=== PATIENT | female | born 1960 | race Caucasian/White ===

== ENCOUNTER 2018-04-06 14:55 | Observation (INO) | payer OTHER ==
[2018-04-06] MEDS ORDERED: ASPIRIN 81 MG PO STA (17:12)
[2018-04-06 17:14] LABS: Basophils % (A) 1 %; Eosinophils # (A) 0.2 k/uL (0-0.7); Eosinophils % (A) 3 %; Lymphocytes # (A) 1.3 k/uL (1.0-4.8); Lymphocytes % (A) 20 %; MCH 32.5 pg (25.0-35.0); MCHC 32.7 g/dL (31.0-37.0); MCV 99.4 fL (80.0-100.0); Macrocytosis Slight; Mean Platelet Volume 7.4; Monocytes # (A) 0.4 k/uL (0-1.0); Monocytes % (A) 6 %; Neutrophils # (A) 4.5 k/uL (1.3-7.7); Neutrophils % (A) 69 %; Platelet Count 228 k/uL (150-450); RBC 4.32 m/uL (3.80-5.40); RDW 14.9 % (11.5-15.5); WBC 6.5 k/uL (3.8-10.6)
[2018-04-06 17:21] LABS: ALT 23 U/L (9-52); AST 23 U/L (14-36); Alkaline Phosphatase 99 U/L (38-126); Anion Gap 12 mmol/L; Blood Urea Nitrogen 7 mg/dL (7-17); Calcium 8.9 mg/dL (8.4-10.2); Carbon Dioxide 23 mmol/L (22-30); Chloride 107 mmol/L (98-107); Glucose 88 mg/dL (74-99); Potassium 4.2 mmol/L (3.5-5.1); Sodium 142 mmol/L (137-145); Total Bilirubin 0.4 mg/dL (0.2-1.3); Total Protein 6.8 g/dL (6.3-8.2)
[2018-04-06 17:28] LABS: Partial Thromboplastin Time 25.1 sec (22.0-30.0); Prothrombin Time 10.1 sec (9.0-12.0)
[2018-04-06 17:31] LABS: Creatine Kinase 107 U/L (30-135)
[2018-04-06 17:43] LABS: Troponin I <0.012 ng/mL (0.000-0.034)
[2018-04-06 17:47] LABS: D-Dimer 0.78 mg/L FEU (<0.60)
--- NOTE | 2018-04-06 18:12 | XR ---
EXAMINATION TYPE: XR chest 2V DATE OF EXAM: 04/06/2018 COMPARISON: 02/18/2014 HISTORY: Chest pain TECHNIQUE: Frontal and lateral views of the chest are obtained. FINDINGS: Heart and mediastinum are normal. Lungs are clear. Diaphragm is normal. Bony thorax appear s normal. There are chest leads. IMPRESSION: No active cardiopulmonary disease. Normal heart. No change.
--- NOTE | 2018-04-06 18:59 | CT ---
EXAMINATION TYPE: CT angio chest DATE OF EXAM: 04/06/2018 6:46 PM COMPARISON: NONE HISTORY: Chest pain with SOB CT DLP: 299.5 mGycm Automated exposure control for dose reduction was used. CONTRAST: CTA scan of the thorax is performed with IV Contrast, patient injected with 90 mL of Isovue 370, pulm onary embolism protocol. There are 3-D post processed images.. FINDINGS: There is subpleural interstitial density at the posterior lung bases. There is no pulmonary consolida tion. There is no pleural effusion. There is no pericardial effusion. There are no filling defects in the pulmonary arteries. Thoracic aorta shows no evidence of aneurysm or dissection. Heart size is fairly normal. There is no pericardial effusion. There is spurring in th e thoracic spine. IMPRESSION: NO EVIDENCE OF PULMONARY EMBOLISM. MINIMAL PULMONARY FIBROTIC CHANGES.
[2018-04-06] MEDS ORDERED: HEPARIN SODIUM,PORCINE 5,000 UNIT/ML 1 ML VIAL IV ONE (20:00)
[2018-04-06] MEDS ORDERED: HEPARIN SOD,PORK IN 0.45% NACL 25,000 UNIT in 0.45% NACL 1 500ML.BAG IV SCH (20:00)
[2018-04-06] MEDS ORDERED: NITROGLYCERIN SL TABS 0.4 MG TAB SUBLINGUAL PRN (20:00)
[2018-04-06 21:25] VITALS: BMI 33.8
[2018-04-06 22:03] LABS: Creatine Kinase 91 U/L (30-135)
[2018-04-06] MEDS ORDERED: ATORVASTATIN 80 MG TAB PO SCH (22:15)
[2018-04-06] MEDS ORDERED: ISOSORBIDE MONONITRATE ER 30 MG TAB.ER.24H PO SCH (22:15)
[2018-04-06] MEDS ORDERED: AMITRIPTYLINE HCL 25 MG TAB PO SCH (22:15)
[2018-04-06] MEDS ORDERED: QUEtiapine 100 MG TAB PO SCH ×2 (22:15→22:37)
[2018-04-06] MEDS ORDERED: OXYBUTYNIN XL 5 MG TAB.ER.24 PO SCH (22:15)
[2018-04-06 22:16] LABS: Creatine Kinase MB 0.9 ng/mL (0.0-2.4); Troponin I <0.012 ng/mL (0.000-0.034)
[2018-04-06] MEDS: METOPROLOL TARTRATE 25 MG TAB PO SCH (22:27)
[2018-04-06] MEDS: oxyCODONE-APAP 10-325MG 1 EACH TAB PO SCH (22:32)
[2018-04-06] MEDS: OXcarbazepine 150 MG TAB PO SCH (22:35)
[2018-04-06] MEDS ORDERED: OXcarbazepine 150 MG TAB PO SCH (22:45)
[2018-04-06] MEDS: PREGABALIN 100 MG CAP PO SCH (23:02)
[2018-04-06] MEDS: QUEtiapine 100 MG TAB PO SCH (23:26)
[2018-04-07 03:37] VITALS: RESP 16
[2018-04-07 03:49] LABS: Creatine Kinase 84 U/L (30-135)
[2018-04-07 03:50] LABS: Cholesterol 219 mg/dL (<200); HDL Cholesterol 45 mg/dL (40-60); LDL Cholesterol,Calculated 125 mg/dL (0-99); Triglycerides 243 mg/dL (<150)
[2018-04-07 04:02] LABS: Troponin I <0.012 ng/mL (0.000-0.034)
[2018-04-07] MEDS: OXcarbazepine 150 MG TAB PO SCH (08:45)
[2018-04-07] MEDS: QUEtiapine 100 MG TAB PO SCH (08:45)
[2018-04-07] MEDS: PREGABALIN 100 MG CAP PO SCH (08:45)
[2018-04-07] MEDS: METOPROLOL TARTRATE 25 MG TAB PO SCH (08:45)
[2018-04-07] MEDS: oxyCODONE-APAP 10-325MG 1 EACH TAB PO SCH (08:46)
[2018-04-07 08:51] VITALS: TEMP 97.6
[2018-04-07] MEDS ORDERED: ASPIRIN 325 MG TAB PO SCH (09:00)
[2018-04-07] MEDS ORDERED: HEPARIN SODIUM,PORCINE 5,000 UNIT/ML 1 ML VIAL IV PRN (10:49)
[2018-04-07 12:01] VITALS: BP 133/81; PULSE 65
--- NOTE | 2018-04-07 12:54 | P.HPIM ---
History of Present Illness 57-year-old female came in with compensative chest pain, her pain started as a back pain in the lower thoracic spine area radiating to the front. Has been going on for couple days but yesterday her pain started going to the front because of which she is concerned came to ER patient pain is about 7/10 in severity nonradiating and associated shortness of breath and nonpleuritic patient and minimally elevated d-dimer because of which patient underwent CT angios the chest which showed severe thoracic spine disease and degenerative disc disease with the bone spurs may be contributing to her pain. Patient troponins are negative or does have some mild acute ST-T wave changes although they're chronic. And is wishing to go home. Patient was complaining of lightheadedness with improved compared to yesterday patient blood pressures in 90s systolic, patient does not have any history of heart failure lisinopril were discontinued and the patient LDL is bit elevated her statin was recently discontinued because of her Muscle aches which improved started after discontinuation of this medication. Patient is on beta danish has mild bradycardia because of which I am cutting down the dose of beta danish to 12.5 twice a day from 25 twice a day if cleared by cardiology patient will be discharged today. Review of Systems REVIEW OF SYSTEMS: CONSTITUTIONAL: No fever, no malaise, no fatigue. HEENT: No recent visual problems or hearing problems. Denied any sore throat. CARDIOVASCULAR: No orthopnea, PND, no palpitations, no syncope. PULMONARY: No shortness of breath, no cough, no hemoptysis. GASTROINTESTINAL: No diarrhea, no nausea, no vomiting, no abdominal pain. Normoactive bowel sounds. NEUROLOGICAL: No headaches, no weakness, no numbness. HEMATOLOGICAL: Denies any bleeding or petechiae. GENITOURINARY: Denies any burning micturition, frequency, or urgency. MUSCULOSKELETAL/RHEUMATOLOGICAL: Denies any joint pain, swelling, or any muscle pain. ENDOCRINE: Denies any polyuria or polydipsia. The rest of the 14-point review of systems is negative. Past Medical History Past Medical History: Coronary Artery Disease (CAD), Chest Pain / Angina, Myocardial Infarction (OR), Thyroid Disorder Additional Past Medical History / Comment(s): interstitial cystitis; Back Pain Last Myocardial Infarction Date:: 2015 History of Any Multi-Drug Resistant Organisms: None Reported Past Surgical History: Back Surgery, Bladder Surgery, Breast Surgery, Heart Catheterization With Stent, Hysterectomy Additional Past Surgical History / Comment(s): bladder stimulator, neck surgery , heart cath with stents in 2013 and 2015 Past Anesthesia/Blood Transfusion Reactions: No Reported Reaction Date of Last Stent Placement:: 2015 Past Psychological History: Anxiety Smoking Status: Current every day smoker Past Alcohol Use History: None Reported Additional Past Alcohol Use History / Comment(s): smokes 1 pack a day since high school Past Drug Use History: Marijuana Additional Drug Use History / Comment(s): smokes every evening Medications and Allergies Home Medications Medication Instructions Recorded Confirmed Type ALPRAZolam [Xanax] 0.5 mg PO BID PRN 02/18/14 04/06/18 History Clopidogrel [Plavix] 75 mg PO DAILY 02/18/14 04/06/18 History Vilazodone HCl [Viibryd] 40 mg PO DAILY 02/18/14 04/06/18 History Aspirin EC [Ecotrin Low Dose] 81 mg PO HS 10/21/15 04/06/18 History Amitriptyline HCl [Elavil] 25 mg PO HS 04/06/18 04/06/18 History Atorvastatin [Lipitor] 80 mg PO HS 04/06/18 04/06/18 History Estradiol [Estrace] 1 mg PO DAILY 04/06/18 04/06/18 History Isosorbide Mononitrate ER [Imdur] 30 mg PO HS 04/06/18 04/06/18 History Levothyroxine Sodium [Synthroid] 100 mcg PO DAILY 04/06/18 04/06/18 History OXcarbazepine [Trileptal] 150 mg PO QAM 04/06/18 04/06/18 History OXcarbazepine [Trileptal] 300 mg PO HS 04/06/18 04/06/18 History Omeprazole [PriLOSEC] 20 mg PO DAILY 04/06/18 04/06/18 History Oxybutynin Chloride [Ditropan XL] 5 mg PO HS 04/06/18 04/06/18 History Pregabalin [Lyrica] 100 mg PO TID 04/06/18 04/06/18 History QUEtiapine XR [SEROquel XR] 200 mg PO HS 04/06/18 04/06/18 History oxyCODONE-APAP 10-325MG [Percocet 1 tab PO TID 04/06/18 04/06/18 History 10-325 mg] Metoprolol Tartrate [Lopressor] 12.5 mg PO BID #0 04/07/18 04/06/18 Rx Allergies Allergy/AdvReac Type Severity Reaction Status Date / Time ciprofloxacin [From Cipro] Allergy Anaphylaxis Verified 04/06/18 21:33 Penicillins Allergy Swelling Verified 04/06/18 21:33 ketorolac tromethamine AdvReac Itching Verified 04/06/18 21:33 [From Toradol] morphine AdvReac Itching Verified 04/06/18 21:33 NSAIDS (Non-Steroidal AdvReac STOMACH Verified 04/06/18 21:33 Anti-Inflamma ULCER Physical Exam Vitals: Vital Signs Temp Pulse Pulse Resp BP BP Pulse Ox 04/07/18 11:59 97.6 F 65 16 133/81 92 L 04/07/18 08:49 97.6 F 58 L 16 138/73 92 L 04/07/18 03:37 45 L 16 04/07/18 03:35 97.9 F 45 L 16 92/46 98 04/07/18 00:00 47 L 18 04/06/18 23:59 97.4 F L 47 L 16 125/58 97 04/06/18 20:54 97.0 F L 49 L 18 113/87 99 04/06/18 20:33 97.0 F L 56 L 18 118/77 95 Intake and Output 04/06/18 04/07/18 04/07/18 22:59 06:59 14:59 Intake Total 136.151 175.104 Balance 136.151 175.104 Intake: Intake, IV Titration 136.151 175.104 Amount Heparin Sod,Pork in 0.45% 136.151 175.104 NaCl 25,000 unit In 0.45 % NaCl 1 500ml.bag @ 12 UNITS/KG/HR 19.59 mls/hr IV .Q24H [facility] Rx#: [id number] Oral 0 Other: Voiding Method Toilet Toilet # Voids 1 1 Weight 78.6 kg 78.6 kg PHYSICAL EXAMINATION: GENERAL: The patient is alert and oriented x3, not in any acute distress. Well developed, well nourished. HEENT: Pupils are round and equally reacting to light. EOMI. No scleral icterus. No conjunctival pallor. Normocephalic, atraumatic. No pharyngeal erythema. No thyromegaly. CARDIOVASCULAR: S1 and S2 present. No murmurs, rubs, or gallops. PULMONARY: Chest is clear to auscultation, no wheezing or crackles. ABDOMEN: Soft, nontender, nondistended, normoactive bowel sounds. No palpable organomegaly. MUSCULOSKELETAL: No joint swelling or deformity. EXTREMITIES: No cyanosis, clubbing, or pedal edema. NEUROLOGICAL: Gross neurological examination did not reveal any focal deficits. SKIN: No rashes. Results CBC & Chem 7: 04/06/18 15:58 04/06/18 15:58 Labs: Abnormal Lab Results - Last 24 Hours (Table) 04/06/18 04/07/18 04/07/18 Range/Units 15:58 03:21 03:21 APTT 33.9 H (22.0-30.0) sec D-Dimer 0.78 H (<0.60) mg/L FEU Triglycerides 243 H (<150) mg/dL Cholesterol 219 H (<200) mg/dL LDL Cholesterol, Calc 125 H (0-99) mg/dL 04/07/18 Range/Units 09:29 APTT 44.6 H (22.0-30.0) sec D-Dimer (<0.60) mg/L FEU Triglycerides (<150) mg/dL Cholesterol (<200) mg/dL LDL Cholesterol, Calc (0-99) mg/dL Thrombosis Risk Factor Assmnt - Choose All That Apply Any of the Below Risk Factors Present?: Yes Each Factor Represents 1 point: Age 41-60 years, Obesity (BMI >25) Other Risk Factors: No Other congenital or acquired thrombophilia - If yes, enter type in comment: No Thrombosis Risk Factor Assessment Total Risk Factor Score: 2 Thrombosis Risk Factor Assessment Level: Low Risk Assessment and Plan Plan: -Chest pain, back pain: Appear to be noncardiac pain to be mostly musculoskeletal patient does have history of headache catheterization and stenting in the past. Ruled out acute coronary syndromes -Dizziness secondary to hypotension related to medications which will be discontinued. -Mild sinus bradycardia cutting down the dose of metoprolol -Hyperlipidemia: Statin was discontinued. Her symptoms are from atorvastatin, can try Crestor but I'll leave the addition to her manager intern and primary care physician -Chronic back pain with severe degenerative disc disease which is contributing to her chest pain. -Rule out pulmonary embolism -Hypothyroidism.
--- NOTE | 2018-04-07 12:54 | P.DS ---
Providers Date of admission: 04/06/18 20:03 Attending physician: Hailey Sellers Consults: 04/06/18 20:01 Consult Physician Urgent Consulting Provider: [facility] Consult Reason/Comments: Chest Pain Do you want consulting provider notified?: Yes, Notify in am Primary care physician: Physician Nonstaff Hospital Course: Please refer to my HPI Plan - Discharge Summary Discharge Rx Participant: No New Discharge Prescriptions: Continue Vilazodone HCl [Viibryd] 40 mg PO DAILY Clopidogrel [Plavix] 75 mg PO DAILY ALPRAZolam [Xanax] 0.5 mg PO BID PRN PRN Reason: Anxiety Aspirin EC [Ecotrin Low Dose] 81 mg PO HS OXcarbazepine [Trileptal] 150 mg PO QAM oxyCODONE-APAP 10-325MG [Percocet 10-325 mg] 1 tab PO TID Pregabalin [Lyrica] 100 mg PO TID Levothyroxine Sodium [Synthroid] 100 mcg PO DAILY Omeprazole [PriLOSEC] 20 mg PO DAILY Estradiol [Estrace] 1 mg PO DAILY Atorvastatin [Lipitor] 80 mg PO HS QUEtiapine XR [SEROquel XR] 200 mg PO HS Isosorbide Mononitrate ER [Imdur] 30 mg PO HS Oxybutynin Chloride [Ditropan XL] 5 mg PO HS OXcarbazepine [Trileptal] 300 mg PO HS Amitriptyline HCl [Elavil] 25 mg PO HS Changed Metoprolol Tartrate [Lopressor] 12.5 mg PO BID #0 Discontinued Lisinopril [Zestril] 20 mg PO DAILY Discharge Medication List ALPRAZolam [Xanax] 0.5 mg PO BID PRN 02/18/14 [History] Clopidogrel [Plavix] 75 mg PO DAILY 02/18/14 [History] Vilazodone HCl [Viibryd] 40 mg PO DAILY 02/18/14 [History] Aspirin EC [Ecotrin Low Dose] 81 mg PO HS 10/21/15 [History] Amitriptyline HCl [Elavil] 25 mg PO HS 04/06/18 [History] Atorvastatin [Lipitor] 80 mg PO HS 04/06/18 [History] Estradiol [Estrace] 1 mg PO DAILY 04/06/18 [History] Isosorbide Mononitrate ER [Imdur] 30 mg PO HS 04/06/18 [History] Levothyroxine Sodium [Synthroid] 100 mcg PO DAILY 04/06/18 [History] OXcarbazepine [Trileptal] 150 mg PO QAM 04/06/18 [History] OXcarbazepine [Trileptal] 300 mg PO HS 04/06/18 [History] Omeprazole [PriLOSEC] 20 mg PO DAILY 04/06/18 [History] Oxybutynin Chloride [Ditropan XL] 5 mg PO HS 04/06/18 [History] Pregabalin [Lyrica] 100 mg PO TID 04/06/18 [History] QUEtiapine XR [SEROquel XR] 200 mg PO HS 04/06/18 [History] oxyCODONE-APAP 10-325MG [Percocet 10-325 mg] 1 tab PO TID 04/06/18 [History] Metoprolol Tartrate [Lopressor] 12.5 mg PO BID #0 04/07/18 [Rx] Follow up Appointment(s)/Referral(s): Nonstaff,Physician [Primary Care Provider] - 1 Week Discharge Disposition: HOME SELF-CARE
--- NOTE | 2018-04-07 13:42 | P.CRDCN ---
History of Present Illness Consult date: 04/07/18 Chief complaint: Upper back pain/chest pain History of present illness: This is a 57-year-old female patient with a past medical history significant for coronary artery disease and prior coronary artery angioplasty and stenting with unknown details since the patient does follow with a churn operator out of the town, Dr. Andersen, significant history of smoking, hypertension, dyslipidemia, presented to the hospital complaining of upper back pain and chest pain. The patient was in her usual state of health until about 3 days ago when she started experiencing initially what it seems to be an upper back pain and subsequently she started experiencing chest discomfort. She stated that her symptoms are mostly with exertion. At the same time she describes the upper back pain once she moves her body and turn right and left. On physical examination she does have tenderness in the upper back. No shortness of breath , dizziness or lightheadedness, or syncope. The EKG showed sinus bradycardia with ST and T wave abnormality seems to be similar to what she had in the past. She did have cardiac enzymes checked and came in to be unremarkable. The patient stated that she underwent a stress test by her churn operator about 3 weeks ago and that was done in his office according to her. We will get a copy of the stress test before we pursue with any further cardiac workup. She has been pain free since she was admitted to the hospital. Past Medical History Past Medical History: Coronary Artery Disease (CAD), Chest Pain / Angina, Myocardial Infarction (OR), Thyroid Disorder Additional Past Medical History / Comment(s): interstitial cystitis; Back Pain Last Myocardial Infarction Date:: 2015 History of Any Multi-Drug Resistant Organisms: None Reported Past Surgical History: Back Surgery, Bladder Surgery, Breast Surgery, Heart Catheterization With Stent, Hysterectomy Additional Past Surgical History / Comment(s): bladder stimulator, neck surgery , heart cath with stents in 2013 and 2016 Past Anesthesia/Blood Transfusion Reactions: No Reported Reaction Date of Last Stent Placement:: 2015 Past Psychological History: Anxiety Smoking Status: Current every day smoker Past Alcohol Use History: None Reported Additional Past Alcohol Use History / Comment(s): smokes 1 pack a day since high school Past Drug Use History: Marijuana Additional Drug Use History / Comment(s): smokes every evening Medications and Allergies Home Medications Medication Instructions Recorded Confirmed Type ALPRAZolam [Xanax] 0.5 mg PO BID PRN 02/18/14 04/06/18 History Clopidogrel [Plavix] 75 mg PO DAILY 02/18/14 04/06/18 History Vilazodone HCl [Viibryd] 40 mg PO DAILY 02/18/14 04/06/18 History Aspirin EC [Ecotrin Low Dose] 81 mg PO HS 10/21/15 04/06/18 History Amitriptyline HCl [Elavil] 25 mg PO HS 04/06/18 04/06/18 History Atorvastatin [Lipitor] 80 mg PO HS 04/06/18 04/06/18 History Estradiol [Estrace] 1 mg PO DAILY 04/06/18 04/06/18 History Isosorbide Mononitrate ER [Imdur] 30 mg PO HS 04/06/18 04/06/18 History Levothyroxine Sodium [Synthroid] 100 mcg PO DAILY 04/06/18 04/06/18 History OXcarbazepine [Trileptal] 150 mg PO QAM 04/06/18 04/06/18 History OXcarbazepine [Trileptal] 300 mg PO HS 04/06/18 04/06/18 History Omeprazole [PriLOSEC] 20 mg PO DAILY 04/06/18 04/06/18 History Oxybutynin Chloride [Ditropan XL] 5 mg PO HS 04/06/18 04/06/18 History Pregabalin [Lyrica] 100 mg PO TID 04/06/18 04/06/18 History QUEtiapine XR [SEROquel XR] 200 mg PO HS 04/06/18 04/06/18 History oxyCODONE-APAP 10-325MG [Percocet 1 tab PO TID 04/06/18 04/06/18 History 10-325 mg] Metoprolol Tartrate [Lopressor] 12.5 mg PO BID #0 04/07/18 04/06/18 Rx Allergies Allergy/AdvReac Type Severity Reaction Status Date / Time ciprofloxacin [From Cipro] Allergy Anaphylaxis Verified 04/06/18 21:33 Penicillins Allergy Swelling Verified 04/06/18 21:33 ketorolac tromethamine AdvReac Itching Verified 04/06/18 21:33 [From Toradol] morphine AdvReac Itching Verified 04/06/18 21:33 NSAIDS (Non-Steroidal AdvReac STOMACH Verified 04/06/18 21:33 Anti-Inflamma ULCER Physical Exam Vitals: Vital Signs Temp Pulse Pulse Resp BP BP Pulse Ox 04/07/18 11:59 97.6 F 65 16 133/81 92 L 04/07/18 08:49 97.6 F 58 L 16 138/73 92 L 04/07/18 03:37 45 L 16 04/07/18 03:35 97.9 F 45 L 16 92/46 98 04/07/18 00:00 47 L 18 04/06/18 23:59 97.4 F L 47 L 16 125/58 97 04/06/18 20:54 97.0 F L 49 L 18 113/87 99 04/06/18 20:33 97.0 F L 56 L 18 118/77 95 Intake and Output 04/06/18 04/07/18 04/07/18 22:59 06:59 14:59 Intake Total 136.151 175.104 Balance 136.151 175.104 Intake: Intake, IV Titration 136.151 175.104 Amount Heparin Sod,Pork in 0.45% 136.151 175.104 NaCl 25,000 unit In 0.45 % NaCl 1 500ml.bag @ 12 UNITS/KG/HR 19.59 mls/hr IV .Q24H [facility] Rx#: [id number] Oral 0 Other: Voiding Method Toilet Toilet # Voids 1 1 Weight 78.6 kg 78.6 kg - Constitutional General appearance: no acute distress - Respiratory Respiratory: bilateral: CTA - Cardiovascular Rhythm: regular Heart sounds: normal: S1, S2 Results 04/06/18 15:58 04/06/18 15:58 Cardiac Enzymes 04/06/18 04/06/18 04/06/18 Range/Units 15:58 15:58 21:20 AST 23 (14-36) U/L CK-MB (CK-2) 1.0 0.9 (0.0-2.4) ng/mL Troponin I <0.012 <0.012 (0.000-0.034) ng/mL 04/07/18 Range/Units 03:21 AST (14-36) U/L CK-MB (CK-2) 1.0 (0.0-2.4) ng/mL Troponin I <0.012 (0.000-0.034) ng/mL Coagulation 04/06/18 04/07/18 04/07/18 Range/Units 15:58 03:21 09:29 PT 10.1 (9.0-12.0) sec APTT 25.1 33.9 H 44.6 H (22.0-30.0) sec Lipids 04/07/18 Range/Units 03:21 Triglycerides 243 H (<150) mg/dL Cholesterol 219 H (<200) mg/dL HDL Cholesterol 45 (40-60) mg/dL CBC 04/06/18 Range/Units 15:58 WBC 6.5 (3.8-10.6) k/uL RBC 4.32 (3.80-5.40) m/uL Hgb 14.0 (11.4-16.0) gm/dL Hct 43.0 (34.0-46.0) % Plt Count 228 (150-450) k/uL Comprehensive Metabolic Panel 04/06/18 Range/Units 15:58 Sodium 142 (137-145) mmol/L Potassium 4.2 (3.5-5.1) mmol/L Chloride 107 (98-107) mmol/L Carbon Dioxide 23 (22-30) mmol/L BUN 7 (7-17) mg/dL Creatinine 0.70 (0.52-1.04) mg/dL Glucose 88 (74-99) mg/dL Calcium 8.9 (8.4-10.2) mg/dL AST 23 (14-36) U/L ALT 23 (9-52) U/L Alkaline Phosphatase 99 (38-126) U/L Total Protein 6.8 (6.3-8.2) g/dL Albumin 4.0 (3.5-5.0) g/dL Current Medications Generic Name Dose Route Start Last Admin Trade Name Freq PRN Reason Stop Dose Admin Amitriptyline HCl 25 mg 04/06/18 22:15 04/06/18 22:48 Elavil PO 25 mg HS [facility] Administration Aspirin 325 mg 04/07/18 09:00 04/07/18 08:45 Aspirin PO 325 mg DAILY [facility] Administration Heparin Sodium (Porcine) 0 unit 04/07/18 10:49 Heparin IV PER PROTOCOL PRN Low PTT Protocol Heparin Sodium/Sodium Chloride 500 mls @ 19.59 mls/hr 04/06/18 20:00 10:55 25,000 unit/ Sodium Chloride IV 17 units/kg/hr .Q24H [facility] 27.75 mls/hr Titration Protocol 12 UNITS/KG/HR Isosorbide Mononitrate 30 mg 04/06/18 22:15 04/06/18 22:48 Imdur PO 30 mg HS [facility] Administration Nitroglycerin 0.4 mg 04/06/18 20:00 Nitrostat SUBLINGUAL Q5M PRN Chest Pain Oxcarbazepine 150 mg 04/06/18 22:15 04/07/18 08:45 Trileptal PO 150 mg QAM [facility] Administration Oxcarbazepine 300 mg 04/06/18 22:45 04/06/18 23:26 Trileptal PO 300 mg HS [facility] Administration Oxybutynin Chloride 5 mg 04/06/18 22:15 04/06/18 22:48 Ditropan Xl PO 5 mg HS [facility] Administration Oxycodone/Acetaminophen 1 each 04/06/18 22:15 04/07/18 08:46 Percocet 10-325 PO 1 each TID [facility] Administration Pregabalin 100 mg 04/06/18 22:15 04/07/18 08:45 Lyrica PO 100 mg TID [facility] Administration Quetiapine Fumarate 100 mg 04/06/18 23:15 04/07/18 08:45 Seroquel PO 100 mg BID [facility] Administration Intake and Output 04/06/18 04/07/18 04/07/18 22:59 06:59 14:59 Intake Total 136.151 175.104 Balance 136.151 175.104 Intake: Intake, IV Titration 136.151 175.104 Amount Heparin Sod,Pork in 0.45% 136.151 175.104 NaCl 25,000 unit In 0.45 % NaCl 1 500ml.bag @ 12 UNITS/KG/HR 19.59 mls/hr IV .Q24H [facility] Rx#: [id number] Oral 0 Other: Voiding Method Toilet Toilet # Voids 1 1 Weight 78.6 kg 78.6 kg 04/06/18 15:58 04/06/18 15:58 Assessment and Plan Assessment: Assessment #1 atypical chest discomfort #2 known CAD and prior angioplasty and stenting #3 significant history of smoking Plan #1 the patient was ruled out for acute coronary event #2 she is bradycardic and will stop the metoprolol #3 obtain a copy of the stress test from her primary churn operator #4 follow-up with the patient. Thank you for allowing us participate in her care
== END 2018-04-07 14:55 | disposition home or self-care (01) ==
LOC: EC 14:55 → 6SEL 20:03
PROVIDERS: ADMIT Internal Medicine; ATTEND Internal Medicine
DX: R07.89 Other chest pain (principal); R06.02 Shortness of breath; R79.89 Other specified abnormal findings of blood chemistry; G89.29 Other chronic pain; M51.34 Other intervertebral disc degeneration, thoracic region; I95.2 Hypotension due to drugs; R00.1 Bradycardia, unspecified; T46.6X5A Adverse effect of antihyperlipidemic and antiarteriosclerotic drugs, initial encounter; T46.4X5A Adverse effect of angiotensin-converting-enzyme inhibitors, initial encounter; F12.90 Cannabis use, unspecified, uncomplicated; F17.210 Nicotine dependence, cigarettes, uncomplicated; N30.10 Interstitial cystitis (chronic) without hematuria; I25.119 Atherosclerotic heart disease of native coronary artery with unspecified angina pectoris; E78.5 Hyperlipidemia, unspecified; K21.9 Gastro-esophageal reflux disease without esophagitis; E03.9 Hypothyroidism, unspecified; E66.9 Obesity, unspecified; M77.9 Enthesopathy, unspecified; Z68.33 Body mass index [BMI] 33.0-33.9, adult; Z79.02 Long term (current) use of antithrombotics/antiplatelets; Z79.899 Other long term (current) drug therapy; Z79.890 Hormone replacement therapy; Z88.0 Allergy status to penicillin; Z88.1 Allergy status to other antibiotic agents; Z88.5 Allergy status to narcotic agent; F41.9 Anxiety disorder, unspecified; Z88.6 Allergy status to analgesic agent; I25.2 Old myocardial infarction; Z95.5 Presence of coronary angioplasty implant and graft; Z98.1 Arthrodesis status; Z90.710 Acquired absence of both cervix and uterus
CPT/HCPCS: 99285 ×2; 96374 ×2; 96376 ×2; 36415; 85379; 83880; 80061; 80053; 82550 ×2; 82553 ×2; 84484 ×2; 85025; 85610; 85730 ×2; 71046; 71275; G0378 ×2; J1644 ×2; Q9967

== ENCOUNTER 2018-09-13 14:35 | Emergency (ER) | payer OTHER ==
[2018-09-13 15:22] VITALS: RESP 18
[2018-09-13] MEDS ORDERED: SODIUM CHLORIDE 0.9% 1,000 ML IV STA (16:54)
[2018-09-13] MEDS ORDERED: MORPHINE SULFATE 4 MG/ML SYRINGE IV STA (16:54)
[2018-09-13 17:41] LABS: Basophils % (A) 0 %; Eosinophils # (A) 0.1 k/uL (0-0.7); Eosinophils % (A) 1 %; Lymphocytes # (A) 1.4 k/uL (1.0-4.8); Lymphocytes % (A) 22 %; MCH 33.6 pg (25.0-35.0); MCHC 33.3 g/dL (31.0-37.0); MCV 100.8 fL (80.0-100.0); Macrocytosis Slight; Mean Platelet Volume 7.1; Monocytes # (A) 0.3 k/uL (0-1.0); Monocytes % (A) 5 %; Neutrophils # (A) 4.6 k/uL (1.3-7.7); Neutrophils % (A) 71 %; Platelet Count 232 k/uL (150-450); RBC 4.46 m/uL (3.80-5.40); RDW 13.6 % (11.5-15.5); WBC 6.5 k/uL (3.8-10.6)
[2018-09-13 17:49] LABS: Bacteria,Urine Many /hpf; RBC,Urine <1 /hpf (0-5); Squamous Epithelial Cell,Urine 2 /hpf (0-4); WBC,Urine <1 /hpf (0-5)
[2018-09-13 17:53] LABS: ALT 13 U/L (9-52); AST 25 U/L (14-36); Albumin 4.2 g/dL (3.5-5.0); Alkaline Phosphatase 103 U/L (38-126); Anion Gap 7 mmol/L; Blood Urea Nitrogen 8 mg/dL (7-17); Carbon Dioxide 26 mmol/L (22-30); Chloride 106 mmol/L (98-107); Glucose 94 mg/dL (74-99); Lipase 37 U/L (23-300); Magnesium 2.1 mg/dL (1.6-2.3); Potassium 4.6 mmol/L (3.5-5.1); Sodium 139 mmol/L (137-145); Total Bilirubin 0.5 mg/dL (0.2-1.3); Total Protein 7.3 g/dL (6.3-8.2)
[2018-09-13 17:55] LABS: Appearance,Urine Clear (Clear); Color,Urine Colorless; Specific Gravity,Urine 1.002 (1.001-1.035)
[2018-09-13 17:56] LABS: Bilirubin Confirmation, Urine Negative (Negative); Bilirubin,Urine Negative (Negative); Blood,Urine Negative (Negative); Glucose,Urine (UA) Negative (Negative); Ketones,Urine Negative (Negative); Leukocyte Esterase,Urine Negative (Negative); Nitrite,Urine Negative (Negative); Protein Confirmation,Urine Negative (Negative); Urobilinogen,Urine <2.0 mg/dL (<2.0)
[2018-09-13 17:57] LABS: Creatine Kinase 212 U/L (30-135); Partial Thromboplastin Time 26.7 sec (22.0-30.0); Prothrombin Time 10.9 sec (9.0-12.0)
[2018-09-13 18:10] LABS: Troponin I <0.012 ng/mL (0.000-0.034)
--- NOTE | 2018-09-13 19:22 | CT ---
EXAMINATION TYPE: CT ChestAbdPelvis w con DATE OF EXAM: 09/13/2018 COMPARISON: None HISTORY: Back and bilateral leg pain. CT DLP: 892.1 mGycm Automated exposure control for dose reduction was used. CONTRAST: CT scan of the chest, abdomen and pelvis is performed without Oral Contrast and with IV Contrast, pat ient injected with 100 mL of Isovue 300. FINDINGS: The lungs are clear of infiltrate. There is no pleural effusion. There is no evidence of a pulmonary mass. Thoracic aorta is intact without evidence of aneurysm or dissection. There is no mediastinal ad enopathy. There are no hilar masses. Heart size is fairly normal. There is no pericardial effusion. T here is no evidence of a pulmonary embolism. Liver spleen pancreas gallbladder appear normal. Bile ducts are not dilated. There is no retroperiton eal adenopathy. There is no adrenal mass. Kidneys show satisfactory contrast opacification. There is no hydronephrosis. Stomach appears normal. Bladder distends smoothly. There is no inguinal hernia. There is no free fluid in the pelvis. I see n o intestinal wall thickening. There are no dilated loops. Appendix is not definitely seen. There is n o sign of appendicitis. There is no mesenteric edema or adenopathy. There is previous posterior fusio n surgery with osteosclerosis and laminectomy defect. Thoracic and lumbar spine show no compression f racture. There is multilevel spondylotic changes in the thoracic and lumbar spine. There is neurostim ulator in the sacrum. Abdominal aorta is intact without evidence of aneurysm or dissection. There is posterior fusion surgery at L4 and L5 and S1. There is no mesenteric edema or adenopathy. I see no focal bone destruction. There is no evidence of a bowel obstruction. There is no free air. IMPRESSION: Previous back surgery. No sign of acute abdomen and pelvis.
--- NOTE | 2018-09-13 19:53 | ED ---
General Adult HPI - General Chief complaint: Back Pain/Injury Stated complaint: Back pain Time Seen by Provider: 09/13/18 16:38 Source: patient, RN notes reviewed Mode of arrival: ambulatory Limitations: no limitations - History of Present Illness Initial comments: 58-year-old female presents to the emergency department for a chief complaint of right-sided back pain 3 days. Patient states she started working at [employer] 4 days ago and has been walking and bending down to full clothing frequently. She states this is new for her and she has previously been on disability. She states the pain started shortly after this. However pain is now radiating into her thoracic area in the right side back. Denies chest pain. She states she also has pain radiating down her right right leg and states it is tingling. She denies weakness, right leg. She denies numbness or tingling in the groin or buttock. She denies bowel changes. She does admit she has been urinating more frequently but has chronic cystitis and has a bladder stimulator in place. She denies any difficulty urinating. She denies any fevers or chills at home. Patient has no other complaints at this time including shortness of breath , chest pain, abdominal pain, nausea or vomiting, headache, or visual changes. - Related Data Home Medications Medication Instructions Recorded Confirmed ALPRAZolam [Xanax] 0.5 mg PO BID PRN 02/18/14 09/13/18 Clopidogrel [Plavix] 75 mg PO DAILY 02/18/14 09/13/18 Vilazodone HCl [Viibryd] 40 mg PO DAILY 02/18/14 09/13/18 Amitriptyline HCl [Elavil] 25 mg PO HS 04/06/18 09/13/18 Estradiol [Estrace] 1 mg PO DAILY 04/06/18 09/13/18 Levothyroxine Sodium [Synthroid] 100 mcg PO DAILY 04/06/18 09/13/18 OXcarbazepine [Trileptal] 300 mg PO QAM 04/06/18 09/13/18 OXcarbazepine [Trileptal] 600 mg PO HS 04/06/18 09/13/18 Omeprazole [PriLOSEC] 20 mg PO DAILY 04/06/18 09/13/18 oxyCODONE-APAP 10-325MG [Percocet 1 tab PO TID 04/06/18 09/13/18 10-325 mg] Isosorbide Mononitrate ER [Imdur] 60 mg PO DAILY 09/13/18 09/13/18 Lisinopril [Zestril] 20 mg PO HS 09/13/18 09/13/18 Nitroglycerin Sl Tabs [Nitrostat] 0.4 mg SUBLINGUAL Q5M PRN 09/13/18 09/13/18 Pregabalin [Lyrica] 150 mg PO TID 09/13/18 09/13/18 QUEtiapine FUMARATE [Seroquel Xr] 300 mg PO HS 09/13/18 09/13/18 amLODIPine [Norvasc] 5 mg PO HS 09/13/18 09/13/18 Allergies Allergy/AdvReac Type Severity Reaction Status Date / Time ciprofloxacin [From Cipro] Allergy Anaphylaxis Verified 09/13/18 16:48 Penicillins Allergy Swelling Verified 09/13/18 16:48 vancomycin Allergy Dyspnea Verified 09/13/18 16:48 ketorolac tromethamine AdvReac Itching Verified 09/13/18 16:48 [From Toradol] morphine AdvReac Itching Verified 09/13/18 16:48 NSAIDS (Non-Steroidal AdvReac STOMACH Verified 09/13/18 16:48 Anti-Inflamma ULCER Review of Systems ROS Statement: Those systems with pertinent positive or pertinent negative responses have been documented in the HPI. ROS Other: All systems not noted in ROS Statement are negative. Past Medical History Past Medical History: Coronary Artery Disease (CAD), Chest Pain / Angina, Myocardial Infarction ([place]), Thyroid Disorder Additional Past Medical History / Comment(s): interstitial cystitis; Back Pain Last Myocardial Infarction Date:: 2015 History of Any Multi-Drug Resistant Organisms: None Reported Past Surgical History: Back Surgery, Bladder Surgery, Breast Surgery, Heart Catheterization With Stent, Hysterectomy Additional Past Surgical History / Comment(s): bladder stimulator, neck surgery , heart cath with stents in 2013 and 2015 Past Anesthesia/Blood Transfusion Reactions: No Reported Reaction Date of Last Stent Placement:: 2015 Past Psychological History: Anxiety Smoking Status: Current every day smoker Past Alcohol Use History: None Reported Past Drug Use History: Marijuana General Exam Limitations: no limitations General appearance: alert, in no apparent distress Head exam: Present: atraumatic, normocephalic, normal inspection Eye exam: Present: normal appearance, PERRL, EOMI. Absent: scleral icterus, conjunctival injection, periorbital swelling ENT exam: Present: normal exam, mucous membranes moist Neck exam: Present: normal inspection, full ROM. Absent: tenderness, meningismus, lymphadenopathy Respiratory exam: Present: normal lung sounds bilaterally. Absent: respiratory distress, wheezes, rales, rhonchi, stridor Cardiovascular Exam: Present: regular rate, normal rhythm, normal heart sounds. Absent: systolic murmur, diastolic murmur, rubs, gallop, clicks GI/Abdominal exam: Present: soft, normal bowel sounds. Absent: distended, tenderness, guarding, rebound, rigid Extremities exam: Present: normal capillary refill (Mickey refill less than 2 seconds and DP pulse 2+ in the right lower extremity) Back exam: Present: tenderness (Tenderness in the right side lower back as well as right buttock, no lumbar spine tenderness.) Neurological exam: Present: alert, oriented X3, CN II-XII intact Psychiatric exam: Present: normal affect, normal mood Course Vital Signs 09/13/18 09/13/18 15:18 19:18 Temperature 98.6 F 97.9 F Pulse Rate 78 60 Respiratory 18 18 Rate Blood Pressure 172/84 135/79 O2 Sat by Pulse 98 97 Oximetry EKG Findings - EKG Comments: EKG Findings:: Normal sinus rhythm, ventricular rate 63, QRS duration 108, QTc 462, no evidence of ST elevation, Medical Decision Making - Medical Decision Making 58-year-old female presents to the emergency department for a chief complaint of right-sided back pain. Patient did recently begin a new job that has required increased physical activity. Patient denies midline pain. She denies fevers or chills. She denies saddle anesthesia or bladder or bowel changes. She denies weakness in the legs. Patient states the pain is now radiating into the thoracic area and she wanted to make sure nothing else was going on. As pain is radiating now into the thoracic area EKG was done which shows sinus rhythm with a ventricular rate of 63, FL interval 182, QRS duration 108, QTc 462. Troponin negative. CBC and CMP are unremarkable. CT chest abdomen and pelvis was ordered which showed no signs of acute abdomen or pelvis. Thoracic and lumbar spine shows no compression fracture. Multilevel spondylitic changes in the thoracic and lumbar spine with a neurostimulator in the sacrum. Abdominal aorta is intact without evidence of aneurysm or dissection. Thoracic aorta no evidence of aneurysm or dissection. Urine negative. Patient likely has a strain of the back as well as maybe some sciatic pain. - Lab Data Result diagrams: 09/13/18 17:19 09/13/18 17:19 Lab Results 09/13/18 09/13/18 09/13/18 Range/Units 17:19 17:19 17:19 WBC 6.5 (3.8-10.6) k/uL RBC 4.46 (3.80-5.40) m/uL Hgb 15.0 (11.4-16.0) gm/dL Hct 45.0 (34.0-46.0) % MCV 100.8 H (80.0-100.0) fL MCH 33.6 (25.0-35.0) pg MCHC 33.3 (31.0-37.0) g/dL RDW 13.6 (11.5-15.5) % Plt Count 232 (150-450) k/uL Neutrophils % 71 % Lymphocytes % 22 % Monocytes % 5 % Eosinophils % 1 % Basophils % 0 % Neutrophils # 4.6 (1.3-7.7) k/uL Lymphocytes # 1.4 (1.0-4.8) k/uL Monocytes # 0.3 (0-1.0) k/uL Eosinophils # 0.1 (0-0.7) k/uL Basophils # 0.0 (0-0.2) k/uL Macrocytosis Slight PT (9.0-12.0) sec INR (<1.2) APTT (22.0-30.0) sec Sodium 139 (137-145) mmol/L Potassium 4.6 (3.5-5.1) mmol/L Chloride 106 (98-107) mmol/L Carbon Dioxide 26 (22-30) mmol/L Anion Gap 7 mmol/L BUN 8 (7-17) mg/dL Creatinine 0.64 (0.52-1.04) mg/dL Est GFR (CKD-EPI)AfAm >90 (>60 ml/min/1.73 sqM) Est GFR (CKD-EPI)NonAf >90 (>60 ml/min/1.73 sqM) Glucose 94 (74-99) mg/dL Calcium 9.0 (8.4-10.2) mg/dL Magnesium 2.1 (1.6-2.3) mg/dL Total Bilirubin 0.5 (0.2-1.3) mg/dL AST 25 (14-36) U/L ALT 13 (9-52) U/L Alkaline Phosphatase 103 (38-126) U/L Total Creatine Kinase 212 H (30-135) U/L CK-MB (CK-2) 2.0 (0.0-2.4) ng/mL CK-MB (CK-2) Rel Index 0.9 Troponin I <0.012 (0.000-0.034) ng/mL Total Protein 7.3 (6.3-8.2) g/dL Albumin 4.2 (3.5-5.0) g/dL Lipase 37 (23-300) U/L Urine Color Urine Appearance (Clear) Urine pH (5.0-8.0) Ur Specific [place] (1.001-1.035) Ur Protein Confirm (Negative) Urine Glucose (UA) (Negative) Urine Ketones (Negative) Urine Blood (Negative) Urine Nitrite (Negative) Urine Bilirubin (Negative) Ur Bilirubin Confirm (Negative) Urine Urobilinogen (<2.0) mg/dL Ur Leukocyte Esterase (Negative) Urine RBC (0-5) /hpf Urine WBC (0-5) /hpf Ur Squamous Epith Cells (0-4) /hpf Urine Bacteria (None) /hpf 09/13/18 09/13/18 Range/Units 17:19 17:19 WBC (3.8-10.6) k/uL RBC (3.80-5.40) m/uL Hgb (11.4-16.0) gm/dL Hct (34.0-46.0) % MCV (80.0-100.0) fL MCH (25.0-35.0) pg MCHC (31.0-37.0) g/dL RDW (11.5-15.5) % Plt Count (150-450) k/uL Neutrophils % % Lymphocytes % % Monocytes % % Eosinophils % % Basophils % % Neutrophils # (1.3-7.7) k/uL Lymphocytes # (1.0-4.8) k/uL Monocytes # (0-1.0) k/uL Eosinophils # (0-0.7) k/uL Basophils # (0-0.2) k/uL Macrocytosis PT 10.9 (9.0-12.0) sec INR 1.0 (<1.2) APTT 26.7 (22.0-30.0) sec Sodium (137-145) mmol/L Potassium (3.5-5.1) mmol/L Chloride (98-107) mmol/L Carbon Dioxide (22-30) mmol/L Anion Gap mmol/L BUN (7-17) mg/dL Creatinine (0.52-1.04) mg/dL Est GFR (CKD-EPI)AfAm (>60 ml/min/1.73 sqM) Est GFR (CKD-EPI)NonAf (>60 ml/min/1.73 sqM) Glucose (74-99) mg/dL Calcium (8.4-10.2) mg/dL Magnesium (1.6-2.3) mg/dL Total Bilirubin (0.2-1.3) mg/dL AST (14-36) U/L ALT (9-52) U/L Alkaline Phosphatase (38-126) U/L Total Creatine Kinase (30-135) U/L CK-MB (CK-2) (0.0-2.4) ng/mL CK-MB (CK-2) Rel Index Troponin I (0.000-0.034) ng/mL Total Protein (6.3-8.2) g/dL Albumin (3.5-5.0) g/dL Lipase (23-300) U/L Urine Color Colorless Urine Appearance Clear (Clear) Urine pH 7.0 (5.0-8.0) Ur Specific [place] 1.002 (1.001-1.035) Ur Protein Confirm Negative (Negative) Urine Glucose (UA) Negative (Negative) Urine Ketones Negative (Negative) Urine Blood Negative (Negative) Urine Nitrite Negative (Negative) Urine Bilirubin Negative (Negative) Ur Bilirubin Confirm Negative (Negative) Urine Urobilinogen <2.0 (<2.0) mg/dL Ur Leukocyte Esterase Negative (Negative) Urine RBC <1 (0-5) /hpf Urine WBC <1 (0-5) /hpf Ur Squamous Epith Cells 2 (0-4) /hpf Urine Bacteria Many H (None) /hpf When compared to previous EKG there are: no significant change Disposition Clinical Impression: Mechanical back pain Disposition: HOME SELF-CARE Condition: Good Instructions: Acute Low Back Pain (ED), Chronic Back Pain (ED) Additional Instructions: Please take all medications for pain. Stretch the area. Follow-up with orthopedics in one to 2 days. Return if you have any worsening symptoms. Is patient prescribed a controlled substance at d/c from ED?: No Referrals: Nonstaff,Physician [Primary Care Provider] - 1-2 days Sy Casillas DO [Doctor of Osteopathic Medicine] - 1-2 days Time of Disposition: 19:53
[2018-09-13 20:17] VITALS: BP 149/79; PULSE 89; TEMP 98
== END 2018-09-13 20:18 | disposition home or self-care (01) ==
LOC: EC 14:35
DX: M54.9 Dorsalgia, unspecified (principal); I25.2 Old myocardial infarction; I25.119 Atherosclerotic heart disease of native coronary artery with unspecified angina pectoris; F41.9 Anxiety disorder, unspecified; E07.9 Disorder of thyroid, unspecified; F17.200 Nicotine dependence, unspecified, uncomplicated; Z79.02 Long term (current) use of antithrombotics/antiplatelets; Z79.899 Other long term (current) drug therapy; Z88.0 Allergy status to penicillin; Z88.1 Allergy status to other antibiotic agents; Z88.6 Allergy status to analgesic agent; Z88.5 Allergy status to narcotic agent; Z95.5 Presence of coronary angioplasty implant and graft; Z96.9 Presence of functional implant, unspecified
CPT/HCPCS: 36415; 93005; 80053; 82550; 82553; 83690; 83735; 84484; 85025; 85610; 85730; 81003; 71260; 74177; 99284; 96374; 96361 ×3; J2270; Q9967

== ENCOUNTER → 2018-10-18 | Outpatient (CLI) | payer OTHER ==
[2018-10-18 15:05] LABS: HCT 47.4 % (34.0-46.0); HGB 15.1 gm/dL (11.4-16.0); MCH 32.7 pg (25.0-35.0); MCHC 31.9 g/dL (31.0-37.0); MCV 102.6 fL (80.0-100.0); Macrocytosis Slight; Mean Platelet Volume 6.8; Platelet Count 247 k/uL (150-450); RBC 4.62 m/uL (3.80-5.40); RDW 13.7 % (11.5-15.5); WBC 6.6 k/uL (3.8-10.6)
[2018-10-18 15:26] LABS: INR 0.9 (<1.2); Partial Thromboplastin Time 25.8 sec (22.0-30.0); Prothrombin Time 10.1 sec (9.0-12.0)
[2018-10-18 19:51] LABS: Anion Gap 6.7 mmol/L (4.00-12.00); Calcium 8.6 mg/dL (8.7-10.3); Carbon Dioxide 27.3 mmol/L (21.6-31.8); LDL Cholesterol,Calculated 171.4 mg/dL (0.0-131.0); Potassium 4.8 mmol/L (3.5-5.5); VLDL Calculation 34.6 mg/dL (5.00-40.00)
== END ==
LOC: LABWHC1 14:16
PROVIDERS: ATTEND Internal Medicine Cardiovascular Disease
DX: Z01.810 Encounter for preprocedural cardiovascular examination (principal); I10 Essential (primary) hypertension; E78.2 Mixed hyperlipidemia
CPT/HCPCS: 36415; 80048; 80061; 85027; 85610; 85730

== ENCOUNTER 2019-02-12 17:44 | Emergency (ER) | payer OTHER ==
--- NOTE | 2019-02-12 18:34 | ED ---
General Adult HPI - General Source: patient, RN notes reviewed, old records reviewed Mode of arrival: ambulatory Limitations: no limitations <Viraj Rivas - Last Filed: 02/13/19 04:36> <Tere Cerna - Last Filed: 02/14/19 06:15> - General Chief complaint: Urogenital Stated complaint: poss UTI Time Seen by Provider: 02/12/19 18:10 - History of Present Illness Initial comments: 58-year-old female patient past medical history of chronic back pain, coronary disease and interstitial cystitis presents to ED with approximately 3 days of frequency urgency and dysuria. Recently she has urinary tract infection. Patient reports some mild suprapubic discomfort. Patient denies any other complaints at this time. Systemic: Pt denies fatigue, myalgia, fever/chills, rash. Pt denies weakness, night sweats, weight loss. Neuro: Pt denies headache, visual disturbances, syncope or pre-syncope. HEENT: Pt denies ocular discharge or irritation, otalgia, rhinorrhea, pharyngitis or notable lymphadenopathy. Cardiopulmonary: Pt denies chest pain, SOB, heart palpitations, dyspnea on exertion. Abdominal/GI: Pt denies abdominal pain, n/v/d. : Denies new onset urinary or bowel incontinence. MSK: Pt denies myalgia, loss of strength or function in extremities. Neuro: Pt denies new onset weakness, paresthesias. (Viraj Rivas) - Related Data Home Medications Medication Instructions Recorded Confirmed ALPRAZolam [Xanax] 0.5 mg PO BID PRN 02/18/14 09/13/18 Clopidogrel [Plavix] 75 mg PO DAILY 02/18/14 09/13/18 Vilazodone HCl [Viibryd] 40 mg PO DAILY 02/18/14 09/13/18 Amitriptyline HCl [Elavil] 25 mg PO HS 04/06/18 09/13/18 Estradiol [Estrace] 1 mg PO DAILY 04/06/18 09/13/18 Levothyroxine Sodium [Synthroid] 100 mcg PO DAILY 04/06/18 09/13/18 OXcarbazepine [Trileptal] 300 mg PO QA 04/06/18 09/13/18 OXcarbazepine [Trileptal] 600 mg PO HS 04/06/18 09/13/18 Omeprazole [PriLOSEC] 20 mg PO DAILY 04/06/18 09/13/18 oxyCODONE-APAP 10-325MG [Percocet 1 tab PO TID 04/06/18 09/13/18 10-325 mg] Isosorbide Mononitrate ER [Imdur] 60 mg PO DAILY 09/13/18 09/13/18 Lisinopril [Zestril] 20 mg PO HS 09/13/18 09/13/18 Nitroglycerin Sl Tabs [Nitrostat] 0.4 mg SUBLINGUAL Q5M PRN 09/13/18 09/13/18 Pregabalin [Lyrica] 150 mg PO TID 09/13/18 09/13/18 QUEtiapine FUMARATE [Seroquel Xr] 300 mg PO HS 09/13/18 09/13/18 amLODIPine [Norvasc] 5 mg PO HS 09/13/18 09/13/18 Allergies Allergy/AdvReac Type Severity Reaction Status Date / Time ciprofloxacin [From Cipro] Allergy Anaphylaxis Verified 09/13/18 16:48 Penicillins Allergy Swelling Verified 09/13/18 16:48 vancomycin Allergy Dyspnea Verified 09/13/18 16:48 ketorolac tromethamine AdvReac Itching Verified 09/13/18 16:48 [From Toradol] morphine AdvReac Itching Verified 09/13/18 16:48 NSAIDS (Non-Steroidal AdvReac STOMACH Verified 09/13/18 16:48 Anti-Inflamma ULCER Review of Systems ROS Other: All systems not noted in ROS Statement are negative. <Viraj Rivas - Last Filed: 02/13/19 04:36> ROS Other: All systems not noted in ROS Statement are negative. <Tere Cerna - Last Filed: 02/14/19 06:15> ROS Statement: Those systems with pertinent positive or pertinent negative responses have been documented in the HPI. Past Medical History Past Medical History: Coronary Artery Disease (CAD), Chest Pain / Angina, Myocardial Infarction ([place]), Thyroid Disorder Additional Past Medical History / Comment(s): interstitial cystitis; Back Pain Last Myocardial Infarction Date:: 2015 History of Any Multi-Drug Resistant Organisms: None Reported Past Surgical History: Back Surgery, Bladder Surgery, Breast Surgery, Heart Catheterization With Stent, Hysterectomy Additional Past Surgical History / Comment(s): bladder stimulator, neck surgery, heart cath with stents in 2014 and 2016 Past Anesthesia/Blood Transfusion Reactions: No Reported Reaction Date of Last Stent Placement:: 2015 Past Psychological History: Anxiety Smoking Status: Current every day smoker Past Alcohol Use History: None Reported Past Drug Use History: Marijuana <Viraj Rivas - Last Filed: 02/13/19 04:36> General Exam Limitations: no limitations <Viraj Rivas - Last Filed: 02/13/19 04:36> - General Exam Comments Initial Comments: Constitutional: NAD, AOX3, Pt has pleasant affect. HEENT: NC/AT, trachea midline, neck supple, no lymphadenopathy. Posterior pharynx non erythematous, without exudates. External ears appear normal, without discharge. Mucous membranes moist. Eyes PERRLA, EOM intact. There is no scleral icterus. No pallor noted. Cardiopulmonary: RRR, no murmurs, rubs or gallops, no JVD noted. Lungs CTAB in anterior and posterior singleton. No peripheral edema. Abdominal exam: Abdomen soft and non-distended. Mild suprapubic tenderness to palpation. There is no rebound tenderness. No guarding or rigidity. Bowel sounds active in LLQ. No hepatosplenomegaly. No ecchymosis Neuro: CN II-XII grossly intact. No nuchal rigidity. MSK: No posterior calf tenderness bilaterally, homans sign negative bilaterally. Posterior tibialis and radial pulse +2 bilaterally. Sensation intact in upper and lower extremities. Full active ROM in upper and lower extremities, 5/5 stregnth. (Viraj Rivas) Course Vital Signs 02/12/19 02/12/19 18:01 21:35 Temperature 99.0 F 97.7 F Pulse Rate 81 61 Respiratory 18 15 Rate Blood Pressure 119/75 O2 Sat by Pulse 96 95 Oximetry Medical Decision Making - Lab Data Result diagrams: 02/12/19 19:25 02/12/19 19:25 <Viraj Rivas - Last Filed: 02/13/19 04:36> - Lab Data Result diagrams: 02/12/19 19:25 02/12/19 19:25 <Tere Cerna - Last Filed: 05/13/19 06:15> - Medical Decision Making 58-year-old female patient past medical history of chronic back pain, coronary disease and interstitial cystitis presents to ED with approximately 3 days of frequency urgency and dysuria. Recently she has urinary tract infection. Patient reports some mild suprapubic discomfort. Patient denies any other complaints at this time. Patient vital signs stable, afebrile. Physical exam displayed: Abdomen soft and non-distended. Mild suprapubic tenderness to palpation. There is no rebound tenderness. No guarding or rigidity. Bowel sounds active in LLQ. No hepatosplenomegaly. No ecchymosis. CBC non-impressive. CMP nonimpressive. Lactic acid within normal limits. UA negative. CT abdomen and pelvis displayed mild wall thickening which is likely chronic cystitis. Osteoarthritis. Patient has had regular bowel movements. Patient will be discharged and follow up with urologist. Patient return to ER if condition worsens. Case discussed with Dr. Spivey. (Viraj Rivas) I was available for consultation in the emergency department. The history and physical exam were done by the midlevel provider. I was consulted for this patient's care. I reviewed the case with the midlevel provider and based on their presentation of the patient, I agree with the assessment, medical decision making and plan of care as documented. Chart was dictated using [employer] dictation software. Attempts were made to correct any dictation errors however some typographical errors may persist. (Tere Cerna) - Lab Data Lab Results 02/12/19 02/12/19 02/12/19 Range/Units 18:59 19:25 19:25 WBC 7.7 (3.8-10.6) k/uL RBC 4.51 (3.80-5.40) m/uL Hgb 14.8 (11.4-16.0) gm/dL Hct 44.9 (34.0-46.0) % MCV 99.7 (80.0-100.0) fL MCH 32.9 (25.0-35.0) pg MCHC 33.0 (31.0-37.0) g/dL RDW 13.7 (11.5-15.5) % Plt Count 218 (150-450) k/uL Neutrophils % 66 % Lymphocytes % 24 % Monocytes % 5 % Eosinophils % 3 % Basophils % 0 % Neutrophils # 5.1 (1.3-7.7) k/uL Lymphocytes # 1.9 (1.0-4.8) k/uL Monocytes # 0.4 (0-1.0) k/uL Eosinophils # 0.3 (0-0.7) k/uL Basophils # 0.0 (0-0.2) k/uL Sodium 142 (137-145) mmol/L Potassium 3.5 (3.5-5.1) mmol/L Chloride 108 H (98-107) mmol/L Carbon Dioxide 27 (22-30) mmol/L Anion Gap 7 mmol/L BUN 8 (7-17) mg/dL Creatinine 0.63 (0.52-1.04) mg/dL Est GFR (CKD-EPI)AfAm >90 (>60 ml/min/1.73 sqM) Est GFR (CKD-EPI)NonAf >90 (>60 ml/min/1.73 sqM) Glucose 107 H (74-99) mg/dL Plasma Lactic Acid [place] (0.7-2.0) mmol/L Calcium 9.2 (8.4-10.2) mg/dL Magnesium 1.9 (1.6-2.3) mg/dL Total Bilirubin 0.5 (0.2-1.3) mg/dL AST 17 (14-36) U/L ALT 17 (9-52) U/L Alkaline Phosphatase 94 (38-126) U/L Total Protein 6.7 (6.3-8.2) g/dL Albumin 4.0 (3.5-5.0) g/dL Urine Color Light Yellow Urine Appearance Clear (Clear) Urine pH 6.0 (5.0-8.0) Ur Specific [place] 1.007 (1.001-1.035) Urine Protein Negative (Negative) Urine Glucose (UA) Negative (Negative) Urine Ketones Negative (Negative) Urine Blood Negative (Negative) Urine Nitrite Negative (Negative) Urine Bilirubin Negative (Negative) Urine Urobilinogen <2.0 (<2.0) mg/dL Ur Leukocyte Esterase Negative (Negative) 02/12/19 Range/Units 19:25 WBC (3.8-10.6) k/uL RBC (3.80-5.40) m/uL Hgb (11.4-16.0) gm/dL Hct (34.0-46.0) % MCV (80.0-100.0) fL MCH (25.0-35.0) pg MCHC (31.0-37.0) g/dL RDW (11.5-15.5) % Plt Count (150-450) k/uL Neutrophils % % Lymphocytes % % Monocytes % % Eosinophils % % Basophils % % Neutrophils # (1.3-7.7) k/uL Lymphocytes # (1.0-4.8) k/uL Monocytes # (0-1.0) k/uL Eosinophils # (0-0.7) k/uL Basophils # (0-0.2) k/uL Sodium (137-145) mmol/L Potassium (3.5-5.1) mmol/L Chloride (98-107) mmol/L Carbon Dioxide (22-30) mmol/L Anion Gap mmol/L BUN (7-17) mg/dL Creatinine (0.52-1.04) mg/dL Est GFR (CKD-EPI)AfAm (>60 ml/min/1.73 sqM) Est GFR (CKD-EPI)NonAf (>60 ml/min/1.73 sqM) Glucose (74-99) mg/dL Plasma Lactic Acid [place] 1.5 (0.7-2.0) mmol/L Calcium (8.4-10.2) mg/dL Magnesium (1.6-2.3) mg/dL Total Bilirubin (0.2-1.3) mg/dL AST (14-36) U/L ALT (9-52) U/L Alkaline Phosphatase (38-126) U/L Total Protein (6.3-8.2) g/dL Albumin (3.5-5.0) g/dL Urine Color Urine Appearance (Clear) Urine pH (5.0-8.0) Ur Specific [place] (1.001-1.035) Urine Protein (Negative) Urine Glucose (UA) (Negative) Urine Ketones (Negative) Urine Blood (Negative) Urine Nitrite (Negative) Urine Bilirubin (Negative) Urine Urobilinogen (<2.0) mg/dL Ur Leukocyte Esterase (Negative) Disposition Is patient prescribed a controlled substance at d/c from ED?: No <Viraj Rivas - Last Filed: 02/13/19 04:36> <Tere Cerna P - Last Filed: 02/14/19 06:15> Clinical Impression: Abdominal pain Disposition: HOME SELF-CARE Condition: Stable Instructions (If sedation given, give patient instructions): Abdominal Pain (ED) Additional Instructions: Patient to adhere to previously discussed treatment plan and will take medication(s) as directed. Patient to follow up with PCP in 1-2 days. Patient to return to ED if symptoms do not improve. Please follow-up with primary care provider in 1-2 days. Please follow-up with urologist in 1-2 days. Return to ER if condition worsens. Referrals: Nonstaff,Physician [Primary Care Provider] - 1-2 days Jose Alberto Bonds MD [STAFF PHYSICIAN] - 1-2 days
[2019-02-12 18:37] VITALS: BP 119/75
[2019-02-12] MEDS ORDERED: PHENAZOPYRIDINE 200 MG TAB PO STA (19:02)
[2019-02-12 19:12] LABS: Appearance,Urine Clear (Clear); Bilirubin,Urine Negative (Negative); Blood,Urine Negative (Negative); Color,Urine Light Yellow; Glucose,Urine (UA) Negative (Negative); Ketones,Urine Negative (Negative); Leukocyte Esterase,Urine Negative (Negative); Nitrite,Urine Negative (Negative); Protein,Urine Negative (Negative); Specific Gravity,Urine 1.007 (1.001-1.035); Urobilinogen,Urine <2.0 mg/dL (<2.0)
[2019-02-12] MEDS ORDERED: SODIUM CHLORIDE 0.9% 1,000 ML IV STA (19:17)
[2019-02-12] MEDS ORDERED: MORPHINE SULFATE 4 MG/ML SYRINGE IV STA ×2 (19:25→21:40)
[2019-02-12 19:43] LABS: Basophils % (A) 0 %; Eosinophils # (A) 0.3 k/uL (0-0.7); Eosinophils % (A) 3 %; HCT 44.9 % (34.0-46.0); HGB 14.8 gm/dL (11.4-16.0); Lymphocytes # (A) 1.9 k/uL (1.0-4.8); Lymphocytes % (A) 24 %; MCH 32.9 pg (25.0-35.0); MCV 99.7 fL (80.0-100.0); Mean Platelet Volume 6.9; Monocytes # (A) 0.4 k/uL (0-1.0); Monocytes % (A) 5 %; Neutrophils # (A) 5.1 k/uL (1.3-7.7); Neutrophils % (A) 66 %; Platelet Count 218 k/uL (150-450); RBC 4.51 m/uL (3.80-5.40); RDW 13.7 % (11.5-15.5); WBC 7.7 k/uL (3.8-10.6)
[2019-02-12 19:57] LABS: ALT 17 U/L (9-52); AST 17 U/L (14-36); Alkaline Phosphatase 94 U/L (38-126); Anion Gap 7 mmol/L; Blood Urea Nitrogen 8 mg/dL (7-17); Calcium 9.2 mg/dL (8.4-10.2); Carbon Dioxide 27 mmol/L (22-30); Chloride 108 mmol/L (98-107); Glucose 107 mg/dL (74-99); Magnesium 1.9 mg/dL (1.6-2.3); Potassium 3.5 mmol/L (3.5-5.1); Sodium 142 mmol/L (137-145); Total Bilirubin 0.5 mg/dL (0.2-1.3); Total Protein 6.7 g/dL (6.3-8.2)
--- NOTE | 2019-02-12 20:43 | CT ---
EXAMINATION TYPE: CT abdomen pelvis w con DATE OF EXAM: 02/12/2019 COMPARISON: 09/13/2018 HISTORY: 58-year-old female Bladder pain. History of interstitial cystitis. TECHNIQUE: Contiguous axial scanning of the abdomen and pelvis following administration of 100 ml Iso artis 300 IV contrast. Delayed images through the kidneys and coronal/sagittal reconstructions perform ed. CT DLP: 964.5 mGycm Automated exposure control for dose reduction was used. FINDINGS: Heart normal size without pericardial effusion. Dependent atelectasis in the underlying lower lungs w ithout pleural effusion. Stable couple subcentimeter hypodensities right liver lobe [address] characterization, suggesting cysts. Portal venous system is patent. No biliary ductal dilatation. Adrenal glands, kidneys, spleen, and pancreas appear within normal limits. There is a phlebolith sam cent to the mid right ureter. Prominent fluid-filled small bowel loops in the right midabdomen. No dilated small bowel, free fluid, or free air. Appendix not clearly identified. Some with stool within the cecum. No significant stool burden. No pericolonic inflammatory change. No mesenteric or retroperitoneal lymphadenopathy. Bladder underdistended but shows mild circumferential wall thickening. Uterus surgically absent. Neit her ovary clearly identified. Pelvic fluid was. No abnormal fluid collection in the pelvis or pelvic lymphadenopathy. Bones: Mild degenerative changes of the hips. Chronic appearing posterior and interbody lumbosacral f usion changes from L4 through S1 levels. Advanced degenerative disc disease above the fusion at L3-L4 . Similar osteolysis about the fixation hardware especially on the right and L4. Stability suggests a nonaggressive etiology. IMPRESSION: 1. BLADDER INCOMPLETELY DISTENDED. THERE IS MILD WALL THICKENING THAT COULD BE CHRONIC IN THIS PATIEN T OR COULD REPRESENT CYSTITIS. 2. SOME PROMINENT FLUID-FILLED SMALL BOWEL LOOPS IN THE RIGHT MIDABDOMEN AND LIQUID STOOL IN THE CECU M. CORRELATE FOR A REGIONAL ILEUS OR ENTERITIS.
[2019-02-12 21:37] VITALS: PULSE 61; RESP 15; TEMP 97.7
== END 2019-02-12 21:35 | disposition home or self-care (01) ==
LOC: EC 17:44
DX: R10.30 Lower abdominal pain, unspecified (principal); R35.0 Frequency of micturition; R30.0 Dysuria; I25.10 Atherosclerotic heart disease of native coronary artery without angina pectoris; I25.2 Old myocardial infarction; E07.9 Disorder of thyroid, unspecified; F41.9 Anxiety disorder, unspecified; F17.200 Nicotine dependence, unspecified, uncomplicated; Z87.448 Personal history of other diseases of urinary system; Z95.5 Presence of coronary angioplasty implant and graft; Z90.710 Acquired absence of both cervix and uterus; Z79.02 Long term (current) use of antithrombotics/antiplatelets; Z79.890 Hormone replacement therapy; Z79.891 Long term (current) use of opiate analgesic; Z79.899 Other long term (current) drug therapy; Z88.1 Allergy status to other antibiotic agents; Z88.0 Allergy status to penicillin; Z88.6 Allergy status to analgesic agent; Z88.5 Allergy status to narcotic agent
CPT/HCPCS: 36415; 80053; 83605; 83735; 85025; 81003; 74177; 99284; 96374; 96376; 96361; J2270; Q9967

== ENCOUNTER 2019-05-06 00:35 | Emergency (ER) | payer OTHER ==
[2019-05-06 00:46] VITALS: PULSE 74; RESP 18; TEMP 98.4
[2019-05-06] MEDS ORDERED: ORPHENADRINE 30 MG/ML 2 ML VIAL IM STA (01:07)
--- NOTE | 2019-05-06 01:16 | ED ---
General Adult HPI - General Chief complaint: Extremity Problem,Nontraumatic Stated complaint: Leg Cramps Time Seen by Provider: 05/06/19 00:38 Source: EMS Mode of arrival: EMS Limitations: no limitations - History of Present Illness Initial comments: 's patient is a 59-year-old woman who presents to be evaluated for pain to her right shoulder and her low back which came on after a fall. The patient states she had been watering garden Thursday when she lost her balance and fell landing on her right side. She states that she injured her low back and right shoulder. She states that over the course of today the pain has worsened such that she is not able to move without having significant pain. The patient does note she has history of previous cervical as well as lumbar fusion. She states that the low back pain is radiating to her right leg area she indicates sciatic distribution. She has not had loss of bladder or bowel function. No saddle anesthesia. -: days(s) Location: right, upper extremity, lower extremity Radiation: non-radiation Quality: aching Consistency: constant Improves with: none Worsens with: movement Associated Symptoms: denies other symptoms - Related Data Home Medications Medication Instructions Recorded Confirmed ALPRAZolam [Xanax] 0.5 mg PO BID PRN 02/18/14 09/13/18 Clopidogrel [Plavix] 75 mg PO DAILY 02/18/14 09/13/18 Vilazodone HCl [Viibryd] 40 mg PO DAILY 02/18/14 09/13/18 Amitriptyline HCl [Elavil] 25 mg PO HS 04/06/18 09/13/18 Estradiol [Estrace] 1 mg PO DAILY 04/06/18 09/13/18 Levothyroxine Sodium [Synthroid] 100 mcg PO DAILY 04/06/18 09/13/18 OXcarbazepine [Trileptal] 300 mg PO QAM 04/06/18 09/13/18 OXcarbazepine [Trileptal] 600 mg PO HS 04/06/18 09/13/18 Omeprazole [PriLOSEC] 20 mg PO DAILY 04/06/18 09/13/18 oxyCODONE-APAP 10-325MG [Percocet 1 tab PO TID 04/06/18 09/13/18 10-325 mg] Isosorbide Mononitrate ER [Imdur] 60 mg PO DAILY 09/13/18 09/13/18 Lisinopril [Zestril] 20 mg PO HS 09/13/18 09/13/18 Nitroglycerin Sl Tabs [Nitrostat] 0.4 mg SUBLINGUAL Q5M PRN 09/13/18 09/13/18 Pregabalin [Lyrica] 150 mg PO TID 09/13/18 09/13/18 QUEtiapine FUMARATE [Seroquel Xr] 300 mg PO HS 09/13/18 09/13/18 amLODIPine [Norvasc] 5 mg PO HS 09/13/18 09/13/18 Previous Rx's Medication Instructions Recorded predniSONE 60 mg PO DAILY #30 tab 05/06/19 Allergies Allergy/AdvReac Type Severity Reaction Status Date / Time ciprofloxacin [From Cipro] Allergy Anaphylaxis Verified 05/06/19 00:42 Penicillins Allergy Swelling Verified 05/06/19 00:42 vancomycin Allergy Dyspnea Verified 05/06/19 00:42 ketorolac tromethamine AdvReac Itching Verified 05/06/19 00:42 [From Toradol] NSAIDS (Non-Steroidal AdvReac STOMACH Verified 05/06/19 00:42 Anti-Inflamma ULCER Review of Systems ROS Statement: Those systems with pertinent positive or pertinent negative responses have been documented in the HPI. ROS Other: All systems not noted in ROS Statement are negative. Constitutional: Denies: fever, chills Respiratory: Denies: cough, dyspnea Cardiovascular: Denies: chest pain, palpitations, syncope Gastrointestinal: Denies: abdominal pain, vomiting, diarrhea, constipation Genitourinary: Denies: dysuria, frequency, hematuria Musculoskeletal: Reports: as per HPI, back pain, arthralgia Skin: Denies: rash Neurological: Denies: headache, weakness, numbness, paresthesias Past Medical History Past Medical History: Coronary Artery Disease (CAD), Chest Pain / Angina, Fibromyalgia, Myocardial Infarction ([place]), Thyroid Disorder Additional Past Medical History / Comment(s): interstitial cystitis; Back Pain Last Myocardial Infarction Date:: 2015 History of Any Multi-Drug Resistant Organisms: None Reported Past Surgical History: Back Surgery, Bladder Surgery, Breast Surgery, Heart Catheterization With Stent, Hysterectomy Additional Past Surgical History / Comment(s): bladder stimulator, neck surgery, heart cath with stents in 2013 and 2016 Past Anesthesia/Blood Transfusion Reactions: No Reported Reaction Date of Last Stent Placement:: 2016 Past Psychological History: Anxiety Smoking Status: Current every day smoker Past Alcohol Use History: None Reported Past Drug Use History: Marijuana General Exam Limitations: no limitations General appearance: alert, in no apparent distress Head exam: Present: atraumatic, normocephalic Eye exam: Present: normal appearance. Absent: scleral icterus, conjunctival injection ENT exam: Present: mucous membranes dry Neck exam: Present: normal inspection, full ROM. Absent: tenderness Respiratory exam: Present: normal lung sounds bilaterally. Absent: respiratory distress, wheezes, rales, rhonchi, stridor Cardiovascular Exam: Present: regular rate, normal rhythm, normal heart sounds. Absent: systolic murmur, diastolic murmur, rubs, gallop GI/Abdominal exam: Present: soft. Absent: distended, tenderness, guarding, rebound, mass Extremities exam: Present: normal inspection, tenderness, normal capillary refill. Absent: pedal edema Back exam: Present: vertebral tenderness (Lumbar). Absent: CVA tenderness (R), CVA tenderness (L) Neurological exam: Present: alert Skin exam: Present: warm, dry, intact, normal color. Absent: rash Course Vital Signs 05/06/19 00:38 Temperature 98.4 F Pulse Rate 74 Respiratory 18 Rate Blood Pressure 142/83 O2 Sat by Pulse 95 Oximetry Disposition Clinical Impression: Lumbar radicular pain, Fall Disposition: HOME SELF-CARE Condition: Fair Instructions (If sedation given, give patient instructions): Lumbar Radiculopathy (ED) Prescriptions: predniSONE 60 mg PO DAILY #30 tab Is patient prescribed a controlled substance at d/c from ED?: No Referrals: Nonstaff,Physician [Primary Care Provider] - 1-2 days
--- NOTE | 2019-05-06 01:42 | XR ---
EXAM: XR Right Shoulder Complete, 2 or More Views CLINICAL HISTORY: ITS.REASON XR Reason: Pain TECHNIQUE: Two or more views of the right shoulder. COMPARISON: No relevant prior studies available. Impression: Bones/joints: No acute fracture. No dislocation. Mild degenerative changes at the acromioclavicular joint and glenohumeral joint. There is heterotopic ossification within the medial humeral head, possibly from prior injury. 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 Soft tissues: Unremarkable.
--- NOTE | 2019-05-06 01:48 | XR ---
EXAM: XR Lumbar Spine, 2 or 3 Views CLINICAL HISTORY: ITS.REASON XR Reason: Pain TECHNIQUE: Frontal and lateral views of the lumbar spine. COMPARISON: CT abdomen 02/12/19 FINDINGS: Vertebrae: Postsurgical changes including L4-S1 fusion. Hardware is intact.. No acute fracture. Normal alignment. 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 Soft tissues: Unremarkable. IMPRESSION: No acute findings. 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
[2019-05-06] MEDS ORDERED: MORPHINE SULFATE 4 MG/ML SYRINGE IV STA ×2 (02:03→03:00)
[2019-05-06] MEDS ORDERED: methylPREDNISolone SOD SUCCI 125 MG/2 ML VIAL IV STA (03:00)
[2019-05-06 04:09] VITALS: BP 115/64
== END 2019-05-06 04:10 | disposition home or self-care (01) ==
LOC: EC 00:35
DX: M54.16 Radiculopathy, lumbar region (principal); M48.061 Spinal stenosis, lumbar region without neurogenic claudication; I25.119 Atherosclerotic heart disease of native coronary artery with unspecified angina pectoris; I25.2 Old myocardial infarction; F41.9 Anxiety disorder, unspecified; E07.9 Disorder of thyroid, unspecified; F17.200 Nicotine dependence, unspecified, uncomplicated; Z79.02 Long term (current) use of antithrombotics/antiplatelets; Z79.890 Hormone replacement therapy; Z79.899 Other long term (current) drug therapy; Z88.0 Allergy status to penicillin; Z88.1 Allergy status to other antibiotic agents; Z88.6 Allergy status to analgesic agent; Z95.5 Presence of coronary angioplasty implant and graft; W19.XXXA Unspecified fall, initial encounter
CPT/HCPCS: 99284; 96374; 96375; 96376; 96372; 72100; 73030; J2270; J2360; J2930

== ENCOUNTER 2019-10-10 19:49 | Emergency (ER) | payer OTHER ==
[2019-10-10 19:59] VITALS: BP 168/100; PULSE 74; RESP 16; TEMP 99.2
[2019-10-10] MEDS ORDERED: KETOROLAC 30 MG/ML 1 ML VIAL IM STA (20:12)
--- NOTE | 2019-10-10 20:16 | ED ---
General Adult HPI - General Chief complaint: Extremity Injury, Lower Stated complaint: Hip Pain Time Seen by Provider: 10/10/19 20:04 Source: patient, RN notes reviewed Mode of arrival: ambulatory Limitations: no limitations - History of Present Illness Initial comments: 59-year-old female with a complicated past medical history including fibromyalgia, back pain presents to the emergency department for a chief complaint of right hip pain times one week. Patient states she has had pain on and off for quite some time however about a week ago she was walking into work when she slipped and fell on her right hip and back. States that since that time she has had worsening back and right hip pain. States it radiates into her right groin. States she is able to stand for 8 hours and walk on the hip. However when she turns certain ways she has severe pain in the right hip. Denies fevers or chills. States that movement makes the pain worse. Denies any numbness or tingling of the saddle area, denies any bladder or bowel changes.Patient has no other complaints at this time including shortness of breath, chest pain, abdominal pain, nausea or vomiting, headache, or visual changes. - Related Data Home Medications Medication Instructions Recorded Confirmed ALPRAZolam [Xanax] 0.5 mg PO BID PRN 02/18/14 09/13/18 Clopidogrel [Plavix] 75 mg PO DAILY 02/18/14 09/13/18 Vilazodone HCl [Viibryd] 40 mg PO DAILY 02/18/14 09/13/18 Amitriptyline HCl [Elavil] 25 mg PO HS 04/06/18 09/13/18 Estradiol [Estrace] 1 mg PO DAILY 04/06/18 09/13/18 Levothyroxine Sodium [Synthroid] 100 mcg PO DAILY 04/06/18 09/13/18 OXcarbazepine [Trileptal] 300 mg PO QAM 04/06/18 09/13/18 OXcarbazepine [Trileptal] 600 mg PO HS 04/06/18 09/13/18 Omeprazole [PriLOSEC] 20 mg PO DAILY 04/06/18 09/13/18 oxyCODONE-APAP 10-325MG [Percocet 1 tab PO TID 04/06/18 09/13/18 10-325 mg] Isosorbide Mononitrate ER [Imdur] 60 mg PO DAILY 09/13/18 09/13/18 Lisinopril [Zestril] 20 mg PO HS 09/13/18 09/13/18 Nitroglycerin Sl Tabs [Nitrostat] 0.4 mg SUBLINGUAL Q5M PRN 09/13/18 09/13/18 Pregabalin [Lyrica] 150 mg PO TID 09/13/18 09/13/18 QUEtiapine FUMARATE [Seroquel Xr] 300 mg PO HS 09/13/18 09/13/18 amLODIPine [Norvasc] 5 mg PO HS 09/13/18 09/13/18 Previous Rx's Medication Instructions Recorded predniSONE 60 mg PO DAILY #30 tab 05/06/19 Allergies Allergy/AdvReac Type Severity Reaction Status Date / Time ciprofloxacin [From Cipro] Allergy Anaphylaxis Verified 10/10/19 19:58 Penicillins Allergy Swelling Verified 10/10/19 19:58 vancomycin Allergy Dyspnea Verified 10/10/19 19:58 ketorolac tromethamine AdvReac Itching Verified 10/10/19 19:58 [From Toradol] NSAIDS (Non-Steroidal AdvReac STOMACH Verified 10/10/19 19:58 Anti-Inflamma ULCER Review of Systems ROS Statement: Those systems with pertinent positive or pertinent negative responses have been documented in the HPI. ROS Other: All systems not noted in ROS Statement are negative. Past Medical History Past Medical History: Coronary Artery Disease (CAD), Chest Pain / Angina, Fibromyalgia, Myocardial Infarction ([place]), Thyroid Disorder Additional Past Medical History / Comment(s): interstitial cystitis; Back Pain Last Myocardial Infarction Date:: 2015 History of Any Multi-Drug Resistant Organisms: None Reported Past Surgical History: Back Surgery, Bladder Surgery, Breast Surgery, Heart Catheterization With Stent, Hysterectomy Additional Past Surgical History / Comment(s): bladder stimulator, neck surgery, heart cath with stents in 2013 and 2015 Past Anesthesia/Blood Transfusion Reactions: No Reported Reaction Date of Last Stent Placement:: 2015 Past Psychological History: Anxiety, Bipolar, Depression Smoking Status: Current every day smoker Past Alcohol Use History: None Reported Past Drug Use History: Marijuana General Exam Limitations: no limitations General appearance: alert, in no apparent distress Head exam: Present: atraumatic, normocephalic, normal inspection Eye exam: Present: normal appearance, PERRL, EOMI. Absent: scleral icterus, conjunctival injection, periorbital swelling ENT exam: Present: normal exam, mucous membranes moist Neck exam: Present: normal inspection, full ROM. Absent: tenderness, meningismus, lymphadenopathy Respiratory exam: Present: normal lung sounds bilaterally. Absent: respiratory distress, wheezes, rales, rhonchi, stridor Cardiovascular Exam: Present: regular rate, normal rhythm, normal heart sounds. Absent: systolic murmur, diastolic murmur, rubs, gallop, clicks Extremities exam: Present: normal capillary refill (Capillary refill less than 2 seconds, DP pulse 2+ in the right lower extremity), other (Sensation intact in the right lower extremity). Absent: full ROM (Patient has full flexion of the right hip however external rotation causes pain), tenderness (No significant tenderness noted to the right hip.) Back exam: Present: vertebral tenderness (Mild lumbar spine tenderness generalized in nature, no contusions or ecchymosis) Neurological exam: Present: alert, normal gait (Patient ambulatory without difficulty) Course Vital Signs 10/10/19 19:56 Temperature 99.2 F Pulse Rate 74 Respiratory 16 Rate Blood Pressure 168/100 O2 Sat by Pulse 97 Oximetry Medical Decision Making - Medical Decision Making X-ray shows no abnormality of the right hip or pelvis. X-ray of the lumbar spine shows a previous surgery however no acute bony abnormality or change compared old exam. Patient given Toradol which did help with her pain. As discussed previously neurovascular status is intact in the right lower extremity. Patient is a meal tray without any difficulty. In fact she left her phone in the waiting room and ambulate her back and forth several times looking for it without limping. At this time patient discharged home to follow up with primary care. I recommended she take anti-inflammatories and return here for any worsening symptoms. Disposition Clinical Impression: Hip pain, right Disposition: HOME SELF-CARE Condition: Good Instructions (If sedation given, give patient instructions): Hip Pain (ED) Additional Instructions: Please continue to take anti-inflammatories for pain. Please follow-up with primary care in 1-2 days. Given any worsening symptoms return here to the emergency department. Is patient prescribed a controlled substance at d/c from ED?: No Referrals: Nonstaff,Physician [Primary Care Provider] - 1-2 days Time of Disposition: 20:41
--- NOTE | 2019-10-10 20:34 | XR ---
EXAMINATION TYPE: XR Hip RT and AP Pelvis DATE OF EXAM: 10/10/2019 COMPARISON: NONE HISTORY: Hip pain back pain TECHNIQUE: 3 views FINDINGS: Pelvic ring is intact. Proximal right femur and hip joint are intact. There is no sign of h ip dysplasia. There is neural stimulator over the right iliac bone. There is lower lumbar spine surge ry noted. Sacroiliac joints are intact. IMPRESSION: No acute abnormality of the pelvis and right hip.
--- NOTE | 2019-10-10 20:39 | XR ---
EXAMINATION TYPE: XR lumbar spine 2 or 3V DATE OF EXAM: 10/10/2019 COMPARISON: May 06, 2019 HISTORY: Back pain. Injury. TECHNIQUE: 3 views FINDINGS: Vertebra have fairly normal alignment. There is old posterior fusion surgery from L4 to S1. There is disc prosthesis at L5-S1. There is narrowing of L3-4 disc space. There is spurring of the e ndplates. There is no compression fracture. Sacroiliac joints appear intact. There is laminectomy in the lower lumbar spine. IMPRESSION: Previous surgery. No acute bony abnormality. No change compared to old exam.
== END 2019-10-10 20:53 | disposition home or self-care (01) ==
LOC: EC 19:49
DX: M25.551 Pain in right hip (principal); M54.9 Dorsalgia, unspecified; I25.119 Atherosclerotic heart disease of native coronary artery with unspecified angina pectoris; I25.2 Old myocardial infarction; F41.9 Anxiety disorder, unspecified; F31.9 Bipolar disorder, unspecified; F17.200 Nicotine dependence, unspecified, uncomplicated; Z79.02 Long term (current) use of antithrombotics/antiplatelets; Z79.890 Hormone replacement therapy; Z79.899 Other long term (current) drug therapy; Z88.0 Allergy status to penicillin; Z88.1 Allergy status to other antibiotic agents; Z88.5 Allergy status to narcotic agent; Z88.6 Allergy status to analgesic agent; Z95.5 Presence of coronary angioplasty implant and graft; W01.0XXA Fall on same level from slipping, tripping and stumbling without subsequent striking against object, initial encounter; Y93.01 Activity, walking, marching and hiking
CPT/HCPCS: 72100; 73502; 99283; 96372; J1885

== ENCOUNTER 2020-03-31 13:19 | Emergency (ER) | payer OTHER ==
[2020-03-31 13:29] VITALS: BP 127/74; PULSE 72; RESP 18; TEMP 98.7
[2020-03-31] MEDS ORDERED: KETOROLAC 30 MG/ML 1 ML VIAL IM STA (14:19)
--- NOTE | 2020-03-31 14:47 | XR ---
EXAMINATION TYPE: XR ankle complete RT DATE OF EXAM: 03/31/2020 COMPARISON: 01/01/2015 HISTORY: Twisted ankle. Pain. TECHNIQUE: 3 views FINDINGS: There is plantar calcaneal spurring. Ankle mortise is anatomic. There are 2 screws in the d istal first metatarsal. IMPRESSION: Calcaneal spurring. No fracture seen. No significant change.
--- NOTE | 2020-03-31 14:50 | XR ---
EXAMINATION TYPE: XR foot complete RT DATE OF EXAM: 03/31/2020 COMPARISON: 01/01/2015 HISTORY: Pain TECHNIQUE: 3 views FINDINGS: There is narrowing and spurring at the first MP joint. Metatarsals appear intact. I see no fracture nor dislocation. There is moderate plantar calcaneal spurring. IMPRESSION: No acute abnormality of the right foot. No change compared to old exam.
--- NOTE | 2020-03-31 14:58 | ED ---
Lower Extremity Injury HPI - General Chief Complaint: Extremity Injury, Lower Stated Complaint: Right Foot Injury Time Seen by Provider: 03/31/20 13:32 Source: patient Mode of arrival: ambulatory Limitations: no limitations - History of Present Illness Initial Comments: 59-year-old female patient presents to the emergency department today for evaluation of right ankle and foot pain after a twisting injury. Patient states that she was walking in a long skirt and sandals when she tripped over the scooter and twisted her foot. Pacer she's been having pain to the ankle and the top of the foot since. States she does have history of fracture to the foot with subsequent surgery. She denies any numbness or tingling. Denies any difficulty with range of motion. She denies falling, hitting her head, sustaining other injuries. States that she did take Percocet at home which did not seem to help. Patient denies any headache, neck pain, back pain, chest pain, shortness of breath, dizziness, weakness, abdominal pain, nausea, vomiting, or difficulties with bowel movements or urination. - Related Data Home Medications Medication Instructions Recorded Confirmed ALPRAZolam [Xanax] 0.5 mg PO BID PRN 02/18/14 09/13/18 Clopidogrel [Plavix] 75 mg PO DAILY 02/18/14 09/13/18 Vilazodone HCl [Viibryd] 40 mg PO DAILY 02/18/14 09/13/18 Amitriptyline HCl [Elavil] 25 mg PO HS 04/06/18 09/13/18 Estradiol [Estrace] 1 mg PO DAILY 04/06/18 09/13/18 Levothyroxine Sodium [Synthroid] 100 mcg PO DAILY 04/06/18 09/13/18 OXcarbazepine [Trileptal] 300 mg PO QAM 04/06/18 09/13/18 OXcarbazepine [Trileptal] 600 mg PO HS 04/06/18 09/13/18 Omeprazole [PriLOSEC] 20 mg PO DAILY 04/06/18 09/13/18 oxyCODONE-APAP 10-325MG [Percocet 1 tab PO TID 04/06/18 09/13/18 10-325 mg] Isosorbide Mononitrate ER [Imdur] 60 mg PO DAILY 09/13/18 09/13/18 Lisinopril [Zestril] 20 mg PO HS 09/13/18 09/13/18 Nitroglycerin Sl Tabs [Nitrostat] 0.4 mg SUBLINGUAL Q5M PRN 09/13/18 09/13/18 Pregabalin [Lyrica] 150 mg PO TID 09/13/18 09/13/18 QUEtiapine FUMARATE [Seroquel Xr] 300 mg PO HS 09/13/18 09/13/18 amLODIPine [Norvasc] 5 mg PO HS 09/13/18 09/13/18 Previous Rx's Medication Instructions Recorded predniSONE 60 mg PO DAILY #30 tab 05/06/19 Allergies Allergy/AdvReac Type Severity Reaction Status Date / Time ciprofloxacin [From Cipro] Allergy Anaphylaxis Verified 03/31/20 13:29 Penicillins Allergy Swelling Verified 03/31/20 13:29 vancomycin Allergy Dyspnea Verified 03/31/20 13:29 ketorolac tromethamine AdvReac Itching Verified 03/31/20 13:29 [From Toradol] NSAIDS (Non-Steroidal AdvReac STOMACH Verified 03/31/20 13:29 Anti-Inflamma ULCER Review of Systems ROS Statement: Those systems with pertinent positive or pertinent negative responses have been documented in the HPI. ROS Other: All systems not noted in ROS Statement are negative. Past Medical History Past Medical History: Coronary Artery Disease (CAD), Chest Pain / Angina, Fibromyalgia, Myocardial Infarction ([place]), Osteoarthritis ([place]), Thyroid Disorder Additional Past Medical History / Comment(s): interstitial cystitis; Back Pain Last Myocardial Infarction Date:: 2015 History of Any Multi-Drug Resistant Organisms: None Reported Past Surgical History: Back Surgery, Bladder Surgery, Breast Surgery, Heart Catheterization With Stent, Hysterectomy Additional Past Surgical History / Comment(s): bladder stimulator, neck surgery, heart cath with stents in 2013 and 2016 Past Anesthesia/Blood Transfusion Reactions: No Reported Reaction Date of Last Stent Placement:: 2015 Past Psychological History: Anxiety, Bipolar, Depression Smoking Status: Current every day smoker Past Alcohol Use History: None Reported Past Drug Use History: Marijuana General Exam Limitations: no limitations General appearance: alert, in no apparent distress, other (Physical well- developed, well-nourished adult female patient in no acute distress. Vital signs upon presentation are temperature 98.7F, pulse 72, respirations 18, blood pressure 127/74, pulse ox 97% on room air.) Respiratory exam: Present: normal lung sounds bilaterally. Absent: respiratory distress, wheezes, rales, rhonchi, stridor Cardiovascular Exam: Present: regular rate, normal rhythm, normal heart sounds. Absent: systolic murmur, diastolic murmur, rubs, gallop, clicks Extremities exam: Present: normal inspection, full ROM, tenderness (Dorsal aspect of the right foot), normal capillary refill, other (There is mild soft tissue swelling over the medial malleolus. Skin to the right foot is pink, warm, dry. Cap refills less than 3 seconds. Pedal and posttibial pulses are 2+ and equal bilaterally.). Absent: pedal edema, joint swelling, calf tenderness Neurological exam: Present: alert, oriented X3, CN II-XII intact Psychiatric exam: Present: normal affect, normal mood Skin exam: Present: warm, dry, intact, normal color. Absent: rash Course Vital Signs 03/31/20 13:25 Temperature 98.7 F Pulse Rate 72 Respiratory 18 Rate Blood Pressure 127/74 O2 Sat by Pulse 97 Oximetry Medical Decision Making - Medical Decision Making 59-year-old female patient presents to the emergency department today for evaluation of right foot and ankle pain. Physical examination reveals mild soft tissue swelling around the medial malleolus. Neurovascular status is intact. X-rays of the foot and ankle are negative. Patient be placed in an Bernardo wrap and an ankle stirrup Aircast. She is instructed to continue her home medications. She is instructed to follow-up with her primary care physician for recheck in 1- 2 days. She is instructed to have repeat x-rays performed in 7-10 days if pain symptoms persist Return parameters were discussed in detail. She verbalizes understanding and agrees with this plan. - Radiology Data Radiology results: report reviewed, image reviewed 3 views of the right foot are obtained. Report was reviewed in its entirety. Impression by Dr. Meraz shows no acute abnormality of the right foot. No change compared to old exam 3 views of the right ankle are obtained. Report was reviewed in its entirety. Impression by Dr. Meraz shows calcaneal spurring. No fracture seen. No significant change. Disposition Clinical Impression: Right foot sprain, Right ankle sprain Disposition: HOME SELF-CARE Condition: Good Instructions (If sedation given, give patient instructions): Ankle Sprain (ED), Foot Sprain (ED) Additional Instructions: Use splint for comfort and support. Continue home pain medication. Follow up with your primary care physician for recheck in 1-2 days. Have repeat x-rays performed in 7-10 days if pain symptoms persist. Return to the emergency department immediately for any new, worsening, or concerning symptoms. Is patient prescribed a controlled substance at d/c from ED?: No Referrals: Nonstaff,Physician [Primary Care Provider] - 1-2 days Time of Disposition: 14:58
== END 2020-03-31 15:11 | disposition home or self-care (01) ==
LOC: EC 13:19
DX: S93.401A Sprain of unspecified ligament of right ankle, initial encounter (principal); S93.601A Unspecified sprain of right foot, initial encounter; I25.119 Atherosclerotic heart disease of native coronary artery with unspecified angina pectoris; I25.2 Old myocardial infarction; F41.9 Anxiety disorder, unspecified; F31.9 Bipolar disorder, unspecified; E07.9 Disorder of thyroid, unspecified; F17.200 Nicotine dependence, unspecified, uncomplicated; Z79.890 Hormone replacement therapy; Z79.899 Other long term (current) drug therapy; Z79.02 Long term (current) use of antithrombotics/antiplatelets; Z88.0 Allergy status to penicillin; Z88.1 Allergy status to other antibiotic agents; Z88.6 Allergy status to analgesic agent; Z95.5 Presence of coronary angioplasty implant and graft; X50.1XXA Overexertion from prolonged static or awkward postures, initial encounter; Y93.01 Activity, walking, marching and hiking
CPT/HCPCS: 73610; 73630; 99283; 29515; 96372; J1885

== ENCOUNTER 2020-06-15 16:17 | Emergency (ER) | payer OTHER ==
[2020-06-15 16:39] VITALS: BP 141/82; PULSE 76; RESP 18; TEMP 98.5
[2020-06-15] MEDS ORDERED: ORPHENADRINE 30 MG/ML 2 ML VIAL IM STA (16:52)
[2020-06-15] MEDS ORDERED: KETOROLAC 15 MG/ML 1 ML VIAL IM STA (16:52)
--- NOTE | 2020-06-15 17:16 | XR ---
EXAMINATION TYPE: XR lumbar spine 2 or 3V DATE OF EXAM: 06/15/2020 COMPARISON: 10/10/2019 HISTORY: Hip pain back pain TECHNIQUE: 3 views FINDINGS: There are screws from previous posterior fusion surgery from L4 to S1. There is disc prosth esis at L5-S1. There is narrowing of the lumbar disc spaces from L3 to S1. There is no compression fr acture. There is laminectomy defect in the lower lumbar spine at L4 and L5. Sacroiliac joints are int act. IMPRESSION: Previous surgery. No fracture seen. No significant change compared to old exam.
--- NOTE | 2020-06-15 17:42 | ED ---
General Adult HPI - General Chief complaint: Back Pain/Injury Stated complaint: back pain Time Seen by Provider: 06/15/20 16:45 Source: patient, RN notes reviewed Mode of arrival: ambulatory Limitations: no limitations - History of Present Illness Initial comments: 60-year-old female with a past medical history of interstitial cystitis, back pain presents to the emergency room for a chief complaint of back pain. Patient reports that she has had lower back pain since a fall 10 days ago. Reports that seems to be worsening. Reports that when she moves it spasms. States the pain is around her bladder stimulator as well. Patient denies any bladder or bowel changes. Denies any weakness of the lower extremities. Denies any fevers or chills.Patient has no other complaints at this time including shortness of breath, chest pain, abdominal pain, nausea or vomiting, headache, or visual changes. - Related Data Home Medications Medication Instructions Recorded Confirmed ALPRAZolam [Xanax] 0.5 mg PO BID PRN 02/18/14 09/13/18 Clopidogrel [Plavix] 75 mg PO DAILY 02/18/14 09/13/18 Vilazodone HCl [Viibryd] 40 mg PO DAILY 02/18/14 09/13/18 Amitriptyline HCl [Elavil] 25 mg PO HS 04/06/18 09/13/18 Levothyroxine Sodium [Synthroid] 100 mcg PO DAILY 04/06/18 09/13/18 OXcarbazepine [Trileptal] 300 mg PO QAM 04/06/18 09/13/18 OXcarbazepine [Trileptal] 600 mg PO HS 04/06/18 09/13/18 Omeprazole [PriLOSEC] 20 mg PO DAILY 04/06/18 09/13/18 estradioL [Estrace] 1 mg PO DAILY 04/06/18 09/13/18 oxyCODONE-APAP 10-325MG [Percocet 1 tab PO TID 04/06/18 09/13/18 10-325 mg] Isosorbide Mononitrate ER [Imdur] 60 mg PO DAILY 09/13/18 09/13/18 Nitroglycerin Sl Tabs [Nitrostat] 0.4 mg SUBLINGUAL Q5M PRN 09/13/18 09/13/18 Pregabalin [Lyrica] 150 mg PO TID 09/13/18 09/13/18 QUEtiapine FUMARATE [Seroquel Xr] 300 mg PO HS 09/13/18 09/13/18 amLODIPine [Norvasc] 5 mg PO HS 09/13/18 09/13/18 lisinopriL [Zestril] 20 mg PO HS 09/13/18 09/13/18 Previous Rx's Medication Instructions Recorded predniSONE 60 mg PO DAILY #30 tab 05/06/19 Allergies Allergy/AdvReac Type Severity Reaction Status Date / Time ciprofloxacin [From Cipro] Allergy Anaphylaxis Verified 06/15/20 16:39 Penicillins Allergy Swelling Verified 06/15/20 16:39 vancomycin Allergy Dyspnea Verified 06/15/20 16:39 ketorolac tromethamine AdvReac Itching Verified 06/15/20 16:39 [From Toradol] NSAIDS (Non-Steroidal AdvReac STOMACH Verified 06/15/20 16:39 Anti-Inflamma ULCER Review of Systems ROS Statement: Those systems with pertinent positive or pertinent negative responses have been documented in the HPI. ROS Other: All systems not noted in ROS Statement are negative. Past Medical History Past Medical History: Coronary Artery Disease (CAD), Chest Pain / Angina, Fibromyalgia, Myocardial Infarction ([place]), Osteoarthritis (OA), Thyroid Disorder Additional Past Medical History / Comment(s): interstitial cystitis; Back Pain Last Myocardial Infarction Date:: 2015 History of Any Multi-Drug Resistant Organisms: None Reported Past Surgical History: Back Surgery, Bladder Surgery, Breast Surgery, Heart Catheterization With Stent, Hysterectomy Additional Past Surgical History / Comment(s): bladder stimulator, neck surgery, heart cath with stents in 2013 and 2015 Past Anesthesia/Blood Transfusion Reactions: No Reported Reaction Date of Last Stent Placement:: 2015 Past Psychological History: Anxiety, Bipolar, Depression Past Alcohol Use History: None Reported Past Drug Use History: Marijuana General Exam Limitations: no limitations General appearance: alert, in no apparent distress Head exam: Present: atraumatic, normocephalic, normal inspection Eye exam: Present: normal appearance, PERRL, EOMI. Absent: scleral icterus, conjunctival injection, periorbital swelling ENT exam: Present: normal exam, mucous membranes moist Neck exam: Present: normal inspection, full ROM. Absent: tenderness, meningismus, lymphadenopathy Respiratory exam: Present: normal lung sounds bilaterally. Absent: respiratory distress, wheezes, rales, rhonchi, stridor Cardiovascular Exam: Present: regular rate, normal rhythm, normal heart sounds. Absent: systolic murmur, diastolic murmur, rubs, gallop, clicks GI/Abdominal exam: Present: soft, normal bowel sounds. Absent: distended, tenderness, guarding, rebound, rigid Back exam: Present: paraspinal tenderness (Bilateral paraspinal tenderness), vertebral tenderness (Mild generalized lumbar vertebral tenderness). Absent: CVA tenderness (R), CVA tenderness (L) Neurological exam: Present: normal gait (Patient is ambulatory.) Course Vital Signs 06/15/20 16:35 Temperature 98.5 F Pulse Rate 76 Respiratory 18 Rate Blood Pressure 141/82 O2 Sat by Pulse 97 Oximetry Medical Decision Making - Medical Decision Making HPI was obtained. No red flag symptoms. No fevers. No bladder or bowel changes, no saddle anesthesia. No weakness of the lower extremity. Patient ambulatory. DP pulses 2+ bilaterally. X-ray of the lumbar spine shows a previous surgery without fracture seen. No significant change from prior. Patient's pain is consistent with an acute on chronic exacerbation of back pain. Patient was given pain medication which did help with her pain. She will follow-up with her doctor. Discussed reasons to return and she is agreeable to this. Disposition Clinical Impression: Mechanical back pain Disposition: HOME SELF-CARE Condition: Good Instructions (If sedation given, give patient instructions): Acute Low Back Pain (ED) Additional Instructions: Please follow-up with your doctor for back pain. If you develop any worsening symptoms such as weakness of the lower extremities, bladder or bowel changes, fevers, or any other worsening symptoms return to the emergency room. Is patient prescribed a controlled substance at d/c from ED?: No Referrals: Nonstaff,Physician [Primary Care Provider] - 1-2 days Time of Disposition: 17:41
[2020-06-15] MEDS ORDERED: MORPHINE SULFATE 4 MG/ML SYRINGE IM STA (18:00)
== END 2020-06-15 18:07 | disposition home or self-care (01) ==
LOC: EC 16:17
DX: M54.5 Low back pain (principal); F41.9 Anxiety disorder, unspecified; F31.9 Bipolar disorder, unspecified; I25.119 Atherosclerotic heart disease of native coronary artery with unspecified angina pectoris; I25.2 Old myocardial infarction; M19.90 Unspecified osteoarthritis, unspecified site; E07.9 Disorder of thyroid, unspecified; M79.7 Fibromyalgia; Z79.02 Long term (current) use of antithrombotics/antiplatelets; Z79.82 Long term (current) use of aspirin; Z79.890 Hormone replacement therapy; Z79.899 Other long term (current) drug therapy; Z95.5 Presence of coronary angioplasty implant and graft; Z88.0 Allergy status to penicillin; Z88.1 Allergy status to other antibiotic agents; Z88.6 Allergy status to analgesic agent
CPT/HCPCS: 72100; 99283; 96372 ×3; J2270; J2360; J1885

== ENCOUNTER 2020-06-19 20:13 | Emergency (ER) | payer OTHER ==
[2020-06-19] MEDS ORDERED: SODIUM CHLORIDE 0.9% 1,000 ML IV STA (20:40)
[2020-06-19] MEDS ORDERED: HYDROmorphone 0.5 MG/0.5 ML SYRINGE IVP STA ×2 (20:40→22:52)
[2020-06-19] MEDS ORDERED: SODIUM CHLORIDE 0.9% 500 ML 500 ML IV STA (20:40)
[2020-06-19] MEDS ORDERED: ONDANSETRON 4 MG/2 ML VIAL IVP STA (21:02)
[2020-06-19 21:03] LABS: Basophils # (A) 0.1 k/uL (0-0.2); Basophils % (A) 1 %; Eosinophils # (A) 0.3 k/uL (0-0.7); Eosinophils % (A) 3 %; HCT 48.5 % (34.0-46.0); HGB 15.5 gm/dL (11.4-16.0); Lymphocytes # (A) 1.6 k/uL (1.0-4.8); Lymphocytes % (A) 14 %; MCHC 32.1 g/dL (31.0-37.0); MCV 99.7 fL (80.0-100.0); Mean Platelet Volume 7.6; Monocytes # (A) 0.5 k/uL (0-1.0); Monocytes % (A) 4 %; Neutrophils % (A) 78 %; Platelet Count 222 k/uL (150-450); RBC 4.86 m/uL (3.80-5.40); RDW 13.6 % (11.5-15.5); WBC 11.5 k/uL (3.8-10.6)
[2020-06-19 21:15] LABS: ALT 15 U/L (4-34); AST 30 U/L (14-36); African American GFR (CKD) >90 (>60 ml/min/1.73 sqM); Albumin 4.4 g/dL (3.5-5.0); Alkaline Phosphatase 107 U/L (38-126); Amylase 32 U/L (30-110); Anion Gap 6 mmol/L; Blood Urea Nitrogen 9 mg/dL (7-17); Calcium 9.4 mg/dL (8.4-10.2); Carbon Dioxide 28 mmol/L (22-30); Chloride 106 mmol/L (98-107); Glucose 105 mg/dL (74-99); Non-African American GFR(CKD) 89 (>60 ml/min/1.73 sqM); Potassium 4.1 mmol/L (3.5-5.1); Sodium 140 mmol/L (137-145); Total Bilirubin 0.6 mg/dL (0.2-1.3); Total Protein 7.4 g/dL (6.3-8.2)
[2020-06-19 21:17] LABS: Appearance,Urine Clear (Clear); Bilirubin,Urine Negative (Negative); Blood,Urine Negative (Negative); Color,Urine Yellow; Glucose,Urine (UA) Negative (Negative); Ketones,Urine Negative (Negative); Leukocyte Esterase,Urine Negative (Negative); Nitrite,Urine Negative (Negative); PH, Urine 6.5 (5.0-8.0); Protein,Urine Negative (Negative); Specific Gravity,Urine 1.013 (1.001-1.035); Urobilinogen,Urine <2.0 mg/dL (<2.0)
--- NOTE | 2020-06-19 21:35 | ED ---
Abdominal Pain HPI - General Chief Complaint: Abdominal Pain Stated Complaint: Abd Pain Time Seen by Provider: 06/19/20 20:30 Source: patient, RN notes reviewed Mode of arrival: ambulatory Limitations: no limitations - History of Present Illness Initial Comments: 60-year-old female presents emergency Department with chief complaint of severe abdominal pain. Patient states she seen responsibility 0 for back pain but states she had no abdominal pain this time. Patient states she is increase in pain today. Patient states that she felt constipated but did have a bowel movement no relief. Patient states that she feels very distended, severe pain. Patient denies any fevers or chills. Patient states that she's had prior appendectomy. Patient denies any history kidney stone. No chest pain or shortness breath. - Related Data Home Medications Medication Instructions Recorded Confirmed ALPRAZolam [Xanax] 0.5 mg PO BID PRN 02/18/14 09/13/18 Clopidogrel [Plavix] 75 mg PO DAILY 02/18/14 09/13/18 Vilazodone HCl [Viibryd] 40 mg PO DAILY 02/18/14 09/13/18 Amitriptyline HCl [Elavil] 25 mg PO HS 04/06/18 09/13/18 Levothyroxine Sodium [Synthroid] 100 mcg PO DAILY 04/06/18 09/13/18 OXcarbazepine [Trileptal] 300 mg PO QAM 04/06/18 09/13/18 OXcarbazepine [Trileptal] 600 mg PO HS 04/06/18 09/13/18 Omeprazole [PriLOSEC] 20 mg PO DAILY 04/06/18 09/13/18 estradioL [Estrace] 1 mg PO DAILY 04/06/18 09/13/18 oxyCODONE-APAP 10-325MG [Percocet 1 tab PO TID 04/06/18 09/13/18 10-325 mg] Isosorbide Mononitrate ER [Imdur] 60 mg PO DAILY 09/13/18 09/13/18 Nitroglycerin Sl Tabs [Nitrostat] 0.4 mg SUBLINGUAL Q5M PRN 09/13/18 09/13/18 Pregabalin [Lyrica] 150 mg PO TID 09/13/18 09/13/18 QUEtiapine FUMARATE [Seroquel Xr] 300 mg PO HS 09/13/18 09/13/18 amLODIPine [Norvasc] 5 mg PO HS 09/13/18 09/13/18 lisinopriL [Zestril] 20 mg PO HS 09/13/18 09/13/18 Previous Rx's Medication Instructions Recorded predniSONE 60 mg PO DAILY #30 tab 05/06/19 Allergies Allergy/AdvReac Type Severity Reaction Status Date / Time ciprofloxacin [From Cipro] Allergy Anaphylaxis Verified 06/19/20 20:21 Penicillins Allergy Swelling Verified 06/19/20 20:21 vancomycin Allergy Dyspnea Verified 06/19/20 20:21 ketorolac tromethamine AdvReac Itching Verified 06/19/20 20:21 [From Toradol] NSAIDS (Non-Steroidal AdvReac STOMACH Verified 06/19/20 20:21 Anti-Inflamma ULCER Review of Systems ROS Statement: Those systems with pertinent positive or pertinent negative responses have been documented in the HPI. ROS Other: All systems not noted in ROS Statement are negative. Past Medical History Past Medical History: Coronary Artery Disease (CAD), Chest Pain / Angina, Fibromyalgia, Myocardial Infarction ([place]), Osteoarthritis (OA), Thyroid Disorder Additional Past Medical History / Comment(s): interstitial cystitis; Back Pain Last Myocardial Infarction Date:: 2015 History of Any Multi-Drug Resistant Organisms: None Reported Past Surgical History: Back Surgery, Bladder Surgery, Breast Surgery, Heart Catheterization With Stent, Hysterectomy Additional Past Surgical History / Comment(s): bladder stimulator, neck surgery, heart cath with stents in 2013 and 2015 Past Anesthesia/Blood Transfusion Reactions: No Reported Reaction Date of Last Stent Placement:: 2015 Past Psychological History: Anxiety, Bipolar, Depression Smoking Status: Current every day smoker Past Alcohol Use History: None Reported Past Drug Use History: Marijuana General Exam General appearance: alert, in no apparent distress Head exam: Present: atraumatic, normocephalic, normal inspection Eye exam: Present: normal appearance, PERRL, EOMI. Absent: scleral icterus, con junctival injection, periorbital swelling Neck exam: Present: normal inspection. Absent: tenderness, meningismus, lymphadenopathy Respiratory exam: Present: normal lung sounds bilaterally. Absent: respiratory distress, wheezes, rales, rhonchi, stridor Cardiovascular Exam: Present: regular rate, normal rhythm, normal heart sounds. Absent: systolic murmur, diastolic murmur, rubs, gallop, clicks GI/Abdominal exam: Present: soft, distended, tenderness (Adan diffuse), rigid, normal bowel sounds. Absent: guarding, rebound Back exam: Absent: CVA tenderness (R), CVA tenderness (L) Neurological exam: Present: alert, oriented X3 Skin exam: Present: warm, dry, intact, normal color. Absent: rash Course Vital Signs 06/19/20 06/19/20 20:17 22:00 Temperature 98.9 F Pulse Rate 73 70 Respiratory 18 18 Rate Blood Pressure 170/91 138/70 O2 Sat by Pulse 98 97 Oximetry Medical Decision Making - Medical Decision Making [place] CT and urinalysis were reviewed no significant findings. Patient is a large stool and gas may be causing her symptoms. Patient discharged with magnesium citrate. Patient will be follow-up with PCP and return for any worsening symptoms. Patient's vitals are stable patient agrees to plan. - Lab Data Result diagrams: 06/19/20 20:50 06/19/20 20:50 Lab Results 06/19/20 06/19/20 06/19/20 Range/Units 20:50 20:50 20:50 WBC 11.5 H (3.8-10.6) k/uL RBC 4.86 (3.80-5.40) m/uL Hgb 15.5 (11.4-16.0) gm/dL Hct 48.5 H (34.0-46.0) % MCV 99.7 (80.0-100.0) fL MCH 32.0 (25.0-35.0) pg MCHC 32.1 (31.0-37.0) g/dL RDW 13.6 (11.5-15.5) % Plt Count 222 (150-450) k/uL Neutrophils % 78 % Lymphocytes % 14 % Monocytes % 4 % Eosinophils % 3 % Basophils % 1 % Neutrophils # 9.0 H (1.3-7.7) k/uL Lymphocytes # 1.6 (1.0-4.8) k/uL Monocytes # 0.5 (0-1.0) k/uL Eosinophils # 0.3 (0-0.7) k/uL Basophils # 0.1 (0-0.2) k/uL Sodium 140 (137-145) mmol/L Potassium 4.1 (3.5-5.1) mmol/L Chloride 106 (98-107) mmol/L Carbon Dioxide 28 (22-30) mmol/L Anion Gap 6 mmol/L BUN 9 (7-17) mg/dL Creatinine 0.73 (0.52-1.04) mg/dL Est GFR (CKD-EPI)AfAm >90 (>60 ml/min/1.73 sqM) Est GFR (CKD-EPI)NonAf 89 (>60 ml/min/1.73 sqM) Glucose 105 H (74-99) mg/dL Plasma Lactic Acid Olu (0.7-2.0) mmol/L Calcium 9.4 (8.4-10.2) mg/dL Total Bilirubin 0.6 (0.2-1.3) mg/dL AST 30 (14-36) U/L ALT 15 (4-34) U/L Alkaline Phosphatase 107 (38-126) U/L Total Protein 7.4 (6.3-8.2) g/dL Albumin 4.4 (3.5-5.0) g/dL Amylase 32 (30-110) U/L Lipase 29 (23-300) U/L Urine Color Yellow Urine Appearance Clear (Clear) Urine pH 6.5 (5.0-8.0) Ur Specific Pitts 1.013 (1.001-1.035) Urine Protein Negative (Negative) Urine Glucose (UA) Negative (Negative) Urine Ketones Negative (Negative) Urine Blood Negative (Negative) Urine Nitrite Negative (Negative) Urine Bilirubin Negative (Negative) Urine Urobilinogen <2.0 (<2.0) mg/dL Ur Leukocyte Esterase Negative (Negative) 06/19/20 Range/Units 20:50 WBC (3.8-10.6) k/uL RBC (3.80-5.40) m/uL Hgb (11.4-16.0) gm/dL Hct (34.0-46.0) % MCV (80.0-100.0) fL MCH (25.0-35.0) pg MCHC (31.0-37.0) g/dL RDW (11.5-15.5) % Plt Count (150-450) k/uL Neutrophils % % Lymphocytes % % Monocytes % % Eosinophils % % Basophils % % Neutrophils # (1.3-7.7) k/uL Lymphocytes # (1.0-4.8) k/uL Monocytes # (0-1.0) k/uL Eosinophils # (0-0.7) k/uL Basophils # (0-0.2) k/uL Sodium (137-145) mmol/L Potassium (3.5-5.1) mmol/L Chloride (98-107) mmol/L Carbon Dioxide (22-30) mmol/L Anion Gap mmol/L BUN (7-17) mg/dL Creatinine (0.52-1.04) mg/dL Est GFR (CKD-EPI)AfAm (>60 ml/min/1.73 sqM) Est GFR (CKD-EPI)NonAf (>60 ml/min/1.73 sqM) Glucose (74-99) mg/dL Plasma Lactic Acid Olu 1.3 (0.7-2.0) mmol/L Calcium (8.4-10.2) mg/dL Total Bilirubin (0.2-1.3) mg/dL AST (14-36) U/L ALT (4-34) U/L Alkaline Phosphatase (38-126) U/L Total Protein (6.3-8.2) g/dL Albumin (3.5-5.0) g/dL Amylase (30-110) U/L Lipase (23-300) U/L Urine Color Urine Appearance (Clear) Urine pH (5.0-8.0) Ur Specific Pitts (1.001-1.035) Urine Protein (Negative) Urine Glucose (UA) (Negative) Urine Ketones (Negative) Urine Blood (Negative) Urine Nitrite (Negative) Urine Bilirubin (Negative) Urine Urobilinogen (<2.0) mg/dL Ur Leukocyte Esterase (Negative) Disposition Clinical Impression: Abdominal pain Disposition: HOME SELF-CARE Condition: Stable Instructions (If sedation given, give patient instructions): Abdominal Pain (ED) Additional Instructions: Please return to the Emergency Department if symptoms worsen or any other concerns. Is patient prescribed a controlled substance at d/c from ED?: No Referrals: Nonstaff,Physician [Primary Care Provider] - 1-2 days Time of Disposition: 22:53
--- NOTE | 2020-06-19 22:48 | CT ---
EXAMINATION TYPE: CT abdomen pelvis w con DATE OF EXAM: 06/19/2020 COMPARISON: 02/12/2019 HISTORY: abdominal/flank pain CT DLP: 986.3 mGycm Automated exposure control for dose reduction was used. CONTRAST: Performed with IV Contrast, patient injected with 100 mL of Isovue 300. There is minimal scarring and subsegmental atelectasis at the lung bases. There is no pleural effusio n. There is no pericardial effusion. Liver spleen stomach pancreas gallbladder appear intact. Bile du cts are not dilated. There is no adrenal mass. Kidneys show satisfactory contrast opacification. Ther e is no hydronephrosis. Delayed images show normal renal excretion. There is no retroperitoneal adeno festus. Bladder distends smoothly. There is no inguinal hernia. There is no free fluid in the pelvis. There is no mesenteric edema. There is no ascites or free air. There is no evidence of bowel obstruction. Appendix is not definitely seen. There is no sign of thick ened appendix. There is no mesenteric edema. There is no ascites or free air. There is no bowel obstruction. There i s hysterectomy. There is a few millimeter anterior subluxation of elbow 3 in relation to L4. There is disc space narrowing throughout the lumbar spine. There is no compression fracture. There is multile cain posterior fusion surgery from L4 to S1. I see no focal bone destruction. Bony pelvis is intact. IMPRESSION: Extensive lumbar spine posterior surgery. No fracture seen. No sign of acute abdomen and pelvis. I se e no adverse change compared to old exam.
[2020-06-19] MEDS ORDERED: MAGNESIUM CITRATE 296 ML BOTTLE PO ONE (22:52)
[2020-06-19 23:09] VITALS: BP 153/82; PULSE 58; RESP 16; TEMP 98
== END 2020-06-19 23:17 | disposition home or self-care (01) ==
LOC: EC 20:13
DX: R10.9 Unspecified abdominal pain (principal); I25.119 Atherosclerotic heart disease of native coronary artery with unspecified angina pectoris; I25.2 Old myocardial infarction; E07.9 Disorder of thyroid, unspecified; F41.9 Anxiety disorder, unspecified; F31.9 Bipolar disorder, unspecified; F17.200 Nicotine dependence, unspecified, uncomplicated; Z79.02 Long term (current) use of antithrombotics/antiplatelets; Z79.890 Hormone replacement therapy; Z79.899 Other long term (current) drug therapy; Z88.0 Allergy status to penicillin; Z88.1 Allergy status to other antibiotic agents; Z88.5 Allergy status to narcotic agent; Z88.6 Allergy status to analgesic agent; Z95.5 Presence of coronary angioplasty implant and graft
CPT/HCPCS: 36415; 80053; 82150; 83605; 83690; 85025; 81003; 74177; 99284; 96374; 96375; 96376; 96361; J2405; J1170; Q9967

== ENCOUNTER 2020-08-06 18:14 | Inpatient (IN) | payer OTHER ==
[2020-08-06] MEDS ORDERED: MORPHINE SULFATE 4 MG/ML SYRINGE IV STA (18:35)
--- NOTE | 2020-08-06 18:41 | ED ---
General Adult HPI - General Chief complaint: Neuro Symptoms/Deficit Stated complaint: Stroke Symptoms Time Seen by Provider: 08/06/20 18:22 Source: patient, EMS Mode of arrival: EMS Limitations: no limitations - History of Present Illness Initial comments: Dictation was produced using [employer] dictation software. please excuse any grammatical, word or spelling errors. This patient was cared for during a federal and state declared state of emergen cy secondary to Covid 19 Chief Complaint: 60-year-old female presents with strokelike symptoms History of Present Illness: 1-year-old female she has 3 days of what she believes are strokelike symptoms. Patient has been having difficulty walking. She did have slurred speech. States that she's been having this persistent leg for the last 3 days. She was with her family when they noticed that her speech and thought pattern seemed a little off. They told patient to call EMS to bring her to the emergency department for possible stroke. Patient has history of A. fib. She does not take any blood thinner medications. Patient has any headache. States she fell recently and has bilateral knee pain. She was requesting pain medications for that. She denies any recent head trauma The ROS documented in this emergency department record has been reviewed and confirmed by me. Those systems with pertinent positive or negative responses have been documented in the HPI. All other systems are other negative and/or noncontributory. PHYSICAL EXAM: General Impression: Alert and oriented x3, not in acute distress HEENT: Normocephalic atraumatic, extra-ocular movements intact, pupils equal and reactive to light bilaterally, mucous membranes moist. Cardiovascular: Heart regular rate and rhythm Chest: Able to complete full sentences, no retractions, no tachypnea Abdomen: abdomen soft, non-tender, non-distended, no organomegaly Musculoskeletal: Pulses present and equal in all extremities, no peripheral edema Motor: no focal deficits noted Neurological: CN II-XII grossly intact, no facial asymmetry, mildly dysarthric, no sensory deficit to light touch to the face or extremities. No extremity drift, no aphasia, gait ataxic Skin: Intact with no visualized rashes Psych: Normal affect and mood ED course: 60-year-old female presents with strokelike symptoms for the last 3 days.Patient is a symptomatically for 3 days. Patient not a TPA candidate. CT brain and CT angiogram of the head and neck was obtained showing no acute processes. Chest x-ray is unremarkable. Laboratory evaluation is obtained. Patient does have MCV 106.1. Coag panel is unremarkable metabolic panel is within acceptable limits. There is concern that patient is having thiamine deficiency. She is given thiamine. Patient be admitted she is also given aspirin. Neurology will consulted. Case was discussed with Niki Nichols was willing to [facility] - Related Data Home Medications Medication Instructions Recorded Confirmed ALPRAZolam [Xanax] 0.5 mg PO BID PRN 02/18/14 09/13/18 Clopidogrel [Plavix] 75 mg PO DAILY 02/18/14 09/13/18 Vilazodone HCl [Viibryd] 40 mg PO DAILY 02/18/14 09/13/18 Amitriptyline HCl [Elavil] 25 mg PO HS 04/06/18 09/13/18 Levothyroxine Sodium [Synthroid] 100 mcg PO DAILY 04/06/18 09/13/18 OXcarbazepine [Trileptal] 300 mg PO QAM 04/06/18 09/13/18 OXcarbazepine [Trileptal] 600 mg PO HS 04/06/18 09/13/18 Omeprazole [PriLOSEC] 20 mg PO DAILY 04/06/18 09/13/18 estradioL [Estrace] 1 mg PO DAILY 04/06/18 09/13/18 oxyCODONE-APAP 10-325MG [Percocet 1 tab PO TID 04/06/18 09/13/18 10-325 mg] Isosorbide Mononitrate ER [Imdur] 60 mg PO DAILY 09/13/18 09/13/18 Nitroglycerin Sl Tabs [Nitrostat] 0.4 mg SUBLINGUAL Q5M PRN 09/13/18 09/13/18 Pregabalin [Lyrica] 150 mg PO TID 09/13/18 09/13/18 QUEtiapine FUMARATE [Seroquel Xr] 300 mg PO HS 09/13/18 09/13/18 amLODIPine [Norvasc] 5 mg PO HS 09/13/18 09/13/18 lisinopriL [Zestril] 20 mg PO HS 09/13/18 09/13/18 Previous Rx's Medication Instructions Recorded predniSONE 60 mg PO DAILY #30 tab 05/06/19 Allergies Allergy/AdvReac Type Severity Reaction Status Date / Time ciprofloxacin [From Cipro] Allergy Anaphylaxis Verified 08/06/20 20:00 Penicillins Allergy Swelling Verified 08/06/20 20:00 vancomycin Allergy Dyspnea Verified 08/06/20 20:00 ketorolac tromethamine AdvReac Itching Verified 08/06/20 20:00 [From Toradol] NSAIDS (Non-Steroidal AdvReac STOMACH Verified 08/06/20 20:00 Anti-Inflamma ULCER Review of Systems ROS Statement: Those systems with pertinent positive or pertinent negative responses have been documented in the HPI. ROS Other: All systems not noted in ROS Statement are negative. Past Medical History Past Medical History: Coronary Artery Disease (CAD), Chest Pain / Angina, Fibromyalgia, Myocardial Infarction ([place]), Osteoarthritis (OA), Thyroid Disorder Additional Past Medical History / Comment(s): interstitial cystitis; Back Pain Last Myocardial Infarction Date:: 2015 History of Any Multi-Drug Resistant Organisms: None Reported Past Surgical History: Back Surgery, Bladder Surgery, Breast Surgery, Heart Catheterization With Stent, Hysterectomy Additional Past Surgical History / Comment(s): bladder stimulator, neck surgery, heart cath with stents in 2013 and 2015 Past Anesthesia/Blood Transfusion Reactions: No Reported Reaction Date of Last Stent Placement:: 2015 Past Psychological History: Anxiety, Bipolar, Depression Smoking Status: Current every day smoker Past Alcohol Use History: None Reported Past Drug Use History: Marijuana General Exam Limitations: no limitations Course Vital Signs 08/06/20 08/06/20 18:27 20:00 Temperature 98.1 F Pulse Rate 64 54 L Respiratory 12 12 Rate Blood Pressure 116/58 93/62 O2 Sat by Pulse 95 94 L Oximetry Medical Decision Making - Lab Data Result diagrams: 08/06/20 18:38 08/06/20 18:38 Lab Results 08/06/20 08/06/20 08/06/20 Range/Units 18:38 18:38 18:38 WBC 8.5 (3.8-10.6) k/uL RBC 4.32 (3.80-5.40) m/uL Hgb 14.2 (11.4-16.0) gm/dL Hct 45.9 (34.0-46.0) % MCV 106.1 H D (80.0-100.0) fL MCH 32.8 (25.0-35.0) pg MCHC 30.9 L (31.0-37.0) g/dL RDW 14.0 (11.5-15.5) % Plt Count 200 (150-450) k/uL Neutrophils % 65 % Lymphocytes % 24 % Monocytes % 5 % Eosinophils % 3 % Basophils % 0 % Neutrophils # 5.5 (1.3-7.7) k/uL Lymphocytes # 2.0 (1.0-4.8) k/uL Monocytes # 0.5 (0-1.0) k/uL Eosinophils # 0.3 (0-0.7) k/uL Basophils # 0.0 (0-0.2) k/uL Macrocytosis Moderate PT 10.4 (9.0-12.0) sec INR 1.0 (<1.2) APTT 26.4 (22.0-30.0) sec Sodium 142 (137-145) mmol/L Potassium 3.4 L (3.5-5.1) mmol/L Chloride 111 H (98-107) mmol/L Carbon Dioxide 27 (22-30) mmol/L Anion Gap 4 mmol/L BUN 13 (7-17) mg/dL Creatinine 0.70 (0.52-1.04) mg/dL Est GFR (CKD-EPI)AfAm >90 (>60 ml/min/1.73 sqM) Est GFR (CKD-EPI)NonAf >90 (>60 ml/min/1.73 sqM) Glucose 115 H (74-99) mg/dL Calcium 8.0 L (8.4-10.2) mg/dL Total Bilirubin 0.4 (0.2-1.3) mg/dL AST 20 (14-36) U/L ALT 11 (4-34) U/L Alkaline Phosphatase 74 (38-126) U/L Total Protein 6.0 L (6.3-8.2) g/dL Albumin 3.4 L (3.5-5.0) g/dL Disposition Clinical Impression: CVA (cerebral vascular accident) Disposition: ADMITTED IP TO THIS [facility] Condition: Fair Referrals: Nonstaff,Physician [Primary Care Provider] - 1-2 days Decision Time: 20:21
[2020-08-06 18:58] LABS: ALT 11 U/L (4-34); AST 20 U/L (14-36); African American GFR (CKD) >90 (>60 ml/min/1.73 sqM); Albumin 3.4 g/dL (3.5-5.0); Alkaline Phosphatase 74 U/L (38-126); Anion Gap 4 mmol/L; Blood Urea Nitrogen 13 mg/dL (7-17); Carbon Dioxide 27 mmol/L (22-30); Chloride 111 mmol/L (98-107); Glucose 115 mg/dL (74-99); Non-African American GFR(CKD) >90 (>60 ml/min/1.73 sqM); Partial Thromboplastin Time 26.4 sec (22.0-30.0); Potassium 3.4 mmol/L (3.5-5.1); Prothrombin Time 10.4 sec (9.0-12.0); Sodium 142 mmol/L (137-145); Total Bilirubin 0.4 mg/dL (0.2-1.3)
[2020-08-06 19:08] LABS: Basophils % (A) 0 %; Eosinophils # (A) 0.3 k/uL (0-0.7); Eosinophils % (A) 3 %; HCT 45.9 % (34.0-46.0); HGB 14.2 gm/dL (11.4-16.0); Lymphocytes % (A) 24 %; MCH 32.8 pg (25.0-35.0); MCHC 30.9 g/dL (31.0-37.0); Macrocytosis Moderate; Mean Platelet Volume 7.7; Monocytes # (A) 0.5 k/uL (0-1.0); Monocytes % (A) 5 %; Neutrophils # (A) 5.5 k/uL (1.3-7.7); Neutrophils % (A) 65 %; Platelet Count 200 k/uL (150-450); RBC 4.32 m/uL (3.80-5.40); WBC 8.5 k/uL (3.8-10.6)
[2020-08-06 19:17] LABS: MCV 106.1 fL (80.0-100.0)
[2020-08-06] MEDS ORDERED: THIAMINE 100 MG in SODIUM CHLORIDE 0.9% 50 ML IVPB STA (19:25)
--- NOTE | 2020-08-06 19:31 | CT ---
EXAMINATION TYPE: CT brain wo con DATE OF EXAM: 08/06/2020 COMPARISON: None HISTORY: left side facial droop slurred speech for 3 day [address] DLP: 1529.7 mGycm Automated exposure control for dose reduction was used. Helical imaging through the brain FINDINGS: There is no hemorrhage or hydrocephalus. Calvarium is intact. Paranasal sinuses and mastoid air cells are normal. Brain density is maintained. Cortical atrophy is mild. Cerebral vascular calcifications are noted. IMPRESSION: NO ACUTE ABNORMALITY IS EVIDENT.
--- NOTE | 2020-08-06 19:51 | CT ---
EXAMINATION TYPE: CT angio head neck DATE OF EXAM: 08/06/2020 HISTORY: left side facial droop slurred speech for 3 day to 1 week COMPARISON: CT brain same date CT DLP: 1529.7 mGycm. Automated Exposure Control for Dose Reduction was Utilized. TECHNIQUE: CTA scan of the neck is performed with IV Contrast, patient injected with 65 mL of Isovue 370, axial images are obtained, coronal and sagittal reformatted images are reviewed. Three-D recons tructed images are created on an independent workstation and reviewed. FINDINGS: Carotid/Vascular Structures: The left and right subclavian, innominate, left and right common carotid arteries are patent. Vertebral arteries are patent. There is no evident stenosis of the proximal int ernal carotid artery bilaterally by NASCET criteria, internal and external carotid arteries are paten t. Internal carotid arteries show tortuous course more so on the right. The anterior posterior circulation within the brain is patent, there is no evident aneurysm, embolus, or dissection. Other: Postop changes are noted the cervical spine, there are degenerative disc changes present. IMPRESSION: No significant abnormality is seen.
[2020-08-06] MEDS ORDERED: HYDROmorphone 0.5 MG/0.5 ML SYRINGE IVP STA (20:00)
--- NOTE | 2020-08-06 20:00 | XR ---
EXAMINATION TYPE: XR chest 1V portable DATE OF EXAM: 08/06/2020 COMPARISON: Prior chest x-ray dated 04/06/2018 HISTORY: Cerebrovascular accident, altered mental status TECHNIQUE: Single frontal view of the chest is obtained. FINDINGS: There is no focal air space opacity, pleural effusion, or pneumothorax seen. The cardiac silhouette size is within normal limits accounting for rotation. The osseous structures are intact, postop changes are noted in the cervical spine. IMPRESSION: No acute process.
[2020-08-06] MEDS ORDERED: ASPIRIN 325 MG TAB PO STA (20:14)
[2020-08-06] MEDS: PREGABALIN 50 MG CAP PO SCH (23:11)
[2020-08-06] MEDS: NICOTINE 14MG/24HR PATCH TRANSDERM SCH (23:11)
[2020-08-06] MEDS: QUEtiapine 100 MG TAB PO SCH (23:11)
[2020-08-06] MEDS: ALPRAZolam 1 MG TAB PO PRN (23:11)
[2020-08-06] MEDS: lisinopriL 20 MG TAB PO SCH (23:11)
[2020-08-06] MEDS: AMITRIPTYLINE HCL 25 MG TAB PO SCH (23:20)
[2020-08-07] MEDS: LEVOTHYROXINE 100 MCG TAB PO SCH (06:36)
[2020-08-07] MEDS: oxyCODONE-APAP 10-325MG 1 EACH TAB PO PRN (06:53)
[2020-08-07 08:12] LABS: Cholesterol 240 mg/dL (<200); HDL Cholesterol 49 mg/dL (40-60); LDL Cholesterol,Calculated 143 mg/dL (0-99); Triglycerides 240 mg/dL (<150)
[2020-08-07] MEDS: ISOSORBIDE MONONITRATE ER 30 MG TAB.ER.24H PO SCH (08:18)
[2020-08-07] MEDS: CLOPIDOGREL 75 MG TAB PO SCH (08:18)
[2020-08-07] MEDS: NICOTINE 14MG/24HR PATCH TRANSDERM SCH (08:18)
[2020-08-07] MEDS: PREGABALIN 50 MG CAP PO SCH ×2 (08:18→20:37)
[2020-08-07] MEDS: OXcarbazepine 150 MG TAB PO SCH ×2 (08:19→20:37)
[2020-08-07] MEDS: Vilazodone Hcl [Viibryd] 40 MG Tablet PO SCH (08:20)
[2020-08-07] MEDS: ALPRAZolam 1 MG TAB PO PRN ×2 (08:26→17:12)
--- NOTE | 2020-08-07 14:30 | P.CNNES ---
History of Present Illness Consult date: 08/07/20 Requesting physician: Ervin Xavier History of Present Illness: This is a 60-year-old right-handed woman with medical history of coronary artery diseases/p post stents, hypertension, dyslipidemia, hypothryoidsism, neurogenic bladder stimulator and tobacco use presented to the emergency department on 08/06/2020 for slurring of speech for past 2-3 days. Patient stated the last 2- 3 days her mother noticed that the patient was having slurring the speech. She noticed that he's having difficulty opening both eyes mostly left more than the right but the today she noticed that that was both eyes. And opening her eyes has been going on for past 5 days. She denies of any diplopia. She has been stumbling upon walk-in for last 2-3 weeks and had multiple episodes she said that when she was going down the stairs she missed a couple steps and that she does not know the reason how she missed a couple steps at. She didn't lose any consciousness. She's been feeling lightheaded mostly with standing up as well as feeling dizzy when standing up. She does have ringing of the ears as well as she feels like she is having hearing loss for the last couple months. She feels like she is slow to respond and the last couple weeks to months. She feels her left side is weaker compared to the right side for the last couple months as well. Patient stated that the she was told by her mom that that she was slurring her speech and that her left eye was drooping. The ED note they mentioned the patient has history of atrial fibrillation but she denies that she has atrial fibrillation. Of note there is a family history of Parkinson's disease. Patient resides with her brother. Patient smokes 1 pack a day for more than 30 years that. She smo kes marijuana because of the stress she is under. Denies alcohol use or illicit drug use. Patient stated that that the she had an old lower back surgery in 2016 and was done at outside facility ([facility]) as a result she said that she self-referred the peripheral neuropathy of the right lower extremity. Workup in the hospital consisted of: CT of the head is reported as no acute abnormality is noted. I personally reviewed the CT of head and I agree that there is no acute ischemia or subacute ischemia or hemorrhage. There is no any pertinent encephalomalacia that was appreciated. CT angiography of the head and neck was reported as no significant abnormality is seen. EKG is reported as sinus bradycardia. Ventricular rate of 51. Otherwise normal EKG. Review of Systems Review of system: The 12 point system was reviewed and apparent positive and negative per HPI. Past Medical History Past Medical History: Coronary Artery Disease (CAD), Chest Pain / Angina, Fibromyalgia, Myocardial Infarction ([place]), Osteoarthritis (OA), Thyroid Disorder Additional Past Medical History / Comment(s): interstitial cystitis; Back Pain Last Myocardial Infarction Date:: 2015 History of Any Multi-Drug Resistant Organisms: None Reported Past Surgical History: Back Surgery, Bladder Surgery, Breast Surgery, Heart Catheterization With Stent, Hysterectomy Additional Past Surgical History / Comment(s): bladder stimulator, neck surgery, heart cath with stents in 2013 and 2015 Past Anesthesia/Blood Transfusion Reactions: No Reported Reaction Date of Last Stent Placement:: 2015 Past Psychological History: Anxiety, Bipolar, Depression Smoking Status: Current every day smoker Past Alcohol Use History: None Reported Additional Past Alcohol Use History / Comment(s): smokes daily and somkes marijuana Past Drug Use History: Marijuana Additional Drug Use History / Comment(s): smokes every evening Medications and Allergies Home Medications Medication Instructions Recorded Confirmed Type Clopidogrel [Plavix] 75 mg PO DAILY 02/18/14 08/06/20 History Vilazodone HCl [Viibryd] 40 mg PO DAILY 02/18/14 08/06/20 History Amitriptyline HCl [Elavil] 25 mg PO HS 04/06/18 08/06/20 History Levothyroxine Sodium [Synthroid] 100 mcg PO DAILY 04/06/18 08/06/20 History OXcarbazepine [Trileptal] 150 mg PO DAILY 04/06/18 08/06/20 History OXcarbazepine [Trileptal] 300 mg PO HS 04/06/18 08/06/20 History oxyCODONE-APAP 10-325MG [Percocet 1 tab PO TID PRN 04/06/18 08/06/20 History 10-325 mg] Pregabalin [Lyrica] 150 mg PO BID 09/13/18 08/06/20 History lisinopriL [Zestril] 20 mg PO HS 09/13/18 08/06/20 History ALPRAZolam [Xanax] 1 mg PO TID PRN 08/06/20 08/06/20 History Isosorbide Mononitrate ER [Imdur] 30 mg PO DAILY 08/06/20 08/06/20 History Oxybutynin Chloride [Ditropan XL] 10 mg PO HS 08/06/20 08/06/20 History QUEtiapine FUMARATE [SEROquel] 300 mg PO HS 08/06/20 08/06/20 History Allergies Allergy/AdvReac Type Severity Reaction Status Date / Time ciprofloxacin [From Cipro] Allergy Anaphylaxis Verified 08/06/20 21:21 Penicillins Allergy Swelling Verified 08/06/20 21:21 vancomycin Allergy Dyspnea Verified 08/06/20 21:21 ketorolac tromethamine AdvReac Itching Verified 08/06/20 21:21 [From Toradol] NSAIDS (Non-Steroidal AdvReac STOMACH Verified 08/06/20 21:21 Anti-Inflamma ULCER Physical Examination - Vital Signs Vital Signs: Vital Signs Temp Pulse Pulse Resp BP BP Pulse Ox 08/07/20 12:00 57 L 16 120/60 93 L 08/07/20 11:20 16 08/07/20 08:00 56 L 16 101/42 93 L 08/07/20 04:00 98.0 F 55 L 18 100/52 95 08/07/20 03:21 59 L 18 08/07/20 00:00 97.4 F L 59 L 18 128/81 95 08/06/20 22:26 97.6 F 57 L 18 144/70 94 L 08/06/20 22:15 59 L 18 08/06/20 22:04 98.9 F 56 L 12 127/75 98 08/06/20 20:00 54 L 12 93/62 94 L 08/06/20 18:27 98.1 F 64 12 116/58 95 Intake and Output 08/06/20 08/07/20 08/07/20 22:59 06:59 14:59 Intake Total 10 Balance 10 Intake: IV 10 0.9 10 Other: Voiding Method Toilet Toilet Toilet # Voids 1 1 Weight 73.482 kg 74.3 kg GENERAL: The patient is lying in bed and is not in acute distress. CHEST: The heart rate is regular rate rhythm. No murmurs to auscultation. No carotid bruit bilaterally. LUNG: Clear to auscultation bilaterally no wheezing noted throughout. Not labored breathing. ABDOMEN/GI: Bowel sounds present in all 4 quadrants. No tenderness to palpation throughout. NEUROLOGICAL: Higher mental function: The patient is attempting to sleep during the examination but was arousable to voice. She is Oriented to self, place and time. Patient is following commands. No aphasia and no neglect. Cranial nerves: She continously had both eyelids closed and said "I don't know why I can't keep my eyes open". The pupils are round, equal, 3-4mm and reactive to light and accommodation. Visual singleton are full to confrontation throughout. Extraocular movement is intact no nystagmus is noted. Facial sensation is normal to touch throughout. The facial strength is normal throughout. Hearing is normal bilaterally to hand rub. Tongue is midline and moved [id number] without any difficulty. No dysarthria is noted. Shoulder shrug is normal b ilaterally. Motor: Gait: patient felt light headed upon standing but otherwise gait is normal with normal arm swings. The strength is 5 over 5 throughout. Normal tone and bulk. Cerebellum: Normal finger to nose bilaterally. Sensation: Sensation is decreased to touch on the entire right lower extremity (old). Otherwise normal to touch throughout. Reflexes (right/left): 2+ throughout except ankles are 1+ bilaterally. Plantars are downgoing bilaterally. Results - Laboratory Findings CBC and BMP: 08/06/20 18:38 08/06/20 18:38 Abnormal Lab Findings: Abnormal Labs 08/06/20 08/06/20 08/07/20 18:38 18:38 06:47 MCV 106.1 H D MCHC 30.9 L Potassium 3.4 L Chloride 111 H Glucose 115 H Calcium 8.0 L Total Protein 6.0 L Albumin 3.4 L Triglycerides 240 H Cholesterol 240 H LDL Cholesterol, Calc 143 H Assessment and Plan Assessment: This is a 60-year-old right-handed woman presented emergency department because of slurring of the speech for the last 2-3 days the was told that her left eye was drooping. Difficulty opening her both her eyes, stumbling upon walk-in and falling over the last 2-3 weeks, having the weakness over the left side over the last couple weeks, having ringing in in both ears and feeling lightheadedness upon standing over the last couple months. She has multiple symptoms which presenting with slurring the speech 2-3 days, difficulty keeping her eyes open, ringing in the ears and hearing loss having subjective left-sided weakness and falls over weeks to months which my suspicion of a stroke is low. I don't feel I can localize it to one that area. Peripheral neuropathy of right lower extremity as a result of the surgery of her lower back History of coronary artery disease status post stent that. Hypertension Dyslipidemia History of hypothyroidism Neurogenic bladder status post stimulator (2008) Tobacco use Plan: I will order orthostatic vitals were blood pressure and heart rate lying sitting and standing. I'll order a TSH, vitamin B12, folate, vitamin B6. I will order acetylcholine receptor antibody rule out myasthenia gravis which I doubt since that at this age would be more of a male predominance than female. I'll order the 2D -echo. Currently the patient's is on aspirin 325 and Plavix 75. Neurology perspective she can be on either on either on aspirin or Plavix but will defer it to either to the primary team if they need dual antiplatelets or she is on it because of her coronary artery disease with stenting. Placed the patient on the Lipitor 40 mg daily especially with the hyperlipidemia. Ordered hemoglobin A1c. Can Not get MRI of the brain since the patient has neurogenic stimulator. physical therapy and occupation are consulted. Patient was counseled on tobacco cessation. Patient was notified that consider seeing ENT as an outpatient. And possibly the vestibular rehab as an outpatient. Thank you for the consultation. Miguel Benjamin M.D. Neuro-hospitalist Time with Patient: Greater than 30
[2020-08-07] MEDS ORDERED: HYDROmorphone 0.5 MG/0.5 ML SYRINGE IVP STA (17:02)
[2020-08-07] MEDS: AMITRIPTYLINE HCL 25 MG TAB PO SCH (20:36)
[2020-08-07] MEDS: ASPIRIN 325 MG TAB PO SCH (20:36)
[2020-08-07] MEDS: QUEtiapine 100 MG TAB PO SCH (20:37)
[2020-08-07] MEDS: OXYBUTYNIN 10 MG TAB.ER.24 PO SCH (20:37)
[2020-08-07] MEDS: lisinopriL 20 MG TAB PO SCH (20:37)
[2020-08-07] MEDS: ATORVASTATIN 40 MG TAB PO SCH (20:37)
[2020-08-07] MEDS ORDERED: AMITRIPTYLINE HCL 25 MG TAB PO SCH (21:00)
[2020-08-07] MEDS ORDERED: POTASSIUM CHLORIDE ER 20 MEQ TAB.ER PO STA (22:24)
--- NOTE | 2020-08-07 22:25 | P.HPIM ---
History of Present Illness H&P Date: 08/07/20 Chief Complaint: loss of balance Patient is a 60-year-old female with a known history of coronary artery disease with history of stent placement, fibromyalgia, history of [place], hypothyroidism, interstitial cystitis, chronic back pain and back stimulator placement, anxiety/bipolar and depression and currently everyday smoker and marijuana use on daily basis came to ER with complaints of difficulty balancing and swaying to the sides and holding onto the [place]. Patient states that she did have slurred speech. She was told by her daughter to go to the hospital to check out. Patient called EMS to bring her to the area for possible stroke. Patient denied any complaints of chest pain or shortness breath. No palpitations. For the past few days patient has not been to her normal self. Patient states that she fell recently and has been having bilateral knee pains. Patient is requesting IV pain medications. Denies any head trauma. No fever no chills. No recent illnesses. No dysuria or hematuria. No cough or sputum production. No recent travel. Laboratory data showed WBC 8.5, hemoglobin 14.2, platelets 200 Sodium 142 potassium 3.4, chloride 111, calcium 8.0, CT head showed no acute abnormality CT angiogram of the head and neck showed no significant abnormalities seen. Chest x-ray showed no acute process EKG showed sinus bradycardia with heart rate 51 Review of Systems Constitutional: Patient denies any fever or chills . No generalized weakness or weight loss. Abdomen: Patient denied nausea vomiting and diarrhea and abdominal pain. Cardiovascular: Patient denies any chest pain or short of breath no palpitations. Respiratory: patient denied any cough or sputum production. No shortness of breath Neurologic: Patient denied any numbness or tingling headache. Patient complains of loss of balance and slurred speech and swaying to the sides. Musculoskeletal: Patient denies any complaints of joint swelling or deformity. Skin: Negative Psychiatric: Negative Endocrine: No heat or cold intolerance. No recent weight gain. Genitourinary: No dysuria or hematuria. All other 14 point ROS negative except the above Past Medical History Past Medical History: Coronary Artery Disease (CAD), Chest Pain / Angina, Fibromyalgia, Myocardial Infarction ([place]), Osteoarthritis (OA), Thyroid Disorder Additional Past Medical History / Comment(s): interstitial cystitis; Back Pain Last Myocardial Infarction Date:: 2015 History of Any Multi-Drug Resistant Organisms: None Reported Past Surgical History: Back Surgery, Bladder Surgery, Breast Surgery, Heart Catheterization With Stent, Hysterectomy Additional Past Surgical History / Comment(s): bladder stimulator, neck surgery, heart cath with stents in 2013 and 2015 Past Anesthesia/Blood Transfusion Reactions: No Reported Reaction Date of Last Stent Placement:: 2015 Past Psychological History: Anxiety, Bipolar, Depression Smoking Status: Current every day smoker Past Alcohol Use History: None Reported Additional Past Alcohol Use History / Comment(s): smokes daily and somkes marijuana Past Drug Use History: Marijuana Additional Drug Use History / Comment(s): smokes every evening Medications and Allergies Home Medications Medication Instructions Recorded Confirmed Type Clopidogrel [Plavix] 75 mg PO DAILY 02/18/14 08/06/20 History Vilazodone HCl [Viibryd] 40 mg PO DAILY 02/18/14 08/06/20 History Amitriptyline HCl [Elavil] 25 mg PO HS 04/06/18 08/06/20 History Levothyroxine Sodium [Synthroid] 100 mcg PO DAILY 04/06/18 08/06/20 History OXcarbazepine [Trileptal] 150 mg PO DAILY 04/06/18 08/06/20 History OXcarbazepine [Trileptal] 300 mg PO HS 04/06/18 08/06/20 History oxyCODONE-APAP 10-325MG [Percocet 1 tab PO TID PRN 04/06/18 08/06/20 History 10-325 mg] Pregabalin [Lyrica] 150 mg PO BID 09/13/18 08/06/20 History lisinopriL [Zestril] 20 mg PO HS 09/13/18 08/06/20 History ALPRAZolam [Xanax] 1 mg PO TID PRN 08/06/20 08/06/20 History Isosorbide Mononitrate ER [Imdur] 30 mg PO DAILY 08/06/20 08/06/20 History Oxybutynin Chloride [Ditropan XL] 10 mg PO HS 08/06/20 08/06/20 History QUEtiapine FUMARATE [SEROquel] 300 mg PO HS 08/06/20 08/06/20 History Allergies Allergy/AdvReac Type Severity Reaction Status Date / Time ciprofloxacin [From Cipro] Allergy Anaphylaxis Verified 08/06/20 21:21 Penicillins Allergy Swelling Verified 08/06/20 21:21 vancomycin Allergy Dyspnea Verified 08/06/20 21:21 ketorolac tromethamine AdvReac Itching Verified 08/06/20 21:21 [From Toradol] NSAIDS (Non-Steroidal AdvReac STOMACH Verified 08/06/20 21:21 Anti-Inflamma ULCER Physical Exam Vitals: Vital Signs Temp Pulse Pulse Resp BP BP Pulse Ox 08/07/20 08:00 56 L 16 101/42 93 L 08/07/20 04:00 98.0 F 55 L 18 100/52 95 08/07/20 03:21 59 L 18 08/07/20 00:00 97.4 F L 59 L 18 128/81 95 08/06/20 22:26 97.6 F 57 L 18 144/70 94 L 08/06/20 22:15 59 L 18 08/06/20 22:04 98.9 F 56 L 12 127/75 98 08/06/20 20:00 54 L 12 93/62 94 L 08/06/20 18:27 98.1 F 64 12 116/58 95 Intake and Output 08/06/20 08/07/20 08/07/20 22:59 06:59 14:59 Intake Total 10 Balance 10 Intake: IV 10 0.9 10 Other: Voiding Method Toilet Toilet # Voids 1 1 Weight 73.482 kg 74.3 kg PHYSICAL EXAMINATION: Patient is lying in the bed comfortably, no acute distress, awake alert and oriented.. HEENT: Normocephalic. Neck is supple. Pupils reactive. Nostrils clear. Oral cavity is moist. Ears reveal no drainage. Neck reveals no JVD, carotid bruits, or thyromegaly. CHEST EXAMINATION: Trachea is central. Symmetrical expansion. Lung singleton clear to auscultation and percussion. CARDIAC: Normal S1, S2 with no gallops. No murmurs ABDOMEN: Soft. Bowel sounds normal. No organomegaly. No abdominal bruits. Extremities: reveal no edema. No clubbing or cyanosis Neurologically awake, alert, oriented x3 with well-coordinated movements. No focal deficits noted Skin: No rash or skin lesions. Psychiatric: Coperative. Nonsuicidal Musculoskeletal: No joint swelling or deformity. Normal range of motion. Results CBC & Chem 7: 08/06/20 18:38 08/06/20 18:38 Labs: Abnormal Lab Results - Last 24 Hours (Table) 08/06/20 08/06/20 08/07/20 Range/Units 18:38 18:38 06:47 MCV 106.1 H D (80.0-100.0) fL MCHC 30.9 L (31.0-37.0) g/dL Potassium 3.4 L (3.5-5.1) mmol/L Chloride 111 H (98-107) mmol/L Glucose 115 H (74-99) mg/dL Calcium 8.0 L (8.4-10.2) mg/dL Total Protein 6.0 L (6.3-8.2) g/dL Albumin 3.4 L (3.5-5.0) g/dL Triglycerides 240 H (<150) mg/dL Cholesterol 240 H (<200) mg/dL LDL Cholesterol, Calc 143 H (0-99) mg/dL Thrombosis Risk Factor Assmnt - DVT/VTE Prophylaxis DVT/VTE Prophylaxis: Pharmacologic Prophylaxis ordered - Choose All That Apply Any of the Below Risk Factors Present?: No Other Risk Factors: Yes Each Risk Factor Represents 2 Points: Age 61-74 years Other congenital or acquired thrombophilia - If yes, enter type in comment: No Thrombosis Risk Factor Assessment Total Risk Factor Score: 2 Thrombosis Risk Factor Assessment Level: Low Risk Assessment and Plan Assessment: Difficulty in balancing, slurred speech and multiple nonlocalizing neurologic symptoms. Possible due to medication overdose and chronic low back pain Chronic low back pain Neurogenic bladder status post neurostimulator placement Sinus bradycardia with heart rate 51 Coronary artery disease history of stent placement Fibromyalgia Anxiety/depression/bipolar disorder Currently everyday smoker and marijuana use on daily basis History of [place] Osteoarthritis Hypothyroidism Peripheral neuropathy nonalcoholic DVT prophylaxis with Lovenox. Plan: Patient will be continued on telemetry monitoring. CT head and CT angiogram was negative. Neurology is following. TSH, B12 and folate levels ordered. Continue with pain management and limit narcotic pain medication use. Orthostatic vitals negative. Continue with gentle hydration and follow-up closely. Further recommendations based on the clinical course. Time with Patient: Greater than 30
[2020-08-07] MEDS: SODIUM CHLORIDE 0.9% 1,000 ML IV SCH (23:27)
[2020-08-07] MEDS: ENOXAPARIN 40 MG/0.4 ML SYRINGE SQ SCH (23:27)
[2020-08-08] MEDS: ALPRAZolam 1 MG TAB PO PRN ×3 (02:12→22:37)
[2020-08-08] MEDS: LEVOTHYROXINE 100 MCG TAB PO SCH (06:22)
[2020-08-08 07:55] LABS: Basophils # (A) 0.1 k/uL (0-0.2); Basophils % (A) 1 %; Eosinophils # (A) 0.3 k/uL (0-0.7); Eosinophils % (A) 6 %; HCT 47.1 % (34.0-46.0); HGB 15.1 gm/dL (11.4-16.0); Lymphocytes # (A) 1.9 k/uL (1.0-4.8); Lymphocytes % (A) 32 %; MCHC 32.1 g/dL (31.0-37.0); Macrocytosis Moderate; Mean Platelet Volume 7.9; Monocytes # (A) 0.4 k/uL (0-1.0); Monocytes % (A) 7 %; Neutrophils # (A) 3.2 k/uL (1.3-7.7); Neutrophils % (A) 53 %; Platelet Count 186 k/uL (150-450); RBC 4.44 m/uL (3.80-5.40)
[2020-08-08 07:59] LABS: Calcium 8.6 mg/dL (8.4-10.2); Potassium 4.6 mmol/L (3.5-5.1)
[2020-08-08 09:04] LABS: T4, Free (Free Thyroxine) 0.59 ng/dL (0.78-2.19)
[2020-08-08] MEDS: PREGABALIN 50 MG CAP PO SCH ×2 (09:26→19:55)
[2020-08-08] MEDS: NICOTINE 14MG/24HR PATCH TRANSDERM SCH (09:26)
[2020-08-08] MEDS: ISOSORBIDE MONONITRATE ER 30 MG TAB.ER.24H PO SCH (09:26)
[2020-08-08] MEDS: CLOPIDOGREL 75 MG TAB PO SCH (09:26)
[2020-08-08] MEDS: ENOXAPARIN 40 MG/0.4 ML SYRINGE SQ SCH (09:26)
[2020-08-08] MEDS: Vilazodone Hcl [Viibryd] 40 MG Tablet PO SCH (09:32)
[2020-08-08] MEDS: OXcarbazepine 150 MG TAB PO SCH ×2 (09:32→21:13)
--- NOTE | 2020-08-08 12:04 | ECHOF ---
Referral Reason:stroke MEASUREMENTS -------- HEIGHT: 154.9 cm WEIGHT: 73.9 kg BP: 120/60 RVIDd: 3.3 cm (< 3.3) IVSd: 1.2 cm (0.6 - 1.1) LVIDd: 4.6 cm (3.9 - 5.3) LVPWd: 1.1 cm (0.6 - 1.1) IVSs: 1.7 cm LVIDs: 3.0 cm LVPWs: 1.5 cm LA Diam: 3.6 cm (2.7 - 3.8) LAESV Index (A-L): 28.10 ml/m Ao Diam: 3.1 cm (2.0 - 3.7) AV Cusp: 2.1 cm (1.5 - 2.6) MV EXCURSION: 17.896 mm (> 18.000) MV EF SLOPE: 89 mm/s (70 - 150) EPSS: 0.5 cm MV E Mg: 0.69 m/s MV DecT: 245 ms MV A Mg: 0.76 m/s MV E/A Ratio: 0.90 AV maxP.76 mmHg AV meanP.13 mmHg AR PHT: 526 ms RAP: 5.00 mmHg RVSP: 28.31 mmHg FINDINGS -------- Sinus rhythm. This was a technically good study. The left ventricular size is normal. There is borderline concentric left ventricular hypertrophy. Overall left ventricular systolic function is normal with, an EF between 60 - 65 %. The right ventricle is mildly enlarged. Normal LA size by volume 22+/-6 ml/m2. The right atrium is normal in size. Interatrial and interventricular septum intact. There is mild aortic valve sclerosis. There is mild aortic regurgitation. Mild mitral regurgitation is present. Mild tricuspid regurgitation present. Right ventricular systolic pressure is normal at < 35 mmHg. Trace/mild (physiologic) pulmonic regurgitation. The aortic root size is normal. Normal inferior vena cava with normal inspiratory collapse consistent with estimated right atrial pre ssure of 5 mmHg. There is no pericardial effusion. CONCLUSIONS -------- 1. The left ventricular size is normal. 2. There is borderline concentric left ventricular hypertrophy. 3. Overall left ventricular systolic function is normal with, an EF between 60 - 65 %. 4. The right ventricle is mildly enlarged. 5. Normal LA size by volume 22+/-6 ml/m2. 6. There is mild aortic valve sclerosis. 7. There is mild aortic regurgitation. 8. Mild mitral regurgitation is present. 9. Mild tricuspid regurgitation present. 10. Trace/mild (physiologic) pulmonic regurgitation. 11. There is no pericardial effusion. FOLDER TAPER OPERATOR: Bette Cottrell RDCS
[2020-08-08] MEDS: oxyCODONE-APAP 10-325MG 1 EACH TAB PO PRN ×2 (14:47→22:37)
--- NOTE | 2020-08-08 16:27 | P.PN ---
Subjective Progress Note Date: 08/08/20 Patient was seen at bedside and she feels the about the same today compared to yesterday. Per the patient that she still feels tired. Per the patient nurse the patient continues to ask for her pain medication frequently. She stated that the patient was called her family members to bring Xanax and the other pain medication to the hospital for her. Objective - Vital Signs Vital signs: Vital Signs Temp 97.7 F 08/08/20 03:39 Pulse 65 08/08/20 08:00 Resp 16 08/08/20 08:00 BP 133/53 08/08/20 08:00 Pulse Ox 91 L 08/08/20 08:00 Intake & Output 08/07/20 08/08/20 08/08/20 18:59 06:59 18:59 Intake Total 240 365 Output Total 400 0 300 Balance -160 0 65 Weight 75 kg Intake: Oral 240 365 Output: Urine 400 0 300 Other: Voiding Method Toilet Toilet Toilet # Voids 1 1 - Exam GENERAL: The patient is lying in bed and is not in acute distress. CHEST: The heart rate is regular rate rhythm. No murmurs to auscultation. . LUNG: Clear to auscultation bilaterally no wheezing noted throughout. Not labored breathing. NEUROLOGICAL: Higher mental function: The patient is more awake today compared to yesterday. She is Oriented to self, place and time. Patient is following commands. No aphasia and no neglect. Cranial nerves: The pupils are round, equal, 3-4mm and reactive to light and accommodation. Visual singleton are full to confrontation throughout. Extraocular movement is intact no nystagmus is noted. Facial sensation is normal to touch throughout. The facial strength is normal throughout. Hearing is normal jeff aterally to hand rub. Tongue is midline and moved [id number] without any difficulty. No dysarthria is noted. Shoulder shrug is normal bilaterally. Motor: Gait: patient felt light headed upon standing but otherwise gait is normal with normal arm swings. The strength is 5 over 5 throughout. Normal tone and bulk. Cerebellum: Normal finger to nose bilaterally. Sensation: Sensation is decreased to touch on the entire right lower extremity (old). Otherwise normal to touch throughout. Reflexes (right/left): 2+ throughout except ankles are 1+ bilaterally. Plantars are downgoing bilaterally. - Labs CBC & Chem 7: 08/08/20 06:29 08/08/20 06:29 Labs: Abnormal Lab Results - Last 24 Hours (Table) 08/08/20 08/08/20 Range/Units 06:29 06:29 Hct 47.1 H (34.0-46.0) % MCV 106.0 H (80.0-100.0) fL Chloride 108 H (98-107) mmol/L BUN 18 H (7-17) mg/dL TSH 22.400 H (0.465-4.680) mIU/L Free T4 0.59 L (0.78-2.19) ng/dL Assessment and Plan Assessment: This is a 60-year-old right-handed woman presented emergency department because of slurring of the speech for the last 2-3 days the was told that her left eye w as drooping. Difficulty opening her both her eyes, stumbling upon walk-in and falling over the last 2-3 weeks, having the weakness over the left side over the last couple weeks, having ringing in in both ears and feeling lightheadedness upon standing over the last couple months. * She has multiple symptoms which presenting with slurring the speech 2-3 days, difficulty keeping her eyes open, ringing in the ears and hearing loss having subjective left-sided weakness and falls over weeks to months which my suspicion of a stroke is low. Seem uncontrolled hypothyroidism (states on same medication for years) another factor that might be worsening her condition making her sleepy tired all the time as her narcotic and benzos (per nurse she came continuously to assess for pain medication and the nurse stated that she called family members to bring the benzos and narcotics to the hospital for her). * Peripheral neuropathy of right lower extremity as a result of the surgery of her lower back * History of coronary artery disease status post stent that. * Hypertension * Dyslipidemia * History of hypothyroidism that seems to uncontrolled * Neurogenic bladder status post stimulator (2008) * Tobacco use Plan: I will order orthostatic vitals were blood pressure and heart rate lying sitting and standing. TSH: 22.4 and free 0.59 (see hypothyroidism), vitamin B12: 653 (normal), folate: pending, vitamin B6: pending.. Acetylcholine receptor antibody: Pending. To rule out myasthenia gravis which I doubt since that at this age would be more of a male predominance than female. 2D -echo: Surgically ventricle hypertrophy. Ejection fraction between 60-65%. Normal left atrial size. Currently the patient's is on aspirin 325 and Plavix 75. From Neurology perspective she can be on either on either on aspirin or Plavix but will defer it to either to the primary team if they need dual antiplatelets or she is on it because of her coronary artery disease with stenting. Placed the patient on the Lipitor 40 mg daily especially with the hyperlipidemia. hemoglobin A1c: pending. Can Not get MRI of the brain since the patient has neurogenic stimulator. physical therapy and occupation are consulted. I'll ask the the nurse to repeat the orthostatic but this time with the heart rate. The one that was done was done only with blood pressure. Patient was counseled on tobacco cessation. Patient is to avoid any narcotics or bend those which will affect her mentation. If the orthostatic vitals are normal and then no further neurological workup is needed. Miguel Benjamin M.D. Neuro-hospitalist Time with Patient: Less than 30
[2020-08-08 17:47] LABS: Hemoglobin A1C 5.7 % (4.0-6.0)
[2020-08-08] MEDS: SODIUM CHLORIDE 0.9% 1,000 ML IV SCH (19:58)
[2020-08-08] MEDS ORDERED: amLODIPine 10 MG TAB PO SCH (20:30)
[2020-08-08] MEDS: ATORVASTATIN 40 MG TAB PO SCH (21:12)
[2020-08-08] MEDS: ASPIRIN 325 MG TAB PO SCH (21:12)
[2020-08-08] MEDS: AMITRIPTYLINE HCL 25 MG TAB PO SCH (21:12)
[2020-08-08] MEDS: lisinopriL 20 MG TAB PO SCH (21:12)
[2020-08-08] MEDS: OXYBUTYNIN 10 MG TAB.ER.24 PO SCH (21:13)
[2020-08-08] MEDS: QUEtiapine 100 MG TAB PO SCH (21:13)
[2020-08-08 23:28] VITALS: RESP 18
[2020-08-09] MEDS: SODIUM CHLORIDE 0.9% 1,000 ML IV SCH (02:39)
[2020-08-09] MEDS ORDERED: LEVOTHYROXINE 125 MCG TAB PO SCH (06:30)
[2020-08-09] MEDS: ENOXAPARIN 40 MG/0.4 ML SYRINGE SQ SCH (09:11)
[2020-08-09] MEDS: NICOTINE 14MG/24HR PATCH TRANSDERM SCH (09:11)
[2020-08-09] MEDS: ISOSORBIDE MONONITRATE ER 30 MG TAB.ER.24H PO SCH (09:12)
[2020-08-09] MEDS: OXcarbazepine 150 MG TAB PO SCH (09:12)
[2020-08-09] MEDS: PREGABALIN 50 MG CAP PO SCH (09:12)
[2020-08-09] MEDS: CLOPIDOGREL 75 MG TAB PO SCH (09:16)
[2020-08-09] MEDS: ALPRAZolam 1 MG TAB PO PRN (09:17)
[2020-08-09] MEDS: oxyCODONE-APAP 10-325MG 1 EACH TAB PO PRN (09:17)
--- NOTE | 2020-08-09 10:14 | P.PN ---
Subjective Progress Note Date: 08/08/20 Principal diagnosis: Difficulty in balancing, slurred speech and multiple nonlocalizing neurologic symptoms. Possible due to medication overdose and chronic low back pain Patient is a 60-year-old female with a known history of coronary artery disease with history of stent placement, fibromyalgia, history of AR, hypothyroidism, interstitial cystitis, chronic back pain and back stimulator placement, anxiety/bipolar and depression and currently everyday smoker and marijuana use on daily basis came to ER with complaints of difficulty balancing and swaying to the sides and holding onto the [place]. Patient states that she did have slurred speech. She was told by her daughter to go to the hospital to check out. Patient called EMS to bring her to the area for possible stroke. Patient denied any complaints of chest pain or shortness breath. No palpitations. For the past few days patient has not been to her normal self. Patient states that she fell recently and has been having bilateral knee pains. Patient is requesting IV pain medications. Denies any head trauma. No fever no chills. No recent illnesses. No dysuria or hematuria. No cough or sputum production. No recent travel. Laboratory data showed WBC 8.5, hemoglobin 14.2, platelets 200 Sodium 142 potassium 3.4, chloride 111, calcium 8.0, CT head showed no acute abnormality CT angiogram of the head and neck showed no significant abnormalities seen. Chest x-ray showed no acute process EKG showed sinus bradycardia with heart rate 51 08/08/2020 Patient is currently lying in the bed comfortably. Still feels very weak. No complains of chest pain or shortness of breath. Patient is requesting narcotic pain medications and Xanax. Patient has been febrile. No cough is from production. Otherwise free T4 level is low and TSH is elevated to 22. Levothyroxine dose increased to 125 g daily. MRI of the brain could not be done due to neuro stimulant. Neurology is on board. All other review of systems negative except as above. Current medications reviewed. Objective - Vital Signs Vital signs: Vital Signs Temp 98.0 F 08/08/20 19:57 Pulse 66 08/08/20 20:00 Resp 16 08/08/20 20:00 BP 137/73 08/08/20 19:57 Pulse Ox 94 L 08/08/20 19:57 Intake & Output 08/08/20 08/08/20 08/09/20 06:59 18:59 06:59 Intake Total 605 Output Total 0 300 Balance 0 305 Weight 75 kg Intake: Oral 605 Output: Urine 0 300 Other: Voiding Method Toilet Toilet Toilet # Voids 1 1 - Exam PHYSICAL EXAMINATION: Patient is lying in the bed comfortably, no acute distress, awake alert and oriented.. HEENT: Normocephalic. Neck is supple. Pupils reactive. Nostrils clear. Oral cavity is moist. Ears reveal no drainage. Neck reveals no JVD, carotid bruits, or thyromegaly. CHEST EXAMINATION: Trachea is central. Symmetrical expansion. Lung singleton clear to auscultation and percussion. CARDIAC: Normal S1, S2 with no gallops. No murmurs ABDOMEN: Soft. Bowel sounds normal. No organomegaly. No abdominal bruits. Extremities: reveal no edema. No clubbing or cyanosis Neurologically awake, alert, oriented x3 with well-coordinated movements. No fo goran deficits noted Skin: No rash or skin lesions. Psychiatric: Coperative. Nonsuicidal Musculoskeletal: No joint swelling or deformity. Normal range of motion. - Labs CBC & Chem 7: 08/08/20 06:29 08/08/20 06:29 Labs: Abnormal Lab Results - Last 24 Hours (Table) 08/08/20 08/08/20 Range/Units 06:29 06:29 Hct 47.1 H (34.0-46.0) % MCV 106.0 H (80.0-100.0) fL Chloride 108 H (98-107) mmol/L BUN 18 H (7-17) mg/dL TSH 22.400 H (0.465-4.680) mIU/L Free T4 0.59 L (0.78-2.19) ng/dL Assessment and Plan Assessment: Difficulty in balancing, slurred speech and multiple nonlocalizing neurologic symptoms. Possible due to medication overdose and chronic low back pain Chronic low back pain Neurogenic bladder status post neurostimulator placement Sinus bradycardia with heart rate 51 Coronary artery disease history of stent placement Fibromyalgia Anxiety/depression/bipolar disorder Currently everyday smoker and marijuana use on daily basis History of AR Osteoarthritis Hypothyroidism with a low free T4 and elevated TSH level. Increase the dose to 125 mg daily. Peripheral neuropathy nonalcoholic DVT prophylaxis with Lovenox. Plan: Patient will be continued on telemetry monitoring. CT head and CT angiogram was negative. Neurology is following. TSH, B12 and folate levels within normal limits.. Continue with pain management and limit narcotic pain medication use. Orthostatic vitals negative. Continue with gentle hydration and follow-up closely. Further recommendations based on the clinical course. Time with Patient: Greater than 30
[2020-08-09 11:30] VITALS: TEMP 98.3
[2020-08-09 16:35] VITALS: BP 123/60; PULSE 64
== END 2020-08-09 15:45 | disposition home health service (06) | DRG 918 ==
LOC: EC 18:14 → 3SCARD 20:15
PROVIDERS: ADMIT Internal Medicine; ATTEND Internal Medicine
DX: T40.601A Poisoning by unspecified narcotics, accidental (unintentional), initial encounter (principal); E78.5 Hyperlipidemia, unspecified; E03.9 Hypothyroidism, unspecified; F12.90 Cannabis use, unspecified, uncomplicated; F17.210 Nicotine dependence, cigarettes, uncomplicated; F31.9 Bipolar disorder, unspecified; F41.9 Anxiety disorder, unspecified; H91.90 Unspecified hearing loss, unspecified ear; M19.90 Unspecified osteoarthritis, unspecified site; M79.7 Fibromyalgia; N31.9 Neuromuscular dysfunction of bladder, unspecified; R00.1 Bradycardia, unspecified; N30.10 Interstitial cystitis (chronic) without hematuria; G57.91 Unspecified mononeuropathy of right lower limb; R47.81 Slurred speech; I10 Essential (primary) hypertension; I25.10 Atherosclerotic heart disease of native coronary artery without angina pectoris; I25.2 Old myocardial infarction; Z79.890 Hormone replacement therapy; Z79.02 Long term (current) use of antithrombotics/antiplatelets; Z79.899 Other long term (current) drug therapy; Z88.6 Allergy status to analgesic agent; Z88.1 Allergy status to other antibiotic agents; Z88.0 Allergy status to penicillin; Z95.5 Presence of coronary angioplasty implant and graft; Z90.710 Acquired absence of both cervix and uterus; Z82.0 Family history of epilepsy and other diseases of the nervous system; Z98.890 Other specified postprocedural states; Z91.81 History of falling
CPT/HCPCS: 36415; 70450; 70496; 70498; 71045; 80048; 80053; 80061; 82607; 82747; 83036; 83519; 84207; 84439; 84443; 85025; 85610; 85730; 93005; 93306; 96365; 96366; 96375; 99285

== ENCOUNTER 2021-07-10 11:31 | Emergency (ER) | payer OTHER ==
[2021-07-10 11:41] VITALS: RESP 18; TEMP 98.1
--- NOTE | 2021-07-10 12:53 | ED ---
General Adult HPI - General Chief complaint: Dizziness Stated complaint: Dizziness,Weakness Time Seen by Provider: 07/10/21 12:16 Source: patient Mode of arrival: ambulatory Limitations: no limitations - History of Present Illness Initial comments: Dictation was produced using [employer] dictation software. please excuse any grammatical, word or spelling errors. Chief Complaint: 61-year-old feel presents with excessive somnolence History of Present Illness: Is 61-year-old female she has several comorbidities per she has history of chronic back pain, back surgery, coronary artery disease, fibromyalgia. She states that she is here today for feeling very sleepy. Patient's been sleeping up to 12 hours daily. She is also hasn't needed her occasions to help her sleep. She states that all of her symptoms began over the summer. She had 2 episodes of closed head injury. She had an outpatient CT performed after those injuries with no apparent issues. This was worked up by her primary care doctor. Although the last several weeks she states that she's been having excessive somnolence. Patient's daughters at the bedside reports that patient has been nodding off a lot recently. She states she has chronic back pain. She states her back pain is around its baseline. She states she has chronic radiculopathy to the right lower extremity that she reports is from her back. Patient has any abdominal pain. No nausea. No focal neurologic deficits. Denies any dizziness. The ROS documented in this emergency department record has been reviewed and confirmed by me. Those systems with pertinent positive or negative responses have been documented in the HPI. All other systems are other negative and/or noncontributory. PHYSICAL EXAM: General Impression: Alert and oriented x3, not in acute distress HEENT: Normocephalic atraumatic, extra-ocular movements intact, pupils equal and reactive to light bilaterally, mucous membranes moist. Cardiovascular: Heart regular rate and rhythm Chest: Able to complete full sentences, no retractions, no tachypnea Abdomen: abdomen soft, non-tender, non-distended, no organomegaly Musculoskeletal: Pulses present and equal in all extremities, no peripheral edema Motor: no focal deficits noted Neurological: CN II-XII grossly intact, no focal motor or sensory deficits noted Skin: Intact with no visualized rashes Psych: Normal affect and mood ED course: 61-year-old well-appearing female with multiple comorbidities presents to emergency department for several weeks of hypersomnolence, back pain. She has seen her primary care physician about this and is currently being worked up. Vital Signs upon arrival are within acceptable limits. Patient's medications are reviewed. Physical examination is benign. EKG interpretation: Ventricular rate 64, normal sinus rhythm,. 160, QRS 108, QTc 435. No FL prolongation, no QTC prolongation, no ST or T-wave changes noted. EKG compared to 07/10/2021 showing no changes. Overall, this EKG is unremarkable Laboratory evaluation obtained. CBC, metabolic panel is unremarkable. TSH level is low at 0.250. Patient is on thyroid medications. Urinalysis is negative. Computed tomography scan of the brain, chest x-ray lumbar spine x- rays unremarkable. Patient reevaluated at bedside at 3:15 PM found to be in stable medical condition. Patient clear for discharge. - Related Data Home Medications Medication Instructions Recorded Confirmed Clopidogrel [Plavix] 75 mg PO DAILY 02/18/14 07/10/21 Vilazodone HCl [Viibryd] 40 mg PO DAILY 02/18/14 07/10/21 Amitriptyline HCl [Elavil] 25 mg PO HS 04/06/18 07/10/21 oxyCODONE-APAP 10-325MG [Percocet 1 tab PO TID PRN 04/06/18 07/10/21 10-325 mg] ALPRAZolam [Xanax] 1 mg PO TID PRN 08/06/20 07/10/21 Oxybutynin Chloride [Ditropan XL] 10 mg PO HS 08/06/20 07/10/21 QUEtiapine FUMARATE [SEROquel] 300 mg PO HS 08/06/20 07/10/21 Isosorbide Mononitrate ER [Imdur] 60 mg PO DAILY 07/10/21 07/10/21 Metoprolol Succinate (ER) [Toprol 25 mg PO DAILY 07/10/21 07/10/21 Xl] Nitroglycerin Sl Tabs [Nitrostat] 0.4 mg SUBLINGUAL Q5M PRN 07/10/21 07/10/21 Omeprazole 20 mg PO DAILY 07/10/21 07/10/21 Pregabalin [Lyrica] 100 mg PO TID 07/10/21 07/10/21 Rosuvastatin [Crestor] 10 mg PO HS 07/10/21 07/10/21 estradioL [Estrace] 1 mg PO DAILY 07/10/21 07/10/21 lisinopriL [Zestril] 5 mg PO HS 07/10/21 07/10/21 Previous Rx's Medication Instructions Recorded Levothyroxine Sodium [Synthroid] 125 mcg PO DAILY@0630 #30 tab 08/09/20 Allergies Allergy/AdvReac Type Severity Reaction Status Date / Time ciprofloxacin [From Cipro] Allergy Anaphylaxis Verified 07/10/21 13:01 Penicillins Allergy Swelling Verified 07/10/21 13:01 vancomycin Allergy Dyspnea Verified 07/10/21 13:01 ketorolac tromethamine AdvReac Itching Verified 07/10/21 13:01 [From Toradol] NSAIDS (Non-Steroidal AdvReac STOMACH Verified 07/10/21 13:01 Anti-Inflamma ULCER Review of Systems ROS Statement: Those systems with pertinent positive or pertinent negative responses have been documented in the HPI. ROS Other: All systems not noted in ROS Statement are negative. Past Medical History Past Medical History: Coronary Artery Disease (CAD), Chest Pain / Angina, Fibromyalgia, Myocardial Infarction (PR), Osteoarthritis (OA), Thyroid Disorder Additional Past Medical History / Comment(s): interstitial cystitis; Back Pain Last Myocardial Infarction Date:: 2015 History of Any Multi-Drug Resistant Organisms: None Reported Past Surgical History: Back Surgery, Bladder Surgery, Breast Surgery, Heart Catheterization With Stent, Hysterectomy Additional Past Surgical History / Comment(s): bladder stimulator, neck surgery, heart cath with stents in 2013 and 2015 Past Anesthesia/Blood Transfusion Reactions: No Reported Reaction Date of Last Stent Placement:: 2015 Past Psychological History: Anxiety, Bipolar, Depression Smoking Status: Current every day smoker Past Alcohol Use History: None Reported Past Drug Use History: Marijuana General Exam Limitations: no limitations Course Vital Signs 07/10/21 11:36 Temperature 98.1 F Pulse Rate 68 Respiratory 18 Rate Blood Pressure 149/72 O2 Sat by Pulse 96 Oximetry Medical Decision Making - Lab Data Result diagrams: 07/10/21 12:46 07/10/21 12:46 Lab Results 07/10/21 07/10/21 07/10/21 Range/Units 12:46 12:46 12:46 WBC 10.9 H (3.8-10.6) k/uL RBC 4.41 (3.80-5.40) m/uL Hgb 15.0 (11.4-16.0) gm/dL Hct 45.5 (34.0-46.0) % MCV 103.3 H (80.0-100.0) fL MCH 34.0 (25.0-35.0) pg MCHC 32.9 (31.0-37.0) g/dL RDW 12.7 (11.5-15.5) % Plt Count 197 (150-450) k/uL MPV 8.7 Neutrophils % 81 % Lymphocytes % 13 % Monocytes % 4 % Eosinophils % 2 % Basophils % 0 % Neutrophils # 8.8 H (1.3-7.7) k/uL Lymphocytes # 1.4 (1.0-4.8) k/uL Monocytes # 0.4 (0-1.0) k/uL Eosinophils # 0.2 (0-0.7) k/uL Basophils # 0.0 (0-0.2) k/uL Macrocytosis Slight Sodium 141 (137-145) mmol/L Potassium 3.5 (3.5-5.1) mmol/L Chloride 106 (98-107) mmol/L Carbon Dioxide 29 (22-30) mmol/L Anion Gap 6 mmol/L BUN 9 (7-17) mg/dL Creatinine 0.72 (0.52-1.04) mg/dL Est GFR (CKD-EPI)AfAm >90 (>60 ml/min/1.73 sqM) Est GFR (CKD-EPI)NonAf >90 (>60 ml/min/1.73 sqM) Glucose 135 H (74-99) mg/dL Calcium 8.7 (8.4-10.2) mg/dL Magnesium 1.9 (1.6-2.3) mg/dL Total Bilirubin 0.4 (0.2-1.3) mg/dL AST 20 (14-36) U/L ALT 10 (4-34) U/L Alkaline Phosphatase 87 (38-126) U/L Ammonia (<30) umol/L Total Protein 6.3 (6.3-8.2) g/dL Albumin 3.7 (3.5-5.0) g/dL TSH 0.250 L (0.465-4.680) mIU/L Urine Color Light Yellow Urine Appearance Clear (Clear) Urine pH 6.0 (5.0-8.0) Ur Specific [place] 1.007 (1.001-1.035) Urine Protein Negative (Negative) Urine Glucose (UA) Negative (Negative) Urine Ketones Negative (Negative) Urine Blood Negative (Negative) Urine Nitrite Negative (Negative) Urine Bilirubin Negative (Negative) Urine Urobilinogen <2.0 (<2.0) mg/dL Ur Leukocyte Esterase Negative (Negative) 07/10/21 Range/Units 12:46 WBC (3.8-10.6) k/uL RBC (3.80-5.40) m/uL Hgb (11.4-16.0) gm/dL Hct (34.0-46.0) % MCV (80.0-100.0) fL MCH (25.0-35.0) pg MCHC (31.0-37.0) g/dL RDW (11.5-15.5) % Plt Count (150-450) k/uL MPV Neutrophils % % Lymphocytes % % Monocytes % % Eosinophils % % Basophils % % Neutrophils # (1.3-7.7) k/uL Lymphocytes # (1.0-4.8) k/uL Monocytes # (0-1.0) k/uL Eosinophils # (0-0.7) k/uL Basophils # (0-0.2) k/uL Macrocytosis Sodium (137-145) mmol/L Potassium (3.5-5.1) mmol/L Chloride (98-107) mmol/L Carbon Dioxide (22-30) mmol/L Anion Gap mmol/L BUN (7-17) mg/dL Creatinine (0.52-1.04) mg/dL Est GFR (CKD-EPI)AfAm (>60 ml/min/1.73 sqM) Est GFR (CKD-EPI)NonAf (>60 ml/min/1.73 sqM) Glucose (74-99) mg/dL Calcium (8.4-10.2) mg/dL Magnesium (1.6-2.3) mg/dL Total Bilirubin (0.2-1.3) mg/dL AST (14-36) U/L ALT (4-34) U/L Alkaline Phosphatase (38-126) U/L Ammonia 10 (<30) umol/L Total Protein (6.3-8.2) g/dL Albumin (3.5-5.0) g/dL TSH (0.465-4.680) mIU/L Urine Color Urine Appearance (Clear) Urine pH (5.0-8.0) Ur Specific [place] (1.001-1.035) Urine Protein (Negative) Urine Glucose (UA) (Negative) Urine Ketones (Negative) Urine Blood (Negative) Urine Nitrite (Negative) Urine Bilirubin (Negative) Urine Urobilinogen (<2.0) mg/dL Ur Leukocyte Esterase (Negative) Disposition Clinical Impression: Somnolence, daytime Disposition: HOME SELF-CARE Condition: Good Instructions (If sedation given, give patient instructions): Chronic Back Pain (DC) Is patient prescribed a controlled substance at d/c from ED?: No Referrals: Nathanael Nogueira MD [Primary Care Provider] - 1-2 days
[2021-07-10] MEDS ORDERED: HYDROmorphone 0.5 MG/0.5 ML SYRINGE IVP STA (13:17)
[2021-07-10 13:19] LABS: Basophils % (A) 0 %; Eosinophils # (A) 0.2 k/uL (0-0.7); Eosinophils % (A) 2 %; HCT 45.5 % (34.0-46.0); Lymphocytes # (A) 1.4 k/uL (1.0-4.8); Lymphocytes % (A) 13 %; MCHC 32.9 g/dL (31.0-37.0); MCV 103.3 fL (80.0-100.0); Macrocytosis Slight; Mean Platelet Volume 8.7; Monocytes # (A) 0.4 k/uL (0-1.0); Monocytes % (A) 4 %; Neutrophils # (A) 8.8 k/uL (1.3-7.7); Neutrophils % (A) 81 %; Platelet Count 197 k/uL (150-450); RBC 4.41 m/uL (3.80-5.40); RDW 12.7 % (11.5-15.5); WBC 10.9 k/uL (3.8-10.6)
[2021-07-10 13:32] LABS: ALT 10 U/L (4-34); AST 20 U/L (14-36); African American GFR (CKD) >90 (>60 ml/min/1.73 sqM); Albumin 3.7 g/dL (3.5-5.0); Alkaline Phosphatase 87 U/L (38-126); Anion Gap 6 mmol/L; Blood Urea Nitrogen 9 mg/dL (7-17); Calcium 8.7 mg/dL (8.4-10.2); Carbon Dioxide 29 mmol/L (22-30); Chloride 106 mmol/L (98-107); Glucose 135 mg/dL (74-99); Magnesium 1.9 mg/dL (1.6-2.3); Non-African American GFR(CKD) >90 (>60 ml/min/1.73 sqM); Potassium 3.5 mmol/L (3.5-5.1); Sodium 141 mmol/L (137-145); Total Bilirubin 0.4 mg/dL (0.2-1.3); Total Protein 6.3 g/dL (6.3-8.2)
[2021-07-10 13:36] LABS: Appearance,Urine Clear (Clear); Bilirubin,Urine Negative (Negative); Blood,Urine Negative (Negative); Color,Urine Light Yellow; Glucose,Urine (UA) Negative (Negative); Ketones,Urine Negative (Negative); Leukocyte Esterase,Urine Negative (Negative); Nitrite,Urine Negative (Negative); Protein,Urine Negative (Negative); Specific Gravity,Urine 1.007 (1.001-1.035); Urobilinogen,Urine <2.0 mg/dL (<2.0)
--- NOTE | 2021-07-10 14:44 | CT ---
EXAMINATION TYPE: CT brain wo con DATE OF EXAM: 07/10/2021 HISTORY: headache, nausea, vertigo, altered mental status. CT DLP: 1055.4 mGycm. Automated Exposure Control for Dose Reduction was Utilized. TECHNIQUE: CT scan of the head is performed without contrast. COMPARISON: CT brain August 06, 2020. FINDINGS: There is no acute intracranial hemorrhage or midline shift identified. Ventricles and sul goran size satisfactory and stable. Martínez-white matter differentiation is maintained. No suspicious opa cification mastoid air cells are The globes are intact and the visualized sinuses are clear. IMPRESSION: No acute intracranial hemorrhage or midline shift. No significant change from prior.
--- NOTE | 2021-07-10 14:46 | XR ---
EXAMINATION TYPE: XR chest 1V portable DATE OF EXAM: 07/10/2021 COMPARISON: Chest x-ray August 06, 2020. Chest CT 2017. HISTORY: Altered mental status and weakness. TECHNIQUE: Single frontal view of the chest is obtained. FINDINGS: There is no suspicious focal air space opacity, pleural effusion, or pneumothorax seen. T he cardiac silhouette size is stable and within normal limits. Surgical change cervical spine is rede monstrated. IMPRESSION: No acute process currently.
--- NOTE | 2021-07-10 14:50 | XR ---
EXAMINATION TYPE: XR lumbar spine 2 or 3V DATE OF EXAM: 07/10/2021 CLINICAL HISTORY: Low back pain. TECHNIQUE: Frontal and lateral images of the lumbar spine are obtained. COMPARISON: Lumbar spine x-ray June 15, 2020 FINDINGS: There are 5 lumbar type vertebral bodies redemonstrated. Persistent posterior interpedicul ar screws at L4 and L5 levels bilaterally along with left S1 level. Persistent metallic disc material L5-S1 disc space level. Persistent moderate disc space narrowing greatest posteriorly at L3-L4 level with moderate anterior spurring. Spinous process hypertrophy greatest at L3-L4 level again seen. Mod erate multilevel anterior and lateral spurring above the L3 level redemonstrated. The pelvic stimulat or device is redemonstrated. IMPRESSION: As above. No significant change from most recent x-ray.
[2021-07-10 15:55] VITALS: BP 139/74; PULSE 69
== END 2021-07-10 15:33 | disposition home or self-care (01) ==
LOC: EC 11:31
DX: R40.0 Somnolence (principal); M54.5 Low back pain; G89.29 Other chronic pain; I25.10 Atherosclerotic heart disease of native coronary artery without angina pectoris; I25.2 Old myocardial infarction; M19.90 Unspecified osteoarthritis, unspecified site; E07.9 Disorder of thyroid, unspecified; F41.9 Anxiety disorder, unspecified; F31.9 Bipolar disorder, unspecified; F17.200 Nicotine dependence, unspecified, uncomplicated; F12.90 Cannabis use, unspecified, uncomplicated; Z88.0 Allergy status to penicillin; Z88.1 Allergy status to other antibiotic agents; Z88.6 Allergy status to analgesic agent; Z90.710 Acquired absence of both cervix and uterus; Z79.02 Long term (current) use of antithrombotics/antiplatelets; Z79.899 Other long term (current) drug therapy
CPT/HCPCS: 99284; 96374; 36415; 93005; 80053; 82140; 83735; 84443; 85025; 81003; 72100; 71045; 70450; J1170

== ENCOUNTER 2021-07-18 13:40 | Observation (INO) | payer OTHER ==
[2021-07-18] MEDS ORDERED: ASPIRIN 81 MG PO STA (14:23)
[2021-07-18] MEDS ORDERED: NITROGLYCERIN OINT 1 INCH/GM PACKET TOPICAL STA (14:23)
[2021-07-18] MEDS ORDERED: LORazepam 2 MG/ML INJ IV STA (14:24)
--- NOTE | 2021-07-18 14:27 | ED ---
General Adult HPI - General Chief complaint: Chest Pain Stated complaint: Fatigue,chest pain,body ache Time Seen by Provider: 07/18/21 13:55 Source: patient, family, RN notes reviewed, old records reviewed Mode of arrival: wheelchair Limitations: no limitations - History of Present Illness Initial comments: This is a 61-year-old female presents emergency Department complaining of chest pain today she took 2 nitroglycerin and the pain persisted. Patient states it felt typical of her angina but it was a little stronger than normal so she came to the emergency department. Patient also complains that over the last few months since she had some head trauma in the summer she has been having episodes of slurred speech and loss of memory. Patient states today she is at her baseline though she does not notice any slurred speech. Patient states she is a smoker and does have high blood pressure and previous stents. Patient denies any cough fever or chills. Patient states she does have the COVID vaccine. Patient denies any abdominal pain patient denies nausea vomiting diarrhea. Patient denies any headache patient denies numbness weakness. Patient states anxiety is up because of the difficulty breathing - Related Data Home Medications Medication Instructions Recorded Confirmed Clopidogrel [Plavix] 75 mg PO DAILY 02/18/14 07/10/21 Vilazodone HCl [Viibryd] 40 mg PO DAILY 02/18/14 07/10/21 Amitriptyline HCl [Elavil] 25 mg PO HS 04/06/18 07/10/21 oxyCODONE-APAP 10-325MG [Percocet 1 tab PO TID PRN 04/06/18 07/10/21 10-325 mg] ALPRAZolam [Xanax] 1 mg PO TID PRN 08/06/20 07/10/21 Oxybutynin Chloride [Ditropan XL] 10 mg PO HS 08/06/20 07/10/21 QUEtiapine FUMARATE [SEROquel] 300 mg PO HS 08/06/20 07/10/21 Isosorbide Mononitrate ER [Imdur] 60 mg PO DAILY 07/10/21 07/10/21 Metoprolol Succinate (ER) [Toprol 25 mg PO DAILY 07/10/21 07/10/21 Xl] Nitroglycerin Sl Tabs [Nitrostat] 0.4 mg SUBLINGUAL Q5M PRN 07/10/21 07/10/21 Omeprazole 20 mg PO DAILY 07/10/21 07/10/21 Pregabalin [Lyrica] 100 mg PO TID 07/10/21 07/10/21 Rosuvastatin [Crestor] 10 mg PO HS 07/10/21 07/10/21 estradioL [Estrace] 1 mg PO DAILY 07/10/21 07/10/21 lisinopriL [Zestril] 5 mg PO HS 07/10/21 07/10/21 Previous Rx's Medication Instructions Recorded Levothyroxine Sodium [Synthroid] 125 mcg PO DAILY@0630 #30 tab 08/09/20 Allergies Allergy/AdvReac Type Severity Reaction Status Date / Time ciprofloxacin [From Cipro] Allergy Anaphylaxis Verified 07/18/21 13:44 Penicillins Allergy Swelling Verified 07/18/21 13:44 vancomycin Allergy Dyspnea Verified 07/18/21 13:44 ketorolac tromethamine AdvReac Itching Verified 07/18/21 13:44 [From Toradol] NSAIDS (Non-Steroidal AdvReac STOMACH Verified 07/18/21 13:44 Anti-Inflamma ULCER Review of Systems ROS Statement: Those systems with pertinent positive or pertinent negative responses have been documented in the HPI. ROS Other: All systems not noted in ROS Statement are negative. Past Medical History Past Medical History: Coronary Artery Disease (CAD), Chest Pain / Angina, Fibromyalgia, Myocardial Infarction ([place]), Osteoarthritis (OA), Thyroid Disorder Additional Past Medical History / Comment(s): interstitial cystitis; Back Pain Last Myocardial Infarction Date:: 2015 History of Any Multi-Drug Resistant Organisms: None Reported Past Surgical History: Back Surgery, Bladder Surgery, Breast Surgery, Heart Catheterization With Stent, Hysterectomy Additional Past Surgical History / Comment(s): bladder stimulator, neck surgery, heart cath with stents in 2013 and 2016 Past Anesthesia/Blood Transfusion Reactions: No Reported Reaction Date of Last Stent Placement:: 2015 Past Psychological History: Anxiety, Bipolar, Depression Smoking Status: Current every day smoker Past Alcohol Use History: None Reported Past Drug Use History: Marijuana General Exam - General Exam Comments Initial Comments: GENERAL: Patient is well-developed and well-nourished. Patient is nontoxic and well- hydrated and is in mild distress. ENT: Neck is soft and supple. No significant lymphadenopathy is noted. Oropharynx i s clear. Moist mucous membranes. Neck has full range of motion without eliciting any pain. EYES: The sclera were anicteric and conjunctiva were pink and moist. Extraocular movements were intact and pupils were equal round and reactive to light. Eyelids were unremarkable. PULMONARY: Unlabored respirations. Good breath sounds bilaterally. No audible rales rhonchi or wheezing was noted. CARDIOVASCULAR: There is a regular rate and rhythm without any murmurs gallops or rubs. ABDOMEN: Soft and nontender with normal bowel sounds. SKIN: Skin is clear with no lesions or rashes and otherwise unremarkable. NEUROLOGIC: Patient is alert and oriented x3. Cranial nerves II through XII are grossly intact. Motor and sensory are also intact. Normal speech, volume and content. Symmetrical smile. MUSCULOSKELETAL: Normal extremities with adequate strength and full range of motion. No lower extremity swelling or edema. No calf tenderness. LYMPHATICS: No significant lymphadenopathy is noted PSYCHIATRIC: Patient is very anxious Limitations: no limitations Course Vital Signs 07/18/21 07/18/21 13:44 15:51 Temperature 98 F Pulse Rate 67 64 Respiratory 18 18 Rate Blood Pressure 167/91 154/78 O2 Sat by Pulse 96 96 Oximetry Medical Decision Making - Medical Decision Making EKG shows normal sinus rhythm at 64 bpm AR interval is on a 78 QRSs 100 QT interval 414 QTC is 427. Patient's EKG shows no ST segment elevation or depression. Chest x-ray shows no acute abnormality. I spoke with some physicians group and they accepted the patient admitted the patient I wrote admitting orders I consult cardiology. - Lab Data Result diagrams: 07/18/21 14:28 07/18/21 14:28 Lab Results 07/18/21 07/18/21 07/18/21 Range/Units 14:28 14:28 14:28 WBC 8.0 (3.8-10.6) k/uL RBC 4.43 (3.80-5.40) m/uL Hgb 14.8 (11.4-16.0) gm/dL Hct 44.9 (34.0-46.0) % MCV 101.4 H (80.0-100.0) fL MCH 33.4 (25.0-35.0) pg MCHC 32.9 (31.0-37.0) g/dL RDW 12.8 (11.5-15.5) % Plt Count 225 (150-450) k/uL MPV 7.5 Neutrophils % 75 % Lymphocytes % 17 % Monocytes % 5 % Eosinophils % 2 % Basophils % 0 % Neutrophils # 6.0 (1.3-7.7) k/uL Lymphocytes # 1.4 (1.0-4.8) k/uL Monocytes # 0.4 (0-1.0) k/uL Eosinophils # 0.2 (0-0.7) k/uL Basophils # 0.0 (0-0.2) k/uL PT 10.8 (9.0-12.0) sec INR 1.0 (<1.2) APTT 27.2 (22.0-30.0) sec Sodium 141 (137-145) mmol/L Potassium 3.8 (3.5-5.1) mmol/L Chloride 108 H (98-107) mmol/L Carbon Dioxide 27 (22-30) mmol/L Anion Gap 6 mmol/L BUN 7 (7-17) mg/dL Creatinine 0.67 (0.52-1.04) mg/dL Est GFR (CKD-EPI)AfAm >90 (>60 ml/min/1.73 sqM) Est GFR (CKD-EPI)NonAf >90 (>60 ml/min/1.73 sqM) Glucose 96 (74-99) mg/dL Calcium 8.7 (8.4-10.2) mg/dL Magnesium 2.0 (1.6-2.3) mg/dL Total Bilirubin 0.4 (0.2-1.3) mg/dL AST 19 (14-36) U/L ALT 8 (4-34) U/L Alkaline Phosphatase 90 (38-126) U/L Troponin I (0.000-0.034) ng/mL Total Protein 6.3 (6.3-8.2) g/dL Albumin 3.7 (3.5-5.0) g/dL Coronavirus (PCR) (Not Detectd) 07/18/21 07/18/21 Range/Units 14:28 15:49 WBC (3.8-10.6) k/uL RBC (3.80-5.40) m/uL Hgb (11.4-16.0) gm/dL Hct (34.0-46.0) % MCV (80.0-100.0) fL MCH (25.0-35.0) pg MCHC (31.0-37.0) g/dL RDW (11.5-15.5) % Plt Count (150-450) k/uL MPV Neutrophils % % Lymphocytes % % Monocytes % % Eosinophils % % Basophils % % Neutrophils # (1.3-7.7) k/uL Lymphocytes # (1.0-4.8) k/uL Monocytes # (0-1.0) k/uL Eosinophils # (0-0.7) k/uL Basophils # (0-0.2) k/uL PT (9.0-12.0) sec INR (<1.2) APTT (22.0-30.0) sec Sodium (137-145) mmol/L Potassium (3.5-5.1) mmol/L Chloride (98-107) mmol/L Carbon Dioxide (22-30) mmol/L Anion Gap mmol/L BUN (7-17) mg/dL Creatinine (0.52-1.04) mg/dL Est GFR (CKD-EPI)AfAm (>60 ml/min/1.73 sqM) Est GFR (CKD-EPI)NonAf (>60 ml/min/1.73 sqM) Glucose (74-99) mg/dL Calcium (8.4-10.2) mg/dL Magnesium (1.6-2.3) mg/dL Total Bilirubin (0.2-1.3) mg/dL AST (14-36) U/L ALT (4-34) U/L Alkaline Phosphatase (38-126) U/L Troponin I <0.012 (0.000-0.034) ng/mL Total Protein (6.3-8.2) g/dL Albumin (3.5-5.0) g/dL Coronavirus (PCR) Not Detected (Not Detectd) Disposition Clinical Impression: Unstable angina pectoris Disposition: ADMITTED IP TO THIS [facility] Referrals: Nathanael Nogueira MD [Primary Care Provider] - 1-2 days Time of Disposition: 16:51
[2021-07-18 14:47] LABS: Basophils % (A) 0 %; Eosinophils # (A) 0.2 k/uL (0-0.7); Eosinophils % (A) 2 %; HCT 44.9 % (34.0-46.0); HGB 14.8 gm/dL (11.4-16.0); Lymphocytes # (A) 1.4 k/uL (1.0-4.8); Lymphocytes % (A) 17 %; MCH 33.4 pg (25.0-35.0); MCHC 32.9 g/dL (31.0-37.0); MCV 101.4 fL (80.0-100.0); Mean Platelet Volume 7.5; Monocytes # (A) 0.4 k/uL (0-1.0); Monocytes % (A) 5 %; Neutrophils % (A) 75 %; Platelet Count 225 k/uL (150-450); RBC 4.43 m/uL (3.80-5.40); RDW 12.8 % (11.5-15.5)
[2021-07-18 14:59] LABS: Partial Thromboplastin Time 27.2 sec (22.0-30.0); Prothrombin Time 10.8 sec (9.0-12.0)
[2021-07-18 15:03] LABS: ALT 8 U/L (4-34); AST 19 U/L (14-36); African American GFR (CKD) >90 (>60 ml/min/1.73 sqM); Albumin 3.7 g/dL (3.5-5.0); Alkaline Phosphatase 90 U/L (38-126); Anion Gap 6 mmol/L; Blood Urea Nitrogen 7 mg/dL (7-17); Calcium 8.7 mg/dL (8.4-10.2); Carbon Dioxide 27 mmol/L (22-30); Chloride 108 mmol/L (98-107); Glucose 96 mg/dL (74-99); Non-African American GFR(CKD) >90 (>60 ml/min/1.73 sqM); Potassium 3.8 mmol/L (3.5-5.1); Sodium 141 mmol/L (137-145); Total Bilirubin 0.4 mg/dL (0.2-1.3); Total Protein 6.3 g/dL (6.3-8.2)
--- NOTE | 2021-07-18 15:25 | CT ---
EXAMINATION TYPE: CT brain wo con DATE OF EXAM: 07/18/2021 HISTORY: Intermittent slurred speech CT DLP: 1094.4 mGycm. Automated Exposure Control for Dose Reduction was Utilized. TECHNIQUE: CT scan of the head is performed without contrast. COMPARISON: CT brain 8 days ago and older study August 06, 2020. FINDINGS: There is no acute intracranial hemorrhage or midline shift identified. There is diffuse v entricular and sulcal prominence consistent with mild diffuse cerebral atrophy greatest over the bila teral frontal lobes. Some horizontal artifact on current study is present making evaluation suboptim al. Matrínez-white matter differentiation is fairly well maintained. The globes are intact and the visua lized sinuses are clear. Right-sided nasal ring on current study. IMPRESSION: No acute intracranial hemorrhage or midline shift. No significant change from recent halima or.
--- NOTE | 2021-07-18 15:27 | XR ---
EXAMINATION TYPE: XR chest 2V DATE OF EXAM: 07/18/2021 COMPARISON: Chest x-ray 07/10/2021 HISTORY: Chest pain TECHNIQUE: Frontal and lateral views of the chest are obtained. FINDINGS: There is no focal air space opacity, pleural effusion, or pneumothorax seen. The cardiac silhouette size is stable candidate for differences in technique and rotation. Hyperinflation with f lattening of hemidiaphragms could be indicative of underlying COPD. The osseous structures are remark able for postoperative change in the cervical spine as on prior, there is thoracic spondylosis. There are overlying leads. IMPRESSION: No acute cardiopulmonary process.
[2021-07-18] MEDS ORDERED: HYDROmorphone 0.5 MG/0.5 ML SYRINGE IVP STA ×2 (16:26→18:05)
[2021-07-18] MEDS ORDERED: NITROGLYCERIN SL TABS 0.4 MG TAB SUBLINGUAL PRN ×2 (16:51→17:43)
[2021-07-18] MEDS ORDERED: NON FORMULARY DRUG (Omeprazole [Omeprazole] 20 MG Capsule) PO PRN (17:43)
[2021-07-18] MEDS ORDERED: NICOTINE GUM (POLACRILEX) 2 MG GUM BUCCAL PRN (17:47)
[2021-07-18] MEDS ORDERED: NALOXONE 0.4 MG/ML 1 ML VIAL IV PRN (17:47)
[2021-07-18] MEDS ORDERED: NITROGLYCERIN OINT 1 INCH/GM PACKET TOPICAL SCH (18:00)
--- NOTE | 2021-07-18 18:18 | P.HPIM ---
<Villa Gallegos - Last Filed: 07/18/21 17:50> History of Present Illness H&P Date: 07/18/21 Chief Complaint: Chest pain History of Presenting Illness: Patient is a 61-year-old female with a past medical history of coronary artery disease with previous ID and stent placement on Plavix, angina, hypertension, hyperlipidemia, COPD not on home oxygen dependent, chronic pain disorder, bipolar disorder, anxiety, depression, and nicotine dependence on cigarettes. She presented to the emergency department with a chief complaint of chest pain. Patient reports the development of chest pain at rest earlier today in which she took 2 nitroglycerin tablets with no relief so she came to the emergency department for further evaluation. EKG was completed revealing normal sinus rhythm 64 bpm with no noted T-wave or ST abnormalities showing no signs of acute ischemia. Troponin negative at less than 0.012. CBC and CMP were unremarkable. COVID-19 PCR negative. Chest x-ray negative for acute cardiopulmonary process, showing hyperinflation with flattening of hemidiaphragms consistent with COPD. 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 CT head without contrast revealing no acute intercranial hemorrhage and no noted changes from prior recent CT completed 07/10/21 and 08/06/20. Patient currently reports normal memory at this time and speech is clear. She also reports the chest pain she is experiencing is described as a tightness across her chest almost as if she cannot catch her breath and is typical of her normal angina pain which she reports usually taking a nitro and a Percocet to resolve, however she states she did not take her Percocet and had no improvement from the nitroglycerin. Patient received 1 dose of Dilaudid and Ativan in the emergency department and reports slight improvement in her pain, but did request an additional dose of Ativan to be given secondary to her current feelings of anxiety. Patient denies currently experiencing any headache, lightheadedness, dizziness, changes in her vision or hearing, sore throat or dysphasia, cough or congestion, palpitations, shortness of breath, dyspnea with exertion, abdominal pain, nausea, or experiencing any numbness/tingling/weakness in her extremities. Patient reports smoking one pack a day for greater than 40 years. Patient was admitted under our services for consultation to cardiology. Review of systems: Pertinent positives and negatives as discussed in HPI, a complete review of systems was performed and all other systems are negative. Physical exam: Vital signs reviewed and stable. General: Nontoxic, no distress and appears stated age. Derm: Skin warm and dry, normal coloration for ethnicity. Head: Atraumatic, normocephalic and symmetric. Eyes: EOMs intact, no lid lag, and anicteric sclera Mouth: no lip lesions, mucus membranes moist Cardiovascular: regular rate and rhythm with normal S1S2, no murmur, positive posterior tibial pulses bilaterally, and cap refill < 2 seconds. Lungs: Respirations even, regular, and unlabored on room air. Lungs with significant diffuse expiratory wheezes bilaterally, no rhonchi, rales, or crackles. No accessory muscle usage. Abdominal: Obese abdomen, soft, nontender to palpation, no guarding, no appreciable organomegaly Ext: ROM intact. No gross muscle atrophy, no edema, no contractures Neuro: Speech clear, face symmetrical and CN II-XII grossly intact with no noted focal neuro deficits Psych: Alert and oriented to person, place, time, and situation. Appropriate and pleasant affect. Assessment and Plan of Care: Atypical chest pain described as tightness, rule out ACS History of CAD with stents on Plavix History of Angina Hypertension Hyperlipidemia -Troponin less than 0.012. - EKG was completed revealing normal sinus rhythm 64 bpm with no noted T-wave or ST abnormalities showing no signs of acute ischemia. Troponin negative at less than 0.012. CBC and CMP were unremarkable. -Consult cardiology -Telemetry monitoring -Monitor vital signs -As needed sublingual nitroglycerin for chest pain/tightness -Continuation of daily home medication regimen consisting of Plavix, Imdur, lisinopril, and metoprolol. -We will start patient on DuoNeb's and steroids, as reports of chest tightness likely secondary to COPD as patient with significant diffuse expiratory wheezes -Lipid panel with a.m. labs COPD with acute exacerbation Nicotine dependence on cigarettes smoking one pack a day times greater than 40 years -DuoNeb's 4 times daily -X-ray revealing hyperinflation and flattening of diaphragm consistent with COPD. 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 -Patient to be provided with oxygen supplementation as needed to maintain SpO2 equal to or greater than 90%. Patient currently on room air. -Nicotine patch -Patient educated on importance of smoking cessation and risks associated with continued use. Hypothyroidism Continue daily medication regimen with levothyroxine. Other chronic medical conditions include: chronic pain disorder, bipolar disorder, anxiety, and depression: We will continue patient's daily home medication regimen consisting of Percocet 3 times daily as needed for pain, Xanax 3 times daily as needed for anxiety, Elavil, Seroquel, and Viibryd The patient is admitted with an anticipated greater than 2 midnight stay for evaluation of atypical chest pain, rule out ACS CODE STATUS: Full code DVT prophylaxis: Heparin Discussed with: Patient Anticipated discharge date: Tomorrow Anticipated discharge place: Home A total of 40 minutes was spent on the care of this complex patient more than 50% of the time was spent in counseling and care coordination. Past Medical History Past Medical History: Coronary Artery Disease (CAD), Chest Pain / Angina, Fibromyalgia, Myocardial Infarction ([place]), Osteoarthritis (OA), Thyroid Disorder Additional Past Medical History / Comment(s): interstitial cystitis; Back Pain Last Myocardial Infarction Date:: 2015 History of Any Multi-Drug Resistant Organisms: None Reported Past Surgical History: Back Surgery, Bladder Surgery, Breast Surgery, Heart Catheterization With Stent, Hysterectomy Additional Past Surgical History / Comment(s): bladder stimulator, neck surgery, heart cath with stents in 2013 and 2015 Past Anesthesia/Blood Transfusion Reactions: No Reported Reaction Date of Last Stent Placement:: 2015 Past Psychological History: Anxiety, Bipolar, Depression Smoking Status: Current every day smoker Past Alcohol Use History: None Reported Past Drug Use History: Marijuana Medications and Allergies Home Medications Medication Instructions Recorded Confirmed Type Clopidogrel [Plavix] 75 mg PO DAILY 02/18/14 07/18/21 History Vilazodone HCl [Viibryd] 40 mg PO DAILY 02/18/14 07/18/21 History Amitriptyline HCl [Elavil] 25 mg PO HS 04/06/18 07/18/21 History oxyCODONE-APAP 10-325MG [Percocet 1 tab PO TID PRN 04/06/18 07/18/21 History 10-325 mg] ALPRAZolam [Xanax] 1 mg PO TID PRN 08/06/20 07/18/21 History Oxybutynin Chloride [Ditropan XL] 10 mg PO HS 08/06/20 07/18/21 History QUEtiapine FUMARATE [SEROquel] 300 mg PO HS 08/06/20 07/18/21 History Levothyroxine Sodium [Synthroid] 125 mcg PO DAILY@0630 #30 tab 08/09/20 07/18/21 Rx Isosorbide Mononitrate ER [Imdur] 60 mg PO DAILY 07/10/21 07/18/21 History Metoprolol Succinate (ER) [Toprol 25 mg PO DAILY 07/10/21 07/18/21 History Xl] Nitroglycerin Sl Tabs [Nitrostat] 0.4 mg SUBLINGUAL Q5M PRN 07/10/21 07/18/21 History Omeprazole 20 mg PO DAILY PRN 07/10/21 07/18/21 History Rosuvastatin [Crestor] 10 mg PO HS 07/10/21 07/18/21 History estradioL [Estrace] 1 mg PO DAILY 07/10/21 07/18/21 History lisinopriL [Zestril] 5 mg PO HS 07/10/21 07/18/21 History Pregabalin [Lyrica] 150 mg PO TID 07/18/21 07/18/21 History Allergies Allergy/AdvReac Type Severity Reaction Status Date / Time ciprofloxacin [From Cipro] Allergy Anaphylaxis Verified 07/18/21 17:04 Penicillins Allergy Swelling Verified 07/18/21 17:04 vancomycin Allergy Dyspnea Verified 07/18/21 17:04 ketorolac tromethamine AdvReac Itching Verified 07/18/21 17:04 [From Toradol] NSAIDS (Non-Steroidal AdvReac STOMACH Verified 07/18/21 17:04 Anti-Inflamma ULCER Physical Exam Vitals: Vital Signs Temp Pulse Resp BP Pulse Ox 07/18/21 15:51 64 18 154/78 96 07/18/21 13:44 98 F 67 18 167/91 96 Intake and Output 07/18/21 07/18/21 07/18/21 06:59 14:59 22:59 Other: Weight 72.575 kg Results CBC & Chem 7: 07/18/21 14:28 07/18/21 14:28 Labs: Abnormal Lab Results - Last 24 Hours (Table) 07/18/21 07/18/21 Range/Units 14:28 14:28 MCV 101.4 H (80.0-100.0) fL Chloride 108 H (98-107) mmol/L <Serene White - Last Filed: 07/18/21 18:42> History of Present Illness Patient seen and evaluated by me independently. Patient was also seen by ANNE, the original author of this note. I am in agreement with the subjective, physi goran exam, and assessment and plan as documented with the addition/changes of my exam and assessment below. Gen: awake, alert HEENT: normocephalic, atraumatic, good hearing acuity, moist mucous membranes Resp: Generalized wheezing, no crackles CVS: good distal perfusion x 4, regular rate and rhythm without murmurs GI: soft, NTTP, ND : no SPT, no CVAT, bullard catheter not present MSK: no pitting edema, no clubbing Neuro: non-focal, moving all extremities Psych: cooperative, euthymic mood Plan: Atypical chest pain COPD exacerbation Chronic pain Fibromyalgia -Admit to observation with cardiology consult -Trend troponins -Start Symbicort, DuoNeb's -Prednisone -Azithromycin -Continue home narcotics dose -Continue home anxiolytic dose -Patient was counseled on narcotic cessation Physical Exam Osteopathic Statement: *. No significant issues noted on an osteopathic structural exam other than those noted in the History and Physical/Consult. Vitals: Vital Signs Temp Pulse Resp BP Pulse Ox 07/18/21 17:00 61 16 159/80 94 L 07/18/21 16:30 56 L 15 150/81 92 L 07/18/21 16:00 58 L 19 154/78 91 L 07/18/21 15:51 64 18 154/78 96 07/18/21 15:30 55 L 18 150/85 93 L 07/18/21 15:00 59 L 18 07/18/21 14:32 18 07/18/21 13:44 98 F 67 18 167/91 96 Intake and Output 07/18/21 07/18/21 07/18/21 06:59 14:59 22:59 Other: Weight 72.575 kg Results CBC & Chem 7: 07/18/21 14:28 07/18/21 14:28 Labs: Abnormal Lab Results - Last 24 Hours (Table) 07/18/21 07/18/21 Range/Units 14:28 14:28 MCV 101.4 H (80.0-100.0) fL Chloride 108 H (98-107) mmol/L
[2021-07-18 18:55] LABS: Appearance,Urine Clear (Clear); Bilirubin,Urine Negative (Negative); Blood,Urine Negative (Negative); Color,Urine Light Yellow; Glucose,Urine (UA) Negative (Negative); Ketones,Urine Negative (Negative); Leukocyte Esterase,Urine Negative (Negative); Nitrite,Urine Negative (Negative); Protein,Urine Negative (Negative); Specific Gravity,Urine 1.007 (1.001-1.035); Urobilinogen,Urine <2.0 mg/dL (<2.0)
[2021-07-18] MEDS ORDERED: lisinopriL 5 MG TAB PO SCH (21:00)
[2021-07-18] MEDS ORDERED: ATORVASTATIN 20 MG TAB PO SCH (21:00)
[2021-07-18] MEDS: AZITHROMYCIN 500 MG TAB PO SCH (21:11)
[2021-07-18] MEDS: AMITRIPTYLINE HCL 25 MG TAB PO SCH (21:11)
[2021-07-18] MEDS: predniSONE 50 MG TAB PO SCH (21:11)
[2021-07-18] MEDS: QUEtiapine 100 MG TAB PO SCH (21:13)
[2021-07-18] MEDS: OXYBUTYNIN 10 MG TAB.ER.24 PO SCH (21:13)
[2021-07-18] MEDS: IPRATROPIUM-ALBUTEROL 3 ML NEB INHALATION SCH (21:49)
[2021-07-18] MEDS: SYMBICORT 80-4.5 MCG INHALER INHALATION SCH (21:49)
[2021-07-18] MEDS: ALPRAZolam 1 MG TAB PO PRN (22:22)
[2021-07-18] MEDS: PREGABALIN 75 MG CAP PO SCH (22:22)
[2021-07-18] MEDS: HEPARIN SODIUM,PORCINE/PF 5,000 UNIT/0.5 ML SYRINGE SQ SCH (23:35)
[2021-07-19] MEDS: LEVOTHYROXINE 125 MCG TAB PO SCH (06:03)
[2021-07-19] MEDS: oxyCODONE-APAP 10-325MG 1 EACH TAB PO PRN ×3 (06:05→21:19)
[2021-07-19 06:41] LABS: African American GFR (CKD) >90 (>60 ml/min/1.73 sqM); Anion Gap 8 mmol/L; Blood Urea Nitrogen 11 mg/dL (7-17); Calcium 9.1 mg/dL (8.4-10.2); Carbon Dioxide 25 mmol/L (22-30); Chloride 108 mmol/L (98-107); Glucose 143 mg/dL (74-99); Non-African American GFR(CKD) >90 (>60 ml/min/1.73 sqM); Potassium 4.1 mmol/L (3.5-5.1); Sodium 141 mmol/L (137-145)
[2021-07-19] MEDS: IPRATROPIUM-ALBUTEROL 3 ML NEB INHALATION SCH ×4 (07:40→20:02)
[2021-07-19] MEDS: SYMBICORT 80-4.5 MCG INHALER INHALATION SCH ×2 (07:40→20:02)
[2021-07-19] MEDS: CLOPIDOGREL 75 MG TAB PO SCH (08:01)
[2021-07-19] MEDS: ALPRAZolam 1 MG TAB PO PRN ×2 (08:01→14:04)
[2021-07-19] MEDS: AZITHROMYCIN 500 MG TAB PO SCH (08:02)
[2021-07-19] MEDS: NICOTINE 21MG/24HR PATCH TRANSDERM SCH (08:02)
[2021-07-19] MEDS: predniSONE 50 MG TAB PO SCH (08:02)
[2021-07-19] MEDS: PANTOPRAZOLE 40 MG TABLET PO SCH (08:02)
[2021-07-19] MEDS: HEPARIN SODIUM,PORCINE/PF 5,000 UNIT/0.5 ML SYRINGE SQ SCH ×2 (08:02→15:42)
[2021-07-19] MEDS: PREGABALIN 75 MG CAP PO SCH ×3 (08:02→21:18)
[2021-07-19] MEDS: Vilazodone Hcl [Viibryd] 40 MG Tablet PO SCH (08:06)
[2021-07-19] MEDS ORDERED: ASPIRIN 325 MG TAB PO STA (08:42)
[2021-07-19] MEDS ORDERED: ATORVASTATIN 80 MG TAB PO STA (08:42)
[2021-07-19] MEDS ORDERED: SODIUM CHLORIDE 0.9% 1,000 ML IV SCH ×2 (08:45→12:30)
[2021-07-19] MEDS: ISOSORBIDE MONONITRATE ER 60 MG TAB.ER.24H PO SCH (08:53)
[2021-07-19] MEDS: lisinopriL 5 MG TAB PO SCH (08:53)
[2021-07-19] MEDS: METOPROLOL SUCCINATE (ER) 25 MG TAB.ER.24H PO SCH (08:53)
[2021-07-19] MEDS ORDERED: ASPIRIN 325 MG TAB PO SCH (09:00)
[2021-07-19] MEDS ORDERED: ASPIRIN 81 MG PO SCH (09:00)
[2021-07-19] MEDS ORDERED: predniSONE 50 MG TAB PO SCH (09:00)
[2021-07-19 09:33] LABS: Basophils # (A) 0.02 X 10*3/uL (0.00-0.10); Basophils % (A) 0.3 %; Eosinophils # (A) 0.01 X 10*3/uL (0.04-0.35); Eosinophils % (A) 0.1 %; HCT 49.2 % (37.2-46.3); HGB 15.9 g/dL (12.0-15.0); Lymphocytes # (A) 0.69 X 10*3/uL (0.90-5.00); Lymphocytes % (A) 9.5 %; MCH 32.7 pg (27.0-32.0); MCHC 32.3 g/dL (32.0-37.0); MCV 101.2 fL (80.0-97.0); Mean Platelet Volume 10.9 fL (9.5-12.2); Monocytes # (A) 0.07 X 10*3/uL (0.20-1.00); Neutrophils # (A) 6.44 X 10*3/uL (1.80-7.70); Neutrophils % (A) 88.5 %; Platelet Count 227 X 10*3/uL (140-440); RBC 4.86 X 10*6/uL (4.10-5.20); RDW 13.1 % (11.5-14.5); WBC 7.27 X 10*3/uL (4.50-10.00)
--- NOTE | 2021-07-19 10:17 | P.CRDCN ---
History of Present Illness History of present illness: Patient is a 61-year-old female with a past medical history of coronary artery disease with previous NV and previous stent placement to RCA in 01/2014, PCI LAD in 10/2018 and PCI LAD in 09/2020, hypertension, hyperlipidemia, COPD, chronic pain disorder, bipolar disorder, anxiety, depression, and nicotine dependence on cigarettes, bladder stimulator placed. She follows with Dr. Dobbs post acute care nurse practitioner. She presents to the emergency department with chest pain. She states she has been having on and off chest pain for 2 months. She has associated shortness of breath, dyspnea on exertion and diaphoresis. Her pain is midsternal and left sided. She describes it as a tightness. She states it is difficult to take a deep breath. She denies radiation. It is exertional. Pain is aggravated by exert ion. Alleviated by resting. She denies nausea, palpitations, lightheadedness, dizziness or syncope. She states she continues status post cigarettes one pack per day. She denies any alcohol use. Addition to her chest pain chest reports having increased episodes of slurred speech and memory loss and also difficulty walking. She states these episodes are brief and then subside. She underwent a CT brain 07/10/2021 in 08/06/2020 and 07/18/21 which revealed no acute intracranial abnormality. DIAGNOSTICS EKG this morning reveals sinus bradycardia, heart rate 54, ST depression in leads inferior leads and lead V5 and V6 that is new from EKG yesterday EKG on admission reveals sinus rhythm, heart rate 64, mild ST depression in inferior leads. Chest xray no acute cardiopulmonary process Telemetry tracings indicate sinus mechanism Laboratory reviewed, troponin negative 3, sodium 141, potassium 4.1, BUN 11, serum creatinine 0.6, UA negative, COVID-19 PCR negative, WBC 7.2, hemoglobin 15, platelets 227 Most recent echo 08/2020 revealed EF of 60-65%, RV is mildly enlarged, moderate regurgitation, mild mitral regurgitation, tricuspid regurgitation. Current home cardiac medications include Plavix 75 mg daily, Crestor 10 mg nightly, lisinopril 5 mg nightly, when necessary nitro, metoprolol succinate 25 mg daily, Imdur 60 mg daily,. Patient is also taking narcotic, estradiol, omeprazole, Synthroid, amitriptyline, Xanax. REVIEW OF SYSTEMS At the time of my exam: CONSTITUTIONAL: Denies fever or chills. Positive diaphoresis CARDIOVASCULAR: + chest pain, positive shortness of breath denies orthopnea, PND, palpitations RESPIRATORY: Denies cough. GASTROINTESTINAL: Denies abdominal pain, diarrhea, constipation, nausea or vomiting. MUSCULOSKELETAL: Denies myalgias. NEUROLOGIC: Denies numbness, tingling, headache or weakness. ENDOCRINE: Denies fatigue, weight change, polydipsia or polyurina. GENITOURINARY: Denies burning, hematuria or urgency with micturation. HEMATOLOGIC: Denies history of anemia or bleeding. PHYSICAL EXAMINATION CONSTITUTIONAL: No apparent distress. HEENT: Head is normocephalic. Pupils are equal, round. Sclerae anicteric. Mucous membranes of the mouth are moist. No JVD. No carotid bruit. CHEST EXAMINATION: Lungs are clear to auscultation. No chest wall tenderness is noted on palpation or with deep breathing. HEART EXAMINATION: Regular rate and rhythm. S1, S2 heard. ABDOMEN: Soft, nontender. Positive bowel sounds. EXTREMITIES: 2+ peripheral pulses, no lower extremity edema and no calf tenderness. SKIN: intact NEUROLOGIC EXAMINATION: Patient is awake, alert and oriented x3. ASSESSMENT Chest pain, with EKG changes concerning for ischemia History of coronary artery disease with previous PCI to the RCA in 2013, LAD in 2019 and LAD again in 2020 Hypertension Hyperlipidemia COPD History of bipolar disorder History of depression, history of anxiety Chronic nicotine dependence Bladder Stimulator placed PLAN -We recommend cardiac catheterization at this time. Patient is agreeable. -Start IV fluids -Continue home cardiac medications -Obtain 2D echocardiogram -I have discussed the risks, benefits and alternative therapies for the above-mentioned procedure and for both sedation/analgesia as well as necessary blood product administration, if indicated, as they pertain to this patient. The patient has indicated understanding and acceptance of the risks and procedures discussed. Questions have been answered appropriately and he is agreeable to move forward with the above-stated procedure. -Further recommendations based on clinical course Nurse Practitioner note has been reviewed, I agree with a documented findings and plan of care. Patient was seen and examined. Past Medical History Past Medical History: Coronary Artery Disease (CAD), Chest Pain / Angina, Fibromyalgia, Myocardial Infarction (NV), Osteoarthritis (OA), Thyroid Disorder Additional Past Medical History / Comment(s): interstitial cystitis; Back Pain Last Myocardial Infarction Date:: 2015 History of Any Multi-Drug Resistant Organisms: None Reported Past Surgical History: Back Surgery, Bladder Surgery, Breast Surgery, Heart Catheterization With Stent, Hysterectomy Additional Past Surgical History / Comment(s): bladder stimulator, neck surgery, heart cath with stents in 2013 and 2015 Past Anesthesia/Blood Transfusion Reactions: No Reported Reaction Date of Last Stent Placement:: 2015 Past Psychological History: Anxiety, Bipolar, Depression Smoking Status: Current every day smoker Past Alcohol Use History: None Reported Additional Past Alcohol Use History / Comment(s): smokes daily and somkes marijuana Past Drug Use History: Marijuana Additional Drug Use History / Comment(s): smokes every evening Medications and Allergies Home Medications Medication Instructions Recorded Confirmed Type Clopidogrel [Plavix] 75 mg PO DAILY 02/18/14 07/18/21 History Vilazodone HCl [Viibryd] 40 mg PO DAILY 02/18/14 07/18/21 History Amitriptyline HCl [Elavil] 25 mg PO HS 04/06/18 07/18/21 History oxyCODONE-APAP 10-325MG [Percocet 1 tab PO TID PRN 04/06/18 07/18/21 History 10-325 mg] ALPRAZolam [Xanax] 1 mg PO TID PRN 08/06/20 07/18/21 History Oxybutynin Chloride [Ditropan XL] 10 mg PO HS 08/06/20 07/18/21 History QUEtiapine FUMARATE [SEROquel] 300 mg PO HS 08/06/20 07/18/21 History Levothyroxine Sodium [Synthroid] 125 mcg PO DAILY@0630 #30 tab 08/09/20 07/18/21 Rx Isosorbide Mononitrate ER [Imdur] 60 mg PO DAILY 07/10/21 07/18/21 History Metoprolol Succinate (ER) [Toprol 25 mg PO DAILY 07/10/21 07/18/21 History Xl] Nitroglycerin Sl Tabs [Nitrostat] 0.4 mg SUBLINGUAL Q5M PRN 07/10/21 07/18/21 History Omeprazole 20 mg PO DAILY PRN 07/10/21 07/18/21 History Rosuvastatin [Crestor] 10 mg PO HS 07/10/21 07/18/21 History estradioL [Estrace] 1 mg PO DAILY 07/10/21 07/18/21 History lisinopriL [Zestril] 5 mg PO HS 07/10/21 07/18/21 History Pregabalin [Lyrica] 150 mg PO TID 07/18/21 07/18/21 History Allergies Allergy/AdvReac Type Severity Reaction Status Date / Time ciprofloxacin [From Cipro] Allergy Anaphylaxis Verified 07/18/21 17:04 Penicillins Allergy Swelling Verified 07/18/21 17:04 vancomycin Allergy Dyspnea Verified 07/18/21 17:04 ketorolac tromethamine AdvReac Itching Verified 07/18/21 17:04 [From Toradol] NSAIDS (Non-Steroidal AdvReac STOMACH Verified 07/18/21 17:04 Anti-Inflamma ULCER Physical Exam Vitals: Vital Signs Temp Pulse Pulse Resp BP BP Pulse Ox 07/19/21 02:00 97.9 F 58 L 18 133/67 93 L 07/18/21 22:15 98.0 F 54 L 18 152/82 94 L 07/18/21 21:16 65 18 155/83 95 07/18/21 19:00 73 18 166/81 96 07/18/21 18:00 58 L 16 153/86 95 07/18/21 17:30 65 18 140/83 94 L 07/18/21 17:00 61 16 159/80 94 L 07/18/21 16:30 56 L 15 150/81 92 L 07/18/21 16:00 58 L 19 154/78 91 L 07/18/21 15:51 64 18 154/78 96 07/18/21 15:30 55 L 18 150/85 93 L 07/18/21 15:00 59 L 18 07/18/21 14:32 18 07/18/21 13:44 98 F 67 18 167/91 96 Intake and Output 07/18/21 07/19/21 07/19/21 22:59 06:59 14:59 Intake Total 10 Balance 10 Intake: IV 10 Invasive Line 1 10 Other: Voiding Method Toilet Toilet # Voids 1 1 Weight 72.575 kg Results 07/19/21 05:55 07/19/21 05:55 Cardiac Enzymes 07/18/21 07/18/21 07/18/21 Range/Units 14:28 14:28 18:31 AST 19 (14-36) U/L Troponin I <0.012 <0.012 (0.000-0.034) ng/mL 07/18/21 Range/Units 21:02 AST (14-36) U/L Troponin I <0.012 (0.000-0.034) ng/mL Coagulation 07/18/21 Range/Units 14:28 PT 10.8 (9.0-12.0) sec APTT 27.2 (22.0-30.0) sec CBC 07/18/21 Range/Units 14:28 WBC 8.0 (3.8-10.6) k/uL RBC 4.43 (3.80-5.40) m/uL Hgb 14.8 (11.4-16.0) gm/dL Hct 44.9 (34.0-46.0) % Plt Count 225 (150-450) k/uL Comprehensive Metabolic Panel 07/18/21 07/19/21 Range/Units 14:28 05:55 Sodium 141 141 (137-145) mmol/L Potassium 3.8 4.1 (3.5-5.1) mmol/L Chloride 108 H 108 H (98-107) mmol/L Carbon Dioxide 27 25 (22-30) mmol/L BUN 7 11 (7-17) mg/dL Creatinine 0.67 0.67 (0.52-1.04) mg/dL Glucose 96 143 H (74-99) mg/dL Calcium 8.7 9.1 (8.4-10.2) mg/dL AST 19 (14-36) U/L ALT 8 (4-34) U/L Alkaline Phosphatase 90 (38-126) U/L Total Protein 6.3 (6.3-8.2) g/dL Albumin 3.7 (3.5-5.0) g/dL Current Medications Generic Name Dose Route Start Last Admin Trade Name Freq PRN Reason Stop Dose Admin Albuterol/Ipratropium 3 ml 07/18/21 20:00 07/19/21 07:40 Ipratropium-Albuterol 3 Ml Neb INHALATION 3 ml RT-QID JOHNSON Administration Alprazolam 1 mg 07/18/21 17:43 07/18/21 22:22 Alprazolam 1 Mg Tab PO 1 mg TID PRN Administration Anxiety Amitriptyline HCl 25 mg 07/18/21 21:00 07/18/21 21:11 Amitriptyline Hcl 25 Mg Tab PO 25 mg HS [facility] Administration Aspirin 81 mg 07/19/21 09:00 Aspirin 81 Mg PO DAILY [facility] Atorvastatin Calcium 20 mg 07/18/21 21:00 07/18/21 21:11 Atorvastatin 20 Mg Tab PO 20 mg HS [facility] Administration Azithromycin 500 mg 07/18/21 18:45 07/18/21 21:11 Azithromycin 500 Mg Tab PO 500 mg DAILY [facility] Administration Budesonide/Formoterol Fumarate 2 puff 07/18/21 20:00 07/19/21 07:40 Symbicort 80-4.5 Mcg Inhaler INHALATION 2 puff RT-BID [facility] Administration Clopidogrel Bisulfate 75 mg 07/19/21 09:00 Clopidogrel 75 Mg Tab PO DAILY [facility] Estradiol 1 mg 07/19/21 09:00 Estradiol 0.5 Mg Tab PO DAILY [facility] Heparin Sodium (Porcine) 5,000 unit 07/19/21 00:00 07/18/21 23:35 Heparin Sodium,Porcine/Pf 5,000 Unit/0.5 Ml Syringe SQ 5,000 unit Q8HR [facility] Administration Isosorbide Mononitrate 60 mg 07/19/21 09:00 Isosorbide Mononitrate Er 60 Mg Tab.Er.24h PO DAILY [facility] Levothyroxine Sodium 125 mcg 07/19/21 06:30 07/19/21 06:03 Levothyroxine 125 Mcg Tab PO 125 mcg DAILY@0630 [facility] Administration Lisinopril 5 mg 07/18/21 21:00 07/18/21 21:11 Lisinopril 5 Mg Tab PO 5 mg HS [facility] Administration Metoprolol Succinate 25 mg 07/19/21 09:00 Metoprolol Succinate (Er) 25 Mg Tab.Er.24h PO DAILY [facility] Naloxone HCl 0.2 mg 07/18/21 17:47 Naloxone 0.4 Mg/Ml 1 Ml Vial IV Q2M PRN Opioid Reversal Nicotine 1 patch 07/19/21 09:00 Nicotine 21mg/24hr Patch TRANSDERM DAILY [facility] Nicotine Polacrilex 2 mg 07/18/21 17:47 Nicotine Gum (Polacrilex) 2 Mg Gum BUCCAL Q2HR PRN Nicotine Cravings Nitroglycerin 0.4 mg 07/18/21 17:43 Nitroglycerin Sl Tabs 0.4 Mg Tab SUBLINGUAL Q5M PRN Chest Pain Vilazodone Hcl [ 40 mg 07/19/21 09:00 Viibryd] 40 Mg PO Tablet DAILY [facility] Oxybutynin Chloride 10 mg 07/18/21 21:00 07/18/21 21:13 Oxybutynin 10 Mg Tab.Er.24 PO 10 mg HS [facility] Administration Oxycodone/Acetaminophen 1 each 07/18/21 17:43 07/19/21 06:05 Oxycodone-Apap 10-325mg 1 Each Tab PO 1 each TID PRN Administration Pain Pantoprazole Sodium 40 mg 07/19/21 07:30 Pantoprazole 40 Mg Tablet PO AC-BRKFST JOHNSON Prednisone 50 mg 07/18/21 18:30 07/18/21 21:11 Prednisone 50 Mg Tab PO 07/22/21 09:01 50 mg DAILY [facility] Administration Pregabalin 150 mg 07/18/21 22:00 07/18/21 22:22 Pregabalin 75 Mg Cap PO 150 mg TID [facility] Administration Quetiapine Fumarate 300 mg 07/18/21 21:00 07/18/21 21:13 Quetiapine 100 Mg Tab PO 300 mg HS [facility] Administration Intake and Output 07/18/21 07/19/21 07/19/21 22:59 06:59 14:59 Intake Total 10 Balance 10 Intake: IV 10 Invasive Line 1 10 Other: Voiding Method Toilet Toilet # Voids 1 1 Weight 72.575 kg 07/18/21 14:28 07/19/21 05:55
[2021-07-19] MEDS ORDERED: LIDOCAINE 1% INJ 10MG/ML (20 ML MDV) ONE (11:37)
[2021-07-19] MEDS ORDERED: VERAPAMIL 2.5 MG/ML 2 ML AMP ONE (11:37)
[2021-07-19] MEDS ORDERED: fentaNYL (PF) 50 MCG/ML 2 ML AMP ONE (11:43)
[2021-07-19] MEDS ORDERED: HEPARIN SODIUM 1,000 UN/ML (10ML VL) ONE (11:44)
[2021-07-19] MEDS ORDERED: MIDAZOLAM 2 MG/2 ML VIAL IV ONE ×4 (11:45→11:57)
[2021-07-19] MEDS ORDERED: fentaNYL (PF) 50 MCG/ML 2 ML AMP IV ONE (11:45)
[2021-07-19] MEDS ORDERED: LIDOCAINE 1% INJ 10MG/ML (20 ML MDV) SQ ONE (11:48)
[2021-07-19] MEDS ORDERED: VERAPAMIL SYRINGE (5 MG/10 ML) INTRAARTER ONE (11:50)
[2021-07-19] MEDS ORDERED: HEPARIN SODIUM 1,000 UN/ML (10ML VL) IV ONE (11:52)
[2021-07-19 12:20] LABS: Chol/HDL Ratio 3.86 Ratio; LDL Cholesterol,Calculated 123.5 mg/dL (0.0-131.0)
[2021-07-19] MEDS ORDERED: IOPAMIDOL-370 100ML BTL INJ ONE (12:20)
[2021-07-19] MEDS ORDERED: IV FLUID CONTINUATION 1,000 ML IV ONE (12:21)
--- NOTE | 2021-07-19 12:43 | CC ---
CARDIAC CATHETERIZATION REPORT DATE OF SERVICE: 07/19/2021 PROCEDURE: Left heart catheterization and coronary angiography. PERFORMED BY: Dr. Breanne Dorantes. Assisted by Dr. Talamantes. CLINICAL INFORMATION: Adeline Christiansen is a 61-year-old lady with a history of smoking, hypertension, hyperlipidemia and chronic pain syndrome. She also has history of CAD and underwent stenting of a very dominant RCA in 2013. Stenting of RCA was performed here in [facility]. After that in 2018 and 2019 she had stenting of the LAD performed. She is here with significant symptoms of unstable angina and some EKG changes and therefore was advised cardiac cath after due discussion regarding risks, benefits and options. PROCEDURE NOTE: Under local anesthesia and strict aseptic precautions, a 6-Croatian introducer was placed in the right radial artery. Using a JL3.0 and JR4 catheters, we performed coronary angiography and also checked LV pressures but did not do an LV gram. The sheath was taken out and TR band applied as per protocol. Saturation in the fingers of the right hand was more than 93%. Results were discussed with the patient and her daughter. CARDIAC CATHETERIZATION FINDINGS: The left ventricular end-diastolic pressure was about 10-12 mmHg without any gradient across aortic valve. CORONARY ANGIOGRAPHY FINDINGS: RIGHT CORONARY ARTERY: This are a large dominant vessel which has a stent in the proximal portion which is widely patent with good flow. Vessel is quite large, more than about 4.5 cm, and super dominant. It bifurcates into a large PDA and PLV, both of which have minor irregularities. No significant disease. LEFT MAIN CORONARY ARTERY: Short, patent, disease-free vessel that bifurcates into LAD and circumflex. LEFT ANTERIOR DESCENDING CORONARY ARTERY: Good-caliber vessel extends along the anterior wall. The stented segment is widely patent. From the stented segment in the proximal aspect comes off a diagonal that is of good size. The flow in the diagonal is brisk. There is about a 60% to 70% lesion in the diagonal as it comes off from the LAD, but the flow in the diagonal is excellent, as it is in the LAD. In the mid portion of the body of the diagonal also there is another area of narrowing of about 30% to 40%. The LAD therefore is widely patent and has no significant restenosis, but the diagonal that comes off at the proximal end of the stent has about a 60% to 70% narrowing with brisk flow. LEFT POSTERIOR CIRCUMFLEX CORONARY ARTERY: Nondominant vessel gives off a good-sized obtuse marginal that runs laterally. Caliber is good. Distribution is fair. No significant disease in circumflex. Left ventriculogram was not performed. FINAL IMPRESSION: This patient has a right-dominant system. No significant disease in the mid RCA that was stented and in the mid LAD that was stented in the past. There is a diagonal that comes off from the proximal end of the LAD stent, and this has an ostial lesion of about 60% to 70% with brisk flow. Circumflex is nondominant, free of significant disease. LV pressures are normal and no gradient across aortic valve. RECOMMENDATION: Continued medical therapy with smoking cessation and risk factor modification was advised. Patient can be discharged tomorrow and I will see her in the office next week. MMODL / IJN: [id number] /
--- NOTE | 2021-07-19 16:20 | P.PN ---
<Villa Gallegos - Last Filed: 07/19/21 16:12> Subjective Progress Note Date: 07/19/21 History of Presenting Illness: Patient is a 61-year-old female with a past medical history of coronary artery disease with previous ND and stent placement on Plavix, angina, hypertension, hyperlipidemia, COPD not on home oxygen dependent, chronic pain disorder, bipolar disorder, anxiety, depression, and nicotine dependence on cigarettes. She presented to the emergency department with a chief complaint of chest pain. Patient reports the development of chest pain at rest earlier today in which she took 2 nitroglycerin tablets with no relief so she came to the emergency department for further evaluation. EKG was completed revealing normal sinus rhythm 64 bpm with no noted T-wave or ST abnormalities showing no signs of acute ischemia. Troponin negative at less than 0.012. CBC and CMP were unremarkable. COVID-19 PCR negative. Chest x-ray negative for acute cardiopulmonary process, showing hyperinflation with flattening of hemidiaphragms consistent with COPD. 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 CT head without contrast revealing no acute intercranial hemorrhage and no noted changes from prior recent CT completed 07/10/21 and 08/06/20. Patient currently reports normal memory at this time and speech is clear. She also reports the chest pain she is experiencing is described as a tightness across her chest almost as if she cannot catch her breath and is typical of her normal angina pain which she reports usually taking a nitro and a Percocet to resolve, however she states she did not take her Percocet and had no improvement from the nitroglycerin. Patient received 1 dose of Dilaudid and Ativan in the emergency department and reports slight improvement in her pain, but did request an additional dose of Ativan to be given secondary to her current feelings of anxiety. Patient denies currently experiencing any headache, lightheadedness, dizziness, changes in her vision or hearing, sore throat or dysphasia, cough or congestion, palpitations, shortness of breath, dyspnea with exertion, abdominal pain, nausea, or experiencing any numbness/tingling/weakness in her extremities. Patient reports smoking one pack a day for greater than 40 years. Patient was admitted under our services for consultation to cardiology. 07/19/21: Patient seen and fully evaluated at bedside this morning. She was sitting up at the edge of bed reports intermittent chest tightness when taking a deep breath otherwise denies having any chest pain at rest, palpitations, nausea, vomiting, or any other complaints. Patient talking on the phone with her family updating them on plan of care. Cardiology planning to take patient for cardiac cath today at noon. Troponins were trended all less than 0.012. Lipid profile showing no significant abnormalities. CBC and BMP unremarkable. Physical exam: Vital signs reviewed and stable. General: Nontoxic, no distress and appears stated age. Derm: Skin warm and dry, normal coloration for ethnicity. Head: Atraumatic, normocephalic and symmetric. Eyes: EOMs intact, no lid lag, and anicteric sclera Mouth: no lip lesions, mucus membranes moist Cardiovascular: regular rate and rhythm with normal S1S2, no murmur, positive posterior tibial pulses bilaterally, and cap refill < 2 seconds. Lungs: Respirations even, regular, and unlabored on room air. Lungs with soft diffuse expiratory wheezes bilaterally, no rhonchi, rales, or crackles. No accessory muscle usage. Abdominal: Obese abdomen, soft, nontender to palpation, no guarding, no appreciable organomegaly Ext: ROM intact. No gross muscle atrophy, no edema, no contractures Neuro: Speech clear, face symmetrical and CN II-XII grossly intact with no noted focal neuro deficits Psych: Alert and oriented to person, place, time, and situation. Appropriate and pleasant affect. Assessment and Plan of Care: Atypical chest pain described as tightness, likely secondary to pleurisy however we will rule out ACS History of CAD with stents on Plavix History of Angina Hypertension Hyperlipidemia -Troponin less than 0.012 3 draws - EKG was completed revealing normal sinus rhythm 64 bpm with no noted T-wave or ST abnormalities showing no signs of acute ischemia. -Cardiology following, taking patient for cardiac cath this afternoon. -Telemetry monitoring -Monitor vital signs -As needed sublingual nitroglycerin for chest pain/tightness -Continuation of daily home medication regimen consisting of Plavix, Imdur, lisinopril, and metoprolol. -We will start patient on DuoNeb's and steroids, as reports of chest tightness believed to be secondary to pleurisy from COPD as patient with significant diffuse expiratory wheezes -Lipid profile normal findings. COPD with acute exacerbation Nicotine dependence on cigarettes smoking one pack a day times greater than 40 years -DuoNeb's 4 times daily -X-ray revealing hyperinflation and flattening of diaphragm consistent with COPD. -Prednisone 50 mg daily 5 days -Recommend follow up outpatient with pulmonology to establish care with legislative aide and for PFTs upon discharge. -Patient to be provided with oxygen supplementation as needed to maintain SpO2 equal to or greater than 90%. Patient currently on room air. -Nicotine patch -Patient educated on importance of smoking cessation and risks associated with continued use. Hypothyroidism Continue daily medication regimen with levothyroxine. Other chronic medical conditions include: chronic pain disorder, bipolar disorder, anxiety, and depression: We will continue patient's daily home medication regimen consisting of Percocet 3 times daily as needed for pain, Xanax 3 times daily as needed for anxiety, Elavil, Seroquel, and Viibryd CODE STATUS: Full code DVT prophylaxis: Heparin Discussed with: Patient and RN Anticipated discharge date: Later this evening vs Tomorrow Anticipated discharge place: Home A total of 45 minutes was spent on the care of this complex patient more than 50% of the time was spent in counseling and care coordination. Objective - Vital Signs Vital signs: Vital Signs Temp 97.8 F 07/19/21 15:00 Pulse 82 07/19/21 15:42 Resp 18 07/19/21 15:16 BP 146/71 07/19/21 15:16 Pulse Ox 90 L 07/19/21 15:16 Intake & Output 07/18/21 07/19/21 07/19/21 18:59 06:59 18:59 Intake Total 10 800 Balance 10 800 Weight 72.575 kg 72.575 kg Intake: IV 10 800 Invasive Line 1 10 Sodium Chloride 0.9% 1, 600 000 ml @ 75 mls/hr IV . [id number] ON LICENSE OF [facility] Rx#:[id number] Other: Voiding Method Toilet Toilet # Voids 1 - Labs CBC & Chem 7: 07/19/21 05:55 07/19/21 05:55 Labs: Abnormal Lab Results - Last 24 Hours (Table) 07/19/21 07/19/21 Range/Units 05:55 05:55 Hgb 15.9 H (12.0-15.0) g/dL Hct 49.2 H (37.2-46.3) % MCV 101.2 H (80.0-97.0) fL MCH 32.7 H (27.0-32.0) pg Lymphocytes # 0.69 L (0.90-5.00) X 10*3/uL Monocytes # 0.07 L (0.20-1.00) X 10*3/uL Eosinophils # 0.01 L (0.04-0.35) X 10*3/uL Chloride 108 H (98-107) mmol/L Glucose 143 H (74-99) mg/dL <ChristopherSerene - Last Filed: 07/19/21 17:12> Subjective I reviewed the documentation as provided by the ANNE above, who is the original author of this note. I agree with the documented assessment and plan, with the following changes: None Objective - Vital Signs Vital signs: Vital Signs Temp 97.8 F 07/19/21 15:00 Pulse 73 07/19/21 16:16 Resp 18 07/19/21 16:16 BP 99/54 07/19/21 16:16 Pulse Ox 93 L 07/19/21 16:16 Intake & Output 07/18/21 07/19/21 07/19/21 18:59 06:59 18:59 Intake Total 10 800 Balance 10 800 Weight 72.575 kg 72.575 kg Intake: IV 10 800 Invasive Line 1 10 Sodium Chloride 0.9% 1, 600 000 ml @ 75 mls/hr IV . [id number] ON LICENSE OF [facility] Rx#:[id number] Other: Voiding Method Toilet Toilet # Voids 1 - Labs CBC & Chem 7: 07/19/21 05:55 07/19/21 05:55 Labs: Abnormal Lab Results - Last 24 Hours (Table) 07/19/21 07/19/21 Range/Units 05:55 05:55 Hgb 15.9 H (12.0-15.0) g/dL Hct 49.2 H (37.2-46.3) % MCV 101.2 H (80.0-97.0) fL MCH 32.7 H (27.0-32.0) pg Lymphocytes # 0.69 L (0.90-5.00) X 10*3/uL Monocytes # 0.07 L (0.20-1.00) X 10*3/uL Eosinophils # 0.01 L (0.04-0.35) X 10*3/uL Chloride 108 H (98-107) mmol/L Glucose 143 H (74-99) mg/dL
[2021-07-19] MEDS: OXYBUTYNIN 10 MG TAB.ER.24 PO SCH (21:17)
[2021-07-19] MEDS: QUEtiapine 100 MG TAB PO SCH (21:18)
[2021-07-19] MEDS: AMITRIPTYLINE HCL 25 MG TAB PO SCH (21:18)
[2021-07-20] MEDS: HEPARIN SODIUM,PORCINE/PF 5,000 UNIT/0.5 ML SYRINGE SQ SCH ×4 (00:33→23:25)
[2021-07-20] MEDS: ALPRAZolam 1 MG TAB PO PRN ×2 (00:35→21:14)
[2021-07-20] MEDS: oxyCODONE-APAP 10-325MG 1 EACH TAB PO PRN ×3 (04:53→21:14)
[2021-07-20] MEDS: LEVOTHYROXINE 125 MCG TAB PO SCH (06:20)
[2021-07-20] MEDS ORDERED: HEPARIN SODIUM,PORCINE 2,500 UNIT in SODIUM CHLORIDE 0.9% 250 ML IRRIGATION PRN (07:00)
[2021-07-20] MEDS ORDERED: HEPARIN SODIUM,PORCINE 10,000 UNIT in SODIUM CHLORIDE 0.9% 1,000 ML IRRIGATION PRN (07:00)
[2021-07-20] MEDS: IPRATROPIUM-ALBUTEROL 3 ML NEB INHALATION SCH ×4 (07:20→20:14)
[2021-07-20] MEDS: SYMBICORT 80-4.5 MCG INHALER INHALATION SCH ×2 (07:21→20:14)
[2021-07-20 07:24] LABS: African American GFR (CKD) >90 (>60 ml/min/1.73 sqM); Anion Gap 4 mmol/L; Blood Urea Nitrogen 12 mg/dL (7-17); Calcium 8.3 mg/dL (8.4-10.2); Carbon Dioxide 28 mmol/L (22-30); Chloride 106 mmol/L (98-107); Glucose 117 mg/dL (74-99); Non-African American GFR(CKD) >90 (>60 ml/min/1.73 sqM); Potassium 3.6 mmol/L (3.5-5.1); Sodium 138 mmol/L (137-145)
[2021-07-20] MEDS: ASPIRIN 81 MG PO SCH (08:57)
[2021-07-20] MEDS: PANTOPRAZOLE 40 MG TABLET PO SCH (08:57)
[2021-07-20] MEDS: CLOPIDOGREL 75 MG TAB PO SCH (08:57)
[2021-07-20] MEDS: METOPROLOL SUCCINATE (ER) 25 MG TAB.ER.24H PO SCH (08:57)
[2021-07-20] MEDS: predniSONE 50 MG TAB PO SCH (08:57)
[2021-07-20] MEDS: NICOTINE 21MG/24HR PATCH TRANSDERM SCH (08:57)
[2021-07-20] MEDS: PREGABALIN 75 MG CAP PO SCH ×3 (08:57→21:13)
[2021-07-20] MEDS: AZITHROMYCIN 500 MG TAB PO SCH (08:57)
[2021-07-20] MEDS: lisinopriL 5 MG TAB PO SCH (08:58)
[2021-07-20] MEDS: ISOSORBIDE MONONITRATE ER 60 MG TAB.ER.24H PO SCH (08:58)
--- NOTE | 2021-07-20 09:00 | ECHOF ---
Referral Reason:LV function MEASUREMENTS -------- HEIGHT: 152.4 cm WEIGHT: 72.6 kg BP: 176/76 RVIDd: 2.4 cm (< 3.3) IVSd: 1.1 cm (0.6 - 1.1) LVIDd: 4.9 cm (3.9 - 5.3) LVPWd: 1.1 cm (0.6 - 1.1) IVSs: 1.9 cm LVIDs: 3.2 cm LVPWs: 1.7 cm LA Diam: 3.3 cm (2.7 - 3.8) LAESV Index (A-L): 35.95 ml/m Ao Diam: 3.0 cm (2.0 - 3.7) AV Cusp: 1.7 cm (1.5 - 2.6) MV EXCURSION: 15.892 mm (> 18.000) MV EF SLOPE: 87 mm/s (70 - 150) EPSS: 0.7 cm MV E Mg: 0.88 m/s MV DecT: 199 ms MV A Mg: 1.09 m/s MV E/A Ratio: 0.81 AV maxP.15 mmHg AV meanP.71 mmHg AR PHT: 754 ms RAP: 5.00 mmHg RVSP: 24.98 mmHg FINDINGS -------- Sinus rhythm. This was a technically good study. The left ventricular size is normal. There is borderline concentric left ventricular hypertrophy. Overall left ventricular systolic function is normal with, an EF between 55 - 60 %. The right ventricle is normal in size. LA is moderately dilated 34-39 ml/m2 The right atrium is normal in size. Interatrial and interventricular septum intact. There is mild aortic valve sclerosis. There is [id number] aortic regurgitation. Peak/mean g radient across the Aortic Valve is 12.15mmHg / 5.71mmHg. The mitral valve leaflets are mildly thickened. Mild mitral annular calcification present. Mild m itral regurgitation is present. Mild tricuspid regurgitation present. Right ventricular systolic pressure is normal at < 35 mmHg. The pulmonic valve was not well visualized. The aortic root size is normal. Normal inferior vena cava with normal inspiratory collapse consistent with estimated right atrial pre ssure of 5 mmHg. There is no pericardial effusion. CONCLUSIONS -------- 1. The left ventricular size is normal. 2. There is borderline concentric left ventricular hypertrophy. 3. Overall left ventricular systolic function is normal with, an EF between 55 - 60 %. 4. LA is moderately dilated 34-39 ml/m2 5. There is mild aortic valve sclerosis. 6. There is [id number] aortic regurgitation. 7. Peak/mean gradient across the Aortic Valve is 12.15mmHg / 5.71mmHg. 8. The mitral valve leaflets are mildly thickened. 9. Mild mitral annular calcification present. 10. Mild mitral regurgitation is present. 11. Mild tricuspid regurgitation present. 12. There is no pericardial effusion. AIR POLLUTION ENGINEER: RAMIRO Talbert
[2021-07-20] MEDS: Vilazodone Hcl [Viibryd] 40 MG Tablet PO SCH (09:04)
--- NOTE | 2021-07-20 11:47 | P.PN ---
Subjective Progress Note Date: 07/20/21 This is a pleasant 61-year-old female patient with a history of smoking, hypertension, hyperlipidemia, chronic pain syndrome, CAD, prior stenting of the RCA in 2014 as well as stenting of the LAD in 2019 in 2019. Presented with symptoms of chest discomfort and some EKG changes were noted. She subsequently underwent cardiac catheterization by Dr. Dorantes which showed right dominant system with no significant disease in the mid RCA that was stented or the mid LAD that was also stented in the past. There was a diagonal branch off from the proximal end of the LAD stent with an ostial lesion of 60-70% with brisk flow in the circumflex was free of significant disease. LV pressures were normal with no gradient across the aortic valve. She's been recommended continued medical therapy with smoking cessation and risk factor modification. Overall this morning she is feeling tired and "run down". She apparently did not sleep well last night. She continues to have some left chest discomfort with palpation. Denies any shortness of breath, edema, orthopnea or PND. She's had no palpitations or dizziness. She is currently on aspirin 81 mg by mouth daily, Lipitor 20 mg by mouth daily at bedtime, Plavix 75 mg by mouth daily, isosorbide 60 mg by mouth daily, lisinopril 5 mg by mouth daily and metoprolol succinate 25 mg by mouth daily as well as nicotine patch. Objective - Vital Signs Vital signs: Vital Signs Temp 98 F 07/20/21 07:00 Pulse 73 07/20/21 08:55 Resp 18 07/20/21 07:00 BP 120/66 07/20/21 08:55 Pulse Ox 95 07/20/21 07:00 Intake & Output 07/19/21 07/20/21 07/20/21 18:59 06:59 18:59 Intake Total 800 Balance 800 Intake: IV 800 Sodium Chloride 0.9% 1, 600 000 ml @ 75 mls/hr IV . [id number] [facility] Rx#:[id number] Other: Voiding Method Toilet # Voids 1 - Exam PHYSICAL EXAMINATION: HEENT: Head is atraumatic, normocephalic. Pupils equal, round. Neck is supple. There is no elevated jugular venous pressure. HEART EXAMINATION: Heart sounds regular, S1 and S2 normal with a systolic ejection murmur at the base. CHEST EXAMINATION: Lungs are diminished but clear to auscultation. No chest wall tenderness is noted on palpation or with deep breathing. ABDOMEN: Soft, nontender. Bowel sounds are heard. No organomegaly noted. EXTREMITIES: 2+ peripheral pulses with no evidence of peripheral edema and no calf tenderness noted. Right radial puncture site clean and dry without ecchymosis or hematoma. NEUROLOGIC patient is awake, alert and oriented x3. . - Labs CBC & Chem 7: 07/19/21 05:55 07/20/21 06:36 Labs: Abnormal Lab Results - Last 24 Hours (Table) 07/19/21 07/20/21 Range/Units 05:55 06:36 Hgb 15.9 H (12.0-15.0) g/dL Hct 49.2 H (37.2-46.3) % MCV 101.2 H (80.0-97.0) fL MCH 32.7 H (27.0-32.0) pg Lymphocytes # 0.69 L (0.90-5.00) X 10*3/uL Monocytes # 0.07 L (0.20-1.00) X 10*3/uL Eosinophils # 0.01 L (0.04-0.35) X 10*3/uL Glucose 117 H (74-99) mg/dL Calcium 8.3 L (8.4-10.2) mg/dL Assessment and Plan Assessment: #1 symptoms of chest pain, status post cardiac catheterization with 60-70% lesion in the diagonal branch and patent stents noted to the RCA in mid LAD. #2 CAD with prior PCI involving the mid RCA and mid LAD #3 hypertension #4 hyperlipidemia #5 COPD #6 nicotine dependence #7 bipolar disorder Plan: From cardiology's perspective medications were reviewed and we will continue the same. Patient is stable for discharge home from our standpoint. She'll follow- up in the office with Dr. Dorantes. The above dictated assessment and findings were discussed with signing physician. The impression and plan of care have been directed as dictated. Liza Lucia, Nurse Practitioner, acting as scribe for signing physician.
--- NOTE | 2021-07-20 15:51 | P.PN ---
Subjective Progress Note Date: 07/20/21 No significant events overnight. Patient denies any shortness of breath at rest, but she does become dyspneic and hypoxic with ambulation. Her saturation drops down to 88% on Room Air, she has no history of home oxygen. Chest pain is improving, she underwent a cardiac catheterization yesterday which did not find any significant stenosis or any changes compared to the previous cardiac cath. She still has a nonproductive cough, denies any fevers or chills. She will remain an additional day due to persistent hypoxia Objective - Vital Signs Vital signs: Vital Signs Temp 98 F 07/20/21 14:39 Pulse 66 07/20/21 11:29 Resp 18 07/20/21 14:39 BP 121/65 07/20/21 14:39 Pulse Ox 97 07/20/21 14:39 Intake & Output 07/19/21 07/20/21 07/20/21 18:59 06:59 18:59 Intake Total 800 240 Balance 800 240 Intake: IV 800 Sodium Chloride 0.9% 1, 600 000 ml @ 75 mls/hr IV . [id number] [facility] Rx#:[id number] Oral 240 Other: Voiding Method Toilet # Voids 1 2 - Exam General: Nontoxic, no distress and appears stated age. Derm: Skin warm and dry, normal coloration for ethnicity. Head: Atraumatic, normocephalic and symmetric. Eyes: EOMs intact, no lid lag, and anicteric sclera Mouth: no lip lesions, mucus membranes moist Cardiovascular: regular rate and rhythm with normal S1S2, no murmur, positive posterior tibial pulses bilaterally, and cap refill < 2 seconds. Lungs: Respirations even, regular, and unlabored on room air. Lungs with soft diffuse expiratory wheezes bilaterally, no rhonchi, rales, or crackles. No accessory muscle usage. Abdominal: Obese abdomen, soft, nontender to palpation, no guarding, no appreciable organomegaly Ext: ROM intact. No gross muscle atrophy, no edema, no contractures Neuro: Speech clear, face symmetrical and CN II-XII grossly intact with no noted focal neuro deficits Psych: Alert and oriented to person, place, time, and situation. Appropriate and pleasant affect - Labs CBC & Chem 7: 07/19/21 05:55 07/20/21 06:36 Labs: Abnormal Lab Results - Last 24 Hours (Table) 07/20/21 Range/Units 06:36 Glucose 117 H (74-99) mg/dL Calcium 8.3 L (8.4-10.2) mg/dL Assessment and Plan Plan: typical chest pain described as tightness Status post cardiac catheterization with 60-70% lesion in the diagonal branch and patent stents noted to the RCA in mid LAD History of CAD with stents on Plavix -Cardiology signed off -As needed sublingual nitroglycerin for chest pain/tightness -Continuation of daily home medication regimen consisting of Plavix, Imdur, lisinopril, and metoprolol. COPD with acute exacerbation -Improving, patient still requiring oxygen with ambulation. No history of home oxygen use -Nicotine dependence on cigarettes smoking one pack a day times greater than 40 years -DuoNeb's 4 times daily -X-ray revealing hyperinflation and flattening of diaphragm consistent with COPD. -Prednisone 50 mg daily 5 days -Recommend follow up outpatient with pulmonology to establish care with rod and tube straightener and for PFTs upon discharge. -Patient to be provided with oxygen supplementation as needed to maintain SpO2 equal to or greater than 90%. Patient currently on room air. -Nicotine patch -Patient educated on importance of smoking cessation and risks associated with continued use. Hypothyroidism Continue daily medication regimen with levothyroxine. Other chronic medical conditions include: chronic pain disorder, bipolar disorder, anxiety, and depression: We will continue patient's daily home medication regimen consisting of Percocet 3 times daily as needed for pain, Xanax 3 times daily as needed for anxiety, Elavil, Seroquel, and Viibryd Anticipated discharge home tomorrow Time with Patient: Less than 30
[2021-07-20] MEDS ORDERED: MELATONIN 3 MG TABLET PO SCH (21:00)
[2021-07-20] MEDS ORDERED: ATORVASTATIN 20 MG TAB PO SCH (21:00)
[2021-07-20] MEDS: QUEtiapine 100 MG TAB PO SCH (21:14)
[2021-07-20] MEDS: AMITRIPTYLINE HCL 25 MG TAB PO SCH (21:14)
[2021-07-20] MEDS: OXYBUTYNIN 10 MG TAB.ER.24 PO SCH (21:14)
[2021-07-21] MEDS: LEVOTHYROXINE 125 MCG TAB PO SCH (06:20)
[2021-07-21] MEDS: ALPRAZolam 1 MG TAB PO PRN ×2 (06:20→12:55)
[2021-07-21] MEDS: oxyCODONE-APAP 10-325MG 1 EACH TAB PO PRN (06:20)
[2021-07-21 07:17] VITALS: BP 139/71; RESP 18; TEMP 98
[2021-07-21] MEDS: IPRATROPIUM-ALBUTEROL 3 ML NEB INHALATION SCH ×2 (07:36→11:27)
[2021-07-21] MEDS: SYMBICORT 80-4.5 MCG INHALER INHALATION SCH (07:36)
[2021-07-21 07:50] VITALS: PULSE 60
[2021-07-21] MEDS: AZITHROMYCIN 500 MG TAB PO SCH (08:30)
[2021-07-21] MEDS: NICOTINE 21MG/24HR PATCH TRANSDERM SCH (08:30)
[2021-07-21] MEDS: lisinopriL 5 MG TAB PO SCH (08:30)
[2021-07-21] MEDS: ASPIRIN 81 MG PO SCH (08:30)
[2021-07-21] MEDS: predniSONE 50 MG TAB PO SCH (08:30)
[2021-07-21] MEDS: HEPARIN SODIUM,PORCINE/PF 5,000 UNIT/0.5 ML SYRINGE SQ SCH (08:30)
[2021-07-21] MEDS: PREGABALIN 75 MG CAP PO SCH (08:31)
[2021-07-21] MEDS: CLOPIDOGREL 75 MG TAB PO SCH (08:31)
[2021-07-21] MEDS: PANTOPRAZOLE 40 MG TABLET PO SCH (08:31)
[2021-07-21] MEDS: METOPROLOL SUCCINATE (ER) 25 MG TAB.ER.24H PO SCH (08:31)
[2021-07-21] MEDS: ISOSORBIDE MONONITRATE ER 60 MG TAB.ER.24H PO SCH (08:31)
[2021-07-21] MEDS: Vilazodone Hcl [Viibryd] 40 MG Tablet PO SCH (08:32)
--- NOTE | 2021-07-21 18:25 | P.DS ---
Providers Date of admission: 07/18/21 17:12 Expected date of discharge: 07/21/21 Attending physician: Serene White MD Consults: 07/18/21 16:51 Consult Physician Urgent Consulting Provider: [facility] Consult Reason/Comments: Unstable angina Do you want consulting provider notified?: Yes Primary care physician: Nathanael Nogueira MD - Discharge Diagnosis(es) (1) COPD exacerbation Status: Acute Priority: Medium (2) Unstable angina pectoris Status: Acute Priority: High Hospital Course: HPI from admission on 07/18/21: Patient is a 61-year-old female with a past medical history of coronary artery disease with previous GA and stent placement on Plavix, angina, hypertension, hyperlipidemia, COPD not on home oxygen dependent, chronic pain disorder, bipolar disorder, anxiety, depression, and nicotine dependence on cigarettes. She presented to the emergency department with a chief complaint of chest pain. Patient reports the development of chest pain at rest earlier today in which she took 2 nitroglycerin tablets with no relief so she came to the emergency department for further evaluation. EKG was completed revealing normal sinus rhythm 64 bpm with no noted T-wave or ST abnormalities showing no signs of acute ischemia. Troponin negative at less than 0.012. CBC and CMP were unremarkable. COVID-19 PCR negative. Chest x-ray negative for acute cardiopulmonary process, showing hyperinflation with flattening of hemidiaphragms consistent with COPD. 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 CT head without contrast revealing no acute intercranial hemorrhage and no noted changes from prior recent CT completed 07/10/21 and 08/06/20. Patient currently reports normal memory at this time and speech is clear. She also reports the chest pain she is experiencing is described as a tightness across her chest almost as if she cannot catch her breath and is typical of her normal angina pain which she reports usually taking a nitro and a Percocet to resolve, however she states she did not take her Percocet and had no improvement from the nitroglycerin. Patient received 1 dose of Dilaudid and Ativan in the emergency department and reports slight improvement in her pain, but did request an additional dose of Ativan to be given secondary to her current feelings of anxiety. Patient denies currently experiencing any headache, lightheadedness, dizziness, changes in her vision or hearing, sore throat or dysphasia, cough or congestion, palpitations, shortness of breath, dyspnea with exertion, abdominal pain, nausea, or experiencing any numbness/tingling/weakness in her extremities. Patient reports smoking one pack a day for greater than 40 years. Patient was admitted under our services for consultation to cardiology. Hospital Course: Patient was admitted for evaluation of chest pain and hypoxic respiratory failur e. She underwent cardiac catheterization on 07/19/2021 which did not show any significant stenosis or changes from her previous cardiac cath. Cardiology recommended continuing optimize medical treatment and follow-up in the clinic in 2 weeks. Her hypoxia was secondary to COPD exacerbation which improved with systemic steroids, azithromycin, and DuoNeb treatments [id number]. She was requiring supplemental oxygen for the first 2 days, but by the third day she was ambulating with no hypoxia and room air. Her home medications were continued, she'll be receiving a new prescription for albuterol inhaler as needed, 3 more days of prednisone 50 mg daily, and aspirin 81 mg daily. Patient was counseled extensively on smoking cessation Patient Condition at Discharge: Good Plan - Discharge Summary Discharge Rx Participant: Yes New Discharge Prescriptions: New Melatonin 6 mg PO HS tablet predniSONE 50 mg PO DAILY 3 Days #3 tab Aspirin 81 mg PO DAILY 30 Days #30 tab Albuterol Inhaler [Ventolin Hfa Inhaler] 1 puff INHALATION RT-TID PRN 30 Days #8 gm PRN Reason: Shortness Of Breath Or Wheezing Continue Vilazodone HCl [Viibryd] 40 mg PO DAILY Clopidogrel [Plavix] 75 mg PO DAILY oxyCODONE-APAP 10-325MG [Percocet 10-325 mg] 1 tab PO TID PRN PRN Reason: Pain Amitriptyline HCl [Elavil] 25 mg PO HS Oxybutynin Chloride [Ditropan XL] 10 mg PO HS ALPRAZolam [Xanax] 1 mg PO TID PRN PRN Reason: Anxiety QUEtiapine FUMARATE [SEROquel] 300 mg PO HS Levothyroxine Sodium [Synthroid] 125 mcg PO DAILY@0630 #30 tab lisinopriL [Zestril] 5 mg PO HS Omeprazole 20 mg PO DAILY PRN PRN Reason: gerds Isosorbide Mononitrate ER [Imdur] 60 mg PO DAILY Pregabalin [Lyrica] 150 mg PO TID Rosuvastatin [Crestor] 10 mg PO HS estradioL [Estrace] 1 mg PO DAILY Metoprolol Succinate (ER) [Toprol XL] 25 mg PO DAILY Nitroglycerin Sl Tabs [Nitrostat] 0.4 mg SUBLINGUAL Q5M PRN PRN Reason: Chest Pain Discharge Medication List Clopidogrel [Plavix] 75 mg PO DAILY 02/18/14 [History] Vilazodone HCl [Viibryd] 40 mg PO DAILY 02/18/14 [History] Amitriptyline HCl [Elavil] 25 mg PO HS 04/06/18 [History] oxyCODONE-APAP 10-325MG [Percocet 10-325 mg] 1 tab PO TID PRN 04/06/18 [History] ALPRAZolam [Xanax] 1 mg PO TID PRN 08/06/20 [History] Oxybutynin Chloride [Ditropan XL] 10 mg PO HS 08/06/20 [History] QUEtiapine FUMARATE [SEROquel] 300 mg PO HS 08/06/20 [History] Levothyroxine Sodium [Synthroid] 125 mcg PO DAILY@0630 #30 tab 08/09/20 [Rx] Isosorbide Mononitrate ER [Imdur] 60 mg PO DAILY 07/10/21 [History] Metoprolol Succinate (ER) [Toprol XL] 25 mg PO DAILY 07/10/21 [History] Nitroglycerin Sl Tabs [Nitrostat] 0.4 mg SUBLINGUAL Q5M PRN 07/10/21 [History] Omeprazole 20 mg PO DAILY PRN 07/10/21 [History] Rosuvastatin [Crestor] 10 mg PO HS 07/10/21 [History] estradioL [Estrace] 1 mg PO DAILY 07/10/21 [History] lisinopriL [Zestril] 5 mg PO HS 07/10/21 [History] Pregabalin [Lyrica] 150 mg PO TID 07/18/21 [History] Albuterol Inhaler [Ventolin Hfa Inhaler] 1 puff INHALATION RT-TID PRN 30 Days #8 gm 07/21/21 [Rx] Aspirin 81 mg PO DAILY 30 Days #30 tab 07/21/21 [Rx] Melatonin 6 mg PO HS tablet 07/21/21 [Rx] predniSONE 50 mg PO DAILY 3 Days #3 tab 07/21/21 [Rx] Follow up Appointment(s)/Referral(s): Bjorn Lemos MD [STAFF PHYSICIAN] - 07/24/21 Nathanael Nogueira MD [Primary Care Provider] - 1-2 days Patient Instructions/Handouts: *Surgery [facility] - After Heart Catheterization - Resaw Operator Instructions, How to Stop Smoking (DC), COPD (Chronic Obstructive Pulmonary Disease) (DC) Activity/Diet/Wound Care/Special Instructions: heart cath (dr lemos) 07/19/2021 activity as tolerated heart healthy diet Discharge Disposition: HOME SELF-CARE
== END 2021-07-21 14:00 | disposition home or self-care (01) ==
LOC: EC 13:40 → 6NMEDSUR 17:12
PROVIDERS: ADMIT Internal Medicine; ATTEND Internal Medicine
DX: J44.1 Chronic obstructive pulmonary disease with (acute) exacerbation (principal); I25.110 Atherosclerotic heart disease of native coronary artery with unstable angina pectoris; J96.91 Respiratory failure, unspecified with hypoxia; I25.2 Old myocardial infarction; I10 Essential (primary) hypertension; E78.5 Hyperlipidemia, unspecified; G89.4 Chronic pain syndrome; F31.9 Bipolar disorder, unspecified; F41.9 Anxiety disorder, unspecified; F17.210 Nicotine dependence, cigarettes, uncomplicated; R41.3 Other amnesia; R47.81 Slurred speech; E03.9 Hypothyroidism, unspecified; E66.9 Obesity, unspecified; Z68.31 Body mass index [BMI] 31.0-31.9, adult; M79.7 Fibromyalgia; M19.90 Unspecified osteoarthritis, unspecified site; M54.9 Dorsalgia, unspecified; R26.2 Difficulty in walking, not elsewhere classified; R00.1 Bradycardia, unspecified; I08.1 Rheumatic disorders of both mitral and tricuspid valves; Z20.822 Contact with and (suspected) exposure to COVID-19; Z87.440 Personal history of urinary (tract) infections; Z87.820 Personal history of traumatic brain injury; Z95.5 Presence of coronary angioplasty implant and graft; Z79.82 Long term (current) use of aspirin; Z79.02 Long term (current) use of antithrombotics/antiplatelets; Z79.01 Long term (current) use of anticoagulants; Z79.890 Hormone replacement therapy; Z79.899 Other long term (current) drug therapy; Z90.710 Acquired absence of both cervix and uterus; Z88.1 Allergy status to other antibiotic agents; Z88.0 Allergy status to penicillin; Z88.8 Allergy status to other drugs, medicaments and biological substances; Z71.6 Tobacco abuse counseling; Z71.89 Other specified counseling
CPT/HCPCS: 96376; 96372 ×2; 96374; 96375; 99285; 36415; 94640 ×6; 93005; 93306; 93458; 80061; 80053; 80048 ×2; 83735; 84484; 85025 ×2; 85610; 85730; 81003; 87635; 71046; 70450; G0378 ×4; C1894; C1769; S4990 ×3; J2250; J2060; J2001; J3010; J1644 ×5; J7512 ×4; J1170; Q9967

== ENCOUNTER 2022-01-10 17:35 | Inpatient (IN) | payer OTHER ==
[2022-01-10 18:39] LABS: Basophils % (A) 1 %; Eosinophils # (A) 0.1 k/uL (0-0.7); Eosinophils % (A) 1 %; HCT 44.9 % (34.0-46.0); HGB 14.8 gm/dL (11.4-16.0); Lymphocytes # (A) 1.3 k/uL (1.0-4.8); Lymphocytes % (A) 19 %; MCH 32.6 pg (25.0-35.0); MCHC 32.9 g/dL (31.0-37.0); MCV 99.2 fL (80.0-100.0); Mean Platelet Volume 7.9; Monocytes # (A) 0.3 k/uL (0-1.0); Monocytes % (A) 5 %; Neutrophils # (A) 5.1 k/uL (1.3-7.7); Neutrophils % (A) 74 %; Platelet Count 213 k/uL (150-450); RBC 4.53 m/uL (3.80-5.40); WBC 6.9 k/uL (3.8-10.6)
[2022-01-10 18:52] LABS: ALT 10 U/L (4-34); AST 23 U/L (14-36); African American GFR (CKD) >90 (>60 ml/min/1.73 sqM); Albumin 3.8 g/dL (3.5-5.0); Alkaline Phosphatase 86 U/L (38-126); Anion Gap 6 mmol/L; Blood Urea Nitrogen 5 mg/dL (7-17); Calcium 8.6 mg/dL (8.4-10.2); Carbon Dioxide 26 mmol/L (22-30); Chloride 107 mmol/L (98-107); Glucose 87 mg/dL (74-99); Lipase 16 U/L (23-300); Non-African American GFR(CKD) 88 (>60 ml/min/1.73 sqM); Potassium 3.7 mmol/L (3.5-5.1); Sodium 139 mmol/L (137-145); Total Bilirubin 0.6 mg/dL (0.2-1.3); Total Protein 6.6 g/dL (6.3-8.2)
[2022-01-10 19:14] LABS: Appearance,Urine Turbid (Clear); Bacteria,Urine Many /hpf; Bilirubin,Urine Negative (Negative); Blood,Urine Negative (Negative); Color,Urine Yellow; Glucose,Urine (UA) Negative (Negative); Ketones,Urine Negative (Negative); Leukocyte Esterase,Urine Negative (Negative); Mucus,Urine Many /hpf; Nitrite,Urine Negative (Negative); Protein,Urine 1+ (Negative); RBC,Urine 3 /hpf (0-5); Specific Gravity,Urine 1.023 (1.001-1.035); Squamous Epithelial Cell,Urine 45 /hpf (0-4); WBC,Urine 4 /hpf (0-5)
[2022-01-10] MEDS ORDERED: HYDROmorphone 1 MG/ML 1 ML SYRINGE IVP STA (21:56)
--- NOTE | 2022-01-10 22:09 | ED ---
General Adult HPI - General Chief complaint: Abdominal Pain Stated complaint: abd pain Time Seen by Provider: 01/10/22 21:32 Source: patient Mode of arrival: ambulatory Limitations: no limitations - History of Present Illness Initial comments: 61-year-old female past medical history of coronary artery disease with stent placement presents to the emergency room with several complaints. Patient reports that today she began having right upper quadrant abdominal pain, nausea, vomiting, bloody stools. Admits to a history of peptic ulcer disease when she was taking NSAIDs however has not taken any in a significant period of time. No alcohol use. Admits to previous colonoscopy without abnormal findings however this was a significant period of time ago. States her pain is worse with eating. Reports that she has not eaten anything in 2 days because the pain is so bad. She denies changes in her urination to include dysuria, hematuria or difficult voiding. No fevers or chills. Additionally reports to chest pain which radiates straight through to her back. Makes her feel short of breath. Additionally it is reported by the patient that she is having intermittent episodes of confusion which have been worsening over the past year. She did sustain head trauma last summer however states recently over the past week she has significant memory impairment. Patient's daughter was concerned that she was unaware that she had woken up and let the dogs outside this morning. Patient feels as if she cannot give me a complete history and she cannot remember majority of her symptoms. She admits to headaches without visual changes. No recent head trauma. No other alleviating, precipitating or modifying factors - Related Data Home Medications Medication Instructions Recorded Confirmed Clopidogrel [Plavix] 75 mg PO DAILY 02/18/14 01/10/22 Amitriptyline HCl [Elavil] 25 mg PO HS 04/06/18 01/10/22 oxyCODONE-APAP 10-325MG [Percocet 1 tab PO TID PRN 04/06/18 01/10/22 10-325 mg] ALPRAZolam [Xanax] 1 mg PO TID PRN 08/06/20 01/10/22 Oxybutynin Chloride [Ditropan XL] 10 mg PO HS 08/06/20 01/10/22 QUEtiapine FUMARATE [SEROquel] 300 mg PO HS 08/06/20 01/10/22 Isosorbide Mononitrate ER [Imdur] 60 mg PO DAILY 07/10/21 01/10/22 Metoprolol Succinate (ER) [Toprol 25 mg PO HS 07/10/21 01/10/22 XL] Nitroglycerin Sl Tabs [Nitrostat] 0.4 mg SL Q5M PRN 07/10/21 01/10/22 estradioL [Estrace] 1 mg PO DAILY 07/10/21 01/10/22 lisinopriL [Zestril] 5 mg PO DAILY 07/10/21 01/10/22 Pregabalin [Lyrica] 150 mg PO TID 07/18/21 01/10/22 Previous Rx's Medication Instructions Recorded Levothyroxine Sodium [Synthroid] 125 mcg PO DAILY@0630 #30 tab 08/09/20 Albuterol Inhaler [Ventolin Hfa 1 puff INHALATION RT-TID PRN 30 07/21/21 Inhaler] Days #8 gm Aspirin 81 mg PO DAILY 30 Days #30 tab 07/21/21 Allergies Allergy/AdvReac Type Severity Reaction Status Date / Time ciprofloxacin [From Cipro] Allergy Anaphylaxis Verified 01/10/22 23:24 Penicillins Allergy Swelling/Hi Verified 01/10/22 23:24 ves vancomycin Allergy Dyspnea Verified 01/10/22 23:24 ketorolac tromethamine AdvReac Itching Verified 01/10/22 23:24 [From Toradol] NSAIDS (Non-Steroidal AdvReac STOMACH Verified 01/10/22 23:24 Anti-Inflamma ULCER Review of Systems ROS Statement: Those systems with pertinent positive or pertinent negative responses have been documented in the HPI. ROS Other: All systems not noted in ROS Statement are negative. Past Medical History Past Medical History: Coronary Artery Disease (CAD), Chest Pain / Angina, Fibromyalgia, Myocardial Infarction ([place]), Osteoarthritis (OA), Thyroid Disorder Additional Past Medical History / Comment(s): interstitial cystitis; Back Pain Last Myocardial Infarction Date:: 2015 History of Any Multi-Drug Resistant Organisms: None Reported Past Surgical History: Back Surgery, Bladder Surgery, Breast Surgery, Heart Catheterization With Stent, Hysterectomy Additional Past Surgical History / Comment(s): bladder stimulator, neck surgery, heart cath with stents in 2013 and 2015 Past Anesthesia/Blood Transfusion Reactions: No Reported Reaction Date of Last Stent Placement:: 2015 Past Psychological History: Anxiety, Bipolar, Depression Smoking Status: Current every day smoker Past Alcohol Use History: None Reported Past Drug Use History: Marijuana General Exam Limitations: no limitations Course Vital Signs 01/10/22 01/10/22 01/11/22 17:53 23:42 00:00 Temperature 98 F 98.3 F 98 F Pulse Rate 74 65 83 Respiratory 20 22 20 Rate Blood Pressure 163/82 150/69 148/74 O2 Sat by Pulse 96 97 97 Oximetry EKG Findings - EKG Comments: EKG Findings:: EKG demonstrates sinus rhythm with a rate of 70.. 192. Dress 102. QTC of 49. No acute ST segment elevations. Some ST depression in 2, 3, aVF as well as V4 through V6 Medical Decision Making - Medical Decision Making Upon arrival laboratory studies are conducted. She does spend a considerable amount of time in the waiting room E4 getting a bed. She is placed in room 4 and hooked up to continuous pulse ox and cardiac monitoring. Patient continues to report chest pain and epigastric abdominal pain. IV is established and the patient is given 1 mg of Dilaudid. Laboratory studies are conducted and reviewed. 2 troponins are conducted due to her length of stay in the emergency department. Patient is sent over for a CT of her brain due to her worsening memory issues which demonstrates no acute findings. CT of the abdomen and pelvis is performed which demonstrates no acute findings to explain her right upper quadrant abdominal pain. She does have a linear density the small bowel in the pelvis. These results are discussed with the patient. Recommended outpatient follow-up however the patient becomes tearful reporting her fears of pain home alone due to her memory issues. Also continues to report to the epigastric and chest pain without any relief with the Dilaudid. She is additi onally given a nitro. Spoke with Dr. Villatoro who agreed to admit the patient for neurology and psych consult. Patient awaiting a bed in the floor in stable condition - Lab Data Result diagrams: 01/11/22 05:37 01/11/22 05:37 Lab Results 01/10/22 01/10/22 01/10/22 Range/Units 18:19 18:19 18:19 WBC 6.9 (3.8-10.6) k/uL RBC 4.53 (3.80-5.40) m/uL Hgb 14.8 (11.4-16.0) gm/dL Hct 44.9 (34.0-46.0) % MCV 99.2 (80.0-100.0) fL MCH 32.6 (25.0-35.0) pg MCHC 32.9 (31.0-37.0) g/dL RDW 14.0 (11.5-15.5) % Plt Count 213 (150-450) k/uL MPV 7.9 Neutrophils % 74 % Lymphocytes % 19 % Monocytes % 5 % Eosinophils % 1 % Basophils % 1 % Neutrophils # 5.1 (1.3-7.7) k/uL Lymphocytes # 1.3 (1.0-4.8) k/uL Monocytes # 0.3 (0-1.0) k/uL Eosinophils # 0.1 (0-0.7) k/uL Basophils # 0.0 (0-0.2) k/uL PT (9.0-12.0) sec INR (<1.2) APTT (22.0-30.0) sec Sodium 139 (137-145) mmol/L Potassium 3.7 (3.5-5.1) mmol/L Chloride 107 (98-107) mmol/L Carbon Dioxide 26 (22-30) mmol/L Anion Gap 6 mmol/L BUN 5 L (7-17) mg/dL Creatinine 0.73 (0.52-1.04) mg/dL Est GFR (CKD-EPI)AfAm >90 (>60 ml/min/1.73 sqM) Est GFR (CKD-EPI)NonAf 88 (>60 ml/min/1.73 sqM) Glucose 87 (74-99) mg/dL Plasma Lactic Acid Olu 1.4 (0.7-2.0) mmol/L Calcium 8.6 (8.4-10.2) mg/dL Total Bilirubin 0.6 (0.2-1.3) mg/dL AST 23 (14-36) U/L ALT 10 (4-34) U/L Alkaline Phosphatase 86 (38-126) U/L Troponin I (0.000-0.034) ng/mL Total Protein 6.6 (6.3-8.2) g/dL Albumin 3.8 (3.5-5.0) g/dL Lipase 16 L (23-300) U/L Urine Color Urine Appearance (Clear) Urine pH (5.0-8.0) Ur Specific [place] (1.001-1.035) Urine Protein (Negative) Urine Glucose (UA) (Negative) Urine Ketones (Negative) Urine Blood (Negative) Urine Nitrite (Negative) Urine Bilirubin (Negative) Urine Urobilinogen (<2.0) mg/dL Ur Leukocyte Esterase (Negative) Urine RBC (0-5) /hpf Urine WBC (0-5) /hpf Ur Squamous Epith Cells (0-4) /hpf Urine Bacteria (None) /hpf Urine Mucus (None) /hpf 01/10/22 01/10/22 01/10/22 Range/Units 18:46 19:05 19:05 WBC (3.8-10.6) k/uL RBC (3.80-5.40) m/uL Hgb (11.4-16.0) gm/dL Hct (34.0-46.0) % MCV (80.0-100.0) fL MCH (25.0-35.0) pg MCHC (31.0-37.0) g/dL RDW (11.5-15.5) % Plt Count (150-450) k/uL MPV Neutrophils % % Lymphocytes % % Monocytes % % Eosinophils % % Basophils % % Neutrophils # (1.3-7.7) k/uL Lymphocytes # (1.0-4.8) k/uL Monocytes # (0-1.0) k/uL Eosinophils # (0-0.7) k/uL Basophils # (0-0.2) k/uL PT 11.1 (9.0-12.0) sec INR 1.0 (<1.2) APTT 27.2 (22.0-30.0) sec Sodium (137-145) mmol/L Potassium (3.5-5.1) mmol/L Chloride (98-107) mmol/L Carbon Dioxide (22-30) mmol/L Anion Gap mmol/L BUN (7-17) mg/dL Creatinine (0.52-1.04) mg/dL Est GFR (CKD-EPI)AfAm (>60 ml/min/1.73 sqM) Est GFR (CKD-EPI)NonAf (>60 ml/min/1.73 sqM) Glucose (74-99) mg/dL Plasma Lactic Acid Olu (0.7-2.0) mmol/L Calcium (8.4-10.2) mg/dL Total Bilirubin (0.2-1.3) mg/dL AST (14-36) U/L ALT (4-34) U/L Alkaline Phosphatase (38-126) U/L Troponin I <0.012 (0.000-0.034) ng/mL Total Protein (6.3-8.2) g/dL Albumin (3.5-5.0) g/dL Lipase (23-300) U/L Urine Color Yellow Urine Appearance Turbid H (Clear) Urine pH 6.0 (5.0-8.0) Ur Specific [place] 1.023 (1.001-1.035) Urine Protein 1+ H (Negative) Urine Glucose (UA) Negative (Negative) Urine Ketones Negative (Negative) Urine Blood Negative (Negative) Urine Nitrite Negative (Negative) Urine Bilirubin Negative (Negative) Urine Urobilinogen 2.0 (<2.0) mg/dL Ur Leukocyte Esterase Negative (Negative) Urine RBC 3 (0-5) /hpf Urine WBC 4 (0-5) /hpf Ur Squamous Epith Cells 45 H (0-4) /hpf Urine Bacteria Many H (None) /hpf Urine Mucus Many H (None) /hpf 01/10/22 Range/Units 22:06 WBC (3.8-10.6) k/uL RBC (3.80-5.40) m/uL Hgb (11.4-16.0) gm/dL Hct (34.0-46.0) % MCV (80.0-100.0) fL MCH (25.0-35.0) pg MCHC (31.0-37.0) g/dL RDW (11.5-15.5) % Plt Count (150-450) k/uL MPV Neutrophils % % Lymphocytes % % Monocytes % % Eosinophils % % Basophils % % Neutrophils # (1.3-7.7) k/uL Lymphocytes # (1.0-4.8) k/uL Monocytes # (0-1.0) k/uL Eosinophils # (0-0.7) k/uL Basophils # (0-0.2) k/uL PT (9.0-12.0) sec INR (<1.2) APTT (22.0-30.0) sec Sodium (137-145) mmol/L Potassium (3.5-5.1) mmol/L Chloride (98-107) mmol/L Carbon Dioxide (22-30) mmol/L Anion Gap mmol/L BUN (7-17) mg/dL Creatinine (0.52-1.04) mg/dL Est GFR (CKD-EPI)AfAm (>60 ml/min/1.73 sqM) Est GFR (CKD-EPI)NonAf (>60 ml/min/1.73 sqM) Glucose (74-99) mg/dL Plasma Lactic Acid Olu (0.7-2.0) mmol/L Calcium (8.4-10.2) mg/dL Total Bilirubin (0.2-1.3) mg/dL AST (14-36) U/L ALT (4-34) U/L Alkaline Phosphatase (38-126) U/L Troponin I <0.012 (0.000-0.034) ng/mL Total Protein (6.3-8.2) g/dL Albumin (3.5-5.0) g/dL Lipase (23-300) U/L Urine Color Urine Appearance (Clear) Urine pH (5.0-8.0) Ur Specific [place] (1.001-1.035) Urine Protein (Negative) Urine Glucose (UA) (Negative) Urine Ketones (Negative) Urine Blood (Negative) Urine Nitrite (Negative) Urine Bilirubin (Negative) Urine Urobilinogen (<2.0) mg/dL Ur Leukocyte Esterase (Negative) Urine RBC (0-5) /hpf Urine WBC (0-5) /hpf Ur Squamous Epith Cells (0-4) /hpf Urine Bacteria (None) /hpf Urine Mucus (None) /hpf Disposition Clinical Impression: Unstable angina pectoris, Altered mental status, Epigastric pain, Hematochezia Disposition: ADMITTED IP TO THIS HOSP Condition: Stable Is patient prescribed a controlled substance at d/c from ED?: No Decision to Admit Reason: Admit from EC Decision Date: 01/10/22 Decision Time: 23:56
[2022-01-10 22:15] LABS: Partial Thromboplastin Time 27.2 sec (22.0-30.0); Prothrombin Time 11.1 sec (9.0-12.0)
--- NOTE | 2022-01-10 22:25 | CT ---
EXAMINATION TYPE: CT brain wo con DATE OF EXAM: 01/10/2022 COMPARISON: 07/18/2021 HISTORY: Altered mental status. CT DLP: 1056.4 mGycm Automated exposure control for dose reduction was used. Ventricles have normal size. There is no mass effect or midline shift. There is no sign of intracrani al hemorrhage. The calvarium is intact. The skull base is intact. IMPRESSION: Negative unenhanced head CT scan no change.
--- NOTE | 2022-01-10 22:32 | CT ---
EXAMINATION TYPE: CT abdomen pelvis w con DATE OF EXAM: 01/10/2022 COMPARISON: 06/19/2020 HISTORY: Generalized abdominal pain and mucus bloody stool. CT DLP: 1071.7 mGycm Automated exposure control for dose reduction was used. CONTRAST: Performed with IV Contrast, patient injected with 100ml mL of Isovue 300. Images obtained from the diaphragm to the floor of the pelvis with IV contrast. Lung bases are clear of consolidation. There is no pleural effusion. Heart size is normal. There is n o pericardial effusion. Liver spleen and stomach pancreas and gallbladder appear normal. The bile dorene ts are not dilated. There is no adrenal mass. Kidneys have normal size and contour. There is no hydronephrosis. Ureters a re not dilated. There is no retroperitoneal adenopathy. The bladder distends smoothly. There is no fr ee fluid in the pelvis. There is no mesenteric edema. There is no ascites or free air. There is no bowel obstruction. Appendi x not definitely seen. No significant appendix. The lumbar vertebrae have normal alignment. There is posterior fusion surgery with metal artifact at L4-5. There is no compression fracture. There is laminectomy defect in the lower lumbar spine. Sacroi liac joints are intact. Bony pelvis is intact. Proximal femurs are intact. There is device implanted posterior to the right iliac bone. There is unusual 2 cm linear density in the small bowel in the pel vis. There is neural stimulator electrode noted at the right side of the sacrum. IMPRESSION: Negative CT scan abdomen and pelvis. I do not see a cause for abdominal pain. Linear density in the small bowel in the pelvis. This could be ingested foreign body. Clinical correl ation needed.
[2022-01-10] MEDS ORDERED: ASPIRIN 81 MG PO STA (23:49)
[2022-01-10] MEDS ORDERED: NITROGLYCERIN SL TABS 0.4 MG TAB SUBLINGUAL PRN (23:50)
[2022-01-10] MEDS ORDERED: NALOXONE 0.4 MG/ML 1 ML VIAL IV PRN (23:56)
[2022-01-10] MEDS ORDERED: ALBUTEROL NEBULIZED 2.5 MG/3 ML INHALATION PRN (23:59)
[2022-01-11] MEDS ORDERED: ALBUTEROL NEBULIZED 2.5 MG/3 ML INHALATION PRN (00:02)
[2022-01-11] MEDS: AMITRIPTYLINE HCL 25 MG TAB PO SCH ×2 (00:12→20:48)
[2022-01-11] MEDS: oxyCODONE-APAP 10-325MG 1 EACH TAB PO PRN ×3 (00:12→18:08)
[2022-01-11] MEDS: METOPROLOL SUCCINATE (ER) 25 MG TAB.ER.24H PO SCH ×2 (00:12→20:48)
[2022-01-11] MEDS: OXYBUTYNIN 10 MG TAB.ER.24 PO SCH ×2 (00:16→20:48)
[2022-01-11] MEDS: QUEtiapine 100 MG TAB PO SCH ×2 (00:22→20:48)
[2022-01-11] MEDS: ALPRAZolam 1 MG TAB PO PRN ×3 (01:17→17:27)
[2022-01-11] MEDS ORDERED: ATORVASTATIN 80 MG TAB PO STA (03:49)
--- NOTE | 2022-01-11 03:50 | P.HPIM ---
History of Present Illness H&P Date: 01/11/22 Patient is a 61-year-old female with a PMH of chronic lower back pain on [place], coronary artery disease status post stents, hypertension, hyperlipidemia, COPD, anxiety, depression, and bipolar disorder who presented to the emergency room with complaints of abdominal pain and chest discomfort. Patient reports that over the past 1 week, she has had intermittent deep and aching like right-sided chest discomfort, lasting for up to 5 minutes at a time, occurring daily, but states that it worsened in intensity and duration yesterday. She notes that the pain had worsened to a 9 out of 10, radiating to the right arm, nonpleuritic, some associated shortness of breath but denied nausea, or diaphoresis. She notes that the pain improved upon arrival to the emergency room and after receiving sublingual nitroglycerin. She also reports right upper quadrant abdominal discomfort, which started earlier today, possibly postprandial, nonradiating, unable to quantify. The patient is concerned for possible gallbladder pathology as she reports that her mother also had to have her gallbladder taken out. As a result, she states that she has not been eating or drinking much over the past 3-4 days, although she states that the pain started yesterday. Reports feeling back to her baseline at the time of interview. Denied fever, chills, cough, diarrhea. Of note, the patient had undergone left heart catheterization in 07/2021 which revealed patent stents with no interventions made. CT brain in the emergency room was unremarkable with CT abdomen and pelvis also unremarkable. EKG revealed sinus rhythm at 70 bpm with biphasic T waves inferiorly. Laboratory evaluation revealed a troponin less t booth 0.0123. In the emergency room, there was also concerns for depression as the patient was very tearful to multiple staff and had expressed depressive thoughts. Review of systems: Pertinent positives and negatives as discussed in HPI, a complete review of systems was performed and all other systems are negative. Physical examination: General: non toxic, no distress, appears older than stated age, obese Derm: no unusual rashes/lesions no unusual ecchymoses, warm, dry Head: atraumatic, normocephalic, symmetric Eyes: EOMI, no lid lag, anicteric sclera, pupils equal round reactive to light ENT: Nose and ears atraumatic, no thrush, no pharyngeal erythema Neck: No thyromegaly, no cervical lymphadenopathy, trachea midline, supple Mouth: no lip lesion, mucus membranes moist Cardiovascular: S1S2 reg, no murmur, positive posterior tibial pulse bilateral, no edema, capillary refill less than 2 seconds Lungs: CTA bilateral, no rhonchi, no rales , no accessory muscle use Abdominal: soft, nontender to palpation, no guarding, no appreciable organomegaly, normal bowel sounds Ext: no gross muscle atrophy, muscle strength 5 out of 5 in all 4 extremities grossly, no contractures, Neuro: CN II-XI grossly intact, light touch intact all 4 extremities, finger to nose within normal limits, Psych: Alert, oriented, appropriate affect Assessment/plan Chest pain with atypical features -Cardiology consult -Cardiac monitoring -Continue with aspirin, Plavix, statin Right upper quadrant abdominal pain -CT abdomen and pelvis unremarkable with gallbladder appearing normal DVT prophylaxis -Heparin subq The patient is admitted with an anticipated less than 2 midnight stay for evaluation of chest pain CODE STATUS: Full Code Discussed with: Patient Anticipated discharge date: in am Anticipated discharge place: Home Past Medical History Past Medical History: Coronary Artery Disease (CAD), Chest Pain / Angina, Fibromyalgia, Myocardial Infarction ([place]), Osteoarthritis (OA), Thyroid Disorder Additional Past Medical History / Comment(s): interstitial cystitis; Back Pain Last Myocardial Infarction Date:: 2015 History of Any Multi-Drug Resistant Organisms: None Reported Past Surgical History: Back Surgery, Bladder Surgery, Breast Surgery, Heart Ca theterization With Stent, Hysterectomy Additional Past Surgical History / Comment(s): bladder stimulator placed December 15, 2012, Neck surgery, heart stents placed in LAD in 2018 & 2019 Past Anesthesia/Blood Transfusion Reactions: No Reported Reaction Date of Last Stent Placement:: 2019 Past Psychological History: Anxiety, Bipolar, Depression Smoking Status: Current every day smoker Past Alcohol Use History: None Reported Additional Past Alcohol Use History / Comment(s): smokes daily and somkes marijuana Past Drug Use History: Marijuana Additional Drug Use History / Comment(s): smokes every evening Medications and Allergies Home Medications Medication Instructions Recorded Confirmed Type Clopidogrel [Plavix] 75 mg PO DAILY 02/18/14 01/10/22 History Amitriptyline HCl [Elavil] 25 mg PO HS 04/06/18 01/10/22 History oxyCODONE-APAP 10-325MG [Percocet 1 tab PO TID PRN 04/06/18 01/10/22 History 10-325 mg] ALPRAZolam [Xanax] 1 mg PO TID PRN 08/06/20 01/10/22 History Oxybutynin Chloride [Ditropan XL] 10 mg PO HS 08/06/20 01/10/22 History QUEtiapine FUMARATE [SEROquel] 300 mg PO HS 08/06/20 01/10/22 History Levothyroxine Sodium [Synthroid] 125 mcg PO DAILY@0630 #30 tab 08/09/20 01/10/22 Rx Isosorbide Mononitrate ER [Imdur] 60 mg PO DAILY 07/10/21 01/10/22 History Metoprolol Succinate (ER) [Toprol 25 mg PO HS 07/10/21 01/10/22 History XL] Nitroglycerin Sl Tabs [Nitrostat] 0.4 mg SL Q5M PRN 07/10/21 01/10/22 History estradioL [Estrace] 1 mg PO DAILY 07/10/21 01/10/22 History lisinopriL [Zestril] 5 mg PO DAILY 07/10/21 01/10/22 History Pregabalin [Lyrica] 150 mg PO TID 07/18/21 01/10/22 History Albuterol Inhaler [Ventolin Hfa 1 puff INHALATION RT-TID PRN 30 07/21/21 01/10/22 Rx Inhaler] Days #8 gm Aspirin 81 mg PO DAILY 30 Days #30 tab 07/21/21 01/10/22 Rx Allergies Allergy/AdvReac Type Severity Reaction Status Date / Time ciprofloxacin [From Cipro] Allergy Anaphylaxis Verified 01/10/22 23:24 Penicillins Allergy Swelling/Hi Verified 01/10/22 23:24 ves vancomycin Allergy Dyspnea Verified 01/10/22 23:24 ketorolac tromethamine AdvReac Itching Verified 01/10/22 23:24 [From Toradol] NSAIDS (Non-Steroidal AdvReac STOMACH Verified 01/10/22 23:24 Anti-Inflamma ULCER Physical Exam Vitals: Vital Signs Temp Pulse Pulse Resp BP BP Pulse Ox 01/11/22 01:29 62 16 01/11/22 00:51 98.4 F 62 16 159/60 95 01/11/22 00:00 98 F 83 20 148/74 97 01/10/22 23:42 98.3 F 65 22 150/69 97 01/10/22 17:53 98 F 74 20 163/82 96 Intake and Output 01/10/22 01/10/22 01/11/22 14:59 22:59 06:59 Other: Voiding Method Toilet Weight 72.575 kg 72.575 kg Results CBC & Chem 7: 01/10/22 18:19 01/10/22 18:19 Labs: Abnormal Lab Results - Last 24 Hours (Table) 01/10/22 01/10/22 Range/Units 18:19 18:46 BUN 5 L (7-17) mg/dL Lipase 16 L (23-300) U/L Urine Appearance Turbid H (Clear) Urine Protein 1+ H (Negative) Ur Squamous Epith Cells 45 H (0-4) /hpf Urine Bacteria Many H (None) /hpf Urine Mucus Many H (None) /hpf Thrombosis Risk Factor Assmnt - Choose All That Apply Each Factor Represents 1 point: Obesity (BMI >25) Thrombosis Risk Factor Assessment Total Risk Factor Score: 1 Thrombosis Risk Factor Assessment Level: Low Risk
[2022-01-11] MEDS: LEVOTHYROXINE 125 MCG TAB PO SCH (05:21)
[2022-01-11 07:02] LABS: Basophils % (A) 1 %; Eosinophils # (A) 0.2 k/uL (0-0.7); Eosinophils % (A) 4 %; HCT 45.8 % (34.0-46.0); HGB 14.5 gm/dL (11.4-16.0); Lymphocytes % (A) 34 %; MCHC 31.6 g/dL (31.0-37.0); MCV 101.2 fL (80.0-100.0); Macrocytosis Slight; Mean Platelet Volume 8.2; Monocytes # (A) 0.4 k/uL (0-1.0); Monocytes % (A) 7 %; Neutrophils # (A) 3.1 k/uL (1.3-7.7); Neutrophils % (A) 53 %; Platelet Count 211 k/uL (150-450); RBC 4.52 m/uL (3.80-5.40); RDW 14.1 % (11.5-15.5); WBC 5.9 k/uL (3.8-10.6)
[2022-01-11 07:20] LABS: African American GFR (CKD) >90 (>60 ml/min/1.73 sqM); Anion Gap 5 mmol/L; Blood Urea Nitrogen 5 mg/dL (7-17); Calcium 8.2 mg/dL (8.4-10.2); Carbon Dioxide 28 mmol/L (22-30); Chloride 107 mmol/L (98-107); Glucose 83 mg/dL (74-99); Non-African American GFR(CKD) >90 (>60 ml/min/1.73 sqM); Potassium 3.3 mmol/L (3.5-5.1); Sodium 140 mmol/L (137-145)
[2022-01-11] MEDS ORDERED: POTASSIUM CHLORIDE ER 20 MEQ TAB.ER PO STA (09:25)
[2022-01-11] MEDS: HEPARIN SODIUM,PORCINE/PF 5,000 UNIT/0.5 ML SYRINGE SQ SCH ×3 (10:35→23:28)
[2022-01-11] MEDS: CLOPIDOGREL 75 MG TAB PO SCH (10:35)
[2022-01-11] MEDS: ASPIRIN 81 MG PO SCH (10:35)
[2022-01-11] MEDS: PREGABALIN 75 MG CAP PO SCH ×3 (10:36→20:48)
[2022-01-11] MEDS: lisinopriL 5 MG TAB PO SCH (10:36)
[2022-01-11] MEDS: ISOSORBIDE MONONITRATE ER 60 MG TAB.ER.24H PO SCH (10:36)
--- NOTE | 2022-01-11 11:35 | US ---
EXAMINATION TYPE: US gallbladder DATE OF EXAM: 01/11/2022 COMPARISON: CT CLINICAL HISTORY: pain. EXAM MEASUREMENTS: Liver Length: 15.7 cm Gallbladder Wall: 0.21 cm CBD: 0.81 cm Right Kidney: 10.1 x 4.8 x 5.0 cm Limited due to gas and body habitus. Pancreas: Duct measures 1.9 mm. Limited visibility of tail. Liver: Indistinct, hypoechoic area seen adjacent to the maria elena hepatis suggestive of possible focal f atty sparin.1 x 1.8 x 1.6 cm. Gallbladder: There do appear to be internal echoes throughout the gallbladder. Tiny hyperechoic area s seen. Evidence for sonographic Lagunas's sign: Yes CBD: Appears dilated. Right Kidney: Limited visibility of lower pole due to gas. IMPRESSION: 1. Sonographic Lagunas's sign in the absence of wall thickening or pericholecystic fluid is equivocal for acute cholecystitis. Debris within the gallbladder could represent small gallstones/biliary slud ge. Consider HIDA scan for confirmation of acute cholecystitis. 2. Hepatocellular disease most commonly relating to hepatic steatosis with focal fatty sparing.
--- NOTE | 2022-01-11 13:05 | P.CRDCN ---
History of Present Illness Consult date: 01/11/22 Consult reason: chest pain History of present illness: History of present illness: Patient is a 61-year-old female with a past medical history of coronary artery disease with previous MS and previous stent placement to RCA in 01/2014, PCI LAD in 10/2018 and PCI LAD in 09/2020, hypertension, hyperlipidemia, COPD, chronic pain disorder, bipolar disorder, anxiety, depression, and nicotine dependence on cigarettes, bladder stimulator placed. Her last heart catheterization was 07/18/2021 that revealed right dominant system. No C. diff and disease in the mid RCA that was stented and in the mid LAD that was stented in the past. Diagonal from the proximal end of the LAD stent has an ostial lesion of 60-70% with brisk flow. Circumflex is nondominant and free of significant disease. LV pressures were normal with no gradient across aortic valve. She follows with Dr. JONY Dorantes and last saw him approximately 6 months ago. Patient gives history of having severe abdominal pain in the right upper quadrant and epigastric area. She also has pain with deep breathing. DIAGNOSTICS EKG reveals sinus rhythm, heart rate 70, nonspecific T-wave abnormalities CAT scan of the brain showed no acute abnormalities. Abdominal pelvic CAT scan was negative. Troponin negative on 4 draws. CBC unremarkable. Electrolytes normal. BUN 5 creatinine 0.73. Liver function tests normal. Lipase 16 Echo 07/2021 revealed EF of 55-60%, LAD moderately dilated, mild aortic valve sclerosis, mild to moderate aortic regurgitation, peak gradient of the aortic valve 12.1 and 5/5.71 mmHg, mild mitral calcification, mild mitral regurgi tation, mild tricuspid regurgitation. Current home cardiac medications include aspirin 81 mg daily, Plavix 75 mg daily, Imdur 60 mg daily, lisinopril 5 mg daily, Toprol-XL 25 mg at bedtime, Nitrostat as needed REVIEW OF SYSTEMS At the time of my exam: CONSTITUTIONAL: Denies fever or chills. Positive diaphoresis CARDIOVASCULAR: + chest pain lower right rib area, positive shortness of breath denies orthopnea, PND, palpitations RESPIRATORY: Denies cough. GASTROINTESTINAL: Reports abdominal pain, diarrhea, constipation, nausea or vomiting. MUSCULOSKELETAL: Denies myalgias. NEUROLOGIC: Denies numbness, tingling, headache or weakness. ENDOCRINE: Denies fatigue, weight change, polydipsia or polyurina. GENITOURINARY: Denies burning, hematuria or urgency with micturation. HEMATOLOGIC: Denies history of anemia or bleeding. PHYSICAL EXAMINATION CONSTITUTIONAL: No apparent distress. HEENT: Head is normocephalic. Pupils are equal, round. Sclerae anicteric. Mucous membranes of the mouth are moist. No JVD. No carotid bruit. CHEST EXAMINATION: Lungs are clear to auscultation. No chest wall tenderness is noted on palpation or with deep breathing. HEART EXAMINATION: Regular rate and rhythm. S1, S2 heard. ABDOMEN: Soft, nontender. Positive bowel sounds. EXTREMITIES: 2+ peripheral pulses, no lower extremity edema and no calf tenderness. SKIN: intact NEUROLOGIC EXAMINATION: Patient is awake, alert and oriented x3. ASSESSMENT Chest pain, acute coronary syndrome ruled out Abdominal pain History of coronary artery disease with previous PCI to the RCA in 2013, LAD in 2018 and LAD again in 2019, ostial lesion 60-70% 07/2021 Hypertension Hyperlipidemia COPD History of bipolar disorder History of depression, history of anxiety Chronic nicotine dependence Bladder Stimulator placed PLAN Continue home cardiac medications Replace potassium Obtain due to the echocardiogram Further recommendations based on clinical course Nurse Practitioner note has been reviewed, I agree with a documented findings and plan of care. Patient was seen and examined. Past Medical History Past Medical History: Coronary Artery Disease (CAD), Chest Pain / Angina, Fibromyalgia, Myocardial Infarction ([place]), Osteoarthritis (OA), Thyroid Disorder Additional Past Medical History / Comment(s): interstitial cystitis; Back Pain Last Myocardial Infarction Date:: 2015 History of Any Multi-Drug Resistant Organisms: None Reported Past Surgical History: Back Surgery, Bladder Surgery, Breast Surgery, Heart Catheterization With Stent, Hysterectomy Additional Past Surgical History / Comment(s): bladder stimulator placed December 15, 2012, Neck surgery, heart stents placed in LAD in 2018 & 2019 Past Anesthesia/Blood Transfusion Reactions: No Reported Reaction Date of Last Stent Placement:: 2019 Past Psychological History: Anxiety, Bipolar, Depression Smoking Status: Current every day smoker Past Alcohol Use History: None Reported Additional Past Alcohol Use History / Comment(s): smokes daily and somkes marijuana Past Drug Use History: Marijuana Additional Drug Use History / Comment(s): smokes every evening Medications and Allergies Home Medications Medication Instructions Recorded Confirmed Type Clopidogrel [Plavix] 75 mg PO DAILY 02/18/14 01/10/22 History Amitriptyline HCl [Elavil] 25 mg PO HS 04/06/18 01/10/22 History oxyCODONE-APAP 10-325MG [Percocet 1 tab PO TID PRN 04/06/18 01/10/22 History 10-325 mg] ALPRAZolam [Xanax] 1 mg PO TID PRN 08/06/20 01/10/22 History Oxybutynin Chloride [Ditropan XL] 10 mg PO HS 08/06/20 01/10/22 History QUEtiapine FUMARATE [SEROquel] 300 mg PO HS 08/06/20 01/10/22 History Levothyroxine Sodium [Synthroid] 125 mcg PO DAILY@0630 #30 tab 08/09/20 01/10/22 Rx Isosorbide Mononitrate ER [Imdur] 60 mg PO DAILY 07/10/21 01/10/22 History Metoprolol Succinate (ER) [Toprol 25 mg PO HS 07/10/21 01/10/22 History XL] Nitroglycerin Sl Tabs [Nitrostat] 0.4 mg SL Q5M PRN 07/10/21 01/10/22 History estradioL [Estrace] 1 mg PO DAILY 07/10/21 01/10/22 History lisinopriL [Zestril] 5 mg PO DAILY 07/10/21 01/10/22 History Pregabalin [Lyrica] 150 mg PO TID 07/18/21 01/10/22 History Albuterol Inhaler [Ventolin Hfa 1 puff INHALATION RT-TID PRN 30 07/21/21 01/10/22 Rx Inhaler] Days #8 gm Aspirin 81 mg PO DAILY 30 Days #30 tab 07/21/21 01/10/22 Rx Allergies Allergy/AdvReac Type Severity Reaction Status Date / Time ciprofloxacin [From Cipro] Allergy Anaphylaxis Verified 01/10/22 23:24 Penicillins Allergy Swelling/Hi Verified 01/10/22 23:24 ves vancomycin Allergy Dyspnea Verified 01/10/22 23:24 ketorolac tromethamine AdvReac Itching Verified 01/10/22 23:24 [From Toradol] NSAIDS (Non-Steroidal AdvReac STOMACH Verified 01/10/22 23:24 Anti-Inflamma ULCER Physical Exam Vitals: Vital Signs Temp Pulse Pulse Resp BP BP Pulse Ox 01/11/22 07:20 98.1 F 54 L 18 104/57 86 L 01/11/22 01:29 62 16 01/11/22 00:51 98.4 F 62 16 159/60 95 01/11/22 00:00 98 F 83 20 148/74 97 01/10/22 23:42 98.3 F 65 22 150/69 97 01/10/22 17:53 98 F 74 20 163/82 96 Intake and Output 01/10/22 01/11/22 01/11/22 22:59 06:59 14:59 Other: Voiding Method Toilet # Voids 2 Weight 72.575 kg 72.575 kg Results 01/11/22 05:37 01/11/22 05:37 Cardiac Enzymes 01/10/22 01/10/22 01/10/22 Range/Units 18:19 19:05 22:06 AST 23 (14-36) U/L Troponin I <0.012 <0.012 (0.000-0.034) ng/mL 01/11/22 01/11/22 Range/Units 01:40 05:37 AST (14-36) U/L Troponin I <0.012 <0.012 (0.000-0.034) ng/mL Coagulation 01/10/22 Range/Units 19:05 PT 11.1 (9.0-12.0) sec APTT 27.2 (22.0-30.0) sec CBC 01/10/22 01/11/22 Range/Units 18:19 05:37 WBC 6.9 5.9 (3.8-10.6) k/uL RBC 4.53 4.52 (3.80-5.40) m/uL Hgb 14.8 14.5 (11.4-16.0) gm/dL Hct 44.9 45.8 (34.0-46.0) % Plt Count 213 211 (150-450) k/uL Comprehensive Metabolic Panel 01/10/22 01/11/22 Range/Units 18:19 05:37 Sodium 139 140 (137-145) mmol/L Potassium 3.7 3.3 L (3.5-5.1) mmol/L Chloride 107 107 (98-107) mmol/L Carbon Dioxide 26 28 (22-30) mmol/L BUN 5 L 5 L (7-17) mg/dL Creatinine 0.73 0.70 (0.52-1.04) mg/dL Glucose 87 83 (74-99) mg/dL Calcium 8.6 8.2 L (8.4-10.2) mg/dL AST 23 (14-36) U/L ALT 10 (4-34) U/L Alkaline Phosphatase 86 (38-126) U/L Total Protein 6.6 (6.3-8.2) g/dL Albumin 3.8 (3.5-5.0) g/dL Current Medications Generic Name Dose Route Start Last Admin Trade Name Freq PRN Reason Stop Dose Admin Albuterol Sulfate 2.5 mg 01/11/22 00:02 Albuterol Nebulized 2.5 Mg/3 Ml INHALATION RT-TID PRN Shortness Of Breath Or Wheezing Alprazolam 1 mg 01/10/22 23:59 01/11/22 01:17 Alprazolam 1 Mg Tab PO 1 mg TID PRN Administration Anxiety Amitriptyline HCl 25 mg 01/10/22 23:45 01/11/22 00:12 Amitriptyline Hcl 25 Mg Tab PO 25 mg HS JOHNSON Administration Aspirin 81 mg 01/11/22 09:00 Aspirin 81 Mg PO DAILY [facility] Clopidogrel Bisulfate 75 mg 01/11/22 09:00 Clopidogrel 75 Mg Tab PO DAILY [facility] Estradiol 1 mg 01/11/22 09:00 Estradiol 0.5 Mg Tab PO DAILY [facility] Heparin Sodium (Porcine) 5,000 unit 01/11/22 08:00 Heparin Sodium,Porcine/Pf 5,000 Unit/0.5 Ml Syringe SQ Q8HR [facility] Isosorbide Mononitrate 60 mg 01/11/22 09:00 Isosorbide Mononitrate Er 60 Mg Tab.Er.24h PO DAILY JOHNSON Levothyroxine Sodium 125 mcg 01/11/22 06:30 01/11/22 05:21 Levothyroxine 125 Mcg Tab PO 125 mcg DAILY@0630 JOHNSON Administration Lisinopril 5 mg 01/11/22 09:00 Lisinopril 5 Mg Tab PO DAILY [facility] Metoprolol Succinate 25 mg 01/11/22 00:00 01/11/22 00:12 Metoprolol Succinate (Er) 25 Mg Tab.Er.24h PO 25 mg HS JOHNSON Administration Naloxone HCl 0.2 mg 01/10/22 23:56 Naloxone 0.4 Mg/Ml 1 Ml Vial IV Q2M PRN Opioid Reversal Nitroglycerin 0.4 mg 01/10/22 23:50 Nitroglycerin Sl Tabs 0.4 Mg Tab SUBLINGUAL Q5M PRN Chest Pain Oxybutynin Chloride 10 mg 01/11/22 00:00 01/11/22 00:16 Oxybutynin 10 Mg Tab.Er.24 PO 10 mg HS JOHNSON Administration Oxycodone/Acetaminophen 1 each 01/10/22 23:59 01/11/22 00:12 Oxycodone-Apap 10-325mg 1 Each Tab PO 1 each TID PRN Administration Pain Pregabalin 150 mg 01/11/22 09:00 Pregabalin 75 Mg Cap PO TID JOHNSON Quetiapine Fumarate 300 mg 01/11/22 00:00 01/11/22 00:22 Quetiapine 100 Mg Tab PO 300 mg HS JOHNSON Administration Intake and Output 01/10/22 01/11/22 01/11/22 22:59 06:59 14:59 Other: Voiding Method Toilet # Voids 2 Weight 72.575 kg 72.575 kg 01/11/22 05:37 01/11/22 05:37
--- NOTE | 2022-01-11 14:00 | ECHOF ---
Referral Reason:LVF MEASUREMENTS -------- HEIGHT: 152.4 cm WEIGHT: 72.6 kg BP: 104/59 RVIDd: 3.1 cm (< 3.3) IVSd: 1.2 cm (0.6 - 1.1) LVIDd: 5.0 cm (3.9 - 5.3) LVPWd: 1.3 cm (0.6 - 1.1) IVSs: 2.0 cm LVIDs: 3.6 cm LVPWs: 1.6 cm LA Diam: 4.2 cm (2.7 - 3.8) LAESV Index (A-L): 35.79 ml/m Ao Diam: 3.0 cm (2.0 - 3.7) AV Cusp: 2.1 cm (1.5 - 2.6) MV EXCURSION: 15.568 mm (> 18.000) MV EF SLOPE: 74 mm/s (70 - 150) EPSS: 0.6 cm MV E Mg: 0.93 m/s MV DecT: 207 ms MV A Mg: 0.86 m/s MV E/A Ratio: 1.08 AR PHT: 645 ms RAP: 5.00 mmHg RVSP: 36.76 mmHg FINDINGS -------- Sinus rhythm. This was a technically good study. The left ventricular size is normal. There is mild concentric left ventricular hypertrophy. Overa ll left ventricular systolic function is normal with, an EF between 55 - 60 %. The right ventricle is normal in size. LA is moderately dilated 34-39 ml/m2 The right atrium is normal in size. Interatrial and interventricular septum intact. There is mild aortic regurgitation. Mild mitral regurgitation is present. [id number] tricuspid regurgitation present. There is mild pulmonary hypertension. The right ventricular systolic pressure, as measured by Doppler, is 36.76mmHg. Trace/mild (physiologic) pulmonic regurgitation. The aortic root size is normal. Normal inferior vena cava with normal inspiratory collapse consistent with estimated right atrial pre ssure of 5 mmHg. There is no pericardial effusion. CONCLUSIONS -------- 1. The left ventricular size is normal. 2. There is mild concentric left ventricular hypertrophy. 3. Overall left ventricular systolic function is normal with, an EF between 55 - 60 %. 4. LA is moderately dilated 34-39 ml/m2 5. There is mild aortic regurgitation. 6. Mild mitral regurgitation is present. 7. [id number] tricuspid regurgitation present. 8. There is mild pulmonary hypertension. 9. The right ventricular systolic pressure, as measured by Doppler, is 36.76mmHg. 10. Trace/mild (physiologic) pulmonic regurgitation. 11. There is no pericardial effusion. FILLER FEEDER: RAMIRO Talbert
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
--- NOTE | 2022-01-11 17:33 | P.CN ---
Psychiatric Consult - . Consult date: 01/11/22 Consult:: 01/11/22 17:18 Psychiatric evaluation: This is psychotic assessment on Erica schuster who is a 61-year-old female and was seen for a psychiatric evaluation Patient carries a complicated history of alcohol health issues that include coronary artery disease hyperlipidemia anxiety disorder bipolar disorder COPD Further medical details are as per Dr. 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 Patient states that she has difficulty with concentration and attention span Patient denies any alcohol or substance use Patient is on Xanax 1 mg 3 times a day although she takes it on a when necessary basis only and usually at nighttime Patient denies any other substance use Past history personal and social history: 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 She denies being actively involved in any work and states that 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 mother She admits that she has issues with her own memory and her health issues She denies any previous psychiatric hospitalizations or inpatient treatment She denies seeing a therapist or counselor at this time She denies any suicide attempts or any thoughts in the past or in the present Mental status examination reveals a elderly female who currently appears in no acute physical distress Patient is alert and oriented to time place and person Speech was clear coherent and relevant Thought processes are goal-directed sequential and logical Memory for the past and present events appears to be fair Patient denies any suicidal or homicidal ideations Affect seems to be flat Thought processes exhibits low self-esteem and confidence Patient's formal and operational judgment and insight remains fair but concrete Patient's cognitive abilities especially related to recent memory and recall seems to be somewhat below par Diagnostic impression: Adjustment disorder with mixed emotional features Depressive disorder unspecified Major neurocognitive disorder mild possibly medication related? Plan: Patient complains of some problems with recent memory and recall and may be related to multiple medications that includes opiates and benzodiazepines as well as several other drugs which may be contributing to her memory issues Would recommend discontinuation of Xanax especially in combination with the opiates and would recommend starting buspirone 15 mg twice a day As for his depression patient could benefit from supportive counseling and seeing a therapist to improve her coping skills and assertiveness training We will also recommend adding an antidepressant like a Cymbalta starting at 20 mg daily Thank you very much for allowing to see this patient and please feel free to contact me if he has any further questions Luis Armando Roque M.D. 01/11/2022
--- NOTE | 2022-01-11 22:28 | CT ---
EXAMINATION TYPE: CT chest angio for PE DATE OF EXAM: 01/11/2022 COMPARISON: 04/06/2018 HISTORY: chest pain CT DLP: 327.5 mGycm Automated exposure control for dose reduction was used. CONTRAST: Performed with IV Contrast, patient injected with 80cc mL of Isovue 370. There are Three-D postprocessed images. The lungs are clear of consolidation. There is mild subsegmental atelectasis in the posterior lung fi elds. Heart size is normal. There is no pericardial effusion. No pleural effusion. There are no hilar masses. There is no mediastinal adenopathy. Thoracic aorta shows no aneurysm. There is normal contrast opacification of the pulmonary arteries. There are no filling defects. The t horacic spine is intact. No compression fracture. There is some degenerative spur formation throughou t the thoracic spine. IMPRESSION: No evidence of pulmonary embolism. Minimal subsegmental atelectasis. No significant change compared t o old exam.
[2022-01-12] MEDS: ALPRAZolam 1 MG TAB PO PRN (02:52)
[2022-01-12] MEDS: oxyCODONE-APAP 10-325MG 1 EACH TAB PO PRN ×3 (02:53→17:41)
[2022-01-12] MEDS: LEVOTHYROXINE 125 MCG TAB PO SCH (05:33)
[2022-01-12] MEDS: CLOPIDOGREL 75 MG TAB PO SCH (08:46)
[2022-01-12] MEDS: PREGABALIN 75 MG CAP PO SCH ×3 (09:46→20:01)
[2022-01-12] MEDS: ASPIRIN 81 MG PO SCH (09:46)
[2022-01-12] MEDS: HEPARIN SODIUM,PORCINE/PF 5,000 UNIT/0.5 ML SYRINGE SQ SCH ×3 (09:47→20:02)
[2022-01-12] MEDS: lisinopriL 5 MG TAB PO SCH (09:47)
[2022-01-12] MEDS: ISOSORBIDE MONONITRATE ER 60 MG TAB.ER.24H PO SCH (09:47)
--- NOTE | 2022-01-12 10:33 | P.GSCN ---
History of Present Illness Consult date: 01/12/22 Reason for Consult: Right upper quadrant pain. History of present illness: 60-year-old female presents to the hospital with complaints of mucousy bloody stools and abdominal pain. Patient says she has had pain in the right upper quadrant for the last week or so. Some improvement with nitroglycerin initially. Cardiology evaluated the patient currently. Patient also described some rectal urgency and had an episode of incontinence where the output was mucousy and bloody. Patient's last colonoscopy 5 years ago. She does have a history of polyps. CAT scan was performed. CAT scan does not show any definite abnormalities to explain her current symptoms. There is a 1.5-2 cm density in the small bowel that is linear in nature. Etiology for this is unclear. Patient had a gallbladder ultrasound where she had a sonographic positive [place] sign. Some sludge present. No gallbladder wall thickening. HIDA scan was ordered for tomorrow. Patient still having pain. Some nausea. Liver enzymes are normal. White blood cell count normal. Review of Systems The patient denies any acute changes in vision or hearing, no dysphagia or odynophagia, no chest pain or shortness of breath, no dysuria or hematuria, no headache, no runny nose, no melena, no unexplained weight loss Past Medical History Past Medical History: Coronary Artery Disease (CAD), Chest Pain / Angina, Fibromyalgia, Myocardial Infarction (SC), Osteoarthritis (OA), Thyroid Disorder Additional Past Medical History / Comment(s): interstitial cystitis; Back Pain Last Myocardial Infarction Date:: 2015 History of Any Multi-Drug Resistant Organisms: None Reported Past Surgical History: Back Surgery, Bladder Surgery, Breast Surgery, Heart Catheterization With Stent, Hysterectomy Additional Past Surgical History / Comment(s): bladder stimulator placed December 15, 2012, Neck surgery, heart stents placed in LAD in 2018 & 2019 Past Anesthesia/Blood Transfusion Reactions: No Reported Reaction Date of Last Stent Placement:: 2019 Past Psychological History: Anxiety, Bipolar, Depression Smoking Status: Current every day smoker Past Alcohol Use History: None Reported Additional Past Alcohol Use History / Comment(s): smokes daily and somkes marijuana Past Drug Use History: Marijuana Additional Drug Use History / Comment(s): smokes every evening Medications and Allergies Home Medications Medication Instructions Recorded Confirmed Type Clopidogrel [Plavix] 75 mg PO DAILY 02/18/14 01/10/22 History Amitriptyline HCl [Elavil] 25 mg PO HS 04/06/18 01/10/22 History oxyCODONE-APAP 10-325MG [Percocet 1 tab PO TID PRN 04/06/18 01/10/22 History 10-325 mg] ALPRAZolam [Xanax] 1 mg PO TID PRN 08/06/20 01/10/22 History Oxybutynin Chloride [Ditropan XL] 10 mg PO HS 08/06/20 01/10/22 History QUEtiapine FUMARATE [SEROquel] 300 mg PO HS 08/06/20 01/10/22 History Levothyroxine Sodium [Synthroid] 125 mcg PO DAILY@0630 #30 tab 08/09/20 01/10/22 Rx Isosorbide Mononitrate ER [Imdur] 60 mg PO DAILY 07/10/21 01/10/22 History Metoprolol Succinate (ER) [Toprol 25 mg PO HS 07/10/21 01/10/22 History XL] Nitroglycerin Sl Tabs [Nitrostat] 0.4 mg SL Q5M PRN 07/10/21 01/10/22 History estradioL [Estrace] 1 mg PO DAILY 07/10/21 01/10/22 History lisinopriL [Zestril] 5 mg PO DAILY 07/10/21 01/10/22 History Pregabalin [Lyrica] 150 mg PO TID 07/18/21 01/10/22 History Albuterol Inhaler [Ventolin Hfa 1 puff INHALATION RT-TID PRN 30 07/21/21 01/10/22 Rx Inhaler] Days #8 gm Aspirin 81 mg PO DAILY 30 Days #30 tab 07/21/21 01/10/22 Rx Allergies Allergy/AdvReac Type Severity Reaction Status Date / Time ciprofloxacin [From Cipro] Allergy Anaphylaxis Verified 01/10/22 23:24 Penicillins Allergy Swelling/Hi Verified 01/10/22 23:24 ves vancomycin Allergy Dyspnea Verified 01/10/22 23:24 ketorolac tromethamine AdvReac Itching Verified 01/10/22 23:24 [From Toradol] NSAIDS (Non-Steroidal AdvReac STOMACH Verified 01/10/22 23:24 Anti-Inflamma [facility] Surgical - Exam Vital Signs Temp Pulse Resp BP Pulse Ox 98 F 74 20 163/82 96 01/10/22 17:53 01/10/22 17:53 01/10/22 17:53 01/10/22 17:53 01/10/22 17:53 Physical exam: General: Well-developed, well-nourished HEENT: Normocephalic, sclerae nonicteric Abdomen: Right upper quadrant tenderness, nondistended Extremities: No edema Neuro: Alert and oriented Results - Labs 01/11/22 05:37 01/11/22 05:37 Abnormal Lab Results - Last 24 Hours (Table) 01/11/22 Range/Units 11:28 D-Dimer 1.60 H (<0.60) mg/L FEU Assessment and Plan (1) Right upper quadrant abdominal pain Narrative/Plan: 61-year-old female with right upper quadrant abdominal pain, bloody mucousy stools, and CAT scan showing small bowel foreign body. Patient is on Plavix and for that reason no urgent surgical intervention planned for possible cholecystitis. Await HIDA scan tomorrow. We'll order a small bowel follow- through to evaluate presence of possible foreign body within the distal small bowel. Continue to hold Plavix in the event that cholecystectomy scheduled during this hospital stay. Await cardiac evaluation. Current Visit: Yes Status: Acute Code(s): R10.11 - RIGHT UPPER QUADRANT PAIN SNOMED Code(s): 814841015
--- NOTE | 2022-01-12 13:31 | P.PN ---
Subjective Progress Note Date: 01/12/22 History of present illness: Patient is a 61-year-old female with a past medical history of coronary artery disease with previous [place] and previous stent placement to RCA in 01/2014, PCI LAD in 10/2018 and PCI LAD in 09/2020, hypertension, hyperlipidemia, COPD, chronic pain disorder, bipolar disorder, anxiety, depression, and nicotine dependence on cigarettes, bladder stimulator placed. Her last heart catheterization was 07/18/2021 that revealed right dominant system. No C. diff and disease in the mid RCA that was stented and in the mid LAD that was stented in the past. Bella sergei from the proximal end of the LAD stent has an ostial lesion of 60-70% with brisk flow. Circumflex is nondominant and free of significant disease. LV pressures were normal with no gradient across aortic valve. She follows with Dr. JONY Dorantes and last saw him approximately 6 months ago. Patient gives history of having severe abdominal pain in the right upper quadrant and epigastric area. She also has pain with deep breathing. DIAGNOSTICS EKG reveals sinus rhythm, heart rate 70, nonspecific T-wave abnormalities CAT scan of the brain showed no acute abnormalities. Abdominal pelvic CAT scan was negative. Troponin negative on 4 draws. CBC unremarkable. Electrolytes normal. BUN 5 creatinine 0.73. Liver function tests normal. Lipase 16 Echo 07/2021 revealed EF of 55-60%, LAD moderately dilated, mild aortic valve sclerosis, mild to moderate aortic regurgitation, peak gradient of the aortic valve 12.1 and 5/5.71 mmHg, mild mitral calcification, mild mitral regurgitation, mild tricuspid regurgitation. Current home cardiac medications include aspirin 81 mg daily, Plavix 75 mg d aily, Imdur 60 mg daily, lisinopril 5 mg daily, Toprol-XL 25 mg at bedtime, Nitrostat as needed 01/12: Patient denies having any chest pain. Heart rate 47-61, blood pressure 95/61. monitor tech is sinus bradycardia Dr. Franklin has evaluated for possible cholecystitis and HIDA scan ordered for tomorrow as well as small bowel follow-through. Plavix is on hold. Patient has been seen by psychiatry and neurology. Echocardiogram reveals EF of 55-60% with mild concentric left hypertrophy, LAD moderately dilated 3439 mL per M2, mild aortic regurgitation, mild mitral regurgitation, mild to moderate tricuspid regurgitation, mild pulmonary hypertension, RVSP 36.76 mmHg. Gallbladder ultrasound with debris could represent small gallstone biliary sludge consider HIDA scan. Hepatocellular disease mild, likely related to hepatic state ptosis with focal fatty sparing. CTA of the chest revealed no evidence of pulmonary embolism. Minimal subsegmental atelectasis. No significant change. PHYSICAL EXAMINATION CONSTITUTIONAL: No apparent distress. HEENT: Head is normocephalic. Pupils are equal, round. Sclerae anicteric. Mucous membranes of the mouth are moist. No JVD. No carotid bruit. CHEST EXAMINATION: Lungs are clear to auscultation. No chest wall tenderness is noted on palpation or with deep breathing. HEART EXAMINATION: Regular rate and rhythm. S1, S2 heard. ABDOMEN: Soft, nontender. Positive bowel sounds. EXTREMITIES: 2+ peripheral pulses, no lower extremity edema and no calf t enderness. SKIN: intact NEUROLOGIC EXAMINATION: Patient is awake, alert and oriented x3. ASSESSMENT Chest pain, acute coronary syndrome ruled out Abdominal pain, workup in process History of coronary artery disease with previous PCI to the RCA in 2013, LAD in 2018 and LAD again in 2019, ostial lesion 60-70% 07/2021 Hypertension Hyperlipidemia COPD History of bipolar disorder History of depression, history of anxiety Chronic nicotine dependence Bladder Stimulator placed PLAN Continue home cardiac medications Plavix is on hold for possible cholecystectomy, last dose 01/11 Further recommendations based on clinical course Nurse Practitioner note has been reviewed, I agree with a documented findings and plan of care. Patient was seen and examined. Objective - Vital Signs Vital signs: Vital Signs Temp 98 F 01/12/22 07:20 Pulse 47 L 01/12/22 07:20 Resp 19 01/12/22 07:20 BP 95/61 01/12/22 07:20 Pulse Ox 91 L 01/12/22 07:20 Intake & Output 01/11/22 01/12/22 01/12/22 18:59 06:59 18:59 Intake Total 118 Balance 118 Intake: Oral 118 Other: Voiding Method Toilet Toilet # Voids 1 - Labs CBC & Chem 7: 01/11/22 05:37 01/11/22 05:37 Labs: Abnormal Lab Results - Last 24 Hours (Table) 01/11/22 Range/Units 11:28 D-Dimer 1.60 H (<0.60) mg/L FEU
[2022-01-12] MEDS: DULoxetine HCL 20 MG CAPSULE.DR PO SCH (14:18)
--- NOTE | 2022-01-12 18:05 | P.PN ---
Subjective Progress Note Date: 01/12/22 History of Present Illness H&P Date: 01/11/22 Patient is a 61-year-old female with a PMH of chronic lower back pain on [place], coronary artery disease status post stents, hypertension, hyperlipidemia, COPD, anxiety, depression, and bipolar disorder who presented to the emergency room with complaints of abdominal pain and chest discomfort. Patient reports that over the past 1 week, she has had intermittent deep and aching like right-sided chest discomfort, lasting for up to 5 minutes at a time, occurring daily, but states that it worsened in intensity and duration yesterday. She notes that the pain had worsened to a 9 out of 10, radiating to the right arm, nonpleuritic, some associated shortness of breath but denied nausea, or diaphoresis. She notes that the pain improved upon arrival to the emergency room and after receiving sublingual nitroglycerin. She also reports right upper quadrant abdominal discomfort, which started earlier today, possibly postprandial, nonradiating, unable to quantify. The patient is concerned for possible gallbladder pathology as she reports that her mother also had to have her gallbladder taken out. As a result, she states that she has not been eating or drinking much over the past 3-4 days, although she states that the pain started yesterday. Reports feeling back to her baseline at the time of interview. Denied fever, chills, cough, diarrhea. Of note, the patient had undergone left heart catheterization in 07/2021 which revealed patent stents with no interventions made. CT brain in the emergency room was unremarkable with CT abdomen and pelvis also unremarkable. EKG revealed sinus rhythm at 70 bpm with biphasic T waves inferiorly. Laboratory evaluation revealed a troponin less than 0.0123. In the emergency room, there was also concerns for depression as the patient was very tearful to multiple staff and had expressed depressive thought Interval history: Patient was seen and examined at the bedside. She still complaining of right upper quadrant pain. Denies any chest pain or shortness of breath. Objective - Vital Signs Vital signs: Vital Signs Temp 98.4 F 01/12/22 14:10 Pulse 55 L 01/12/22 14:10 Resp 19 01/12/22 14:10 BP 112/68 01/12/22 14:10 Pulse Ox 94 L 01/12/22 14:10 Intake & Output 01/11/22 01/12/22 01/12/22 18:59 06:59 18:59 Intake Total 118 222 Balance 118 222 Intake: Oral 118 222 Other: Voiding Method Toilet Toilet # Voids 1 1 - Exam General: non toxic, no distress, appears older than stated age, obese Derm: no unusual rashes/lesions no unusual ecchymoses, warm, dry Head: atraumatic, normocephalic, symmetric Eyes: EOMI, no lid lag, anicteric sclera, pupils equal round reactive to light ENT: Nose and ears atraumatic, no thrush, no pharyngeal erythema Neck: No thyromegaly, no cervical lymphadenopathy, trachea midline, supple Mouth: no lip lesion, mucus membranes moist Cardiovascular: S1S2 reg, no murmur, positive posterior tibial pulse bilateral, no edema, capillary refill less than 2 seconds Lungs: CTA bilateral, no rhonchi, no rales , no accessory muscle use Abdominal: soft, nontender to palpation, no guarding, no appreciable organomegaly, normal bowel sounds Ext: no gross muscle atrophy, muscle strength 5 out of 5 in all 4 extremities grossly, no contractures, Neuro: CN II-XI grossly intact, light touch intact all 4 extremities, finger to nose within normal limits, Psych: Alert, oriented, appropriate affect - Labs CBC & Chem 7: 01/11/22 05:37 01/11/22 05:37 Assessment and Plan Assessment: Assessment and plan: Right upper quadrant abdominal pain -Up ultrasound positive Lagunas sign -HIDA scan ordered -Plavix and hold for possible cholecystectomy -General surgery following Chest pain with atypical features History of coronary artery disease with previous PCI to the RCA in 2014, LAD in 2019 and LAD again in 2019, ostial lesion 60-70% 07/2021 -Cardiology following -Cardiac monitoring -Continue with aspirin, Plavix, statin Hypertension -Controlled -Continue metoprolol and lisinopril Hyperlipidemia -Resume statins Hypothyroidism -Resume levothyroxine Depression and anxiety -Medication will adjust as per psychiatry recommendation History of chronic interstitial cystitis Status post bladder stimulator COPD without exacerbation DVT prophylaxis -Heparin subq The patient is admitted with an anticipated less than 2 midnight stay for evaluation of chest pain CODE STATUS: Full Code
[2022-01-12] MEDS: QUEtiapine 100 MG TAB PO SCH (20:01)
[2022-01-12] MEDS: busPIRone HCl 10 MG TAB PO SCH (20:01)
[2022-01-12] MEDS: AMITRIPTYLINE HCL 25 MG TAB PO SCH (20:01)
[2022-01-12] MEDS: OXYBUTYNIN 10 MG TAB.ER.24 PO SCH (20:01)
[2022-01-12] MEDS: METOPROLOL SUCCINATE (ER) 25 MG TAB.ER.24H PO SCH (20:01)
[2022-01-13] MEDS: oxyCODONE-APAP 10-325MG 1 EACH TAB PO PRN ×3 (01:55→20:23)
[2022-01-13] MEDS: LEVOTHYROXINE 125 MCG TAB PO SCH (05:42)
--- NOTE | 2022-01-13 07:48 | P.PN ---
Subjective Patient is a 61-year-old female with a past medical history of coronary artery disease with previous [place] and previous stent placement to RCA in 01/2014, PCI LAD in 10/2018 and PCI LAD in 09/2020, hypertension, hyperlipidemia, COPD, chronic pain disorder, bipolar disorder, anxiety, depression, and nicotine dependence on cigarettes, bladder stimulator placed. Her last heart catheterization was 07/18/2021 that revealed right dominant system. No C. diff and disease in the mid RCA that was stented and in the mid LAD that was stented in the past. Diagonal from the proximal end of the LAD stent has an ostial lesion of 60-70% with brisk flow. Circumflex is nondominant and free of significant disease. LV pressures were normal with no gradient across aortic valve. She follows with Dr. JONY Dorantes and last saw him approximately 6 months ago. Patient gives history of having severe abdominal pain in the right upper quadrant and epigastric area. She also has pain with deep breathing. DIAGNOSTICS EKG reveals sinus rhythm, heart rate 70, nonspecific T-wave abnormalities CAT scan of the brain showed no acute abnormalities. Abdominal pelvic CAT scan was negative. Troponin negative on 4 draws. CBC unremarkable. Electrolytes normal. BUN 5 creatinine 0.73. Liver function tests normal. Lipase 16 Echo 07/2021 revealed EF of 55-60%, LAD moderately dilated, mild aortic valve sclerosis, mild to moderate aortic regurgitation, peak gradient of the aortic valve 12.1 and 5/5.71 mmHg, mild mitral calcification, mild mitral regurgitation, mild tricuspid regurgitation. Current home cardiac medications include aspirin 81 mg daily, Plavix 75 mg daily, Imdur 60 mg daily, lisinopril 5 mg daily, Toprol-XL 25 mg at bedtime, Nitrostat as needed 01/12: Patient denies having any chest pain. Heart rate 47-61, blood pressure 95/61. supervisor extruding department is sinus bradycardia Dr. Franklin has evaluated for possible cholecystitis and HIDA scan ordered for tomorrow as well as small bowel follow-through. Plavix is on hold. Patient has been seen by psychiatry and neurology. Echocardiogram reveals EF of 55-60% with mild concentric left hypertrophy, LAD moderately dilated 3439 mL per M2, mild aortic regurgitation, mild mitral regurgitation, mild to moderate tricuspid regurgitation, mild pulmonary hypertension, RVSP 36.76 mmHg. Gallbladder ultrasound with debris could represent small gallstone biliary sludge consider HIDA scan. Hepatocellular disease mild, likely related to hepatic state ptosis with focal fatty sparing. CTA of the chest revealed no evidence of pulmonary embolism. Minimal subsegmental atelectasis. No significant change. 01/13 Patient seen and examined. Patient admits her right upper quadrant abdominal pain has gotten somewhat worse this morning. Admits it is much worse to take a deep breath in and also has the associated substernal chest pain similar to when she came in. She denies any shortness breath or diaphoresis. PHYSICAL EXAMINATION CONSTITUTIONAL: No apparent distress. HEENT: Head is normocephalic. Pupils are equal, round. Sclerae anicteric. Mucous membranes of the mouth are moist. No JVD. No carotid bruit. CHEST EXAMINATION: Lungs are clear to auscultation. No chest wall tenderness is noted on palpation or with deep breathing. HEART EXAMINATION: Regular rate and rhythm. S1, S2 heard. ABDOMEN: Soft, nontender. Positive bowel sounds. EXTREMITIES: 2+ peripheral pulses, no lower extremity edema and no calf tenderness. SKIN: intact NEUROLOGIC EXAMINATION: Patient is awake, alert and oriented x3. ASSESSMENT Chest pain, acute coronary syndrome ruled out Abdominal pain, appears related to gall bladder disease History of coronary artery disease with previous PCI to the RCA in 2013, LAD in 2018 and LAD again in 2019, ostial lesion 60-70% 07/2021 Hypertension Hyperlipidemia COPD History of bipolar disorder History of depression, history of anxiety Chronic nicotine dependence Bladder Stimulator placed PLAN Continue home cardiac medications Plavix is on hold It has been more than 12 months since her last PCI and no significant and no significant angina symptoms. Cleared for surgery and contine to hold Plavix. No further recommendations from cardiology standpoint. Please call with qu estions. Objective - Vital Signs Vital signs: Vital Signs Temp 98.0 F 01/13/22 07:00 Pulse 49 L 01/13/22 07:00 Resp 18 01/13/22 07:00 BP 132/77 01/13/22 07:00 Pulse Ox 92 L 01/13/22 07:00 Intake & Output 01/12/22 01/13/22 01/13/22 18:59 06:59 18:59 Intake Total 444 Balance 444 Intake: Oral 444 Other: Voiding Method Toilet # Voids 1 2 - Labs CBC & Chem 7: 01/11/22 05:37 01/11/22 05:37
--- NOTE | 2022-01-13 11:00 | NM ---
Nuclear medicine hepatobiliary scan. HISTORY: Pain. DOSAGE: The patient received 1.45 micrograms of CCK and 4.6 mCi of Technetium 99m Choletec. FINDINGS: There is normal hepatic extraction. The gallbladder is seen by 20 minutes. There is bilia ry to bowel clearance by 45 minutes. Ejection fraction is 73%. IMPRESSION: 1. Normal hepatobiliary exam
[2022-01-13] MEDS ORDERED: CYANOCOBALAMIN 1,000 MCG/ML 1 ML VIAL IM ONE (11:01)
--- NOTE | 2022-01-13 11:18 | P.PN ---
Subjective Progress Note Date: 01/12/22 Patient was seen for a follow-up. Patient is laying in the bed, complaining of abdominal pain. No further episodes of loss of memory. Objective - Vital Signs Vital signs: Vital Signs Temp 98.0 F 01/13/22 07:00 Pulse 49 L 01/13/22 07:00 Resp 18 01/13/22 07:00 BP 132/77 01/13/22 07:00 Pulse Ox 92 L 01/13/22 07:00 Intake & Output 01/12/22 01/13/22 01/13/22 18:59 06:59 18:59 Intake Total 444 Balance 444 Intake: Oral 444 Other: Voiding Method Toilet # Voids 1 2 - Exam Patient is alert and awake. Speech and liver functions are normal. Examination nonfocal. - Labs CBC & Chem 7: 01/11/22 05:37 01/11/22 05:37 Assessment and Plan Assessment: * Memory loss, probably due to history of multiple concussions in the past. * Hypertension * Anxiety disorder * Tobacco use Plan: * B12 262, folate 10.6. B12 is slightly low, therefore we will start vitamin B12 replacement. * EEG to rule out epileptiform activity. Patient had episode of amnesia last week, when she did not remember going outside early in the morning, letting dog out, smoking a cigarette and then came back inside and slept. * Carotid Doppler to rule out carotid stenosis. * Patient was on dual antiplatelet medication Plavix 75 mg and aspirin 81 mg daily. Currently Plavix is on hold for abdominal pain and possible need for cholecystectomy. Patient is undergoing HIDA scan tomorrow. * 2-D echo revealed normal left ventricular size. Mild concentric LVH. EF is between 55-60%. Left atrium is moderately dilated. Mild AR. * Hemoglobin A1c 5.8, cholesterol 198, LDL 123 on 07/19/2021. Suggest starting Lipitor 20 mg daily. Patient previously had problems with Lipitor and Crestor. Suggest starting Zocor 20 mg at the time of discharge. * Recommend complete tobacco cessation. * Suggest follow-up with neurologist as an outpatient for further cognitive function testing. Patient may benefit from neuropsychological testing. * Dr. Miguel Benjamin Will resume neurology service in the morning.
[2022-01-13] MEDS: HEPARIN SODIUM,PORCINE/PF 5,000 UNIT/0.5 ML SYRINGE SQ SCH ×3 (11:26→20:25)
[2022-01-13] MEDS: ASPIRIN 81 MG PO SCH (11:26)
[2022-01-13] MEDS: DULoxetine HCL 20 MG CAPSULE.DR PO SCH (11:27)
[2022-01-13] MEDS: PREGABALIN 75 MG CAP PO SCH ×3 (11:27→20:24)
[2022-01-13] MEDS: lisinopriL 5 MG TAB PO SCH (11:27)
[2022-01-13] MEDS: ISOSORBIDE MONONITRATE ER 60 MG TAB.ER.24H PO SCH (11:28)
[2022-01-13] MEDS: busPIRone HCl 10 MG TAB PO SCH ×2 (11:28→20:24)
[2022-01-13 12:02] LABS: African American GFR (CKD) 86 (>60 ml/min/1.73 sqM); Anion Gap 4 mmol/L; Blood Urea Nitrogen 11 mg/dL (7-17); Calcium 8.2 mg/dL (8.4-10.2); Carbon Dioxide 28 mmol/L (22-30); Chloride 106 mmol/L (98-107); Glucose 101 mg/dL (74-99); Non-African American GFR(CKD) 74 (>60 ml/min/1.73 sqM); Potassium 4.2 mmol/L (3.5-5.1); Sodium 138 mmol/L (137-145)
--- NOTE | 2022-01-13 12:44 | US ---
EXAMINATION TYPE: US carotid duplex BILAT DATE OF EXAM: 01/13/2022 COMPARISON: CTA CLINICAL HISTORY: Memory loss, rule out TIA. AMS EXAM MEASUREMENTS: RIGHT: Peak Systolic Velocity (PSV) cm/sec ----- Right CCA: 66.9 ----- Right ICA: 72.3 ----- Right ECA: 107 ICA/CCA ratio: 1.1 RIGHT: End Diastole cm/sec ----- Right CCA: 11.7 ----- Right ICA: 20.1 ----- Right ECA: 13.9 LEFT: Peak Systolic Velocity (PSV) cm/sec ----- Left CCA: 48.8 ----- Left ICA: 148 ----- Left ECA: 93.3 ICA/CCA ratio: 3.0 LEFT: End Diastole cm/sec ----- Left CCA: 11.8 ----- Left ICA: 38.9 ----- Left ECA: 19.9 VERTEBRALS (direction of flow): Right Vertebral: Antegrade Left Vertebral: Antegrade Rhythm: Normal No significant stenosis seen, left ICA tortuous causing elevated velocities IMPRESSION: 1. Findings suggestive of moderate 50-69% stenosis involving the proximal left ICA. There is tortuosi ty of the artery, therefore, correlation with CTA of the carotid arteries\neck recommended for furthe r evaluation. Criteria for Assigning % of Stenosis / Diameter reduction (Estimation based on the indirect measurements of the internal carotid artery velocities (ICA PSV). 1. Normal (no stenosis)=ICA PSV < 125 cm/s: ratio < 2.0: ICA EDV<40 cm/s. 2. Less than 50% stenosis=ICA PSV < 125 cm/s: ratio < 2.0: ICA EDV<40 cm/s. 3. 50 to 69% stenosis=ICA PSV of 125 to 230 cm/s: ration 2.0 ? 4.0: ICA EDV 40-100 cm/s. 4. Greater than 70% stenosis to near occlusion= ICA PSV > 230 cm/s: ratio > 4.0: ICA EDV > 100 cm/s. 5. Near occlusion= ICA PSV velocities may be low or undetectable: variable ratio and ICA EDV. 6. Total occlusion=unable to detect flow.
--- NOTE | 2022-01-13 13:11 | P.PN ---
Subjective Progress Note Date: 01/13/22 History of Present Illness H&P Date: 01/11/22 Patient is a 61-year-old female with a PMH of chronic lower back pain on [place], coronary artery disease status post stents, hypertension, hyperlipidemia, COPD, anxiety, depression, and bipolar disorder who presented to the emergency room with complaints of abdominal pain and chest discomfort. Patient reports that over the past 1 week, she has had intermittent deep and aching like right-sided chest discomfort, lasting for up to 5 minutes at a time, occurring daily, but states that it worsened in intensity and duration yesterday. She notes that the pain had worsened to a 9 out of 10, radiating to the right arm, nonpleuritic, some associated shortness of breath but denied nausea, or diaphoresis. She notes that the pain improved upon arrival to the emergency room and after receiving sublingual nitroglycerin. She also reports right upper quadrant abdominal discomfort, which started earlier today, possibly postprandial, nonradiating, unable to quantify. The patient is concerned for possible gallbladder pathology as she reports that her mother also had to have her gallbladder taken out. As a result, she states that she has not been eating or drinking much over the past 3-4 days, although she states that the pain started yesterday. Reports feeling back to her baseline at the time of interview. Denied fever, chills, cough, diarrhea. Of note, the patient had undergone left heart catheterization in 07/2021 which revealed patent stents with no interventions made. CT brain in the emergency room was unremarkable with CT abdomen and pelvis also unremarkable. EKG revealed sinus rhythm at 70 bpm with biphasic T waves inferiorly. Laboratory evaluation revealed a troponin less than 0.0123. In the emergency room, there was also concerns for depression as the patient was very tearful to multiple staff and had expressed depressive thought Interval history: Patient was seen and examined at the bedside. She still complaining of right upper quadrant pain. Denies any chest pain or shortness of breath. HIDA scan came back normal. Objective - Vital Signs Vital signs: Vital Signs Temp 98.0 F 01/13/22 07:00 Pulse 49 L 01/13/22 07:00 Resp 18 01/13/22 07:00 BP 132/77 01/13/22 07:00 Pulse Ox 92 L 01/13/22 07:00 Intake & Output 01/12/22 01/13/22 01/13/22 18:59 06:59 18:59 Intake Total 444 Balance 444 Intake: Oral 444 Other: Voiding Method Toilet # Voids 1 2 - Exam General: non toxic, no distress, appears older than stated age, obese Derm: no unusual rashes/lesions no unusual ecchymoses, warm, dry Head: atraumatic, normocephalic, symmetric Eyes: EOMI, no lid lag, anicteric sclera, pupils equal round reactive to light ENT: Nose and ears atraumatic, no thrush, no pharyngeal erythema Neck: No thyromegaly, no cervical lymphadenopathy, trachea midline, supple Mouth: no lip lesion, mucus membranes moist Cardiovascular: S1S2 reg, no murmur, positive posterior tibial pulse bilateral, no edema, capillary refill less than 2 seconds Lungs: CTA bilateral, no rhonchi, no rales , no accessory muscle use Abdominal: soft, nontender to palpation, no guarding, no appreciable organomegaly, normal bowel sounds Ext: no gross muscle atrophy, muscle strength 5 out of 5 in all 4 extremities grossly, no contractures, Neuro: CN II-XI grossly intact, light touch intact all 4 extremities, finger to nose within normal limits, Psych: Alert, oriented, appropriate affect - Labs CBC & Chem 7: 01/11/22 05:37 01/13/22 11:36 Labs: Abnormal Lab Results - Last 24 Hours (Table) 01/13/22 Range/Units 11:36 Glucose 101 H (74-99) mg/dL Calcium 8.2 L (8.4-10.2) mg/dL Assessment and Plan Assessment: Assessment and plan: Right upper quadrant abdominal pain -Abdominal ultrasound positive Lagunas sign -HIDA scan came back normal -General surgery following ordered small bowel series for questionable foreign body Chest pain with atypical features History of coronary artery disease with previous PCI to the RCA in 2014, LAD in 2019 and LAD again in 2020, ostial lesion 60-70% 07/2021 -Cardiology following -Cardiac monitoring -Continue with aspirin, Plavix, statin Hypertension -Controlled -Continue metoprolol and lisinopril Hyperlipidemia -Resume statins Hypothyroidism -Resume levothyroxine Depression and anxiety -Medication will adjust as per psychiatry recommendation History of chronic interstitial cystitis Status post bladder stimulator COPD without exacerbation DVT prophylaxis -Heparin subq The patient is admitted with an anticipated less than 2 midnight stay for evaluation of chest pain CODE STATUS: Full Code
--- NOTE | 2022-01-13 15:44 | P.PN ---
Subjective Progress Note Date: 01/13/22 Principal diagnosis: right upper quadrant pain Patient seems more comfortable today. Still having pain right upper quadrant. HIDA scan showed a normal ejection fraction with patency of the cystic duct. Small bowel series apparently being performed tomorrow rather than today. No vomiting today. She is afebrile. Objective - Vital Signs Vital signs: Vital Signs Temp 98 F 01/13/22 14:06 Pulse 55 L 01/13/22 14:06 Resp 18 01/13/22 14:06 BP 118/64 01/13/22 14:06 Pulse Ox 96 01/13/22 14:06 Intake & Output 01/12/22 01/13/22 01/13/22 18:59 06:59 18:59 Intake Total 444 540 Balance 444 540 Intake: Oral 444 540 Other: Voiding Method Toilet # Voids 1 2 1 - Exam Abdomen: Soft, mild tenderness right upper quadrant, no rebound or guarding - Labs CBC & Chem 7: 01/11/22 05:37 01/13/22 11:36 Labs: Abnormal Lab Results - Last 24 Hours (Table) 01/13/22 Range/Units 11:36 Glucose 101 H (74-99) mg/dL Calcium 8.2 L (8.4-10.2) mg/dL Assessment and Plan (1) Right upper quadrant abdominal pain Narrative/Plan: 61-year-old female with suspected cholecystitis based on ultrasound results. HIDA scan does not show any need for emergent intervention. Therefore would prefer to let Plavix stay off for a minimum of 5 days before surgery. Check small bowel series tomorrow to evaluate possible small bowel foreign body. Recheck CBC and CMP tomorrow. Current Visit: Yes Status: Acute Code(s): R10.11 - RIGHT UPPER QUADRANT PAIN SNOMED Code(s): 058480986
[2022-01-13] MEDS: QUEtiapine 100 MG TAB PO SCH (20:23)
[2022-01-13] MEDS: OXYBUTYNIN 10 MG TAB.ER.24 PO SCH (20:23)
[2022-01-13] MEDS: AMITRIPTYLINE HCL 25 MG TAB PO SCH (20:24)
[2022-01-13] MEDS: METOPROLOL SUCCINATE (ER) 25 MG TAB.ER.24H PO SCH (20:25)
[2022-01-14] MEDS: LEVOTHYROXINE 125 MCG TAB PO SCH (06:21)
[2022-01-14] MEDS: oxyCODONE-APAP 10-325MG 1 EACH TAB PO PRN (06:22)
[2022-01-14 07:28] VITALS: PULSE 48
[2022-01-14] MEDS ORDERED: CYANOCOBALAMIN 500 MCG TAB PO SCH (09:00)
[2022-01-14 09:11] LABS: Basophils # (A) 0.03 X 10*3/uL (0.00-0.10); Basophils % (A) 0.5 %; Eosinophils # (A) 0.25 X 10*3/uL (0.04-0.35); Eosinophils % (A) 4.2 %; HCT 46.6 % (37.2-46.3); HGB 14.8 g/dL (12.0-15.0); Immature Grans, Automated 0.3 %; Lymphocytes # (A) 2.44 X 10*3/uL (0.90-5.00); Lymphocytes % (A) 41.2 %; MCH 31.6 pg (27.0-32.0); MCHC 31.8 g/dL (32.0-37.0); MCV 99.4 fL (80.0-97.0); Mean Platelet Volume 11.8 fL (9.5-12.2); Monocytes # (A) 0.45 X 10*3/uL (0.20-1.00); Monocytes % (A) 7.6 %; NRBC Per 100 WBC 0 /100 WBCS (0.0-0.0); Neutrophils # (A) 2.73 X 10*3/uL (1.80-7.70); Neutrophils % (A) 46.2 %; Platelet Count 176 X 10*3/uL (140-440); RBC 4.69 X 10*6/uL (4.10-5.20); WBC 5.92 X 10*3/uL (4.50-10.00)
[2022-01-14 09:15] LABS: African American GFR (CKD) 81.6 (60.0-200.0); Albumin 3.8 g/dL (3.8-4.9); Albumin/Globulin Ratio 1.88 (1.60-3.17); Anion Gap 11.5 mmol/L (10.00-18.00); BUN/Creat Ratio 11.89 Ratio (12.00-20.00); Blood Urea Nitrogen 10.4 mg/dL (9.0-27.0); Calcium 8.7 mg/dL (8.7-10.3); Non-African American GFR(CKD) 70.4 (60.0-200.0); Potassium 4.1 mmol/L (3.5-5.5); Total Bilirubin 0.2 mg/dL (0.30-1.20); Total Protein 5.9 g/dL (6.2-8.2)
[2022-01-14] MEDS: PREGABALIN 75 MG CAP PO SCH ×2 (12:21→16:04)
[2022-01-14] MEDS: HEPARIN SODIUM,PORCINE/PF 5,000 UNIT/0.5 ML SYRINGE SQ SCH ×2 (12:22→16:02)
[2022-01-14] MEDS: ASPIRIN 81 MG PO SCH (12:22)
[2022-01-14] MEDS: lisinopriL 5 MG TAB PO SCH (12:23)
[2022-01-14] MEDS: ISOSORBIDE MONONITRATE ER 60 MG TAB.ER.24H PO SCH (12:23)
[2022-01-14] MEDS: busPIRone HCl 10 MG TAB PO SCH (12:23)
[2022-01-14] MEDS: DULoxetine HCL 20 MG CAPSULE.DR PO SCH (12:23)
--- NOTE | 2022-01-14 13:21 | FL ---
EXAMINATION TYPE: FL small bowel follow through DATE OF EXAM: 01/14/2022 COMPARISON: CT dated 01/10/2022 HISTORY: Possible small bowel foreign body TECHNIQUE: A single contrast small bowel follow through. A total of 0 seconds of fluoroscopic time was utilized during procedure and 9 images obtained. FINDINGS: Customer Support Consultant image of the abdomen shows fecal loading of the colon. No signs of acute high-grade small bowel obstruction. Significant degenerative changes of the lumbar spine mainly inferiorly with lumbosacral fixation. Right buttock stimulator device is seen, appreciated previously. No definite radiodense fo reign body identified with the previously described possible elongated foreign body in the pelvis is not appreciated by this x-ray. The esophagus shows normal motility and emptying into the stomach. No evidence of hiatal hernia or s tricture noted. The stomach shows no evidence of gross mass or obvious ulcer disease. The duodenal bulb and sweep are grossly unremarkable. The small bowel study shows normal transit to the colon in less than 120 minutes. There is normal mu cosal fold pattern throughout the small bowel. There is no evidence of any stricture or definite nimesh ling defect noted. The terminal ileum is unremarkable. IMPRESSION: Unremarkable small bowel follow through barium study. Considering the nonvisualized johnson gated previously described possible foreign body in the pelvic small bowel, follow-up CT scan can be considered if clinically required.
[2022-01-14 13:49] VITALS: BP 145/75; RESP 10; TEMP 97.6
--- NOTE | 2022-01-14 15:30 | EEG ---
ELECTROENCEPHALOGRAM REPORT DATE OF SERVICE: 01/14/2022 CLINICAL HISTORY: This is a 61-year-old woman with reported memory loss. The video EEG was obtained to evaluate for seizure and epileptiform activity. RELEVANT MEDICATIONS: Lyrica. EEG TYPE: A 21-channel EEG was performed with video using 10/20 electrode placement system. DESCRIPTION: Wakefulness was obtained. During the awake state the posterior-dominant rhythm consisted of low to moderate voltage of 8.5 to 9.5 hertz that was well modulated and well sustained. There was no physiological sleep architecture seen. There was no focal slowing. Interictal and ictal was none. ACTIVATION PROCEDURE: Photic stimulation did not evoke a posterior driving response. There was no abnormality during the photic stimulation. Hyperventilation was not performed. CLINICAL INTERPRETATION: This was a normal routine EEG. There was no focal slowing, epileptiform discharge or seizure on the EEG. Clinical correlation recommended. GINO / CHRISTINA: [id number] / MTDD
--- NOTE | 2022-01-14 16:03 | P.PN ---
Subjective Progress Note Date: 01/14/22 Principal diagnosis: right upper quadrant pain Patient had her small bowel series earlier today. That study did not show any definite foreign body. Still having some right upper quadrant pain. Tolerating diet. No nausea or vomiting. She remains afebrile. White blood cell count and liver transaminases normal. Objective - Vital Signs Vital signs: Vital Signs Temp 97.6 F 01/14/22 13:48 Pulse 48 L 01/14/22 13:48 Resp 10 L 01/14/22 13:48 BP 145/75 01/14/22 13:48 Pulse Ox 96 01/14/22 13:48 Intake & Output 01/13/22 01/14/22 01/14/22 18:59 06:59 18:59 Intake Total 720 Balance 720 Intake: Oral 720 Other: Voiding Method Toilet # Voids 1 3 3 - Exam Abdomen: Soft, nondistended, mild right upper quadrant tenderness, no rebound or guarding - Labs CBC & Chem 7: 01/14/22 05:33 01/14/22 05:33 Labs: Abnormal Lab Results - Last 24 Hours (Table) 01/14/22 01/14/22 Range/Units 05:33 05:33 Hct 46.6 H (37.2-46.3) % MCV 99.4 H (80.0-97.0) fL MCHC 31.8 L (32.0-37.0) g/dL RDW 15.0 H (11.5-14.5) % BUN/Creatinine Ratio 11.89 L (12.00-20.00) Ratio Total Bilirubin 0.20 L (0.30-1.20) mg/dL Total Protein 5.9 L (6.2-8.2) g/dL Assessment and Plan (1) Right upper quadrant abdominal pain Narrative/Plan: Patient small bowel study is normal. HIDA scan shows no abnormalities. Still suspect possible mild chronic cholecystitis given the patient's ultrasound findings. If discharged patient may follow-up with us later this week to consider scheduling outpatient cholecystectomy. Current Visit: Yes Status: Acute Code(s): R10.11 - RIGHT UPPER QUADRANT PAIN SNOMED Code(s): 432945894
--- NOTE | 2022-01-14 16:07 | P.DS ---
Providers Date of admission: 01/13/22 14:54 Expected date of discharge: 01/14/22 Attending physician: Aftab Hurtado MD Consults: 01/10/22 23:57 Consult Physician Urgent Consulting Provider: Yasir Waters Consult Reason/Comments: memory issues s/p head trauma Do you want consulting provider notified?: Yes 01/10/22 23:58 Consult Physician Urgent Consulting Provider: Lius Armando Roque Consult Reason/Comments: depression Do you want consulting provider notified?: Yes 01/11/22 11:36 Consult Physician Routine Consulting Provider: Pasquale Franklin Consult Reason/Comments: ACUTE CHOLECYSTIS Do you want consulting provider notified?: Yes Primary care physician: Nathanael Nogueira MD Hospital Course: Patient is a 61-year-old female with a PMH of chronic lower back pain on [place], coronary artery disease status post stents, hypertension, hyperlipidemia, COPD, anxiety, depression, and bipolar disorder who presented to the emergency room with complaints of abdominal pain and chest discomfort. CT brain in the emergency room was unremarkable with CT abdomen and pelvis also unremarkable. EKG revealed sinus rhythm at 70 bpm with biphasic T waves inferiorly. Laboratory evaluation revealed a troponin less than 0.0123. Right upper quadrant abdominal pain -Abdominal ultrasound positive Lagunas sign. HIDA scan came back normal. General surgery following ordered small bowel series for questionable foreign body, which was negative. They recommended outpatient follow-up with surgery to schedule cholecystectomy. Chest pain with atypical features History of coronary artery disease with previous PCI to the RCA in 2013, LAD in 2019 and LAD again in 2020, ostial lesion 60-70% 07/2021 -Cardiology followed -Cardiac monitoring did not reveal arrhythmia -Continued with aspirin, statin; Plavix was held in anticipation of outpatient cholecystectomy Hypertension -Controlled -Continued metoprolol and lisinopril Hyperlipidemia -Resumed statins Hypothyroidism -Resume levothyroxine Depression and anxiety -Medication will adjust as per psychiatry recommendation; stopped Xanax, started BuSpar, duloxetine History of chronic interstitial cystitis Status post bladder stimulator COPD without exacerbation I spent 32 minutes coordinating this complex discharge Gen: awake, alert HEENT: normocephalic, atraumatic, good hearing acuity, moist mucous membranes Resp: good air exchange, breathing comfortably with no accessory muscle use CVS: good distal perfusion x 4, GI: soft, NTTP, ND : no SPT, no CVAT, bullard catheter not present MSK: no pitting edema, no clubbing Neuro: non-focal, moving all extremities Psych: cooperative, depressed mood Patient Condition at Discharge: Good Plan - Discharge Summary Discharge Rx Participant: No New Discharge Prescriptions: New busPIRone HCl [Buspar] 10 mg PO BID #60 tab DULoxetine HCL [Cymbalta] 20 mg PO DAILY #30 Cyanocobalamin [Vitamin B-12] 1,000 mcg PO DAILY #60 tab Continue oxyCODONE-APAP 10-325MG [Percocet 10-325 mg] 1 tab PO TID PRN PRN Reason: Pain Amitriptyline HCl [Elavil] 25 mg PO HS Oxybutynin Chloride [Ditropan XL] 10 mg PO HS QUEtiapine FUMARATE [SEROquel] 300 mg PO HS Levothyroxine Sodium [Synthroid] 125 mcg PO DAILY@0630 #30 tab lisinopriL [Zestril] 5 mg PO DAILY Isosorbide Mononitrate ER [Imdur] 60 mg PO DAILY Pregabalin [Lyrica] 150 mg PO TID estradioL [Estrace] 1 mg PO DAILY Metoprolol Succinate (ER) [Toprol XL] 25 mg PO HS Nitroglycerin Sl Tabs [Nitrostat] 0.4 mg SL Q5M PRN PRN Reason: Chest Pain Aspirin 81 mg PO DAILY 30 Days #30 tab Albuterol Inhaler [Ventolin Hfa Inhaler] 1 puff INHALATION RT-TID PRN 30 Days #8 gm PRN Reason: Shortness Of Breath Or Wheezing Discontinued Clopidogrel [Plavix] 75 mg PO DAILY ALPRAZolam [Xanax] 1 mg PO TID PRN PRN Reason: Anxiety Discharge Medication List Amitriptyline HCl [Elavil] 25 mg PO HS 04/06/18 [History] oxyCODONE-APAP 10-325MG [Percocet 10-325 mg] 1 tab PO TID PRN 04/06/18 [History] Oxybutynin Chloride [Ditropan XL] 10 mg PO HS 08/06/20 [History] QUEtiapine FUMARATE [SEROquel] 300 mg PO HS 08/06/20 [History] Levothyroxine Sodium [Synthroid] 125 mcg PO DAILY@0630 #30 tab 08/09/20 [Rx] Isosorbide Mononitrate ER [Imdur] 60 mg PO DAILY 07/10/21 [History] Metoprolol Succinate (ER) [Toprol XL] 25 mg PO HS 07/10/21 [History] Nitroglycerin Sl Tabs [Nitrostat] 0.4 mg SL Q5M PRN 07/10/21 [History] estradioL [Estrace] 1 mg PO DAILY 07/10/21 [History] lisinopriL [Zestril] 5 mg PO DAILY 07/10/21 [History] Pregabalin [Lyrica] 150 mg PO TID 07/18/21 [History] Albuterol Inhaler [Ventolin Hfa Inhaler] 1 puff INHALATION RT-TID PRN 30 Days #8 gm 07/21/21 [Rx] Aspirin 81 mg PO DAILY 30 Days #30 tab 07/21/21 [Rx] Cyanocobalamin [Vitamin B-12] 1,000 mcg PO DAILY #60 tab 01/14/22 [Rx] DULoxetine HCL [Cymbalta] 20 mg PO DAILY #30 01/14/22 [Rx] busPIRone HCl [Buspar] 10 mg PO BID #60 tab 01/14/22 [Rx] Follow up Appointment(s)/Referral(s): Bjorn Dorantes MD [STAFF PHYSICIAN] - 1 Week Nathanael Nogueira MD [Primary Care Provider] - 1-2 days Patient Instructions/Handouts: Chest Pain (DC) Discharge Disposition: HOME SELF-CARE
== END 2022-01-14 17:12 | disposition home or self-care (01) | DRG 313 ==
LOC: EC 17:35 → 6NMEDSUR 23:56 → OBSVTOIN 01-13 14:54
PROVIDERS: ADMIT Internal Medicine; ATTEND Internal Medicine
DX: R07.89 Other chest pain (principal); K81.1 Chronic cholecystitis; E03.9 Hypothyroidism, unspecified; Z79.890 Hormone replacement therapy; E78.5 Hyperlipidemia, unspecified; F17.210 Nicotine dependence, cigarettes, uncomplicated; N30.10 Interstitial cystitis (chronic) without hematuria; R41.9 Unspecified symptoms and signs involving cognitive functions and awareness; F31.9 Bipolar disorder, unspecified; F41.9 Anxiety disorder, unspecified; M19.90 Unspecified osteoarthritis, unspecified site; I10 Essential (primary) hypertension; R00.1 Bradycardia, unspecified; I25.10 Atherosclerotic heart disease of native coronary artery without angina pectoris; I08.3 Combined rheumatic disorders of mitral, aortic and tricuspid valves; I25.2 Old myocardial infarction; G89.29 Other chronic pain; M54.50 Low back pain, unspecified; I37.1 Nonrheumatic pulmonary valve insufficiency; R10.11 Right upper quadrant pain; I27.20 Pulmonary hypertension, unspecified; J44.9 Chronic obstructive pulmonary disease, unspecified; K76.89 Other specified diseases of liver; K82.9 Disease of gallbladder, unspecified; M79.7 Fibromyalgia; Y93.K1 Activity, walking an animal; Z79.02 Long term (current) use of antithrombotics/antiplatelets; Z79.82 Long term (current) use of aspirin; Z79.899 Other long term (current) drug therapy; Z87.11 Personal history of peptic ulcer disease; Z87.19 Personal history of other diseases of the digestive system; Z87.820 Personal history of traumatic brain injury; Z90.710 Acquired absence of both cervix and uterus; Z95.5 Presence of coronary angioplasty implant and graft; Z88.1 Allergy status to other antibiotic agents; Z88.0 Allergy status to penicillin; Z88.8 Allergy status to other drugs, medicaments and biological substances; Z88.6 Allergy status to analgesic agent
CPT/HCPCS: 36415; 70450; 71275; 74177; 74250; 76705; 78227; 80048; 80053; 81001; 82607; 82746; 83605; 83690; 84484; 85025; 85379; 85610; 85730; 93005; 93306; 93880; 94640; 95816; 96374; 99285

== ENCOUNTER 2022-01-24 06:27 | Day surgery (SDC) | payer OTHER ==
[2022-01-22 12:17] VITALS: BMI 30.8
[~2022-01-24 06:27] MED LIST: ACETAMINOPHEN TAB 500 MG TAB PO PRN; DEXAMETHASONE SOD PHOSPHATE 4 MG/ML 1 ML VIAL IV ONE; HEPARIN SODIUM,PORCINE/PF 5,000 UNIT/0.5 ML SYRINGE SQ PRN; LACTATED RINGERS 1,000 ML IV SCH; ONDANSETRON 4 MG/2 ML VIAL IVP ONE
[2022-01-24 07:09] VITALS: TEMP 97.9
[2022-01-24] MEDS ORDERED: MIDAZOLAM 2 MG/2 ML VIAL IVP ONE (07:30)
[2022-01-24] MEDS ORDERED: fentaNYL (PF) 50 MCG/ML 2 ML AMP IVP ONE (07:30)
[2022-01-24] MEDS ORDERED: DEXAMETHASONE SOD PHOSPHATE 4 MG/ML 1 ML VIAL ONE (07:46)
[2022-01-24] MEDS ORDERED: GLYCOPYRROLATE 0.2 MG/ML 2 ML VIAL ONE (07:46)
[2022-01-24] MEDS ORDERED: fentaNYL (PF) 50 MCG/ML 2 ML AMP ONE (07:46)
[2022-01-24] MEDS ORDERED: ePHEDrine 50 MG/ML 1 ML VIAL ONE (07:46)
[2022-01-24] MEDS ORDERED: SUCCINYLCHOLINE CHLORIDE 100 MG/5 ML SYR IV ONE (07:46)
[2022-01-24] MEDS ORDERED: NEOSTIGMINE 1 MG/ML 10 ML VIAL ONE (07:46)
[2022-01-24] MEDS ORDERED: LIDOCAINE 1% INJ 10MG/ML (20 ML MDV) ONE (07:46)
[2022-01-24] MEDS ORDERED: ROCURONIUM 10 MG/ML (5 ML VIAL) IV ONE (07:46)
[2022-01-24] MEDS ORDERED: METOPROLOL TARTRATE 5 MG/5 ML VIAL IVP ONE (07:46)
[2022-01-24] MEDS ORDERED: PROPOFOL 10 MG/ML 20 ML VIAL IV ONE (07:46)
[2022-01-24] MEDS ORDERED: ROPIVACAINE 5 MG/ML 30 ML VIAL ONE (07:46)
[2022-01-24] MEDS ORDERED: SODIUM CHLORIDE 0.9% 100 ML with CLINDAMYCIN 600 MG/50 ML-D5W 600 MG IV ONE ×2 (08:04)
[2022-01-24] MEDS ORDERED: BUPIVACAINE (PF) 0.25% 30 ML VIAL SQ ONE (08:13)
--- NOTE | 2022-01-24 08:39 | P.OP ---
Date of Procedure: 01/24/22 Procedure(s) Performed: PREOPERATIVE DIAGNOSIS: Chronic cholecystitis POSTOPERATIVE DIAGNOSIS: Same PROCEDURE: Laparoscopic cholecystectomy SURGEON: Rigoberto EBL: Minimal see anesthesia record ANESTHESIA: Gen. COMPLICATIONS: None OPERATIVE PROCEDURE: The patient was brought and placed on the operating room table in the supine position. The patient was placed under general anesthesia at that time. The abdomen was prepped and draped in the usual sterile fashion. A small vertical infraumbilical incision was made. The fascia was grasped with the Mally forceps. The fascia was retracted anteriorly. The Veress needle was advanced into the peritoneal cavity. The saline drop test was normal. Insufflation took place up to 15 mmHg. A 5 mm optical trocar was advanced and the peritoneal cavity. 2 additional 5 mm trochars were placed in the right upper quadrant under direct visualization. A 12 mm trocar was advanced into the epigastric incision site. The gallbladder was retracted superiorly and laterally. The peritoneum overlying the infundibulum was bluntly dissected. The patient's cystic duct was visualized. The junction between the cystic duct common and hepatic duct was identified. The critical view of safety was achieved after blunt dissection. The cystic duct was then divided after placement of 3 12 mm clips on the patient's side and one on the specimen side. The cystic artery was identified and clipped as well. A small vessel was seen along the gallbladder fossa and clipped as well. The gallbladder was then removed from the liver bed using electrocautery. The gallbladder was then removed from the epigastric trocar site with an Endo Catch bag. The gallbladder fossa was irrigated with saline. There was no evidence of any bleeding or biliary drainage seen. The fascia at the 12 millimeter site was closed using a Dipak-Prisca 0 Vicryl stitch. The trochars were then removed. The skin at all 4 sites was closed using a 4-0 Monocryl stitch. Skin glue was utilized on the incision sites. At the end of this procedure the sponge and needle counts were correct. DISPOSITION: Stable to the recovery room
[2022-01-24] MEDS ORDERED: LACTATED RINGERS 1,000 ML IV ONE (09:15)
[2022-01-24] MEDS: HYDROmorphone 0.5 MG/0.5 ML SYRINGE IVP PRN ×2 (09:15→09:28)
[2022-01-24] MEDS ORDERED: HYDROmorphone 0.5 MG/0.5 ML SYRINGE IVP ONE ×2 (09:58→10:32)
--- NOTE | 2022-01-24 10:09 | P.ANPRN ---
Procedure Note - Anesthesia - Nerve Block Performed Bilateral Erector Spinae Single Time Out Performed: Yes Date of Procedure: 01/24/22 Procedure Start Time: :30 Procedure Stop Time: :44 Location of Patient: PreOp Indication: Acute Post-Operative Pain, Requested by Surgeon Sedation Type: Sedate with meaningful contact maintained Preparation: Sterile Prep, Sterile Dressing Position: Prone Catheter: None Needle Types: Pajunk Needle Gauge: 20 Ultrasound used to visualize needle placement: Yes Ultrasound used to observe medication spread: Yes Injectate: 0.5% Ropivacaine (see comment for volume) (15 ml + decadron 5 mg per side) Blood Aspirated: No Pain Paresthesia on Injection Noted: No Resistance on Injection: Normal Image Stored and Saved: Yes Events: Uneventful and Well Tolerated
[2022-01-24 11:48] VITALS: BP 122/66; PULSE 77; RESP 16
[2022-01-24] MEDS ORDERED: ACETAMINOPHEN TAB 325 MG TAB PO SCH (12:00)
== END 2022-01-24 12:10 | disposition home or self-care (01) ==
LOC: OR 06:27
PROVIDERS: ATTEND Surgery
DX: K81.1 Chronic cholecystitis (principal); I25.119 Atherosclerotic heart disease of native coronary artery with unspecified angina pectoris; M79.7 Fibromyalgia; I25.2 Old myocardial infarction; M19.90 Unspecified osteoarthritis, unspecified site; E07.9 Disorder of thyroid, unspecified; N30.10 Interstitial cystitis (chronic) without hematuria; F41.9 Anxiety disorder, unspecified; F31.9 Bipolar disorder, unspecified; F17.200 Nicotine dependence, unspecified, uncomplicated; J44.9 Chronic obstructive pulmonary disease, unspecified; G89.29 Other chronic pain; M54.9 Dorsalgia, unspecified; Z95.5 Presence of coronary angioplasty implant and graft; Z79.02 Long term (current) use of antithrombotics/antiplatelets; Z79.899 Other long term (current) drug therapy; Z79.82 Long term (current) use of aspirin; Z79.890 Hormone replacement therapy; Z88.1 Allergy status to other antibiotic agents; Z88.0 Allergy status to penicillin; Z88.8 Allergy status to other drugs, medicaments and biological substances; Z98.890 Other specified postprocedural states; Z90.710 Acquired absence of both cervix and uterus
CPT/HCPCS: 64999; 88304; 47562; J2250; J1100; J2710; J2405; J2001; J3010; J2795; J0330; J2704; J1170; J1644

== ENCOUNTER 2022-03-15 19:39 | Emergency (ER) | payer OTHER ==
[2022-03-15 19:53] VITALS: TEMP 97.8
[2022-03-15] MEDS ORDERED: MORPHINE SULFATE 4 MG/ML SYRINGE IM STA (20:11)
--- NOTE | 2022-03-15 20:33 | ED ---
Fall HPI - General Chief Complaint: Fall Stated Complaint: Fall-L leg/foot lac Time Seen by Provider: 03/15/22 19:56 Source: patient Mode of arrival: wheelchair - History of Present Illness Initial Comments: This is a pleasant 61-year-old female who presents after falling while cleaning her pool. Patient states she missed a step and fell onto the side of pool with her back striking silo pool. She also sustained an abrasion to her left knee and twisted her left ankle. Patient did not hit her head or neck. There is no loss of consciousness, patient recalls the entire event. No other injuries. Patient was able to get out of the pool and continued to clean the pool and then actually went into the house to take a shower. Patient ambulating without difficulty. Complains of some pain to the lateral aspect of left ankle, anterior aspect of the left knee, and left lower back. Pain is exacerbated by movement, alleviated by rest in position. No other injuries. No paresthesias. Patient went to urgent care was sent here for evaluation as they were concerned that the wound on the left knee would not stop bleeding because the patient is on Plavix. No headache, no fever or chills, no changes in vision or hearing, no sore throat or difficulty with speech, no neck pain, no chest pain or shortness of breath, no abdominal pain, no nausea or vomiting, no changes in urination or bowel movements, no numbness or tingling,, no skin rashes or lesions. MD Complaint: fall - Related Data Home Medications Medication Instructions Recorded Confirmed Amitriptyline HCl [Elavil] 25 mg PO HS 04/06/18 01/24/22 oxyCODONE-APAP 10-325MG [Percocet 1 tab PO TID PRN 04/06/18 01/24/22 10-325 mg] Oxybutynin Chloride [Ditropan XL] 10 mg PO HS 08/06/20 01/24/22 QUEtiapine FUMARATE [SEROquel] 300 mg PO HS 08/06/20 01/24/22 Isosorbide Mononitrate ER [Imdur] 60 mg PO DAILY 07/10/21 01/24/22 Metoprolol Succinate (ER) [Toprol 25 mg PO HS 07/10/21 01/24/22 XL] Nitroglycerin Sl Tabs [Nitrostat] 0.4 mg SL Q5M PRN 07/10/21 01/24/22 estradioL [Estrace] 1 mg PO DAILY 07/10/21 01/24/22 lisinopriL [Zestril] 5 mg PO DAILY 07/10/21 01/24/22 Pregabalin [Lyrica] 150 mg PO TID 07/18/21 01/24/22 Clopidogrel Bisulfate [Plavix] 75 mg PO DAILY 01/22/22 01/24/22 DULoxetine HCL 40 mg PO HS 01/22/22 01/24/22 Nicotine Patch(Dose Unknown) 1 patch TOPICAL DIRECTED 01/22/22 01/24/22 ALPRAZolam [Xanax] 0.25 mg PO DAILY 01/24/22 01/24/22 Previous Rx's Medication Instructions Recorded Levothyroxine Sodium [Synthroid] 125 mcg PO DAILY@0630 #30 tab 08/09/20 Albuterol Inhaler [Ventolin Hfa 1 puff INHALATION RT-TID PRN 30 07/21/21 Inhaler] Days #8 gm Aspirin 81 mg PO DAILY 30 Days #30 tab 07/21/21 busPIRone HCl [Buspar] 10 mg PO BID #60 tab 01/14/22 Allergies Allergy/AdvReac Type Severity Reaction Status Date / Time ciprofloxacin [From Cipro] Allergy Anaphylaxis Verified 03/15/22 19:53 Penicillins Allergy Swelling/Hi Verified 03/15/22 19:53 ves vancomycin Allergy Dyspnea Verified 03/15/22 19:53 ketorolac tromethamine AdvReac Itching Verified 03/15/22 19:53 [From Toradol] NSAIDS (Non-Steroidal AdvReac STOMACH Verified 03/15/22 19:53 Anti-Inflamma ULCER Review of Systems ROS Statement: Those systems with pertinent positive or pertinent negative responses have been documented in the HPI. ROS Other: All systems not noted in ROS Statement are negative. Past Medical History Past Medical History: Coronary Artery Disease (CAD), Chest Pain / Angina, Fibromyalgia, Hyperlipidemia, Hypertension, Myocardial Infarction ([place]), Osteoarthritis (OA), Thyroid Disorder Additional Past Medical History / Comment(s): interstitial cystitis; con stipation, gallstones, Last Myocardial Infarction Date:: 2013 History of Any Multi-Drug Resistant Organisms: None Reported Past Surgical History: Back Surgery, Bladder Surgery, Breast Surgery, Heart Catheterization With Stent, Hysterectomy, Orthopedic Surgery Additional Past Surgical History / Comment(s): bladder stimulator, neck surgery, total 6 stents- back fusion, neck fusion, jeff bunionectomy Past Anesthesia/Blood Transfusion Reactions: No Reported Reaction Date of Last Stent Placement:: approx 6 yrs ago Past Psychological History: Anxiety, Bipolar, Depression, Panic Disorder Smoking Status: Former smoker Past Alcohol Use History: None Reported Past Drug Use History: Marijuana - Past Family History Father Family Medical History: Cancer General Exam - General Exam Comments Initial Comments: Cranial nerves II through XII grossly intact. Patient alert and oriented 4. Does not appear to be ill or toxic. Mild distress secondary to orthopedic injuries. Vital signs reviewed, patient hemodynamically stable General appearance: alert, in no apparent distress, in distress Head exam: Present: atraumatic, normocephalic, normal inspection Eye exam: Present: normal appearance, PERRL, EOMI. Absent: scleral icterus, conjunctival injection, periorbital swelling ENT exam: Present: normal exam, mucous membranes moist Neck exam: Present: normal inspection, full ROM. Absent: tenderness, meningismus, lymphadenopathy Respiratory exam: Present: normal lung sounds bilaterally. Absent: respiratory distress, wheezes, rales, rhonchi, stridor Cardiovascular Exam: Present: regular rate, normal rhythm, normal heart sounds. Absent: systolic murmur, diastolic murmur, rubs, gallop, clicks GI/Abdominal exam: Present: soft, normal bowel sounds. Absent: distended, tenderness, guarding, rebound, rigid Extremities exam: Present: full ROM, tenderness (Mild soft tissue tenderness over lateral aspect of the left ankle overlying the ATF ligament superficial abrasion noted to the anterior aspect of left knee without significant tenderness), normal capillary refill. Absent: pedal edema, joint swelling, calf tenderness Back exam: Present: normal inspection, tenderness (Left lower back), paraspinal tenderness (Left lumbar paraspinal), other (No break in skin integrity. No bony point tenderness. No symptoms of cauda equina syndrome.). Absent: full ROM (Limited by left low back pain), CVA tenderness (R), CVA tenderness (L), muscle spasm, vertebral tenderness, rash noted Neurological exam: Present: alert, oriented X3, CN II-XII intact, reflexes normal, other (No saddle anesthesia. Straight leg raise is negative bilaterally). Absent: altered, normal gait, abnormal gait, motor sensory deficit Psychiatric exam: Present: normal affect, normal mood Skin exam: Present: warm, dry, intact, normal color. Absent: rash Course Vital Signs 03/15/22 03/15/22 19:46 20:23 Temperature 97.8 F Pulse Rate 64 Respiratory 18 18 Rate Blood Pressure 136/72 144/83 O2 Sat by Pulse 97 Oximetry Procedures - Procedures Initial comment: Abrasion to the left knee was cleansed thoroughly with normal saline. Sterile dressing was applied. Patient tolerated well Medical Decision Making - Medical Decision Making -There are no red flags for concerning back pathology. Specifically: -No history of cancer, this is not a mass effect, MRI not indicated. -No anticoagulation, this is not a bleed. -No fevers, no IVDU, this is not an infectious process. -With a normal neuro exam, and no urinary or bowel retention or incontinence, there is no clinical sign of motor defect or cauda equina - MRI is not indicated at this point. -No pulsating abdominal mass or risk factors for AAA. -Pain is relieved with rest, which is also less concerning. -I do not believe that x-rays or emergent MRI is indicated at this time. -We will treat symptomatically and discharge home with follow up instructions. -Stretching/strengthening exercise given to patient and they will be referred to physical therapy -Patient is instructed to use [id number] analgesics as directed on packaging for pain. Note that the patient is on Plavix but no other anticoagulation medications - Lab Data Patient presents with isolated injuries to the left ankle, anterior aspect of left knee and left lower back. Patient did not sustain a head injury or neck injury. Patient looks well otherwise. Patient has a normal gait. Only mild soft tissue tenderness to these areas. Superficial abrasion noted to the anterior aspect of the left knee. X-rays read as negative by radiology. I did review the films myself. Patient's pain was improved prior to discharge. Patient was told to return to the ER for any signs or symptoms worsen. Told to return immediately if any other problems arise. All questions answered. Treatment plan discussed. Patient in agreement Every effort has been made to ensure accuracy of this dictation. However, due to the limitations of electronic medical records and dictation devices, errors in charting still occur. Discussed conservative treatment with the patient. All questions answered. Batting Machine Operator Insulation is Dr. Cerna - Radiology Data Radiology results: report reviewed, image reviewed Disposition Clinical Impression: Contusion of lower back, Abrasion, left knee, initial encounter, Left ankle sprain Disposition: HOME SELF-CARE Condition: Good Instructions (If sedation given, give patient instructions): Abrasion (ED), Contusion in Adults (ED), Ankle Sprain (ED) Additional Instructions: Leave the bandage on for 24 hours. Then removed the bandage and wash gently with soap and water. Apply a thin layer of antibiotic ointment such as Neosporin or triple antibiotic ointment. Keep covered with a sterile bandage. Apply ice 20 minutes on and off to the other sore areas for the first 48 hours. Elevate when possible. Follow-up with your regular physician as directed. Return to the ER immediately if any symptoms worsen, new symptoms arise, or any other problems develop. Is patient prescribed a controlled substance at d/c from ED?: No Referrals: Nathanael Nogueira MD [Primary Care Provider] - 03/17/22 Time of Disposition: 21:27
--- NOTE | 2022-03-15 20:55 | XR ---
EXAMINATION TYPE: XR ankle complete LT DATE OF EXAM: 03/15/2022 COMPARISON: NONE HISTORY: Ankle pain TECHNIQUE: 3 views FINDINGS: Ankle mortise is anatomic. I see no fracture nor dislocation. There is mild soft tissue swe lling over the lateral malleolus. IMPRESSION: No soft tissue swelling. No fracture. Plantar calcaneal spurring noted.
--- NOTE | 2022-03-15 20:58 | XR ---
EXAMINATION TYPE: XR lumbar spine 2 or 3V DATE OF EXAM: 03/15/2022 COMPARISON: 07/10/2021 HISTORY: Back pain TECHNIQUE: 3 views FINDINGS: Lumbar vertebrae have normal alignment. There is posterior fusion surgery from L3 to S1. Th ere is disc prosthesis at L5-S1. Sacroiliac joints are intact. No compression fracture. IMPRESSION: Previous surgery. No acute bony abnormality. No change.
--- NOTE | 2022-03-15 21:00 | XR ---
EXAMINATION TYPE: XR knee complete LT DATE OF EXAM: 03/15/2022 COMPARISON: NONE HISTORY: Knee pain TECHNIQUE: 3 views FINDINGS: I see no fracture nor dislocation. Joint spaces are normal. There is mild spurring at the t ibial tubercle. No sign of joint effusion. IMPRESSION: No acute abnormality of the left knee.
[2022-03-15 22:11] VITALS: BP 135/71; PULSE 56; RESP 16
== END 2022-03-15 22:11 | disposition home or self-care (01) ==
LOC: EC 19:39
DX: S93.402A Sprain of unspecified ligament of left ankle, initial encounter (principal); S30.0XXA Contusion of lower back and pelvis, initial encounter; S80.212A Abrasion, left knee, initial encounter; I10 Essential (primary) hypertension; I25.10 Atherosclerotic heart disease of native coronary artery without angina pectoris; I25.2 Old myocardial infarction; E78.5 Hyperlipidemia, unspecified; M19.90 Unspecified osteoarthritis, unspecified site; M79.7 Fibromyalgia; E07.9 Disorder of thyroid, unspecified; F41.9 Anxiety disorder, unspecified; F31.9 Bipolar disorder, unspecified; F12.90 Cannabis use, unspecified, uncomplicated; Z79.02 Long term (current) use of antithrombotics/antiplatelets; Z79.82 Long term (current) use of aspirin; Z79.890 Hormone replacement therapy; Z87.891 Personal history of nicotine dependence; Z88.0 Allergy status to penicillin; Z88.1 Allergy status to other antibiotic agents; Z88.6 Allergy status to analgesic agent; W10.9XXA Fall (on) (from) unspecified stairs and steps, initial encounter; X50.1XXA Overexertion from prolonged static or awkward postures, initial encounter
CPT/HCPCS: 72100; 73562; 73610; 99284; 96372; J2270

== ENCOUNTER 2022-06-03 13:18 | Emergency (ER) | payer OTHER ==
[2022-06-03 13:30] VITALS: TEMP 97.6
--- NOTE | 2022-06-03 13:52 | ED ---
Back Pain [facility] - General Chief Complaint: Back Pain/Injury Stated Complaint: back pain Time Seen by Provider: 06/03/22 13:45 Source: patient, RN notes reviewed, old records reviewed Limitations: no limitations - History of Present Illness Initial Comments: Well-appearing 62-year-old female presents to the emergency room with chronic back pain and right hip pain. Patient denies any trauma. Patient was sent for x-rays and CT scan by her primary care Dr Buckner however patient states that she is not getting good pain control with her Percocet and Lyrica which prompted her to come to the emergency room. She denies any bowel or bladder incontinence, no fevers, she has had back surgery in the past in 2005 with effusion. She also has a history of fibromyalgia, coronary artery disease, hypertension, RI. MD Complaint: back pain -: month(s) Similar Symptoms Previously: Yes Radiation: right leg Severity scale (1-10): 10 Quality: sharp Consistency: constant Improves With: immobilization Worsens With: movement Associated Symptoms: denies other symptoms - Related Data Home Medications Medication Instructions Recorded Confirmed Amitriptyline HCl [Elavil] 25 mg PO HS 04/06/18 01/24/22 oxyCODONE-APAP 10-325MG [Percocet 1 tab PO TID PRN 04/06/18 01/24/22 10-325 mg] Oxybutynin Chloride [Ditropan XL] 10 mg PO HS 08/06/20 01/24/22 QUEtiapine FUMARATE [SEROquel] 300 mg PO HS 08/06/20 01/24/22 Isosorbide Mononitrate ER [Imdur] 60 mg PO DAILY 07/10/21 01/24/22 Metoprolol Succinate (ER) [Toprol 25 mg PO HS 07/10/21 01/24/22 XL] Nitroglycerin Sl Tabs [Nitrostat] 0.4 mg SL Q5M PRN 07/10/21 01/24/22 estradioL [Estrace] 1 mg PO DAILY 07/10/21 01/24/22 lisinopriL [Zestril] 5 mg PO DAILY 07/10/21 01/24/22 Pregabalin [Lyrica] 150 mg PO TID 07/18/21 01/24/22 Clopidogrel Bisulfate [Plavix] 75 mg PO DAILY 01/22/22 01/24/22 DULoxetine HCL 40 mg PO HS 01/22/22 01/24/22 Nicotine Patch(Dose Unknown) 1 patch TOPICAL DIRECTED 01/22/22 01/24/22 ALPRAZolam [Xanax] 0.25 mg PO DAILY 01/24/22 01/24/22 Previous Rx's Medication Instructions Recorded Levothyroxine Sodium [Synthroid] 125 mcg PO DAILY@0630 #30 tab 08/09/20 Albuterol Inhaler [Ventolin Hfa 1 puff INHALATION RT-TID PRN 30 07/21/21 Inhaler] Days #8 gm Aspirin 81 mg PO DAILY 30 Days #30 tab 07/21/21 busPIRone HCl [Buspar] 10 mg PO BID #60 tab 01/14/22 Cyclobenzaprine [Flexeril] 10 mg PO TID PRN #15 tab 06/03/22 Lidocaine 5% Patch [Lidoderm] 1 patch TOPICAL DAILY PRN 30 Days 06/03/22 #30 patch Allergies Allergy/AdvReac Type Severity Reaction Status Date / Time ciprofloxacin [From Cipro] Allergy Anaphylaxis Verified 06/03/22 13:30 Penicillins Allergy Swelling/Hi Verified 06/03/22 13:30 ves vancomycin Allergy Dyspnea Verified 06/03/22 13:30 ketorolac tromethamine AdvReac Itching Verified 06/03/22 13:30 [From Toradol] NSAIDS (Non-Steroidal AdvReac STOMACH Verified 06/03/22 13:30 Anti-Inflamma ULCER Review of Systems ROS Statement: Those systems with pertinent positive or pertinent negative responses have been documented in the HPI. ROS Other: All systems not noted in ROS Statement are negative. Past Medical History Past Medical History: Coronary Artery Disease (CAD), Chest Pain / Angina, Fibromyalgia, Hyperlipidemia, Hypertension, Myocardial Infarction (RI), Oste oarthritis (OA), Thyroid Disorder Additional Past Medical History / Comment(s): interstitial cystitis; constipation, gallstones, Last Myocardial Infarction Date:: 2013 History of Any Multi-Drug Resistant Organisms: None Reported Past Surgical History: Back Surgery, Bladder Surgery, Breast Surgery, Heart Catheterization With Stent, Hysterectomy, Orthopedic Surgery Additional Past Surgical History / Comment(s): bladder stimulator, neck surgery, total 6 stents- back fusion, neck fusion, jeff bunionectomy Past Anesthesia/Blood Transfusion Reactions: No Reported Reaction Date of Last Stent Placement:: approx 6 yrs ago Past Psychological History: Anxiety, Bipolar, Depression, Panic Disorder Smoking Status: Former smoker Past Alcohol Use History: None Reported Past Drug Use History: Marijuana - Past Family History Father Family Medical History: Cancer General Exam Limitations: no limitations General appearance: alert, in no apparent distress Head exam: Present: atraumatic Neck exam: Present: normal inspection, full ROM. Absent: tenderness, meningismus, lymphadenopathy Respiratory exam: Absent: respiratory distress, accessory muscle use Cardiovascular Exam: Present: regular rate Extremities exam: Present: normal capillary refill. Absent: pedal edema Back exam: Present: tenderness, paraspinal tenderness (LS spine). Absent: CVA tenderness (R), CVA tenderness (L), muscle spasm, vertebral tenderness, rash noted Expanded Back exam: Absent: saddle anesthesia Back exam: Positive Straight Leg Raise: Right, Left Neurological exam: Present: alert, oriented X3 Psychiatric exam: Present: normal affect, normal mood Skin exam: Present: warm, dry, intact, normal color. Absent: cyanosis, diaphoretic, petechiae, pallor Course Vital Signs 06/03/22 06/03/22 13:28 14:24 Temperature 97.6 F Pulse Rate 61 62 Respiratory 20 18 Rate Blood Pressure 155/71 145/81 O2 Sat by Pulse 98 96 Oximetry Medical Decision Making - Medical Decision Making X-rays and CT scan ordered by Dr. Buckner show: X-ray of the right femur shows no acute fracture, hip and knee joint arthropathy. X-ray is completely right hip shows no acute fracture. Arthropathy correlate for femoral acetabular impingement CT of the lumbar spine with and without contrast shows no evidence of fracture of the lumbar spine. Postsurgical changes to the lower lumbar spine with hardware is in place and intact. There is moderate multilevel disc degeneration worse L3-L4 and L4-L5 with moderate neural foraminal stenosis bilaterally at L3- L4 and moderate left neural foraminal stenosis at L4-L5 Patient's last back surgery was 2005. Patient denies trauma, fevers, has no focal neurological deficits, no history of cancer, no IV drug use. Patient is currently taking Percocet 4 times a day, with Lyrica. She is also on aspirin and Plavix. She was directed to continue these medications. She was also given a prescription for Lidoderm patches and Flexeril. She was given Dilaudid in the emergency room and she is agreeable to being discharged home with follow-up with her primary care doctor. Case discussed with Dr. Schneider Disposition Clinical Impression: Chronic low back pain Disposition: HOME SELF-CARE Condition: Good Instructions (If sedation given, give patient instructions): Back Pain (ED), Lower Back Exercises (ED) Additional Instructions: Continue taking your Percocet and Lyrica as previously prescribed along with your aspirin. Use Lidoderm patches and Flexeril as needed. Follow-up with your primary care doctor for continuation of care. Return to the emergency room with any new or concerning symptoms including fever, loss of bowel or bladder incontinence or inability to ambulate. Prescriptions: Cyclobenzaprine [Flexeril] 10 mg PO TID PRN #15 tab PRN Reason: Muscle Spasm Lidocaine 5% Patch [Lidoderm] 1 patch TOPICAL DAILY PRN 30 Days #30 patch PRN Reason: pain Is patient prescribed a controlled substance at d/c from ED?: No Referrals: Nathanael Nogueira MD [Primary Care Provider] - 1-2 days Time of Disposition: 14:19
[2022-06-03] MEDS ORDERED: HYDROmorphone 1 MG/ML 1 ML SYRINGE IM STA (14:02)
[2022-06-03] MEDS ORDERED: LIDOCAINE 5% PATCH TOPICAL SCH (14:15)
[2022-06-03 14:26] VITALS: BP 145/81; PULSE 62; RESP 18
== END 2022-06-03 14:34 | disposition home or self-care (01) ==
LOC: EC 13:18
DX: M54.50 Low back pain, unspecified (principal); G89.29 Other chronic pain; Z87.891 Personal history of nicotine dependence; I10 Essential (primary) hypertension; E78.5 Hyperlipidemia, unspecified; I25.2 Old myocardial infarction; I25.10 Atherosclerotic heart disease of native coronary artery without angina pectoris; Z88.0 Allergy status to penicillin; Z88.1 Allergy status to other antibiotic agents; Z88.8 Allergy status to other drugs, medicaments and biological substances; Z79.51 Long term (current) use of inhaled steroids; Z79.899 Other long term (current) drug therapy
CPT/HCPCS: 96372; 99284; J1170

== ENCOUNTER → 2022-06-03 | Outpatient (CLI) | payer OTHER ==
--- NOTE | 2022-06-03 13:25 | XR ---
EXAMINATION TYPE: XR femur RT DATE OF EXAM: 06/03/2022 COMPARISON: 10/10/2019 HISTORY: Pain TECHNIQUE: 4 views submitted FINDINGS: Arthropathy of the hip joint. Arthropathy of the joint. No acute fracture or dislocation. S mall amount of fluid in the suprapatellar bursa. Small area of ossification or exostosis of the right inferior pubic ramus. Stable prior exams. Incidental note made of contrast within the bladder. IMPRESSION: 1. No acute fracture. 2. Hip and knee joint arthropathy.
--- NOTE | 2022-06-03 13:27 | XR ---
EXAMINATION TYPE: XR Hip Complete RT DATE OF EXAM: 06/03/2022 COMPARISON: 10/10/2019 HISTORY: Pain TECHNIQUE: 2 views submitted FINDINGS: Consecutive narrowing of the hip joint with hyperostosis of the acetabulum. There is an exo stosis or spur extending off the right inferior pubic ramus stable. Stimulator device noted. Suspect contrast within the bladder was partially obscured the pubic symphysis and superior ramus. Remaining osseous structures intact. IMPRESSION: 1. No acute fracture as visualized. As noted above contrast the bladder obscures portion of the pubic ramus. 2. Arthropathy correlate for femoral acetabular impingement.
--- NOTE | 2022-06-03 13:33 | CT ---
EXAMINATION TYPE: CT lumbar spine wo/w con CT DLP: 1141.4 mGycm, Automated exposure control for dose reduction was used. DATE OF EXAM: 06/03/2022 1:21 PM COMPARISON: CT abdomen pelvis 01/10/2022 and lumbar spine and 24/06/2015.. 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 Soft tissue and bone windows in coronal and sagittal planes were obtained and reviewed. FINDINGS: Alignment: There are 5 lumbar type vertebral bodies with postsurgical alignment. Bone: No evidence of acute fracture. There is fixation hardware involving L4, L5 and S1. Hardware daniel ears intact. There is discectomy at L5-S1. Scattered dystrophic calcifications seen in the surgical b ed. Multilevel facet joint arthropathy seen throughout the lower lumbar spine. Marginal osteophytes a re seen throughout the anterior and lateral aspects of the vertebral bodies. Discs: T12-L1: No spinal canal or neural foraminal stenosis is identified. L1-L2: No spinal canal or neural foraminal stenosis is identified. L2-L3: No spinal canal or neural foraminal stenosis is identified. L3-L4: No spinal canal stenosis is identified. Facet joint arthropathy is present at this level with moderate bilateral neural foraminal stenosis L4-L5: Laminectomy changes at this level. No spinal canal stenosis is identified. Facet joint arthro festus is present at this level with moderate left and mild right neural foraminal stenosis L5-S1: Laminectomy changes without gross evidence for significant spinal canal stenosis. The neural f oramen appear patent. No spinal canal or neural foraminal stenosis is identified. Other: Mild atherosclerosis of the arterial vasculature. IMPRESSION: 1. No evidence of fracture of the lumbar spine. 2. Postsurgical changes to the lower lumbar spine with hardware in place and intact. 3. Moderate multilevel disc degeneration changes worse at L3-L4 and L4-L5 with moderate neural forami nal stenosis bilaterally at L3-L4 and moderate left neural foraminal stenosis at L4-L5.
== END | disposition home or self-care (01) ==
LOC: RADCTMAIN 12:07
PROVIDERS: ATTEND Internal Medicine
DX: M47.816 Spondylosis without myelopathy or radiculopathy, lumbar region (principal); M51.36 Other intervertebral disc degeneration, lumbar region; M99.73 Connective tissue and disc stenosis of intervertebral foramina of lumbar region
CPT/HCPCS: 73502; 73552; 72133; Q9967

== ENCOUNTER → 2022-06-16 | Outpatient (CLI) | payer OTHER ==
[2022-06-16 08:29] VITALS: BP 138/81; PULSE 67; RESP 18; TEMP 98.1
--- NOTE | 2022-06-16 16:17 | P.PAINPG ---
PQRS Measure Charge Sheet Comment: HISTORY OF PRESENT ILLNESS: 62 yr old female as a referral from Dr. Nogueira presents today w severe and chronic LBP secondary to neuroforaminal stenoses, spondylosis and facet arthropathy without myelopathy for evaluation. Patient states her pain level is 8 out of 10 in intensity, constant, sharp in character, localized in the lower aspect of her lumbar spine with radiation of sharp pain down the lower extremities, right greater than left. Pain is provoked with standing and climbing. Pain is relieved with medications (Percocet 10/325 mg), Lidoderm patches, LESIs in the past, ice, heat, home exercise regimen, massage is at home, laying supine and rest. Patient states she had physical therapy in the past which was ineffective in alleviating her pain. Patient also states she is contraindicated for chiropractic treatments due to lumbar spine hardware placement. PMH: CAD, Angina, Fibromyalgia, [place] (2016), OA, Thyroid Disorder, MDD/ Anxiety PSH: Lumbar Laminectomy w Hardware, Cardiac Cath w Stent (2018, 2019), Hysterectomy, Breast Surgery, Bladder Stimulator (2012), Cervical Surgery SH: Daily tobacco use, No ETOH abuse, +Cannabis use FH: Non contributory All: See list Meds: See list REVIEW OF ORGAN SYSTEMS: CONSTITUTIONAL: No fevers or chills. No recent weight loss. NEUROLOGICAL: + numbness and tingling along the distal extremities. No seizure disorders or headaches. MUSCULOSKELETAL: + pain PSYCHIATRIC: Denies current depression or suicidal thoughts. Physical Examinations : Constitutional : Cooperative , not in acute distress . Neurologic : Cranial nerve II to XII intact. No focal neurological deficits. Psychiatric : alert & oriented x 3. Matching mood & appropriate affect. Judgment & insight intact. Musculoskeletal : Cervical Spine Motor strength in the deltoid and biceps: Normal right side. Normal Left side Motor strength biceps and the wrist extensors: Normal right side . Normal left side Motor strength in the triceps muscle: Normal right side. Normal left side Deep tendon reflexes: Normal at the biceps. Normal at Brachioradialis. Normal at triceps Vertebral body tenderness to deep palpation over Cervical facet loading test: positive bilaterally Spurling test: positive bilaterally Neck distraction test: positive bilaterally Charissa sign: positive bilaterally Lumbar spine Motor strength lower extremities ,thigh and legs 5/5 Right side , 5/5 Left side Deep tendon reflexes : Normal Knee Jerk. Normal Ankle Jerk Vertebral body tenderness over L5, S1 Lumbar facet Loading Test: positive Right / positive Left Range of motion of the lumbar spine Flexion 30 degrees, extension 10 degrees Straight Leg Raise test: Left/ Right positive at degree Griselda test: positive right / positive left. Severe tenderness over the Sacroiliac joint on the Right / Left sides Gaenslen test: positive bilaterally Seated flexion test: positive bilaterally. Sacral spine : Severe tenderness over the Sacroiliac joint: right side / left side Range of motion: Flexion of the lumbar spine <60 degrees Range of motion: Extension of the lumbar spine <20 degrees Gaenslen's Test positive Daren's Test positive Griselda test: positive right side / left side Thigh Thrust Test Sacral Thrust Test Imaging: CT without contrast of the lumbar spine on 06/03/22 reviewed Assessment/ Plan : Lumbar spondylosis, lumbar DDD Recommendation of caudal REBECA with lysis. Risks, benefits of procedure discussed and patient verbalized understanding. Admits to Plavix use and denies a medical history of diabetes. Protocol for discontinuation/ continuation of medications darwin procedure discussed. All questions answered. I have spent greater than 30 minutes on patient care today. Dr Mcclain was available by phone for the evaluation of this patient. The time was used to review the medical records including relevant urine studies and Prescription history (MAPs), review of the available imaging, evaluation and examination of the patient, coordination of care with the medical staff and if applicable referring physicians, as well as creation of the medical record PQRS Narrative: Smoking Status Current every day smoker Home Medications: Ambulatory Orders Amitriptyline HCl [Elavil] 25 mg PO HS 04/06/18 oxyCODONE-APAP 10-325MG [Percocet 10-325 mg] 1 tab PO TID PRN 04/06/18 Oxybutynin Chloride [Ditropan XL] 10 mg PO HS 08/06/20 QUEtiapine FUMARATE [SEROquel] 300 mg PO HS 08/06/20 Levothyroxine Sodium [Synthroid] 125 mcg PO DAILY@0630 #30 tab 08/09/20 Isosorbide Mononitrate ER [Imdur] 60 mg PO DAILY 07/10/21 Metoprolol Succinate (ER) [Toprol XL] 25 mg PO HS 07/10/21 Nitroglycerin Sl Tabs [Nitrostat] 0.4 mg SL Q5M PRN 07/10/21 estradioL [Estrace] 1 mg PO DAILY 07/10/21 lisinopriL [Zestril] 5 mg PO DAILY 07/10/21 Pregabalin [Lyrica] 150 mg PO TID 07/18/21 Albuterol Inhaler [Ventolin Hfa Inhaler] 1 puff INHALATION RT-TID PRN 30 Days #8 gm 07/21/21 Aspirin 81 mg PO DAILY 30 Days #30 tab 07/21/21 busPIRone HCl [Buspar] 10 mg PO BID #60 tab 01/14/22 Clopidogrel Bisulfate [Plavix] 75 mg PO DAILY 01/22/22 DULoxetine HCL 40 mg PO HS 01/22/22 Nicotine Patch(Dose Unknown) 1 patch TOPICAL DIRECTED 01/22/22 ALPRAZolam [Xanax] 0.25 mg PO DAILY 01/24/22 Cyclobenzaprine [Flexeril] 10 mg PO TID PRN #15 tab 06/03/22 Lidocaine 5% Patch [Lidoderm] 1 patch TOPICAL DAILY PRN 30 Days #30 patch 06/03/22 Controlled Substance Measures - Controlled Substance Measures Is patient prescribed a controlled substance at discharge?: No
== END ==
LOC: PNWHC3 07:35
PROVIDERS: ATTEND Specialist
DX: M47.816 Spondylosis without myelopathy or radiculopathy, lumbar region (principal); M51.36 Other intervertebral disc degeneration, lumbar region; G89.29 Other chronic pain; I25.10 Atherosclerotic heart disease of native coronary artery without angina pectoris; F41.9 Anxiety disorder, unspecified; F32.9 Major depressive disorder, single episode, unspecified; Z88.1 Allergy status to other antibiotic agents; Z88.0 Allergy status to penicillin; Z88.5 Allergy status to narcotic agent; Z88.6 Allergy status to analgesic agent; F17.200 Nicotine dependence, unspecified, uncomplicated
CPT/HCPCS: 99211

== ENCOUNTER 2022-06-17 20:47 | Inpatient (IN) | payer MEDICAID, OTHER ==
[2022-06-18] MEDS ORDERED: HYDROmorphone 1 MG/ML 1 ML SYRINGE IM STA (00:08)
--- NOTE | 2022-06-18 00:22 | ED ---
General Adult HPI - General Chief complaint: Psychiatric Symptoms Stated complaint: Mental health eval Time Seen by Provider: 06/17/22 23:58 Source: patient, RN notes reviewed, old records reviewed Mode of arrival: ambulatory Limitations: no limitations - History of Present Illness Initial comments: 62-year-old female presenting for mental health evaluation per patient has increased depression and anxiety and states she does not want to live anymore. She denies suicide attempt. She states she is having failing physical health and this is worsening her mental state of health. - Related Data Home Medications Medication Instructions Recorded Confirmed Amitriptyline HCl [Elavil] 25 mg PO HS 04/06/18 01/24/22 oxyCODONE-APAP 10-325MG [Percocet 1 tab PO TID PRN 04/06/18 01/24/22 10-325 mg] Oxybutynin Chloride [Ditropan XL] 10 mg PO HS 08/06/20 01/24/22 QUEtiapine FUMARATE [SEROquel] 300 mg PO HS 08/06/20 01/24/22 Isosorbide Mononitrate ER [Imdur] 60 mg PO DAILY 07/10/21 01/24/22 Metoprolol Succinate (ER) [Toprol 25 mg PO HS 07/10/21 01/24/22 XL] Nitroglycerin Sl Tabs [Nitrostat] 0.4 mg SL Q5M PRN 07/10/21 01/24/22 estradioL [Estrace] 1 mg PO DAILY 07/10/21 01/24/22 lisinopriL [Zestril] 5 mg PO DAILY 07/10/21 01/24/22 Pregabalin [Lyrica] 150 mg PO TID 07/18/21 01/24/22 Clopidogrel Bisulfate [Plavix] 75 mg PO DAILY 01/22/22 01/24/22 DULoxetine HCL 40 mg PO HS 01/22/22 01/24/22 Nicotine Patch(Dose Unknown) 1 patch TOPICAL DIRECTED 01/22/22 01/24/22 ALPRAZolam [Xanax] 0.25 mg PO DAILY 01/24/22 01/24/22 Previous Rx's Medication Instructions Recorded Levothyroxine Sodium [Synthroid] 125 mcg PO DAILY@0630 #30 tab 08/09/20 Albuterol Inhaler [Ventolin Hfa 1 puff INHALATION RT-TID PRN 30 07/21/21 Inhaler] Days #8 gm Aspirin 81 mg PO DAILY 30 Days #30 tab 07/21/21 busPIRone HCl [Buspar] 10 mg PO BID #60 tab 01/14/22 Cyclobenzaprine [Flexeril] 10 mg PO TID PRN #15 tab 06/03/22 Lidocaine 5% Patch [Lidoderm] 1 patch TOPICAL DAILY PRN 30 Days 06/03/22 #30 patch Allergies Allergy/AdvReac Type Severity Reaction Status Date / Time ciprofloxacin [From Cipro] Allergy Anaphylaxis Verified 06/18/22 05:11 Penicillins Allergy Swelling/Hi Verified 06/18/22 05:11 ves vancomycin Allergy Dyspnea Verified 06/18/22 05:11 ketorolac tromethamine AdvReac Itching Verified 06/18/22 05:11 [From Toradol] NSAIDS (Non-Steroidal AdvReac STOMACH Verified 06/18/22 05:11 Anti-Inflamma ULCER Review of Systems ROS Statement: Those systems with pertinent positive or pertinent negative responses have been documented in the HPI. ROS Other: All systems not noted in ROS Statement are negative. Past Medical History Past Medical History: Coronary Artery Disease (CAD), Chest Pain / Angina, Fibromyalgia, Hyperlipidemia, Hypertension, Myocardial Infarction ([place]), Osteoarthritis (OA), Thyroid Disorder Additional Past Medical History / Comment(s): interstitial cystitis; constipation, gallstones, Last Myocardial Infarction Date:: 2013 History of Any Multi-Drug Resistant Organisms: None Reported Past Surgical History: Back Surgery, Bladder Surgery, Breast Surgery, Heart Catheterization With Stent, Hysterectomy, Orthopedic Surgery Additional Past Surgical History / Comment(s): bladder stimulator, neck surgery, total 6 stents- back fusion, neck fusion, jeff bunionectomy Past Anesthesia/Blood Transfusion Reactions: No Reported Reaction Date of Last Stent Placement:: approx 6 yrs ago Past Psychological History: Anxiety, Bipolar, Depression, Panic Disorder Smoking Status: Former smoker Past Alcohol Use History: None Reported Past Drug Use History: None Reported - Past Family History Father Family Medical History: Cancer General Exam Limitations: no limitations General appearance: alert, anxious Head exam: Present: atraumatic, normocephalic Eye exam: Present: normal appearance, PERRL ENT exam: Present: normal exam Neck exam: Present: normal inspection. Absent: tenderness, meningismus Respiratory exam: Present: normal lung sounds bilaterally. Absent: respiratory distress, wheezes Cardiovascular Exam: Present: regular rate, normal rhythm GI/Abdominal exam: Present: soft. Absent: distended, tenderness, guarding Extremities exam: Present: normal inspection, normal capillary refill Neurological exam: Present: alert, oriented X3, CN II-XII intact. Absent: motor sensory deficit Psychiatric exam: Present: anxious, suicidal ideation Skin exam: Present: warm, dry, intact. Absent: cyanosis, diaphoretic Course Vital Signs 06/17/22 22:07 Temperature 98.0 F Pulse Rate 74 Respiratory 16 Rate Blood Pressure 114/72 O2 Sat by Pulse 98 Oximetry - Reevaluation(s) Reevaluation #1: 06/18/22 00:22 Clear for EPS evaluation Medical Decision Making - Medical Decision Making 62-year-old female presenting for mental health evaluation, evaluated by EPS and felt to require inpatient psychiatric evaluation and treatment. - Lab Data Lab Results 06/18/22 Range/Units 03:19 Coronavirus (PCR) Not Detected (Not Detectd) Disposition Clinical Impression: Suicidal ideation, Depression Disposition: ADMITTED IP TO THIS HOSP Condition: Stable Is patient prescribed a controlled substance at d/c from ED?: No Time of Disposition: 01:50
[2022-06-18] MEDS ORDERED: HALOPERIDOL LACTATE 5 MG/ML 1 ML VIAL IM PRN (05:01)
[2022-06-18] MEDS ORDERED: MAG HYDROX/AL HYDROX/SIMETH 30 ML CUP PO PRN (05:01)
[2022-06-18] MEDS ORDERED: MAGNESIUM HYDROXIDE 2,400 MG/10 ML CUP PO PRN (05:01)
[2022-06-18] MEDS ORDERED: ACETAMINOPHEN TAB 325 MG TAB PO PRN (05:01)
[2022-06-18] MEDS ORDERED: NITROGLYCERIN SL TABS 0.4 MG TAB SUBLINGUAL PRN (05:04)
[2022-06-18] MEDS ORDERED: LORazepam 2 MG/ML INJ IM PRN (05:10)
[2022-06-18] MEDS ORDERED: haloperidoL 5 MG TAB PO PRN (05:10)
[2022-06-18] MEDS: LORazepam 1 MG TAB PO PRN ×2 (06:07→13:32)
[2022-06-18] MEDS: LEVOTHYROXINE 125 MCG TAB PO SCH (06:42)
[2022-06-18] MEDS: oxyCODONE-APAP 10-325MG 1 EACH TAB PO PRN ×2 (06:42→13:50)
[2022-06-18] MEDS ORDERED: ALBUTEROL INHALER 60 PUFF/8 GM INHALER (MHU) INHALATION PRN (08:00)
[2022-06-18] MEDS: NICOTINE 14MG/24HR PATCH TRANSDERM SCH (08:14)
[2022-06-18] MEDS: lisinopriL 5 MG TAB PO SCH (10:09)
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
--- NOTE | 2022-06-18 15:49 | P.CONS ---
History of Present Illness - Reason for Consult Consult date: 06/18/22 - History of Present Illness Patient is a 62-year-old female with PMH of CAD, fibromyalgia, hypertension, dyslipidemia, hypothyroidism, chronic back pain that presents to the ED for behavioral disturbances. She has been admitted to mental health unit for further management of symptoms. [facility] has been consulted for medical management of this patient. Patient reports chronic back pain and history of multiple surgeries which she is unable to specify further. She also has a history of fibromyalgia. She takes Cymbalta, Lyrica and Percocet as needed. She currently reports lower back pain that radiates to the right lower extremity. Pain is sharp and stabbing in nature. Pain is 10 out of 10 in severity. Pain is restricting her from walking. She denies any bladder or bowel incontinence. She denies any saddle anesthesia. She denies any headache, lower extremity edema, nausea or vomiting, fever or chills, cough, chest pain, shortness of breath, palpitations, changes in urination or bowel habits. No changes in appetite or weight. She denies any numbness/weakness/tingling of the extremities. Review of systems has been performed and is negative except above. Her vital signs are stable. General: non toxic, no distress, appears at stated age Derm: warm, dry Head: atraumatic, normocephalic, symmetric Eyes: EOMI, no lid lag, anicteric sclera Mouth: no lip lesion, mucus membranes moist Cardiovascular: S1S2 reg, no murmur Lungs: CTA bilateral, no rhonchi, no rales , no accessory muscle use Abdominal: soft, nontender to palpation, no guarding, no appreciable organomegaly Ext: no gross muscle atrophy, no edema, no contractures Neuro: CN II-XI grossly intact, no focal neuro deficits Psych: Alert, oriented, appropriate affect #Right lower extremity radiculopathy #Fibromyalgia #CAD #Hypertension #Hypothyroidism #Smoker Would recommend restarting Lyrica and Cymbalta. Continue Percocet as needed. Restart aspirin, Plavix and Crestor. Continue metoprolol. Obtain lipid panel and hemoglobin A1c. Restart Imdur, and lisinopril. Monitor vitals, adjust medication if necessary. Restart Synthroid. Obtain TSH. Patient has been offered a nicotine patch. Thank you for this consultation. Please call [facility] with additional questions or concerns. Past Medical History Past Medical History: Coronary Artery Disease (CAD), Chest Pain / Angina, Fibromyalgia, Hyperlipidemia, Hypertension, Myocardial Infarction ([place]), Osteoarthritis (OA), Thyroid Disorder Additional Past Medical History / Comment(s): interstitial cystitis; constipation, gallstones, Last Myocardial Infarction Date:: 2013 History of Any Multi-Drug Resistant Organisms: None Reported Past Surgical History: Back Surgery, Bladder Surgery, Breast Surgery, Heart Catheterization With Stent, Hysterectomy, Orthopedic Surgery Additional Past Surgical History / Comment(s): bladder stimulator, neck surgery, total 6 stents- back fusion, neck fusion, jeff bunionectomy Past Anesthesia/Blood Transfusion Reactions: No Reported Reaction Date of Last Stent Placement:: approx 6 yrs ago Smoking Status: Current some day smoker - Past Family History Father Family Medical History: Cancer Medications and Allergies Home Medications Medication Instructions Recorded Confirmed Type oxyCODONE-APAP 10-325MG [Percocet 1 tab PO TID PRN 04/06/18 06/18/22 History 10-325 mg] Oxybutynin Chloride [Ditropan XL] 10 mg PO DAILY 08/06/20 06/18/22 History QUEtiapine FUMARATE [SEROquel] 300 mg PO HS 08/06/20 06/18/22 History Isosorbide Mononitrate ER [Imdur] 60 mg PO DAILY 07/10/21 06/18/22 History Metoprolol Succinate (ER) [Toprol 25 mg PO DAILY 07/10/21 06/18/22 History XL] estradioL [Estrace] 1 mg PO DAILY 07/10/21 06/18/22 History lisinopriL [Zestril] 5 mg PO DAILY 07/10/21 06/18/22 History Pregabalin [Lyrica] 150 mg PO TID 07/18/21 06/18/22 History Aspirin 81 mg PO DAILY 30 Days #30 tab 07/21/21 06/18/22 Rx Clopidogrel Bisulfate [Plavix] 75 mg PO DAILY 01/22/22 06/18/22 History DULoxetine HCL 40 mg PO DAILY 01/22/22 06/18/22 History ALPRAZolam [Xanax] 0.25 mg PO BID PRN 01/24/22 06/18/22 History Albuterol Inhaler [Ventolin Hfa 2 puff INHALATION RT-Q6H PRN 06/18/22 06/18/22 History Inhaler] Levothyroxine Sodium [Synthroid] 125 mcg PO DAILY 06/18/22 06/18/22 History Omeprazole 20 mg PO AC-[id number] 06/18/22 06/18/22 History Rosuvastatin [Crestor] 10 mg PO DAILY 06/18/22 06/18/22 History Allergies Allergy/AdvReac Type Severity Reaction Status Date / Time ciprofloxacin [From Cipro] Allergy Anaphylaxis Verified 06/18/22 13:40 Penicillins Allergy Swelling/Hi Verified 06/18/22 13:40 ves vancomycin Allergy Dyspnea Verified 06/18/22 13:40 ketorolac tromethamine AdvReac Itching Verified 06/18/22 13:40 [From Toradol] NSAIDS (Non-Steroidal AdvReac STOMACH Verified 06/18/22 13:40 Anti-Inflamma ULCER Physical Exam Vitals: Vital Signs Temp Pulse Pulse Pulse Resp BP BP 06/18/22 10:11 65 06/18/22 08:00 60 133/64 06/18/22 05:48 97.1 F L 64 15 160/86 06/17/22 22:07 98.0 F 74 16 114/72 BP Pulse Ox 06/18/22 10:11 125/53 06/18/22 08:00 06/18/22 05:48 94 L 06/17/22 22:07 98 Intake and Output 06/18/22 06/18/22 06/18/22 06:59 14:59 22:59 Other: Weight 70.845 kg
[2022-06-18] MEDS: PREGABALIN 75 MG CAP PO SCH ×2 (16:12→21:02)
[2022-06-18] MEDS ORDERED: OXYBUTYNIN 10 MG TAB.ER.24 PO SCH (21:00)
[2022-06-18] MEDS ORDERED: QUEtiapine 400 MG TAB PO SCH (21:00)
[2022-06-18] MEDS ORDERED: METOPROLOL SUCCINATE (ER) 25 MG TAB.ER.24H PO SCH (21:00)
[2022-06-19] MEDS ORDERED: LEVOTHYROXINE 125 MCG TAB PO SCH (06:30)
[2022-06-19] MEDS: LEVOTHYROXINE 125 MCG TAB PO SCH (06:32)
[2022-06-19 06:57] VITALS: PULSE 55; RESP 16; TEMP 98
[2022-06-19] MEDS: NICOTINE 14MG/24HR PATCH TRANSDERM SCH (08:28)
[2022-06-19] MEDS: PREGABALIN 75 MG CAP PO SCH (08:30)
[2022-06-19] MEDS: LORazepam 1 MG TAB PO PRN (08:30)
[2022-06-19] MEDS: lisinopriL 5 MG TAB PO SCH (08:31)
[2022-06-19 08:34] VITALS: BP 123/86
[2022-06-19] MEDS ORDERED: ASPIRIN 81 MG PO SCH (09:00)
[2022-06-19] MEDS ORDERED: CLOPIDOGREL 75 MG TAB PO SCH (09:00)
[2022-06-19] MEDS ORDERED: ISOSORBIDE MONONITRATE ER 60 MG TAB.ER.24H PO SCH (09:00)
[2022-06-19] MEDS ORDERED: ATORVASTATIN 20 MG TAB PO SCH (09:00)
[2022-06-19] MEDS ORDERED: DULoxetine HCL 20 MG CAPSULE.DR PO SCH (09:00)
[2022-06-19 11:38] LABS: Basophils % (A) 1 %; Eosinophils # (A) 0.1 k/uL (0-0.7); Eosinophils % (A) 2 %; HCT 52.6 % (34.0-46.0); HGB 16.8 gm/dL (11.4-16.0); Lymphocytes # (A) 1.8 k/uL (1.0-4.8); Lymphocytes % (A) 21 %; MCH 33.3 pg (25.0-35.0); MCHC 31.9 g/dL (31.0-37.0); MCV 104.3 fL (80.0-100.0); Macrocytosis Slight; Mean Platelet Volume 8.2; Monocytes # (A) 0.4 k/uL (0-1.0); Monocytes % (A) 5 %; Neutrophils # (A) 5.7 k/uL (1.3-7.7); Neutrophils % (A) 70 %; Platelet Count 170 k/uL (150-450); RBC 5.04 m/uL (3.80-5.40); RDW 12.3 % (11.5-15.5); WBC 8.2 k/uL (3.8-10.6)
--- NOTE | 2022-06-19 11:48 | P.PN ---
Progress Note - Text Progress Note Date: 06/19/22 S&O: Patient was seen in rounds. She is wearing street clothes today. She said she feels a lot better and is asking to take Percocet in addition to Lyrica. Yesterday she had agreed to take only Lyrica and not Percocet. As noted in H&P yesterday she has been asking for benzos and narcotics repeatedly in addition to Lyrica. She was also continued on Cymbalta by the medical doctor. However she is on quite a high dose of Seroquel which is an antidepressant and Cymbalta is not really a good idea to take it especially since she is on narcotics Lyrica and benzos. After discussing all these things she said she will call her doctor to get her narcotics prescription and is thinking of going home today or tomorrow. This is a white overweight ambulatory female with good hygiene. She is quite relaxed and does not show any psychomotor agitation or retardation. Her speech is spontaneous relevant and goal-directed. Her mood is euthymic to cheerful and does not get tearful today at all. This is very unlike if she really has a depressive disorder which does not get better overnight. Continues to deny hallucinations, delusional thinking, suicidal and homicidal ideas. Her sensorium is clear. A&P: Continue Seroquel and other medications, therapy and supervision. She was again advised to cut down on her narcotics and benzodiazepines. She was also advised that I cannot write prescription for anything except for Seroquel and she has to contact her doctor who had prescribed all other medications which are controlled substances. She agreed with this and will tell me if she thinks she is ready to go home today or tomorrow later on today.
[2022-06-19 11:56] LABS: ALT 11 U/L (4-34); AST 21 U/L (14-36); African American GFR (CKD) 79 (>60 ml/min/1.73 sqM); Albumin 4.6 g/dL (3.5-5.0); Alkaline Phosphatase 96 U/L (38-126); Anion Gap 11 mmol/L; Bilirubin, Delta 0.4 mg/dL (0.0-0.2); Bilirubin,Unconjugated 0.2 mg/dL (0.0-1.1); Blood Urea Nitrogen 17 mg/dL (7-17); Calcium 9.7 mg/dL (8.4-10.2); Carbon Dioxide 27 mmol/L (22-30); Chloride 102 mmol/L (98-107); Glucose 58 mg/dL (74-99); Non-African American GFR(CKD) 68 (>60 ml/min/1.73 sqM); Sodium 140 mmol/L (137-145); Total Bilirubin 0.6 mg/dL (0.2-1.3); Total Protein 7.2 g/dL (6.3-8.2)
--- NOTE | 2022-06-19 12:46 | P.DS ---
Providers Date of admission: 06/18/22 05:00 Expected date of discharge: 06/19/22 Attending physician: Anthony Fairchild MD Consults: 06/18/22 05:01 Consult Physician Routine Consulting Provider: Jenniffer Cruz Consult Reason/Comments: For H & P for Medical Follow Up Do you want consulting provider notified?: Yes Primary care physician: Nathanael Nogueira MD Hospital Course: Patient had her psychiatric and general history and physical done on 06/18/2022 by me and . After psychiatric H&P her home medicine of Seroquel was increased to 400 mg at bedtime to stabilize her mood and help her with sleep. Since she was taking several controlled substances and with her consent it was agreed to continue only Lyrica and when necessary Ativan. She attended groups and individual therapies. She slept very well last night and this morning she feels so much better, does not feel depressed and never felt suicidal any way. She continues to ask for narcotics in spite of agreeing not to take it yesterday and also he is asking for benzos when necessary. Since she was feeling lot better, is relaxed with stable mood without crying spells it was agreed to discharge her today. She was advised to cut down on her narcotics and benzos and to discuss this matter with her doctor in the community. She agreed with this. She was also counseled about taking Cymbalta when she is already on Seroquel which is an antidepressant besides antipsychotic and mood stabilizing factors along with other narcotics including Lyrica. She agreed to discontinue Cymbalta and it was discontinued. She was advised to seek counseling including drug counseling and to consider nonnarcotic painkillers and seek physiotherapy for pain. 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 Patient Condition at Discharge: Stable Plan - Discharge Summary New Discharge Prescriptions: New QUEtiapine [SEROquel] 400 mg PO HS 30 Days tab Acetaminophen Tab [Tylenol] 650 mg PO Q4HR PRN tab PRN Reason: Pain/Discomfort Continue oxyCODONE-APAP 10-325MG [Percocet 10-325 mg] 1 tab PO TID PRN PRN Reason: Pain Oxybutynin Chloride [Ditropan XL] 10 mg PO DAILY lisinopriL [Zestril] 5 mg PO DAILY Isosorbide Mononitrate ER [Imdur] 60 mg PO DAILY Pregabalin [Lyrica] 150 mg PO TID Omeprazole 20 mg PO AC-K Levothyroxine Sodium [Synthroid] 125 mcg PO DAILY estradioL [Estrace] 1 mg PO DAILY Metoprolol Succinate (ER) [Toprol XL] 25 mg PO DAILY Aspirin 81 mg PO DAILY 30 Days #30 tab Clopidogrel Bisulfate [Plavix] 75 mg PO DAILY Rosuvastatin [Crestor] 10 mg PO DAILY Albuterol Inhaler [Ventolin Hfa Inhaler] 2 puff INHALATION RT-Q6H PRN PRN Reason: Shortness Of Breath Discontinued QUEtiapine FUMARATE [SEROquel] 300 mg PO HS DULoxetine HCL 40 mg PO DAILY ALPRAZolam [Xanax] 0.25 mg PO BID PRN PRN Reason: Anxiety Discharge Medication List oxyCODONE-APAP 10-325MG [Percocet 10-325 mg] 1 tab PO TID PRN 04/06/18 [History] Oxybutynin Chloride [Ditropan XL] 10 mg PO DAILY 08/06/20 [History] Isosorbide Mononitrate ER [Imdur] 60 mg PO DAILY 07/10/21 [History] Metoprolol Succinate (ER) [Toprol XL] 25 mg PO DAILY 07/10/21 [History] estradioL [Estrace] 1 mg PO DAILY 07/10/21 [History] lisinopriL [Zestril] 5 mg PO DAILY 07/10/21 [History] Pregabalin [Lyrica] 150 mg PO TID 07/18/21 [History] Aspirin 81 mg PO DAILY 30 Days #30 tab 07/21/21 [Rx] Clopidogrel Bisulfate [Plavix] 75 mg PO DAILY 01/22/22 [History] Albuterol Inhaler [Ventolin Hfa Inhaler] 2 puff INHALATION RT-Q6H PRN 06/18/22 [History] Levothyroxine Sodium [Synthroid] 125 mcg PO DAILY 06/18/22 [History] Omeprazole 20 mg PO AC-BRKFST 06/18/22 [History] Rosuvastatin [Crestor] 10 mg PO DAILY 06/18/22 [History] Acetaminophen Tab [Tylenol] 650 mg PO Q4HR PRN tab 06/19/22 [Rx] QUEtiapine [SEROquel] 400 mg PO HS 30 Days tab 06/19/22 [Rx] Follow up Appointment(s)/Referral(s): Nathanael Nogueira MD [Primary Care Provider] - 1-2 days Discharge Disposition: HOME SELF-CARE
[2022-06-19 19:03] LABS: Chol/HDL Ratio 5.41 Ratio; LDL Cholesterol,Calculated 175.3 mg/dL (0.0-131.0)
== END 2022-06-18 13:50 | disposition home or self-care (01) | DRG 881 ==
LOC: EC 20:47 → 3MHU 06-18 05:00
PROVIDERS: ADMIT Psychiatry & Neurology Psychiatry; ATTEND Psychiatry & Neurology Psychiatry
DX: F43.21 Adjustment disorder with depressed mood (principal); R45.851 Suicidal ideations; F12.90 Cannabis use, unspecified, uncomplicated; F13.90 Sedative, hypnotic, or anxiolytic use, unspecified, uncomplicated; F17.200 Nicotine dependence, unspecified, uncomplicated; F41.0 Panic disorder [episodic paroxysmal anxiety]; G89.29 Other chronic pain; I10 Essential (primary) hypertension; I25.10 Atherosclerotic heart disease of native coronary artery without angina pectoris; I25.2 Old myocardial infarction; M79.7 Fibromyalgia; N30.10 Interstitial cystitis (chronic) without hematuria; Z79.02 Long term (current) use of antithrombotics/antiplatelets; E78.5 Hyperlipidemia, unspecified; E66.3 Overweight; E03.9 Hypothyroidism, unspecified; Z79.82 Long term (current) use of aspirin; Z79.890 Hormone replacement therapy; Z79.899 Other long term (current) drug therapy; Z82.0 Family history of epilepsy and other diseases of the nervous system; Z98.1 Arthrodesis status; Z20.822 Contact with and (suspected) exposure to COVID-19
CPT/HCPCS: 80053; 80061; 82075; 82248; 83036; 84443; 85025; 87635; 96372; 99285

== ENCOUNTER 2022-10-10 07:48 | Day surgery (SDC) | payer OTHER ==
[2022-10-10] MEDS ORDERED: diazePAM 5 MG TAB PO PRN (08:35)
[2022-10-10 09:08] VITALS: RESP 18; TEMP 98.5
[2022-10-10] MEDS ORDERED: HYDROcodone/APAP 5-325MG 1 EACH TAB PO PRN (09:56)
--- NOTE | 2022-10-10 13:06 | FL ---
Lumbar puncture and Myelogram. INDICATION: Pain FINDINGS: Fluoroscopy time: 38 seconds. Images obtained: 5. The procedure was explained to the patient. Risks complications and benefits were discussed. Alternat georgi were discussed. All questions were answered. Informed consent was obtained. A timeout was performed. The L5 level was chosen for access. Maximum barrier sterile technique was utilized. The skin was kassi nsed with Betadine and the patient sterilely prepped and draped in the usual manner. The skin and yani per tissue was anesthetized with 1% Lidocaine. Utilizing a 22-gauge spinal needle the spinal canal wa s accessed. Good CSF return was evident. Isovue-M 200 was utilized, 12 milliliters was administered under fluoroscopic observation. The stylette was replaced and the needle withdrawn. Fluoroscopic spot images were obtained. The patient tolerated the procedure well. Pain levels were stable throughout the examination. [facility] instructions were discussed with the patient. The patient was transferred to CT for additional jesica luation. Findings: Limited views of the lumbar spinal canal with contrast were obtained. There is some canal narrowing through the L4-5 level lumbar spinal canal otherwise appears patent on the myelogram images . Please also see CT lumbar spine report same date IMPRESSIONS: 1. Successful Lumbar Puncture for myelogram. 2. Diffuse Spinal canal narrowing through the L4-5 level.
[2022-10-10 13:27] VITALS: BP 136/76; PULSE 82
--- NOTE | 2022-10-10 13:40 | CT ---
EXAMINATION TYPE: CT lumbar spine w con DATE OF EXAM: 10/10/2022 COMPARISON: 06/03/2022 HISTORY: Follow up lumbar fusion. CT DLP: 913.9 mGycm CONTRAST: CT scan of the lumbar is performed following intrathecal placement of 12ml mL of Isovue M200. TECHNIQUE: CT of the lumbar spine is performed on a spiral scan at 3 mm thick sections. Reconstructed images are performed in the coronal and sagittal planes. FINDINGS: Cord terminates at the mid L2 level. T10-T11: No focal disc herniation or significant disc bulge is evident. No spinal canal stenosis or neural foraminal stenosis is present. T11-T12: Broad based disc bulge is present. This is more focal in the left paracentral region with mi [id number] anterior thecal sac impression. This may have contact or displacement within the theca l sac of the left T12 exiting nerve root. Correlate for radicular symptoms. AP spinal canal stenosis is not evident. T12-L1: Subligamentous disc material in the central and left paracentral region with mild anterior th ecal sac impression posterior to the more inferior T12 level. No cord contact or AP spinal canal sten osis is present. L1-L2: Broad-based disc bulge is mild intrathecal sac contact. No AP spinal canal stenosis is present . Neural foramen are patent. L2-L3: No focal disc herniation or significant disc bulge is evident. No spinal canal stenosis or n eural foraminal stenosis is present L3-L4: Facet hypertrophy is present with some lateral canal narrowing. Broad-based disc bulge as intr athecal sac flattening. Spinal canal narrowing to this level is evident. AP spinal canal stenosis is not present. There is severe right and moderate left foraminal stenosis. L4-L5: Facet hypertrophy is present. This has moderate posterior lateral sixth thecal sac impression. AP spinal canal stenosis is not evident. Moderate left foraminal stenosis is present L5-S1: No focal disc herniation or significant disc bulge is evident. No spinal canal stenosis or n eural foraminal stenosis is present Scoliosis is present. Extensive postsurgical changes are within the lower lumbar spine. This may have left posterior lateral thecal sac impression without stenosis at the L4 level IMPRESSION: 1. Spinal canal narrowing at the L3-4 level secondary to facet hypertrophy and residual endplate mcfarland ges with anterior thecal sac impression. 2. Some minimal subligamentous disc extension posterior to the T12 level may be present. No stenosis is present. 3. Broad-based left paracentral disc herniation may have contact with the exiting left T12 nerve root at the T11-12 level.
== END 2022-10-10 13:38 | disposition home or self-care (01) ==
LOC: RADPROMAIN 07:48
PROVIDERS: ATTEND Orthopaedic Surgery
DX: M51.26 Other intervertebral disc displacement, lumbar region (principal); M48.061 Spinal stenosis, lumbar region without neurogenic claudication; M47.26 Other spondylosis with radiculopathy, lumbar region; Z98.1 Arthrodesis status; G89.29 Other chronic pain; Z79.02 Long term (current) use of antithrombotics/antiplatelets; Z79.811 Long term (current) use of aromatase inhibitors; Z79.82 Long term (current) use of aspirin; Z79.891 Long term (current) use of opiate analgesic; F17.210 Nicotine dependence, cigarettes, uncomplicated; F12.20 Cannabis dependence, uncomplicated; Z79.899 Other long term (current) drug therapy
CPT/HCPCS: 36415; 62304; 72132; Q9966

== ENCOUNTER 2022-10-30 15:19 | Inpatient (IN) | payer OTHER ==
--- NOTE | 2022-10-30 16:01 | ED ---
General Adult HPI - General Chief complaint: Altered Mental Status Stated complaint: CVA Symptoms Time Seen by Provider: 10/30/22 15:36 Source: patient, EMS Mode of arrival: EMS - History of Present Illness Initial comments: Dictation was produced using [employer] dictation software. please excuse any grammatical, word or spelling errors. Chief Complaint: 62-year-old female instructed to come to the emergency department by PCP for finding difficulties. History of Present Illness: Patient 62-year-old female patient presents to the emergency Department with EMS. She patient had a conversation with a primary care doctor fall. Patient has been struggling with word finding difficulties for the last 48 hours. Patient denies any other issues. Denies any numbness or paresthesias to the arms or legs. No headache. No head trauma. Denies any slurred speech. No facial numbness or facial weakness. Patient has chronic back pain. She is requesting pain medications for her back. The ROS documented in this emergency department record has been reviewed and confirmed by me. Those systems with pertinent positive or negative responses have been documented in the HPI. All other systems are other negative and/or noncontributory. PHYSICAL EXAM: General Impression: Alert and oriented x3, not in acute distress HEENT: Normocephalic atraumatic, extra-ocular movements intact, pupils equal and reactive to light bilaterally, mucous membranes moist. Cardiovascular: Heart regular rate and rhythm Chest: Able to complete full sentences, no retractions, no tachypnea Abdomen: abdomen soft, non-tender, non-distended, no organomegaly Musculoskeletal: Pulses present and equal in all extremities, no peripheral edema Motor: no focal deficits noted Neurological: CN II-XII grossly intact, no focal motor or sensory deficits noted, mild word finding difficulties Skin: Intact with no visualized rashes Psych: Normal affect and mood ED course: 62-year-old female presents emergency Department with word finding difficulties for 48 hours. Clinical presentation suspicious for acute cerebrovascular accident. Patient not a candidate for TPA or thrombectomy given duration of symptoms. Furthermore she is not a candidate due to low NIH score. Risks outweigh the benefits. Nursing notes and chart review was performed My EKG interpretation: Ventricular rate 64, sinus rhythm, SD interval 170, QRS 110, QTc 439. No SD prolongation, no QTC prolongation, no ST or T-wave changes noted. EKG compared to 01/10/2022 showing no changes. Overall, this EKG is unremarkable Laboratory evaluation obtained. CBC coag panel metabolic panel is unremarkable. Computed tomography scan of the brain is unremarkable. Chest x-ray is acute. Patient reevaluated the bedside seems to be more improved without any obvious dysarthria. Nonetheless she'll be admitted with consultation to neurology. Case discussed with Dangelo nurse practitioner with [facility]. CT angiography was considered however patient's symptoms are minimal. Patient would not be a candidate for thrombectomy regardless. Pain medications were considered however patient has multiple ALLERGIES. Clinical presentation consistent with acute CVA. Was pt. sent in by a medical professional or institution (, [facility], FIELD TAX AUDITOR, urgent care, hospital, or [facility]...) When possible be specific @ -Primary care physician Did you speak to anyone other than the patient for history (EMS, parent, family, police, friend...)? What history was obtained from this source @ -EMS Did you review nursing and triage notes (agree or disagree)? Why? @ -I reviewed and agree with nursing and triage notes Were old charts reviewed (outside hosp., previous admission, EMS record, old EKG, old radiological studies, urgent care reports/EKG's, [facility] records)? Report findings @ -No old charts were reviewed Differential Diagnosis (chest pain, altered mental status, abdominal pain women, abdominal pain men, vaginal bleeding, weakness, fever, dyspnea, syncope, headache, dizziness, GI bleed, back pain, seizure, CVA, palpatations, mental health)? @ -Differential Weakness: Hypoglycemia, shock, sepsis, hyponatremia, anemia, infection, NE, ETOH, adverse medicine reaction, overdose, stroke, this is not meant to be an all-inclusive list. EKG interpreted by me (3pts min.). @ -As above X-rays interpreted by me (1pt min.). @ -As above CT interpreted by me (1pt min.). @ -As above U/S interpreted by me (1pt. min.). @ -None done What testing was considered but not performed or refused? (CT, X-rays, U/S, labs)? Why? @ -See above What meds were considered but not given or refused? Why? @ -See above Did you discuss the management of the patient with other professionals (professionals i.e. , PA, FIELD TAX AUDITOR, lab, RT, psych nurse, social services assistant, coating operator, teacher, financial services officer, case resource manager)? Give summary @ -See above Was smoking cessation discussed for >3mins.? @ -No Was critical care preformed (if so, how long)? @ -No Were there social determinants of health that impacted care today? How? (Homelessness, low income, unemployed, alcoholism, drug addiction, transportation, low edu. Level, literacy, decrease access to med. care, [place] [facility], rehab)? @ -No Was there de-escalation of care discussed even if they declined (Discuss DNR or withdrawal of care, Hospice)? DNR status @ -No What co-morbidities impacted this encounter? (DM, HTN, Smoking, COPD, CAD, Cancer, CVA, ARF, Chemo, Hep., AIDS, mental health diagnosis, sleep apnea, morbid obesity)? @ -None Was patient admitted / discharged? Hospital course, mention meds given and r oute, prescriptions, significant lab abnormalities, going to OR and other pertinent info. @ -See above Undiagnosed new problem with uncertain prognosis? @ -No Drug Therapy requiring intensive monitoring for toxicity (Heparin, Nitro, Insulin, Cardizem)? @ -No Were any procedures done? @ -No Diagnosis/symptom? @ -Acute CVA Acute, or Chronic, or Acute on Chronic? @ - Uncomplicated (without systemic symptoms) or Complicated (systemic symptoms)? @ -default Side effects of treatment? @ -No Exacerbation, Progression, or Severe Exacerbation? @ -No Poses a threat to life or bodily function? How? (Chest pain, USA, NE, pneumonia, PE, COPD, DKA, ARF, appy, cholecystitis, CVA, Diverticulitis, Homicidal, Suicidal, threat to staff... and all critical care pts) @ -yes - Related Data Home Medications Medication Instructions Recorded Confirmed Isosorbide Mononitrate ER [Imdur] 60 mg PO DAILY 07/10/21 10/30/22 Metoprolol Succinate (ER) [Toprol 25 mg PO HS 07/10/21 10/30/22 XL] estradioL [Estrace] 1 mg PO DAILY 07/10/21 10/30/22 lisinopriL [Zestril] 5 mg PO DAILY 07/10/21 10/30/22 Pregabalin [Lyrica] 150 mg PO TID 07/18/21 10/30/22 Clopidogrel Bisulfate [Plavix] 75 mg PO DAILY 01/22/22 10/30/22 Levothyroxine Sodium [Synthroid] 125 mcg PO DAILY 06/18/22 10/30/22 Cyclobenzaprine [Flexeril] 10 mg PO HS 09/23/22 10/30/22 Amitriptyline HCl [Elavil] 25 mg PO HS 10/30/22 10/30/22 DULoxetine HCL [Cymbalta] 120 mg PO HS 10/30/22 10/30/22 Oxybutynin Chloride [Oxybutynin 10 mg PO HS 10/30/22 10/30/22 Chloride ER] Previous Rx's Medication Instructions Recorded QUEtiapine [SEROquel] 400 mg PO HS 30 Days tab 06/19/22 Allergies Allergy/AdvReac Type Severity Reaction Status Date / Time ciprofloxacin [From Cipro] Allergy Anaphylaxis Verified 10/30/22 17:41 Penicillins Allergy Swelling/Hi Verified 10/30/22 17:41 ves vancomycin Allergy Dyspnea Verified 10/30/22 17:41 ketorolac tromethamine AdvReac Itching Verified 10/30/22 17:41 [From Toradol] NSAIDS (Non-Steroidal AdvReac STOMACH Verified 10/30/22 17:41 Anti-Inflamma ULCER Review of Systems ROS Statement: Those systems with pertinent positive or pertinent negative responses have been documented in the HPI. ROS Other: All systems not noted in ROS Statement are negative. Past Medical History Past Medical History: Coronary Artery Disease (CAD), Chest Pain / Angina, Fibromyalgia, Hyperlipidemia, Hypertension, Myocardial Infarction (NE), Osteoarthritis (OA), Thyroid Disorder Additional Past Medical History / Comment(s): interstitial cystitis; constipation, gallstones, LUMBAR BACK PAIN Last Myocardial Infarction Date:: 2013 History of Any Multi-Drug Resistant Organisms: None Reported Past Surgical History: Back Surgery, Bladder Surgery, Breast Surgery, Cholecystectomy, Heart Catheterization With Stent, Hysterectomy, Orthopedic Surgery Additional Past Surgical History / Comment(s): bladder stimulator, neck surgery, total 6 cardiac stents - back fusion, neck fusion, jeff bunionectomy, revision of back surgery screws, cage and rods were suppose to be placed but DR Nova doesn't see them on imaging. Past Anesthesia/Blood Transfusion Reactions: No Reported Reaction Date of Last Stent Placement:: approx 3 yrs ago Past Psychological History: Anxiety, Bipolar, Depression, Panic Disorder Smoking Status: Former smoker Past Alcohol Use History: None Reported Past Drug Use History: None Reported - Past Family History Father Family Medical History: Cancer Course Vital Signs 10/30/22 10/30/22 10/30/22 15:26 16:00 16:10 Temperature 98.1 F Pulse Rate 75 74 78 Respiratory 18 Rate Blood Pressure 103/70 112/70 127/93 O2 Sat by Pulse 98 94 L Oximetry 10/30/22 16:20 Temperature Pulse Rate 72 Respiratory Rate Blood Pressure 104/70 O2 Sat by Pulse Oximetry Medical Decision Making - Lab Data Result diagrams: 10/30/22 16:21 10/30/22 16:21 Lab Results 10/30/22 10/30/22 10/30/22 Range/Units 16:21 16:21 16:21 WBC 6.8 (3.8-10.6) k/uL RBC 4.51 (3.80-5.40) m/uL Hgb 14.9 (11.4-16.0) gm/dL Hct 45.1 (34.0-46.0) % MCV 100.0 (80.0-100.0) fL MCH 33.0 (25.0-35.0) pg MCHC 33.0 (31.0-37.0) g/dL RDW 12.2 (11.5-15.5) % Plt Count 202 (150-450) k/uL MPV 8.2 Neutrophils % 66 % Lymphocytes % 23 % Monocytes % 6 % Eosinophils % 4 % Basophils % 1 % Neutrophils # 4.5 (1.3-7.7) k/uL Lymphocytes # 1.5 (1.0-4.8) k/uL Monocytes # 0.4 (0-1.0) k/uL Eosinophils # 0.3 (0-0.7) k/uL Basophils # 0.0 (0-0.2) k/uL PT 10.7 (9.0-12.0) sec INR 1.0 (<1.2) APTT 24.6 (22.0-30.0) sec Sodium 137 (137-145) mmol/L Potassium 4.4 (3.5-5.1) mmol/L Chloride 106 (98-107) mmol/L Carbon Dioxide 24 (22-30) mmol/L Anion Gap 7 mmol/L BUN 12 (7-17) mg/dL Creatinine 0.76 (0.52-1.04) mg/dL Est GFR (CKD-EPI)AfAm >90 (>60 ml/min/1.73 sqM) Est GFR (CKD-EPI)NonAf 84 (>60 ml/min/1.73 sqM) Glucose 85 (74-99) mg/dL Calcium 8.6 (8.4-10.2) mg/dL Total Bilirubin 0.7 (0.2-1.3) mg/dL AST 21 (14-36) U/L ALT 19 (4-34) U/L Alkaline Phosphatase 90 (38-126) U/L Troponin I (0.000-0.034) ng/mL Total Protein 6.9 (6.3-8.2) g/dL Albumin 4.3 (3.5-5.0) g/dL 10/30/22 Range/Units 16:21 WBC (3.8-10.6) k/uL RBC (3.80-5.40) m/uL Hgb (11.4-16.0) gm/dL Hct (34.0-46.0) % MCV (80.0-100.0) fL MCH (25.0-35.0) pg MCHC (31.0-37.0) g/dL RDW (11.5-15.5) % Plt Count (150-450) k/uL MPV Neutrophils % % Lymphocytes % % Monocytes % % Eosinophils % % Basophils % % Neutrophils # (1.3-7.7) k/uL Lymphocytes # (1.0-4.8) k/uL Monocytes # (0-1.0) k/uL Eosinophils # (0-0.7) k/uL Basophils # (0-0.2) k/uL PT (9.0-12.0) sec INR (<1.2) APTT (22.0-30.0) sec Sodium (137-145) mmol/L Potassium (3.5-5.1) mmol/L Chloride (98-107) mmol/L Carbon Dioxide (22-30) mmol/L Anion Gap mmol/L BUN (7-17) mg/dL Creatinine (0.52-1.04) mg/dL Est GFR (CKD-EPI)AfAm (>60 ml/min/1.73 sqM) Est GFR (CKD-EPI)NonAf (>60 ml/min/1.73 sqM) Glucose (74-99) mg/dL Calcium (8.4-10.2) mg/dL Total Bilirubin (0.2-1.3) mg/dL AST (14-36) U/L ALT (4-34) U/L Alkaline Phosphatase (38-126) U/L Troponin I <0.012 (0.000-0.034) ng/mL Total Protein (6.3-8.2) g/dL Albumin (3.5-5.0) g/dL Disposition Clinical Impression: CVA (cerebral vascular accident) Disposition: ADMITTED IP TO THIS [facility] Condition: Fair Referrals: Nathanael Nogueira MD [Primary Care Provider] - 1-2 days Decision Time: 18:08
[2022-10-30 16:38] LABS: Basophils % (A) 1 %; Eosinophils # (A) 0.3 k/uL (0-0.7); Eosinophils % (A) 4 %; HCT 45.1 % (34.0-46.0); HGB 14.9 gm/dL (11.4-16.0); Lymphocytes # (A) 1.5 k/uL (1.0-4.8); Lymphocytes % (A) 23 %; Mean Platelet Volume 8.2; Monocytes # (A) 0.4 k/uL (0-1.0); Monocytes % (A) 6 %; Neutrophils # (A) 4.5 k/uL (1.3-7.7); Neutrophils % (A) 66 %; Platelet Count 202 k/uL (150-450); RBC 4.51 m/uL (3.80-5.40); RDW 12.2 % (11.5-15.5); WBC 6.8 k/uL (3.8-10.6)
--- NOTE | 2022-10-30 16:44 | XR ---
EXAMINATION TYPE: XR chest 2V DATE OF EXAM: 10/30/2022 COMPARISON: Chest x-ray July 18, 2021. HISTORY: Altered mental status and weakness. TECHNIQUE: Frontal and lateral views of the chest are obtained. FINDINGS: There is some chronic parenchymal change bilaterally without suspicious focal air space op acity, pleural effusion, or pneumothorax seen. The cardiac silhouette size remains within normal gallardo its. Surgical change of the cervical spine is partially imaged. IMPRESSION: No acute cardiopulmonary process. No significant change from prior.
[2022-10-30 16:47] LABS: Partial Thromboplastin Time 24.6 sec (22.0-30.0); Prothrombin Time 10.7 sec (9.0-12.0)
[2022-10-30 16:49] LABS: ALT 19 U/L (4-34); AST 21 U/L (14-36); African American GFR (CKD) >90 (>60 ml/min/1.73 sqM); Albumin 4.3 g/dL (3.5-5.0); Alkaline Phosphatase 90 U/L (38-126); Anion Gap 7 mmol/L; Blood Urea Nitrogen 12 mg/dL (7-17); Calcium 8.6 mg/dL (8.4-10.2); Carbon Dioxide 24 mmol/L (22-30); Chloride 106 mmol/L (98-107); Glucose 85 mg/dL (74-99); Non-African American GFR(CKD) 84 (>60 ml/min/1.73 sqM); Potassium 4.4 mmol/L (3.5-5.1); Sodium 137 mmol/L (137-145); Total Bilirubin 0.7 mg/dL (0.2-1.3); Total Protein 6.9 g/dL (6.3-8.2)
--- NOTE | 2022-10-30 16:51 | CT ---
EXAMINATION TYPE: CT brain wo con for TPA DATE OF EXAM: 10/30/2022 HISTORY: Neuro deficits, shaking extremities, dysphasia. No hx TIA or stroke. Was not called as a cod e stroke. CT DLP: 1086.4 mGycm. Automated Exposure Control for Dose Reduction was Utilized. TECHNIQUE: CT scan of the head is performed without contrast. COMPARISON: Most recent CT brain January 10, 2022 FINDINGS: There is no acute intracranial hemorrhage or midline shift identified. Ventricles and sul ci within normal limits in size for patient's age. Martínez-white matter differentiation is maintained. The globes are intact and the visualized sinuses are clear. IMPRESSION: No acute intracranial hemorrhage or midline shift. No significant change from prior.
[2022-10-30] MEDS ORDERED: ASPIRIN 81 MG PO STA (17:22)
[2022-10-30] MEDS ORDERED: NALOXONE 0.4 MG/ML 1 ML VIAL IV PRN (18:04)
[2022-10-30] MEDS: SODIUM CHLORIDE 0.9% 1,000 ML IV SCH (18:15)
[2022-10-30] MEDS: DULoxetine HCL 60 MG CAPSULE.DR PO SCH (21:05)
[2022-10-30] MEDS: METOPROLOL SUCCINATE (ER) 25 MG TAB.ER.24H PO SCH (21:05)
[2022-10-30] MEDS: PREGABALIN 75 MG CAP PO SCH (21:05)
[2022-10-30] MEDS: AMITRIPTYLINE HCL 25 MG TAB PO SCH (21:05)
[2022-10-30] MEDS: CYCLOBENZAPRINE 10 MG TAB PO SCH (21:05)
[2022-10-30] MEDS: QUEtiapine 400 MG TAB PO SCH (21:06)
[2022-10-30] MEDS: OXYBUTYNIN 10 MG TAB.ER.24 PO SCH (21:06)
--- NOTE | 2022-10-31 04:10 | P.HPIM ---
History of Present Illness H&P Date: 10/30/22 Chief Complaint: stroke like symptoms 62 year old female with CAD , hypertension she is coming in due to stroke like symptoms for past 2 days , she reports word finding difficulty with occasional slurred speech. at time of my evaluation her symptoms has completely resolved, she denies any associated head injury , falls, headache, changes in her vision, hearing, or new focal neuro deficits. denies any chest pain or trouble breathing. she denies any recent travel or hospital stay . blood work in the ED was unremarkable CT brain no acute pathology patient was not given tpa due to duration of symptoms CXR no acute pathology patient quit smoking 2 weeks ago , denies any illicit drugs or heavy alcohol Review of Systems Pertinent positives as noted in HPI. All other systems were reviewed and are negative Past Medical History Past Medical History: Coronary Artery Disease (CAD), Chest Pain / Angina, Fibromyalgia, Hyperlipidemia, Hypertension, Myocardial Infarction ([place]), Osteoarthritis (OA), Thyroid Disorder Additional Past Medical History / Comment(s): interstitial cystitis; constipation, gallstones, LUMBAR BACK PAIN Last Myocardial Infarction Date:: 2013 History of Any Multi-Drug Resistant Organisms: None Reported Past Surgical History: Back Surgery, Bladder Surgery, Breast Surgery, Cholecystectomy, Heart Catheterization With Stent, Hysterectomy, Orthopedic Surgery Additional Past Surgical History / Comment(s): bladder stimulator, neck surgery, total 6 cardiac stents - back fusion, neck fusion, jeff bunionectomy, revision of back surgery screws, cage and rods were suppose to be placed but DR Nova doesn't see them on imaging. Past Anesthesia/Blood Transfusion Reactions: No Reported Reaction Date of Last Stent Placement:: approx 3 yrs ago Past Psychological History: Anxiety, Bipolar, Depression, Panic Disorder Additional Psychological History / Comment(s): "stress related" Smoking Status: Former smoker Past Alcohol Use History: None Reported Additional Past Alcohol Use History / Comment(s): quit smoking 01/20/22 Past Drug Use History: None Reported Additional Drug Use History / Comment(s): occ. - Past Family History Father Family Medical History: Cancer Medications and Allergies Home Medications Medication Instructions Recorded Confirmed Type Isosorbide Mononitrate ER [Imdur] 60 mg PO DAILY 07/10/21 10/30/22 History Metoprolol Succinate (ER) [Toprol 25 mg PO HS 07/10/21 10/30/22 History XL] estradioL [Estrace] 1 mg PO DAILY 07/10/21 10/30/22 History lisinopriL [Zestril] 5 mg PO DAILY 07/10/21 10/30/22 History Pregabalin [Lyrica] 150 mg PO TID 07/18/21 10/30/22 History Clopidogrel Bisulfate [Plavix] 75 mg PO DAILY 01/22/22 10/30/22 History Levothyroxine Sodium [Synthroid] 125 mcg PO DAILY 06/18/22 10/30/22 History QUEtiapine [SEROquel] 400 mg PO HS 30 Days tab 06/19/22 10/30/22 Rx Cyclobenzaprine [Flexeril] 10 mg PO HS 09/23/22 10/30/22 History Amitriptyline HCl [Elavil] 25 mg PO HS 10/30/22 10/30/22 History DULoxetine HCL [Cymbalta] 120 mg PO HS 10/30/22 10/30/22 History Oxybutynin Chloride [Oxybutynin 10 mg PO HS 10/30/22 10/30/22 History Chloride ER] Allergies Allergy/AdvReac Type Severity Reaction Status Date / Time ciprofloxacin [From Cipro] Allergy Anaphylaxis Verified 10/30/22 17:41 Penicillins Allergy Swelling/Hi Verified 10/30/22 17:41 ves vancomycin Allergy Dyspnea Verified 10/30/22 17:41 ketorolac tromethamine AdvReac Itching Verified 10/30/22 17:41 [From Toradol] NSAIDS (Non-Steroidal AdvReac STOMACH Verified 10/30/22 17:41 Anti-Inflamma ULCER Physical Exam Vitals: Vital Signs Temp Pulse Resp BP Pulse Ox 10/30/22 18:00 72 18 97/58 100 10/30/22 16:20 72 104/70 10/30/22 16:10 78 127/93 10/30/22 16:00 74 112/70 94 L 10/30/22 15:26 98.1 F 75 18 103/70 98 Intake and Output 10/30/22 10/30/22 10/30/22 06:59 14:59 22:59 Other: Weight 72.575 kg Constitutional: No acute distress, conversant, pleasant Eyes: Anicteric sclerae, moist conjunctiva, Pupils equal round reactive to light ENMT: NC/AT Oropharynx clear, no erythema, or exudates Neck: Supple, no masses, or JVD No carotid bruits No thyromegaly Lungs: Clear to auscultation Clear to percussion Normal respiratory effort, no accessory muscle use Cardiovascular: Heart regular in rate and rhythm, No murmurs, gallops, or rubs No peripheral edema Abdominal: Soft Nontender, no guarding, rebound or rigidity Abdomen moving with respiration Normoactive bowel sounds No hepatomegaly, No splenomegaly No palpable mass No abdominal wall hernia noted Skin: Normal temperature, tone, texture, turgor No induration No subcutaneous nodules No rash, lesions No ulcers Extremities: No digital cyanosis No clubbing Pedal pulses intact and symmetrical Radial pulses intact and symmetrical No calf tenderness Psychiatric: Alert and oriented to person, place and time Appropriate affect fair judgment Neuro Muscles Strength 5/5 in all 4 extremities Sensation to light touch grossly present throughout Cranial nerves II-XII grossly intact finger nose exam no ataxia Lymphatics: no palpable cervical or supraclavicular lymph nodes Results CBC & Chem 7: 10/30/22 16:21 10/30/22 16:21 Thrombosis Risk Factor Assmnt - Choose All That Apply Any of the Below Risk Factors Present?: Yes Each Factor Represents 1 point: Obesity (BMI >25) Other Risk Factors: Yes Each Risk Factor Represents 2 Points: Age 61-74 years Other congenital or acquired thrombophilia - If yes, enter type in comment: No Thrombosis Risk Factor Assessment Total Risk Factor Score: 3 Thrombosis Risk Factor Assessment Level: Moderate Risk Assessment and Plan Assessment: word finding difficulties , rule out stroke CT brain no acute pathology check carotid US check Echocardiogram check lipid panel neuro checks neuro consult fall precautions PT eval resume ASA, plavix start statin permissive Hypertension ,resume beta blockers h/o CAD resume plavix and ASA hold imdur and lisinopril for permissive hypertension full code DVT PPX mechanical
[2022-10-31] MEDS: LEVOTHYROXINE 125 MCG TAB PO SCH (05:45)
[2022-10-31] MEDS: SODIUM CHLORIDE 0.9% 1,000 ML IV SCH (07:28)
[2022-10-31] MEDS: ATORVASTATIN 40 MG TAB PO SCH (09:00)
[2022-10-31] MEDS: PREGABALIN 75 MG CAP PO SCH ×3 (09:00→21:07)
[2022-10-31] MEDS: CLOPIDOGREL 75 MG TAB PO SCH (09:00)
--- NOTE | 2022-10-31 09:04 | US ---
EXAMINATION TYPE: US carotid duplex BILAT DATE OF EXAM: 10/31/2022 COMPARISON: NONE CLINICAL HISTORY: tia. TIA TECHNIQUE: Carotid duplex ultrasound examination. Indirect Doppler criteria was utilized. FINDINGS: EXAM MEASUREMENTS: RIGHT: Peak Systolic Velocity (PSV) cm/sec ----- Right CCA: 84.5 ----- Right ICA: 105 ----- Right ECA: 174 ICA/CCA ratio: 1.2 RIGHT: End Diastole cm/sec ----- Right CCA: 20.1 ----- Right ICA: 36.4 ----- Right ECA: 38.1 LEFT: Peak Systolic Velocity (PSV) cm/sec ----- Left CCA: 118 ----- Left ICA: 122 ----- Left ECA: 93.3 ICA/CCA ratio: 1.0 LEFT: End Diastole cm/sec ----- Left CCA: 37.1 ----- Left ICA: 45.3 ----- Left ECA: 21.7 VERTEBRALS (direction of flow): Right Vertebral: Antegrade Left Vertebral: Antegrade Rhythm: Normal COACH BUILDER NOTES: No significant stenosis seen Left carotid artery velocity is approaching mild narrowing. IMPRESSION: No significant flow-limiting stenosis bilateral carotid bifurcations. Criteria for Assigning % of Stenosis / Diameter reduction (Estimation based on the indirect measurements of the internal carotid artery velocities (ICA PSV). 1. Normal (no stenosis)=ICA PSV < 125 cm/s: ratio < 2.0: ICA EDV<40 cm/s. 2. Less than 50% stenosis=ICA PSV < 125 cm/s: ratio < 2.0: ICA EDV<40 cm/s. 3. 50 to 69% stenosis=ICA PSV of 125 to 230 cm/s: ration 2.0 ? 4.0: ICA EDV 40-100 cm/s. 4. Greater than 70% stenosis to near occlusion= ICA PSV > 230 cm/s: ratio > 4.0: ICA EDV > 100 cm/s. 5. Near occlusion= ICA PSV velocities may be low or undetectable: variable ratio and ICA EDV. 6. Total occlusion=unable to detect flow.
[2022-10-31] MEDS: HYDROcodone/APAP 5-325MG 1 EACH TAB PO PRN ×3 (10:25→23:12)
--- NOTE | 2022-10-31 10:33 | P.PN ---
Subjective Progress Note Date: 10/31/22 Hospital Course: 62-year-old female with history of coronary artery disease, hypertension resenting with expressive aphasia and dysarthria. She also had a fall yesterday, and had worsening left-sided lower back pain secondary to that. She claims that her symptoms have resolved since coming to hospital. Vital signs have been within normal limits. Laboratory workup unremarkable. Head CT showed no acute intracranial process. EKG showed normal sinus rhythm. Carotid Dopplers showed no significant stenosis. Neurology is consulted. Subjective: Patient seen and examined at bedside. No acute events overnight. She claims that she still has left low back pain from fall yesterday. She claims that her fall was secondary to acute weakness in her legs. She denies having any loss of consciousness. She denies any bruising. She was supposed to Surgery for her low back in December. She denies any further work finding difficulty. Pertinent positives and negatives as discussed above, a complete review of systems was performed and all other systems are negative. Vitals Signs Reviewed. General: nontoxic, no distress, appears at stated age Derm: warm, dry Head: atraumatic, normocephalic, symmetric Eyes: EOMI, no lid lag, anicteric sclera Mouth: no lip lesion, mucus membranes moist Cardiovascular: S1S2 reg, no murmur Lungs: CTA bilateral, no rhonchi, no rales , no accessory muscle use Abdominal: soft, nontender to palpation, no guarding, no appreciable organomegaly Ext: no gross muscle atrophy, no edema, no contractures, no tenderness to palpation in the left lumbar region Neuro: CN II-XI grossly intact, no focal neuro deficits Psych: Alert, oriented, appropriate affect Assessment and Plan: Dysarthria Expressive aphasia Possible TIA - Aspirin, Plavix, statin - Echocardiogram, lipid panel pending - TSH, A1c pending - Neurology consult - PT eval History of hypertension History of CAD - Continue beta blockers - Hold Imdur and lisinopril, given normal blood pressure Acute on chronic low back pain - Alcohol as needed - Continue Lyrica - patient pending surgery in December Hypothyroidism Mood disorder Overactive bladder -Continue home medications DVT ppx: Lovenox Code status: Full code Anticipated discharge place: Pending clinical course Anticipated discharge time: Pending clinical course Objective - Vital Signs Vital signs: Vital Signs Temp 97.8 F 10/30/22 23:53 Pulse 75 10/30/22 23:53 Resp 17 10/31/22 04:00 BP 128/79 10/31/22 04:00 Pulse Ox 96 10/31/22 07:35 FiO2 Intake & Output 10/30/22 10/31/22 10/31/22 18:59 06:59 18:59 Intake Total 120 Balance 120 Weight 72.575 kg 72.575 kg Intake: Oral 120 Other: Voiding Method Toilet - Labs CBC & Chem 7: 10/30/22 16:21 10/30/22 16:21
[2022-10-31 11:37] LABS: Chol/HDL Ratio 5.17 Ratio; LDL Cholesterol,Calculated 146.6 mg/dL (0.0-131.0)
--- NOTE | 2022-10-31 12:59 | CA ---
Transthoracic Echo Report Name: Adeline Christiansen Age: 62 Gender: F : 1960 Exam Date: 10/31/2022 09:14 Exam Location: [facility] Ht (in): 61 Wt (lb): 160 Ordering Physician: Roland Berger MD Attending/Referring Phys: [id number], Celine Tilt Wall Supervisor Bianca Boo RDCS Procedure CPT: Indications: tia Cardiac Hx: Technical Quality: Fair Contrast 1: Total Dose (mL): Contrast 2: Total Dose (mL): MEASUREMENTS (Male / Female) Normal Values 2D ECHO LV Diastolic Diameter PLAX 4.5 cm 4.2 - 5.9 / 3.9 - 5.3 cm LV Systolic Diameter PLAX 3.2 cm IVS Diastolic Thickness 1.2 cm 0.6 - 1.0 / 0.6 - 0.9 cm LVPW Diastolic Thickness 1.3 cm 0.6 - 1.0 / 0.6 - 0.9 cm LV Relative Wall Thickness 0.6 RV Internal Dim ED PLAX 2.7 cm LA Systolic Diameter LX 4.1 cm 3.0 - 4.0 / 2.7 - 3.8 cm LV Diastolic Volume MOD 4C 75.9 cm??? LV Systolic Volume MOD 4C 25.1 cm??? LV Ejection Fraction MOD 4C 67.0 % LV Diastolic Length 4C 7.2 cm LV Systolic Length 4C 6.0 cm M-MODE Aortic Root Diameter MM 2.5 cm LA Systolic Diameter MM 4.3 cm LA Ao Ratio MM 1.7 AV Cusp Separation MM 1.7 cm DOPPLER AV Peak Velocity 131.5 cm/s AV Peak Gradient 6.9 mmHg AI Peak Velocity 379.3 cm/s AI Peak Gradient 57.5 mmHg AI Pressure Half Time 914.1 ms LVOT Peak Velocity 90.1 cm/s LVOT Peak Gradient 3.2 mmHg MV Area PHT 3.2 cm??? MR Peak Velocity 448.5 cm/s MR Peak Gradient 80.4 mmHg Mitral E Point Velocity 56.7 cm/s Mitral A Point Velocity 59.4 cm/s Mitral E to A Ratio 1.0 MV Deceleration Time 238.3 ms TR Peak Velocity 226.9 cm/s TR Peak Gradient 20.6 mmHg PV Peak Velocity 62.4 cm/s PV Peak Gradient 1.6 mmHg FINDINGS Left Ventricle Mildly increased septal wall thickness. Left ventricular hypertrophy. Left ventricular ejection fraction is estimated at 50-55 %. Right Ventricle Right ventricular dilatation. Right ventricular systolic pressure within normal limits. Normal right ventricular global systolic function. Right Atrium Right atrial dilatation. Left Atrium Mildly increased left atrial diameter. Mitral Valve Mitral valve thickened. Moderate mitral regurgitation. Aortic Valve Thickened aortic valve without stenosis. Mild aortic regurgitation. Tricuspid Valve Mild to moderate tricuspid regurgitation. Pulmonic Valve Mild pulmonic regurgitation. Pericardium No pericardial or pleural effusion. Aorta Normal size aortic root and proximal ascending aorta. CONCLUSIONS Normal LV function Mitral moderate mitral regurgitation Mild aortic regurgitation Previewed by: Dr. James Talamantes MD (Electronically Signed) Final Date: 31 October 2022 12:58
--- NOTE | 2022-10-31 18:50 | P.CNNES ---
History of Present Illness Consult date: 10/31/22 Requesting physician: Ervin Xavier Reason for Consult: CVA History of Present Illness: Patient is a 62-year-old right-handed female came to the hospital by ambulance yesterday at 3:15 PM for evaluation of speech difficulty. Patient states that for last couple days, she has been stumbling over her words. The longer she talks, the worse it is. She also noticed some tremors of her arms, couldn't hold anything in her hands. She was dropping things. Her hands were shaky leg jerking. Patient was having difficulty putting dog collar and snapping the collar. Her hands were shaking a lot. Patient denies any facial droop, any focal weakness of the arms or legs. Denies any loss of vision, double vision or headache. As per EMS flow sheet, when they arrived, patient was alert and oriented 4 complaining of stroke symptoms for the past 2 days. Patient stated that she has been having a hard time finding the words to use. Patient called her PCP, who told her to call 911. Patient denied any recent trauma, difficulty breathing, chest pain or nausea vomiting. Patient's vital shows blood pressure 128/86, p ulse rate 67, respiration 14 saturation 96% and blood sugar 152. Blood test shows normal CBC, PT/PTT, normal CMP. Hemoglobin A1c 5.9. TSH 0.12, free T4 1.00. CT head revealed no acute intracranial process. Chest x-ray and EKG normal. Patient states that she has 6 cardiac stents for which she has been on Plavix since 2013. She has been smoking one pack per day since she was age 13, quit tobacco 2 weeks ago. She also smoked marijuana since high school, but she stopped smoking marijuana a month ago. Patient also has chronic low back pain and is scheduled for surgery by Dr. Nova on 12/12/2022. Patient has a bladder stimulator implanted. Home medications include lisinopril 5 mg, isosorbide, Estrace 1 mg, metoprolol, Lyrica 150 mg 3 times a day, Plavix 75 mg, levothyroxine, Seroquel 400 mg at bedtime, Flexeril 10 mg at bedtime, amitriptyline 25 mg at bedtime, oxybutynin and Cymbalta 120 mg at bedtime. Review of Systems Constitutional: Denies chills, Denies fever Eyes: denies blurred vision, denies pain Ears: deny: decreased hearing, ear discharge Ears, nose, mouth and throat: Denies headache, Denies sore throat Cardiovascular: Denies chest pain, Denies shortness of breath Respiratory: Denies cough Gastrointestinal: Reports constipation, Denies abdominal pain, Denies diarrhea, Denies nausea, Denies vomiting Genitourinary: Denies dysuria, Denies hematuria Musculoskeletal: Reports low back pain, Denies myalgias Integumentary: Denies pruritus, Denies rash Neurological: Reports as per HPI Psychiatric: Denies anxiety, Denies depression Endocrine: Denies fatigue, Denies weight change Past Medical History Past Medical History: Coronary Artery Disease (CAD), Chest Pain / Angina, Fibromyalgia, Hyperlipidemia, Hypertension, Myocardial Infarction ([place]), Osteoarthritis (OA), Thyroid Disorder Additional Past Medical History / Comment(s): interstitial cystitis; cons tipation, gallstones, LUMBAR BACK PAIN Last Myocardial Infarction Date:: 2013 History of Any Multi-Drug Resistant Organisms: None Reported Past Surgical History: Back Surgery, Bladder Surgery, Breast Surgery, Cholecystectomy, Heart Catheterization With Stent, Hysterectomy, Orthopedic Surgery Additional Past Surgical History / Comment(s): bladder stimulator, neck surgery, total 6 cardiac stents - back fusion, neck fusion, jeff bunionectomy, revision of back surgery screws, cage and rods were suppose to be placed but DR Nova doesn't see them on imaging. Past Anesthesia/Blood Transfusion Reactions: No Reported Reaction Date of Last Stent Placement:: approx 3 yrs ago Past Psychological History: Anxiety, Bipolar, Depression, Panic Disorder Additional Psychological History / Comment(s): "stress related" Smoking Status: Former smoker Past Alcohol Use History: None Reported Additional Past Alcohol Use History / Comment(s): quit smoking 01/20/22 Past Drug Use History: None Reported Additional Drug Use History / Comment(s): occ. - Past Family History Father Family Medical History: Cancer Medications and Allergies Home Medications Medication Instructions Recorded Confirmed Type Isosorbide Mononitrate ER [Imdur] 60 mg PO DAILY 07/10/21 10/30/22 History Metoprolol Succinate (ER) [Toprol 25 mg PO HS 07/10/21 10/30/22 History XL] estradioL [Estrace] 1 mg PO DAILY 07/10/21 10/30/22 History lisinopriL [Zestril] 5 mg PO DAILY 07/10/21 10/30/22 History Pregabalin [Lyrica] 150 mg PO TID 07/18/21 10/30/22 History Clopidogrel Bisulfate [Plavix] 75 mg PO DAILY 01/22/22 10/30/22 History Levothyroxine Sodium [Synthroid] 125 mcg PO DAILY 06/18/22 10/30/22 History QUEtiapine [SEROquel] 400 mg PO HS 30 Days tab 06/19/22 10/30/22 Rx Cyclobenzaprine [Flexeril] 10 mg PO HS 09/23/22 10/30/22 History Amitriptyline HCl [Elavil] 25 mg PO HS 10/30/22 10/30/22 History DULoxetine HCL [Cymbalta] 120 mg PO HS 10/30/22 10/30/22 History Oxybutynin Chloride [Oxybutynin 10 mg PO HS 10/30/22 10/30/22 History Chloride ER] Allergies Allergy/AdvReac Type Severity Reaction Status Date / Time ciprofloxacin [From Cipro] Allergy Anaphylaxis Verified 10/30/22 17:41 Penicillins Allergy Swelling/Hi Verified 10/30/22 17:41 ves vancomycin Allergy Dyspnea Verified 10/30/22 17:41 ketorolac tromethamine AdvReac Itching Verified 10/30/22 17:41 [From Toradol] NSAIDS (Non-Steroidal AdvReac STOMACH Verified 10/30/22 17:41 Anti-Inflamma ULCER Physical Examination - Vital Signs Vital Signs: Vital Signs Temp Pulse Pulse Resp BP BP Pulse Ox 10/31/22 12:00 97.9 F 58 L 18 92/64 95 10/31/22 07:35 96 10/31/22 04:00 17 128/79 96 10/30/22 23:53 97.8 F 75 18 132/76 96 10/30/22 20:00 98 F 60 17 103/59 95 10/30/22 18:00 72 18 97/58 100 10/30/22 16:20 72 104/70 10/30/22 16:10 78 127/93 10/30/22 16:00 74 112/70 94 L 10/30/22 15:26 98.1 F 75 18 103/70 98 Intake and Output 10/30/22 10/31/22 10/31/22 22:59 06:59 14:59 Intake Total 120 Balance 120 Intake: Oral 120 Other: Voiding Method Toilet Weight 72.575 kg Patient is an elderly female, in no acute distress. Patient is alert awake oriented to time place and person. Speech and language functions are normal. Patient can name and repeat very well. No aphasia or dysarthria. Attention, concentration and fund of knowledge is adequate. On cranial nerve examination, pupils are equal, round and reacting to light, visual singleton are full on confrontation, with no neglect on double simultaneous stimulation. Extraocular muscles are intact with no nystagmus. Face is symmetric, tongue protrudes to the midline. Palatal elevation and sensation normal, hearing and shoulder shrug normal, facial sensation normal. On muscle strength testing, there is no pronator drift and the strength is normal in arms and legs distally and proximally. Deep tendon reflexes are symmetric biceps 1+, brachioradialis 1, knees 1+, ankles 1 and plantars downgoing bilaterally. Sensory to touch is equal with no neglect on double simultaneous stimulation. Cerebellar function showed no ataxia for [id number] testing. No dysdiadochokinesia. Patient has mild ataxia for [id number] testing on either side. Tone and bulk of muscles normal. Gait deferred.. On general examination, there is no carotid bruit or murmur, S1-S2 audible. Chest is clear on consultation. Abdomen is soft nontender. No organomegaly, bowel sounds present. Peripheral pulses are present. No edema. Results - Laboratory Findings CBC and BMP: 10/30/22 16:21 10/30/22 16:21 Abnormal Lab Findings: Abnormal Labs 10/31/22 10/31/22 06:45 06:45 Cholesterol 217.00 H LDL Cholesterol, Calc 146.6 H TSH 0.120 L Assessment and Plan Assessment: * 62-year-old female, admitted with speech difficulty "stumbling over words" and myoclonic type jerking of the upper limbs. Exact cause remains unclear. Doubt stroke/TIA, although still in the differential. * Coronary artery disease, status post multiple stents in the past * Hypertension * Chronic back pain * History of bladder stim implant. * Hypothyroidism * Long-standing tobacco use, recently quit 2 weeks ago * History of marijuana use, recently quit a month ago. Plan: * Patient cannot have MRI because of presence of bladder stimulator * 2-D echo revealed normal left-ventricular function, moderate mitral regurgitation. Mild aortic regurgitation. Left atrium is mildly increased in diameter. * Carotid Doppler revealed no significant flow limiting stenosis bilateral carotid bifurcation. Antegrade flow in both vertebral arteries. * Fasting a.m. lipid panel cholesterol 217, LDL 146, HDL 42 and triglycerides 142. Continue Lipitor 40 mg daily. * Hemoglobin A1c 5.9 * Blood pressure is well controlled 128/79. * Telemetry monitoring rule out any arrhythmia * Patient was on Plavix 75 mg daily. May consider adding aspirin 81 mg. * Consider stopping Estrace, if possible, as HRT may be associated with hypercoagulable state.. * Patient has history of almost [id number] smoking. She quit smoking 2 weeks ago. Counseled about staying off tobacco use. * Neurologically cleared for discharge.
[2022-10-31] MEDS: QUEtiapine 400 MG TAB PO SCH (21:07)
[2022-10-31] MEDS: CYCLOBENZAPRINE 10 MG TAB PO SCH (21:07)
[2022-10-31] MEDS: DULoxetine HCL 60 MG CAPSULE.DR PO SCH (21:08)
[2022-10-31] MEDS: OXYBUTYNIN 10 MG TAB.ER.24 PO SCH (21:08)
[2022-10-31] MEDS: AMITRIPTYLINE HCL 25 MG TAB PO SCH (21:08)
[2022-10-31] MEDS: METOPROLOL SUCCINATE (ER) 25 MG TAB.ER.24H PO SCH (22:06)
[2022-10-31] MEDS: ASPIRIN 81 MG PO SCH (22:08)
[2022-11-01] MEDS: HYDROcodone/APAP 5-325MG 1 EACH TAB PO PRN ×2 (06:22→12:27)
[2022-11-01] MEDS: LEVOTHYROXINE 125 MCG TAB PO SCH (06:22)
[2022-11-01] MEDS ORDERED: ENOXAPARIN 40 MG/0.4 ML SYRINGE SQ SCH (09:00)
[2022-11-01] MEDS: ASPIRIN 81 MG PO SCH (09:59)
[2022-11-01] MEDS: CLOPIDOGREL 75 MG TAB PO SCH (09:59)
[2022-11-01] MEDS: PREGABALIN 75 MG CAP PO SCH (09:59)
[2022-11-01] MEDS: ATORVASTATIN 40 MG TAB PO SCH (09:59)
--- NOTE | 2022-11-01 12:06 | P.DS ---
Providers Date of admission: 10/30/22 18:05 Expected date of discharge: 11/01/22 Attending physician: Serene White MD Consults: 10/30/22 18:04 Consult Physician Routine Consulting Provider: Yasir Waters Consult Reason/Comments: cva Do you want consulting provider notified?: Yes Primary care physician: Nathanael Nogueira MD Hospital Course: Discharge Diagnosis: Possible TIA Dysarthria Expressive aphasia Essential tremor versus myoclonic jerks Former smoker Prediabetes History of hypertension History of CAD Acute on chronic low back pain Hypothyroidism Mood disorder Overactive bladder Hospital Course: 62-year-old female with history of coronary artery disease, hypertension resenting with expressive aphasia and dysarthria. She also had a fall prior to coming to the hospital, and had worsening left-sided lower back pain secondary to that. She claims that her symptoms have resolved since coming to hospital. Vital signs have been within normal limits. Laboratory workup unremarkable. Head CT showed no acute intracranial process. EKG showed normal sinus rhythm. Carotid Dopplers showed no significant stenosis. Echocardiogram showed normal LV function, moderate MR, mild AR. Neurology is consulted. Unlikely to be stroke/TIA. Needs further outpatient follow-up. Hemoglobin A1c was 5.9. Patient to be discharged on aspirin, Plavix, Lipitor. We will also discontinue estrogen therapy as it may increase risk for stroke. Blood pressure has been normal/low normal during hospitalization. Antihypertensives discontinued, can resume her primary care doctor. Patient seen and examined at bedside. Vital signs reviewed and stable. General: nontoxic, no distress, appears at stated age Derm: warm, dry Head: atraumatic, normocephalic, symmetric Eyes: EOMI, no lid lag, anicteric sclera Mouth: no lip lesion, mucus membranes moist Cardiovascular: S1S2 reg, no murmur Lungs: CTA bilateral, no rhonchi, no rales , no accessory muscle use Abdominal: soft, nontender to palpation, no guarding, no appreciable organomegaly Ext: no gross muscle atrophy, no edema, no contractures Neuro: CN II-XI grossly intact, no focal neuro deficits Psych: Alert, oriented, appropriate affect A total of 36 minutes of time were spent preparing this complex discharge summary. Patient was discharged on 11/01/22 at 11:59. Patient Condition at Discharge: Stable Plan - Discharge Summary Discharge Rx Participant: Yes New Discharge Prescriptions: New Atorvastatin [Lipitor] 40 mg PO DAILY #30 tab Aspirin 81 mg PO DAILY #30 tab Continue Pregabalin [Lyrica] 150 mg PO TID Levothyroxine Sodium [Synthroid] 125 mcg PO DAILY Amitriptyline HCl [Elavil] 25 mg PO HS Oxybutynin Chloride [Oxybutynin Chloride ER] 10 mg PO HS Metoprolol Succinate (ER) [Toprol XL] 25 mg PO HS Clopidogrel Bisulfate [Plavix] 75 mg PO DAILY QUEtiapine [SEROquel] 400 mg PO HS 30 Days tab Cyclobenzaprine [Flexeril] 10 mg PO HS DULoxetine HCL [Cymbalta] 120 mg PO HS Discontinued lisinopriL [Zestril] 5 mg PO DAILY Isosorbide Mononitrate ER [Imdur] 60 mg PO DAILY estradioL [Estrace] 1 mg PO DAILY Discharge Medication List Metoprolol Succinate (ER) [Toprol XL] 25 mg PO HS 07/10/21 [History] Pregabalin [Lyrica] 150 mg PO TID 07/18/21 [History] Clopidogrel Bisulfate [Plavix] 75 mg PO DAILY 01/22/22 [History] Levothyroxine Sodium [Synthroid] 125 mcg PO DAILY 06/18/22 [History] QUEtiapine [SEROquel] 400 mg PO HS 30 Days tab 06/19/22 [Rx] Cyclobenzaprine [Flexeril] 10 mg PO HS 09/23/22 [History] Amitriptyline HCl [Elavil] 25 mg PO HS 10/30/22 [History] DULoxetine HCL [Cymbalta] 120 mg PO HS 10/30/22 [History] Oxybutynin Chloride [Oxybutynin Chloride ER] 10 mg PO HS 10/30/22 [History] Aspirin 81 mg PO DAILY #30 tab 11/01/22 [Rx] Atorvastatin [Lipitor] 40 mg PO DAILY #30 tab 11/01/22 [Rx] Follow up Appointment(s)/Referral(s): Nathanael Nogueira MD [Primary Care Provider] - 1-2 days Jay White MD [Medical Doctor] - 1 Week Patient Instructions/Handouts: Transient Ischemic Attack (DC), Tremors (DC) Activity/Diet/Wound Care/Special Instructions: Please see a PCP as soon as possible. Your PCP would need to adjust your blood pressure medications. Estrogen hormone therapy might increase your risk for strokes, we'll discontinue for now. Please discuss this further with your PCP or licensed chemical spray technician. Please see a neurologist for further workup with regards to tremors. Discharge Disposition: HOME SELF-CARE
[2022-11-01 14:55] VITALS: BP 103/64; PULSE 63; RESP 16; TEMP 98.1
== END 2022-11-01 15:57 | disposition home or self-care (01) | DRG 69 ==
LOC: EC 15:19 → 3SCARD 18:05
PROVIDERS: ADMIT Internal Medicine; ATTEND Internal Medicine
DX: G45.9 Transient cerebral ischemic attack, unspecified (principal); I25.10 Atherosclerotic heart disease of native coronary artery without angina pectoris; I10 Essential (primary) hypertension; W19.XXXA Unspecified fall, initial encounter; G25.0 Essential tremor; G25.3 Myoclonus; R73.03 Prediabetes; M54.50 Low back pain, unspecified; G89.29 Other chronic pain; R47.1 Dysarthria and anarthria; E03.9 Hypothyroidism, unspecified; N32.81 Overactive bladder; M79.7 Fibromyalgia; E78.5 Hyperlipidemia, unspecified; M19.90 Unspecified osteoarthritis, unspecified site; F17.210 Nicotine dependence, cigarettes, uncomplicated; F41.9 Anxiety disorder, unspecified; F31.9 Bipolar disorder, unspecified; F41.0 Panic disorder [episodic paroxysmal anxiety]; R27.0 Ataxia, unspecified; I34.0 Nonrheumatic mitral (valve) insufficiency; F39 Unspecified mood [affective] disorder; E66.9 Obesity, unspecified; Z68.30 Body mass index [BMI] 30.0-30.9, adult; Z98.1 Arthrodesis status; Z95.5 Presence of coronary angioplasty implant and graft; Z79.899 Other long term (current) drug therapy; Z79.890 Hormone replacement therapy; Z79.82 Long term (current) use of aspirin; Z79.02 Long term (current) use of antithrombotics/antiplatelets; I25.2 Old myocardial infarction; Z88.1 Allergy status to other antibiotic agents; Z88.0 Allergy status to penicillin; Z88.6 Allergy status to analgesic agent; Z71.6 Tobacco abuse counseling
CPT/HCPCS: 36415; 70450; 71046; 80053; 80061; 83036; 84439; 84443; 84484; 85025; 85610; 85730; 93005; 93306; 93880; 94760; 99285

== ENCOUNTER 2022-12-02 06:04 | Inpatient (IN) | payer OTHER ==
[~2022-12-02 06:04] MED LIST changes: -DEXAMETHASONE SOD PHOSPHATE 4 MG/ML 1 ML VIAL IV ONE; +GABAPENTIN 300 MG CAP PO PRN; -HEPARIN SODIUM,PORCINE/PF 5,000 UNIT/0.5 ML SYRINGE SQ PRN; -LACTATED RINGERS 1,000 ML IV SCH; -ONDANSETRON 4 MG/2 ML VIAL IVP ONE; +ONDANSETRON 4 MG/2 ML VIAL IVP PRN; +TRANEXAMIC ACID IN NACL,ISO-OS 1,000 MG in SALINE 1 100ML.BAG IVPB PRN
[2022-12-02] MEDS ORDERED: LIDOCAINE 1% (10MG/ML) FOR IV START INTRADERMA PRN (06:28)
[2022-12-02] MEDS ORDERED: MIDAZOLAM 2 MG/2 ML VIAL IV PRN (06:28)
[2022-12-02] MEDS ORDERED: ONDANSETRON 4 MG/2 ML VIAL IVP ONE (06:28)
[2022-12-02] MEDS ORDERED: DEXAMETHASONE SOD PHOSPHATE 4 MG/ML 1 ML VIAL IV ONE (06:28)
[2022-12-02] MEDS: LACTATED RINGERS 1,000 ML IV SCH ×3 (06:55→07:30)
[2022-12-02] MEDS ORDERED: HYDROmorphone 0.5 MG/0.5 ML SYRINGE IVP PRN (07:00)
--- NOTE | 2022-12-02 07:04 | P.HPOR ---
History of Present Illness H&P Date: 11/27/22 .D:Date: 11/27/22 : 02:51pm .T:Title: [facility] Follow-up Date of :58 R14 Allergies: Age: 62 year Height: 5'1" Weight: 160 lbs BP:/ BMI: 30.23 kg/m2 Occupation:Retired VAS: 8 CHIEF COMPLAINT: Lumbar pain DOI: Chronic DOS: Hx of lumbar fusion in 1999 with revision/ELOINA in 2005 Duration of current treatment regiment: 2 months HISTORY : Xrays No new xrays taken in office Trauma or injury No Work-Related No Pain description aching, burning, sharp. Location diffuse Patient notes that their pain radiates to bilateral lower extremities Activity Modification yes Hand Dominance right TREATMENTS COMPLETED: 6 weeks of PT completed? Month and Year of last PT date? None recent. No, Unable to complete due to excerbation of symptoms. Physician directed home exercise completed? yes Patient has trialed the physician directed home exercise program without relief of their symptoms. Medications yes List: Lyrica without relief of her symptoms. Pt is currently on Plavix. Alternative interventions Chiropractic: yes , exacerbated symptoms. Massage therapy: No R.I.C.E: yes heat/ice without relief Brace: No Injections Yes (lumbar REBECA 07/15/2022) How many? 1 Did they help? yes, mild/temporary relief RFA: No SUBJECTIVE: Ms Christiansen returns to the office today for a recheck of her low back pain and pre operative visit. Patient continues to report and achy, burning, sharp lumbar pain into her low back that does radiate into bilateral lower extremities, associated with numbness and tingling. patient states that her pain is exacerbated with sitting and ambulation. For her symptoms, patient denies any medications at this time. Patient is on Plavix. Patient denies trialing any other modalities at this time. Otherwise the patient denies any f/c/sob/cp, no incision concerns, no bladder or bowel retention/incontinence, no perineal numbness/tingling, and ambulates independently. CT myelogram results have been reviewed and discussed. HPI: Ms Christiansen returns to the office on 10/15/2022 for a recheck of her low back pain and CT myelogram results. Patient continues to report and achy, burning, sharp lumbar pain into her low back that does radiate into bilateral lower extremities, associated with numbness and tingling. patient states that her pain is exacerbated with sitting and ambulation. For her symptoms, patient denies any medications at this time. Patient is on Plavix. Patient denies trialing any other modalities at this time. Otherwise the patient denies any f/c/sob/cp, no incision concerns, no bladder or bowel retention/incontinence, no perineal numbness/tingling, and ambulates independently. CT myelogram results have been reviewed and discussed. Dr. Nova has also reviewed imaging and recommends revision L3-Pelvis decompression and fusion. Ms. Christiansen was last seen on 08/11/22 regarding an evaluation of their low back pain. Patient reports a aching, burning, sharp lumbar pain and radicular symptoms ongoing for many years with no known injury or trauma to indicate an exact onset of their symptoms. Of note, she did have 2 prior lumbar surgeries with a L4-S1 decompression and fusion in 1999 and a ELOINA in 2005. In addition to their lumbar pain, they do report that it radiates into the bilateral lower extremities, associated with numbness and tingling through right leg and through the left foot. Overall the patient has seen a progressive increase in symptoms since their onset. Ms. Christiansen symptoms are exacerbated with any prolonged sitting, standing, ambulation, flexion/extension, and weightlifting, due to this they notes that it is severely difficult for Ms. Christiansen to complete many of their daily tasks. Overall she reports that she is unable to complete most of her daily activities due to the severity of her symptoms. Patient is having severe sleep disturbances as well due to their ongoing pain and associated symptoms. Regarding treatments, the patient has previously trialed a physician recommended home exercise program, Lyrica, chiropractics, heat/ice, all without relief. She did recently have a lumbar REBECA in 07/15/2022 without relief. Patient denies trialing any other modalities at this time. Otherwise the patient denies any f/c/sob/cp, no incision concerns, no bladder or bowel retention/incontinence, no perineal numbness/tingling, and ambulates independently. The patients' past social, medical, family, surgical history, as well as review of systems, have been reviewed. Please refer to the Neurosurgery History and Physical form that has been scanned in to our electronic medical record system. 14 points review of systems completed and as stated in HPI, all other systems reviewed are negative. Social History: Reviewed, see appropriate section of the chart for details. P3 Family History: Reviewed, see appropriate section of the chart for details. P2 Past Medical History: Reviewed, see appropriate section of the chart for details. P1 Current Medications: Rx: amitriptyline 10 mg tablet Ref: 0 Instructions: take 1 tablet (10 mg) by oral route 3 times per day Rx: cyclobenzaprine 10 mg tablet Ref: 0 Instructions: take 1 tablet (10 mg) by oral route 2 times per day as needed Rx: Ditropan Ref: 0 Rx: estradioL Ref: 0 Rx: isosorbide (bulk) Ref: 0 Rx: lisinopriL 20 mg tablet Ref: 0 Instructions: take 1 tablet (20 mg) by oral route once daily Rx: metoprolol succinate ER 25 mg tablet,extended release 24 hr Ref: 0 Instructions: take 1 tablet (25 mg) by oral route once daily Rx: Plavix 75 mg tablet Ref: 0 Instructions: take 1 tablet (75 mg) by oral route once daily Rx: pregabalin 150 mg capsule Ref: 0 Instructions: take 1 capsule (150 mg) by oral route 3 times per day Rx: QUEtiapine 400 mg tablet Ref: 0 Instructions: take 1 tablet (400 mg) by oral route 2 times per day Rx: Synthroid 125 mcg tablet Ref: 0 Instructions: take 1 tablet (125 mcg) by oral route once daily Rx: cyclobenzaprine 10 mg tablet Ref: 11 Instructions: TAKE ONE TABLET BY MOUTH 2 TIMES A DAY NEEDED P1 PHYSICAL EXAMINATION: General: Awake, alert, appropriate for age, in no acute distress. HEENT: No unusual neck masses around region of lateral neck triangle, thyroid, supraclavicular groove Extremities: Skin warm and dry without acute lesions, coloration, temperature, skin intact, no tenderness or erythema Integument: Hairy patches: ABSENT Dorsal skin dimples: ABSENT Cafe au lait spots: ABSENT Surgical incisions: well healed lateral and midline lumbar incisions. Palpation: Please see Pain drawing on Intake sheet for further detail. Midline spinal tenderness: yes, through L4-S1 E6 Cervical Tenderness: No E6 Paralumbar tenderness: No E6 Parathoracic tenderness: No E6 Buttocks tenderness: No E6 Sacroiliac Tenderness: No POSTURAL and MUSCULO-SKELETAL EVALUATION: Coronal Balance: NEUTRAL Recumbent testing: Patient is able to lay flat on back Sagittal Balance: NEUTRAL Shoulder Profile: LEVEL Pelvic Girdle: LEVEL Neck ROM: UNRESTRICTED Lumbar ROM: RESTRICTED Shoulder ROM: Symmetrical Hip ROM: Symmetrical Knee ROM: Symmetrical Hands: Normal appearance, symmetrical Feet: Normal appearance, Symmetrical VASCULAR STATUS : LEFT RIGHT Wrist Pulses INTACT INTACT Pedal Pulses (Dors. pedis & post.tibialis) INTACT INTACT Color NORMAL NORMAL Edema Absent Absent NEUROLOGIC EXAMINATION: Mental Status:Awake and alert, fully oriented, with normal attention, concentration and memory, and fluent, appropriate speech. Cranial Nerves: I: Olfactory not tested. II: Visual acuity normal, no visual field deficit noted with confrontation. III,IV: Normal pupillary reflexes & intact extraocular movements without nystagmus. V,: Intact symmetrical facial sensation. VII: Intact symmetrical facial motor movement VIII: Hearing intact. IX,X: Intact gag, swallow, & normal voice. XI: Sternocleidomastoid, trapezius function intact. XII: Tongue midline with normal movements. L'aprina's Sign: Negative / absent Spurling'Sign: Absent bilaterally. Cubital percussion test: Absent bilaterally. Caro-Tinel sign - Carpal region: Absent bilaterally. Straight Leg Raising: Absent bilaterally. Crossed straight leg raise: negative O8 MOTOR EXAM (0-5/5, N/T Muscle appearance: Symmetrical, without signs of atrophy or dystrophy UPPER EXTREMITY RIGHT LEFT Shoulder Abduction 5/5 5/5 Biceps 5/5 5/5 Triceps 5/5 5/5 Wrist Extension 5/5 5/5 Hand Intrnsics 5/5 5/5 Certified Pediatric Nurse Practitioner 5/5 5/5 Hand and finger dexterity intact bilaterally? yes Disdiadochokinesis examination negative bilaterally? yes LOWER EXTREMITY RIGHT LEFT Hip Flexion 4+/5 4/5 Knee Extension 4+/5 4/5 Knee Flexion 4+/5 4+/5 Dorsiflexion 4+/5 4/5 Plantarflexion 4+/5 4+/5 EHL 4/5 4/5 FHL 4/5 4/5 Toe heel walk / heel-toe walk intact while maintaining satisfactory balance? No Squatting/straightening w/o assistance to a min of 60 degree knee flexion? No Single leg stance: not intact bilaterally Trendelenburg sign negative bilaterally REFLEXES(0-4/2, NT)Upper ExtremityLower Extremity Right 2 2 Left 2 2 Pathological Reflexes RIGHT LEFT Caro's Absent Absent Clonus Absent Absent Babinski Absent Absent Sensory system (0-4, N/T) Test type RU JUANCARLOS RL LL Joint-Position 2 2 2 2 Vibration 2 2 2 2 Pain & LT sense 2 2 2 2 Dermatomal Deficit: None None L4-L5 L5-S1 Gait and Functional Evaluation: Ambulatory aids: Independent Romberg's test: Intact bilaterally Steady Gait RADIOGRAPHIC STUDIES: [facility] LumbarSpine: IMPRESSIONS: 1. Successful Lumbar Puncture for myelogram. 2. Diffuse Spinal canal narrowing through the L4-5 level. IMPRESSION: It was my pleasure to have seen and examined Adeline. I reviewed the patient's clinical syndrome, physical findings, and imaging studies during the appointment today. It is my impression that the patient has a diagnosis of. 1. s/p L4-S1 decompression and fusion 2. Adjacent segment disease L3-L4 3. 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 Bilateral lower extremity radiculopathy 5. L3-Pelvis spondylosis, spondylolisthesis and stenosis I outlined the natural course history without intervention and various interventional options. PLAN All options were reviewed today, we decided the best course of action would be: -Patient has been non smoking since 10/17/2022 -Advised patient to continue with supplements, health maintenance, and home exercise programs. Patient expressed understanding and will continue with these modalities. I discussed treatment options with the patient, including operative and non- operative options, and they have elected to proceed with the following surgical procedure: revision L3-Pelvis decompression and fusion. The indications, risks, benefits, and alternatives to surgery were discussed with the patient 4+ at length. Specifically (but not limited to) the risks of infection, stiffness, recurrence of symptoms, need for revision surgery, local numbness, neurovascular injury, and blood clots were discussed. The patient's questions were answered. The decision to proceed was made. Consent will be obtained for the procedure. -Ambulate daily -Take pain medications and post op medications as needed and as directed -Ice and rest for pain and swelling control. Ms. Christiansen is presenting for evaluation of Low back pain. It was my pleasure to have seen and examined Ms. Christiansen. In our visit today we have had a chance to go over subjective complaints, physical examination findings and treatments including the natural course history without intervention and various interventional options. The patients imaging demonstrates: CT Myelogram [facility] from10[facility]10[facility]22 of LumbarSpine: spondylosis with ASD and further collapse with impending instability Diffuse Spinal canal narrowing through the L4-5 level On physical exam, Ms. Christiansen demonstrates: Patient continues to report and achy, burning, sharp lumbar pain into her low back that does radiate into bilateral lower extremities, associated with numbness and tingling. I have explained to the patient that as their condition progresses it will cause further neurological deficits and eventual paralysis. Based on the patients imaging, physical exam, and the rapid progression and disabling nature of their symptoms, at this time I recommend surgery in the form of a: revision L3-Pelvis decompression and fusion. I discussed the risk and benefits of this procedure at length with Ms. Christiansen. The patient and family agreed to considered pursuing the procedure abovementioned. Prior to surgery, she should follow up with her PCP (Cardio, ID, IM etc) for clearance. Questions were invited and answered, and the patient wishes to proceed as outlined below. Currently, I am recommendin.revision L3-Pelvis decompression and fusion. 2.Follow up with PCP for surgical clearance 3.Review of surgical risks and benefits as well as an educational packet on the proposed surgical procedure. Risks: All surgical procedures come with inherent risks, including those related to positioning, anesthesia, intraoperative findings, and postoperative complications. It is important to understand that surgery does not come with any guarantee of a successful outcome as complications and adverse events are always possible. The patient was given a handout in office today discussing the surgical procedure and risks associated with the intervention, both of which were discussed with the patient. These risks include but are not limited to the following: * Experiencing same, different or even worse symptoms in back, neck, arms, or legs compared to before surgery. Requiring further surgery or other forms of treatment presently or at some time in the future at same or other levels of the intended spine surgery. On an extreme but fortunately relatively rare basis severe complication such as blindness, stroke, heart attack, temporary and/or permanent nerve injury, paralysis, coma, or may occur, sometimes without known explanation. Surgical complications may include but are not limited to risk of infection, fluid accumulation in the surgical dissection site, including a seroma or hematoma, that requires additional surgery, wound drainage, bleeding, new numbness or weakness, vision changes/loss, spinal fluid leakage, non-healing and/or infected incision, headaches, difficulty or inability to swallow, hoarseness, hemopneumothorax, pneumothorax, impotence, retrograde ejaculation, vaginal dryness; injury to nerves, spinal cord, blood vessels, lymphatics or other vital organs (i.e., bowel injury, injury to the great vessels); heterotopic bone formation; complications related to the hardware such as screws, rods, cages including misplaced hardware, device failure, instrumentation at the wrong spine level, hardware fracture/breakage, or hardware loosening; vertebral failure of the spinal column above or below the newly placed hardware; retained surgical instrumentations or devices and the need for further surgery. * Medical risks of the planned spine surgery include but are not limited to generalized Infections to the whole body or local areas outside of the surgical site (sepsis), heart attack, bleeding, anaphylaxis, meningitis, seizure, epilepsy, hearing loss, burn arevalo, laceration of the head or other areas of the body, bruising, hypersensitivity of the skin, bladder over distension; allergic reaction; shoulder injury related to positioning; fat, blood and air clots to other areas of the body like heart, lungs, brain; failure of internal organs such as lungs, kidneys, liver and excessive bleeding. If blood transfusions are necessary, note that transfusions may cause intolerance reactions such as anaphylaxis or other complex reactions. Despite best efforts, the results of spine surgery might not heal in terms of bone, soft tissues such as skin, fascia, ligaments, and joints. Additionally, in order to achieve best possible results, spine surgery may be carried out beyond the initially planned levels and involve decompression, fusion including insertion of hardware at levels other than the original intended area of surgical interest change some portions of the procedure in order to ensure the best possible outcomes. With spine surgery and spinal fusion, there are different off label uses of instrumentation (devices, implants and hardware) as well as biological substances (bone morphogenic proteins, demineralized bone matrix) as well as using extra bone from allograft sources (i.e. cadaver bone) or autograft (iliac crest bone, ribs, or the spine itself). The patient has been given information about these practices and their inherent risks and benefits. [facility] is an educational center that serves as a training facility for neurosurgical and orthopedic [employer] and Nursing students. Physician assistants are medically trained surgical providers who function in the outpatient, inpatient, and operating room setting under the direct supervision of the attending surgeon. Former[facility] has multiple operating rooms with single and overlapping rooms running daily. They currently function under the required guidelines as produced by the [facility] Finance Committee with regards to the overlapping rooms and will continue to comply with changes to this policy as they occur. The requirements include and are complied with as follows: (1) the critical portions of the overlapping rooms will not occur at the same time, (2) the attending physician will be physically present during the critical portions of the procedure and immediately available during the entire case, and (3) a back-up attending is designated should the primary attending not be immediately available. The patient has had a chance to review all the listed information, has been given print outs detailing this information, and has had all his/her questions answered to their satisfaction. It was my pleasure to have seen and examined Ms. Christiansen. In our visit today we have had a chance to go over my understanding of our patient's current condition, the natural course history without intervention and various interventional options. Questions were invited and answered, and the patient wishes to proceed as outlined above. I have seen and examined the patient for 25 minutes and we have spent more than 50% of the time in repeat and detailed counseling about the patient's condition, its natural course history with out and as much as can be predicted with surgery and re-review of various surgical treatment options. In conclusion, Ms. Christiansen and her family requested we proceed with the above suggested surgery and are willing to accept risks and limitations of the suggested surgery as nature of the disease process and our best attempts at treatment for the condition. Thank you again for allowing us to be part of your patient's care. Please don't hesitate to contact me if you have any further questions. Signed and authenticated by: jean Nova DO [facility] Minimally Invasive Spine Surgery [address] [employer], [address] [address] FOLLOW-UP Post procedure Pt Education (Informational booklet, instructions, etc) given at today's appointment: Yes .ED:Patient Education: Y Medications Reviewed: YES Attestation: In our visit today Ms. Christiansen and I have had a chance to go over my understanding of the patient's current condition, the natural course history without intervention and various interventional options. Questions were invited and answered, and the patient wishes to proceed as outlined above. I will be sure to keep you updated afterMs. Christiansen returns here for further follow-up. Thank you again for your referral. Please do not hesitate to contact me if you have any further questions. Signed and authenticated by: N[place] [facility] [address] [address] This message is confidential, intended only for the named recipient(s) and may contain information that is privileged or exempt from disclosure under applicable law. If you are not the intended recipient(s), you are notified that the dissemination, distribution or copying of this information is strictly prohibited. If you received this message in error, please notify the sender then delete this message. Patient verbalizes understanding of the information discussed. The above note was initiated by Dahiana Hassan, physician recording zoning assistant for Dr. Nima Nova. This note has been reviewed by Dr. Nova, who has made his personal changes and impressions for this document. CC: DO Mirlande # SIGNED BY Nima Nova ([facility])12/02/2022 07:04AM Past Medical History Past Medical History: Coronary Artery Disease (CAD), Chest Pain / Angina, Fibromyalgia, Hyperlipidemia, Hypertension, Myocardial Infarction (PR), Osteoarthritis (OA), Thyroid Disorder Additional Past Medical History / Comment(s): interstitial cystitis; constipation, gallstones, LUMBAR BACK PAIN Last Myocardial Infarction Date:: 2013 History of Any Multi-Drug Resistant Organisms: None Reported Past Surgical History: Back Surgery, Bladder Surgery, Breast Surgery, C holecystectomy, Heart Catheterization With Stent, Hysterectomy, Orthopedic Surgery Additional Past Surgical History / Comment(s): bladder stimulator, neck surgery, total 6 cardiac stents - back fusion, neck fusion, jeff bunionectomy, revision of back surgery screws, cage and rods were suppose to be placed but DR Nova doesn't see them on imaging. Past Anesthesia/Blood Transfusion Reactions: No Reported Reaction Date of Last Stent Placement:: approx 3 yrs ago Past Psychological History: Anxiety, Bipolar, Depression, Panic Disorder Additional Psychological History / Comment(s): "stress related" Smoking Status: Former smoker Past Alcohol Use History: None Reported Additional Past Alcohol Use History / Comment(s): quit smoking 01/20/22 Past Drug Use History: None Reported Additional Drug Use History / Comment(s): occ. - Past Family History Father Family Medical History: Cancer Medications and Allergies Home Medications Medication Instructions Recorded Confirmed Type Metoprolol Succinate (ER) [Toprol 25 mg PO HS 07/10/21 12/02/22 History XL] Pregabalin [Lyrica] 150 mg PO TID 07/18/21 12/02/22 History Clopidogrel Bisulfate [Plavix] 75 mg PO DAILY 01/22/22 12/02/22 History Levothyroxine Sodium [Synthroid] 125 mcg PO DAILY 06/18/22 12/02/22 History QUEtiapine [SEROquel] 400 mg PO HS 30 Days tab 06/19/22 12/02/22 Rx Cyclobenzaprine [Flexeril] 10 mg PO HS 09/23/22 12/02/22 History Amitriptyline HCl [Elavil] 25 mg PO HS 10/30/22 12/02/22 History DULoxetine HCL [Cymbalta] 120 mg PO HS 10/30/22 12/02/22 History Oxybutynin Chloride [Oxybutynin 10 mg PO HS 10/30/22 12/02/22 History Chloride ER] Aspirin 81 mg PO DAILY #30 tab 11/01/22 12/02/22 Rx Atorvastatin [Lipitor] 40 mg PO DAILY #30 tab 11/01/22 12/02/22 Rx Allergies Allergy/AdvReac Type Severity Reaction Status Date / Time ciprofloxacin [From Cipro] Allergy Anaphylaxis Verified 12/02/22 06:29 Penicillins Allergy Swelling/Hi Verified 12/02/22 06:29 ves vancomycin Allergy Dyspnea Verified 12/02/22 06:29 ketorolac tromethamine AdvReac Itching Verified 12/02/22 06:29 [From Toradol] NSAIDS (Non-Steroidal AdvReac STOMACH Verified 12/02/22 06:29 Anti-Inflamma ULCER Physical Examination Osteopathic Statement: *. No significant issues noted on an osteopathic structural exam other than those noted in the History and Physical/Consult.
[2022-12-02] MEDS ORDERED: KETAMINE 10 MG/ML 20 ML VIAL ONE (07:25)
[2022-12-02] MEDS ORDERED: WATER FOR INJECTION, STERILE 10 ML VIAL IV ONE (07:25)
[2022-12-02] MEDS ORDERED: ALBUMIN HUMAN 5% (25gm) 500 ML VIAL IVPB ONE (07:25)
[2022-12-02] MEDS ORDERED: MIDAZOLAM 2 MG/2 ML VIAL ONE (07:25)
[2022-12-02] MEDS ORDERED: GLYCOPYRROLATE 0.2 MG/ML 2 ML VIAL ONE (07:25)
[2022-12-02] MEDS ORDERED: ROCURONIUM 10 MG/ML (5 ML VIAL) IV ONE (07:25)
[2022-12-02] MEDS ORDERED: LIDOCAINE 2% INJ 20 MG/ML (2 ML VIAL) ONE (07:25)
[2022-12-02] MEDS ORDERED: PROPOFOL 10 MG/ML 20 ML VIAL IV ONE (07:25)
[2022-12-02] MEDS ORDERED: VASOPRESSIN 20 UNIT/ML 1 ML VIAL ONE (07:25)
[2022-12-02] MEDS ORDERED: ATROPINE SULFATE 0.4 MG/ML 1 ML VIAL ONE (07:25)
[2022-12-02] MEDS ORDERED: TRANEXAMIC ACID IN NACL,ISO-OS 1,000 MG/100 ML BAG ONE (07:25)
[2022-12-02] MEDS ORDERED: SUCCINYLCHOLINE CHLORIDE 200 MG/10 ML VIAL IV ONE (07:25)
[2022-12-02] MEDS ORDERED: fentaNYL (PF) 50 MCG/ML 2 ML AMP ONE (07:25)
[2022-12-02] MEDS ORDERED: PHENYLEPHRINE-0.9% NACL SYG 1,000 MCG/10 ML SYRINGE ONE (07:25)
[2022-12-02] MEDS ORDERED: EPINEPHrine 10 ML SYRINGE (0.1 MG/ML) ONE (07:25)
[2022-12-02] MEDS ORDERED: CALCIUM CHLORIDE 100 MG/ML 10 ML SYRINGE ONE (07:25)
[2022-12-02] MEDS ORDERED: ePHEDrine 50 MG/ML 1 ML VIAL ONE (07:25)
[2022-12-02] MEDS ORDERED: SODIUM BICARB 8.4% 50 ML SYR (1 MEQ/ML) ONE (07:25)
[2022-12-02] MEDS ORDERED: NOREPINEPHRINE 1 MG/ML 4 ML VIAL IV ONE (07:25)
[2022-12-02] MEDS ORDERED: LACTATED RINGERS 1,000 ML IV ONE ×4 (08:36→10:15)
[2022-12-02] MEDS ORDERED: GENTAMICIN 80 MG in SODIUM CHLORIDE 0.9% IRRIGATIO 3,000 ML IRRIGATION ONE (10:06)
[2022-12-02] MEDS ORDERED: ceFAZolin 3,000 MG in SODIUM CHLORIDE 0.9% IRRIGATIO 3,000 ML IRRIGATION ONE (10:06)
[2022-12-02 11:04] LABS: Glucose,Whole Blood 193 mg/dL (70-110)
[2022-12-02] MEDS ORDERED: IPRATROPIUM-ALBUTEROL 3 ML NEB INHALATION PRN (11:06)
[2022-12-02 11:36] LABS: ABG HCO3 23 mmol/L (21-25); ABG PCO2 46 mmHg (35-45); ABG PH 7.32 (7.35-7.45); ABG PO2 >400 mmHg (83-108); ABG TCO2 25 mmol/L (19-24); Allen Test Performed? Yes
--- NOTE | 2022-12-02 11:40 | XR ---
EXAMINATION TYPE: XR chest 1V portable DATE OF EXAM: 12/02/2022 COMPARISON: 10/30/2022 HISTORY: ET tube placement TECHNIQUE: Single frontal view of the chest is obtained. FINDINGS: ET tube 3.3 cm above bryan. NG tube appears in good position coursing into left upper quadrant. Post operative changes overlying the cervical spine. Hypertrophic and degenerative changes spine. Subsegme ntal areas of consolidation are noted. No pleural effusion or sizable pneumothorax. Suggestion of a c oronary stent. IMPRESSION: 1. ET and NG tubes appear in good position. 2. Patchy infiltrate left lower lobe could be on the basis of atelectasis rather than pneumonia or de veloping infiltrate correlate clinically.
--- NOTE | 2022-12-02 11:44 | FL ---
Intraoperative/procedural fluoroscopic services were provided. Total fluoroscopy time is 16 seconds w ith a total of 7 submitted images to PACS. Please see the operative/procedural note for further detai ls.
--- NOTE | 2022-12-02 11:55 | P.OP ---
Date of Procedure: 12/02/22 Preoperative Diagnosis: 1. 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 s/p L4-S1 PLIF with psuedoarthrosis L4-5 3. LE radiculopathy 4. LE weakness 5. [facility] patient Postoperative Diagnosis: 1. 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 s/p L4-S1 PLIF with psuedoarthrosis L4-5 3. LE radiculopathy 4. LE weakness 5. [facility] patient Procedure(s) Performed: 1. Revision posteriolateral fusion L3-S1 ([id number], [id number]) 2. Removal of hardware L4-S1 3. Exploration of fusion L4-S1 with pseudoarthrosis exploration L4-5 4. Use of RedCap navigation for screw placement Remainder of procedures aborted due to cardiac arrest on table. Use of IONM screws unable to be tested due to aborted procedure. Implants: Globus Creo Screw and jose system -MagnatOs, Allocel, Autograft, Allograft Anesthesia: JONI Surgeon: Nima Nova Transverse Abdominal Muscle Nurse #1: Balbir Key (Was present and assisted with all aspects of the case from positioning to dressing placement) Estimated Blood Loss (ml): 200 IV fluids (ml): 1,300 Urine output (ml): 350 Pathology: none sent Condition: stable Disposition: ICU Indications for Procedure: Ms. Christiansen is presenting for evaluation of Low back pain. It was my pleasure to have seen and examined Ms. Christiansen. In our visit today we have had a chance to go over subjective complaints, physical examination findings and treatments including the natural course history without intervention and various interventional options. The patients imaging demonstrates: [facility]22 of LumbarSpine: spondylosis with ASD and further collapse with impending instability Diffuse Spinal canal narrowing through the L4-5 level On physical exam, Ms. Christiansen demonstrates: Patient continues to report and achy, burning, sharp lumbar pain into her low back that does radiate into bilateral lower extremities, associated with numbness and tingling. I have explained to the patient that as their condition progresses it will cause further neurological deficits and eventual paralysis. Based on the patients imaging, physical exam, and the rapid progression and disabling nature of their symptoms, at this time I recommend surgery in the form of a: revision L3-Pelvis decompression and fusion. I discussed the risk and benefits of this procedure at length with Ms. Christiansen. The patient and family agreed to considered pursuing the procedure abovementioned. Prior to surgery, she should follow up with her PCP (Cardio, ID, IM etc) for clearance. Questions were invited and answered, and the patient wishes to proceed as outlined below. Currently, I am recommendin.revision L3-Pelvis decompression and fusion. Description of Procedure: The patient was seen and examined in the preoperative area. All preoperative protocols were followed. Informed consent was obtained risks and benefits of the procedure were discussed at length. Risks including bleeding infection damage to the surrounding tissue and risk of reoperation were discussed with the patient. Risk of anesthesia up to and including was a discussed with the patient. These are outlined in the risk review. They were willing to accept these risks and all of the risks of surgery. The patient was given a weight- based dose of antibiotics in the form of 2 g Ancef. The patient was seen and evaluated by the anesthesia team who deemed them fit for surgery. The site was marked, the patient was willing to proceed with the procedure. The patient was transferred to the operative suite by the Department of anesthesia. They were then drifted off to sleep by the department anesthesia and [anesthesia type] was performed. The patient tolerated this well. [Reaves catheter was placed by nursing staff, atraumatically]. Once confirmation of lines and ventilation the patient was transferred to a [prone Shree table very carefully]. All bony prominences including wrists, elbows, axilla, chest, hips, and thighs, and feet were padded very well. Special attention was paid to the genitalia and these were padded accordingly. SCDs were placed on bilateral lower extremities and were connected. Arms were well padded and placed [on arm boards up and out in the 90/90 position]. Once in position, again we confirmed good ventilation capabilities and that lines were running appropriately. The patient's lumbar spine was then exposed. 1010s were placed outlining the incision site. Standard alcohol was used to clean the incision site and allowed to dry. C-arm was used to biomark the patient and confirm level for incision which was marked with a skin marker. Operative briefing was performed with all teams and everyone in agreement to proceed. The patient was then prepped and draped in a normal sterile fashion. Timeout was then performed and all parties were in agreement with the procedure to be performed. midline skin incision was made over the previously marked. Dissection taken down to identify the spinous process of L2 through S1. Subperiosteal dissection was taken out over L2-L3 and L3-L4 transverse processes were identified. From here we dissected out over exuberant scar tissue and exuberant heterotopic bone formation over the lamina out over the screws on the right and left-hand side. These were identified and cleaned. We then removed the set screws and removed the rope from inside the screw heads. The screws were then removed without incident screws at L4 were loose bilaterally as well as L5 on the right-hand side. We then explored the fusion in this area there is exuberant heterotopic bone that had formed over the screws as well as the lamina on the left-hand side however there was no attachment of his bone fusion noted in this area. There was still mobility between L3 and L4 as well as L4 and L5. L5-S1 seemed fused fairly well. Once this was accomplished we irrigated and debrided the wound thoroughly of any scar tissue or any suspect tissue from the previous hardware being in position. We probed the screw tracts and they were stable and safe. We then placed a spinous process tracker for the RedCap navigation at S1. 8 intraoperative 3-D C-arm spent was then obtained and loaded and strengthening navigation. Then proceeded placing screws using navigation first with a navigated bur to obtain a starting point followed by a navigated tap and finally a navigated screwdriver with a measured screw. We placed screws bilaterally at L3-L4. while we were attempting to place screws at L5 were notified by anesthesia that the patient had become unstable she had been slowly dropping her pressure and was now in ventricular fibrillation. Due to this the patient was temporizing crashed packing the wound and covering it with Ioband. Anesthesia was then treating her appropriately with medications the bed was brought into the room in her about. Her off the bed when she converted back into sinus rhythm with good pressures. Please see anesthesia record for medicines given. We then waited a period of time to see if she would remain stable. She did. A discussion was had then with G anesthesiologist and the ELECTRONICS ASSEMBLER of how to proceed. Due to the patient only having part of her screws in and the potential for instability in the area and the need for wound closure made the most sense to finish placing 3 more screws secure the rods and then closer. We discussed this at length and this was the best way to proceed forward for the patient. She remained stable. The patient was then re-prepped with Betadine solution in the wound as well as around. She was then draped in a normal sterile fashion. The wound was thoroughly irrigated with Betadine solution followed by antibiotic solution. We then placed screws bilaterally at L5 and unilaterally at S1 on the right-hand side. This is done using a freehand technique and lateral fluoroscopic imaging. We then confirmed placement of all screws with AP and lateral screws were safe. Then quickly placed rods and secured them to the set screws. the set screws were then final tightened. Bone graft and MagnatOs was then placed in the posterior lateral gutters. The wound was thoroughly irrigated with antibiotic and normal saline solutions. A deep drain was placed and sewn into position. We then proceeded with crashed closure. #1 PDS was placed in the fascia for a watertight closure followed by 0 Vicryl in the deep subcu and superficial subcu tissue. Yohan were placed in the skin and wound edges approximated well. The skin was then cleaned with alcohol and dried and dressed with a sterile op to foam dressing 4 x 4 drain sponge and Tegaderm. This was then covered with Ioban. The patient remained stable with plans for the ICU The patient was transferred back to their hospital bed atraumatically. [Drain continued to hold suction and were in good position]. Patient was then awakened and extubated by the department of anesthesia she was stable and They were transferred to the ICU in stable condition. During this the ICU staff was contacted and was made aware of her situation as well as her state. I did discuss the case directly with the ICU, critical care doctor as well as the ICU staff nurses and anesthesia the room. In the ICU the patient was stable with systolic blood pressures in the 120s to 130s. Heart rate in the 80s. She was on the ventilator and was sedated.
--- NOTE | 2022-12-02 11:58 | P.PN ---
Progress Note - Text Progress Note Date: 12/02/22 Postop: The patient was found to the ICU and settled in the ICU with the ICU staff. I spoke directly with the [facility] and hospital physician. The patient state as well as the happenings in the OR. We discussed this with the nursing staff as well as well as anesthesia. The discussed keeping on top of her pressures and she has some circulatory time she cannot follow behind 100 medications. I discussed with the staff that is okay to anticoagulate her if needed she does have a drain in. She does not have open lamina as we were not able to form the spinal procedure as we needed to work early. We discussed cardiac monitoring as well as cardiac consult which will need to be placed. We also discussed her further treatment. I spoke with the family in the waiting room after all this and discussed with them happenings in the OR as well as the issues. We discussed at length the potential outcomes and we are watching for. At this point we did discuss that the patient is stable in the ICU intubated with stable pressures and stable heart rate as well as rhythm however that her heart went into a unfavorable rhythm during OR for which we aborted the procedure finished we could do when she was stable in her best interest and immediately transferred to the ICU. She is now remained stable since then. We will keep the family up-to-date with everything was going on. They understood and were comfortable with this.
[2022-12-02] MEDS: NOREPINEPHRINE 4 MG in SODIUM CHLORIDE 0.9% 250 ML IV SCH (12:07)
[2022-12-02 12:12] LABS: Basophils % (A) 0 %; Eosinophils % (A) 0 %; HCT 37.2 % (34.0-46.0); HGB 12.4 gm/dL (11.4-16.0); Lymphocytes # (A) 0.6 k/uL (1.0-4.8); Lymphocytes % (A) 8 %; MCH 33.1 pg (25.0-35.0); MCHC 33.3 g/dL (31.0-37.0); MCV 99.4 fL (80.0-100.0); Mean Platelet Volume 7.9; Monocytes # (A) 0.1 k/uL (0-1.0); Monocytes % (A) 1 %; Neutrophils # (A) 6.9 k/uL (1.3-7.7); Neutrophils % (A) 90 %; Platelet Count 148 k/uL (150-450); RBC 3.74 m/uL (3.80-5.40); RDW 13.1 % (11.5-15.5); WBC 7.6 k/uL (3.8-10.6)
[2022-12-02 12:32] LABS: ALT 141 U/L (4-34); AST 390 U/L (14-36); African American GFR (CKD) >90 (>60 ml/min/1.73 sqM); Albumin 3.7 g/dL (3.5-5.0); Alkaline Phosphatase 79 U/L (38-126); Anion Gap 12 mmol/L; Blood Urea Nitrogen 11 mg/dL (7-17); Calcium 8.9 mg/dL (8.4-10.2); Carbon Dioxide 22 mmol/L (22-30); Chloride 104 mmol/L (98-107); Glucose 202 mg/dL (74-99); Non-African American GFR(CKD) >90 (>60 ml/min/1.73 sqM); Potassium 3.8 mmol/L (3.5-5.1); Sodium 138 mmol/L (137-145); Total Bilirubin 0.8 mg/dL (0.2-1.3); Total Protein 5.6 g/dL (6.3-8.2)
[2022-12-02] MEDS ORDERED: NALOXONE 0.4 MG/ML 1 ML VIAL IV PRN (13:45)
--- NOTE | 2022-12-02 14:29 | P.CNPUL ---
History of Present Illness Consult date: 12/02/22 Requesting physician: Nima Nova Reason for consult: other Chief complaint: Respiratory failure, cardiopulmonary instability. History of present illness: Pulmonary consult dated 12/02/2022. 62-year-old female who apparently initially presented to orthopedics, with back pain. The patient has a history of lumbar fusion 1999 with revision, and 2005. The patient was scheduled to have a L4-S1 decompression and fusion, and that procedure was scheduled for 12/02/2022. During the procedure, the patient had issues with low blood pressure, and ventricular fibrillation, and on 2 occasions, he did significant resuscitation. This included fluids, epinephrine, norepinephrine, etc. I was called by the anesthesiologist, Dr. French, and a bed was provided the patient in the intensive care unit. In addition to low back pain, chronic, the patient has a history of hypertension, urinary incontinence, hyperlipidemia, hypothyroidism, among other things. Currently, the patient's in the intensive care unit. Her ventilator settings include the volume assist control, rate 14, tidal volume 600, FiO2 50%, and PEEP of 5. Blood gases, show pO2 of 400, pCO2 45, and a pH is 7.31. These blood gases are consistent with a mild respiratory acidosis. The blood gases were done on a volume assist control rate of 10, and an FiO2 of 100%. Adjustments included increasing the rate 18, reducing the tidal volume to 450, and drop in the FiO2 down from 100%, to 50%, down to 40%. Currently, the patient's on propofol at 50 mcg/kg/m, norepinephrine at 1 mcg/m, and lactated Ringer's at 50 mL an hour. Cardiology has been consulted. She has 2 peripheral IVs, and an arterial line, placed by anesthesia. Other laboratory data includes a white count of 7.6, hemoglobin 12.4, hematocrit 37.2, and a platelet count of 148,000. Sodium 138, potassium 3.8, chlorides 104, CO2 22, BUN 11, creatinine 0.61. AST was 390, ALT was 141. Post surgical chest x-ray shows the endotracheal tube and NG tube to be in good locations. And there is a patchy infiltrate or atelectasis in the left lower lobe. Unfortunately, the entire procedure, was aborted, and the incision was closed according to the surgeon. Review of Systems REVIEW OF SYSTEMS: CONSTITUTIONAL: [Negative.] NEUROLOGIC: [ Negative.] HEENT: [ Negative.] CARDIAC: [Negative.] PULMONARY: [Negative.] GI: [Negative.] : [Negative.] RHEUMATOLOGIC: Chronic back pain. IMMUNOLOGIC: [ Negative.] ENDOCRINE: [Negative. ] DERMATOLOGIC: [Negative.] Past Medical History Past Medical History: Coronary Artery Disease (CAD), Chest Pain / Angina, Fibromyalgia, Hyperlipidemia, Hypertension, Myocardial Infarction (AR), Osteoarthritis (OA), Thyroid Disorder Additional Past Medical History / Comment(s): interstitial cystitis; constipation, gallstones, LUMBAR BACK PAIN Last Myocardial Infarction Date:: 2013 History of Any Multi-Drug Resistant Organisms: None Reported Past Surgical History: Back Surgery, Bladder Surgery, Breast Surgery, Cholecystectomy, Heart Catheterization With Stent, Hysterectomy, Orthopedic Surgery Additional Past Surgical History / Comment(s): bladder stimulator, neck surgery, total 6 cardiac stents - back fusion, neck fusion, jeff bunionectomy, revision of back surgery screws, cage and rods were suppose to be placed but DR Festus milian doesn't see them on imaging. Past Anesthesia/Blood Transfusion Reactions: No Reported Reaction Date of Last Stent Placement:: approx 3 yrs ago Smoking Status: Former smoker - Past Family History Father Family Medical History: Cancer Medications and Allergies Home Medications Medication Instructions Recorded Confirmed Type Metoprolol Succinate (ER) [Toprol 25 mg PO HS 07/10/21 12/02/22 History XL] Pregabalin [Lyrica] 150 mg PO TID 07/18/21 12/02/22 History Clopidogrel Bisulfate [Plavix] 75 mg PO DAILY 01/22/22 12/02/22 History Levothyroxine Sodium [Synthroid] 125 mcg PO DAILY 06/18/22 12/02/22 History QUEtiapine [SEROquel] 400 mg PO HS 30 Days tab 06/19/22 12/02/22 Rx Cyclobenzaprine [Flexeril] 10 mg PO HS 09/23/22 12/02/22 History Amitriptyline HCl [Elavil] 25 mg PO HS 10/30/22 12/02/22 History DULoxetine HCL [Cymbalta] 120 mg PO HS 10/30/22 12/02/22 History Oxybutynin Chloride [Oxybutynin 10 mg PO HS 10/30/22 12/02/22 History Chloride ER] Aspirin 81 mg PO DAILY #30 tab 11/01/22 12/02/22 Rx Atorvastatin [Lipitor] 40 mg PO DAILY #30 tab 11/01/22 12/02/22 Rx Allergies Allergy/AdvReac Type Severity Reaction Status Date / Time ciprofloxacin [From Cipro] Allergy Anaphylaxis Verified 12/02/22 06:29 Penicillins Allergy Swelling/Hi Verified 12/02/22 06:29 ves vancomycin Allergy Dyspnea Verified 12/02/22 06:29 ketorolac tromethamine AdvReac Itching Verified 12/02/22 06:29 [From Toradol] NSAIDS (Non-Steroidal AdvReac STOMACH Verified 12/02/22 06:29 Anti-Inflamma ULCER Physical Exam Osteopathic Statement: *. No significant issues noted on an osteopathic st ructural exam other than those noted in the History and Physical/Consult. Vitals: Vital Signs Temp Pulse Pulse Resp BP BP Pulse Ox 12/02/22 14:15 58 L 18 98 12/02/22 14:00 60 18 140/87 98 12/02/22 13:45 65 18 98 12/02/22 13:30 63 18 98 12/02/22 13:15 65 18 99 12/02/22 13:00 77 14 100 12/02/22 12:45 76 14 100 12/02/22 12:30 79 14 100 12/02/22 12:25 79 14 100 12/02/22 12:20 77 14 100 12/02/22 12:15 78 14 100 12/02/22 12:10 77 14 100 12/02/22 12:05 75 14 175/73 100 12/02/22 12:00 73 14 100 12/02/22 11:55 69 14 100 12/02/22 11:50 70 14 99 12/02/22 11:45 71 14 99 12/02/22 11:40 71 10 L 100 12/02/22 11:35 69 10 L 100 12/02/22 11:30 97.4 F L 67 10 L 100 12/02/22 11:08 12/02/22 11:01 12/02/22 07:23 56 L 16 117/60 95 12/02/22 07:11 97.6 F 61 20 127/66 96 FiO2 12/02/22 14:15 12/02/22 14:00 12/02/22 13:45 12/02/22 13:30 12/02/22 13:15 12/02/22 13:00 12/02/22 12:45 12/02/22 12:30 12/02/22 12:25 12/02/22 12:20 12/02/22 12:15 12/02/22 12:10 12/02/22 12:05 12/02/22 12:00 50 12/02/22 11:55 12/02/22 11:50 12/02/22 11:45 12/02/22 11:40 12/02/22 11:35 12/02/22 11:30 100 12/02/22 11:08 100 12/02/22 11:01 100 12/02/22 07:23 12/02/22 07:11 Intake and Output 12/01/22 12/02/22 12/02/22 22:59 06:59 14:59 Intake Total 4027.479 Output Total 1975 Balance 2052.479 Intake: IV 4002 LR 150 Intake, IV Titration 25.479 Amount propofoL 1,000 mg In 25.479 Empty Bag 1 bag @ 15 MCG/ KG/MIN 7.002 mls/hr IV . [id number] [facility] Rx#:[id number] Output: Urine 1775 Estimated Blood Loss 200 Other: Voiding Method Indwelling Catheter Weight 77.8 kg 77.8 kg ABP, PAP, CO, CI - Last 8 Hours Arterial Blood Pressure 146/67 Arterial Blood Pressure 147/68 Arterial Blood Pressure 157/72 Arterial Blood Pressure 143/71 Arterial Blood Pressure 135/66 Arterial Blood Pressure 150/73 Arterial Blood Pressure 139/69 Arterial Blood Pressure 149/73 Arterial Blood Pressure 149/73 Arterial Blood Pressure 146/72 Arterial Blood Pressure 154/75 Arterial Blood Pressure 168/80 Arterial Blood Pressure 192/90 Arterial Blood Pressure 185/88 Arterial Blood Pressure 162/78 Arterial Blood Pressure 136/67 Arterial Blood Pressure 124/60 Arterial Blood Pressure 136/65 Arterial Blood Pressure 148/70 Arterial Blood Pressure 170/81 No acute distress, sedated, with an orally placed endotracheal tube and NG tube. HEENT examination is grossly unremarkable. Neck supple. Full range of motion. No adenopathy thyromegaly or neck vein distention. Cardiovascular examination reveals regular rhythm rate. S1-S2 normal. No S3 or S4. No discernible murmur noted. Heart rate 58 bpm. Heart sounds are distant. Lungs reveal clear breath sounds. Breath sounds are equal bilaterally. No adventitious lung sounds including wheezes rhonchi or crackles. Saturations are 98%. Abdomen soft without bowel sounds. Extremities are intact. No cyanosis clubbing or edema. Skin is without rash or lesion. Neurologic examination could not be evaluated at this time. Results - Laboratory Findings CBC and BMP: 12/02/22 11:55 12/02/22 11:50 ABG ABG pH 7.32 (7.35-7.45) L 12/02/22 11:31 ABG pCO2 46 mmHg (35-45) H 12/02/22 11:31 ABG pO2 >400 mmHg (83-108) H 12/02/22 11:31 ABG O2 Saturation 100.0 % (94-97) H 12/02/22 11:31 Abnormal lab findings: Abnormal Labs 12/02/22 12/02/22 12/02/22 11:03 11:31 11:50 RBC Plt Count Lymphocytes # ABG pH 7.32 L ABG pCO2 46 H ABG pO2 >400 H ABG Total CO2 25 H ABG O2 Saturation 100.0 H Glucose 202 H POC Glucose (mg/dL) 193 H AST 390 H ALT 141 H Total Protein 5.6 L 12/02/22 11:55 RBC 3.74 L Plt Count 148 L Lymphocytes # 0.6 L ABG pH ABG pCO2 ABG pO2 ABG Total CO2 ABG O2 Saturation Glucose POC Glucose (mg/dL) AST ALT Total Protein - Diagnostic Findings Chest x-ray: image reviewed Assessment and Plan Assessment: Postop day #0, attempted, L4-S1 decompression and fusion for chronic back pain. Significant cardiopulmonary instability characterized by ventricular fibrillation, and hypotension, resulting in the premature termination of the procedure. Respiratory failure, requiring admission to the ICU, with an orally placed endotracheal tube, and mechanically ventilated. History of CAD, with previous PCI, and stent placement. History of hyperlipidemia. History of hypertension. History of urinary incontinence. History of hypothyroidism. History of chronic tobacco use. Plan: Plan dated 12/02/2022. The patient was transferred to the intensive care unit. The patient is maintained on the mechanical ventilator. We will keep her on the ventilator alejandro meadows. I've asked cardiology to see the patient has a preoperatively. The blood gases show a very mild respiratory acidosis. The tidal volume was reduced from 600 down to 450 mL. The rate was increased from 14 to 18. The FiO2 was eventually dropped to 40%. The patient remains on propofol at 50 mcg/kg/m, lactated Ringer's at 50 mL an hour, and norepinephrine at 1 mcg/m. Labs, x- rays, and medications are reviewed. Additional recommendations and suggestions are forthcoming. Time with Patient: Greater than 30
--- NOTE | 2022-12-02 14:38 | P.CONS ---
History of Present Illness - Reason for Consult Consult date: 12/02/22 HTN Requesting physician: Nima Nova - Chief Complaint back pain - History of Present Illness Patient is a 42-year-old female with hypertension, dyslipidemia, coronary artery disease status post 6 stents, and fibromyalgia who initially presented for lumbar decompression and fusion L4 to S1. During the procedure the patient had low blood pressure and developed ventricular fibrillation on 2 separate occasions. This required resuscitation with IV fluids, epinephrine, and norepinephrine. She was subsequently admitted to the ICU. We were consulted for hypertensive management. Her procedure was aborted early due to the ventricular fibrillation and she did heparin infusion posterior lateral fusion of L3 to S1, removal of hardware L4 to S1. Patient seen and examined at bedside. She is sedated on vent. Family present at bedside and all questions answered. Vital signs reviewed-- BP currently 120/82 96% on 40% FiO2 General: nontoxic, mild distress, appears at stated age Derm: warm, dry Eyes:pupils equal round reactive to light, + conjunctival edema, no lid lesion ENT: Nose and ears atraumatic, no thrush, no pharyngeal erythema Cardiovascular: S1S2 reg, no murmur, positive posterior tibial pulse bilateral, no edema, capillary refill less than 2 seconds Lungs: clear to auscultation bilateral, no rhonchi, no rales, no wheeze, no accessory muscle use Abdominal: soft, nontender to palpation, no guarding, no appreciable organomegaly, normal bowel sounds Ext: no gross muscle atrophy, muscle strength 5 out of 5 in all 4 extremities, no contractures Neuro: CN II-XII grossly intact, light touch intact all 4 extremities, finger to nose within normal limits, : Reaves in Place Psych: Alert, oriented, appropriate affect Assessment: Ventricular fibrillation arrest Thrombocytopenia, anticipated outcome Transaminitis, suspect ischemic L3-S1 fusion revision HTN HLD CAD with hx of stents Imaging: Chest x-ray reviewed by myself-mild left lower lobe atelectasis versus early infiltrate. Data Review: Blood cell count 7.6, hemoglobin 12.4, hematocrit 37.2, platelets 148, sodium 138, potassium 3.8, chloride 104, carbon dioxide 22, anion gap 12, BUN 11, creatinine 0.61, glucose 202, AST 390, ALT 141, albumin 3.7. ABG showed pH of 7.32, pCO2 46, PaO2 greater than 400, bicarbonate 23. Plan: - Case discussed with Dr. Nova at length. Back is currently stable but procedure was aborted early due to cardiac arrhythmia. - check echo for EF - Await cardio recs - Pulmonary consult reviewed. Plan is to remain on vent overnight. - Check magnesium, troponin, and TSH - Start Heparin in AM - Levophed 0.02 mcg/kg/min - follow CBC in AM for anemia, CMP in AM for renal function and transaminitis after cardiac arrest Thank you for allowing us to participate in the care of this pleasant patient. Do not hesitate to contact us with questions. Someone can be reached from the [facility] hospitalist group all hours of the day at [phone] or via [facility]. Past Medical History Past Medical History: Coronary Artery Disease (CAD), Chest Pain / Angina, Fibromyalgia, Hyperlipidemia, Hypertension, Myocardial Infarction (ID), Osteoarthritis (OA), Thyroid Disorder Additional Past Medical History / Comment(s): interstitial cystitis; constipation, gallstones, LUMBAR BACK PAIN Last Myocardial Infarction Date:: 2013 History of Any Multi-Drug Resistant Organisms: None Reported Past Surgical History: Back Surgery, Bladder Surgery, Breast Surgery, Cholecystectomy, Heart Catheterization With Stent, Hysterectomy, Orthopedic Surg dale Additional Past Surgical History / Comment(s): bladder stimulator, neck surgery, total 6 cardiac stents - back fusion, neck fusion, jeff bunionectomy, revision of back surgery screws, cage and rods were suppose to be placed but DR Nova doesn't see them on imaging. Past Anesthesia/Blood Transfusion Reactions: No Reported Reaction Date of Last Stent Placement:: approx 3 yrs ago Smoking Status: Former smoker - Past Family History Father Family Medical History: Cancer Medications and Allergies Home Medications Medication Instructions Recorded Confirmed Type Metoprolol Succinate (ER) [Toprol 25 mg PO HS 07/10/21 12/02/22 History XL] Pregabalin [Lyrica] 150 mg PO TID 07/18/21 12/02/22 History Clopidogrel Bisulfate [Plavix] 75 mg PO DAILY 01/22/22 12/02/22 History Levothyroxine Sodium [Synthroid] 125 mcg PO DAILY 06/18/22 12/02/22 History QUEtiapine [SEROquel] 400 mg PO HS 30 Days tab 06/19/22 12/02/22 Rx Cyclobenzaprine [Flexeril] 10 mg PO HS 09/23/22 12/02/22 History Amitriptyline HCl [Elavil] 25 mg PO HS 10/30/22 12/02/22 History DULoxetine HCL [Cymbalta] 120 mg PO HS 10/30/22 12/02/22 History Oxybutynin Chloride [Oxybutynin 10 mg PO HS 10/30/22 12/02/22 History Chloride ER] Aspirin 81 mg PO DAILY #30 tab 11/01/22 12/02/22 Rx Atorvastatin [Lipitor] 40 mg PO DAILY #30 tab 11/01/22 12/02/22 Rx Allergies Allergy/AdvReac Type Severity Reaction Status Date / Time ciprofloxacin [From Cipro] Allergy Anaphylaxis Verified 12/02/22 06:29 Penicillins Allergy Swelling/Hi Verified 12/02/22 06:29 ves vancomycin Allergy Dyspnea Verified 12/02/22 06:29 ketorolac tromethamine AdvReac Itching Verified 12/02/22 06:29 [From Toradol] NSAIDS (Non-Steroidal AdvReac STOMACH Verified 12/02/22 06:29 Anti-Inflamma ULCER Physical Exam Osteopathic Statement: *. No significant issues noted on an osteopathic structural exam other than those noted in the History and Physical/Consult. Vitals: Vital Signs Temp Pulse Pulse Resp BP BP Pulse Ox 12/02/22 14:15 58 L 18 98 12/02/22 14:00 60 18 140/87 98 12/02/22 13:45 65 18 98 12/02/22 13:30 63 18 98 12/02/22 13:15 65 18 99 12/02/22 13:00 77 14 100 12/02/22 12:45 76 14 100 12/02/22 12:30 79 14 100 12/02/22 12:25 79 14 100 12/02/22 12:20 77 14 100 12/02/22 12:15 78 14 100 12/02/22 12:10 77 14 100 12/02/22 12:05 75 14 175/73 100 12/02/22 12:00 73 14 100 12/02/22 11:55 69 14 100 12/02/22 11:50 70 14 99 12/02/22 11:45 71 14 99 12/02/22 11:40 71 10 L 100 12/02/22 11:35 69 10 L 100 12/02/22 11:30 97.4 F L 67 10 L 100 12/02/22 11:08 12/02/22 11:01 12/02/22 07:23 56 L 16 117/60 95 12/02/22 07:11 97.6 F 61 20 127/66 96 FiO2 12/02/22 14:15 12/02/22 14:00 12/02/22 13:45 12/02/22 13:30 12/02/22 13:15 12/02/22 13:00 12/02/22 12:45 12/02/22 12:30 12/02/22 12:25 12/02/22 12:20 12/02/22 12:15 12/02/22 12:10 12/02/22 12:05 12/02/22 12:00 50 12/02/22 11:55 12/02/22 11:50 12/02/22 11:45 12/02/22 11:40 12/02/22 11:35 12/02/22 11:30 100 12/02/22 11:08 100 12/02/22 11:01 100 12/02/22 07:23 12/02/22 07:11 Intake and Output 12/01/22 12/02/22 12/02/22 22:59 06:59 14:59 Intake Total 4077.479 Output Total 2325 Balance 1752.479 Intake: IV 4052 LR 200 Intake, IV Titration 25.479 Amount propofoL 1,000 mg In 25.479 Empty Bag 1 bag @ 15 MCG/ KG/MIN 7.002 mls/hr IV . [id number] [facility] Rx#:[id number] Output: Urine 2125 Estimated Blood Loss 200 Other: Voiding Method Indwelling Catheter Weight 77.8 kg 77.8 kg ABP, PAP, CO, CI - Last 8 Hours Arterial Blood Pressure 146/67 Arterial Blood Pressure 147/68 Arterial Blood Pressure 157/72 Arterial Blood Pressure 143/71 Arterial Blood Pressure 135/66 Arterial Blood Pressure 150/73 Arterial Blood Pressure 139/69 Arterial Blood Pressure 149/73 Arterial Blood Pressure 149/73 Arterial Blood Pressure 146/72 Arterial Blood Pressure 154/75 Arterial Blood Pressure 168/80 Arterial Blood Pressure 192/90 Arterial Blood Pressure 185/88 Arterial Blood Pressure 162/78 Arterial Blood Pressure 136/67 Arterial Blood Pressure 124/60 Arterial Blood Pressure 136/65 Arterial Blood Pressure 148/70 Arterial Blood Pressure 170/81 Results CBC & Chem 7: 12/02/22 11:55 12/02/22 11:50 Labs: Abnormal Lab Results - Last 24 Hours (Table) 12/02/22 12/02/22 12/02/22 Range/Units 11:03 11:31 11:50 RBC (3.80-5.40) m/uL Plt Count (150-450) k/uL Lymphocytes # (1.0-4.8) k/uL ABG pH 7.32 L (7.35-7.45) ABG pCO2 46 H (35-45) mmHg ABG pO2 >400 H (83-108) mmHg ABG Total CO2 25 H (19-24) mmol/L ABG O2 Saturation 100.0 H (94-97) % Glucose 202 H (74-99) mg/dL POC Glucose (mg/dL) 193 H (70-110) mg/dL AST 390 H (14-36) U/L ALT 141 H (4-34) U/L Total Protein 5.6 L (6.3-8.2) g/dL 12/02/22 Range/Units 11:55 RBC 3.74 L (3.80-5.40) m/uL Plt Count 148 L (150-450) k/uL Lymphocytes # 0.6 L (1.0-4.8) k/uL ABG pH (7.35-7.45) ABG pCO2 (35-45) mmHg ABG pO2 (83-108) mmHg ABG Total CO2 (19-24) mmol/L ABG O2 Saturation (94-97) % Glucose (74-99) mg/dL POC Glucose (mg/dL) (70-110) mg/dL AST (14-36) U/L ALT (4-34) U/L Total Protein (6.3-8.2) g/dL
[2022-12-02 15:58] LABS: Magnesium 1.8 mg/dL (1.6-2.3)
[2022-12-02] MEDS: PREGABALIN 75 MG CAP PO SCH ×2 (16:03→23:10)
[2022-12-02] MEDS: HEPARIN SODIUM,PORCINE/PF 5,000 UNIT/0.5 ML SYRINGE SQ SCH ×2 (16:03→23:10)
[2022-12-02 17:36] LABS: T4, Free (Free Thyroxine) 1.02 ng/dL (0.78-2.19)
[2022-12-02 18:03] LABS: Glucose,Whole Blood 140 mg/dL (70-110)
[2022-12-02] MEDS ORDERED: Magnesium Replacement Protocol 1 EACH MISC MISCELLANE PRN (18:20)
[2022-12-02] MEDS ORDERED: Potassium Replacement Protocol 1 EACH MISC MISCELLANE PRN (18:21)
[2022-12-02] MEDS ORDERED: MAGNESIUM SULFATE-D5W PMX 1 GM in DEXTROSE/WATER 1 100ML.BAG IVPB ONE (18:30)
[2022-12-02] MEDS ORDERED: POTASSIUM BICARBONATE/CIT AC 20 MEQ TABLET.EFF NG-TUBE SCH (19:00)
[2022-12-02] MEDS: HYDROmorphone 1 MG/ML 1 ML SYRINGE IM PRN ×2 (19:32→23:21)
[2022-12-02] MEDS: ALBUTEROL NEBULIZED 2.5 MG/3 ML INHALATION PRN ×2 (19:53→23:37)
[2022-12-02] MEDS: IPRATROPIUM 0.5 MG/2.5 ML NEBU INHALATION PRN ×2 (19:56→23:37)
[2022-12-02] MEDS ORDERED: CISATRACURIUM 2 MG/ML 5 ML VIAL IV ONE (20:42)
[2022-12-02] MEDS ORDERED: CISATRACURIUM 200 MG in SODIUM CHLORIDE 0.9% 180 ML IV SCH (21:00)
[2022-12-02] MEDS: CHLORHEXIDINE GLUCONATE 15 ML CUP MUCOUS MEM SCH (21:10)
[2022-12-02 22:58] LABS: Glucose,Whole Blood 99 mg/dL (70-110)
[2022-12-03] MEDS: HYDROmorphone 0.5 MG/0.5 ML SYRINGE IVP PRN ×2 (04:31→23:51)
[2022-12-03 04:38] LABS: Basophils % (A) 0 %; Eosinophils # (A) 0.1 k/uL (0-0.7); Eosinophils % (A) 1 %; HCT 36.5 % (34.0-46.0); HGB 12.7 gm/dL (11.4-16.0); Lymphocytes # (A) 1.4 k/uL (1.0-4.8); Lymphocytes % (A) 13 %; MCH 34.3 pg (25.0-35.0); MCHC 34.7 g/dL (31.0-37.0); MCV 98.7 fL (80.0-100.0); Mean Platelet Volume 7.8; Monocytes # (A) 0.5 k/uL (0-1.0); Monocytes % (A) 5 %; Neutrophils # (A) 8.6 k/uL (1.3-7.7); Neutrophils % (A) 80 %; Platelet Count 175 k/uL (150-450); RDW 12.7 % (11.5-15.5); WBC 10.7 k/uL (3.8-10.6)
[2022-12-03 04:52] LABS: ALT 145 U/L (4-34); AST 204 U/L (14-36); African American GFR (CKD) >90 (>60 ml/min/1.73 sqM); Albumin 3.4 g/dL (3.5-5.0); Alkaline Phosphatase 75 U/L (38-126); Anion Gap 7 mmol/L; Blood Urea Nitrogen 11 mg/dL (7-17); Calcium 8.3 mg/dL (8.4-10.2); Carbon Dioxide 28 mmol/L (22-30); Chloride 101 mmol/L (98-107); Glucose 111 mg/dL (74-99); Magnesium 2.1 mg/dL (1.6-2.3); Non-African American GFR(CKD) >90 (>60 ml/min/1.73 sqM); Potassium 4.1 mmol/L (3.5-5.1); Sodium 136 mmol/L (137-145); Total Bilirubin 0.8 mg/dL (0.2-1.3); Total Protein 5.5 g/dL (6.3-8.2)
[2022-12-03 05:39] LABS: ABG Base Excess 5.3 mmol/L; ABG HCO3 29 mmol/L (21-25); ABG Oxygen Saturation 97.8 % (94-97); ABG PCO2 39 mmHg (35-45); ABG PH 7.48 (7.35-7.45); ABG PO2 106 mmHg (83-108); ABG TCO2 30 mmol/L (19-24); Allen Test Performed? Yes
--- NOTE | 2022-12-03 07:56 | P.PN ---
Subjective Progress Note Date: 12/03/22 Principal diagnosis: 1. s/p L4-S1 decompression and fusion 2. Adjacent segment disease L3-L4 3. 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 Bilateral lower extremity radiculopathy 5. L3-Pelvis spondylosis, spondylolisthesis and stenosis Patient seen and examined this morning. Patient remains under sedation, mechanically ventilated. RN reports that there were no events overnight, patient is currently off Levophed. Vital signs are stable. RN states that patient may be extubated this morning. Surgical dressing is clean dry and intact, with Hemovac present, currently compressed. Bullard catheter is patent with adequate output. NG tube is present with bile-colored gastric output. Patient remains afebrile. We will continue to monitor and reassess patient this afternoon. Objective - Vital Signs Vital signs: Vital Signs Temp 98.8 F 12/03/22 04:00 Pulse 68 12/03/22 07:00 Resp 18 12/03/22 07:00 BP 120/55 12/03/22 07:00 Pulse Ox 96 12/03/22 07:00 FiO2 40 12/03/22 04:00 Intake & Output 12/02/22 12/03/22 12/03/22 18:59 06:59 18:59 Intake Total 4581.457 1078.088 Output Total 3345 860 Balance 1236.457 218.088 Weight 77.8 kg 83.7 kg Intake: IV 4402 636 LR 450 600 Magnesium Sulfate-D5w Pmx 100 1 gm In Dextrose/Water 1 100ml.bag @ 100 mls/hr IVPB ONCE ONE Rx#: [id number] Pressure bag 36 Intake, IV Titration 179.457 442.088 Amount Cisatracurium 200 mg In 58.35 Sodium Chloride 0.9% 180 ml @ 2 MCG/KG/MIN 9.336 mls/hr IV .[id number] [facility] Rx #:[id number] Norepinephrine 4 mg In 24.752 36.852 Sodium Chloride 0.9% 250 ml @ 0.03 MCG/KG/MIN 8. 893 mls/hr IV .Q24H [facility] Rx#:[id number] propofoL 1,000 mg In 154.705 346.886 Empty Bag 1 bag @ 15 MCG/ KG/MIN 7.002 mls/hr IV . [id number] [facility] Rx#:[id number] Output: Drainage 160 Back 160 Urine 2985 860 Estimated Blood Loss 200 Other: Voiding Method Indwelling Catheter Indwelling Catheter ABP, PAP, CO, CI - Last Documented Arterial Blood Pressure 109/53 - Exam Physical Examination General: The patient is currently under sedation with mechanical ventilation. Skin: Skin is warm and dry with no obvious rashes or lesions. Hairy patches absent, no dorsal skin dimples, no cafe au lait spots. Surgical incision to the lumbar region. Hemovac present. Dressing is CDI. Cardiovascular: There is a regular rate and rhythm. No murmur, rub or gallop is appreciated. Respiratory: Lungs are clear to auscultation, respirations are non-labored, breath sounds are equal. Gastrointestinal: Soft, non-distended abdomen. Musculoskeletal: NELLIE - Labs CBC & Chem 7: 12/03/22 04:15 12/03/22 04:15 Labs: Abnormal Lab Results - Last 24 Hours (Table) 12/02/22 12/02/22 12/02/22 Range/Units 11:03 11:31 11:50 WBC (3.8-10.6) k/uL RBC (3.80-5.40) m/uL Plt Count (150-450) k/uL Neutrophils # (1.3-7.7) k/uL Lymphocytes # (1.0-4.8) k/uL ABG pH 7.32 L (7.35-7.45) ABG pCO2 46 H (35-45) mmHg ABG pO2 >400 H (83-108) mmHg ABG HCO3 (21-25) mmol/L ABG Total CO2 25 H (19-24) mmol/L ABG O2 Saturation 100.0 H (94-97) % Sodium (137-145) mmol/L Glucose 202 H (74-99) mg/dL POC Glucose (mg/dL) 193 H (70-110) mg/dL Calcium (8.4-10.2) mg/dL AST 390 H (14-36) U/L ALT 141 H (4-34) U/L Troponin I (0.000-0.034) ng/mL Total Protein 5.6 L (6.3-8.2) g/dL Albumin (3.5-5.0) g/dL TSH (0.465-4.680) mIU/L 12/02/22 12/02/22 12/02/22 Range/Units 11:50 11:55 15:16 WBC (3.8-10.6) k/uL RBC 3.74 L (3.80-5.40) m/uL Plt Count 148 L (150-450) k/uL Neutrophils # (1.3-7.7) k/uL Lymphocytes # 0.6 L (1.0-4.8) k/uL ABG pH (7.35-7.45) ABG pCO2 (35-45) mmHg ABG pO2 (83-108) mmHg ABG HCO3 (21-25) mmol/L ABG Total CO2 (19-24) mmol/L ABG O2 Saturation (94-97) % Sodium (137-145) mmol/L Glucose (74-99) mg/dL POC Glucose (mg/dL) (70-110) mg/dL Calcium (8.4-10.2) mg/dL AST (14-36) U/L ALT (4-34) U/L Troponin I 0.113 H* (0.000-0.034) ng/mL Total Protein (6.3-8.2) g/dL Albumin (3.5-5.0) g/dL TSH 0.019 L (0.465-4.680) mIU/L 12/02/22 12/03/22 12/03/22 Range/Units 18:02 04:15 04:15 WBC 10.7 H (3.8-10.6) k/uL RBC 3.70 L (3.80-5.40) m/uL Plt Count (150-450) k/uL Neutrophils # 8.6 H (1.3-7.7) k/uL Lymphocytes # (1.0-4.8) k/uL ABG pH (7.35-7.45) ABG pCO2 (35-45) mmHg ABG pO2 (83-108) mmHg ABG HCO3 (21-25) mmol/L ABG Total CO2 (19-24) mmol/L ABG O2 Saturation (94-97) % Sodium 136 L (137-145) mmol/L Glucose 111 H (74-99) mg/dL POC Glucose (mg/dL) 140 H (70-110) mg/dL Calcium 8.3 L (8.4-10.2) mg/dL AST 204 H (14-36) U/L ALT 145 H (4-34) U/L Troponin I (0.000-0.034) ng/mL Total Protein 5.5 L (6.3-8.2) g/dL Albumin 3.4 L (3.5-5.0) g/dL TSH (0.465-4.680) mIU/L 12/03/22 Range/Units 05:38 WBC (3.8-10.6) k/uL RBC (3.80-5.40) m/uL Plt Count (150-450) k/uL Neutrophils # (1.3-7.7) k/uL Lymphocytes # (1.0-4.8) k/uL ABG pH 7.48 H (7.35-7.45) ABG pCO2 (35-45) mmHg ABG pO2 (83-108) mmHg ABG HCO3 29 H (21-25) mmol/L ABG Total CO2 30 H (19-24) mmol/L ABG O2 Saturation 97.8 H (94-97) % Sodium (137-145) mmol/L Glucose (74-99) mg/dL POC Glucose (mg/dL) (70-110) mg/dL Calcium (8.4-10.2) mg/dL AST (14-36) U/L ALT (4-34) U/L Troponin I (0.000-0.034) ng/mL Total Protein (6.3-8.2) g/dL Albumin (3.5-5.0) g/dL TSH (0.465-4.680) mIU/L Assessment and Plan Assessment: Post op Day 1: Revision posteriolateral fusion L3-S1 with Removal of hardware L4-S1 Surgical Intervention was crash closed due to Ventricular fibrillation arrest 1. s/p L4-S1 decompression and fusion 2. Adjacent segment disease L3-L4 3. Pseudoarthrosis L4-S1 4.Bilateral lower extremity radiculopathy 5. L3-Pelvis spondylosis, spondylolisthesis and stenosis Plan: Plan: -Appreciate strategic solutions consultant and team management. -Possible exubation this morning per pulmonary. -Activity: Continue to turn q2 hrs. May sit up in bed when appropriate. -Pain control: Adequate at this time -Meds: reviewed -GI ppx: senna, Miralax -DC bullard when up and about, bedside commode if needed -DVT PPX: OK to restart Heparin tonight -Hygiene: Maintain dressing clean and dry. Meticulous cleaning after BMs away from the incision site -Drains: Maintain for now. DC later today pending out put and PT -Encourage IS 10x/hr when awake -Dispo: Pending *I reviewed and discussed this case with my attending Dr. Nova, whom has reviewed this chart and films and is in agreement with assessment and plan of care as outlined above. I have personally seen and examined the patient, performed the documentation and the assessment and plan as written. Number of minutes spent on the visit: 10m.
[2022-12-03] MEDS: ALBUTEROL NEBULIZED 2.5 MG/3 ML INHALATION PRN (08:09)
[2022-12-03] MEDS: HEPARIN SODIUM,PORCINE/PF 5,000 UNIT/0.5 ML SYRINGE SQ SCH (08:18)
[2022-12-03] MEDS: PANTOPRAZOLE 40 MG/10 ML VIAL IV SCH (08:18)
[2022-12-03] MEDS: CHLORHEXIDINE GLUCONATE 15 ML CUP MUCOUS MEM SCH (08:19)
[2022-12-03] MEDS: PREGABALIN 75 MG CAP PO SCH ×3 (08:19→21:58)
--- NOTE | 2022-12-03 08:43 | XR ---
EXAMINATION TYPE: XR chest 1V portable DATE OF EXAM: 12/03/2022 COMPARISON: NONE HISTORY: Postop TECHNIQUE: Single frontal view of the chest is obtained. FINDINGS: ET tube 3.3 cm above bryan. NG tube appears in good position coursing into left upper ata drant. Postoperative changes overlying the cervical spine. Hypertrophic and degenerative changes spin e. Subsegmental areas of consolidation are noted. No pleural effusion or sizable pneumothorax. Sugges tion of a coronary stent. Surgical dilia overlying the epigastrium. IMPRESSION: Improving patchy left lower lobe infiltrate.
--- NOTE | 2022-12-03 09:37 | P.CRDCN ---
History of Present Illness Consult date: 12/03/22 History of present illness: The patient is a pleasant 62-year-old female patient with a past medical history significant for coronary artery disease with previous stenting of the LAD as well as hypertension and dyslipidemia and history of TIA/CVA the patient sees Dr. Dorantes irregularly was admitted to the hospital to undergo low back surgery. She was admitted to undergo revision to her lumbar vertebrae. We consulted to see the patient for further evaluation of cardiac arrhythmia. Apparently the patient during the surgery she did have an episode of "ventricular tachycardia". The details are unavailable and there is no documentation of the rhythm strip in the computer. That was followed by giving the patient epinephrine. The patient apparently converted to normal sinus mechanism. Again no more details available and no rhythm strip available at this point. The patient after that was brought to the intensive care unit. Currently she is intubated. She underwent a workup including troponin came in to be mildly abnormal with the first set and we are in process of obtaining 2 more sets of serial cardiac enzymes. The EKG showed sinus rhythm with no significant ST or T-wave abnormalities. The patient is known to have CAD with prior stenting of the LAD with the last heart catheterization in 2020 showing patent stent in the LAD with intermediate disease involving the diagonal branch. That was treated medically. The patient also underwent further workup including CBC and BMP and that came in to be unremarkable a TSH also was ordered. Limited echo was performed and we are in process of getting the report at this point. She is in process also to be extubated later on today. Currently she is hemodynamically stable and not on any vasopressors. This point I would continue the current medical regimen. Consider putting the patient on dual antiplatelet therapies is okay from the surgical standpoint of view. Consider putting the patient on beta danish. Follow-up on the echo. Examination is remarkable for regular rhythm with systolic murmur and diminished breathing sounds bilaterally and no lower extremities edema noted Assessment An episode of "ventricular tachycardia" Status post back surgery Evidence of myocardial injury CAD with prior stenting Hypertension Dyslipidemia History of CVA Plan Rule out acute coronary event. Follow-up on the serial cardiac enzymes Follow-up and the echocardiogram Consider dual antiplatelet therapy as well as beta danish as well as a statin Further recommendation to follow Past Medical History Past Medical History: Coronary Artery Disease (CAD), Chest Pain / Angina, Fibromyalgia, Hyperlipidemia, Hypertension, Myocardial Infarction ([place]), Osteoarthritis (OA), Thyroid Disorder Additional Past Medical History / Comment(s): interstitial cystitis; constipation, gallstones, LUMBAR BACK PAIN Last Myocardial Infarction Date:: 2013 History of Any Multi-Drug Resistant Organisms: None Reported Past Surgical History: Back Surgery, Bladder Surgery, Breast Surgery, Cholecystectomy, Heart Catheterization With Stent, Hysterectomy, Orthopedic Surgery Additional Past Surgical History / Comment(s): bladder stimulator, neck surgery, total 6 cardiac stents - back fusion, neck fusion, jeff bunionectomy, revision of back surgery screws, cage and rods were suppose to be placed but DR Nova doesn't see them on imaging. Past Anesthesia/Blood Transfusion Reactions: No Reported Reaction Date of Last Stent Placement:: approx 3 yrs ago Smoking Status: Former smoker - Past Family History Father Family Medical History: Cancer Medications and Allergies Home Medications Medication Instructions Recorded Confirmed Type Metoprolol Succinate (ER) [Toprol 25 mg PO HS 07/10/21 12/02/22 History XL] Pregabalin [Lyrica] 150 mg PO TID 07/18/21 12/02/22 History Clopidogrel Bisulfate [Plavix] 75 mg PO DAILY 01/22/22 12/02/22 History Levothyroxine Sodium [Synthroid] 125 mcg PO DAILY 06/18/22 12/02/22 History QUEtiapine [SEROquel] 400 mg PO HS 30 Days tab 06/19/22 12/02/22 Rx Cyclobenzaprine [Flexeril] 10 mg PO HS 09/23/22 12/02/22 History Amitriptyline HCl [Elavil] 25 mg PO HS 10/30/22 12/02/22 History DULoxetine HCL [Cymbalta] 120 mg PO HS 10/30/22 12/02/22 History Oxybutynin Chloride [Oxybutynin 10 mg PO HS 10/30/22 12/02/22 History Chloride ER] Aspirin 81 mg PO DAILY #30 tab 11/01/22 12/02/22 Rx Atorvastatin [Lipitor] 40 mg PO DAILY #30 tab 11/01/22 12/02/22 Rx Allergies Allergy/AdvReac Type Severity Reaction Status Date / Time ciprofloxacin [From Cipro] Allergy Anaphylaxis Verified 12/02/22 06:29 Penicillins Allergy Swelling/Hi Verified 12/02/22 06:29 ves vancomycin Allergy Dyspnea Verified 12/02/22 06:29 ketorolac tromethamine AdvReac Itching Verified 12/02/22 06:29 [From Toradol] NSAIDS (Non-Steroidal AdvReac STOMACH Verified 12/02/22 06:29 Anti-Inflamma ULCER Physical Exam Vitals: Vital Signs Temp Pulse Resp BP Pulse Ox FiO2 12/03/22 09:28 40 12/03/22 08:19 83 12/03/22 08:10 72 12/03/22 07:44 40 12/03/22 07:00 68 18 120/55 96 12/03/22 06:45 70 18 96 12/03/22 06:30 68 18 96 12/03/22 06:15 68 18 96 12/03/22 06:00 67 18 96 12/03/22 05:45 68 18 96 12/03/22 05:30 69 18 97 12/03/22 05:15 75 18 96 12/03/22 05:00 67 18 133/74 96 12/03/22 04:45 66 18 96 12/03/22 04:30 64 18 97 12/03/22 04:15 65 18 97 12/03/22 04:00 98.8 F 71 18 141/72 97 40 12/03/22 03:45 68 18 97 12/03/22 03:30 67 18 97 12/03/22 03:15 66 18 97 12/03/22 03:00 67 18 97 12/03/22 02:45 68 18 97 12/03/22 02:30 67 18 97 12/03/22 02:15 67 18 97 12/03/22 02:00 68 18 97 12/03/22 01:45 69 18 97 12/03/22 01:30 68 18 97 12/03/22 01:15 67 18 97 12/03/22 01:00 67 18 97 12/03/22 00:45 67 18 96 12/03/22 00:30 63 18 97 12/03/22 00:15 70 18 98 12/03/22 00:00 98.7 F 81 18 98 40 12/02/22 23:50 81 12/02/22 23:45 84 18 98 12/02/22 23:37 80 12/02/22 23:30 75 18 97 12/02/22 23:26 75 18 97 02/28/23 23:15 79 18 97 12/02/22 23:00 77 18 97 40 12/02/22 22:45 80 18 97 12/02/22 22:30 80 18 97 12/02/22 22:15 76 18 96 12/02/22 22:00 74 18 96 12/02/22 21:45 66 18 96 12/02/22 21:30 67 18 96 12/02/22 21:15 65 18 96 12/02/22 21:00 73 18 97 12/02/22 20:45 74 18 97 12/02/22 20:30 79 18 97 12/02/22 20:15 75 29 H 97 12/02/22 20:04 67 12/02/22 20:00 99.6 F 70 22 141/75 96 40 12/02/22 19:53 67 12/02/22 19:45 64 18 96 12/02/22 19:30 68 18 97 12/02/22 19:15 66 18 97 12/02/22 19:00 64 18 139/67 96 12/02/22 18:45 66 18 97 12/02/22 18:30 64 18 97 12/02/22 18:15 63 18 97 12/02/22 18:00 63 18 154/78 97 12/02/22 17:45 65 18 97 12/02/22 17:30 58 L 18 97 12/02/22 17:15 57 L 18 97 12/02/22 17:00 60 18 149/75 97 12/02/22 16:45 54 L 18 97 12/02/22 16:30 54 L 18 97 12/02/22 16:15 55 L 18 98 12/02/22 16:00 96.8 F L 55 L 18 126/66 98 40 12/02/22 15:45 55 L 18 98 12/02/22 15:30 58 L 18 96 12/02/22 15:15 61 18 96 12/02/22 15:00 61 18 144/71 98 40 12/02/22 14:45 62 18 98 12/02/22 14:30 63 18 98 12/02/22 14:15 58 L 18 98 12/02/22 14:00 60 18 140/87 98 12/02/22 13:45 65 18 98 12/02/22 13:30 63 18 98 12/02/22 13:15 65 18 99 02/28/23 13:00 77 14 100 12/02/22 12:45 76 14 100 12/02/22 12:30 79 14 100 12/02/22 12:25 79 14 100 12/02/22 12:20 77 14 100 12/02/22 12:15 78 14 100 12/02/22 12:10 77 14 100 12/02/22 12:05 75 14 175/73 100 12/02/22 12:00 73 14 100 50 12/02/22 11:55 69 14 100 12/02/22 11:50 70 14 99 12/02/22 11:45 71 14 99 12/02/22 11:40 71 10 L 100 12/02/22 11:35 69 10 L 100 12/02/22 11:30 97.4 F L 67 10 L 100 100 12/02/22 11:08 100 12/02/22 11:01 100 Intake and Output 12/02/22 12/03/22 12/03/22 22:59 06:59 14:59 Intake Total 702.784 824.577 63.485 Output Total 1340 540 Balance -637.216 284.577 63.485 Intake: IV 500 486 LR 400 450 Magnesium Sulfate-D5w Pmx 100 1 gm In Dextrose/Water 1 100ml.bag @ 100 mls/hr IVPB ONCE ONE Rx#: [id number] Pressure bag 36 Intake, IV Titration 202.784 338.577 63.485 Amount Cisatracurium 200 mg In 58.35 Sodium Chloride 0.9% 180 ml @ 2 MCG/KG/MIN 9.336 mls/hr IV .[id number] [facility] Rx #:[id number] Norepinephrine 4 mg In 24.7 12.152 Sodium Chloride 0.9% 250 ml @ 0.03 MCG/KG/MIN 8. 893 mls/hr IV .Q24H [facility] Rx#:[id number] propofoL 1,000 mg In 178.084 268.075 63.485 Empty Bag 1 bag @ 15 MCG/ KG/MIN 7.002 mls/hr IV . [id number] [facility] Rx#:[id number] Output: Drainage 160 Back 160 Urine 1180 540 Other: Voiding Method Indwelling Catheter Indwelling Catheter Weight 83.7 kg ABP, PAP, CO, CI - Last 8 Hours Arterial Blood Pressure 109/53 Arterial Blood Pressure 113/55 Arterial Blood Pressure 114/55 Arterial Blood Pressure 111/49 Arterial Blood Pressure 120/54 Arterial Blood Pressure 121/54 Arterial Blood Pressure 136/59 Arterial Blood Pressure 138/60 Arterial Blood Pressure 127/57 Arterial Blood Pressure 126/56 Arterial Blood Pressure 133/58 Arterial Blood Pressure 132/59 Arterial Blood Pressure 136/61 Arterial Blood Pressure 135/61 Arterial Blood Pressure 133/59 Arterial Blood Pressure 135/61 Arterial Blood Pressure 139/63 Arterial Blood Pressure 137/62 Arterial Blood Pressure 142/64 Arterial Blood Pressure 146/65 Arterial Blood Pressure 146/66 Arterial Blood Pressure 142/65 Results 12/03/22 04:15 12/03/22 04:15 Cardiac Enzymes 12/02/22 12/02/22 12/03/22 Range/Units 11:50 11:50 04:15 AST 390 H 204 H (14-36) U/L Troponin I 0.113 H* (0.000-0.034) ng/mL CBC 12/02/22 12/03/22 Range/Units 11:55 04:15 WBC 7.6 10.7 H (3.8-10.6) k/uL RBC 3.74 L 3.70 L (3.80-5.40) m/uL Hgb 12.4 12.7 (11.4-16.0) gm/dL Hct 37.2 36.5 (34.0-46.0) % Plt Count 148 L 175 (150-450) k/uL Comprehensive Metabolic Panel 12/02/22 12/03/22 Range/Units 11:50 04:15 Sodium 138 136 L (137-145) mmol/L Potassium 3.8 4.1 (3.5-5.1) mmol/L Chloride 104 101 (98-107) mmol/L Carbon Dioxide 22 28 (22-30) mmol/L BUN 11 11 (7-17) mg/dL Creatinine 0.61 0.62 (0.52-1.04) mg/dL Glucose 202 H 111 H (74-99) mg/dL Calcium 8.9 8.3 L (8.4-10.2) mg/dL AST 390 H 204 H (14-36) U/L ALT 141 H 145 H (4-34) U/L Alkaline Phosphatase 79 75 (38-126) U/L Total Protein 5.6 L 5.5 L (6.3-8.2) g/dL Albumin 3.7 3.4 L (3.5-5.0) g/dL Current Medications Generic Name Dose Route Start Last Admin Trade Name Freq PRN Reason Stop Dose Admin Hydrocodone Bitart/Acetaminophen 1 each 12/02/22 12:31 Hydrocodone/Apap 7.5-325mg 1 Each Tab PO Q6HR PRN MILD PAIN (1-3) Hydrocodone Bitart/Acetaminophen 2 each 12/02/22 12:31 Hydrocodone/Apap 7.5-325mg 1 Each Tab PO Q6HR PRN MODERATE PAIN (4-6) Albuterol Sulfate 2.5 mg 12/02/22 11:13 12/03/22 08:09 Albuterol Nebulized 2.5 Mg/3 Ml INHALATION 2.5 mg RT-Q2H PRN Administration Shortness Of Breath Or Wheezing Chlorhexidine Gluconate 15 ml 12/02/22 21:00 12/03/22 08:19 Chlorhexidine Gluconate 15 Ml Cup MUCOUS MEM 15 ml BID [facility] Administration Cyclobenzaprine HCl 10 mg 12/02/22 12:31 Cyclobenzaprine 10 Mg Tab PO BID PRN Muscle Spasm Heparin Sodium (Porcine) 5,000 unit 12/02/22 16:00 12/03/22 08:18 Heparin Sodium,Porcine/Pf 5,000 Unit/0.5 Ml Syringe SQ 5,000 unit Q8HR [facility] Administration Hydromorphone HCl 0.5 mg 12/02/22 12:31 12/03/22 04:31 Hydromorphone 0.5 Mg/0.5 Ml Syringe IVP 0.5 mg Q3HR PRN Administration MODERATE PAIN WHEN NPO Hydromorphone HCl 1 mg 12/02/22 12:31 12/02/22 23:21 Hydromorphone 1 Mg/Ml 1 Ml Syringe IM 1 mg Q3HR PRN Administration SEVERE PAIN (7-10) Lactated Ringer's 1,000 mls @ 20 mls/hr 12/02/22 06:28 12/02/22 07:30 Lactated Ringers IV 50 mls .Q24H [facility] Administration Propofol 1,000 mg/ IV Solution 100 mls @ 7.002 mls/hr 12/02/22 11:15 12/03/22 08:33 IV 60 mcg/kg/min .[id number] [facility] 28.008 mls/hr Administration Protocol 15 MCG/KG/MIN Norepinephrine Bitartrate 4 mg 254 mls @ 8.893 mls/hr 12/02/22 11:30 12/02/22 23:10 / Sodium Chloride IV 0 mcg/kg/min .Q24H [facility] 0 mls/hr Titration Protocol 0.03 MCG/KG/MIN Cisatracurium Besylate 200 mg/ 200 mls @ 9.336 mls/hr 12/02/22 21:00 12/03/22 03:25 Sodium Chloride IV 1 mcg/kg/min .[id number] [facility] 4.668 mls/hr Titration Protocol 2 MCG/KG/MIN Ipratropium [place] 0.5 mg 12/02/22 11:13 12/02/22 23:37 Ipratropium 0.5 Mg/2.5 Ml Nebu INHALATION 0.5 mg RT-Q2H PRN Administration Shortness Of Breath Or Wheezing Lidocaine HCl 0.1 ml 12/02/22 06:28 Lidocaine 1% (10mg/Ml) For Iv Start INTRADERMA PER PROTOCOL PRN IV Start Miscellaneous Information 1 each 12/02/22 18:20 Magnesium Replacement Protocol 1 Each Misc MISCELLANE DAILY PRN Per Protocol Protocol Miscellaneous Information 1 each 12/02/22 18:21 Potassium Replacement Protocol 1 Each Misc MISCELLANE DAILY PRN Per Protocol Protocol Naloxone HCl 0.2 mg 12/02/22 13:45 Naloxone 0.4 Mg/Ml 1 Ml Vial IV Q2M PRN Opioid Reversal Pantoprazole Sodium 40 mg 12/03/22 09:00 12/03/22 08:18 Pantoprazole 40 Mg/10 Ml Vial IV 40 mg DAILY [facility] Administration Pregabalin 150 mg 12/02/22 16:00 12/03/22 08:19 Pregabalin 75 Mg Cap PO 150 mg TID [facility] Administration Intake and Output 12/02/22 12/03/22 12/03/22 22:59 06:59 14:59 Intake Total 702.784 824.577 63.485 Output Total 1340 540 Balance -637.216 284.577 63.485 Intake: IV 500 486 LR 400 450 Magnesium Sulfate-D5w Pmx 100 1 gm In Dextrose/Water 1 100ml.bag @ 100 mls/hr IVPB ONCE ONE Rx#: [id number] Pressure bag 36 Intake, IV Titration 202.784 338.577 63.485 Amount Cisatracurium 200 mg In 58.35 Sodium Chloride 0.9% 180 ml @ 2 MCG/KG/MIN 9.336 mls/hr IV .[id number] [facility] Rx #:[id number] Norepinephrine 4 mg In 24.7 12.152 Sodium Chloride 0.9% 250 ml @ 0.03 MCG/KG/MIN 8. 893 mls/hr IV .Q24H [facility] Rx#:[id number] propofoL 1,000 mg In 178.084 268.075 63.485 Empty Bag 1 bag @ 15 MCG/ KG/MIN 7.002 mls/hr IV . [id number] [facility] Rx#:[id number] Output: Drainage 160 Back 160 Urine 1180 540 Other: Voiding Method Indwelling Catheter Indwelling Catheter Weight 83.7 kg 12/03/22 04:15 12/03/22 04:15
[2022-12-03] MEDS: HYDROmorphone 1 MG/ML 1 ML SYRINGE IM PRN ×3 (09:44→16:50)
--- NOTE | 2022-12-03 09:50 | CA ---
Transthoracic Echo Report Name: Adeline Christiansen Age: 62 Gender: F : 1960 Exam Date: 12/02/2022 14:58 Exam Location: [facility] Ht (in): 61 Wt (lb): 171 Ordering Physician: Eloina Davidson DO Attending/Referring Phys: Share Holder Sparkle Maravilla RDCS Procedure CPT: Indications: Cardiac Arrest Cardiac Hx: Technical Quality: Fair Contrast 1: Total Dose (mL): Contrast 2: Total Dose (mL): MEASUREMENTS (Male / Female) Normal Values 2D ECHO LV Diastolic Diameter PLAX 4.9 cm 4.2 - 5.9 / 3.9 - 5.3 cm LV Systolic Diameter PLAX 3.0 cm IVS Diastolic Thickness 1.2 cm 0.6 - 1.0 / 0.6 - 0.9 cm LVPW Diastolic Thickness 1.1 cm 0.6 - 1.0 / 0.6 - 0.9 cm LV Relative Wall Thickness 0.5 FINDINGS Left Ventricle Left ventricular cavity size normal. Mildly increased left ventricular wall thickness. No obvious regional wall motion abnormalities. Left ventricular ejection fraction is estimated at 50-55 %. Right Ventricle Right Atrium Left Atrium Mitral Valve Aortic Valve Tricuspid Valve Pulmonic Valve Pericardium No pericardial effusion. Aorta CONCLUSIONS Normal LV size and preserved systolic function. Mild concentric LVH. No pericardial effusion ejection fraction is probably 55% Previewed by: Dr. Bjorn Dorantes MD (Electronically Signed) Final Date: 03 December 2022 09:49
--- NOTE | 2022-12-03 11:33 | P.PN ---
Subjective Progress Note Date: 12/03/22 Principal diagnosis: Respiratory failure. Pulmonary consult dated 12/02/2022. 62-year-old female who apparently initially presented to orthopedics, with back pain. The patient has a history of lumbar fusion 1999 with revision, and 2005. The patient was scheduled to have a L4-S1 decompression and fusion, and that procedure was scheduled for 12/02/2022. During the procedure, the patient had issues with low blood pressure, and ventricular fibrillation, and on 2 occasions, he did significant resuscitation. This included fluids, epinephrine, norepinephrine, etc. I was called by the anesthesiologist, Dr. French, and a bed was provided the patient in the intensive care unit. In addition to low back pain, chronic, the patient has a history of hypertension, urinary incontinence, hyperlipidemia, hypothyroidism, among other things. Currently, the patient's in the intensive care unit. Her ventilator settings include the volume assist control, rate 14, tidal volume 600, FiO2 50%, and PEEP of 5. Blood gases, show pO2 of 400, pCO2 45, and a pH is 7.31. These blood gases are consistent with a mild respiratory acidosis. The blood gases were done on a volume assist control rate of 10, and an FiO2 of 100%. Adjustments included increasing the rate 18, reducing the tidal volume to 450, and drop in the FiO2 down from 100%, to 50%, down to 40%. Currently, the patient's on propofol at 50 mcg/kg/m, norepinephrine at 1 mcg/m, and lactated Ringer's at 50 mL an hour. Cardiology has been consulted. She has 2 peripheral IVs, and an arterial line, placed by anesthesia. Other laboratory data includes a white count of 7.6, hemoglobin 12.4, hematocrit 37.2, and a platelet count of 148,000. Sodium 138, potassium 3.8, chlorides 104, CO2 22, BUN 11, creatinine 0.61. AST was 390, ALT was 141. Post surgical chest x-ray shows the endotracheal tube and NG tube to be in good locations. And there is a patchy infiltrate or atelectasis in the left lower lobe. Unfortunately, the entire procedure, was aborted, and the incision was closed according to the surgeon. Progress note dated 12/03/2022. This is a 62-year-old female who underwent an attempted orthopedic procedure yesterday, but unfortunately, during the case, developed some cardiac instability. The patient was brought back to the intensive care unit, because of hypotension, and ventricular fibrillation. Currently, she remains on the mechanical ventilator, with settings of volume assist control, rate 18, tidal volume 450, FiO2 40%, PEEP of 5. Arterial blood gases show pO2 106, pCO2 39, and a pH is 7.48. The patient is currently on lactated Ringer's at 50 mL an hour, Nimbex at 1 mcg/kg/m, and propofol 60 mcg/kg/m. Today, we will do a daily interruption of sedation, with a spontaneous breathing trial. White count 10.7, hemoglobin 12.7, hematocrit 36.5, and platelet count 275,000. Sodium 136, potassium 4.1, chlorides 101, CO2 28, BUN 11, creatinine 0.62. Chest x-ray looks rather good, with a minimal infiltrate at the left lower lobe. Objective - Vital Signs Vital signs: Vital Signs Temp 98.7 F 12/03/22 08:00 Pulse 86 12/03/22 11:00 Resp 15 12/03/22 11:00 BP 114/59 12/03/22 11:00 Pulse Ox 94 L 12/03/22 11:00 FiO2 40 12/03/22 09:28 Intake & Output 12/02/22 12/03/22 12/03/22 18:59 06:59 18:59 Intake Total 4581.457 1078.088 272.354 Output Total 3345 860 395 Balance 1236.457 218.088 -122.646 Weight 77.8 kg 83.7 kg Intake: IV 4402 636 159 LR 450 600 150 Magnesium Sulfate-D5w Pmx 100 1 gm In Dextrose/Water 1 100ml.bag @ 100 mls/hr IVPB ONCE ONE Rx#: [id number] Pressure bag 36 9 Intake, IV Titration 179.457 442.088 113.354 Amount Cisatracurium 200 mg In 58.35 27.463 Sodium Chloride 0.9% 180 ml @ 2 MCG/KG/MIN 9.336 mls/hr IV .[id number] [facility] Rx #:[id number] Norepinephrine 4 mg In 24.752 36.852 Sodium Chloride 0.9% 250 ml @ 0.03 MCG/KG/MIN 8. 893 mls/hr IV .Q24H [facility] Rx#:[id number] propofoL 1,000 mg In 154.705 346.886 85.891 Empty Bag 1 bag @ 15 MCG/ KG/MIN 7.002 mls/hr IV . [id number] [facility] Rx#:[id number] Output: Drainage 160 Back 160 Urine 2985 860 395 Estimated Blood Loss 200 Other: Voiding Method Indwelling Catheter Indwelling Catheter Indwelling Catheter ABP, PAP, CO, CI - Last Documented Arterial Blood Pressure 121/56 - Exam No acute distress, sedated and paralyzed, with an orally placed endotracheal tube and NG tube. HEENT examination is grossly unremarkable. Neck supple. Full range of motion. No adenopathy thyromegaly or neck vein distention. Cardiovascular examination reveals regular rhythm rate. S1-S2 normal. No S3 or S4. No discernible murmur noted. Heart rate 86 bpm. Heart sounds are distant. Lungs reveal clear breath sounds. Breath sounds are equal bilaterally. No adventitious lung sounds including wheezes rhonchi or crackles. Saturations are 98 %. Abdomen soft without bowel sounds. Extremities are intact. No cyanosis clubbing or edema. Skin is without rash or lesion. Neurologic examination could not be evaluated at this time. - Labs CBC & Chem 7: 12/03/22 04:15 12/03/22 04:15 Labs: Abnormal Lab Results - Last 24 Hours (Table) 12/02/22 12/02/22 12/02/22 Range/Units 11:31 11:50 11:50 WBC (3.8-10.6) k/uL RBC (3.80-5.40) m/uL Plt Count (150-450) k/uL Neutrophils # (1.3-7.7) k/uL Lymphocytes # (1.0-4.8) k/uL ABG pH 7.32 L (7.35-7.45) ABG pCO2 46 H (35-45) mmHg ABG pO2 >400 H (83-108) mmHg ABG HCO3 (21-25) mmol/L ABG Total CO2 25 H (19-24) mmol/L ABG O2 Saturation 100.0 H (94-97) % Sodium (137-145) mmol/L Glucose 202 H (74-99) mg/dL POC Glucose (mg/dL) (70-110) mg/dL Calcium (8.4-10.2) mg/dL AST 390 H (14-36) U/L ALT 141 H (4-34) U/L Troponin I 0.113 H* (0.000-0.034) ng/mL Total Protein 5.6 L (6.3-8.2) g/dL Albumin (3.5-5.0) g/dL TSH (0.465-4.680) mIU/L 12/02/22 12/02/22 12/02/22 Range/Units 11:55 15:16 18:02 WBC (3.8-10.6) k/uL RBC 3.74 L (3.80-5.40) m/uL Plt Count 148 L (150-450) k/uL Neutrophils # (1.3-7.7) k/uL Lymphocytes # 0.6 L (1.0-4.8) k/uL ABG pH (7.35-7.45) ABG pCO2 (35-45) mmHg ABG pO2 (83-108) mmHg ABG HCO3 (21-25) mmol/L ABG Total CO2 (19-24) mmol/L ABG O2 Saturation (94-97) % Sodium (137-145) mmol/L Glucose (74-99) mg/dL POC Glucose (mg/dL) 140 H (70-110) mg/dL Calcium (8.4-10.2) mg/dL AST (14-36) U/L ALT (4-34) U/L Troponin I (0.000-0.034) ng/mL Total Protein (6.3-8.2) g/dL Albumin (3.5-5.0) g/dL TSH 0.019 L (0.465-4.680) mIU/L 12/03/22 12/03/22 12/03/22 Range/Units 04:15 04:15 05:38 WBC 10.7 H (3.8-10.6) k/uL RBC 3.70 L (3.80-5.40) m/uL Plt Count (150-450) k/uL Neutrophils # 8.6 H (1.3-7.7) k/uL Lymphocytes # (1.0-4.8) k/uL ABG pH 7.48 H (7.35-7.45) ABG pCO2 (35-45) mmHg ABG pO2 (83-108) mmHg ABG HCO3 29 H (21-25) mmol/L ABG Total CO2 30 H (19-24) mmol/L ABG O2 Saturation 97.8 H (94-97) % Sodium 136 L (137-145) mmol/L Glucose 111 H (74-99) mg/dL POC Glucose (mg/dL) (70-110) mg/dL Calcium 8.3 L (8.4-10.2) mg/dL AST 204 H (14-36) U/L ALT 145 H (4-34) U/L Troponin I (0.000-0.034) ng/mL Total Protein 5.5 L (6.3-8.2) g/dL Albumin 3.4 L (3.5-5.0) g/dL TSH (0.465-4.680) mIU/L Assessment and Plan Assessment: Postop day #1, attempted, L4-S1 decompression and fusion for chronic back pain. Significant cardiopulmonary instability characterized by ventricular fibrillation, and hypotension, resulting in the premature termination of the procedure. Respiratory failure, requiring admission to the ICU, with an orally placed endotracheal tube, and mechanically ventilated. History of CAD, with previous PCI, and stent placement. History of hyperlipidemia. History of hypertension. History of urinary incontinence. History of hypothyroidism. History of chronic tobacco use. Plan: Plan dated 12/02/2022. The patient was transferred to the intensive care unit. The patient is maintained on the mechanical ventilator. We will keep her on the ventilator overnight. I've asked cardiology to see the patient has a preoperatively. The blood gases show a very mild respiratory acidosis. The tidal volume was reduced from 600 down to 450 mL. The rate was increased from 14 to 18. The FiO2 was eventually dropped to 40%. The patient remains on propofol at 50 mcg/kg/m, lact ated Ringer's at 50 mL an hour, and norepinephrine at 1 mcg/m. Labs, x-rays, and medications are reviewed. Additional recommendations and suggestions are forthcoming. Plan dated 12/03/2022. The patient had an uneventful night. At one point, despite the fact that she was on high doses of propofol, we ended up attempting to paralyzed her with despite being on Nimbex, she was still moving about in the bed. This morning, she will have a interruption of sedation, and a spontaneous breathing trial. Hopefully, we'll be able get the patient extubated. Additional recommendations and suggestions are forthcoming. Yesterday, she was on norepinephrine, but is not on it anymore. Labs, x-rays, and medications are reviewed. We will continue to follow and make recommendations along the way. Time with Patient: Greater than 30
[2022-12-03 11:36] LABS: Glucose,Whole Blood 113 mg/dL (70-110)
[2022-12-03] MEDS: CYCLOBENZAPRINE 10 MG TAB PO PRN (11:47)
[2022-12-03] MEDS: HYDROcodone/APAP 7.5-325MG 1 EACH TAB PO PRN ×2 (11:48→21:58)
[2022-12-03] MEDS ORDERED: CLOPIDOGREL 75 MG TAB PO STA (13:24)
[2022-12-03] MEDS ORDERED: ASPIRIN 81 MG PO STA (13:24)
[2022-12-03] MEDS ORDERED: ATORVASTATIN 80 MG TAB PO STA (13:36)
[2022-12-03] MEDS ORDERED: HEPARIN SODIUM 1,000 UN/ML (10ML VL) IV PRN (13:37)
[2022-12-03] MEDS ORDERED: HEPARIN SODIUM 1,000 UN/ML (10ML VL) IV ONE (13:37)
[2022-12-03] MEDS ORDERED: HEPARIN SOD,PORK IN 0.45% NACL 25,000 UNIT in 0.45% NACL 1 250ML.BAG IV SCH (13:45)
[2022-12-03] MEDS: NOREPINEPHRINE 4 MG in SODIUM CHLORIDE 0.9% 250 ML IV SCH (14:02)
[2022-12-03 14:35] LABS: Partial Thromboplastin Time 27.3 sec (22.0-30.0); Prothrombin Time 10.3 sec (9.0-12.0)
--- NOTE | 2022-12-03 14:39 | P.PN ---
Subjective Progress Note Date: 12/03/22 (delayed charting seen at 0930) Patient is a 62-year-old female with hypertension, dyslipidemia, coronary artery disease status post 6 stents, and fibromyalgia who initially presented for lumbar decompression and fusion L4 to S1. During the procedure the patient had low blood pressure and developed ventricular fibrillation on 2 separate occasions. This required resuscitation with IV fluids, epinephrine, and norepinephrine. She was subsequently admitted to the ICU. We were consulted for hypertensive management. Her procedure was aborted early due to the ventricular fibrillation and she did have a posterior lateral fusion of L3 to S1, removal of hardware L4 to S1. On arrival to the ICU she was requiring norepinephrine and was intubated. Pulmonary and cardiology were consulted. She underwent an echocardiogram which showed a preserved ejection fraction and no wall motion abnormality. Overnight on 12/02 she became agitated and was unable to ventilate due to biting on the tube and required Nimbex. Patient seen and examined at bedside. She was on the vent at the time of my evaluation but was following commands. Case discussed with nurse and events as noted above. Vital signs reviewed General: nontoxic, no distress, appears at stated age Cardiovascular: S1S2 reg, no murmur, positive posterior tibial pulse bilateral, Lungs: CTA bilateral, no rhonchi, no rales , no accessory muscle use Abdominal: soft, nontender to palpation, no guarding, no appreciable organ omegaly Ext: no gross muscle atrophy, no edema, no contractures Psych: sedated on vent, opens every to name, and moving all 4 extremities independently. Assessment: Patient is a 62-year-old female who initially presents presented for revision of her lumbar fusion. Intraoperatively she had a ventricular fibrillation arrest which was aborted quickly. Her spine was stabilized and the remainder of the procedure was aborted. Eleavetd troponin Type I vs Type II NSTEMI Transaminitis, suspect ischemic Leukocytosis, reactive HTN HLD CAD with hx of stents Thrombocytopenia, anticipated outcome, resolved Imaging: Limited Echo with EF 50-55%, mild LVH, no wall motion abnormality Data Review: This morning and pulse was 67, respirations 18 blood pressure 107/51. Leukocytosis with white blood cell count 10.7, he will be 12.7, hematocrit 36.5, platelets 175, sodium 136, potassium 4.1, BUN 11, creatinine 0.62, AST 204, ALT 145. ABG showed pH of 7.48, pCO2 39, PaO2 106, bicarb 29. Plan: - Case discussed with Dr. Nova: Okay for heparin gtt, plavix, and ASA. Recommends neuro checks q1 hours x 12 hours, then q 2hours. Will transfer patient to our service. - Case discussed with Dr. Walton at 9:20 and orders placed for repeat troponin now and in 6 hours. - Patient will be extubated - start metoprolol 25 mg twice daily as BP is stable off levophed - Discussed with bryan nurse that I place stat orders for ASA, plavix, and heparin gtt. Patient need 1 hours neuro check for 12 horus and then every 2 hours given recent lumbar surgery. - Will need repeat troponin to assess status of SC, CBC to follow HgB, CMP for transamintis - Continue with aggressive pain control including norco 7.5/325 q 6 hours, Dilaudid 0.5 for moderate pain and 1 mg for severe pain (administered 2 mg on 12/02) DVT prophylaxis: Heparin gtt This dictation was prepared using [employer] voice recognition software. Though every attmept is made to correct errors during during dictation some may still exist. Objective - Vital Signs Vital signs: Vital Signs Temp 98.4 F 12/03/22 12:00 Pulse 77 12/03/22 13:00 Resp 8 L 12/03/22 13:00 BP 103/46 12/03/22 13:00 Pulse Ox 97 12/03/22 13:00 FiO2 40 12/03/22 09:28 Intake & Output 12/02/22 12/03/22 12/03/22 18:59 06:59 18:59 Intake Total 4581.457 1078.088 484.354 Output Total 3345 860 770 Balance 1236.457 218.088 -285.646 Weight 77.8 kg 83.7 kg Intake: IV 4402 636 371 LR 450 600 350 Magnesium Sulfate-D5w Pmx 100 1 gm In Dextrose/Water 1 100ml.bag @ 100 mls/hr IVPB ONCE ONE Rx#: [id number] Pressure bag 36 21 Intake, IV Titration 179.457 442.088 113.354 Amount Cisatracurium 200 mg In 58.35 27.463 Sodium Chloride 0.9% 180 ml @ 2 MCG/KG/MIN 9.336 mls/hr IV .[id number] [facility] Rx #:[id number] Norepinephrine 4 mg In 24.752 36.852 Sodium Chloride 0.9% 250 ml @ 0.03 MCG/KG/MIN 8. 893 mls/hr IV .Q24H [facility] Rx#:[id number] propofoL 1,000 mg In 154.705 346.886 85.891 Empty Bag 1 bag @ 15 MCG/ KG/MIN 7.002 mls/hr IV . [id number] [facility] Rx#:[id number] Output: Drainage 160 Back 160 Urine 2985 860 770 Estimated Blood Loss 200 Other: Voiding Method Indwelling Catheter Indwelling Catheter Indwelling Catheter ABP, PAP, CO, CI - Last Documented Arterial Blood Pressure 89/51 - Labs CBC & Chem 7: 12/03/22 04:15 12/03/22 04:15 Labs: Abnormal Lab Results - Last 24 Hours (Table) 12/02/22 12/02/22 12/02/22 Range/Units 11:50 15:16 18:02 WBC (3.8-10.6) k/uL RBC (3.80-5.40) m/uL Neutrophils # (1.3-7.7) k/uL ABG pH (7.35-7.45) ABG HCO3 (21-25) mmol/L ABG Total CO2 (19-24) mmol/L ABG O2 Saturation (94-97) % Sodium (137-145) mmol/L Glucose (74-99) mg/dL POC Glucose (mg/dL) 140 H (70-110) mg/dL Calcium (8.4-10.2) mg/dL AST (14-36) U/L ALT (4-34) U/L Troponin I 0.113 H* (0.000-0.034) ng/mL Total Protein (6.3-8.2) g/dL Albumin (3.5-5.0) g/dL TSH 0.019 L (0.465-4.680) mIU/L 12/03/22 12/03/22 12/03/22 Range/Units 04:15 04:15 05:38 WBC 10.7 H (3.8-10.6) k/uL RBC 3.70 L (3.80-5.40) m/uL Neutrophils # 8.6 H (1.3-7.7) k/uL ABG pH 7.48 H (7.35-7.45) ABG HCO3 29 H (21-25) mmol/L ABG Total CO2 30 H (19-24) mmol/L ABG O2 Saturation 97.8 H (94-97) % Sodium 136 L (137-145) mmol/L Glucose 111 H (74-99) mg/dL POC Glucose (mg/dL) (70-110) mg/dL Calcium 8.3 L (8.4-10.2) mg/dL AST 204 H (14-36) U/L ALT 145 H (4-34) U/L Troponin I (0.000-0.034) ng/mL Total Protein 5.5 L (6.3-8.2) g/dL Albumin 3.4 L (3.5-5.0) g/dL TSH (0.465-4.680) mIU/L 12/03/22 12/03/22 Range/Units 11:01 11:34 WBC (3.8-10.6) k/uL RBC (3.80-5.40) m/uL Neutrophils # (1.3-7.7) k/uL ABG pH (7.35-7.45) ABG HCO3 (21-25) mmol/L ABG Total CO2 (19-24) mmol/L ABG O2 Saturation (94-97) % Sodium (137-145) mmol/L Glucose (74-99) mg/dL POC Glucose (mg/dL) 113 H (70-110) mg/dL Calcium (8.4-10.2) mg/dL AST (14-36) U/L ALT (4-34) U/L Troponin I 5.260 H* (0.000-0.034) ng/mL Total Protein (6.3-8.2) g/dL Albumin (3.5-5.0) g/dL TSH (0.465-4.680) mIU/L
[2022-12-03 18:22] LABS: Glucose,Whole Blood 103 mg/dL (70-110)
[2022-12-04 03:19] LABS: Basophils % (A) 0 %; Eosinophils # (A) 0.2 k/uL (0-0.7); Eosinophils % (A) 2 %; HGB 11.2 gm/dL (11.4-16.0); Lymphocytes # (A) 1.4 k/uL (1.0-4.8); Lymphocytes % (A) 17 %; MCH 33.2 pg (25.0-35.0); MCHC 33.1 g/dL (31.0-37.0); MCV 100.5 fL (80.0-100.0); Mean Platelet Volume 8.1; Monocytes # (A) 0.5 k/uL (0-1.0); Monocytes % (A) 7 %; Neutrophils # (A) 5.6 k/uL (1.3-7.7); Neutrophils % (A) 72 %; Platelet Count 147 k/uL (150-450); RBC 3.38 m/uL (3.80-5.40); RDW 13.5 % (11.5-15.5); WBC 7.8 k/uL (3.8-10.6)
[2022-12-04 03:36] LABS: ALT 106 U/L (4-34); AST 122 U/L (14-36); African American GFR (CKD) >90 (>60 ml/min/1.73 sqM); Albumin 3.1 g/dL (3.5-5.0); Alkaline Phosphatase 77 U/L (38-126); Anion Gap 5 mmol/L; Blood Urea Nitrogen 10 mg/dL (7-17); Calcium 7.6 mg/dL (8.4-10.2); Carbon Dioxide 30 mmol/L (22-30); Chloride 103 mmol/L (98-107); Glucose 101 mg/dL (74-99); Non-African American GFR(CKD) >90 (>60 ml/min/1.73 sqM); Partial Thromboplastin Time 26.6 sec (22.0-30.0); Potassium 3.8 mmol/L (3.5-5.1); Prothrombin Time 10.6 sec (9.0-12.0); Sodium 138 mmol/L (137-145); Total Bilirubin 1.1 mg/dL (0.2-1.3); Total Protein 5.3 g/dL (6.3-8.2)
[2022-12-04] MEDS: HYDROcodone/APAP 7.5-325MG 1 EACH TAB PO PRN ×3 (06:46→20:12)
[2022-12-04] MEDS: LACTATED RINGERS 1,000 ML IV SCH (06:48)
--- NOTE | 2022-12-04 07:46 | P.PN ---
Subjective Progress Note Date: 12/04/22 Principal diagnosis: ACS The patient is a pleasant 62-year-old female patient with a past medical history significant for coronary artery disease with previous stenting of the LAD as well as hypertension and dyslipidemia and history of TIA/CVA the patient sees Dr. Dorantes irregularly was admitted to the hospital to undergo low back surgery. She was admitted to undergo revision to her lumbar vertebrae. We consulted to see the patient for further evaluation of cardiac arrhythmia. Apparently the patient during the surgery she did have an episode of "ventricular tachycardia". The details are unavailable and there is no documentation of the rhythm strip in the computer. That was followed by giving the patient epinephrine. The patient apparently converted to normal sinus mechanism. Again no more details available and no rhythm strip available at this point. The patient after that was brought to the intensive care unit. Currently she is intubated. She underwent a workup including troponin came in to be mildly abnormal with the first set and we are in process of obtaining 2 more sets of serial cardiac enzymes. The EKG showed sinus rhythm with no significant ST or T-wave abnormalities. The patient is known to have CAD with prior stenting of the LAD with the last heart catheterization in 2020 showing patent stent in the LAD with intermediate disease involving the diagonal branch. That was treated medically. The patient also underwent further workup including CBC and BMP and that came in to be unremarkable a TSH also was ordered. Limited echo was performed and we are in process of getting the report at this point. She is in process also to be extubated later on today. Currently she is hemodynamically stable and not on any vasopressors. This point I would continue the current medical regimen. Consider putting the patient on dual antiplatelet therapies is okay from the surgical standpoint of view. Consider putting the patient on beta danish. Follow-up on the echo. December [id number] The patient was seen and evaluated today. She was extubated yesterday. She is not having any chest pain or chest discomfort this morning. Hemodynamically she is stable. She underwent an echo which revealed normal left ventricular systolic function was no evidence of any wall motion abnormalities. She was ruled in for acute coronary event with troponin elevation. The EKG did not show any ischemic ST or T-wave abnormalities noted. The elevation of the troponin could be related to acute coronary syndrome related to severe CAD and also could be related to hypotension during the procedure. At this point she is on heparin IV and she is also on dual antiplatelet therapy as well as statin. I would advise proceeding with coronary angiogram. The examination is remarkable for regular rhythm with diminished breathing sounds bilaterally and no lower except is edema noted Assessment Status post back surgery Cardiac arrhythmia during the surgery in the term of "ventricular fibrillation" Evidence of myocardial injury with no evidence of ischemia clinically or by EKG or by echocardiogram History of CAD with prior revascularization Hypertension Dyslipidemia Plan Continue the current medical regimen as described above including dual antiplatelet therapy as well as high intensity statin as well as heparin Consider proceeding with coronary angiogram giving the severely elevated troponin and the cardiac arrhythmia during the procedure Follow-up with the patient Objective - Vital Signs Vital signs: Vital Signs Temp 98.4 F 12/04/22 04:00 Pulse 80 12/04/22 06:30 Resp 16 12/04/22 06:30 BP 95/55 12/04/22 03:00 Pulse Ox 96 12/04/22 06:30 FiO2 40 12/03/22 09:28 Intake & Output 12/03/22 12/04/22 12/04/22 18:59 06:59 18:59 Intake Total 958.445 4643.833 Output Total 955 1065 Balance -258.646 181.833 Intake: IV 583 586 LR 550 550 Pressure bag 33 36 Intake, IV Titration 113.354 70.833 Amount Cisatracurium 200 mg In 27.463 Sodium Chloride 0.9% 180 ml @ 2 MCG/KG/MIN 9.336 mls/hr IV .[id number] [facility] Rx #:[id number] Heparin Sod,Pork in 0.45% 70.833 NaCl 25,000 unit In 0.45 % NaCl 1 250ml.bag @ 11. 947 UNITS/KG/HR 10 mls/hr IV .Q24H [facility] Rx#: [id number] propofoL 1,000 mg In 85.891 Empty Bag 1 bag @ 15 MCG/ KG/MIN 7.002 mls/hr IV . [id number] [facility] Rx#:[id number] Oral 540 Lipid 50 Pressure bag 50 Output: Drainage 210 Back 210 Urine 955 855 Other: Voiding Method Indwelling Catheter Indwelling Catheter ABP, PAP, CO, CI - Last Documented Arterial Blood Pressure 123/56 - Labs CBC & Chem 7: 12/04/22 03:00 12/04/22 03:00 Labs: Abnormal Lab Results - Last 24 Hours (Table) 12/03/22 12/03/22 12/03/22 Range/Units 11:01 11:34 16:44 RBC (3.80-5.40) m/uL Hgb (11.4-16.0) gm/dL MCV (80.0-100.0) fL Plt Count (150-450) k/uL APTT (22.0-30.0) sec Glucose (74-99) mg/dL POC Glucose (mg/dL) 113 H (70-110) mg/dL Calcium (8.4-10.2) mg/dL AST (14-36) U/L ALT (4-34) U/L Troponin I 5.260 H* 6.700 H* (0.000-0.034) ng/mL Total Protein (6.3-8.2) g/dL Albumin (3.5-5.0) g/dL 12/03/22 12/03/22 12/04/22 Range/Units 19:45 21:20 03:00 RBC (3.80-5.40) m/uL Hgb (11.4-16.0) gm/dL MCV (80.0-100.0) fL Plt Count (150-450) k/uL APTT 132.5 H* (22.0-30.0) sec Glucose 101 H (74-99) mg/dL POC Glucose (mg/dL) (70-110) mg/dL Calcium 7.6 L (8.4-10.2) mg/dL AST 122 H (14-36) U/L ALT 106 H (4-34) U/L Troponin I 5.210 H* (0.000-0.034) ng/mL Total Protein 5.3 L (6.3-8.2) g/dL Albumin 3.1 L (3.5-5.0) g/dL 12/04/22 12/04/22 Range/Units 03:00 03:00 RBC 3.38 L (3.80-5.40) m/uL Hgb 11.2 L (11.4-16.0) gm/dL MCV 100.5 H (80.0-100.0) fL Plt Count 147 L (150-450) k/uL APTT (22.0-30.0) sec Glucose (74-99) mg/dL POC Glucose (mg/dL) (70-110) mg/dL Calcium (8.4-10.2) mg/dL AST (14-36) U/L ALT (4-34) U/L Troponin I 3.660 H* (0.000-0.034) ng/mL Total Protein (6.3-8.2) g/dL Albumin (3.5-5.0) g/dL
--- NOTE | 2022-12-04 07:50 | P.PN ---
Subjective Progress Note Date: 12/04/22 Principal diagnosis: 1. s/p L4-S1 decompression and fusion 2. Adjacent segment disease L3-L4 3. 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 Bilateral lower extremity radiculopathy 5. L3-Pelvis spondylosis, spondylolisthesis and stenosis Patient seen and examined this morning. Patient is very emotional and tearful during assessment. Patient states she is very fearful for the possibility of a cardiac cath being performed today. Emotional support provided. Patient does report pain in her low back that radiates into her bilateral lower extremities. Patient reports pain has been managed. RN reported this morning the patient had altered mental status at the beginning of her shift last night, she believes this is due to Dilaudid. Medications have been adjusted. Patient did have an elevated APTT, heparin drip restarted. Patient has shadowing noted to surgical dressing. Dressing will be changed later today. Hemovac is present with output of 210ml overnight, maintaining compression at this time. Patient has been afebrile, denies nausea/vomiting, or chest pain. Objective - Vital Signs Vital signs: Vital Signs Temp 98.4 F 12/04/22 04:00 Pulse 80 12/04/22 06:30 Resp 16 12/04/22 06:30 BP 95/55 12/04/22 03:00 Pulse Ox 96 12/04/22 06:30 FiO2 40 12/03/22 09:28 Intake & Output 12/03/22 12/04/22 12/04/22 18:59 06:59 18:59 Intake Total 546.515 3243.833 Output Total 955 1065 Balance -258.646 181.833 Intake: IV 583 586 LR 550 550 Pressure bag 33 36 Intake, IV Titration 113.354 70.833 Amount Cisatracurium 200 mg In 27.463 Sodium Chloride 0.9% 180 ml @ 2 MCG/KG/MIN 9.336 mls/hr IV .[id number] [facility] Rx #:[id number] Heparin Sod,Pork in 0.45% 70.833 NaCl 25,000 unit In 0.45 % NaCl 1 250ml.bag @ 11. 947 UNITS/KG/HR 10 mls/hr IV .Q24H [facility] Rx#: [id number] propofoL 1,000 mg In 85.891 Empty Bag 1 bag @ 15 MCG/ KG/MIN 7.002 mls/hr IV . [id number] [facility] Rx#:[id number] Oral 540 Lipid 50 Pressure bag 50 Output: Drainage 210 Back 210 Urine 955 855 Other: Voiding Method Indwelling Catheter Indwelling Catheter ABP, PAP, CO, CI - Last Documented Arterial Blood Pressure 123/56 - Exam Physical Examination General: The patient is awake and alert, in no acute distress Skin: Skin is warm and dry with no obvious rashes or lesions. Hairy patches absent, no dorsal skin dimples, no cafe au lait spots. Surgical dressing to lumbar spine with hemovac present. Eye: Pupils are equal, round and reactive to light, extra-ocular movements are intact; there is normal conjunctiva bilaterally. Neck: The neck is supple, there is no tenderness and ROM intact. Cardiovascular: There is a regular rate and rhythm. No murmur, rub or gallop is appreciated. Respiratory: Lungs are clear to auscultation, respirations are non-labored, breath sounds are equal. Gastrointestinal: Soft, non-distended, non-tender abdomen. Back: There is mild tenderness to palpation in the midline, paralumbar region. There is no obvious deformity . Musculoskeletal: ROM limited secondary to pain and stiffness from surgical procedure. Muscle strength in all major muscle groups of bilateral upper extremities 5/5, bilateral lower extremities 4/5. Neurological: CN 2-12 intact. There are no obvious motor or sensory deficits. Movement and coordination equal and intact. Sensory exam to light touch intact C5-T1 and intact from L2-S1. Reflexes 2/4 in bilateral upper and lower extremities. Negative Hoffmans, babinski, and clonus signs. Psychiatric: Cooperative, appropriate mood & affect, normal judgment. - Labs CBC & Chem 7: 12/04/22 03:00 12/04/22 03:00 Labs: Abnormal Lab Results - Last 24 Hours (Table) 12/03/22 12/03/22 12/03/22 Range/Units 11:01 11:34 16:44 RBC (3.80-5.40) m/uL Hgb (11.4-16.0) gm/dL MCV (80.0-100.0) fL Plt Count (150-450) k/uL APTT (22.0-30.0) sec Glucose (74-99) mg/dL POC Glucose (mg/dL) 113 H (70-110) mg/dL Calcium (8.4-10.2) mg/dL AST (14-36) U/L ALT (4-34) U/L Troponin I 5.260 H* 6.700 H* (0.000-0.034) ng/mL Total Protein (6.3-8.2) g/dL Albumin (3.5-5.0) g/dL 12/03/22 12/03/22 12/04/22 Range/Units 19:45 21:20 03:00 RBC (3.80-5.40) m/uL Hgb (11.4-16.0) gm/dL MCV (80.0-100.0) fL Plt Count (150-450) k/uL APTT 132.5 H* (22.0-30.0) sec Glucose 101 H (74-99) mg/dL POC Glucose (mg/dL) (70-110) mg/dL Calcium 7.6 L (8.4-10.2) mg/dL AST 122 H (14-36) U/L ALT 106 H (4-34) U/L Troponin I 5.210 H* (0.000-0.034) ng/mL Total Protein 5.3 L (6.3-8.2) g/dL Albumin 3.1 L (3.5-5.0) g/dL 12/04/22 12/04/22 Range/Units 03:00 03:00 RBC 3.38 L (3.80-5.40) m/uL Hgb 11.2 L (11.4-16.0) gm/dL MCV 100.5 H (80.0-100.0) fL Plt Count 147 L (150-450) k/uL APTT (22.0-30.0) sec Glucose (74-99) mg/dL POC Glucose (mg/dL) (70-110) mg/dL Calcium (8.4-10.2) mg/dL AST (14-36) U/L ALT (4-34) U/L Troponin I 3.660 H* (0.000-0.034) ng/mL Total Protein (6.3-8.2) g/dL Albumin (3.5-5.0) g/dL Assessment and Plan Assessment: Post op Day 2: Revision posteriolateral fusion L3-S1 with Removal of hardware L4-S1 Surgical Intervention was crash closed due to Ventricular fibrillation arrest 1. s/p L4-S1 decompression and fusion 2. Adjacent segment disease L3-L4 3. Pseudoarthrosis L4-S1 4.Bilateral lower extremity radiculopathy 5. L3-Pelvis spondylosis, spondylolisthesis and stenosis Plan: -Appreciate dairy consultant and team management. -Activity: Ambulate QID, OOB all meals, up and about, limit lifting bending twisting to less than 5 lbs. Use walker or cane if needed for stability. -Daily PT/OT, increase ambulation strength and balance. -Pain control: Adequate at this time -Meds: reviewed -GI ppx: senna, Miralax -DC bullard when up and about, bedside commode if needed -DVT PPX: per medicine -Hygiene: Shower today. Maintain dressing clean and dry. Meticulous cleaning after BMs away from the incision site -Drains: Maintain for now. DC later today pending out put and PT -Encourage IS 10x/hr -Dispo: pending *I reviewed and discussed this case with my attending Dr. Nova, whom has reviewed this chart and films and is in agreement with assessment and plan of care as outlined above. I have personally seen and examined the patient, performed the documentation and the assessment and plan as written. Number of minutes spent on the visit: 10m.
[2022-12-04] MEDS: PANTOPRAZOLE 40 MG/10 ML VIAL IV SCH (08:19)
[2022-12-04] MEDS: CYCLOBENZAPRINE 10 MG TAB PO PRN ×2 (08:19→22:13)
[2022-12-04] MEDS: ASPIRIN 81 MG PO SCH (08:19)
[2022-12-04] MEDS: CLOPIDOGREL 75 MG TAB PO SCH (08:19)
[2022-12-04] MEDS: PREGABALIN 75 MG CAP PO SCH ×3 (08:19→20:11)
[2022-12-04] MEDS: ATORVASTATIN 80 MG TAB PO SCH (08:19)
[2022-12-04] MEDS ORDERED: LORazepam 2 MG/ML INJ IV PRN (09:06)
--- NOTE | 2022-12-04 09:15 | XR ---
EXAMINATION TYPE: XR chest 1V portable DATE OF EXAM: 12/04/2022 Comparison: 12/03/2022 Clinical History: 62 year-old female tube placement Findings: ACDF hardware. Some skin dilia are noted along the upper abdominal midline. Strandy atelectasis per iphery of the left base. Heart upper limits of normal in size. No consolidation or pleural effusion o therwise seen. Impression: Some strandy left basilar atelectasis. Otherwise, no definite acute process.
[2022-12-04] MEDS ORDERED: VERAPAMIL 2.5 MG/ML 2 ML AMP ONE (09:21)
[2022-12-04] MEDS ORDERED: HEPARIN SODIUM 1,000 UN/ML (10ML VL) ONE (09:42)
[2022-12-04] MEDS ORDERED: IV FLUID CONTINUATION 400 ML IV ONE (10:00)
[2022-12-04] MEDS ORDERED: LIDOCAINE 1% INJ 10MG/ML (10 ML MDV) SQ ONE (10:01)
[2022-12-04] MEDS: VERAPAMIL SYRINGE (5 MG/10 ML) INTRAARTER ONE ×2 (10:06→10:23)
[2022-12-04] MEDS ORDERED: HEPARIN SODIUM 1,000 UN/ML (10ML VL) IV ONE (10:08)
[2022-12-04] MEDS ORDERED: NITROGLYCERIN 1000MCG/10ML SYRINGE INTRACORON ONE (10:14)
[2022-12-04] MEDS ORDERED: IOPAMIDOL-370 100ML BTL INJ ONE (10:24)
[2022-12-04] MEDS ORDERED: RX INFO: IV CONTRAST WAS GIVEN 1 EACH MISC MISCELLANE PRN ×2 (10:32→10:36)
[2022-12-04] MEDS ORDERED: SODIUM CHLORIDE 0.9% 1,000 ML IV SCH (10:45)
[2022-12-04] MEDS: NOREPINEPHRINE 4 MG in SODIUM CHLORIDE 0.9% 250 ML IV SCH (11:20)
[2022-12-04] MEDS: SODIUM CHLORIDE 0.9% 1,000 ML IV SCH (11:21)
[2022-12-04] MEDS: MORPHINE SULFATE 2 MG/ML SYRINGE IVP PRN (11:21)
--- NOTE | 2022-12-04 12:04 | CT ---
EXAMINATION TYPE: CT lumbar spine wo con DATE OF EXAM: 12/04/2022 11:13 AM COMPARISON: CT lumbar spine October 10, 2022 HISTORY: Post op CT DLP: 1278.9 mGycm Automated exposure control for dose reduction was used. Unenhanced CT of the lumbar spine was performed. Bone and soft tissue window settings are submitted as well as coronal and sagittal reconstructions. There are 5 lumbar-type vertebra redemonstrated. There are now posterior interpedicular rods and scre ws transfixing L3-S1 levels on the left and L3-L5 levels on the right. Metallic cage redemonstrated L 5-S1 level similar to prior. Vertebral body heights and disc space heights are preserved above the L3 level. Review of the axial images shows position satisfactory bilaterally at L3 level. There is breach of th e right L4 screw into the adjacent paraspinal fat on axial image 71 on current study. There is slight breech of the bilateral L5 screws through the anterior vertebral body margin into the paraspinal fat on axial image 80 on right and image 86 on the left unchanged in appearance and position from prior exam. New left S1 screw extends through the anterior sacral margin into the adjacent fat axial image 87. No neural foraminal encroachment seen on sagittal images. Extensive heterotopic ossification post eriorly is redemonstrated. Bilateral laminectomy defects and spinous process resection the lower lumb ar spine is again seen. There are new vertical oriented skin dilia along the periphery noted. There is contrast excretion in both kidneys without hydronephrosis. Cholecystectomy clips are seen. IMPRESSION: Interval surgery with fusion hardware L3-S1 levels on current study as detailed above. Al ignment stable and satisfactory
--- NOTE | 2022-12-04 13:03 | P.PN ---
Subjective Progress Note Date: 12/04/22 Principal diagnosis: Respiratory failure. Pulmonary consult dated 12/02/2022. 62-year-old female who apparently initially presented to orthopedics, with back pain. The patient has a history of lumbar fusion 1999 with revision, and 2005. The patient was scheduled to have a L4-S1 decompression and fusion, and that procedure was scheduled for 12/02/2022. During the procedure, the patient had issues with low blood pressure, and ventricular fibrillation, and on 2 occasions, he did significant resuscitation. This included fluids, epinephrine, norepinephrine, etc. I was called by the anesthesiologist, Dr. French, and a bed was provided the patient in the intensive care unit. In addition to low back pain, chronic, the patient has a history of hypertension, urinary incontinence, hyperlipidemia, hypothyroidism, among other things. Currently, the patient's in the intensive care unit. Her ventilator settings include the volume assist control, rate 14, tidal volume 600, FiO2 50%, and PEEP of 5. Blood gases, show pO2 of 400, pCO2 45, and a pH is 7.31. These blood gases are consistent with a mild respiratory acidosis. The blood gases were done on a volume assist control rate of 10, and an FiO2 of 100%. Adjustments included increasing the rate 18, reducing the tidal volume to 450, and drop in the FiO2 down from 100%, to 50%, down to 40%. Currently, the patient's on propofol at 50 mcg/kg/m, norepinephrine at 1 mcg/m, and lactated Ringer's at 50 mL an hour. Cardiology has been consulted. She has 2 peripheral IVs, and an arterial line, placed by anesthesia. Other laboratory data includes a white count of 7.6, hemoglobin 12.4, hematocrit 37.2, and a platelet count of 148,000. Sodium 138, potassium 3.8, chlorides 104, CO2 22, BUN 11, creatinine 0.61. AST was 390, ALT was 141. Post surgical chest x-ray shows the endotracheal tube and NG tube to be in good locations. And there is a patchy infiltrate or atelectasis in the left lower lobe. Unfortunately, the entire procedure, was aborted, and the incision was closed according to the surgeon. Progress note dated 12/03/2022. This is a 62-year-old female who underwent an attempted orthopedic procedure yesterday, but unfortunately, during the case, developed some cardiac instability. The patient was brought back to the intensive care unit, because of hypotension, and ventricular fibrillation. Currently, she remains on the mechanical ventilator, with settings of volume assist control, rate 18, tidal volume 450, FiO2 40%, PEEP of 5. Arterial blood gases show pO2 106, pCO2 39, and a pH is 7.48. The patient is currently on lactated Ringer's at 50 mL an hour, Nimbex at 1 mcg/kg/m, and propofol 60 mcg/kg/m. Today, we will do a daily interruption of sedation, with a spontaneous breathing trial. White count 10.7, hemoglobin 12.7, hematocrit 36.5, and platelet count 275,000. Sodium 136, potassium 4.1, chlorides 101, CO2 28, BUN 11, creatinine 0.62. Chest x-ray looks rather good, with a minimal infiltrate at the left lower lobe. Progress note dated 12/04/2022. 62-year-old female who had an attempted orthopedic procedure done 2 days ago, and during the case, developed some cardiac instability, with hypotension, and ventricular fibrillation. The case was aborted, the patient was maintained on the ventilator, and brought back to the intensive. She was extubated yesterday. She went back to the catheterization laboratory today, and report isn't the catheterization was relatively normal. She's currently on 2 L of oxygen. She's getting lactated Ringer's at 50 mL an hour. When we saw her, she was on IV heparin. Clinically she is awake and alert. White count 7.8, hemoglobin 11.2, hematocrit 34, and platelet count 147,000. Coagulation studies were normal. Sodium, potassium, chloride, CO2, anion gap, BUN, and creatinine are all normal. Troponins were elevated. Chest x-ray shows some very minimal basilar atelectasis. Objective - Vital Signs Vital signs: Vital Signs Temp 99.2 F 12/04/22 08:00 Pulse 80 12/04/22 08:30 Resp 14 12/04/22 09:00 BP 95/55 12/04/22 03:00 Pulse Ox 96 12/04/22 09:00 FiO2 40 12/03/22 09:28 Intake & Output 12/03/22 12/04/22 12/04/22 18:59 06:59 18:59 Intake Total 307.395 9652.833 243.508 Output Total 955 1065 75 Balance -258.646 181.833 168.508 Intake: IV 583 586 206 LR 550 550 100 Pressure bag 33 36 6 Intake, IV Titration 113.354 70.833 37.508 Amount Cisatracurium 200 mg In 27.463 Sodium Chloride 0.9% 180 ml @ 2 MCG/KG/MIN 9.336 mls/hr IV .[id number] [facility] Rx #:[id number] Heparin Sod,Pork in 0.45% 70.833 37.508 NaCl 25,000 unit In 0.45 % NaCl 1 250ml.bag @ 11. 947 UNITS/KG/HR 10 mls/hr IV .Q24H [facility] Rx#: [id number] propofoL 1,000 mg In 85.891 Empty Bag 1 bag @ 15 MCG/ KG/MIN 7.002 mls/hr IV . [id number] [facility] Rx#:[id number] Oral 540 Lipid 50 Pressure bag 50 Output: Drainage 210 Back 210 Urine 955 855 75 Other: Voiding Method Indwelling Catheter Indwelling Catheter Indwelling Catheter ABP, PAP, CO, CI - Last Documented Arterial Blood Pressure 127/57 - Exam No acute distress, oriented 3, currently on 2 L of oxygen. HEENT examination is grossly unremarkable. Neck supple. Full range of motion. No adenopathy thyromegaly or neck vein distention. Cardiovascular examination reveals regular rhythm rate. S1-S2 normal. No S3 or S4. No discernible murmur noted. Heart rate 80 bpm. Heart sounds are distant. Lungs reveal clear breath sounds. Breath sounds are equal bilaterally. No adventitious lung sounds including wheezes rhonchi or crackles. Saturations are 97 %. Abdomen soft without bowel sounds. Extremities are intact. No cyanosis clubbing or edema. Skin is without rash or lesion. Neurologic examination is within normal range. - Labs CBC & Chem 7: 12/04/22 03:00 12/04/22 03:00 Labs: Abnormal Lab Results - Last 24 Hours (Table) 12/03/22 12/03/22 12/03/22 Range/Units 16:44 19:45 21:20 RBC (3.80-5.40) m/uL Hgb (11.4-16.0) gm/dL MCV (80.0-100.0) fL Plt Count (150-450) k/uL APTT 132.5 H* (22.0-30.0) sec Glucose (74-99) mg/dL Calcium (8.4-10.2) mg/dL AST (14-36) U/L ALT (4-34) U/L Troponin I 6.700 H* 5.210 H* (0.000-0.034) ng/mL Total Protein (6.3-8.2) g/dL Albumin (3.5-5.0) g/dL 12/04/22 12/04/22 12/04/22 Range/Units 03:00 03:00 03:00 RBC 3.38 L (3.80-5.40) m/uL Hgb 11.2 L (11.4-16.0) gm/dL MCV 100.5 H (80.0-100.0) fL Plt Count 147 L (150-450) k/uL APTT (22.0-30.0) sec Glucose 101 H (74-99) mg/dL Calcium 7.6 L (8.4-10.2) mg/dL AST 122 H (14-36) U/L ALT 106 H (4-34) U/L Troponin I 3.660 H* (0.000-0.034) ng/mL Total Protein 5.3 L (6.3-8.2) g/dL Albumin 3.1 L (3.5-5.0) g/dL Assessment and Plan Assessment: Postop day #2, attempted, L4-S1 decompression and fusion for chronic back pain. Significant cardiopulmonary instability characterized by ventricular fibrillation, and hypotension, resulting in the premature termination of the procedure. Respiratory failure, requiring admission to the ICU, with an orally placed endot noah tube, and mechanically ventilated, patient was successfully extubated on 12/03/2022. History of CAD, with previous PCI, and stent placement. History of hyperlipidemia. History of hypertension. History of urinary incontinence. History of hypothyroidism. History of chronic tobacco use. Plan: Plan dated 12/02/2022. The patient was transferred to the intensive care unit. The patient is maintained on the mechanical ventilator. We will keep her on the ventilator overnight. I've asked cardiology to see the patient has a preoperatively. The blood gases show a very mild respiratory acidosis. The tidal volume was reduced from 600 down to 450 mL. The rate was increased from 14 to 18. The FiO2 was eventually dropped to 40%. The patient remains on propofol at 50 mcg/kg/m, lactated Ringer's at 50 mL an hour, and norepinephrine at 1 mcg/m. Labs, x- rays, and medications are reviewed. Additional recommendations and suggestions are forthcoming. Plan dated 12/03/2022. The patient had an uneventful night. At one point, despite the fact that she was on high doses of propofol, we ended up attempting to paralyzed her with despite being on Nimbex, she was still moving about in the bed. This morning, she will have a interruption of sedation, and a spontaneous breathing trial. Hopefully, we'll be able get the patient extubated. Additional recommendations and suggestions are forthcoming. Yesterday, she was on norepinephrine, but is not on it anymore. Labs, x-rays, and medications are reviewed. We will continue to follow and make recommendations along the way. Plan dated 12/04/2022. The patient was successfully extubated on December 03. Currently, she is on 2 L. She's getting lactated Ringer's at 50 mL an hour. She still on IV heparin until she has her cardiac catheterization. Labs, x-rays, and medications are reviewed. Prognosis is guarded. If her cardiac catheterization is normal, or insignificant, the patient could likely be discharged out of the intensive care unit, later today. Time with Patient: Less than 30
[2022-12-04] MEDS ORDERED: oxyCODONE-APAP 7.5-325MG 1 EACH TAB PO STA (14:53)
[2022-12-04] MEDS: HEPARIN SODIUM,PORCINE/PF 5,000 UNIT/0.5 ML SYRINGE SQ SCH ×2 (14:59→23:33)
[2022-12-04] MEDS: METOPROLOL SUCCINATE (ER) 25 MG TAB.ER.24H PO SCH (15:00)
--- NOTE | 2022-12-04 15:37 | P.PN ---
Subjective Progress Note Date: 12/04/22 (delayed charting seen at 0930) Patient is a 62-year-old female with hypertension, dyslipidemia, coronary artery disease status post 6 stents, and fibromyalgia who initially presented for lumbar decompression and fusion L4 to S1. During the procedure the patient had low blood pressure and developed ventricular fibrillation on 2 separate occasions. This required resuscitation with IV fluids, epinephrine, and norepinephrine. She was subsequently admitted to the ICU. We were consulted for hypertensive management. Her procedure was aborted early due to the ventricular fibrillation and she did have a posterior lateral fusion of L3 to S1, removal of hardware L4 to S1. On arrival to the ICU she was requiring norepinephrine and was intubated. Pulmonary and cardiology were consulted. She underwent an echocardiogram which showed a preserved ejection fraction and no wall motion abnormality. Overnight on 12/02 she became agitated and was unable to ventilate due to biting on the tube and required Nimbex. Her Troponin maxed at 6.7 and she was started on a heparin gtt, plavix, and Aspirin. Imaging: Limited Echo with EF 50-55%, mild LVH, no wall motion abnormality Patient seen and examined at bedside. Per nursing she did not tolerate dilaudid well and was transitioned to morphine. Patient is upset and anxious about what all this means for her back and if it is going to be messed up forever. She denies chest pain, sob, and nausea. Vital signs reviewed General: nontoxic, no distress, appears at stated age Cardiovascular: S1S2 reg, no murmur, positive posterior tibial pulse bilateral, Lungs: CTA bilateral, no rhonchi, no rales , no accessory muscle use Abdominal: soft, nontender to palpation, no guarding, no appreciable organomegaly Ext: no gross muscle atrophy, no edema, no contractures Psych: sedated on vent, opens every to name, and moving all 4 extremities independently. Assessment: Patient is a 62-year-old female who initially presents presented for revision of her lumbar fusion. Intraoperatively she had a ventricular arrhythmia arrest which aborted quickly. Her spine was stabilized and the remainder of the procedure was aborted. Eleavetd troponin Type I vs Type II NSTEMI- plan is for cath for 3/2 Transaminitis, suspect ischemic Leukocytosis, reactive HTN HLD CAD with hx of stents Thrombocytopenia, anticipated outcome, resolved Imaging: No new imaging reviewed. Data Review: Vitals reviewed from this morning. Geritoy analysis reviewed from this morning blood cell 7.8, hemoglobin 11.2, platelet count 147, PT 10, INR 1, PTT 26 (down from 132.5 last night), sodium 138, potassium 3.8, chloride 103, carbon dioxide 30, BUN 10, creatinine 0.61, glucose 101, calcium 7.6, AST 122, ALT 106, troponin 3.66, albumin 3.1 Plan: - Case discussed with Dr. Walton who recommends cardiac cath today to evaluate for obstructive cardiac disease. Discussed with Dr. Nova and patient is spine stable for cath and okay for heparin, plavix, and asa. Patient has not been decompressed and we will need to continue to monitor neuro check closely. - Pulmonary not reviewed likely out of ICU later today. - Metoprolol 25 mg daily, Lipitor 80 mg daily - will need repeat CBC in AM to assess Hgb given recent surgery and need for dual antiplatelet surgery, needs repeat renal function in renal function in - Will need repeat CMP for transamintis -- down trending but given cath - Continue with aggressive pain control including norco 7.5/325 q 6 hours, Morphine 2mg q 4 hours. DVT prophylaxis: Heparin gtt This dictation was prepared using [employer] voice recognition software. Though every attempt is made to correct errors during during dictation some may still exist. Objective - Vital Signs Vital signs: Vital Signs Temp 98.9 F 12/04/22 15:04 Pulse 76 12/04/22 15:04 Resp 18 12/04/22 15:04 BP 110/56 12/04/22 15:04 Pulse Ox 96 12/04/22 15:04 FiO2 40 12/03/22 09:28 Intake & Output 12/03/22 12/04/22 12/04/22 18:59 06:59 18:59 Intake Total 697.501 0011.833 552.508 Output Total 955 1065 325 Balance -258.646 181.833 227.508 Intake: IV 583 586 515 LR 550 550 100 Pressure bag 33 36 15 Sodium Chloride 0.9% 1, 300 000 ml @ 75 mls/hr IV . [id number] [facility] Rx#:[id number] Intake, IV Titration 113.354 70.833 37.508 Amount Cisatracurium 200 mg In 27.463 Sodium Chloride 0.9% 180 ml @ 2 MCG/KG/MIN 9.336 mls/hr IV .[id number] [facility] Rx #:[id number] Heparin Sod,Pork in 0.45% 70.833 37.508 NaCl 25,000 unit In 0.45 % NaCl 1 250ml.bag @ 11. 947 UNITS/KG/HR 10 mls/hr IV .Q24H [facility] Rx#: [id number] propofoL 1,000 mg In 85.891 Empty Bag 1 bag @ 15 MCG/ KG/MIN 7.002 mls/hr IV . [id number] [facility] Rx#:[id number] Oral 540 Lipid 50 Pressure bag 50 Output: Drainage 210 Back 210 Urine 955 855 325 Other: Voiding Method Indwelling Catheter Indwelling Catheter Indwelling Catheter ABP, PAP, CO, CI - Last Documented Arterial Blood Pressure 117/51 - Labs CBC & Chem 7: 12/04/22 03:00 12/04/22 03:00 Labs: Abnormal Lab Results - Last 24 Hours (Table) 12/03/22 12/03/22 12/03/22 Range/Units 16:44 19:45 21:20 RBC (3.80-5.40) m/uL Hgb (11.4-16.0) gm/dL MCV (80.0-100.0) fL Plt Count (150-450) k/uL APTT 132.5 H* (22.0-30.0) sec Glucose (74-99) mg/dL Calcium (8.4-10.2) mg/dL AST (14-36) U/L ALT (4-34) U/L Troponin I 6.700 H* 5.210 H* (0.000-0.034) ng/mL Total Protein (6.3-8.2) g/dL Albumin (3.5-5.0) g/dL 12/04/22 12/04/22 12/04/22 Range/Units 03:00 03:00 03:00 RBC 3.38 L (3.80-5.40) m/uL Hgb 11.2 L (11.4-16.0) gm/dL MCV 100.5 H (80.0-100.0) fL Plt Count 147 L (150-450) k/uL APTT (22.0-30.0) sec Glucose 101 H (74-99) mg/dL Calcium 7.6 L (8.4-10.2) mg/dL AST 122 H (14-36) U/L ALT 106 H (4-34) U/L Troponin I 3.660 H* (0.000-0.034) ng/mL Total Protein 5.3 L (6.3-8.2) g/dL Albumin 3.1 L (3.5-5.0) g/dL
[2022-12-04] MEDS: MORPHINE SULFATE 4 MG/ML SYRINGE IVP PRN (19:39)
[2022-12-04] MEDS ORDERED: ALBUTEROL HFA INHALER INHALATION PRN (19:45)
[2022-12-04] MEDS ORDERED: TIOTROPIUM 2.5 MCG INHALER INHALATION PRN (19:46)
[2022-12-04 20:23] LABS: Glucose,Whole Blood 147 mg/dL (70-110)
--- NOTE | 2022-12-04 23:12 | CC ---
CARDIAC CATHETERIZATION REPORT INDICATIONS: Ms. Adeline Christiansen is a 62-year-old lady who was admitted here for elective back surgery, but developed some arrhythmia and hypotension during induction and surgery was not performed. Then, she had troponin elevation. Therefore, I have advised cardiac cath. She is known to have CAD, prior stenting of RCA in 2013 and subsequently in 2018 also she had LAD stenting. As recently as July 2021, I performed a cardiac cath which revealed that the RCA as well as LAD stents were patent. There was a diagonal lesion 60% to 70% at the ostium for which medical therapy was advised. Against this background, given her presentation, she was advised cardiac cath and I discussed with her the rationale, risks, benefits and options. PROCEDURE NOTE: Under local anesthesia and strict aseptic precautions, a 6-Turkish introducer was placed in the right radial artery. Using a JL3.0 and JR4.0 catheters, I performed coronary angiography, and the same right catheter was used to check LV pressure, but LV gram was not performed. The patient tolerated the procedure well. The sheath was taken out and TR band applied as per protocol with saturation of the fingers of the right hand of 93%. ANESTHESIA: Moderate conscious sedation time was 18 minutes. The patient was administered Versed. Oxygen saturation, hemodynamics and EKG per monitor. CARDIAC CATHETERIZATION FINDINGS: Left ventricular end-diastolic pressure was 11 mmHg without any gradient across aortic valve. CORONARY ANGIOGRAPHY FINDINGS: LEFT MAIN CORONARY ARTERY: Short patent vessel free of significant disease, it bifurcates into LAD and circumflex. LEFT ANTERIOR DESCENDING CORONARY ARTERY: Good-caliber vessel extends along the anterior wall, mid LAD has a stented area, it is widely patent with brisk flow just before the stented segment. The diagonal branch comes off which has about a 70% stenosis, but the flow is brisk and the angiographic appearance is unchanged. There is another septal branch that comes off from the LAD which is free of significant disease. Overall, LAD is widely patent at the site of stenting and the major diagonal branch before the stented segment has a 70% lesion unchanged from before. LEFT POSTERIOR CIRCUMFLEX CORONARY ARTERY: This is a nondominant vessel, gives off a high obtuse marginal and a second obtuse marginal and then runs in the AV groove, a small caliber small distribution vessel. No significant disease. RIGHT CORONARY ARTERY: A very dominant vessel at the site of previous stenting in the proximal RCA. The vessel is widely patent. Beyond that, there are minor irregularities of less than 30% and then it gives off what seems to be an acute marginal branch that runs in the PDA distribution. This has about a 70% ostial lesion with brisk flow. Then the vessel continues as a PLV branch, has about a 40% narrowing but no significant disease overall. The dominant RCA has non-critical disease unchanged from before and the previously placed stent is widely patent. FINAL IMPRESSION: This patient has a right-dominant system. Normal filling pressures. No gradient. No significant disease in the proximal RCA that was stented. A branch of RCA has a 60% to 70% narrowing. Major diagonal has a 60% to 70% narrowing. LAD is widely patent. Left main and circumflex are free of significant disease. RECOMMENDATIONS: Findings were discussed with Dr. Walton and also the patient and her family. No significant progression of disease. The patient can proceed with her spine surgery as long as she has no further arrhythmia and she is being monitored in the ICU. Prognosis remains guarded. Risk remains high for surgery given the circumstances. MMODL / IJN: [id number] /
[2022-12-04] MEDS: QUEtiapine 400 MG TAB PO SCH (23:33)
[2022-12-05] MEDS: SODIUM CHLORIDE 0.9% 1,000 ML IV SCH (00:20)
[2022-12-05] MEDS: MORPHINE SULFATE 4 MG/ML SYRINGE IVP PRN ×4 (02:26→21:04)
[2022-12-05] MEDS: HYDROcodone/APAP 7.5-325MG 1 EACH TAB PO PRN ×3 (02:26→23:12)
[2022-12-05] MEDS: CYCLOBENZAPRINE 10 MG TAB PO PRN (05:17)
[2022-12-05] MEDS: LEVOTHYROXINE 125 MCG TAB PO SCH (06:09)
[2022-12-05 06:16] LABS: Glucose,Whole Blood 143 mg/dL (70-110)
[2022-12-05 07:39] LABS: Basophils % (A) 0 %; Eosinophils # (A) 0.3 k/uL (0-0.7); Eosinophils % (A) 4 %; HCT 32.9 % (34.0-46.0); Lymphocytes # (A) 1.5 k/uL (1.0-4.8); Lymphocytes % (A) 22 %; MCH 34.2 pg (25.0-35.0); MCHC 33.5 g/dL (31.0-37.0); MCV 101.9 fL (80.0-100.0); Macrocytosis Slight; Mean Platelet Volume 7.8; Monocytes # (A) 0.5 k/uL (0-1.0); Monocytes % (A) 7 %; Neutrophils # (A) 4.3 k/uL (1.3-7.7); Neutrophils % (A) 64 %; Platelet Count 159 k/uL (150-450); RBC 3.23 m/uL (3.80-5.40); RDW 12.8 % (11.5-15.5); WBC 6.7 k/uL (3.8-10.6)
[2022-12-05 07:55] LABS: African American GFR (CKD) >90 (>60 ml/min/1.73 sqM); Anion Gap 3 mmol/L; Blood Urea Nitrogen 9 mg/dL (7-17); Calcium 7.6 mg/dL (8.4-10.2); Carbon Dioxide 31 mmol/L (22-30); Chloride 105 mmol/L (98-107); Glucose 117 mg/dL (74-99); Non-African American GFR(CKD) >90 (>60 ml/min/1.73 sqM); Potassium 3.9 mmol/L (3.5-5.1); Sodium 139 mmol/L (137-145)
--- NOTE | 2022-12-05 08:17 | P.PN ---
Subjective Progress Note Date: 12/05/22 Principal diagnosis: 1. s/p L4-S1 decompression and fusion 2. Adjacent segment disease L3-L4 3. 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 Bilateral lower extremity radiculopathy 5. L3-Pelvis spondylosis, spondylolisthesis and stenosis Patient seen and examined this morning. Patient is resting in bed. She continues to have pain in low back that radiates to her bilateral lower extremities. Medications have been adjusted per medicine yesterday. Patient has not been up since procedure. Patient's mother is bringing in her LSO brace. Patient may be up as tolerated without brace at this time. Surgical dressing will be changed later today. Hemovac is present with output of 80ml overnight, maintaining compression at this time. [employer] has provided clearance for surgery when appropriate. Patient has been restarted on her Plavix. Patient has been afebrile, denies nausea/vomiting, or chest pain. Objective - Vital Signs Vital signs: Vital Signs Temp 98.3 F 12/05/22 03:35 Pulse 66 12/05/22 03:35 Resp 18 12/05/22 03:35 BP 116/60 12/05/22 03:35 Pulse Ox 94 L 12/05/22 03:35 FiO2 40 12/03/22 09:28 Intake & Output 12/04/22 12/05/22 12/05/22 18:59 06:59 18:59 Intake Total 732.508 Output Total 325 880 Balance 407.508 -880 Intake: IV 515 LR 100 Pressure bag 15 Sodium Chloride 0.9% 1, 300 000 ml @ 75 mls/hr IV . [id number] [facility] Rx#:[id number] Intake, IV Titration 37.508 Amount Heparin Sod,Pork in 0.45% 37.508 NaCl 25,000 unit In 0.45 % NaCl 1 250ml.bag @ 11. 947 UNITS/KG/HR 10 mls/hr IV .Q24H [facility] Rx#: [id number] Oral 180 Output: Drainage 80 Back 80 Urine 325 800 Other: Voiding Method Indwelling Catheter Bedpan # Voids 1 ABP, PAP, CO, CI - Last Documented Arterial Blood Pressure 117/51 - Exam Physical Examination General: The patient is awake and alert, in no acute distress Skin: Skin is warm and dry with no obvious rashes or lesions. Hairy patches absent, no dorsal skin dimples, no cafe au lait spots. Surgical dressing to lumbar spine with hemovac present. Eye: Pupils are equal, round and reactive to light, extra-ocular movements are intact; there is normal conjunctiva bilaterally. Neck: The neck is supple, there is no tenderness and ROM intact. Cardiovascular: There is a regular rate and rhythm. No murmur, rub or gallop is appreciated. Respiratory: Lungs are clear to auscultation, respirations are non-labored, breath sounds are equal. Gastrointestinal: Soft, non-distended, non-tender abdomen. Back: There is mild tenderness to palpation in the midline, paralumbar region. There is no obvious deformity . Musculoskeletal: ROM limited secondary to pain and stiffness from surgical procedure. Muscle strength in all major muscle groups of bilateral upper extremities 5/5, bilateral lower extremities 4/5. Neurological: CN 2-12 intact. There are no obvious motor or sensory deficits. Movement and coordination equal and intact. Sensory exam to light touch intact C5-T1 and intact from L2-S1. Reflexes 2/4 in bilateral upper and lower extremities. Negative Hoffmans, babinski, and clonus signs. Psychiatric: Cooperative, appropriate mood & affect, normal judgment. - Labs CBC & Chem 7: 12/05/22 07:01 12/05/22 07:01 Labs: Abnormal Lab Results - Last 24 Hours (Table) 12/04/22 12/05/22 12/05/22 Range/Units 20:22 06:14 07:01 RBC 3.23 L (3.80-5.40) m/uL Hgb 11.0 L (11.4-16.0) gm/dL Hct 32.9 L (34.0-46.0) % MCV 101.9 H (80.0-100.0) fL Carbon Dioxide (22-30) mmol/L Glucose (74-99) mg/dL POC Glucose (mg/dL) 147 H 143 H (70-110) mg/dL Calcium (8.4-10.2) mg/dL 12/05/22 Range/Units 07:01 RBC (3.80-5.40) m/uL Hgb (11.4-16.0) gm/dL Hct (34.0-46.0) % MCV (80.0-100.0) fL Carbon Dioxide 31 H (22-30) mmol/L Glucose 117 H (74-99) mg/dL POC Glucose (mg/dL) (70-110) mg/dL Calcium 7.6 L (8.4-10.2) mg/dL Assessment and Plan Assessment: Post op Day 3: Revision posteriolateral fusion L3-S1 with Removal of hardware L4-S1 Surgical Intervention was crash closed due to Ventricular fibrillation arrest 1. s/p L4-S1 decompression and fusion 2. Adjacent segment disease L3-L4 3. Pseudoarthrosis L4-S1 4.Bilateral lower extremity radiculopathy 5. L3-Pelvis spondylosis, spondylolisthesis and stenosis Plan: -Appreciate pmo consultant and team management. -Activity: Ambulate QID, OOB all meals, up and about, limit lifting bending twisting to less than 5 lbs. Use walker or cane if needed for stability. -Daily PT/OT, increase ambulation strength and balance. -Pain control: Adequate at this time -Meds: reviewed -GI ppx: senna, Miralax -DVT PPX: per medicine -Hygiene: Shower today. Maintain dressing clean and dry. Meticulous cleaning after BMs away from the incision site -Drains: Maintain for now. DC later today pending out put and PT -Encourage IS 10x/hr -Dispo: pending *I reviewed and discussed this case with my attending Dr. Nova, whom has reviewed this chart and films and is in agreement with assessment and plan of care as outlined above. I have personally seen and examined the patient, performed the documentation and the assessment and plan as written. Number of minutes spent on the visit: 10m.
[2022-12-05] MEDS: PANTOPRAZOLE 40 MG/10 ML VIAL IV SCH (09:01)
[2022-12-05] MEDS: METOPROLOL SUCCINATE (ER) 25 MG TAB.ER.24H PO SCH (09:02)
[2022-12-05] MEDS: CLOPIDOGREL 75 MG TAB PO SCH (09:02)
[2022-12-05] MEDS: ATORVASTATIN 80 MG TAB PO SCH (09:02)
[2022-12-05] MEDS: PREGABALIN 75 MG CAP PO SCH ×3 (09:02→21:04)
[2022-12-05] MEDS: HEPARIN SODIUM,PORCINE/PF 5,000 UNIT/0.5 ML SYRINGE SQ SCH ×3 (09:02→23:12)
[2022-12-05] MEDS: ASPIRIN 81 MG PO SCH (09:09)
--- NOTE | 2022-12-05 09:23 | P.PN ---
Subjective Progress Note Date: 12/05/22 ACS The patient is a pleasant 62-year-old female patient with a past medical history significant for coronary artery disease with previous stenting of the LAD as well as hypertension and dyslipidemia and history of TIA/CVA the patient sees Dr. Dorantes irregularly was admitted to the hospital to undergo low back surgery. She was admitted to undergo revision to her lumbar vertebrae. We consulted to see the patient for further evaluation of cardiac arrhythmia. Apparently the patient during the surgery she did have an episode of "ventricular tachycardia". The details are unavailable and there is no documentation of the rhythm strip in the computer. That was followed by giving the patient epinephrine. The patient apparently converted to normal sinus mechanism. Again no more details available and no rhythm strip available at this point. The patient after that was brought to the intensive care unit. Currently she is intubated. She underwent a workup including troponin came in to be mildly abnormal with the first set and we are in process of obtaining 2 more sets of serial cardiac enzymes. The EKG showed sinus rhythm with no significant ST or T-wave abnormalities. The patient is known to have CAD with prior stenting of the LAD with the last heart catheterization in 2020 showing patent stent in the LAD with intermediate disease involving the diagonal branch. That was treated medically. The patient also underwent further workup including CBC and BMP and that came in to be unremarkable a TSH also was ordered. Limited echo was performed and we are in process of getting the report at this point. She is in process also to be extubated later on today. Currently she is hemodynamically stable and not on any vasopressors. This point I would continue the current medical regimen. Consider putting the patient on dual antiplatelet therapies is okay from the surgical standpoint of view. Consider putting the patient on beta danish. Follow-up on the echo. December [id number] The patient was seen and evaluated today. She was extubated yesterday. She is not having any chest pain or chest discomfort this morning. Hemodynamically she is stable. She underwent an echo which revealed normal left ventricular systolic function was no evidence of any wall motion abnormalities. She was ruled in for acute coronary event with troponin elevation. The EKG did not show any ischemic ST or T-wave abnormalities noted. The elevation of the troponin could be related to acute coronary syndrome related to severe CAD and also could be related to hypotension during the procedure. At this point she is on heparin IV and she is also on dual antiplatelet therapy as well as statin. I would advise proceeding with coronary angiogram. 12/05 Yesterday, patient underwent cardiac catheterization that revealed no significant disease in the proximal RCA that was stented. A branch of RCA has a 60-70% narrowing. Major diagonal has a 60-70% narrowing. LAD widely patent. Left main and circumflex are free of disease. Patient to be on dual antiplatelet therapy with aspirin and Plavix. Patient is able to undergo surgical intervention if orthopedic spine would like to pursue this knowing patient is currently on Plavix. Echocardiogram reveals EF of 50-55%, mild concentric left ventricular hypertrophy The examination is remarkable for regular rhythm with diminished breathing sounds bilaterally and no lower except i extremity s edema noted Assessment Status post back surgery Cardiac arrhythmia during the surgery in the term of "ventricular fibrillation" Evidence of myocardial injury with no evidence of ischemia clinically or by EKG or by echocardiogram History of CAD with prior revascularization Hypertension Dyslipidemia Plan Continue the patient on dual antiplatelet therapy as well as statin Cardiac catheterization failed to reveal progression of disease. Discussed case with orthopedic spine the patient did not require stenting and could proceed with additional surgery. Cardiology we will sign off and follow on an as-needed basis. Please reconsult for any new concerns. Nurse practitioner note has been reviewed, I agree with the documented findings and plan of care. Patient was seen and examined. Objective - Vital Signs Vital signs: Vital Signs Temp 98.3 F 12/05/22 03:35 Pulse 66 12/05/22 03:35 Resp 18 12/05/22 03:35 BP 116/60 12/05/22 03:35 Pulse Ox 94 L 12/05/22 03:35 FiO2 40 12/03/22 09:28 Intake & Output 12/04/22 12/04/22 12/05/22 06:59 18:59 06:59 Intake Total 1246.833 732.508 Output Total 1065 325 880 Balance 181.833 407.508 -880 Intake: IV 586 515 LR 550 100 Pressure bag 36 15 Sodium Chloride 0.9% 1, 300 000 ml @ 75 mls/hr IV . [id number] [facility] Rx#:[id number] Intake, IV Titration 70.833 37.508 Amount Heparin Sod,Pork in 0.45% 70.833 37.508 NaCl 25,000 unit In 0.45 % NaCl 1 250ml.bag @ 11. 947 UNITS/KG/HR 10 mls/hr IV .Q24H [facility] Rx#: [id number] Oral 540 180 Lipid 50 Pressure bag 50 Output: Drainage 210 80 Back 210 80 Urine 855 325 800 Other: Voiding Method Indwelling Catheter Indwelling Catheter Bedpan # Voids 1 ABP, PAP, CO, CI - Last Documented Arterial Blood Pressure 117/51 - Labs CBC & Chem 7: 12/05/22 07:01 12/05/22 07:01 Labs: Abnormal Lab Results - Last 24 Hours (Table) 12/04/22 12/05/22 Range/Units 20:22 06:14 POC Glucose (mg/dL) 147 H 143 H (70-110) mg/dL
[2022-12-05 11:43] LABS: Glucose,Whole Blood 103 mg/dL (70-110)
--- NOTE | 2022-12-05 11:55 | P.PN ---
Subjective Progress Note Date: 12/05/22 62-year-old female who apparently initially presented to orthopedics, with back pain. The patient has a history of lumbar fusion 1999 with revision, and 2005. The patient was scheduled to have a L4-S1 decompression and fusion, and that procedure was scheduled for 12/02/2022. During the procedure, the patient had issues with low blood pressure, and ventricular fibrillation, and on 2 occasions, he did significant resuscitation. This included fluids, epinephrine, norepinephrine, etc. I was called by the anesthesiologist, Dr. French, and a bed was provided the patient in the intensive care unit. In addition to low back pain, chronic, the patient has a history of hypertension, urinary incontinence, hyperlipidemia, hypothyroidism, among other things. Currently, the patient's in the intensive care unit. Her ventilator settings include the volume assist control, rate 14, tidal volume 600, FiO2 50%, and PEEP of 5. Blood gases, show pO2 of 400, pCO2 45, and a pH is 7.31. These blood gases are consistent with a mild respiratory acidosis. The blood gases were done on a volume assist control rate of 10, and an FiO2 of 100%. Adjustments included increasing the rate 18, reducing the tidal volume to 450, and drop in the FiO2 down from 100%, to 50%, down to 40%. Currently, the patient's on propofol at 50 mcg/kg/m, norepinephrine at 1 mcg/m, and lactated Ringer's at 50 mL an hour. Cardiology has been consulted. She has 2 peripheral IVs, and an arterial line, placed by anesthesia. Other laboratory data includes a white count of 7.6, hemoglobin 12.4, hematocrit 37.2, and a platelet count of 148,000. Sodium 138, potassium 3.8, chlorides 104, CO2 22, BUN 11, creatinine 0.61. AST was 390, ALT was 141. Post surgical chest x-ray shows the endotracheal tube and NG tube to be in good locations. And there is a patchy infiltrate or atelectasis in the left lower lobe. Unfortunately, the entire procedure, was aborted, and the incision was closed according to the surgeon. Progress note dated 12/03/2022. This is a 62-year-old female who underwent an attempted orthopedic procedure yesterday, but unfortunately, during the case, developed some cardiac instability. The patient was brought back to the intensive care unit, because of hypotension, and ventricular fibrillation. Currently, she remains on the mechanical ventilator, with settings of volume assist control, rate 18, tidal volume 450, FiO2 40%, PEEP of 5. Arterial blood gases show pO2 106, pCO2 39, and a pH is 7.48. The patient is currently on lactated Ringer's at 50 mL an hour, Nimbex at 1 mcg/kg/m, and propofol 60 mcg/kg/m. Today, we will do a daily interruption of sedation, with a spontaneous breathing trial. White count 10.7, hemoglobin 12.7, hematocrit 36.5, and platelet count 275,000. Sodium 136, pota ssium 4.1, chlorides 101, CO2 28, BUN 11, creatinine 0.62. Chest x-ray looks rather good, with a minimal infiltrate at the left lower lobe. Progress note dated 12/04/2022. 62-year-old female who had an attempted orthopedic procedure done 2 days ago, and during the case, developed some cardiac instability, with hypotension, and ventricular fibrillation. The case was aborted, the patient was maintained on the ventilator, and brought back to the intensive. She was extubated yesterday. She went back to the catheterization laboratory today, and report isn't the catheterization was relatively normal. She's currently on 2 L of oxygen. She's getting lactated Ringer's at 50 mL an hour. When we saw her, she was on IV heparin. Clinically she is awake and alert. White count 7.8, hemoglobin 11.2, hematocrit 34, and platelet count 147,000. Coagulation studies were normal. Sodium, potassium, chloride, CO2, anion gap, BUN, and creatinine are all normal. Troponins were elevated. Chest x-ray shows some very minimal basilar atelectasis. The patient is seen today by 12/05/2022 in follow-up on the selective care unit. She is currently resting comfortably in bed. Awake and alert in no acute distress. She denies any worsening shortness of breath, cough or congestion. No chest pain. Maintaining good O2 saturations in the 90s on room air. Afebrile. Hemodynamically stable. White count 6.7. Hemoglobin 1.0. Platelets 159. Sodium 139. Potassium 3.9. Bicarb 31. BUN 9. Creatinine 0.64. She is continued on bronchodilators. Heparin for DVT prophylaxis. Objective - Vital Signs Vital signs: Vital Signs Temp 98.2 F 12/05/22 08:57 Pulse 64 12/05/22 08:57 Resp 16 12/05/22 08:57 BP 98/61 12/05/22 08:57 Pulse Ox 92 L 12/05/22 08:57 FiO2 40 12/03/22 09:28 Intake & Output 12/04/22 12/05/22 12/05/22 18:59 06:59 18:59 Intake Total 732.508 220 Output Total 325 880 Balance 407.508 -880 220 Intake: IV 515 LR 100 Pressure bag 15 Sodium Chloride 0.9% 1, 300 000 ml @ 75 mls/hr IV . [id number] [facility] Rx#:[id number] Intake, IV Titration 37.508 Amount Heparin Sod,Pork in 0.45% 37.508 NaCl 25,000 unit In 0.45 % NaCl 1 250ml.bag @ 11. 947 UNITS/KG/HR 10 mls/hr IV .Q24H [facility] Rx#: [id number] Oral 180 220 Output: Drainage 80 Back 80 Urine 325 800 Other: Voiding Method Indwelling Catheter Bedpan Bedpan # Voids 1 ABP, PAP, CO, CI - Last Documented Arterial Blood Pressure 117/51 - Exam GENERAL EXAM: Alert, pleasant 62-year-old female, on room air, comfortable in no apparent distress. HEAD: Normocephalic. EYES: Normal reaction of pupils, equal size. NOSE: Clear with pink turbinates. THROAT: No erythema or exudates. NECK: No masses, no JVD. CHEST: No chest wall deformity. LUNGS: Equal air entry with no crackles, wheeze, rhonchi or dullness. CVS: S1 and S2 normal with no audible murmur, regular rhythm. ABDOMEN: No hepatosplenomegaly, normal bowel sounds, no guarding or rigidity. SPINE: Dressing dry and intact, Hemovac remains in place SKIN: No rashes CENTRAL NERVOUS SYSTEM: No focal deficits, tone is normal in all 4 extremities. EXTREMITIES: There is no peripheral edema. No clubbing, no cyanosis. Peripheral pulses are intact. - Labs CBC & Chem 7: 12/05/22 07:01 12/05/22 07:01 Labs: Abnormal Lab Results - Last 24 Hours (Table) 12/04/22 12/05/22 12/05/22 Range/Units 20:22 06:14 07:01 RBC 3.23 L (3.80-5.40) m/uL Hgb 11.0 L (11.4-16.0) gm/dL Hct 32.9 L (34.0-46.0) % MCV 101.9 H (80.0-100.0) fL Carbon Dioxide (22-30) mmol/L Glucose (74-99) mg/dL POC Glucose (mg/dL) 147 H 143 H (70-110) mg/dL Calcium (8.4-10.2) mg/dL 12/05/22 Range/Units 07:01 RBC (3.80-5.40) m/uL Hgb (11.4-16.0) gm/dL Hct (34.0-46.0) % MCV (80.0-100.0) fL Carbon Dioxide 31 H (22-30) mmol/L Glucose 117 H (74-99) mg/dL POC Glucose (mg/dL) (70-110) mg/dL Calcium 7.6 L (8.4-10.2) mg/dL Assessment and Plan Assessment: Postop day #3, attempted, L4-S1 decompression and fusion for chronic back pain. Significant cardiopulmonary instability characterized by ventricular fibrillation, and hypotension, resulting in the premature termination of the procedure. Respiratory failure, requiring admission to the ICU, with an orally placed endotracheal tube, and mechanically ventilated, patient was successfully extubated on 12/03/2022. History of CAD, with previous PCI, and stent placement. Cardiac catheterization from 12/04/2022 revealed patent stent to the RCA. History of hyperlipidemia. History of hypertension. History of urinary incontinence. History of hypothyroidism. History of chronic tobacco use. Plan: The patient was seen and evaluated Stable and on room air We will see as needed I have personally seen and examined the patient, performed the documentation and the assessment and plan as written. Number of minutes spent on the visit: 10.
--- NOTE | 2022-12-05 15:08 | P.PN ---
Subjective Progress Note Date: 12/05/22 (delaye charting seen at 10am) Patient is a 62-year-old female with hypertension, dyslipidemia, coronary artery disease status post 6 stents, and fibromyalgia who initially presented for lumbar decompression and fusion L4 to S1. During the procedure the patient had low blood pressure and developed ventricular fibrillation on 2 separate occasions. This required resuscitation with IV fluids, epinephrine, and norepinephrine. She was subsequently admitted to the ICU. We were consulted for hypertensive management. Her procedure was aborted early due to the ventricular fibrillation and she did have a posterior lateral fusion of L3 to S1, removal of hardware L4 to S1. On arrival to the ICU she was requiring norepinephrine and was intubated. Pulmonary and cardiology were consulted. She underwent an echocardiogram which showed a preserved ejection fraction and no wall motion abnormality. Overnight on 12/02 she became agitated and was unable to ventilate due to biting on the tube and required Nimbex. Her Troponin maxed at 6.7 and she was started on a heparin gtt, plavix, and Aspirin. Imaging: Limited Echo with EF 50-55%, mild LVH, no wall motion abnormality Patient seen and examined at bedside. Per nursing she did not tolerate dilaudid well and was transitioned to morphine. Patient is upset and anxious about what all this means for her back and if it is going to be messed up forever. She denies chest pain, sob, and nausea. Vital signs reviewed General: nontoxic, no distress, appears at stated age Cardiovascular: S1S2 reg, no murmur, positive posterior tibial pulse bilateral, Lungs: CTA bilateral, no rhonchi, no rales , no accessory muscle use Abdominal: soft, nontender to palpation, no guarding, no appreciable organomegaly Ext: no gross muscle atrophy, no edema, no contractures Psych: sedated on vent, opens every to name, and moving all 4 extremities independently. Assessment: Patient is a 62-year-old female who initially presents presented for revision of her lumbar fusion. Intraoperatively she had a ventricular fib arrest which aborted quickly. Her spine was stabilized and the remainder of the procedure was aborted. Type II NSTEMI- cardiac cath 12/04 - no significant disease in the RCA, widely patent LAD, left main and cir free of significant disease Transaminitis, suspect ischemic HTN HLD CAD with hx of stents Thrombocytopenia, anticipated outcome, resolved Leukocytosis, resolved Imaging: Lumbar spine CT- fusion hardware with L3-S1 Data Review: Vitals reviewed from this morning. Laboratory analysis reviewed from this morning, significant for HgB 11 Plan: - Cardio note reviewed: continue Asa and plavix. Can proceed with additional surgery as needed as cath without significant disease, cardio signed off - Pulmonary note reviewed: will sign off - Metoprolol 25 mg daily, Lipitor 80 mg daily - will need repeat CBC in AM to assess Hgb given recent surgery and need for dual antiplatelet surgery, needs repeat renal function in renal function in - Repeat CMP in AM, had bmp this morning and need to re-eval liver enzymes - Add morphine 4 mg every 4 hours for pain control, currently at every 6 and patient is having wear off. DVT prophylaxis: Heparin SC This dictation was prepared using [employer] voice recognition software. Though every attempt is made to correct errors during during dictation some may still exist. Objective - Vital Signs Vital signs: Vital Signs Temp 98.3 F 12/05/22 11:13 Pulse 67 12/05/22 11:13 Resp 16 12/05/22 11:13 BP 94/56 12/05/22 11:13 Pulse Ox 93 L 12/05/22 11:13 FiO2 40 12/03/22 09:28 Intake & Output 12/04/22 12/05/22 12/05/22 18:59 06:59 18:59 Intake Total 732.508 220 Output Total 325 880 650 Balance 407.508 -880 -430 Intake: IV 515 LR 100 Pressure bag 15 Sodium Chloride 0.9% 1, 300 000 ml @ 75 mls/hr IV . [id number] [facility] Rx#:[id number] Intake, IV Titration 37.508 Amount Heparin Sod,Pork in 0.45% 37.508 NaCl 25,000 unit In 0.45 % NaCl 1 250ml.bag @ 11. 947 UNITS/KG/HR 10 mls/hr IV .Q24H [facility] Rx#: [id number] Oral 180 220 Output: Drainage 80 Back 80 Urine 325 800 650 Other: Voiding Method Indwelling Catheter Bedpan Bedpan # Voids 1 1 ABP, PAP, CO, CI - Last Documented Arterial Blood Pressure 117/51 - Labs CBC & Chem 7: 12/05/22 07:01 12/05/22 07:01 Labs: Abnormal Lab Results - Last 24 Hours (Table) 12/04/22 12/05/22 12/05/22 Range/Units 20:22 06:14 07:01 RBC 3.23 L (3.80-5.40) m/uL Hgb 11.0 L (11.4-16.0) gm/dL Hct 32.9 L (34.0-46.0) % MCV 101.9 H (80.0-100.0) fL Carbon Dioxide (22-30) mmol/L Glucose (74-99) mg/dL POC Glucose (mg/dL) 147 H 143 H (70-110) mg/dL Calcium (8.4-10.2) mg/dL 12/05/22 Range/Units 07:01 RBC (3.80-5.40) m/uL Hgb (11.4-16.0) gm/dL Hct (34.0-46.0) % MCV (80.0-100.0) fL Carbon Dioxide 31 H (22-30) mmol/L Glucose 117 H (74-99) mg/dL POC Glucose (mg/dL) (70-110) mg/dL Calcium 7.6 L (8.4-10.2) mg/dL
[2022-12-05 15:57] LABS: Glucose,Whole Blood 74 mg/dL (70-110)
[2022-12-05] MEDS: MORPHINE SULFATE 2 MG/ML SYRINGE IVP PRN (16:14)
[2022-12-05 19:58] LABS: Glucose,Whole Blood 127 mg/dL (70-110)
[2022-12-05] MEDS: QUEtiapine 400 MG TAB PO SCH (21:04)
[2022-12-06] MEDS: MORPHINE SULFATE 4 MG/ML SYRINGE IVP PRN (03:05)
[2022-12-06 06:02] LABS: Glucose,Whole Blood 114 mg/dL (70-110)
[2022-12-06] MEDS: LEVOTHYROXINE 125 MCG TAB PO SCH (06:26)
[2022-12-06] MEDS: HYDROcodone/APAP 7.5-325MG 1 EACH TAB PO PRN ×5 (06:26→23:58)
[2022-12-06 08:09] LABS: HCT 33.1 % (34.0-46.0); MCH 33.3 pg (25.0-35.0); MCHC 33.2 g/dL (31.0-37.0); MCV 100.4 fL (80.0-100.0); Platelet Count 175 k/uL (150-450); RDW 13.1 % (11.5-15.5); WBC 6.7 k/uL (3.8-10.6)
[2022-12-06 08:28] LABS: ALT 50 U/L (4-34); AST 52 U/L (14-36); African American GFR (CKD) >90 (>60 ml/min/1.73 sqM); Alkaline Phosphatase 86 U/L (38-126); Anion Gap 0 mmol/L; Blood Urea Nitrogen 8 mg/dL (7-17); Calcium 7.8 mg/dL (8.4-10.2); Carbon Dioxide 33 mmol/L (22-30); Chloride 104 mmol/L (98-107); Glucose 113 mg/dL (74-99); Non-African American GFR(CKD) >90 (>60 ml/min/1.73 sqM); Potassium 3.6 mmol/L (3.5-5.1); Sodium 137 mmol/L (137-145); Total Bilirubin 0.6 mg/dL (0.2-1.3); Total Protein 5.3 g/dL (6.3-8.2)
--- NOTE | 2022-12-06 09:15 | P.PN ---
Subjective Progress Note Date: 12/06/22 Principal diagnosis: Status post hardware removal L4-S1, posterolateral fusion L3-S1 Patient is evaluated today at bedside, she is sleeping in her hospital bed. Patient is very lethargic and difficult to wake up at bedside. She does answer most my questions but falls back to sleep. Patient admits to back pain, mainly with movement. She denies chest pain or shortness of breath. She denies any bowel or bladder incontinence. Discussed with nursing at bedside, the patient did have a medication readjusted yesterday. She was very mobile yesterday but then an increasing amount of medication due to pain she's been very fatigued since. Objective - Vital Signs Vital signs: Vital Signs Temp 98.1 F 12/06/22 08:05 Pulse 61 12/06/22 08:05 Resp 16 12/06/22 08:05 BP 107/61 12/06/22 08:05 Pulse Ox 93 L 12/06/22 08:12 FiO2 40 12/03/22 09:28 Intake & Output 12/05/22 12/06/22 12/06/22 18:59 06:59 18:59 Intake Total 460 5 Output Total 650 Balance -190 5 Intake: IV 5 Invasive Line 5 5 Oral 460 Output: Urine 650 Other: Voiding Method Bedpan Toilet Toilet # Voids 1 1 ABP, PAP, CO, CI - Last Documented Arterial Blood Pressure 117/51 - Exam Gen: AOx3, NAD VSS stable at this time Integument: Postoperative dressing is in good position and condition. The drain was removed yesterday. Dressing change on 12/07/2022 Palpation: Tenderness with palpation of the midline and paraspinal region of the lumbar spine ROM: Full range of motion in all major muscle groups of the bilateral upper and lower extremity Sensory Exam: Senory exam to light touch is intact C5-T1 Senosry exam to light touch is intact L2-S1 Motor: 45 strength appreciated in the bilateral lower extremities with hip flexion, extension, knee flexion, plantar flexion, dorsiflexion, EHL, FHL Reflexes: 2/4 in all UE and LE Negative Charissa's, Babinski, clonus - Labs CBC & Chem 7: 12/06/22 07:52 12/06/22 07:52 Labs: Abnormal Lab Results - Last 24 Hours (Table) 12/05/22 12/06/22 12/06/22 Range/Units 19:57 06:00 07:52 RBC 3.30 L (3.80-5.40) m/uL Hgb 11.0 L (11.4-16.0) gm/dL Hct 33.1 L (34.0-46.0) % MCV 100.4 H (80.0-100.0) fL Carbon Dioxide (22-30) mmol/L Glucose (74-99) mg/dL POC Glucose (mg/dL) 127 H 114 H (70-110) mg/dL Calcium (8.4-10.2) mg/dL AST (14-36) U/L ALT (4-34) U/L Total Protein (6.3-8.2) g/dL Albumin (3.5-5.0) g/dL 12/06/22 Range/Units 07:52 RBC (3.80-5.40) m/uL Hgb (11.4-16.0) gm/dL Hct (34.0-46.0) % MCV (80.0-100.0) fL Carbon Dioxide 33 H (22-30) mmol/L Glucose 113 H (74-99) mg/dL POC Glucose (mg/dL) (70-110) mg/dL Calcium 7.8 L (8.4-10.2) mg/dL AST 52 H (14-36) U/L ALT 50 H (4-34) U/L Total Protein 5.3 L (6.3-8.2) g/dL Albumin 3.0 L (3.5-5.0) g/dL Assessment and Plan Assessment: Postoperative day #4 status post hardware removal L4-S1, revision posterior lateral fusion L3-S1 Type II NSTEMI Coronary artery disease Plan: Pain control, will adjust both IV and oral medications at this time DVT prophylaxis, patient has been resumed on Plavix Wound care, continue dressing. Plan for dressing change on 12/07/2022 LSO brace is in room, patient needs to be in brace when up and ambulating. Weight-bear as tolerated, utilize walker all times Encourage incentive spirometer Daily PT/OT Other medical esthetician recommendations We will continue to follow during his inpatient stay Time with Patient: Less than 30
[2022-12-06] MEDS: PANTOPRAZOLE 40 MG/10 ML VIAL IV SCH (10:50)
[2022-12-06] MEDS: ASPIRIN 81 MG PO SCH (10:50)
[2022-12-06] MEDS: PREGABALIN 75 MG CAP PO SCH ×3 (10:50→20:08)
[2022-12-06] MEDS: METOPROLOL SUCCINATE (ER) 25 MG TAB.ER.24H PO SCH (10:50)
[2022-12-06] MEDS: CLOPIDOGREL 75 MG TAB PO SCH (10:50)
[2022-12-06] MEDS: HEPARIN SODIUM,PORCINE/PF 5,000 UNIT/0.5 ML SYRINGE SQ SCH ×3 (10:50→22:56)
[2022-12-06] MEDS: ATORVASTATIN 80 MG TAB PO SCH (10:50)
[2022-12-06] MEDS: MORPHINE SULFATE 2 MG/ML SYRINGE IVP PRN ×3 (10:50→22:56)
--- NOTE | 2022-12-06 11:11 | P.PN ---
Subjective Progress Note Date: 12/06/22 Patient is a 62-year-old female with hypertension, dyslipidemia, coronary artery disease status post 6 stents, and fibromyalgia who initially presented for lumbar decompression and fusion L4 to S1. During the procedure the patient had low blood pressure and developed ventricular fibrillation on 2 separate occasions. This required resuscitation with IV fluids, epinephrine, and norepinephrine. She was subsequently admitted to the ICU. We were consulted for hypertensive management. Her procedure was aborted early due to the ventricular fibrillation and she did have a posterior lateral fusion of L3 to S1, removal of hardware L4 to S1. On arrival to the ICU she was requiring norepinephrine and was intubated. Pulmonary and cardiology were consulted. She underwent an echocardiogram which showed a preserved ejection fraction and no wall motion abnormality. Overnight on 12/02 she became agitated and was unable to ventilate due to biting on the tube and required Nimbex. Her Troponin maxed at 6.7 and she was started on a heparin gtt, plavix, and Aspirin. Patient now off of heparin drip. Imaging: Limited Echo with EF 50-55%, mild LVH, no wall motion abnormality Lumbar spine CT- fusion hardware with L3-S1 Patient seen and examined at bedside. No acute events overnight. Patient is drowsy this morning, received her hydrocodone on earlier in the morning. She denies any shortness of breath, chest pain, abdominal pain. She claims that she is ambulating. She denies any urinary or bowel complaints. Vital signs reviewed General: nontoxic, no distress, appears at stated age, drowsy Cardiovascular: S1S2 reg, systolic murmur, positive posterior tibial pulse bilateral, Lungs: CTA bilateral, no rhonchi, no rales , no accessory muscle use, supplemental oxygen Abdominal: soft, nontender to palpation, no guarding, no appreciable organomegaly Ext: no gross muscle atrophy, no edema, no contractures Psych: Oriented 3, drowsy, cooperative Assessment: Patient is a 62-year-old female who initially presented for revision of her lumbar fusion. Intraoperatively she had a ventricular fib arrest which aborted quickly. Her spine was stabilized and the remainder of the procedure was aborted. Intraoperative ventricular tachycardia, Type II NSTEMI- cardiac cath 12/04 - no significant disease in the RCA, widely patent LAD, left main and cir free of significant disease Transaminitis, suspect ischemic, improving HTN HLD CAD with hx of stents Status post removal of L4 to S1, posterior lateral fusion L3 to S1 Mild macrocytic anemia of 11.0, stable Metabolic alkalosis, bicarb 33 Thrombocytopenia, anticipated outcome, resolved Leukocytosis, resolved Imaging: No new imaging Data Review: Vitals reviewed from this morning. Currently on 2 L nasal cannula saturating at 90% Laboratory analysis reviewed from this morning, significant for HgB 11, bicarb 33, AST 52, ALT 50 Plan: - Surgery note reviewed: In for dressing change tomorrow, IV and oral pain medications adjusted - On IV morphine 2 mg every 6 hours for severe breakthrough pain, received 1 dose this morning - Metabolic alkalosis likely inciting contraction, reduced oral intake - order CBC continue to monitor for anemia, and BMP to monitor for metabolic alkalosis DVT prophylaxis: Heparin SC Thank you for allowing us to participate in the care of this pleasant patient. Do not hesitate to contact us with questions. Someone can be reached from the [facility] hospitalist group all hours of the day at [phone] or via [facility] serve. Objective - Vital Signs Vital signs: Vital Signs Temp 98.1 F 12/06/22 08:05 Pulse 61 12/06/22 08:05 Resp 16 12/06/22 08:05 BP 107/61 12/06/22 08:05 Pulse Ox 93 L 12/06/22 08:12 FiO2 40 12/03/22 09:28 Intake & Output 12/05/22 12/06/22 12/06/22 18:59 06:59 18:59 Intake Total 460 245 Output Total 650 650 Balance -190 -405 Intake: IV 5 Invasive Line 5 5 Oral 460 240 Output: Urine 650 650 Other: Voiding Method Bedpan Toilet Toilet # Voids 1 1 1 ABP, PAP, CO, CI - Last Documented Arterial Blood Pressure 117/51 - Labs CBC & Chem 7: 12/06/22 07:52 12/06/22 07:52 Labs: Abnormal Lab Results - Last 24 Hours (Table) 12/05/22 12/06/22 12/06/22 Range/Units 19:57 06:00 07:52 RBC 3.30 L (3.80-5.40) m/uL Hgb 11.0 L (11.4-16.0) gm/dL Hct 33.1 L (34.0-46.0) % MCV 100.4 H (80.0-100.0) fL Carbon Dioxide (22-30) mmol/L Glucose (74-99) mg/dL POC Glucose (mg/dL) 127 H 114 H (70-110) mg/dL Calcium (8.4-10.2) mg/dL AST (14-36) U/L ALT (4-34) U/L Total Protein (6.3-8.2) g/dL Albumin (3.5-5.0) g/dL 12/06/22 Range/Units 07:52 RBC (3.80-5.40) m/uL Hgb (11.4-16.0) gm/dL Hct (34.0-46.0) % MCV (80.0-100.0) fL Carbon Dioxide 33 H (22-30) mmol/L Glucose 113 H (74-99) mg/dL POC Glucose (mg/dL) (70-110) mg/dL Calcium 7.8 L (8.4-10.2) mg/dL AST 52 H (14-36) U/L ALT 50 H (4-34) U/L Total Protein 5.3 L (6.3-8.2) g/dL Albumin 3.0 L (3.5-5.0) g/dL
[2022-12-06 11:36] LABS: Glucose,Whole Blood 118 mg/dL (70-110)
--- NOTE | 2022-12-06 13:25 | P.PN ---
Subjective Progress Note Date: 12/06/22 62-year-old female who apparently initially presented to orthopedics, with back pain. The patient has a history of lumbar fusion 1999 with revision, and 2005. The patient was scheduled to have a L4-S1 decompression and fusion, and that procedure was scheduled for 12/02/2022. During the procedure, the patient had issues with low blood pressure, and ventricular fibrillation, and on 2 occasions, he did significant resuscitation. This included fluids, epinephrine, norepinephrine, etc. I was called by the anesthesiologist, Dr. French, and a bed was provided the patient in the intensive care unit. In addition to low back pain, chronic, the patient has a history of hypertension, urinary incontinence, hyperlipidemia, hypothyroidism, among other things. Currently, the patient's in the intensive care unit. Her ventilator settings include the volume assist control, rate 14, tidal volume 600, FiO2 50%, and PEEP of 5. Blood gases, show pO2 of 400, pCO2 45, and a pH is 7.31. These blood gases are consistent with a mild respiratory acidosis. The blood gases were done on a volume assist control rate of 10, and an FiO2 of 100%. Adjustments included increasing the rate 18, reducing the tidal volume to 450, and drop in the FiO2 down from 100%, to 50%, down to 40%. Currently, the patient's on propofol at 50 mcg/kg/m, norepinephrine at 1 mcg/m, and lactated Ringer's at 50 mL an hour. Cardiology has been consulted. She has 2 peripheral IVs, and an arterial line, placed by anesthesia. Other laboratory data includes a white count of 7.6, hemoglobin 12.4, hematocrit 37.2, and a platelet count of 148,000. Sodium 138, potassium 3.8, chlorides 104, CO2 22, BUN 11, creatinine 0.61. AST was 390, ALT was 141. Post surgical chest x-ray shows the endotracheal tube and NG tube to be in good locations. And there is a patchy infiltrate or atelectasis in the left lower lobe. Unfortunately, the entire procedure, was aborted, and the incision was closed according to the surgeon. Progress note dated 12/03/2022. This is a 62-year-old female who underwent an attempted orthopedic procedure yesterday, but unfortunately, during the case, developed some cardiac instability. The patient was brought back to the intensive care unit, because of hypotension, and ventricular fibrillation. Currently, she remains on the mechanical ventilator, with settings of volume assist control, rate 18, tidal volume 450, FiO2 40%, PEEP of 5. Arterial blood gases show pO2 106, pCO2 39, and a pH is 7.48. The patient is currently on lactated Ringer's at 50 mL an hour, Nimbex at 1 mcg/kg/m, and propofol 60 mcg/kg/m. Today, we will do a daily interruption of sedation, with a spontaneous breathing trial. White count 10.7, hemoglobin 12.7, hematocrit 36.5, and platelet count 275,000. Sodium 136, pota ssium 4.1, chlorides 101, CO2 28, BUN 11, creatinine 0.62. Chest x-ray looks rather good, with a minimal infiltrate at the left lower lobe. Progress note dated 12/04/2022. 62-year-old female who had an attempted orthopedic procedure done 2 days ago, and during the case, developed some cardiac instability, with hypotension, and ventricular fibrillation. The case was aborted, the patient was maintained on the ventilator, and brought back to the intensive. She was extubated yesterday. She went back to the catheterization laboratory today, and report isn't the catheterization was relatively normal. She's currently on 2 L of oxygen. She's getting lactated Ringer's at 50 mL an hour. When we saw her, she was on IV heparin. Clinically she is awake and alert. White count 7.8, hemoglobin 11.2, hematocrit 34, and platelet count 147,000. Coagulation studies were normal. Sodium, potassium, chloride, CO2, anion gap, BUN, and creatinine are all normal. Troponins were elevated. Chest x-ray shows some very minimal basilar atelectasis. The patient is seen today by 12/05/2022 in follow-up on the selective care unit. She is currently resting comfortably in bed. Awake and alert in no acute distress. She denies any worsening shortness of breath, cough or congestion. No chest pain. Maintaining good O2 saturations in the 90s on room air. Afebrile. Hemodynamically stable. White count 6.7. Hemoglobin 1.0. Platelets 159. Sodium 139. Potassium 3.9. Bicarb 31. BUN 9. Creatinine 0.64. She is continued on bronchodilators. Heparin for DVT prophylaxis. The patient is seen today 12/06/2022 in follow-up on the selective care unit. She is awake and alert in no acute distress. Resting comfortably in bed. Maintaining good O2 saturations in the 90s on room air. No IV fluids. She is having issues with pain control versus lethargy and finding a balance. Medications are being adjusted. She is to be up ambulating in her room with a walker with an LSO brace in place. She is status post hardware removal from L4 to S1, revision of the posterior lateral fusion L3 to S1. Postoperative day #4. He remains dry and intact. Count 6.7. Hemoglobin 11.0. Platelets 175. Sodium 137. Potassium 3.6. BUN 8. Creatinine 0.56. Glucose 113. AST 52. ALT 50. Remains on heparin for DVT prophylaxis. Objective - Vital Signs Vital signs: Vital Signs Temp 98.3 F 12/06/22 12:02 Pulse 63 12/06/22 12:02 Resp 16 12/06/22 12:02 BP 102/61 12/06/22 12:02 Pulse Ox 93 L 12/06/22 12:02 FiO2 40 12/03/22 09:28 Intake & Output 12/05/22 12/06/22 12/06/22 18:59 06:59 18:59 Intake Total 460 485 Output Total 650 650 Balance -190 -165 Intake: IV 5 Invasive Line 5 5 Oral 460 480 Output: Urine 650 650 Other: Voiding Method Bedpan Toilet Toilet # Voids 1 1 1 ABP, PAP, CO, CI - Last Documented Arterial Blood Pressure 117/51 - Exam GENERAL EXAM: Alert, 62-year-old female, on room air, comfortable in no apparent distress. HEAD: Normocephalic. EYES: Normal reaction of pupils, equal size. NOSE: Clear with pink turbinates. THROAT: No erythema or exudates. NECK: No masses, no JVD. CHEST: No chest wall deformity. LUNGS: Equal air entry with no crackles, wheeze, rhonchi or dullness. CVS: S1 and S2 normal with no audible murmur, regular rhythm. ABDOMEN: No hepatosplenomegaly, normal bowel sounds, no guarding or rigidity. SPINE: Dressing dry and intact SKIN: No rashes CENTRAL NERVOUS SYSTEM: No focal deficits, tone is normal in all 4 extremities. EXTREMITIES: There is no peripheral edema. No clubbing, no cyanosis. Peripheral pulses are intact. - Labs CBC & Chem 7: 12/06/22 07:52 12/06/22 07:52 Labs: Abnormal Lab Results - Last 24 Hours (Table) 12/05/22 12/06/22 12/06/22 Range/Units 19:57 06:00 07:52 RBC 3.30 L (3.80-5.40) m/uL Hgb 11.0 L (11.4-16.0) gm/dL Hct 33.1 L (34.0-46.0) % MCV 100.4 H (80.0-100.0) fL Carbon Dioxide (22-30) mmol/L Glucose (74-99) mg/dL POC Glucose (mg/dL) 127 H 114 H (70-110) mg/dL Calcium (8.4-10.2) mg/dL AST (14-36) U/L ALT (4-34) U/L Total Protein (6.3-8.2) g/dL Albumin (3.5-5.0) g/dL 12/06/22 12/06/22 Range/Units 07:52 11:35 RBC (3.80-5.40) m/uL Hgb (11.4-16.0) gm/dL Hct (34.0-46.0) % MCV (80.0-100.0) fL Carbon Dioxide 33 H (22-30) mmol/L Glucose 113 H (74-99) mg/dL POC Glucose (mg/dL) 118 H (70-110) mg/dL Calcium 7.8 L (8.4-10.2) mg/dL AST 52 H (14-36) U/L ALT 50 H (4-34) U/L Total Protein 5.3 L (6.3-8.2) g/dL Albumin 3.0 L (3.5-5.0) g/dL Assessment and Plan Assessment: Postop day #4, attempted, L4-S1 decompression and fusion for chronic back pain. Significant cardiopulmonary instability characterized by ventricular fibrillation, and hypotension, resulting in the premature termination of the procedure. Respiratory failure, requiring admission to the ICU, with an orally placed endotracheal tube, and mechanically ventilated, patient was successfully extubated on 12/03/2022. Stable and room air. History of CAD, with previous PCI, and stent placement. Cardiac catheterization from 12/04/2022 revealed patent stent to the RCA. History of hyperlipidemia. History of hypertension. History of urinary incontinence. History of hypothyroidism. History of chronic tobacco use. Plan: The patient was seen and evaluated Labs and medications reviewed Stable and on room air Increase her activity as tolerated To wear LSO brace while up and assisted with a walker We will see as needed I have personally seen and examined the patient, performed the documentation and the assessment and plan as written. Number of minutes spent on the visit: 10.
[2022-12-06 16:40] LABS: Glucose,Whole Blood 121 mg/dL (70-110)
[2022-12-06 20:04] LABS: Glucose,Whole Blood 83 mg/dL (70-110)
[2022-12-06] MEDS: CYCLOBENZAPRINE 10 MG TAB PO PRN (20:08)
[2022-12-06] MEDS: QUEtiapine 400 MG TAB PO SCH (20:08)
[2022-12-07] MEDS: MORPHINE SULFATE 2 MG/ML SYRINGE IVP PRN ×3 (05:18→17:59)
[2022-12-07] MEDS: HYDROcodone/APAP 7.5-325MG 1 EACH TAB PO PRN ×7 (06:08→21:41)
[2022-12-07] MEDS: LEVOTHYROXINE 125 MCG TAB PO SCH (06:08)
[2022-12-07 06:15] LABS: Glucose,Whole Blood 145 mg/dL (70-110)
[2022-12-07] MEDS: METOPROLOL SUCCINATE (ER) 25 MG TAB.ER.24H PO SCH (07:23)
[2022-12-07] MEDS: PREGABALIN 75 MG CAP PO SCH ×3 (07:23→19:45)
[2022-12-07] MEDS: ASPIRIN 81 MG PO SCH (07:23)
[2022-12-07] MEDS: CLOPIDOGREL 75 MG TAB PO SCH (07:23)
[2022-12-07] MEDS: PANTOPRAZOLE 40 MG/10 ML VIAL IV SCH (07:23)
[2022-12-07] MEDS: HEPARIN SODIUM,PORCINE/PF 5,000 UNIT/0.5 ML SYRINGE SQ SCH ×2 (07:24→15:05)
[2022-12-07] MEDS: ATORVASTATIN 80 MG TAB PO SCH (07:24)
[2022-12-07 08:34] LABS: Basophils % (A) 0 %; Eosinophils # (A) 0.3 k/uL (0-0.7); Eosinophils % (A) 5 %; HCT 34.2 % (34.0-46.0); HGB 11.3 gm/dL (11.4-16.0); Lymphocytes # (A) 1.7 k/uL (1.0-4.8); Lymphocytes % (A) 25 %; MCH 33.9 pg (25.0-35.0); MCV 102.8 fL (80.0-100.0); Macrocytosis Slight; Mean Platelet Volume 8.8; Monocytes # (A) 0.4 k/uL (0-1.0); Monocytes % (A) 7 %; Neutrophils # (A) 4.1 k/uL (1.3-7.7); Neutrophils % (A) 61 %; Platelet Count 199 k/uL (150-450); RBC 3.33 m/uL (3.80-5.40); RDW 12.8 % (11.5-15.5); WBC 6.7 k/uL (3.8-10.6)
[2022-12-07 09:17] LABS: African American GFR (CKD) >90 (>60 ml/min/1.73 sqM); Anion Gap 7 mmol/L; Blood Urea Nitrogen 8 mg/dL (7-17); Carbon Dioxide 27 mmol/L (22-30); Chloride 103 mmol/L (98-107); Glucose 136 mg/dL (74-99); Non-African American GFR(CKD) >90 (>60 ml/min/1.73 sqM); Potassium 3.6 mmol/L (3.5-5.1); Sodium 137 mmol/L (137-145)
[2022-12-07 11:36] LABS: Glucose,Whole Blood 115 mg/dL (70-110)
[2022-12-07] MEDS ORDERED: LACTULOSE 20 GM/30 ML CUP PO PRN (11:44)
[2022-12-07] MEDS ORDERED: MAGNESIUM HYDROXIDE 2,400 MG/10 ML CUP PO PRN (11:44)
--- NOTE | 2022-12-07 12:00 | P.PN ---
Subjective Progress Note Date: 12/07/22 Hospital Course: Patient is a 62-year-old female with hypertension, dyslipidemia, coronary artery disease status post 6 stents, and fibromyalgia who initially presented for lumbar decompression and fusion L4 to S1. During the procedure the patient had low blood pressure and developed ventricular arrhythmia on 2 separate occasions. This required resuscitation with IV fluids, epinephrine, and norepinephrine. She was subsequently admitted to the ICU. Her procedure was aborted early due to the arrhythmia and she did have a posterior lateral fusion of L3 to S1, removal of hardware L4 to S1. On arrival to the ICU she was requiring norepinephrine and was intubated. Pulmonary and cardiology were consulted. She underwent an echocardiogram which showed a preserved ejection fraction and no wall motion abnormality. Overnight on 12/02 she became agitated and was unable to ventilate due to biting on the tube and required Nimbex. Her Troponin maxed at 6.7 and she was started on a heparin gtt, plavix, and Aspirin. Cardiac cath 3/2 - no significant disease in the RCA, widely patent LAD, left main and cir free of significant disease. Patient now off of heparin drip. Per cardiology and pulmonology, patient can proceed with further surgery if needed. [facility]ospine still following. Pertinent Imaging: Limited Echo with EF 50-55%, mild LVH, no wall motion abnormality Lumbar spine CT- fusion hardware with L3-S1 Cardiac cath / - no significant disease in the RCA, widely patent LAD, left main and cir free of significant disease. Subjective: Patient seen and examined at bedside. No acute events overnight. She claims that she has significant back pain not manageable with medications. She denies any chest pain, shortness of breath, abdominal pain, nausea, vomiting, diarrhea, constipation, or urinary complaints. She claims that she is ambulating well. Pertinent positives and negatives as discussed above, a complete review of systems was performed and all other systems are negative. Vitals Signs Reviewed. General: nontoxic, no distress, appears at stated age Derm: warm, dry, back dressing appears dry, clean, intact Head: atraumatic, normocephalic, symmetric Eyes: EOMI, no lid lag, anicteric sclera Mouth: no lip lesion, mucus membranes moist Cardiovascular: S1S2 reg, no murmur Lungs: CTA bilateral, no rhonchi, no rales , no accessory muscle use Abdominal: soft, nontender to palpation, no guarding, no appreciable organomegaly Ext: no gross muscle atrophy, no edema, no contractures Neuro: CN II-XI grossly intact, no focal neuro deficits Psych: Alert, oriented, appropriate affect Data Reviewed Today: Pertinent Labs: Hemoglobin 11.3, blood sugars range from 83-145 Assessment and Plan: Active: Acute on chronic lower back pain Status post removal of L4 to S1, posterior lateral fusion L3 to S1 Mild macrocytic anemia - On 2 mg IV morphine every 6 hours as needed for breakthrough pain, required 1 dose today - Also on oral norco, Lyrica 150 mg daily, cyclobenzaprine 10 mg when necessary - Cardiology signed off, patient can proceed with further surgery if needed - Pulmonology note reviewed from 12/06: Continue current management, patient to be seen on an as-needed basis - PT/OT, recommending subacute rehab as of 12/05 - Pending further recommendations from orthospine with regards to further interventions versus possible discharge - TSH, B12, folic acid levels ordered to evaluate for mild macrocytic anemia Resolved: Intraoperative ventricular arrhythmia Type II NSTEMI Ischemic hepatitis Metabolic alkalosis Chronic: CAD status post stent Hypertension Dyslipidemia DVT ppx: Subcu heparin Code status: Full code Anticipated discharge place: Likely subacute rehab Anticipated discharge time: Pending clinical course Objective - Vital Signs Vital signs: Vital Signs Temp 98.3 F 12/07/22 11:38 Pulse 65 12/07/22 11:38 Resp 16 12/07/22 11:38 BP 123/69 12/07/22 11:38 Pulse Ox 95 12/07/22 11:38 FiO2 21 12/07/22 08:16 Intake & Output 12/06/22 12/07/22 12/07/22 18:59 06:59 18:59 Intake Total 485 10 260 Output Total 650 Balance -165 10 260 Intake: IV 5 10 20 Invasive Line 5 5 Invasive Line 6 10 20 Oral 480 240 Output: Urine 650 Other: Voiding Method Toilet Toilet Toilet # Voids 1 1 ABP, PAP, CO, CI - Last Documented Arterial Blood Pressure 117/51 - Labs CBC & Chem 7: 12/07/22 07:53 12/07/22 07:53 Labs: Abnormal Lab Results - Last 24 Hours (Table) 12/06/22 12/07/22 12/07/22 Range/Units 16:30 06:14 07:53 RBC 3.33 L (3.80-5.40) m/uL Hgb 11.3 L (11.4-16.0) gm/dL MCV 102.8 H (80.0-100.0) fL Glucose (74-99) mg/dL POC Glucose (mg/dL) 121 H 145 H (70-110) mg/dL Calcium (8.4-10.2) mg/dL 12/07/22 12/07/22 Range/Units 07:53 11:29 RBC (3.80-5.40) m/uL Hgb (11.4-16.0) gm/dL MCV (80.0-100.0) fL Glucose 136 H (74-99) mg/dL POC Glucose (mg/dL) 115 H (70-110) mg/dL Calcium 8.0 L (8.4-10.2) mg/dL
--- NOTE | 2022-12-07 12:27 | P.PN ---
Subjective Progress Note Date: 12/07/22 Principal diagnosis: Status post hardware removal L4-S1, posterolateral fusion L3-S1 Patient is evaluated today at bedside, she is much more awake today, she is resting in bed. Nursing staff was also available at bedside today. Patient's pain is mainly with movement. She has been utilizing the brace ambulatory. She has not had a bowel movement at this time. She is urinating with no difficulties. Accordingly, patient initially was not very happy with the decrease in pain medication yesterday, they seem to be a level of anxiety that had developed. Had a long discussion today with the patient at bedside regarding the use of narcotics and trying to decrease them. Patient states that she has been on both Percocet and Xanax in the past, she cannot tell me exactly who did prescribe these medications. She denies chest pain or shortness of breath. She denies any bowel or bladder incontinence. Objective - Vital Signs Vital signs: Vital Signs Temp 98.3 F 12/07/22 11:38 Pulse 65 12/07/22 11:38 Resp 16 12/07/22 11:38 BP 123/69 12/07/22 11:38 Pulse Ox 95 12/07/22 11:38 FiO2 21 12/07/22 08:16 Intake & Output 12/06/22 12/07/22 12/07/22 18:59 06:59 18:59 Intake Total 485 10 260 Output Total 650 Balance -165 10 260 Intake: IV 5 10 20 Invasive Line 5 5 Invasive Line 6 10 20 Oral 480 240 Output: Urine 650 Other: Voiding Method Toilet Toilet Toilet # Voids 1 1 2 ABP, PAP, CO, CI - Last Documented Arterial Blood Pressure 117/51 - Exam Gen: AOx3, NAD VSS stable at this time Integument: Dressing was removed today, dilia are all in good position and condition. No active drainage visualized Palpation: Tenderness with palpation of the midline and paraspinal region of the lumbar spine ROM: Full range of motion in all major muscle groups of the bilateral upper and lower extremity Sensory Exam: Senory exam to light touch is intact C5-T1 Senosry exam to light touch is intact L2-S1 Motor: 45 strength appreciated in the bilateral lower extremities with hip flexion, extension, knee flexion, plantar flexion, dorsiflexion, EHL, FHL Reflexes: 2/4 in all UE and LE Negative Charissa's, Babinski, clonus - Labs CBC & Chem 7: 12/07/22 07:53 12/07/22 07:53 Labs: Abnormal Lab Results - Last 24 Hours (Table) 12/06/22 12/07/22 12/07/22 Range/Units 16:30 06:14 07:53 RBC 3.33 L (3.80-5.40) m/uL Hgb 11.3 L (11.4-16.0) gm/dL MCV 102.8 H (80.0-100.0) fL Glucose (74-99) mg/dL POC Glucose (mg/dL) 121 H 145 H (70-110) mg/dL Calcium (8.4-10.2) mg/dL 12/07/22 12/07/22 Range/Units 07:53 11:29 RBC (3.80-5.40) m/uL Hgb (11.4-16.0) gm/dL MCV (80.0-100.0) fL Glucose 136 H (74-99) mg/dL POC Glucose (mg/dL) 115 H (70-110) mg/dL Calcium 8.0 L (8.4-10.2) mg/dL Assessment and Plan Assessment: Postoperative day #5 status post hardware removal L4-S1, revision posterior lat eral fusion L3-S1 Type II NSTEMI Coronary artery disease Plan: Pain control, will continue with current medications. Explained that I would like to hold off on using Percocet at this time. She will have discussed with primary care the possibility of utilizing Xanax for anxiety type symptoms Patient has not had a bowel movement in over, discussed with stronger pain medication with him. Multiple stool softeners have been admitted at this time. DVT prophylaxis, patient has been resumed on Plavix Wound care monitor dressing Continue use of LSO brace while ambulating Weight-bear as tolerated, utilize walker all times Encourage incentive spirometer Daily PT/OT Other medical office representative recommendations We will continue to follow during his inpatient stay Time with Patient: Less than 30
[2022-12-07 16:49] LABS: Glucose,Whole Blood 114 mg/dL (70-110)
[2022-12-07] MEDS: CYCLOBENZAPRINE 10 MG TAB PO PRN (19:46)
[2022-12-07] MEDS: QUEtiapine 400 MG TAB PO SCH (19:46)
[2022-12-08] MEDS: HEPARIN SODIUM,PORCINE/PF 5,000 UNIT/0.5 ML SYRINGE SQ SCH ×4 (00:01→23:59)
[2022-12-08] MEDS: MORPHINE SULFATE 2 MG/ML SYRINGE IVP PRN ×3 (00:02→20:24)
[2022-12-08] MEDS: LEVOTHYROXINE 125 MCG TAB PO SCH (06:00)
[2022-12-08] MEDS: HYDROcodone/APAP 7.5-325MG 1 EACH TAB PO PRN ×3 (06:00→16:47)
[2022-12-08 06:17] LABS: Glucose,Whole Blood 114 mg/dL (70-110)
[2022-12-08] MEDS: ASPIRIN 81 MG PO SCH (08:09)
[2022-12-08] MEDS: METOPROLOL SUCCINATE (ER) 25 MG TAB.ER.24H PO SCH (08:09)
[2022-12-08] MEDS: PANTOPRAZOLE 40 MG/10 ML VIAL IV SCH (08:09)
[2022-12-08] MEDS: CLOPIDOGREL 75 MG TAB PO SCH (08:09)
[2022-12-08] MEDS: ATORVASTATIN 80 MG TAB PO SCH (08:09)
[2022-12-08] MEDS: PREGABALIN 75 MG CAP PO SCH ×3 (08:09→20:24)
--- NOTE | 2022-12-08 10:39 | P.PN ---
Subjective Progress Note Date: 12/08/22 On today's evaluation of 12/08/2022, the patient is resting comfortably in bed on room air oxygen. She is free of any chest pain. She is still not sure of what is going to be her plan as the patient underwent hardware removal L4-S1 and posterior lateral fusion L3 through S1. Note that during the surgery, the patient became hypotensive, and she also had ventricular tachycardia. Subsequently, her troponins came back positive and the patient obviously had a acute non-ST segment elevation myocardial infarction. Cardiology was involved and the plan is to do a coronary angiogram and the patient underwent the catheterization and the coronary stent was essentially patent and there was no intervention done and the patient was kept on medical treatment.. I'm going to discuss this with the rest of the team. She is not happy and she still having issues with pain. She is wearing a hard a hard brace. She is still on aspirin. She is also on Plavix. She is a she is also noted on metoprolol and she is often is in a prone for now. She is receiving Upatoi for pain control. She is also on Flexeril. Objective - Vital Signs Vital signs: Vital Signs Temp 97.9 F 12/08/22 08:08 Pulse 78 12/08/22 08:08 Resp 18 12/08/22 08:08 BP 122/69 12/08/22 08:08 Pulse Ox 95 12/08/22 08:08 FiO2 21 12/07/22 08:16 Intake & Output 12/07/22 12/08/22 12/08/22 18:59 06:59 18:59 Intake Total 878 20 Balance 878 20 Intake: IV 20 20 Invasive Line 6 20 20 Oral 858 Other: Voiding Method Toilet Toilet # Voids 2 # Bowel Movements 1 ABP, PAP, CO, CI - Last Documented Arterial Blood Pressure 117/51 - Exam GENERAL EXAM: Alert, 62-year-old female, on room air, comfortable in no apparent distress. HEAD: Normocephalic. EYES: Normal reaction of pupils, equal size. NOSE: Clear with pink turbinates. THROAT: No erythema or exudates. NECK: No masses, no JVD. CHEST: No chest wall deformity. LUNGS: Equal air entry with no crackles, wheeze, rhonchi or dullness. CVS: S1 and S2 normal with no audible murmur, regular rhythm. ABDOMEN: No hepatosplenomegaly, normal bowel sounds, no guarding or rigidity. SPINE: Dressing dry and intact SKIN: No rashes CENTRAL NERVOUS SYSTEM: No focal deficits, tone is normal in all 4 extremities. EXTREMITIES: There is no peripheral edema. No clubbing, no cyanosis. Peripheral pulses are intact. - Labs CBC & Chem 7: 12/07/22 07:53 12/07/22 07:53 Labs: Abnormal Lab Results - Last 24 Hours (Table) 12/07/22 12/07/22 12/08/22 Range/Units 11:29 16:43 06:16 POC Glucose (mg/dL) 115 H 114 H 114 H (70-110) mg/dL Assessment and Plan Plan: Postop day #5 , attempted, L4-S1 decompression and fusion for chronic back pain. Significant cardiopulmonary instability characterized by ventricular fi brillation, and hypotension, resulting in the premature termination of the procedure. Respiratory failure, requiring admission to the ICU, with an orally placed endotracheal tube, and mechanically ventilated, patient was successfully extubated on 12/03/2022. Stable and room air. History of CAD, with previous PCI, and stent placement. Cardiac catheterization from 12/04/2022 revealed patent stent to the RCA. History of hyperlipidemia. History of hypertension. History of urinary incontinence. History of hypothyroidism. History of chronic tobacco use. Plan: Stable and on room air Increase her activity as tolerated To wear LSO brace while up and assisted with a walker Continue this continue the same cardiac medications. We will see as needed
--- NOTE | 2022-12-08 11:17 | P.PN ---
Subjective Progress Note Date: 12/08/22 Hospital Course: Patient is a 62-year-old female with hypertension, dyslipidemia, coronary artery disease status post 6 stents, and fibromyalgia who initially presented for lumbar decompression and fusion L4 to S1. During the procedure the patient had low blood pressure and developed ventricular arrhythmia on 2 separate occasions. This required resuscitation with IV fluids, epinephrine, and norepinephrine. She was subsequently admitted to the ICU. Her procedure was aborted early due to the arrhythmia and she did have a posterior lateral fusion of L3 to S1, removal of hardware L4 to S1. On arrival to the ICU she was requiring norepinephrine and was intubated. Pulmonary and cardiology were consulted. She underwent an echocardiogram which showed a preserved ejection fraction and no wall motion abnormality. Overnight on 12/02 she became agitated and was unable to ventilate due to biting on the tube and required Nimbex. Her Troponin maxed at 6.7 and she was started on a heparin gtt, plavix, and Aspirin. Cardiac cath 3/2 - no significant disease in the RCA, widely patent LAD, left main and cir free of significant disease. Patient now off of heparin drip. Per cardiology, patient can proceed with further surgery if needed. [facility]ospine still following. Ophthalmology also following Pertinent Imaging: Limited Echo with EF 50-55%, mild LVH, no wall motion abnormality Lumbar spine CT- fusion hardware with L3-S1 Cardiac cath /2 - no significant disease in the RCA, widely patent LAD, left main and cir free of significant disease. Subjective: Patient seen and examined at bedside. No acute events overnight. She claims that she has significant back pain not manageable with medications. She also feels that she is more anxious and depressed compared to prior to coming to the hospital. She denies any chest pain, shortness of breath, abdominal pain, nausea, vomiting, diarrhea, constipation, or urinary complaints. She claims that she is ambulating well. Pertinent positives and negatives as discussed above, a complete review of systems was performed and all other systems are negative. Vitals Signs Reviewed. General: nontoxic, no distress, appears at stated age Derm: warm, dry, back dressing appears dry, clean, intact Head: atraumatic, normocephalic, symmetric Eyes: EOMI, no lid lag, anicteric sclera Mouth: no lip lesion, mucus membranes moist Cardiovascular: S1S2 reg, no murmur Lungs: CTA bilateral, no rhonchi, no rales , no accessory muscle use Abdominal: soft, nontender to palpation, no guarding, no appreciable organomegaly Ext: no gross muscle atrophy, no edema, no contractures Neuro: CN II-XI grossly intact, no focal neuro deficits Psych: Alert, oriented, tearful Data Reviewed Today: Pertinent Labs: blood sugars range from 114-136, B12 433, folic acid 12.4, TSH 3.1 Assessment and Plan: Active: Acute on chronic lower back pain Status post removal of L4 to S1, posterior lateral fusion L3 to S1 Mild macrocytic anemia Anxiety/depression - On 2 mg IV morphine every 6 hours as needed for breakthrough pain, required 2 dose today , 3 doses yesterday - Also on oral norco, Lyrica 150 mg daily, cyclobenzaprine 10 mg when necessary - Home duloxetine restarted, 120 mg daily, patient was also amitriptyline at home, will hold off at the moment given recent ventricular arrhythmia - Cardiology signed off, patient can proceed with further surgery if needed - Pulmonology note reviewed: Continue current management, increase mobility, patient to be seen on an as-needed basis - PT/OT, recommending subacute rehab as of 12/05 - Pending further recommendations from orthospine with regards to further interventions versus possible discharge - TSH, B12, folic acid levels within normal limits, anemia likely in the setting of recent intervention Resolved: Intraoperative ventricular arrhythmia Type II NSTEMI Ischemic hepatitis Metabolic alkalosis Chronic: CAD status post stent Hypertension Dyslipidemia DVT ppx: Subcu heparin Code status: Full code Anticipated discharge place: Likely subacute rehab Anticipated discharge time: Pending clinical course Objective - Vital Signs Vital signs: Vital Signs Temp 97.9 F 12/08/22 08:08 Pulse 78 12/08/22 08:08 Resp 18 12/08/22 08:08 BP 122/69 12/08/22 08:08 Pulse Ox 95 12/08/22 08:08 FiO2 21 12/07/22 08:16 Intake & Output 12/07/22 12/08/22 12/08/22 18:59 06:59 18:59 Intake Total 878 20 Balance 878 20 Intake: IV 20 20 Invasive Line 6 20 20 Oral 858 Other: Voiding Method Toilet Toilet # Voids 2 # Bowel Movements 1 ABP, PAP, CO, CI - Last Documented Arterial Blood Pressure 117/51 - Labs CBC & Chem 7: 12/07/22 07:53 12/07/22 07:53 Labs: Abnormal Lab Results - Last 24 Hours (Table) 12/07/22 12/07/22 12/08/22 Range/Units 11:29 16:43 06:16 POC Glucose (mg/dL) 115 H 114 H 114 H (70-110) mg/dL
[2022-12-08 11:25] LABS: Glucose,Whole Blood 89 mg/dL (70-110)
[2022-12-08] MEDS: CYCLOBENZAPRINE 10 MG TAB PO PRN (12:09)
--- NOTE | 2022-12-08 12:47 | P.PN ---
Subjective Progress Note Date: 12/08/22 Principal diagnosis: Status post hardware removal L4-S1, posterolateral fusion L3-S1 Patient evaluated at bedside, she is actually visualize standing up at bedside having lunch. She is feeling a little better she states. She feels that the pain is somewhat controlled with current medications. She has been utilizing LSO brace and walker when up. She denies chest pain or shortness of breath. She denies any bowel or bladder incontinence. Objective - Vital Signs Vital signs: Vital Signs Temp 97.9 F 12/08/22 08:08 Pulse 78 12/08/22 08:08 Resp 18 12/08/22 08:08 BP 122/69 12/08/22 08:08 Pulse Ox 95 12/08/22 08:08 FiO2 21 12/07/22 08:16 Intake & Output 12/07/22 12/08/22 12/08/22 18:59 06:59 18:59 Intake Total 878 20 Balance 878 20 Intake: IV 20 20 Invasive Line 6 20 20 Oral 858 Other: Voiding Method Toilet Toilet # Voids 2 # Bowel Movements 1 ABP, PAP, CO, CI - Last Documented Arterial Blood Pressure 117/51 - Exam Gen: AOx3, NAD VSS stable at this time Integument: Dressing is stable today. No active drainage visualized Palpation: Tenderness with palpation of the midline and paraspinal region of the lumbar spine ROM: Full range of motion in all major muscle groups of the bilateral upper and lower extremity Sensory Exam: Senory exam to light touch is intact C5-T1 Senosry exam to light touch is intact L2-S1 Motor: 45 strength appreciated in the bilateral lower extremities with hip flexion, extension, knee flexion, plantar flexion, dorsiflexion, EHL, FHL Reflexes: 2/4 in all UE and LE Negative Charissa's, Babinski, clonus - Labs CBC & Chem 7: 12/07/22 07:53 12/07/22 07:53 Labs: Abnormal Lab Results - Last 24 Hours (Table) 12/07/22 12/08/22 Range/Units 16:43 06:16 POC Glucose (mg/dL) 114 H 114 H (70-110) mg/dL Assessment and Plan Assessment: Postoperative day #6 status post hardware removal L4-S1, revision posterior lateral fusion L3-S1 Type II NSTEMI Coronary artery disease Plan: Pain control, continue on [place] 7.5 mg/325 mg, Lyrica and Flexeril Continues to daily stool softeners DVT prophylaxis, patient has been resumed on Plavix Continue to monitor dressing Continue use of LSO brace while ambulating Weight-bear as tolerated, utilize walker all times Encourage incentive spirometer Daily PT/OT Other ophthalmic medical assistant recommendations Discharge planning: At this point we are not considering any further orthopedic spine surgery. Recommending a subacute rehab placement. Patient will continue to utilize LSO brace and walker. No bending, twisting or lifting at this time. Patient will follow up in office with Dr. Nova in 7-10 days fore recheck Time with Patient: Less than 30
[2022-12-08 16:15] LABS: Glucose,Whole Blood 125 mg/dL (70-110)
[2022-12-08] MEDS: QUEtiapine 400 MG TAB PO SCH (20:24)
[2022-12-08] MEDS ORDERED: DULoxetine HCL 60 MG CAPSULE.DR PO SCH (21:00)
[2022-12-09] MEDS: LEVOTHYROXINE 125 MCG TAB PO SCH (06:31)
[2022-12-09] MEDS: HYDROcodone/APAP 7.5-325MG 1 EACH TAB PO PRN ×2 (06:35→11:39)
[2022-12-09] MEDS: MORPHINE SULFATE 2 MG/ML SYRINGE IVP PRN (08:38)
[2022-12-09] MEDS: ASPIRIN 81 MG PO SCH (08:39)
[2022-12-09] MEDS: HEPARIN SODIUM,PORCINE/PF 5,000 UNIT/0.5 ML SYRINGE SQ SCH (08:39)
[2022-12-09] MEDS: CLOPIDOGREL 75 MG TAB PO SCH (08:39)
[2022-12-09] MEDS: PANTOPRAZOLE 40 MG/10 ML VIAL IV SCH (08:39)
[2022-12-09] MEDS: METOPROLOL SUCCINATE (ER) 25 MG TAB.ER.24H PO SCH (08:39)
[2022-12-09] MEDS: PREGABALIN 75 MG CAP PO SCH (08:39)
[2022-12-09] MEDS: ATORVASTATIN 80 MG TAB PO SCH (08:39)
[2022-12-09 09:00] VITALS: BP 130/57; PULSE 88; RESP 20; TEMP 98
--- NOTE | 2022-12-09 14:44 | P.DS ---
Providers Date of admission: 12/02/22 06:04 Expected date of discharge: 12/09/22 Attending physician: Eloina Davidson DO Consults: 12/02/22 11:41 Consult Physician Routine Consulting Provider: Samir Walton Consult Reason/Comments: VTACH Do you want consulting provider notified?: Yes Placement Type Exists?: Yes Consult Physician Routine Consulting Provider: Vasyl Benjamin Consult Reason/Comments: ICU management Do you want consulting provider notified?: Already Contacted Placement Type Exists?: Yes 12/02/22 15:19 Consult Physician Routine Consulting Provider: Eloina Davidson Consult Reason/Comments: HTN Do you want consulting provider notified?: Already Contacted Primary care physician: Nathanael Nogueira MD Hospital Course: Discharge Diagnosis: Patient is a 62-year-old female who initially presents presented for revision of her lumbar fusion. Intraoperatively she had a ventricular fib arrest which aborted quickly. Her spine was stabilized and the remainder of the procedure was aborted. Type II NSTEMI- cardiac cath 12/04 - no significant disease in the RCA, widely patent LAD, left main and cir free of significant disease Transaminitis, suspect ischemic HTN HLD CAD with hx of stents Thrombocytopenia, anticipated outcome, resolved Leukocytosis, resolved Hospital Course: Patient is a 62-year-old female with hypertension, dyslipidemia, coronary artery disease status post 6 stents, and fibromyalgia who initially presented for lumbar decompression and fusion L4 to S1. During the procedure the patient had low blood pressure and developed ventricular fibrillation on 2 separate occasions. This required resuscitation with IV fluids, epinephrine, and norepinephrine. She was subsequently admitted to the ICU. We were consulted for hypertensive management. Her procedure was aborted early due to the ventricular fibrillation and she did have a posterior lateral fusion of L3 to S1, removal of hardware L4 to S1. On arrival to the ICU she was requiring norepinephrine and was intubated. Pulmonary and cardiology were consulted. She underwent an echocardiogram which showed a preserved ejection fraction and no wall motion abnormality. Overnight on 12/02 she became agitated and was unable to ventilate due to biting on the tube and required Nimbex. Her Troponin maxed at 6.7 and she was started on a heparin gtt, plavix, and Aspirin. She underwent cardiac catheterization on 12/04 which showed no significant progression of coronary artery disease and no need for intervention. She continued to do well. She had no repeat arrhythmias during her hospital stay. She was determined stable for discharge. She had been following with physical and occupational therapy who felt she was appropriate for home with home health. She will follow with [facility]. Imaging: Limited Echo with EF 50-55%, mild LVH, no wall motion abnormality Lumbar spine CT- fusion hardware with L3-S1 Procedure: 1. Revision posteriolateral fusion L3-S1 ([id number], [id number]) 2. Removal of hardware L4-S1 3. Exploration of fusion L4-S1 with pseudoarthrosis exploration L4-5 4. Use of Flowify Limited navigation for screw placement Cath: Right dominant system, normal filling pressures, no gradient, branch of the RCA has a 60-70% narrowing, major dietary has a 60-70% narrowing, LAD is widely patent, left main and circumflex are free of significant disease. Follow-up: Follow-up with Dr. JONY Dorantes on 12/24/22 at 3:30 PM, Dr. Nova on 01/12 at 1:50 PM, Dr. Nogueira in 1-2 weeks, patient preferred to make appointment-- Warm handed off completed. Patient was resumed on ASA and plavix, Lipitor was increased from 40 mg to 80 mg. She was prescribed Cookson 7.5/325 for pain control. [facility] home care. Patient seen and examined at bedside. She is doing well, no chest pain, no SOB, no constipation. COncerned about who will prescrib pain medications from home and informed that Dr. Nova's team will prescribe post-op pain meds for discharge. Vital signs reviewed and stable. General: nontoxic, no distress, appears at stated age Derm: warm, dry Head: atraumatic, normocephalic, symmetric Eyes: EOMI, no lid lag, anicteric sclera Mouth: no lip lesion, mucus membranes moist Cardiovascular: S1S2 reg, no murmur, positive posterior tibial pulse bilateral, Lungs: CTA bilateral, no rhonchi, no rales , no accessory muscle use Abdominal: soft, nontender to palpation, no guarding, no appreciable organomegaly Ext: no gross muscle atrophy, no edema, no contractures Neuro: CN II-XI grossly intact, no focal neuro deficits Psych: Alert, oriented, appropriate affect A total of 35 minutes of time were spent preparing this complex discharge summary. Patient was discharged on 12/09/22. This dictation was prepared using [employer] voice recognition software. Though every attempt is made to correct errors during during dictation some may still exist. Plan - Discharge Summary New Discharge Prescriptions: New Pantoprazole [Protonix] 40 mg PO DAILY #30 tab HYDROcodone/APAP 7.5-325MG [Cookson 7.5] 1 each PO Q4HR PRN #42 tab PRN Reason: Pain Atorvastatin [Lipitor] 80 mg PO DAILY #30 tab Clopidogrel [Plavix] 75 mg PO DAILY #30 tab Continue Pregabalin [Lyrica] 150 mg PO TID Levothyroxine Sodium [Synthroid] 125 mcg PO DAILY Amitriptyline HCl [Elavil] 25 mg PO HS Oxybutynin Chloride [Oxybutynin Chloride ER] 10 mg PO HS Metoprolol Succinate (ER) [Toprol XL] 25 mg PO HS QUEtiapine [SEROquel] 400 mg PO HS 30 Days tab DULoxetine HCL [Cymbalta] 120 mg PO HS Aspirin 81 mg PO DAILY #30 tab Discontinued Atorvastatin [Lipitor] 40 mg PO DAILY #30 tab No Action Clopidogrel Bisulfate [Plavix] 75 mg PO DAILY Cyclobenzaprine [Flexeril] 10 mg PO HS Discharge Medication List Metoprolol Succinate (ER) [Toprol XL] 25 mg PO HS 07/10/21 [History] Pregabalin [Lyrica] 150 mg PO TID 07/18/21 [History] Clopidogrel Bisulfate [Plavix] 75 mg PO DAILY 01/22/22 [History] Levothyroxine Sodium [Synthroid] 125 mcg PO DAILY 06/18/22 [History] QUEtiapine [SEROquel] 400 mg PO HS 30 Days tab 06/19/22 [Rx] Cyclobenzaprine [Flexeril] 10 mg PO HS 09/23/22 [History] Amitriptyline HCl [Elavil] 25 mg PO HS 10/30/22 [History] DULoxetine HCL [Cymbalta] 120 mg PO HS 10/30/22 [History] Oxybutynin Chloride [Oxybutynin Chloride ER] 10 mg PO HS 10/30/22 [History] Aspirin 81 mg PO DAILY #30 tab 11/01/22 [Rx] Atorvastatin [Lipitor] 80 mg PO DAILY #30 tab 12/09/22 [Rx] Clopidogrel [Plavix] 75 mg PO DAILY #30 tab 12/09/22 [Rx] HYDROcodone/APAP 7.5-325MG [Cookson 7.5] 1 each PO Q4HR PRN #42 tab 12/09/22 [Rx] Pantoprazole [Protonix] 40 mg PO DAILY #30 tab 12/09/22 [Rx] Follow up Appointment(s)/Referral(s): Bjorn Dorantes MD [STAFF PHYSICIAN] - 12/24/22 3:30 pm [facility], [NON-STAFF] - 1 Week Nima Nova DO [Doctor of Osteopathic Medicine] - 01/12/23 1:50 pm Activity/Diet/Wound Care/Special Instructions: Diet: Heart healthy Special Instructions: Take blood pressures daily and make a log to bring with you to your appointment with Dr. Dorantes Spine Recovery Instruction Dressing: Leave your dressing in place for a total of 5 days post operatively. Then you may remove your dressing and leave open to air. Keep the area clean and if not able to keep area clean, then cover with sterile gauze and tape. Showering: You may shower 3 days after your procedure allowing soap and water to run over incision. Do not scrub. Do not soak. Blot dry. Follow up: Please confirm a follow up appointment with your surgeon 3 weeks post operatively. Please make an appointment to follow up with your PCP in 1-2 weeks after surgery for evaluation 3 phase, 3-week plan POST OP WEEKS 1-3 1. Lifting/carrying/pushing/pulling limited to less than 5 pounds. 2. Do not sit for longer than 15 minutes at one time. Get up and walk around. Prolonged sitting is NOT advised. If you lay down, see if you can tolerate laying down on you front (belly side) 3. Walk for periods of 15 minutes = 1 mile but no longer; do it multiple times times each day. 4. Ice your low back after activity. POST OP WEEKS 3-6 1. Lifting limited to less than 20 pounds. 2. Do not sit for longer than 30 minutes at a time. Frequently change positions. Use a sit-to stand workstation or take frequent breaks from sitting if you have returned to work. 3. Walk for 30 minutes each day. If possible, do these three or more times a day POST OP WEEKS 6+ At your 6-week appointment we will give you a physical therapy referral to focus on a core stabilization and strengthening program. You should also work on leg & buttock strengthening, hamstring & quadriceps stretching, and continue a low impact aerobic activity program such as swimming, walking, or riding a stationary bicycle. During the initial 6 weeks after your surgery, you are at the highest risk of re-injuring your spine. You should generally avoid BLTs (bending, lifting and twisting combination motions) and follow the above guidelines to reduce the chance of reinjury. You can anticipate post op appointments in our office at approximately 3 weeks and 6 weeks after your surgery. INCISION CARE: If your incision is not draining you do NOT need to cover it with a dressing. Keep your incision clean, dry and intact. In most cases, we apply skin glue, dilia or sutures to the incision at the time of surgery. This will be like a crust or have the appearance of a scab and will fall off in time on its own. The stitches or dilia need to be removed at 3 weeks post op appointment. You may begin to shower 3 days after surgery (this allows the glue to nieves well). However, please avoid scrubbing the incision site or peeling off any of the skin glue. This will ensure optimal healing of your incision. Also, during this time avoid soaking the incision area in water - this includes swimming pools, hot tubs or baths. No ointments, lotions or oils on the incision until your surgeon allows. Leave dilia, sutures or glue in place. Neurological dysfunction that comes on suddenly can also be a sign of a stroke. Below some common symptoms of a stroke are listed: B - balance difficulty such as sudden onset walking or leaning to one side - N EW E - eye problem such as sudden double vision or trouble seeing on one side - NEW F - Facial weakness or numbness on one side - NEW A - Arm or leg weakness or numbness on one side - NEW S - Slurred speech or difficulty with word finding - NEW T - Time is BRAIN! Call 911 as soon as you recognize these symptoms Diet: Consume a regular diet rich in vegetables and lean protein such as chicken or fish. You should consume in a ratio of approximately 20% fats|40% carbohydrates|40%protein. Vegetables, sweet potatoes, brown rice or quinoa are examples of good carbohydrates. Chips, white bread, cookies and sweets/sugar are examples of bad carbohydrates. Limit your bad carbs, go wild with good carbs. "Life's Simple 7" Guidelines as per [place] [employer] These will help you reclaim your life after surgery and calender machine operator helper in your recovery, keeping in mind your restrictions. (1) Get Active. Physical activity can help people lose weight, control high blood pressure and cholesterol, feel emotionally better, and sleep better. (2) Control Cholesterol. Avoid a diet high in saturated fat, trans fat, & cholesterol. Limit whole milk & cream, ice cream, butter, egg yolks, processed meats (like sausage and hot dogs), and fatty meats. Choose healthy foods that are low in saturated fat, trans fat and cholesterol which include: Fruits and vegetables, fiber rich grain products (like whole grain pasta and brown rice), lean meat such as chicken, fish, nuts, seeds, and legumes. (3) Eat Better. Eat small portions. Shop at the grocery with a list and do not stray from it. Tips for a healthy diet include: Limit sodium intake to less than 1500mg daily, avoid prepackaged, processed, and fast foods, choose a diet rich in fruits, vegetables, and whole grain, high fiber foods, and limit saturated & cholesterol in your diet. (4) Manage Blood Pressure. If you have high blood pressure, you should have a cuff at home so that you can check your blood pressure regularly. Be sure you have a good cuff. An arm one is generally better than a wrist one. Bring the cuff to a doctor's appointment to validate that the measurements that your cuff are taking are accurate. Take your blood pressure twice daily when you are sitting down and relaxing. Record the numbers in a log and bring this log with you to your doctors' appointments. (5) Lose Weight if your BMI is above 25. A healthy BMI is between 19-25. To calculate Your BMI, you may use a Standard BMI Calculator on the NIH BMI website: <www.nhlbi.nih.gov/guidelines/obesity/BMI/bmicalc.htm>. Weigh oneself daily. If you are overweight, set a goal to lose weight. A pound a week loss if needed is a good target. (6) Reduce Blood Sugar. Limit foods and liquids with "added sugars." (Added sugars include sucrose, fructose, glucose, maltose, dextrose, high fructose corn syrup, corn syrup, concentrated fruit juice and honey). (7) Stop Smoking. If you smoke, quitting smoking is one of the best things that you can do for your health. Smoking increases your risk of heart attack, stroke, and peripheral vascular disease, which is a build-up of plaque in your arteries. Please discard all the cigarettes and lighters in your house. Have a plan for what you will do when you have the urge to smoke. Direct and second- hand smoke shortens your life as well as the lives of your family, friends and others around you. For your health and the health of those around you, please consider quitting! Proper Bending Body Mechanics: Maintain a wide stance with one foot slightly in front of the other. Keep your back straight. Bend utilizing the strength in your hips and knees. Do not bend at the waist. Maintain the lifted object at your waist-level close to your body. Avoid lifting weight that causes immediately pain or pain anywhere in the body afterwards. Smoking/Nicotine If there was ever one thing that you could do to increase your overall health, decrease your risk of cardiovascular problems by about 39% the second you make the choice, it is to STOP SMOKING. Your body's most instant gratification is the second you stop smoking. We have all heard the studies, read the articles but it is true, smoking is extremely bad for your overall health, and moreover it is detrimental to your bone health. Nicotine, IN ANY FORM, kills bone cells, prevents your body from healing fractures, and significantly prolongs healing after surgery. In spine surgery specifically, it increases your risk of not healing your bones to create a fusion and increases your risk of having a revision surgery due to this up to 60%. I know it is hard. I know it feels impossible. But there are ways. Take control of your life. We are here to help you through it. And when you are ready, ask us and we can direct you to help if you desire. Use the START Plan to Quit Smoking (please visit the Helpguide.org website listed below for more information): S = Set a quit date. Choose a date within the next 2 weeks, so you have enough time to prepare without losing your motivation to quit. If you mainly smoke at work, quit on the weekend, so you have a few days to adjust to the change. T = Tell family, friends, and co-workers that you plan to quit. Let your friends and family in on your plan to quit smoking and tell them you need their support and encouragement to stop. Look for a quit aba who wants to stop smoking as well. You can help each other get through the rough times. A = Anticipate and plan for the challenges you'll face while quitting. Most people who begin smoking again do so within the first 3 months. You can help yourself make it through by preparing ahead for common challenges, such as nicotine withdrawal and cigarette cravings. R = Remove cigarettes and other tobacco products from your home, car, and work. Throw away all your cigarettes (no emergency pack!), lighters, ashtrays, and matches. Wash your clothes and freshen up anything that smells like smoke. Shampoo your car, clean your drapes and carpet, and steam your furniture. T = Talk to your doctor about getting help to quit. Your doctor can prescribe medication to help with withdrawal and suggest other alternatives. If you can't see a doctor, you can get many products over the counter at your local pharmacy or grocery store, including the nicotine patch, nicotine lozenges, and nicotine gum. Resources for Quitting Smoking: <https://www.[facility].gov/documents/[facility]/Quit_Tobacco_Resources_for_patients_313480_7.pdf> Supplementation: Take recommended dosages of Vitamin D and Calcium to help fortify your bones and help them to heal. See your health maintenance packet for dosages and recommended levels. DVT/VTE prophylaxis: You will be given compression stockings from the hospital. Wear these daily for the first two weeks after surgery. You may take them off at night. You may be prescribed a medication to help thin your blood. Take this as directed. If you are not prescribed this medication, early and frequent ambulation has been shown to be the best prophylaxis to deep vein thrombosis and sequelae related to this event. Discharge Disposition: HOME WITH HOME HEALTH SERVICES
--- NOTE | 2022-12-11 11:30 | CDI ---
Documentation Clarification Form Date: 12/11/2022 11:11:18 AM From: Cheri Jordan Phone: Admit Date: 12/02/2022 6:04:00 AM Patient Name: Adeline Christiansen Visit Number: [id number] Discharge Date: 12/09/2022 12:40:00 PM ATTENTION: The Clinical Documentation Specialists (CDI) and [facility] Coding Staff appreciate your assistance in clarifying documentation. Please respond to the clarification below the line at the bottom and electronically sign. The CDI & [facility] Coding staff will review the response and follow-up if needed. Please note: Queries are made part of the Legal Health Record. If you have any questions, please contact the author of this message via ITS. Dr. Vasyl Benjamin Post op respiratory failure is documented per 12/02/22 Consult Note. Additional clarification regarding the cause of the post op respiratory failure is requested. History/Risk Factors: 62yo F, Intraop V Fibarrest, NSTEMI II, transaminitis,HTN, HLD, CADwstents, thrombocytopenia Vital signs: 12/02/2313:00 60 18 140/87 98 12/02/2306:23 56 L 16 117/60 95 12/02/2306:11 97.6 F 61 20 127/66 96 Pulse oximetry: 95-100 BG PCO2 (mmHg) 46H 39 BG PCO2 (mmHg) 46H 39 ABG PO2 (mmHg) >400H 106 ABG PH 7.32L 7.48H Treatment: admission to the ICU, with an orallyplaced ET andmechanically ventilated. Please clarify the documentation related to post op respiratory failure, if known: [ ] Acute Hypoxic Respiratory Failure (pO2 <60 mm Hg or SpO2 <91% on room air) [ ] Acute Hypercapnic Respiratory Failure (pCO2 >50 and pH <7.35) [ X ] Other please specify [ ] Unable to determine (Template Last Revised: December 2020) Patient apparently had upper airway obstruction according to anesthesia MTDD
== END 2022-12-09 12:40 | disposition home health service (06) | DRG 310 ==
LOC: 2ORMAIN 06:04 → 2SICU 10:35 → 3SCARD 12-04 18:29 → 6NMEDSUR 12-08 19:42
PROVIDERS: ADMIT Internal Medicine; ATTEND Internal Medicine
PROC: 0SP304Z Removal of Internal Fixation Device from Lumbosacral Joint, Open Approach (ICD-10-PCS; 2022-12-02)
PROC: 8E0WXBZ Computer Assisted Procedure of Trunk Region (ICD-10-PCS; 2022-12-02)
PROC: 3E033XZ Introduction of Vasopressor into Peripheral Vein, Percutaneous Approach (ICD-10-PCS; 2022-12-02)
PROC: 5A1945Z Respiratory Ventilation, 24-96 Consecutive Hours (ICD-10-PCS; 2022-12-02)
PROC: 0SJ00ZZ Inspection of Lumbar Vertebral Joint, Open Approach (ICD-10-PCS; principal; 2022-12-02 10:45)
PROC: B2111ZZ Fluoroscopy of Multiple Coronary Arteries using Low Osmolar Contrast (ICD-10-PCS; 2022-12-04)
PROC: 4A023N7 Measurement of Cardiac Sampling and Pressure, Left Heart, Percutaneous Approach (ICD-10-PCS; 2022-12-05)
DX: T84.226A Displacement of internal fixation device of vertebrae, initial encounter (principal); I21.A1 Myocardial infarction type 2; K72.00 Acute and subacute hepatic failure without coma; J96.90 Respiratory failure, unspecified, unspecified whether with hypoxia or hypercapnia; I49.01 Ventricular fibrillation; I97.711 Intraoperative cardiac arrest during other surgery; I47.0 Re-entry ventricular arrhythmia; E87.4 Mixed disorder of acid-base balance; D69.6 Thrombocytopenia, unspecified; I95.9 Hypotension, unspecified; I11.9 Hypertensive heart disease without heart failure; D53.9 Nutritional anemia, unspecified; E03.9 Hypothyroidism, unspecified; F32.A Depression, unspecified; D50.0 Iron deficiency anemia secondary to blood loss (chronic); M96.0 Pseudarthrosis after fusion or arthrodesis; M47.26 Other spondylosis with radiculopathy, lumbar region; M48.061 Spinal stenosis, lumbar region without neurogenic claudication; Z53.8 Procedure and treatment not carried out for other reasons; I25.10 Atherosclerotic heart disease of native coronary artery without angina pectoris; E78.5 Hyperlipidemia, unspecified; M79.7 Fibromyalgia; J98.8 Other specified respiratory disorders; M43.16 Spondylolisthesis, lumbar region; M43.17 Spondylolisthesis, lumbosacral region; D72.828 Other elevated white blood cell count; G89.29 Other chronic pain; R32 Unspecified urinary incontinence; G47.9 Sleep disorder, unspecified; F41.9 Anxiety disorder, unspecified; R45.1 Restlessness and agitation; Y83.8 Other surgical procedures as the cause of abnormal reaction of the patient, or of later complication, without mention of misadventure at the time of the procedure; Y79.1 Therapeutic (nonsurgical) and rehabilitative orthopedic devices associated with adverse incidents; I25.2 Old myocardial infarction; Z95.5 Presence of coronary angioplasty implant and graft; Z87.891 Personal history of nicotine dependence; Z28.311 Partially vaccinated for COVID-19; Z79.899 Other long term (current) drug therapy; Z79.02 Long term (current) use of antithrombotics/antiplatelets; Z79.890 Hormone replacement therapy; Z79.82 Long term (current) use of aspirin; Z88.0 Allergy status to penicillin; Z88.1 Allergy status to other antibiotic agents; Z88.6 Allergy status to analgesic agent; Z88.8 Allergy status to other drugs, medicaments and biological substances; Z86.73 Personal history of transient ischemic attack (TIA), and cerebral infarction without residual deficits
CPT/HCPCS: 71045; 72100; 72131; 80048; 80053; 82607; 82746; 82805; 83735; 84439; 84443; 84484; 85025; 85027; 85610; 85730; 86850; 86900; 86901; 93308; 93458; 94002; 94003; 94640; 94760

== ENCOUNTER 2022-12-15 22:23 | Inpatient (IN) | payer OTHER ==
[2022-12-15] MEDS ORDERED: ACETAMINOPHEN TAB 500 MG TAB PO STA (22:38)
[2022-12-15] MEDS: SODIUM CHLORIDE 0.9% 500 ML 500 ML IV SCH ×3 (22:45→23:25)
[2022-12-15 23:02] LABS: Glucose,Whole Blood 128 mg/dL (70-110)
[2022-12-15 23:27] LABS: Basophils % (A) 0 %; Eosinophils # (A) 0.2 k/uL (0-0.7); Eosinophils % (A) 1 %; HGB 12.4 gm/dL (11.4-16.0); Lymphocytes # (A) 0.5 k/uL (1.0-4.8); Lymphocytes % (A) 3 %; MCH 32.2 pg (25.0-35.0); MCHC 32.6 g/dL (31.0-37.0); MCV 98.9 fL (80.0-100.0); Mean Platelet Volume 7.8; Monocytes # (A) 0.4 k/uL (0-1.0); Monocytes % (A) 3 %; Neutrophils # (A) 14.5 k/uL (1.3-7.7); Neutrophils % (A) 92 %; Platelet Count 349 k/uL (150-450); RBC 3.85 m/uL (3.80-5.40); RDW 13.5 % (11.5-15.5); WBC 15.7 k/uL (3.8-10.6)
[2022-12-15 23:36] LABS: INR 1.1 (<1.2); Partial Thromboplastin Time 26.2 sec (22.0-30.0); Prothrombin Time 11.1 sec (9.0-12.0)
[2022-12-15 23:37] LABS: Albumin 3.5 g/dL (3.5-5.0); Potassium 3.7 mmol/L (3.5-5.1)
[2022-12-15] MEDS ORDERED: fentaNYL (PF) 50 MCG/ML 2 ML AMP IVP STA (23:59)
--- NOTE | 2022-12-16 00:07 | ED ---
General Adult HPI - General Chief complaint: Fever Stated complaint: post op comp Time Seen by Provider: 12/15/22 22:30 Source: EMS Mode of arrival: EMS Limitations: altered mental status - History of Present Illness Initial comments: This is a 62-year-old female who presents emergency department via EMS for a fever and intermittent altered mental status. Per EMS, the patient reportedly was having altered mental status intermittently throughout the day today. The patient reportedly had a fever. The patient underwent a back surgery one week ago but during the procedure, the patient had multiple episodes of cardiac arrest therefore the surgery was not completed. The patient had her incision stapled and did not complete the surgery. The patient's mother was monitoring the patient stated that she has become intermittently altered today. The p atient herself stated that the pain had continued and was not worse but the pain medications were not helping her today. The patient denied any nausea or vomiting as well as any lightheadedness. The patient denied any numbness tingling in the lower extremities. The patient was ANO 4 on my evaluation however would go down confusing and unrelated tangents. - Related Data Home Medications Medication Instructions Recorded Confirmed Metoprolol Succinate (ER) [Toprol 25 mg PO HS 07/10/21 12/02/22 XL] Pregabalin [Lyrica] 150 mg PO TID 07/18/21 12/02/22 Clopidogrel Bisulfate [Plavix] 75 mg PO DAILY 01/22/22 12/02/22 Levothyroxine Sodium [Synthroid] 125 mcg PO DAILY 06/18/22 12/02/22 Cyclobenzaprine [Flexeril] 10 mg PO HS 09/23/22 12/02/22 Amitriptyline HCl [Elavil] 25 mg PO HS 10/30/22 12/02/22 DULoxetine HCL [Cymbalta] 120 mg PO HS 10/30/22 12/02/22 Oxybutynin Chloride [Oxybutynin 10 mg PO HS 10/30/22 12/02/22 Chloride ER] Previous Rx's Medication Instructions Recorded QUEtiapine [SEROquel] 400 mg PO HS 30 Days tab 06/19/22 Aspirin 81 mg PO DAILY #30 tab 11/01/22 Atorvastatin [Lipitor] 80 mg PO DAILY #30 tab 12/09/22 Clopidogrel [Plavix] 75 mg PO DAILY #30 tab 12/09/22 HYDROcodone/APAP 7.5-325MG [[place] 1 each PO Q4HR PRN #42 tab 12/09/22 7.5] Pantoprazole [Protonix] 40 mg PO DAILY #30 tab 12/09/22 Allergies Allergy/AdvReac Type Severity Reaction Status Date / Time ciprofloxacin [From Cipro] Allergy Anaphylaxis Verified 12/02/22 06:29 Penicillins Allergy Swelling/Hi Verified 12/02/22 06:29 ves vancomycin Allergy Dyspnea Verified 12/02/22 06:29 ketorolac tromethamine AdvReac Itching Verified 12/02/22 06:29 [From Toradol] NSAIDS (Non-Steroidal AdvReac STOMACH Verified 12/02/22 06:29 Anti-Inflamma ULCER Review of Systems ROS Statement: Those systems with pertinent positive or pertinent negative responses have been documented in the HPI. ROS Other: All systems not noted in ROS Statement are negative. Past Medical History Past Medical History: Coronary Artery Disease (CAD), Chest Pain / Angina, Fibromyalgia, Hyperlipidemia, Hypertension, Myocardial Infarction ([place]), Osteoarthritis (OA), Thyroid Disorder Additional Past Medical History / Comment(s): interstitial cystitis; constipation, gallstones, LUMBAR BACK PAIN Last Myocardial Infarction Date:: 2013 History of Any Multi-Drug Resistant Organisms: None Reported Past Surgical History: Back Surgery, Bladder Surgery, Breast Surgery, Chol ecystectomy, Heart Catheterization With Stent, Hysterectomy, Orthopedic Surgery Additional Past Surgical History / Comment(s): bladder stimulator, neck surgery, total 6 cardiac stents - back fusion, neck fusion, jeff bunionectomy, revision of back surgery screws, cage and rods were suppose to be placed but DR Nova doesn't see them on imaging. Past Anesthesia/Blood Transfusion Reactions: No Reported Reaction Date of Last Stent Placement:: approx 3 yrs ago Past Psychological History: Anxiety, Bipolar, Depression, Panic Disorder Smoking Status: Former smoker - Past Family History Father Family Medical History: Cancer General Exam Limitations: no limitations, physical limitation General appearance: alert, in no apparent distress Head exam: Present: atraumatic, normocephalic, normal inspection Eye exam: Present: normal appearance, PERRL Pupils: Present: normal accommodation ENT exam: Present: normal exam, normal oropharynx, mucous membranes moist Neck exam: Present: normal inspection, full ROM Respiratory exam: Present: normal lung sounds bilaterally Cardiovascular Exam: Present: regular rate, normal rhythm, normal heart sounds GI/Abdominal exam: Present: soft, normal bowel sounds Extremities exam: Present: normal inspection, full ROM Back exam: Present: full ROM, other (Large midline incision approximately 20 cm was closed, dry and intact without any erythema or induration noted.) Neurological exam: Present: alert, oriented X3, CN II-XII intact Psychiatric exam: Present: normal affect, normal mood Skin exam: Present: warm, dry Course Vital Signs 12/15/22 12/15/22 12/15/22 22:25 22:31 22:45 Temperature 103.3 F H Pulse Rate 85 85 85 Respiratory 20 16 16 Rate Blood Pressure 102/60 O2 Sat by Pulse 95 94 L Oximetry 12/15/22 12/15/22 12/15/22 23:00 23:02 23:15 Temperature 102.6 F H Pulse Rate 86 82 Respiratory 17 18 Rate Blood Pressure 117/57 116/57 O2 Sat by Pulse Oximetry 12/15/22 12/15/22 12/16/22 23:30 23:37 00:00 Temperature Pulse Rate 82 80 78 Respiratory 18 17 Rate Blood Pressure 112/62 110/61 107/60 O2 Sat by Pulse 94 L 94 L Oximetry 12/16/22 00:30 Temperature Pulse Rate 73 Respiratory 16 Rate Blood Pressure 104/63 O2 Sat by Pulse 96 Oximetry EKG Findings - EKG Comments: EKG Findings:: An EKG was obtained and was interpreted by myself showing a rate of 86, AR interval 152, QRS duration 104 and QTC of 399. This EKG showed a normal sinus rhythm with no ST segment elevation or depression noted. Medical Decision Making - Medical Decision Making Was pt. sent in by a medical professional or institution (, PA, BUILDING WRECKER, urgent care, hospital, or group home...) When possible be specific @ -No Did you speak to anyone other than the patient for history (EMS, parent, family, police, friend...)? What history was obtained from this source @ -Yes, EMS Did you review nursing and triage notes (agree or disagree)? Why? @ -I reviewed and agree with nursing and triage notes Were old charts reviewed (outside hosp., previous admission, EMS record, old EKG, old radiological studies, urgent care reports/EKG's, group home records)? Report findings @ -No old charts were reviewed Differential Diagnosis (chest pain, altered mental status, abdominal pain women, abdominal pain men, vaginal bleeding, weakness, fever, dyspnea, syncope, headache, dizziness, GI bleed, back pain, seizure, CVA, palpatations, mental health)? @ -Postop wound infection, sepsis, UTI EKG interpreted by me (3pts min.). @ -As above X-rays interpreted by me (1pt min.). @ -Chest x-ray was obtained and was interpreted by myself showing clearing of the linear infiltrate atelectasis in the left lower lobe compared to the old exam. CT interpreted by me (1pt min.). @ -CT of the thoracic and lumbar spine with contrast was obtained was interpreted by myself showing multilevel fusion surgery. There was multilevel laminectomy defect which is obscured by a metal artifacts. There is subcutaneous fluid consistent with recent postsurgical changes and seroma or hematoma. Abscess is not excluded. U/S interpreted by me (1pt. min.). @ -None done What testing was considered but not performed or refused? (CT, X-rays, U/S, labs)? Why? @ -None What meds were considered but not given or refused? Why? @ -None Did you discuss the management of the patient with other professionals (professionals i.e. , PA, BUILDING WRECKER, lab, RT, psych nurse, social sciences professor, proposal specialist, teacher, chief green officer, caseworker intake)? Give summary @ -Yes, [facility] was contacted and accepted the patient for admission. Dr. Hurtado was contacted and did agree to be placed on consult. Was smoking cessation discussed for >3mins.? @ -No Was critical care preformed (if so, how long)? @ -No Were there social determinants of health that impacted care today? How? (Homelessness, low income, unemployed, alcoholism, drug addiction, transportation, low edu. Level, literacy, decrease access to med. care, fdc, rehab)? @ -No Was there de-escalation of care discussed even if they declined (Discuss DNR or withdrawal of care, Hospice)? DNR status @ -No What co-morbidities impacted this encounter? (DM, HTN, Smoking, COPD, CAD, Cancer, CVA, ARF, Chemo, Hep., AIDS, mental health diagnosis, sleep apnea, morbid obesity)? @ -None Was patient admitted / discharged? Hospital course, mention meds given and route, prescriptions, significant lab abnormalities, going to OR and other pertinent info. @ -The patient was seen and evaluated in the emergency department. Physical exam, the patient was able to answer all questions appropriately and was not in any acute distress. The patient was however intermittently confused. Vital signs admission showed a fever of 103.3F. The rest of the vital signs were within normal limits. Laboratory workup was obtained per sepsis protocol. The patient did receive the 30 mL per KG of normal saline as well as obtained blood cultures. The patient received 1 g Rocephin initially in order to maintain sepsis protocol. The patient did continue to remain stable. Computed tomography scan was obtained that showed possible postop infection, seroma or hematoma. The orthopedic surgeon on-call was contacted and accepted the patient for admission. Medicine will be placed on consult as well as infectious disease. The patient was told of this plan and was agreeable. The patient was admitted in stable condition. Undiagnosed new problem with uncertain prognosis? @ -No Drug Therapy requiring intensive monitoring for toxicity (Heparin, Nitro, Insulin, Cardizem)? @ -No Were any procedures done? @ -No Diagnosis/symptom? @ -Sepsis, secondary to postop infection Acute, or Chronic, or Acute on Chronic? @ -Acute Uncomplicated (without systemic symptoms) or Complicated (systemic symptoms)? @ -Complicated Side effects of treatment? @ -No Exacerbation, Progression, or Severe Exacerbation? @ -No Poses a threat to life or bodily function? How? (Chest pain, [place], [place], pneumonia, PE, COPD, DKA, ARF, appy, cholecystitis, CVA, Diverticulitis, Homicidal, Suicidal, threat to staff... and all critical care pts) @ -Yes, worsening sepsis and worsening postop infection can cause epidural hematomas and abscesses and permanent damage and possible . - Lab Data Result diagrams: 12/15/22 23:02 12/15/22 23:02 Lab Results 12/15/22 12/15/22 12/15/22 Range/Units 23:00 23:02 23:02 WBC 15.7 H (3.8-10.6) k/uL RBC 3.85 (3.80-5.40) m/uL Hgb 12.4 (11.4-16.0) gm/dL Hct 38.0 (34.0-46.0) % MCV 98.9 (80.0-100.0) fL MCH 32.2 (25.0-35.0) pg MCHC 32.6 (31.0-37.0) g/dL RDW 13.5 (11.5-15.5) % Plt Count 349 (150-450) k/uL MPV 7.8 Neutrophils % 92 % Lymphocytes % 3 % Monocytes % 3 % Eosinophils % 1 % Basophils % 0 % Neutrophils # 14.5 H (1.3-7.7) k/uL Lymphocytes # 0.5 L (1.0-4.8) k/uL Monocytes # 0.4 (0-1.0) k/uL Eosinophils # 0.2 (0-0.7) k/uL Basophils # 0.0 (0-0.2) k/uL PT 11.1 (9.0-12.0) sec INR 1.1 (<1.2) APTT 26.2 (22.0-30.0) sec Sodium (137-145) mmol/L Potassium (3.5-5.1) mmol/L Chloride (98-107) mmol/L Carbon Dioxide (22-30) mmol/L Anion Gap mmol/L BUN (7-17) mg/dL Creatinine (0.52-1.04) mg/dL Est GFR (CKD-EPI)AfAm (>60 ml/min/1.73 sqM) Est GFR (CKD-EPI)NonAf (>60 ml/min/1.73 sqM) Glucose (74-99) mg/dL POC Glucose (mg/dL) 128 H (70-110) mg/dL POC Glu Simulation Educator ID Marcos Whiteside Plasma Lactic Acid Olu (0.7-2.0) mmol/L Calcium (8.4-10.2) mg/dL Total Bilirubin (0.2-1.3) mg/dL AST (14-36) U/L ALT (4-34) U/L Alkaline Phosphatase (38-126) U/L Total Protein (6.3-8.2) g/dL Albumin (3.5-5.0) g/dL Urine Color Urine Appearance (Clear) Urine pH (5.0-8.0) Ur Specific [place] (1.001-1.035) Urine Protein (Negative) Urine Glucose (UA) (Negative) Urine Ketones (Negative) Urine Blood (Negative) Urine Nitrite (Negative) Urine Bilirubin (Negative) Urine Urobilinogen (<2.0) mg/dL Ur Leukocyte Esterase (Negative) Urine RBC (0-5) /hpf Urine WBC (0-5) /hpf Ur Squamous Epith Cells (0-4) /hpf Urine Bacteria (None) /hpf 12/15/22 12/15/22 12/16/22 Range/Units 23:02 23:02 00:19 WBC (3.8-10.6) k/uL RBC (3.80-5.40) m/uL Hgb (11.4-16.0) gm/dL Hct (34.0-46.0) % MCV (80.0-100.0) fL MCH (25.0-35.0) pg MCHC (31.0-37.0) g/dL RDW (11.5-15.5) % Plt Count (150-450) k/uL MPV Neutrophils % % Lymphocytes % % Monocytes % % Eosinophils % % Basophils % % Neutrophils # (1.3-7.7) k/uL Lymphocytes # (1.0-4.8) k/uL Monocytes # (0-1.0) k/uL Eosinophils # (0-0.7) k/uL Basophils # (0-0.2) k/uL PT (9.0-12.0) sec INR (<1.2) APTT (22.0-30.0) sec Sodium 135 L (137-145) mmol/L Potassium 3.7 (3.5-5.1) mmol/L Chloride 103 (98-107) mmol/L Carbon Dioxide 28 (22-30) mmol/L Anion Gap 4 mmol/L BUN 9 (7-17) mg/dL Creatinine 0.85 (0.52-1.04) mg/dL Est GFR (CKD-EPI)AfAm 84 (>60 ml/min/1.73 sqM) Est GFR (CKD-EPI)NonAf 73 (>60 ml/min/1.73 sqM) Glucose 123 H (74-99) mg/dL POC Glucose (mg/dL) (70-110) mg/dL POC Glu Simulation Educator ID Plasma Lactic Acid Olu 1.5 (0.7-2.0) mmol/L Calcium 8.0 L (8.4-10.2) mg/dL Total Bilirubin 1.0 (0.2-1.3) mg/dL AST 24 (14-36) U/L ALT 20 (4-34) U/L Alkaline Phosphatase 106 (38-126) U/L Total Protein 6.0 L (6.3-8.2) g/dL Albumin 3.5 (3.5-5.0) g/dL Urine Color Yellow Urine Appearance Clear (Clear) Urine pH 6.5 (5.0-8.0) Ur Specific [place] 1.015 (1.001-1.035) Urine Protein Negative (Negative) Urine Glucose (UA) Negative (Negative) Urine Ketones Negative (Negative) Urine Blood Trace H (Negative) Urine Nitrite Negative (Negative) Urine Bilirubin Negative (Negative) Urine Urobilinogen <2.0 (<2.0) mg/dL Ur Leukocyte Esterase Negative (Negative) Urine RBC 1 (0-5) /hpf Urine WBC 1 (0-5) /hpf Ur Squamous Epith Cells 3 (0-4) /hpf Urine Bacteria Few H (None) /hpf Disposition Clinical Impression: Post op infection, Sepsis Disposition: ADMITTED IP TO THIS [facility] Condition: Stable Is patient prescribed a controlled substance at d/c from ED?: No Referrals: Nathanael Nogueira MD [Primary Care Provider] - 1-2 days Time of Disposition: 01:00 Decision to Admit Reason: Admit from EC Decision Date: 12/16/22 Decision Time: 01:00
[2022-12-16 00:42] LABS: Appearance,Urine Clear (Clear); Bacteria,Urine Few /hpf; Bilirubin,Urine Negative (Negative); Blood,Urine Trace (Negative); Color,Urine Yellow; Glucose,Urine (UA) Negative (Negative); Ketones,Urine Negative (Negative); Leukocyte Esterase,Urine Negative (Negative); Nitrite,Urine Negative (Negative); PH, Urine 6.5 (5.0-8.0); Protein,Urine Negative (Negative); RBC,Urine 1 /hpf (0-5); Specific Gravity,Urine 1.015 (1.001-1.035); Squamous Epithelial Cell,Urine 3 /hpf (0-4); Urobilinogen,Urine <2.0 mg/dL (<2.0); WBC,Urine 1 /hpf (0-5)
[2022-12-16] MEDS: SODIUM CHLORIDE 0.9% 500 ML 500 ML IV SCH (00:58)
--- NOTE | 2022-12-16 01:11 | XR ---
EXAMINATION TYPE: XR chest 1V portable DATE OF EXAM: 12/16/2022 COMPARISON: 05/06/2023 HISTORY: Tube placement TECHNIQUE: Single view FINDINGS: Heart and mediastinum are normal. Lungs are clear. Diaphragm is normal. Bony thorax is inta ct. IMPRESSION: Normal chest There is clearing of the linear infiltrate and atelectasis left lower lobe compared to old exam.
--- NOTE | 2022-12-16 01:18 | CT ---
EXAMINATION TYPE: CT thor lumbar spine w con DATE OF EXAM: 12/16/2022 COMPARISON: HISTORY: recent incomplete lumbar sx pt presents with pain and fever CT DLP: 1770.6 mGycm Automated exposure control for dose reduction was used. CONTRAST: Performed with IV Contrast, patient injected with 100 mL of Isovue 300. Images obtained from the level of T1-S1 vertebra with the IV contrast. The thoracic and lumbar vertebrae have normal alignment. There is posterior skin dilia in the mid a nd lower lumbar spine. There are rods and screws fusing posteriorly the lumbar spine from level of L3 -S1. There is a disc prosthesis at L5-S1. No lumbar or thoracic compression fracture. There is hypert rophic degenerative anterior spur formation in the mid and lower thoracic spine and throughout the kelly mbar spine. No focal bone destruction. No thoracic paraspinal mass. Sacroiliac joints are intact. The re is some subcutaneous fluid at the surgery site in the midline. There is neural stimulator in the s acrum on the right side. No pathologic enhancement. IMPRESSION: Multilevel fusion surgery. Multilevel laminectomy defect which is obscured by the metal artifact. Sub cutaneous fluid consistent with recent postsurgical changes and seroma and hematoma. Abscess not excl uded at this point..
[2022-12-16] MEDS ORDERED: NALOXONE 0.4 MG/ML 1 ML VIAL IV PRN (02:03)
[2022-12-16] MEDS: MORPHINE SULFATE 4 MG/ML SYRINGE IV PRN ×5 (03:33→21:04)
--- NOTE | 2022-12-16 03:37 | P.HPIM ---
History of Present Illness H&P Date: 12/16/22 The patient is a 62-year-old female with a PMH of coronary artery disease status post 6 stents, hypertension, and hyperlipidemia, who had recently undergone a lumbar decompression and fusion L5 to S1 surgery on 12/02 with intraoperative V. fib subsequently presents to the emergency room with complaints of lower back pain and fever. Patient reports that over the past 2-3 days, she has developed gradually worsening lower back pain, now 10 out of 10 and constant, accompanied by fever at home. She denies noticing any drainage from the surgical sites. Denies pain in the lower extremities. Denies weakness, numbness, tingling. Denies chest pain or shortness of breath. CT thoracic and lumbar spine with contrast revealed subcutaneous fluid consistent with recent postsurgical changes and seroma and hematoma with abscess not excluded. Review of systems: Pertinent positives and negatives as discussed in HPI, a complete review of systems was performed and all other systems are negative. Physical examination: Vital signs reviewed General: non toxic, no distress, appears at stated age, obese Derm: Midline back incision with dilia with erythema and some purulence throughout, warm Head: atraumatic, normocephalic, symmetric Eyes: EOMI, no lid lag, anicteric sclera, pupils equal round reactive to light ENT: Nose and ears atraumatic Neck: No cervical lymphadenopathy, trachea midline, supple Mouth: no lip lesion, mucus membranes moist Cardiovascular: S1S2 reg, systolic murmur appreciated, positive dorsalis pedis pulse bilateral, no edema Lungs: CTA bilateral, no rhonchi, no rales, no accessory muscle use Abdominal: soft, nontender to palpation, no guarding Ext: muscle strength 5 out of 5 in all 4 extremities grossly, no gross muscle atrophy, no contractures, Neuro: CN II-XI grossly intact, no gross focal neuro deficits Psych: Alert, oriented, appropriate affect Assessment: Sepsis secondary to postsurgical infection following lumbar decompression fusion Chronic conditions: Coronary artery disease, hypertension, hyperlipidemia Imaging: CT thoracic and lumbar spine with contrast revealed subcutaneous fluid consistent with recent postsurgical changes and seroma and hematoma with abscess not excluded. Chest x-ray was unremarkable. EKG revealed sinus rhythm at [address]/T-wave changes noted as reviewed by me. Data Review: Vital signs upon arrival at the emergency room or temp 103.3F, BP 102/60, pulse 85, respiratory rate 20, and SpO2 95% on room air. Laboratory evaluation remarkable for leukocytosis of 15.7, hemoglobin 12.4, platelets 349, sodium 135, potassium 3.7, glucose 123. Plan: Start patient on Cefazolin 2 gm q8h and Daptomycin 500 mg q24h (MRSA coverage) ID consulted NS 125 ml/hr Blood cultures ordered C/w pain control with Morphine IVP q4h prn Cardiac monitoring C/w home medications once reconcilced Past Medical History Past Medical History: Coronary Artery Disease (CAD), Chest Pain / Angina, Fibromyalgia, Hyperlipidemia, Hypertension, Myocardial Infarction ([place]), Osteoarthritis (OA), Thyroid Disorder Additional Past Medical History / Comment(s): interstitial cystitis; constipation, gallstones, LUMBAR BACK PAIN Last Myocardial Infarction Date:: 2013 History of Any Multi-Drug Resistant Organisms: None Reported Past Surgical History: Back Surgery, Bladder Surgery, Breast Surgery, Cholecystectomy, Heart Catheterization With Stent, Hysterectomy, Orthopedic Surgery Additional Past Surgical History / Comment(s): bladder stimulator, neck surgery, total 6 cardiac stents - back fusion, neck fusion, jeff bunionectomy, revision of back surgery screws, cage and rods were suppose to be placed but DR Nova doesn't see them on imaging. Past Anesthesia/Blood Transfusion Reactions: No Reported Reaction Date of Last Stent Placement:: approx 3 yrs ago Past Psychological History: Anxiety, Bipolar, Depression, Panic Disorder Smoking Status: Former smoker - Past Family History Father Family Medical History: Cancer Medications and Allergies Home Medications Medication Instructions Recorded Confirmed Type Metoprolol Succinate (ER) [Toprol 25 mg PO HS 07/10/21 12/02/22 History XL] Pregabalin [Lyrica] 150 mg PO TID 07/18/21 12/02/22 History Clopidogrel Bisulfate [Plavix] 75 mg PO DAILY 01/22/22 12/02/22 History Levothyroxine Sodium [Synthroid] 125 mcg PO DAILY 06/18/22 12/02/22 History QUEtiapine [SEROquel] 400 mg PO HS 30 Days tab 06/19/22 12/02/22 Rx Cyclobenzaprine [Flexeril] 10 mg PO HS 09/23/22 12/02/22 History Amitriptyline HCl [Elavil] 25 mg PO HS 10/30/22 12/02/22 History DULoxetine HCL [Cymbalta] 120 mg PO HS 10/30/22 12/02/22 History Oxybutynin Chloride [Oxybutynin 10 mg PO HS 10/30/22 12/02/22 History Chloride ER] Aspirin 81 mg PO DAILY #30 tab 11/01/22 12/02/22 Rx Atorvastatin [Lipitor] 80 mg PO DAILY #30 tab 12/09/22 Rx Clopidogrel [Plavix] 75 mg PO DAILY #30 tab 12/09/22 Rx HYDROcodone/APAP 7.5-325MG [[place] 1 each PO Q4HR PRN #42 tab 12/09/22 Rx 7.5] Pantoprazole [Protonix] 40 mg PO DAILY #30 tab 12/09/22 Rx Allergies Allergy/AdvReac Type Severity Reaction Status Date / Time ciprofloxacin [From Cipro] Allergy Anaphylaxis Verified 12/02/22 06:29 Penicillins Allergy Swelling/Hi Verified 12/02/22 06:29 ves vancomycin Allergy Dyspnea Verified 12/02/22 06:29 ketorolac tromethamine AdvReac Itching Verified 12/02/22 06:29 [From Toradol] NSAIDS (Non-Steroidal AdvReac STOMACH Verified 12/02/22 06:29 Anti-Inflamma ULCER Physical Exam Vitals: Vital Signs Temp Pulse Resp BP Pulse Ox 12/16/22 02:42 99.2 F 12/16/22 02:30 68 17 98/55 96 12/16/22 02:00 67 14 101/75 94 L 12/16/22 01:30 68 17 92/46 95 12/16/22 00:30 73 16 104/63 96 12/16/22 00:00 78 17 107/60 94 L 12/15/22 23:37 80 18 110/61 12/15/22 23:30 82 112/62 94 L 12/15/22 23:15 82 18 116/57 12/15/22 23:02 102.6 F H 12/15/22 23:00 86 17 117/57 12/15/22 22:45 85 16 102/60 12/15/22 22:31 85 16 94 L 12/15/22 22:25 103.3 F H 85 20 95 Intake and Output 12/15/22 12/15/22 12/16/22 14:59 22:59 06:59 Other: Weight 74.843 kg Results CBC & Chem 7: 12/15/22 23:02 12/15/22 23:02 Labs: Abnormal Lab Results - Last 24 Hours (Table) 12/15/22 12/15/22 12/15/22 Range/Units 23:00 23:02 23:02 WBC 15.7 H (3.8-10.6) k/uL Neutrophils # 14.5 H (1.3-7.7) k/uL Lymphocytes # 0.5 L (1.0-4.8) k/uL Sodium 135 L (137-145) mmol/L Glucose 123 H (74-99) mg/dL POC Glucose (mg/dL) 128 H (70-110) mg/dL Calcium 8.0 L (8.4-10.2) mg/dL Total Protein 6.0 L (6.3-8.2) g/dL Urine Blood (Negative) Urine Bacteria (None) /hpf 12/16/22 Range/Units 00:19 WBC (3.8-10.6) k/uL Neutrophils # (1.3-7.7) k/uL Lymphocytes # (1.0-4.8) k/uL Sodium (137-145) mmol/L Glucose (74-99) mg/dL POC Glucose (mg/dL) (70-110) mg/dL Calcium (8.4-10.2) mg/dL Total Protein (6.3-8.2) g/dL Urine Blood Trace H (Negative) Urine Bacteria Few H (None) /hpf
[2022-12-16] MEDS: DAPTOmycin 500 MG in SODIUM CHLORIDE 0.9% 50 ML IVPB SCH (03:59)
[2022-12-16] MEDS: SODIUM CHLORIDE 0.9% 1,000 ML IV SCH ×3 (03:59→21:23)
[2022-12-16] MEDS: ACETAMINOPHEN TAB 325 MG TAB PO PRN ×2 (09:17→19:25)
--- NOTE | 2022-12-16 10:10 | P.HPOR ---
History of Present Illness H&P Date: 12/16/22 Chief Complaint: AMS, fever, post-surgical incision drainage History of Presenting Illness Patient is a pleasant 62-year-old female who presented to the ER brought in by her family due to altered mental status, fever, and incisional drainage from the lumbar spine. On 12/02/22 patient had presented for surgical intervention by Dr. Nova of the lumbar spine, revision [id number] decompression and fusion. Procedure was aborted due to a V. fib event, resulting in a crash closure and transferred into ICU. Patient currently states she has had increased lower back pain over the past 2-3 days. She reported that over the weekend she had increased incisional drainage, but states this had stopped a couple of days ago. Patient denies any numbness or tingling to bilateral lower extremities. Surgical incision is approximated, dilia intact. No drainage noted. Patient is ambulatory in room independently. Review of Systems Pertinent positives and negatives as discussed in HPI, a complete review of systems was performed and all other systems are negative. Physical Examination General: The patient is awake and alert, in no acute distress Skin: Skin is warm and dry with no obvious rashes or lesions. Surgical incision to the lumbar spine, dilia intact. Incision is approximated with scabbing present. No drainage noted. Periwound is slight redness and warm to touch. Eye: Pupils are equal, round and reactive to light, extra-ocular movements are intact; there is normal conjunctiva bilaterally. Neck: The neck is supple, there is no tenderness and ROM intact. Cardiovascular: There is a regular rate and rhythm. No murmur, rub or gallop is appreciated. Respiratory: Lungs are clear to auscultation, respirations are non-labored, breath sounds are equal. Gastrointestinal: Soft, non-distended, non-tender abdomen. Back: There is no tenderness to palpation in the midline, paralumbar, parathoracic or buttocks region. There is no obvious deformity. Musculoskeletal: ROM limited secondary to pain and stiffness from surgical procedure. Shoulder abduction 5/5, elbow flexors 5/5, wrist dorsiflexors 5/5. finger abductor 5/5, shell fisherman 5/5, hip flexor 5/5, knee flexor 5/5, ankle dorsiflexor 5/5, ankle plantarflexion 5/5 and extensor hallucis 5/5. Neurological: CN 2-12 intact. There are no obvious motor or sensory deficits. Movement and coordination equal and intact. Sensory exam to light touch intact C5-T1 and intact from L2-S1. Reflexes 2/4 in bilateral upper and lower extremities. Negative Hoffmans, babinski, and clonus signs. Psychiatric: Cooperative, appropriate mood & affect, normal judgment. Assessment and Plan CT of the thoracic and lumbar spine demonstrates multilevel fusion surgery. Multilevel laminectomy defect which is obscured by the metal artifact. Vigil bcutaneous fluid consistent with recent postsurgical changes and seroma and hematoma. Abscess not excluded at this point. 1. s/p Revision posteriolateral fusion L3-S1 with Removal of hardware L4-S1 2. Post surgical site infection We will continue to monitor incision, labs, and patient symptoms at this time. We may proceed with irrigation and debridement with decompression later this week if indicated. -Appreciate [employer] consultant and team management. -Consult to Infectious Disease -Consult Cardiology for possible surgical clearance -Consult to Pulmonary for possible surgical clearance -Continue with IV antibiotic -Activity: Ambulate QID, OOB all meals, up and about, limit lifting bending twisting to less than 5 lbs. Use walker or cane if needed for stability. -Daily PT/OT, increase ambulation strength and balance. -Brace when up and about, not needed in bed or chair -Pain control: Adequate at this time -Meds: reviewed -GI ppx: senna, Miralax -DVT PPX: OK to restart Heparin tonight -Hygiene: Shower today. Maintain dressing clean and dry. Meticulous cleaning after BMs away from the incision site -Encourage IS 10x/hr -Dispo: pending I reviewed and discussed this case with my attending Dr. Nova, whom has reviewed this chart and films and is in agreement with assessment and plan of care as outlined above. I have personally seen and examined the patient, performed the documentation and the assessment and plan as written. Number of minutes spent on the visit: 15m. Past Medical History Past Medical History: Coronary Artery Disease (CAD), Chest Pain / Angina, Fibromyalgia, Hyperlipidemia, Hypertension, Myocardial Infarction ([place]), Osteo arthritis (OA), Thyroid Disorder Additional Past Medical History / Comment(s): interstitial cystitis; constipation, gallstones, LUMBAR BACK PAIN Last Myocardial Infarction Date:: 2013 History of Any Multi-Drug Resistant Organisms: None Reported Past Surgical History: Back Surgery, Bladder Surgery, Breast Surgery, Cholecystectomy, Heart Catheterization With Stent, Hysterectomy, Orthopedic Surgery Additional Past Surgical History / Comment(s): bladder stimulator, neck surgery, total 6 cardiac stents - back fusion, neck fusion, jeff bunionectomy, revision of back surgery screws, cage and rods were suppose to be placed but DR Nova doesn't see them on imaging. Past Anesthesia/Blood Transfusion Reactions: No Reported Reaction Date of Last Stent Placement:: approx 3 yrs ago Past Psychological History: Anxiety, Bipolar, Depression, Panic Disorder Additional Psychological History / Comment(s): "stress related" Smoking Status: Former smoker Past Alcohol Use History: None Reported Additional Past Alcohol Use History / Comment(s): quit smoking 11/2022 Past Drug Use History: None Reported - Past Family History Father Family Medical History: Cancer Medications and Allergies Home Medications Medication Instructions Recorded Confirmed Type Metoprolol Succinate (ER) [Toprol 25 mg PO HS 07/10/21 12/16/22 History XL] Pregabalin [Lyrica] 150 mg PO TID 07/18/21 12/16/22 History Levothyroxine Sodium [Synthroid] 125 mcg PO DAILY 06/18/22 12/16/22 History QUEtiapine [SEROquel] 400 mg PO HS 30 Days tab 06/19/22 12/16/22 Rx Cyclobenzaprine [Flexeril] 10 mg PO HS 09/23/22 12/16/22 History Amitriptyline HCl [Elavil] 25 mg PO HS 10/30/22 12/16/22 History DULoxetine HCL [Cymbalta] 120 mg PO HS 10/30/22 12/16/22 History Oxybutynin Chloride [Oxybutynin 10 mg PO HS 10/30/22 12/16/22 History Chloride ER] Aspirin 81 mg PO DAILY #30 tab 11/01/22 12/16/22 Rx Atorvastatin [Lipitor] 80 mg PO DAILY #30 tab 12/09/22 12/16/22 Rx Clopidogrel [Plavix] 75 mg PO DAILY #30 tab 12/09/22 12/16/22 Rx Pantoprazole [Protonix] 40 mg PO DAILY #30 tab 12/09/22 12/16/22 Rx HYDROcodone/APAP 7.5-325MG [Grant 1 tab PO Q4HR PRN 03/14/23 03/14/23 History 7.5] Allergies Allergy/AdvReac Type Severity Reaction Status Date / Time ciprofloxacin [From Cipro] Allergy Anaphylaxis Verified 12/16/22 07:45 Penicillins Allergy Swelling/Hi Verified 12/16/22 07:45 ves vancomycin Allergy Dyspnea Verified 12/16/22 07:45 ketorolac tromethamine AdvReac Itching Verified 12/16/22 07:45 [From Toradol] NSAIDS (Non-Steroidal AdvReac STOMACH Verified 12/16/22 07:45 Anti-Inflamma ULCER Results - Labs Labs: Abnormal Lab Results - Last 24 Hours (Table) 12/15/22 12/15/22 12/15/22 Range/Units 23:00 23:02 23:02 WBC 15.7 H (3.8-10.6) k/uL Neutrophils # 14.5 H (1.3-7.7) k/uL Lymphocytes # 0.5 L (1.0-4.8) k/uL Sodium 135 L (137-145) mmol/L Glucose 123 H (74-99) mg/dL POC Glucose (mg/dL) 128 H (70-110) mg/dL Calcium 8.0 L (8.4-10.2) mg/dL Total Protein 6.0 L (6.3-8.2) g/dL Urine Blood (Negative) Urine Bacteria (None) /hpf 12/16/22 Range/Units 00:19 WBC (3.8-10.6) k/uL Neutrophils # (1.3-7.7) k/uL Lymphocytes # (1.0-4.8) k/uL Sodium (137-145) mmol/L Glucose (74-99) mg/dL POC Glucose (mg/dL) (70-110) mg/dL Calcium (8.4-10.2) mg/dL Total Protein (6.3-8.2) g/dL Urine Blood Trace H (Negative) Urine Bacteria Few H (None) /hpf H & H 12/15/22 Range/Units 23:02 Hgb 12.4 (11.4-16.0) gm/dL Hct 38.0 (34.0-46.0) % Coagulation 12/15/22 Range/Units 23:02 INR 1.1 (<1.2) Result Diagrams: 03/13/23 23:02 12/15/22 23:02
--- NOTE | 2022-12-16 12:12 | P.CNPUL ---
History of Present Illness Consult date: 12/16/22 Requesting physician: Nima Nova Chief complaint: Fever, Altered mental status History of present illness: This is a 62-year-old female patient with a known history of coronary artery disease with previous stent placement, hyperlipidemia, hypertension, urinary incontinence, hypothyroidism, chronic tobacco dependence of nearly 50 years, chronic back pain. She had been admitted on 12/02/2022 for an elective L4-S1 decompression and fusion. During the procedure however she had developed hypotension, ventricular fibrillation and required fluid resuscitation and epinephrine and norepinephrine then the surgical site was urgently closed without completion and she was intubated on the mechanical ventilator and we had seen the patient in the intensive care unit. She did undergo cardiac catheterization that admission and was found to have no significant disease in the proximal RCA that had previously been stented. There was a branch of the RCA that was 60% to 70% narrowed. Major diagonal has 60-70% narrowing. LAD was patent. Left main and circumflex are free of significant disease. No further progression of her previous CAD. She subsequently recovered and was discharged home on 12/09/2022. She still had dilia intact. She did have some oozing of her surgical site that she states she was placing pads on and the drainage has stopped the last couple of days. She presented here to the emergency room last evening with a fever of 103 and altered mental status reported by her mom and brother. Chest x-ray revealed no acute cardiopulmonary process. A computed tomography scan can of the spine revealed multilevel laminectomy defects which is obscured by the metal artifact. Subcutaneous fluid consistent with recent postsurgical changes and seroma and hematoma. Abscess could not be excluded. White count 15.7. Hemoglobin 12.4. Sodium 135. Potassium 3.7. Bicarb 28. BUN 9. Creatinine 0.85. Glucose 123. C-reactive protein 17.4. AST 24. ALT 20. Urinalysis clean. She had been initiated on ceftriaxone and subsequently cefazolin. Infectious disease has been consulted. She is now on daptomycin and cefepime. She is seen today in consultation for possible return to the OR and preop clearance. She currently denies any shortness of breath, cough or congestion. She states she has not smoked since October 2022. She is not on home oxygen. She is currently maintaining O2 saturation in the 90s on room air. She remains febrile with a temperature of 102.3. No tachycardia. No tachypnea. 0.9% normal saline at 125 ML's per hour. Review of Systems REVIEW OF SYSTEMS: CONSTITUTIONAL: Positive for fever. Denies any recent significant weight loss or weight gain. EYES: Denies change in vision. EARS, NOSE, MOUTH, THROAT: Denies headaches, denies sore throat. CARDIOVASCULAR: Denies chest pain, palpitations or syncopal episodes. RESPIRATORY: Denies shortness of breath, cough, congestion or hemoptysis. GASTROINTESTINAL: Denies change in appetite, denies abdominal pain GENITOURINARY: Denies hematuria, denies infections. MUSKULOSKELETAL: Denies pain, denies swelling. INTEGUMENTARY: Denies rash, denies eczema. NEUROLOGICAL: Positive for altered mental status. Denies recent memory loss, no recent seizure activity. PSYCHIATRIC: Denies anxiety, denies depression. HEMATOLOGIC/LYMPHATIC: Denies anemia, denies enlarged lymph nodes. Past Medical History Past Medical History: Coronary Artery Disease (CAD), Chest Pain / Angina, Fibromyalgia, Hyperlipidemia, Hypertension, Myocardial Infarction ([place]), Osteoar thritis (OA), Thyroid Disorder Additional Past Medical History / Comment(s): interstitial cystitis; constipation, gallstones, LUMBAR BACK PAIN Last Myocardial Infarction Date:: 2013 History of Any Multi-Drug Resistant Organisms: None Reported Past Surgical History: Back Surgery, Bladder Surgery, Breast Surgery, Cholecystectomy, Heart Catheterization With Stent, Hysterectomy, Orthopedic Surgery Additional Past Surgical History / Comment(s): bladder stimulator, neck surgery, total 6 cardiac stents - back fusion, neck fusion, jeff bunionectomy, revision of back surgery screws, cage and rods were suppose to be placed but DR Nova doesn't see them on imaging. Past Anesthesia/Blood Transfusion Reactions: No Reported Reaction Date of Last Stent Placement:: approx 3 yrs ago Past Psychological History: Anxiety, Bipolar, Depression, Panic Disorder Additional Psychological History / Comment(s): "stress related" Smoking Status: Former smoker Past Alcohol Use History: None Reported Additional Past Alcohol Use History / Comment(s): quit smoking 11/2022 Past Drug Use History: None Reported - Past Family History Father Family Medical History: Cancer Medications and Allergies Home Medications Medication Instructions Recorded Confirmed Type Metoprolol Succinate (ER) [Toprol 25 mg PO HS 07/10/21 12/16/22 History XL] Pregabalin [Lyrica] 150 mg PO TID 07/18/21 12/16/22 History Levothyroxine Sodium [Synthroid] 125 mcg PO DAILY 06/18/22 12/16/22 History QUEtiapine [SEROquel] 400 mg PO HS 30 Days tab 06/19/22 12/16/22 Rx Cyclobenzaprine [Flexeril] 10 mg PO HS 09/23/22 12/16/22 History Amitriptyline HCl [Elavil] 25 mg PO HS 10/30/22 12/16/22 History DULoxetine HCL [Cymbalta] 120 mg PO HS 10/30/22 12/16/22 History Oxybutynin Chloride [Oxybutynin 10 mg PO HS 10/30/22 12/16/22 History Chloride ER] Aspirin 81 mg PO DAILY #30 tab 11/01/22 12/16/22 Rx Atorvastatin [Lipitor] 80 mg PO DAILY #30 tab 12/09/22 12/16/22 Rx Clopidogrel [Plavix] 75 mg PO DAILY #30 tab 12/09/22 12/16/22 Rx Pantoprazole [Protonix] 40 mg PO DAILY #30 tab 12/09/22 12/16/22 Rx HYDROcodone/APAP 7.5-325MG [Inez 1 tab PO Q4HR PRN 12/16/22 12/16/22 History 7.5] Allergies Allergy/AdvReac Type Severity Reaction Status Date / Time ciprofloxacin [From Cipro] Allergy Anaphylaxis Verified 12/16/22 07:45 Penicillins Allergy Swelling/Hi Verified 12/16/22 07:45 ves vancomycin Allergy Dyspnea Verified 12/16/22 07:45 ketorolac tromethamine AdvReac Itching Verified 12/16/22 07:45 [From Toradol] NSAIDS (Non-Steroidal AdvReac STOMACH Verified 12/16/22 07:45 Anti-Inflamma ULCER Physical Exam Vitals: Vital Signs Temp Pulse Pulse Resp BP BP Pulse Ox 12/16/22 10:24 102.3 F H 12/16/22 07:57 16 12/16/22 07:40 100.4 F H 72 16 106/55 94 L 12/16/22 06:20 100.1 F H 12/16/22 03:44 99.2 F 65 18 104/62 95 12/16/22 02:42 99.2 F 12/16/22 02:30 68 17 98/55 96 12/16/22 02:00 67 14 101/75 94 L 12/16/22 01:30 68 17 92/46 95 12/16/22 00:30 73 16 104/63 96 12/16/22 00:00 78 17 107/60 94 L 12/15/22 23:37 80 18 110/61 12/15/22 23:30 82 112/62 94 L 12/15/22 23:15 82 18 116/57 12/15/22 23:02 102.6 F H 12/15/22 23:00 86 17 117/57 12/15/22 22:45 85 16 102/60 12/15/22 22:31 85 16 94 L 12/15/22 22:25 103.3 F H 85 20 95 Intake and Output 12/15/22 12/16/22 12/16/22 22:59 06:59 14:59 Intake Total 125 Balance 125 Intake: Intake, IV Titration 125 Amount Sodium Chloride 0.9% 1, 125 000 ml @ 125 mls/hr IV . Q8H [facility] Rx#:[id number] Other: # Voids 1 1 Weight 74.843 kg 76 kg GENERAL EXAM: Alert, oriented 3, 62-year-old female, on room air, comfortable in no apparent distress. HEAD: Normocephalic. EYES: Normal reaction of pupils, equal size. NOSE: Clear with pink turbinates. THROAT: No erythema or exudates. NECK: No masses, no JVD. CHEST: No chest wall deformity. LUNGS: Equal air entry with no crackles, wheeze, rhonchi or dullness. CVS: S1 and S2 normal with no audible murmur, regular rhythm. ABDOMEN: No hepatosplenomegaly, normal bowel sounds, no guarding or rigidity. SPINE: The patient has a long incision on her back with multiple, multiple dilia with some clear drainage oozing in areas. SKIN: No rashes CENTRAL NERVOUS SYSTEM: No focal deficits, tone is normal in all 4 extremities. EXTREMITIES: There is no peripheral edema. No clubbing, no cyanosis. Per ipheral pulses are intact. Results - Laboratory Findings CBC and BMP: 12/15/22 23:02 12/15/22 23:02 PT/INR, D-dimer PT 11.1 sec (9.0-12.0) 12/15/22 23:02 INR 1.1 (<1.2) 12/15/22 23:02 Abnormal lab findings: Abnormal Labs 12/15/22 12/15/22 12/15/22 23:00 23:02 23:02 WBC 15.7 H Neutrophils # 14.5 H Lymphocytes # 0.5 L Sodium 135 L Glucose 123 H POC Glucose (mg/dL) 128 H Calcium 8.0 L C-Reactive Protein Total Protein 6.0 L Urine Blood Urine Bacteria 12/16/22 12/16/22 00:19 10:16 WBC Neutrophils # Lymphocytes # Sodium Glucose POC Glucose (mg/dL) Calcium C-Reactive Protein 17.4 H Total Protein Urine Blood Trace H Urine Bacteria Few H - Diagnostic Findings Chest x-ray: image reviewed (No acute cardiopulmonary process) Assessment and Plan Assessment: Altered mental status secondary to fever secondary to suspected abscess of the spine. Computed tomography scan reveals multilevel laminectomy defect which is obscured by the metal artifact. Subcutaneous fluid consistent with recent postsurgical changes and seroma and hematoma. Abscess not excluded. Currently on daptomycin and cefepime. Recent, 12/02/2022, surgery for lumbar decompression and fusion L4 to S1 where she had developed hypotension and ventricular fibrillation arrest which was qu ickly aborted. She initially was intubated and on mechanical ventilator in the ICU and she subsequently required covered and was discharged on 12/09/2022. Completion of surgery was planned for a later date. Cardiac catheterization at that time revealed no significant progression of her coronary artery disease Coronary artery disease with previous stents Chronic tobacco dependence of greater than 40 years. Quit in October 2022 Hypertension Hyperlipidemia Obesity Hypothyroidism History of anxiety/depression History of bipolar disorder/panic disorder Plan: The patient was seen and evaluated Chest x-ray, labs and medications reviewed Stable and on room air Cleared for surgery if needed from the pulmonary standpoint Would need clearance from cardiology prior to any procedures Antibiotics per infectious disease We will continue to follow and make further recommendations based on her clinical status I have personally seen and examined the patient, performed the documentation and the assessment and plan as written. Number of minutes spent on the visit: 20.
[2022-12-16] MEDS: CEFEPIME 2 GM in SODIUM CHLORIDE 0.9% 100 ML IVPB SCH ×2 (17:07→17:35)
[2022-12-16] MEDS: PREGABALIN 75 MG CAP PO SCH ×2 (17:19→22:08)
--- NOTE | 2022-12-16 17:19 | P.PN ---
Subjective Progress Note Date: 12/16/22 Hospital course: Patient is a very pleasant 62-year-old female with a past medical history CAD status post stenting 6, recent cardiac arrest on 12/02/22, hypertension, hyperlipidemia, and recent lumbar fusion on 12/02/22 which was was only partially completed and aborted secondary to development of intraoperative V. fib and subsequently going into cardiac arrest on the table during procedure. Patient presented to the emergency department overnight secondary to reports of lower back pain and fever progressively worsening over the past 2 days. She underwent full evaluation in the emergency department. CT thoracic and lumbar spine reve aling subcutaneous fluid consistent with recent postsurgical changes with seroma/hematoma, abscess not excluded at this time. Labs completed and reviewed showing leukocytosis with WBC count of 15.7 elevated , ESR of 51, an elevated CRP of 17.4. Urinalysis was negative for infection. EKG was completed showing normal sinus rhythm at 86 bpm with T-wave inversion/abnormality in leads III and V6 which appears to be a new finding when compared to EKG completed 12/03/22 showing normal sinus rhythm at 83 bpm with no noted T-wave or ST abnormalities showing no signs of acute ischemia upon personal review and interpretation. Blood cultures obtained and sent to lab for analysis. Patient febrile upon arrival temp 103.3F. Patient was started on IV antibiotics and admitted under our services with consultation to orthospine surgery team, infectious disease, pulmonary, and cardiology. Physical exam: Vital signs reviewed and stable. General: Nontoxic, no distress and appears stated age. Derm: Skin warm and dry, normal coloration for ethnicity. Yohan intact to lumbar spine, no signs of dehiscence. Incision is well approximated with no drainage noted, mild erythema surrounding distal lower lumbar incision. Head: Atraumatic, normocephalic and symmetric. Eyes: EOMs intact, no lid lag, and anicteric sclera Mouth: no lip lesions, mucus membranes moist Cardiovascular: regular rate and rhythm with normal S1S2, systolic murmur, positive posterior tibial pulses bilaterally, and cap refill < 2 seconds. Lungs: Respirations even, regular, and unlabored on room air. Lungs CTA bilaterally, no rhonchi, no rales, no wheezing, and no accessory muscle usage. Abdominal: soft, nontender to palpation, no guarding, no appreciable organomegaly Ext: ROM intact. No gross muscle atrophy, no edema, no contractures Neuro: Speech clear, face symmetrical and CN II-XII grossly intact with no noted focal neuro deficits Psych: Alert and oriented to person, place, time, and situation. Appropriate and pleasant affect. Assessment and Plan of Care: Postsurgical seroma/hematoma, unable to rule out abscess Sepsis possibly secondary to postsurgical abscess Leukocytosis Status post recent lumbar fusion on 12/02/22 CAD status post stenting 6 and recent intraoperative cardiac arrest on 12/02/22 Hypertension Hyperlipidemia -Labs completed and reviewed showing leukocytosis with WBC count of 15.7 elevated , ESR of 51, an elevated CRP of 17.4. Lactic acid was normal findings at 1.5. -Blood cultures obtained and sent to lab for analysis, we will follow up on results. -CT thoracic and lumbar spine revealing subcutaneous fluid consistent with recent postsurgical changes with seroma/hematoma, abscess not excluded at this time. -Continue with IV antibiotics daptomycin and cefepime -Orthopedic surgery following, reviewed documentation in chart. -Pulmonology following, reviewed documentation in chart. -Cardiology and infectious disease have been consulted. -Order placed for CBC, CMP, and magnesium to be drawn tomorrow morning. CODE STATUS: Full code DVT prophylaxis: SCDs Discussed with: Patient and RN Anticipated discharge date: Clinical course to determine Anticipated discharge place: Home Patient was seen independently by Nurse Pracitioner. This document was prepared using [employer] dictation software. Please allow for errors in rubber attacher, while rare they do occur. I reviewed the documentation as provided by the ANNE above, who is the original author of this note. I agree with the documented assessment and plan, with the following changes: none Objective - Vital Signs Vital signs: Vital Signs Temp 100.4 F H 12/16/22 07:40 Pulse 72 12/16/22 07:40 Resp 16 12/16/22 07:57 BP 106/55 12/16/22 07:40 Pulse Ox 94 L 12/16/22 07:40 FiO2 Intake & Output 12/15/22 12/16/22 12/16/22 18:59 06:59 18:59 Intake Total 125 Balance 125 Weight 76 kg Intake: Intake, IV Titration 125 Amount Sodium Chloride 0.9% 1, 125 000 ml @ 125 mls/hr IV . Q8H [facility] Rx#:[id number] Other: # Voids 1 1 - Labs CBC & Chem 7: 12/15/22 23:02 12/15/22 23:02 Labs: Abnormal Lab Results - Last 24 Hours (Table) 12/15/22 12/15/22 12/15/22 Range/Units 23:00 23:02 23:02 WBC 15.7 H (3.8-10.6) k/uL Neutrophils # 14.5 H (1.3-7.7) k/uL Lymphocytes # 0.5 L (1.0-4.8) k/uL Sodium 135 L (137-145) mmol/L Glucose 123 H (74-99) mg/dL POC Glucose (mg/dL) 128 H (70-110) mg/dL Calcium 8.0 L (8.4-10.2) mg/dL Total Protein 6.0 L (6.3-8.2) g/dL Urine Blood (Negative) Urine Bacteria (None) /hpf 12/16/22 Range/Units 00:19 WBC (3.8-10.6) k/uL Neutrophils # (1.3-7.7) k/uL Lymphocytes # (1.0-4.8) k/uL Sodium (137-145) mmol/L Glucose (74-99) mg/dL POC Glucose (mg/dL) (70-110) mg/dL Calcium (8.4-10.2) mg/dL Total Protein (6.3-8.2) g/dL Urine Blood Trace H (Negative) Urine Bacteria Few H (None) /hpf
[2022-12-16] MEDS: CYCLOBENZAPRINE 10 MG TAB PO SCH (21:03)
[2022-12-16] MEDS: QUEtiapine 400 MG TAB PO SCH (21:03)
[2022-12-16] MEDS: DULoxetine HCL 60 MG CAPSULE.DR PO SCH (21:03)
[2022-12-16] MEDS: OXYBUTYNIN 10 MG TAB.ER.24 PO SCH (21:03)
[2022-12-16] MEDS: AMITRIPTYLINE HCL 25 MG TAB PO SCH (21:03)
[2022-12-16] MEDS: METOPROLOL SUCCINATE (ER) 25 MG TAB.ER.24H PO SCH (21:04)
--- NOTE | 2022-12-16 22:57 | P.CONS ---
History of Present Illness - Reason for Consult Consult date: 12/16/22 Sepsis postoperative infection Requesting physician: Ralf Perez - Chief Complaint Worsening back pain and fever x days - History of Present Illness Patient is a 62-year-old female with multiple comorbidities including coronary artery disease hypertension hyperlipidemia [place] history of chronic back pain in this patient who did have a history of multiple back surgeries patient was recently taken to the OR on November 24, 2022 for revision L3 to pelvis decompression and fusion the procedure was aborted due to V-fib event resulting in the crash closure and transferred to the ICU patient now presenting to the hospital last night for evaluation of mental status changes fever and drainage from the lumbar spine incision symptom has been going on for the last 2 to 3 days with worsening pain patient be complaining of pain to the lumbar spine area to be sharp almost 10 out of 10 in severity without any radiation no weakness or any bowel or bladder problems did have a drainage is mild along with the mental status changes patient presented to the hospital have a fever of 103.3 degree for night patient did have white count of 15.7 with a left shift kidney function has been normal urine has been negative blood cultures obtained which are currently pending patient did have a chest x-ray clearing of the linear infiltrate atelectasis left lower lobe patient also have a thoracic lumbar spine CT multilevel fusion surgery multilevel laminectomy defect subcutaneous fluid consistent with recent postop changes seroma versus hematoma abscess not excluded patient was started on cefazolin and daptomycin infectious disease was consulted for further management of antibiotic therapy Review of Systems Positive point has been mentioned in the HPI rest of the systems are negative Past Medical History Past Medical History: Coronary Artery Disease (CAD), Chest Pain / Angina, Fibromyalgia, Hyperlipidemia, Hypertension, Myocardial Infarction ([place]), Osteoarthritis (OA), Thyroid Disorder Additional Past Medical History / Comment(s): interstitial cystitis; constipation, gallstones, LUMBAR BACK PAIN Last Myocardial Infarction Date:: 2013 History of Any Multi-Drug Resistant Organisms: None Reported Past Surgical History: Back Surgery, Bladder Surgery, Breast Surgery, Cholecystectomy, Heart Catheterization With Stent, Hysterectomy, Orthopedic Surgery Additional Past Surgical History / Comment(s): bladder stimulator, neck surgery, total 6 cardiac stents - back fusion, neck fusion, jeff bunionectomy, revision of back surgery screws, cage and rods were suppose to be placed but DR Nova doesn't see them on imaging. Past Anesthesia/Blood Transfusion Reactions: No Reported Reaction Date of Last Stent Placement:: approx 3 yrs ago Past Psychological History: Anxiety, Bipolar, Depression, Panic Disorder Additional Psychological History / Comment(s): "stress related" Smoking Status: Former smoker Past Alcohol Use History: None Reported Additional Past Alcohol Use History / Comment(s): quit smoking 11/2022 Past Drug Use History: None Reported - Past Family History Father Family Medical History: Cancer Medications and Allergies Home Medications Medication Instructions Recorded Confirmed Type Metoprolol Succinate (ER) [Toprol 25 mg PO HS 07/10/21 12/16/22 History XL] Levothyroxine Sodium [Synthroid] 125 mcg PO DAILY 06/18/22 12/16/22 History QUEtiapine [SEROquel] 400 mg PO HS 30 Days tab 06/19/22 12/16/22 Rx Amitriptyline HCl [Elavil] 25 mg PO HS 10/30/22 12/16/22 History DULoxetine HCL [Cymbalta] 120 mg PO HS 10/30/22 12/16/22 History Oxybutynin Chloride [Oxybutynin 10 mg PO HS 10/30/22 12/16/22 History Chloride ER] Aspirin 81 mg PO DAILY #30 tab 11/01/22 12/16/22 Rx Atorvastatin [Lipitor] 80 mg PO DAILY #30 tab 12/09/22 12/16/22 Rx Clopidogrel [Plavix] 75 mg PO DAILY #30 tab 12/09/22 12/16/22 Rx Pantoprazole [Protonix] 40 mg PO DAILY #30 tab 12/09/22 12/16/22 Rx Cyclobenzaprine [Flexeril] 10 mg PO HS #30 tab 12/23/22 Rx HYDROcodone/APAP 10-325MG [[place] 1 tab PO Q4-6H PRN #32 tab 12/23/22 Rx 10-325] Midodrine [ProAmatine] 5 mg PO AC-TID tab 12/23/22 Rx Pregabalin [Lyrica] 150 mg PO TID #30 cap 12/23/22 Rx Sennosides/Docusate Sodium [Senna 1 each PO DAILY #20 capsule 12/23/22 Rx Plus 8.6-50 mg Softgel] ceFAZolin [Kefzol] 2 gm IVP Q8HR #120 each 12/23/22 Rx polyethylene glycoL 3350 [Miralax] 17 gm PO DAILY packet 12/23/22 Rx Allergies Allergy/AdvReac Type Severity Reaction Status Date / Time ciprofloxacin [From Cipro] Allergy Anaphylaxis Verified 12/16/22 07:45 Penicillins Allergy Swelling/Hi Verified 12/16/22 07:45 ves vancomycin Allergy Dyspnea Verified 12/16/22 07:45 ketorolac tromethamine AdvReac Itching Verified 12/16/22 07:45 [From Toradol] NSAIDS (Non-Steroidal AdvReac STOMACH Verified 12/16/22 07:45 Anti-Inflamma ULCER Physical Exam Vitals: Vital Signs Temp Pulse Pulse Resp BP BP Pulse Ox 12/16/22 10:24 102.3 F H 12/16/22 07:57 16 12/16/22 07:40 100.4 F H 72 16 106/55 94 L 12/16/22 06:20 100.1 F H 12/16/22 03:44 99.2 F 65 18 104/62 95 12/16/22 02:42 99.2 F 12/16/22 02:30 68 17 98/55 96 12/16/22 02:00 67 14 101/75 94 L 12/16/22 01:30 68 17 92/46 95 12/16/22 00:30 73 16 104/63 96 12/16/22 00:00 78 17 107/60 94 L 12/15/22 23:37 80 18 110/61 12/15/22 23:30 82 112/62 94 L 12/15/22 23:15 82 18 116/57 12/15/22 23:02 102.6 F H 12/15/22 23:00 86 17 117/57 12/15/22 22:45 85 16 102/60 12/15/22 22:31 85 16 94 L 12/15/22 22:25 103.3 F H 85 20 95 Intake and Output 12/15/22 12/16/22 12/16/22 22:59 06:59 14:59 Intake Total 125 Balance 125 Intake: Intake, IV Titration 125 Amount Sodium Chloride 0.9% 1, 125 000 ml @ 125 mls/hr IV . Q8H [facility] Rx#:[id number] Other: # Voids 1 1 Weight 74.843 kg 76 kg GENERAL DESCRIPTION: Middle-aged female lying in bed, no distress. No tachypnea or accessory muscle of respiration use. HEENT: Shows Pallor , no scleral icterus. Oral mucous membrane is dry. NECK: Trachea central, no thyromegaly. LUNGS: Unlabored breathing. Clear to auscultation anteriorly. No wheeze or crackle. HEART: S1, S2, regular rate and rhythm. No loud murmur ABDOMEN: Soft, no tenderness , guarding or rigidity, no organomegaly EXTREMITIES: No edema of feet. SKIN: No rash, no masses palpable. Patient did have dilia intact to the lumbosacral spine area no foul-smelling drainage was noticed NEUROLOGICAL: The patient is awake, alert, oriented x3, mood and affect normal. Results CBC & Chem 7: 12/23/22 06:50 12/23/22 06:50 Labs: Abnormal Lab Results - Last 24 Hours (Table) 12/15/22 12/15/22 12/15/22 Range/Units 23:00 23:02 23:02 WBC 15.7 H (3.8-10.6) k/uL Neutrophils # 14.5 H (1.3-7.7) k/uL Lymphocytes # 0.5 L (1.0-4.8) k/uL Sodium 135 L (137-145) mmol/L Glucose 123 H (74-99) mg/dL POC Glucose (mg/dL) 128 H (70-110) mg/dL Calcium 8.0 L (8.4-10.2) mg/dL Total Protein 6.0 L (6.3-8.2) g/dL Urine Blood (Negative) Urine Bacteria (None) /hpf 12/16/22 Range/Units 00:19 WBC (3.8-10.6) k/uL Neutrophils # (1.3-7.7) k/uL Lymphocytes # (1.0-4.8) k/uL Sodium (137-145) mmol/L Glucose (74-99) mg/dL POC Glucose (mg/dL) (70-110) mg/dL Calcium (8.4-10.2) mg/dL Total Protein (6.3-8.2) g/dL Urine Blood Trace H (Negative) Urine Bacteria Few H (None) /hpf Assessment and Plan (1) Post op infection Status: Acute Code(s): T81.40XA - INFECTION FOLLOWING A PROCEDURE, UNSPECIFIED, INIT SNOMED Code(s): 27738468 (2) Sepsis Status: Acute Code(s): A41.9 - SEPSIS, UNSPECIFIED ORGANISM SNOMED Code(s): 89794817 Plan: 1patient presented to hospital with sepsis in this patient with a recent lumbar spine surgery which was aborted because of V-fib and a crash closure with increasing pain to the lumbar spine along with drainage and did have abnormal CT concerning for possible abscess and will need to cover for both gram-positive as well as gram-negative pathogen. 2patient with multiple antibiotic allergies that would limit the number of antibiotics safe to use. 3continue with the daptomycin however discontinue cefazolin start the patient cefepime while waiting for the culture to finalize. 4patient will benefit from I&D and drainage of this fluid seen on the CT of the thoracolumbar spine which should be sent for culture We will follow on clinical condition and cultures to further adjust medication if needed Thank you for this consultation we will follow the patient along with you Time with Patient: Greater than 30
[2022-12-17] MEDS: CEFEPIME 2 GM in SODIUM CHLORIDE 0.9% 100 ML IVPB SCH ×2 (00:07→07:18)
[2022-12-17] MEDS: SODIUM CHLORIDE 0.9% 1,000 ML IV SCH ×3 (04:11→16:16)
[2022-12-17] MEDS: DAPTOmycin 500 MG in SODIUM CHLORIDE 0.9% 50 ML IVPB SCH (04:11)
[2022-12-17] MEDS: MORPHINE SULFATE 4 MG/ML SYRINGE IV PRN ×4 (04:18→18:27)
[2022-12-17] MEDS: LEVOTHYROXINE 125 MCG TAB PO SCH (06:21)
--- NOTE | 2022-12-17 08:30 | P.CRDCN ---
History of Present Illness Consult date: 12/17/22 Chief complaint: Preoperative cardiac assessment History of present illness: The patient is a pleasant 62-year-old female patient was coronary artery disease and prior stenting of the LAD and the patient follows with Dr. Dorantes irregularly as well as hypertension and dyslipidemia and chronic back pain was admitted to the hospital with a change in mental status. We consulted see the patient for preoperative cardiac assessment before noncardiac surgery. The patient was admitted on December 022022 to undergo an elective L4 to S1 decompression. During her surgery and in the middle of the surgery she developed hypotension and also she developed "ventricular arrhythmia". At that point the surgery was terminated. Subsequently the patient underwent further workup including cardiac enzymes came in to be abnormal was elevated troponin with no significant EKG changes. An echo was performed and showed normal biventricular systolic fun ction was no significant valvular abnormalities. Then a heart catheterization was performed by Dr. Dorantes at that point and that revealed patent stent in the LAD was mild to moderate nonobstructive coronary artery disease felt to be the same as before. Medical treatment was advised. The patient was discharged in stable medical condition. She was admitted again to the hospital with a change in mental status and also elevated temperature. Further investigation including computed tomography scan was performed and showed possible abscess. The patient is in process of having surgery. From a cardiac standpoint of view, she remains a stable was no pain in the chest and no shortness of breath and no dizziness or lightheadedness or any feeling of heart racing or fluttering or presyncope or sy ncope. She has been compliant with her medications and currently she is anti- ischemic medications his beta danish at home she was receiving statin and that was stopped. She is not on aspirin because of the surgery. From the cardiac standpoint of view, the patient can proceed with the surgery. Examination is remarkable for stable vital signs with regular rhythm and systolic murmur at the right upper sternal border with a clear breathing sounds bilaterally and no lower extent is edema noted. Assessment Change in mental status Elevated temperature Possible abscess on the computed tomography scan of the spine Coronary artery disease appeared to be stable Hypertension Dyslipidemia Plan The patient is asymptomatic from the cardiac standpoint overview The patient is hemodynamically stable as well She is not experiencing any symptoms consistent was unstable angina and she has no recent arrhythmia and she is not in any overt congestive heart failure Recent echo showed normal biventricular systolic function Recent heart catheterization showed stable coronary artery disease The patient can proceed with the surgery I would advise continue the current dose of beta danish I'm going to restart the patient back on high intensity statin was Lipitor Follow-up with the patient Past Medical History Past Medical History: Coronary Artery Disease (CAD), Chest Pain / Angina, Fibromyalgia, Hyperlipidemia, Hypertension, Myocardial Infarction ([place]), Osteoa rthritis (OA), Thyroid Disorder Additional Past Medical History / Comment(s): interstitial cystitis; constipation, gallstones, LUMBAR BACK PAIN Last Myocardial Infarction Date:: 2013 History of Any Multi-Drug Resistant Organisms: None Reported Past Surgical History: Back Surgery, Bladder Surgery, Breast Surgery, Cholecystectomy, Heart Catheterization With Stent, Hysterectomy, Orthopedic Surgery Additional Past Surgical History / Comment(s): bladder stimulator, neck surgery, total 6 cardiac stents - back fusion, neck fusion, jeff bunionectomy, revision of back surgery screws, cage and rods were suppose to be placed but DR Nova doesn't see them on imaging. Past Anesthesia/Blood Transfusion Reactions: No Reported Reaction Date of Last Stent Placement:: approx 3 yrs ago Past Psychological History: Anxiety, Bipolar, Depression, Panic Disorder Additional Psychological History / Comment(s): "stress related" Smoking Status: Former smoker Past Alcohol Use History: None Reported Additional Past Alcohol Use History / Comment(s): quit smoking 11/2022 Past Drug Use History: None Reported - Past Family History Father Family Medical History: Cancer Medications and Allergies Home Medications Medication Instructions Recorded Confirmed Type Metoprolol Succinate (ER) [Toprol 25 mg PO HS 07/10/21 12/16/22 History XL] Pregabalin [Lyrica] 150 mg PO TID 07/18/21 12/16/22 History Levothyroxine Sodium [Synthroid] 125 mcg PO DAILY 06/18/22 12/16/22 History QUEtiapine [SEROquel] 400 mg PO HS 30 Days tab 06/19/22 12/16/22 Rx Cyclobenzaprine [Flexeril] 10 mg PO HS 09/23/22 12/16/22 History Amitriptyline HCl [Elavil] 25 mg PO HS 10/30/22 12/16/22 History DULoxetine HCL [Cymbalta] 120 mg PO HS 10/30/22 12/16/22 History Oxybutynin Chloride [Oxybutynin 10 mg PO HS 10/30/22 12/16/22 History Chloride ER] Aspirin 81 mg PO DAILY #30 tab 11/01/22 12/16/22 Rx Atorvastatin [Lipitor] 80 mg PO DAILY #30 tab 12/09/22 12/16/22 Rx Clopidogrel [Plavix] 75 mg PO DAILY #30 tab 12/09/22 12/16/22 Rx Pantoprazole [Protonix] 40 mg PO DAILY #30 tab 12/09/22 12/16/22 Rx HYDROcodone/APAP 7.5-325MG [[place] 1 tab PO Q4HR PRN 12/16/22 12/16/22 History 7.5] Allergies Allergy/AdvReac Type Severity Reaction Status Date / Time ciprofloxacin [From Cipro] Allergy Anaphylaxis Verified 12/16/22 07:45 Penicillins Allergy Swelling/Hi Verified 12/16/22 07:45 ves vancomycin Allergy Dyspnea Verified 12/16/22 07:45 ketorolac tromethamine AdvReac Itching Verified 12/16/22 07:45 [From Toradol] NSAIDS (Non-Steroidal AdvReac STOMACH Verified 12/16/22 07:45 Anti-Inflamma ULCER Physical Exam Vitals: Vital Signs Temp Pulse Resp BP BP Pulse Ox 12/17/22 07:43 95 12/17/22 06:44 99.6 F 77 17 102/63 12/17/22 04:20 73 104/55 12/17/22 02:23 99.1 F 75 18 98/62 95 12/16/22 22:11 99.5 F 12/16/22 20:59 101.1 F H 80 109/60 12/16/22 19:24 103 F H 12/16/22 19:18 103.0 F H 83 17 108/65 94 L 12/16/22 19:00 100.6 F H 12/16/22 13:14 99.8 F H 80 16 104/54 97 12/16/22 10:24 102.3 F H Intake and Output 12/16/22 12/17/22 12/17/22 22:59 06:59 14:59 Other: # Voids 2 Results 12/15/22 23:02 12/15/22 23:02 Current Medications Generic Name Dose Route Start Last Admin Trade Name Freq PRN Reason Stop Dose Admin Acetaminophen 650 mg 12/16/22 09:01 12/16/22 19:25 Acetaminophen Tab 325 Mg Tab PO 650 mg Q6HR PRN Administration Mild Pain or Fever > 100.5 Alprazolam 0.25 mg 12/16/22 17:32 Alprazolam 0.25 Mg Tab PO TID PRN Anxiety Amitriptyline HCl 25 mg 12/16/22 21:00 12/16/22 21:03 Amitriptyline Hcl 25 Mg Tab PO 25 mg HS JOHNSON Administration Atorvastatin Calcium 80 mg 12/17/22 21:00 Atorvastatin 80 Mg Tab PO HS JOHNSON Cyclobenzaprine HCl 10 mg 12/16/22 21:00 12/16/22 21:03 Cyclobenzaprine 10 Mg Tab PO 10 mg HS JOHNSON Administration Duloxetine HCl 120 mg 12/16/22 21:00 12/16/22 21:03 Duloxetine Hcl 60 Mg Capsule.Dr PO 120 mg HS JOHNSON Administration Daptomycin 500 mg/ Sodium 50 mls @ 100 mls/hr 12/16/22 04:00 12/17/22 04:11 Chloride IVPB 100 mls/hr Q24H JOHNSON Administration Sodium Chloride 1,000 mls @ 125 mls/hr 12/16/22 03:45 12/17/22 04:11 Saline 0.9% IV 125 mls/hr .Q8H JOHNSON Administration Cefepime HCl 2 gm/ Sodium 100 mls @ 25 mls/hr 12/16/22 16:00 12/17/22 07:18 Chloride IVPB 25 mls/hr Q8HR JOHNSON Administration Protocol Levothyroxine Sodium 125 mcg 12/17/22 06:30 12/17/22 06:21 Levothyroxine 125 Mcg Tab PO 125 mcg DAILY@0630 JOHNSON Administration Metoprolol Succinate 25 mg 12/16/22 21:00 12/16/22 21:04 Metoprolol Succinate (Er) 25 Mg Tab.Er.24h PO 25 mg HS JOHNSON Administration Morphine Sulfate 4 mg 12/16/22 02:03 12/17/22 04:18 Morphine Sulfate 4 Mg/Ml Syringe IV 4 mg Q4HR PRN Administration Severe Pain (Scale 7 to 10) Naloxone HCl 0.2 mg 12/16/22 02:03 Naloxone 0.4 Mg/Ml 1 Ml Vial IV Q2M PRN Opioid Reversal Oxybutynin Chloride 10 mg 12/16/22 21:00 12/16/22 21:03 Oxybutynin 10 Mg Tab.Er.24 PO 10 mg HS JOHNSON Administration Pantoprazole Sodium 40 mg 12/17/22 07:30 Pantoprazole 40 Mg Tablet PO [id number]-[id number] JOHNSON Pregabalin 150 mg 12/16/22 22:00 12/16/22 22:08 Pregabalin 75 Mg Cap PO 150 mg TID JOHNSON Administration Quetiapine Fumarate 400 mg 12/16/22 21:00 12/16/22 21:03 Quetiapine 400 Mg Tab PO 400 mg HS JOHNSON Administration Intake and Output 12/16/22 12/17/22 12/17/22 22:59 06:59 14:59 Other: # Voids 2 12/15/22 23:02 12/15/22 23:02
--- NOTE | 2022-12-17 08:36 | P.PN ---
Subjective Progress Note Date: 12/17/22 Principal diagnosis: 1. AMS 2. Fever 3. Post-surgical incision drainage Patient seen and examined this morning. Patient is currently resting in bed. She reports that she has been ambulatory to the restroom independently without difficulty. Surgical incision is well approximated, dilia intact, no drainage noted. Patient states that her pain is managed on current regimen. Patient continues to deny any radicular symptoms or numbness and tingling to the bilateral lower extremities. Patient has been afebrile, denies nausea/vomiting, or chest pain. Objective - Vital Signs Vital signs: Vital Signs Temp 99.6 F 12/17/22 06:44 Pulse 77 12/17/22 06:44 Resp 17 12/17/22 06:44 BP 102/63 12/17/22 06:44 Pulse Ox 95 12/17/22 07:43 FiO2 Intake & Output 12/16/22 12/17/22 12/17/22 18:59 06:59 18:59 Other: # Voids 2 2 - Exam General: The patient is awake and alert, in no acute distress Skin: Skin is warm and dry with no obvious rashes or lesions. Surgical incision to the lumbar spine, dilia intact. Incision is approximated with scabbing present. No drainage noted. Periwound is slight redness and warm to touch. Eye: Pupils are equal, round and reactive to light, extra-ocular movements are intact; there is normal conjunctiva bilaterally. Neck: The neck is supple, there is no tenderness and ROM intact. Cardiovascular: There is a regular rate and rhythm. No murmur, rub or gallop is appreciated. Respiratory: Lungs are clear to auscultation, respirations are non-labored, breath sounds are equal. Gastrointestinal: Soft, non-distended, non-tender abdomen. Back: There is no tenderness to palpation in the midline, paralumbar, parathoracic or buttocks region. There is no obvious deformity. Musculoskeletal: ROM limited secondary to pain and stiffness from surgical procedure. Shoulder abduction 5/5, elbow flexors 5/5, wrist dorsiflexors 5/5. finger abductor 5/5, shot tube machine tender 5/5, hip flexor 5/5, knee flexor 5/5, ankle dorsiflexor 5/5, ankle plantarflexion 5/5 and extensor hallucis 5/5. Neurological: CN 2-12 intact. There are no obvious motor or sensory deficits. Movement and coordination equal and intact. Sensory exam to light touch intact C5-T1 and intact from L2-S1. Reflexes 2/4 in bilateral upper and lower extremities. Negative Hoffmans, babinski, and clonus signs. Psychiatric: Cooperative, appropriate mood & affect, normal judgment. - Labs CBC & Chem 7: 12/15/22 23:02 12/15/22 23:02 Labs: Abnormal Lab Results - Last 24 Hours (Table) 12/16/22 12/16/22 Range/Units 10:16 10:16 ESR 51 H (0-20) mm/hr C-Reactive Protein 17.4 H (<1.0) mg/dL Microbiology - Last 24 Hours (Table) 12/15/22 23:05 Blood Culture Gram Stain - Preliminary Blood 12/15/22 22:50 Blood Culture Gram Stain - Preliminary Blood Blood Culture - Preliminary Streptococcus species 12/15/22 23:05 Blood Culture - Final Blood 12/15/22 22:50 Blood Culture - Final Blood Assessment and Plan Assessment: 1. s/p Revision posteriolateral fusion L3-S1 with Removal of hardware L4-S1 2. Post surgical site infection Plan: We will continue to monitor incision, labs, and patient symptoms at this time. We may proceed with irrigation and debridement with decompression later this week if indicated. -Appreciate fitness consultant and team management. -Continue with IV antibiotic -Activity: Ambulate QID, OOB all meals, up and about, limit lifting bending twisting to less than 5 lbs. Use walker or cane if needed for stability. -Daily PT/OT, increase ambulation strength and balance. -Brace when up and about, not needed in bed or chair -Pain control: Adequate at this time -Meds: reviewed -GI ppx: senna, Miralax -DVT PPX: Heparin -Hygiene: Shower today. Maintain dressing clean and dry. Meticulous cleaning after BMs away from the incision site -Encourage IS 10x/hr -Dispo: pending I reviewed and discussed this case with my attending Dr. Nova, whom has reviewed this chart and films and is in agreement with assessment and plan of care as outlined above. I have personally seen and examined the patient, performed the documentation and the assessment and plan as written. Number of minutes spent on the visit: 15m.
[2022-12-17] MEDS: PANTOPRAZOLE 40 MG TABLET PO SCH (08:50)
[2022-12-17] MEDS: PREGABALIN 75 MG CAP PO SCH ×3 (08:50→21:22)
[2022-12-17] MEDS ORDERED: ATORVASTATIN 80 MG TAB PO SCH (09:00)
[2022-12-17] MEDS: ACETAMINOPHEN TAB 325 MG TAB PO PRN (09:20)
--- NOTE | 2022-12-17 11:41 | P.PN ---
Subjective Progress Note Date: 12/17/22 This is a 62-year-old female patient with a known history of coronary artery disease with previous stent placement, hyperlipidemia, hypertension, urinary incontinence, hypothyroidism, chronic tobacco dependence of nearly 50 years, chronic back pain. She had been admitted on 12/02/2022 for an elective L4-S1 decompression and fusion. During the procedure however she had developed hypotension, ventricular fibrillation and required fluid resuscitation and epinephrine and norepinephrine then the surgical site was urgently closed without completion and she was intubated on the mechanical ventilator and we had seen the patient in the intensive care unit. She did undergo cardiac catheterization that admission and was found to have no significant disease in the proximal RCA that had previously been stented. There was a branch of the RCA that was 60% to 70% narrowed. Major diagonal has 60-70% narrowing. LAD was patent. Left main and circumflex are free of significant disease. No further progression of her previous CAD. She subsequently recovered and was discharged home on 12/09/2022. She still had dilia intact. She did have some oozing of her surgical site that she states she was placing pads on and the drainage has stopped the last couple of days. She presented here to the emergency room last evening with a fever of 103 and altered mental status reported by her mom and brother. Chest x-ray revealed no acute cardiopulmonary process. A computed tomography scan can of the spine revealed multilevel laminectomy defects which is obscured by the metal artifact. Subcutaneous fluid consistent with recent postsurgical changes and seroma and hematoma. Abscess could not be excluded. White count 15.7. Hemoglobin 12.4. Sodium 135. Potassium 3.7. Bicarb 28. BUN 9. Creatinine 0.85. Glucose 123. C-reactive protein 17.4. AST 24. ALT 20. Urinalysis clean. She had been initiated on ceftriaxone and subsequently cefazolin. Infectious disease has been consulted. She is now on daptomycin and cefepime. She is seen today in consultation for possible return to the OR and preop clearance. She currently denies any shortness of breath, cough or congestion. She states she has not smoked since October 2022. She is not on home oxygen. She is currently maintaining O2 saturation in the 90s on room air. She remains febrile with a temperature of 102.3. No tachycardia. No tachypnea. 0.9% normal saline at 125 ML's per hour. The patient is seen today 12/17/2022 in follow-up on the regular medical floor. She is currently resting. The comfortably in bed. Awake and alert in no acute distress. She is maintaining O2 saturations in the 90s on room air. Current temperature 100.8. A pressure stable. Preliminary blood culture reveals Streptococcus species. Labs pending today. Antibiotics changed to cefazolin per ID services. 0.9% normal saline at 125 an hour. Objective - Vital Signs Vital signs: Vital Signs Temp 100.8 F H 12/17/22 10:39 Pulse 77 12/17/22 06:44 Resp 17 12/17/22 09:20 BP 102/63 12/17/22 06:44 Pulse Ox 95 12/17/22 07:43 FiO2 Intake & Output 12/16/22 12/17/22 12/17/22 18:59 06:59 18:59 Other: Voiding Method Bedside Commode # Voids 2 2 - Exam GENERAL EXAM: Alert, 62-year-old female, on room air, comfortable in no apparent distress. HEAD: Normocephalic. EYES: Normal reaction of pupils, equal size. NOSE: Clear with pink turbinates. THROAT: No erythema or exudates. NECK: No masses, no JVD. CHEST: No chest wall deformity. LUNGS: Equal air entry with no crackles, wheeze, rhonchi or dullness. CVS: S1 and S2 normal with no audible murmur, regular rhythm. ABDOMEN: No hepatosplenomegaly, normal bowel sounds, no guarding or rigidity. SPINE: The patient has a long incision on her back with multiple, multiple dilia with some clear drainage oozing in areas. SKIN: No rashes CENTRAL NERVOUS SYSTEM: No focal deficits, tone is normal in all 4 extremities. EXTREMITIES: There is no peripheral edema. No clubbing, no cyanosis. Peripheral pulses are intact. - Labs CBC & Chem 7: 12/15/22 23:02 12/15/22 23:02 Labs: Abnormal Lab Results - Last 24 Hours (Table) 12/16/22 12/16/22 Range/Units 10:16 10:16 ESR 51 H (0-20) mm/hr C-Reactive Protein 17.4 H (<1.0) mg/dL Microbiology - Last 24 Hours (Table) 12/15/22 23:05 Blood Culture Gram Stain - Preliminary Blood 12/15/22 22:50 Blood Culture Gram Stain - Preliminary Blood Blood Culture - Preliminary Streptococcus species 12/15/22 23:05 Blood Culture - Final Blood 12/15/22 22:50 Blood Culture - Final Blood Assessment and Plan Assessment: Altered mental status secondary to fever secondary to suspected abscess of the spine. Computed tomography scan reveals multilevel laminectomy defect which is obscured by the metal artifact. Subcutaneous fluid consistent with recent postsurgical changes and seroma and hematoma. Abscess not excluded. Currently on cefazolin. Preliminary blood culture positive for Streptococcus species. Recent, 12/02/2022, surgery for lumbar decompression and fusion L4 to S1 where she had developed hypotension and ventricular fibrillation arrest which was quickly aborted. She initially was intubated and on mechanical ventilator in the ICU and she subsequently required covered and was discharged on 12/09/2022. Completion of surgery was planned for a later date. Cardiac catheterization at that time revealed no significant progression of her coronary artery disease Coronary artery disease with previous stents Chronic tobacco dependence of greater than 40 years. Quit in October 2022 Hypertension Hyperlipidemia Obesity Hypothyroidism History of anxiety/depression History of bipolar disorder/panic disorder Plan: The patient was seen and evaluated Medications reviewed Stable and on room air Cleared for surgery from the pulmonary standpoint Educated regarding incentive spirometer Antibiotics per infectious disease We will continue to follow I have personally seen and examined the patient, performed the documentation and the assessment and plan as written. Number of minutes spent on the visit: 10.
[2022-12-17 12:31] LABS: Magnesium 1.8 mg/dL (1.5-2.4)
[2022-12-17 12:35] LABS: African American GFR (CKD) 90.3 (60.0-200.0); Albumin 3.3 g/dL (3.8-4.9); Albumin/Globulin Ratio 1.38 (1.60-3.17); Anion Gap 13.5 mmol/L (10.00-18.00); BUN/Creat Ratio 10.25 Ratio (12.00-20.00); Blood Urea Nitrogen 8.2 mg/dL (9.0-27.0); Calcium 8.2 mg/dL (8.7-10.3); Carbon Dioxide 22.5 mmol/L (20.0-27.5); Globulin 2.4 g/dL (1.6-3.3); Non-African American GFR(CKD) 77.9 (60.0-200.0); Potassium 3.8 mmol/L (3.5-5.5); Total Bilirubin 0.6 mg/dL (0.30-1.20); Total Protein 5.7 g/dL (6.2-8.2)
--- NOTE | 2022-12-17 12:43 | P.PN ---
Subjective Progress Note Date: 12/17/22 Principal diagnosis: Bacteremia and lumbar surgical site infection Patient is a 62-year-old female with multiple comorbidities including coronary artery disease hypertension hyperlipidemia ND history of chronic back pain in this patient who did have a history of multiple back surgeries patient was recently taken to the OR on November 24, 2022 for revision L3 to pelvis decompression and fusion the procedure was aborted due to V-fib event resulting in the crash closure, now presented to hospital with fever and mental status changes increasing pain and some drainage from the lumbar surgical site. On today's evaluation, that is 12/17/2022, the patient overall fever pattern has improved with a temperature of 100.8 this morning, the patient denies having any chest pain or shortness breath or cough sputum, still complaining of pain to the lower back area no nausea no vomiting and no diarrhea Objective - Vital Signs Vital signs: Vital Signs Temp 100.8 F H 12/17/22 10:39 Pulse 77 12/17/22 06:44 Resp 17 12/17/22 09:20 BP 102/63 12/17/22 06:44 Pulse Ox 95 12/17/22 07:43 FiO2 Intake & Output 12/16/22 12/17/22 12/17/22 18:59 06:59 18:59 Other: Voiding Method Bedside Commode # Voids 2 2 - Exam GENERAL DESCRIPTION: Middle-age female lying in bed in no distress RESPIRATORY SYSTEM: Unlabored breathing , decreased breath sounds at bases HEART: S1 S2 regular rate and rhythm , ABDOMEN: Soft , no tenderness EXTREMITIES: No edema feet - Labs CBC & Chem 7: 12/15/22 23:02 12/17/22 05:25 Labs: Abnormal Lab Results - Last 24 Hours (Table) 12/16/22 12/16/22 Range/Units 10:16 10:16 ESR 51 H (0-20) mm/hr C-Reactive Protein 17.4 H (<1.0) mg/dL Microbiology - Last 24 Hours (Table) 12/15/22 23:05 Blood Culture Gram Stain - Preliminary Blood 12/15/22 22:50 Blood Culture Gram Stain - Preliminary Blood Blood Culture - Preliminary Streptococcus species 12/15/22 23:05 Blood Culture - Final Blood 12/15/22 22:50 Blood Culture - Final Blood Assessment and Plan (1) Bacteremia Current Visit: Yes Status: Acute Code(s): R78.81 - BACTEREMIA SNOMED Code(s): 6297611 (2) Post op infection Current Visit: Yes Status: Acute Code(s): T81.40XA - INFECTION FOLLOWING A PROCEDURE, UNSPECIFIED, INIT SNOMED Code(s): 33520538 Plan: 1patient presented to hospital with sepsis in this patient with a recent lumbar spine surgery which was aborted because of V-fib and a crash closure with in creasing pain to the lumbar spine along with drainage and did have abnormal CT concerning for possible abscess and now with blood culture positive for alphahemolytic streptococcus 2patient with multiple antibiotic allergies that would limit the number of antibiotics safe to use. 3patient will benefit from I&D and drainage of this fluid seen on the CT of the thoracolumbar spine which should be sent for culture 4we will discontinue cefepime and daptomycin start the patient cefazolin 2 g every 8 hours and monitor clinical course closely Time with Patient: Less than 30
--- NOTE | 2022-12-17 14:38 | P.PN ---
Subjective Progress Note Date: 12/17/22 Hospital Course: Patient is a very pleasant 62-year-old female with a past medical history CAD status post stenting 6, recent cardiac arrest on 12/02/22, hypertension, hyperlipidemia, and recent lumbar fusion on 12/02/22 which was was only partially completed and aborted secondary to development of intraoperative ventricular arrhythmia. Patient presented to the emergency department overnight secondary to reports of lower back pain and fever progressively worsening over the past 2 days. She underwent full evaluation in the emergency department. CT thoracic and lumbar spine revealing subcutaneous fluid consistent with recent postsurgical changes with seroma/hematoma, abscess not excluded at this time. Labs completed and reviewed showing leukocytosis with WBC count of 15.7 elevated , ESR of 51, an elevated CRP of 17.4. Urinalysis was negative for infection. EKG was completed showing normal sinus rhythm at 86 bpm with T-wave inversion/abnormality in leads III and V6 which appears to be a new finding when compared to EKG completed 12/03/22 showing normal sinus rhythm at 83 bpm with no noted T-wave or ST abnormalities showing no signs of acute ischemia upon personal review and interpretation. Blood cultures obtained and sent to lab for analysis. Patient febrile upon arrival temp 103.3F. Patient was started on IV antibiotics. ID, orthopedics, pulmonology, and cardiology following. Subjective: Patient seen and examined at bedside. She still continues to have fevers. She denies any chest pain, shortness of breath, abdominal pain, nausea, vomiting, diarrhea, constipation, or urinary complaints. She continues to have pain in her back. Pertinent positives and negatives as discussed above, a complete review of systems was performed and all other systems are negative. Vitals Signs Reviewed. General: nontoxic, no distress, appears at stated age Derm: warm, dry, lumbar incision not visualized Head: atraumatic, normocephalic, symmetric Eyes: EOMI, no lid lag, anicteric sclera Mouth: no lip lesion, mucus membranes moist Cardiovascular: S1S2 reg, no murmur Lungs: CTA bilateral, no rhonchi, no rales , no accessory muscle use Abdominal: soft, nontender to palpation, no guarding, no appreciable organomegaly Ext: no gross muscle atrophy, no edema, no contractures Neuro: CN II-XI grossly intact, no focal neuro deficits Psych: Alert, oriented, appropriate affect Data reviewed today: Lab data: Sodium 138, potassium 3.8, creatinine 0.8, magnesium 1.8, CRP 17.4, ESR 51 Assessment and Plan: Patient is currently critically ill requiring IV antibiotics, close monitoring for sepsis and bacteremia. Will likely need surgical intervention later this week. Active: Sepsis possibly secondary to postsurgical abscess Alphahemolytic streptococcus bacteremia Postsurgical seroma/hematoma Leukocytosis Status post recent lumbar fusion on 12/02/22 CAD status post stenting 6 and recent intraoperative ventricular arrhythmia on 12/02/22 -ID note reviewed: patient started on cefazolin 2 g every 8 hours -Repeat cultures ordered -Cardiology note reviewed: Patient can proceed with the surgery, continue current dose of beta danish, restarted Lipitor -Pulmonology note reviewed: Patient may proceed with surgery -Orthopedics note reviewed: Likely surgical intervention later this week -CBC, and BMP, magnesium level ordered for tomorrow -Currently holding aspirin and Plavix due to plan for surgery -Continue telemetry Chronic: Hypertension Hyperlipidemia DVT ppx: SCDs Code status: Full code Anticipated discharge place: Pending clinical course Anticipated discharge time: Pending clinical course Objective - Vital Signs Vital signs: Vital Signs Temp 100.8 F H 12/17/22 10:39 Pulse 77 12/17/22 06:44 Resp 17 12/17/22 09:20 BP 102/63 12/17/22 06:44 Pulse Ox 95 12/17/22 07:43 FiO2 Intake & Output 12/16/22 12/17/22 12/17/22 18:59 06:59 18:59 Other: Voiding Method Bedside Commode # Voids 2 2 - Labs CBC & Chem 7: 12/15/22 23:02 12/17/22 05:25 Labs: Abnormal Lab Results - Last 24 Hours (Table) 12/17/22 Range/Units 05:25 BUN 8.2 L (9.0-27.0) mg/dL BUN/Creatinine Ratio 10.25 L (12.00-20.00) Ratio Calcium 8.2 L (8.7-10.3) mg/dL AST 37 H (13-35) U/L Total Protein 5.7 L (6.2-8.2) g/dL Albumin 3.3 L (3.8-4.9) g/dL Albumin/Globulin Ratio 1.38 L (1.60-3.17) g/dL Microbiology - Last 24 Hours (Table) 12/15/22 22:50 Blood Culture Gram Stain - Preliminary Blood Blood Culture - Preliminary Alpha Hemolytic Streptococcus 12/15/22 23:05 Blood Culture Gram Stain - Preliminary Blood 12/15/22 23:05 Blood Culture - Final Blood 12/15/22 22:50 Blood Culture - Final Blood
[2022-12-17 18:47] LABS: Basophils # (A) 0.1 k/uL (0-0.2); Basophils % (A) 0 %; Eosinophils # (A) 0.3 k/uL (0-0.7); Eosinophils % (A) 2 %; HCT 34.8 % (34.0-46.0); HGB 11.4 gm/dL (11.4-16.0); Lymphocytes % (A) 7 %; MCHC 32.8 g/dL (31.0-37.0); MCV 100.4 fL (80.0-100.0); Mean Platelet Volume 8.7; Monocytes # (A) 0.9 k/uL (0-1.0); Monocytes % (A) 6 %; Neutrophils # (A) 11.3 k/uL (1.3-7.7); Neutrophils % (A) 83 %; Platelet Count 205 k/uL (150-450); RBC 3.47 m/uL (3.80-5.40); RDW 13.3 % (11.5-15.5); WBC 13.6 k/uL (3.8-10.6)
[2022-12-17] MEDS: CYCLOBENZAPRINE 10 MG TAB PO SCH (21:22)
[2022-12-17] MEDS: DULoxetine HCL 60 MG CAPSULE.DR PO SCH (21:22)
[2022-12-17] MEDS: METOPROLOL SUCCINATE (ER) 25 MG TAB.ER.24H PO SCH (21:22)
[2022-12-17] MEDS: OXYBUTYNIN 10 MG TAB.ER.24 PO SCH (21:22)
[2022-12-17] MEDS: AMITRIPTYLINE HCL 25 MG TAB PO SCH (21:22)
[2022-12-17] MEDS: QUEtiapine 400 MG TAB PO SCH (21:23)
[2022-12-17] MEDS: ATORVASTATIN 80 MG TAB PO SCH (21:23)
[2022-12-18] MEDS: SODIUM CHLORIDE 0.9% 1,000 ML IV SCH ×4 (02:57→21:38)
[2022-12-18] MEDS: ACETAMINOPHEN TAB 325 MG TAB PO PRN (02:59)
[2022-12-18] MEDS: MORPHINE SULFATE 4 MG/ML SYRINGE IV PRN ×2 (04:51→08:59)
[2022-12-18] MEDS: LEVOTHYROXINE 125 MCG TAB PO SCH (06:33)
[2022-12-18] MEDS: PANTOPRAZOLE 40 MG TABLET PO SCH (06:33)
[2022-12-18 07:54] LABS: Basophils % (A) 0 %; Eosinophils # (A) 0.1 k/uL (0-0.7); Eosinophils % (A) 1 %; HCT 28.8 % (34.0-46.0); Hypochromasia Slight; Lymphocytes # (A) 0.8 k/uL (1.0-4.8); Lymphocytes % (A) 7 %; MCH 33.7 pg (25.0-35.0); MCHC 33.6 g/dL (31.0-37.0); MCV 100.5 fL (80.0-100.0); Mean Platelet Volume 8.2; Monocytes # (A) 0.6 k/uL (0-1.0); Monocytes % (A) 5 %; Neutrophils # (A) 9.6 k/uL (1.3-7.7); Neutrophils % (A) 85 %; Platelet Count 321 k/uL (150-450); RBC 2.87 m/uL (3.80-5.40); RDW 13.4 % (11.5-15.5); WBC 11.3 k/uL (3.8-10.6)
[2022-12-18 08:01] LABS: HGB 9.7 gm/dL (11.4-16.0)
[2022-12-18 08:03] LABS: INR 1.1 (<1.2); Partial Thromboplastin Time 28.6 sec (22.0-30.0); Prothrombin Time 11.5 sec (9.0-12.0)
--- NOTE | 2022-12-18 08:19 | P.PN ---
Progress Note - Text Progress Note Date: 12/18/22 Spine Surgery Clinical and Risk Review Adeline Christiansen is a 62-year-old female presenting for evaluation of wound drainage with pain fever chills. It was my pleasure to have seen and examined Adeline. In our visit today we have had a chance to go over subjective complaints, physical examination findings and treatments including the natural course history without intervention and various interventional options. The patients imaging demonstrates seroma likely on computed tomography scan status post lumbar surgery. On physical exam, Adeline demonstrates erythematous draining lumbar wound. I have explained to the patient that as their condition progresses it will cause further neurological deficits and eventual paralysis. Based on the patients imaging, physical exam, and the rapid progression and disabling nature of their symptoms, at this time I recommend surgery in the form or a: Incision and drainage with irrigation and debridement lumbar spine. I discussed the risk and benefits of this procedure at length with Adeline. The patient agreed to considered pursuing the procedure abovementioned. Prior to surgery, she should follow up with her PCP (Cardio, ID, IM etc) for clearance. Questions were invited and answered, and the patient wishes to proceed as outlined below. Currently, I am recommendin. Incision and drainage with irrigation and debridement lumbar spine 2. Follow up with PCP for surgical clearance 3. Review of surgical risks and benefits as well as an educational packet on the proposed surgical procedure. Risks: All surgical procedures come with inherent risks, including those related to positioning, anesthesia, intraoperative findings, and postoperative complications. It is important to understand that surgery does not come with any guarantee of a successful outcome as complications and adverse events are always possible. The patient was given a handout in office today discussing the surgical procedure and risks associated with the intervention, both of which were discussed with the patient. These risks include but are not limited to the following: * Experiencing same, different or even worse symptoms in back, neck, arms, or legs compared to before surgery. * Requiring further surgery or other forms of treatment presently or at some time in the future at same or other levels of the intended spine surgery. * On an extreme but fortunately relatively rare basis severe complication such as blindness, stroke, heart attack, temporary and/or permanent nerve injury, paralysis, coma, or may occur, sometimes without known explanation. * Surgical complications may include but are not limited to risk of infection, fluid accumulation in the surgical dissection site, including a seroma or hematoma, that requires additional surgery, wound drainage, bleeding, new numbness or weakness, vision changes/loss, spinal fluid leakage, non-healing and/or infected incision, headaches, difficulty or inability to swallow, hoarseness, hemopneumothorax, pneumothorax, impotence, retrograde ej aculation, vaginal dryness; injury to nerves, spinal cord, blood vessels, lymphatics or other vital organs (i.e., bowel injury, injury to the great vessels); heterotopic bone formation; complications related to the hardware such as screws, rods, cages including misplaced hardware, device failure, instrumentation at the wrong spine level, hardware fracture/breakage, or hardware loosening; vertebral failure of the spinal column above or below the newly placed hardware; retained surgical instrumentations or devices and the need for further surgery. * Medical risks of the planned spine surgery include but are not limited to generalized Infections to the whole body or local areas outside of the surgical site (sepsis), heart attack, bleeding, anaphylaxis, meningitis, seizure, epilepsy, hearing loss, burn arevalo, laceration of the head or other areas of the body, bruising, hypersensitivity of the skin, bladder over distension; allergic reaction; shoulder injury related to positioning; fat, blood and air clots to other areas of the body like heart, lungs, brain; failure of internal organs such as lungs, kidneys, liver and excessive bleeding. If blood transfusions are necessary, note that transfusions may cause intolerance reactions such as anaphylaxis or other complex reactions. * Despite best efforts, the results of spine surgery might not heal in terms of bone, soft tissues such as skin, fascia, ligaments, and joints. Additionally, in order to achieve best possible results, spine surgery may be carried out beyond the initially planned levels and involve decompression, fusion including insertion of hardware at levels other than the original intended area of surgical interest change some portions of the procedure in order to ensure the best possible outcomes. * With spine surgery and spinal fusion, there are different off label uses of instrumentation (devices, implants and hardware) as well as biological substances (bone morphogenic proteins, demineralized bone matrix) as well as using extra bone from allograft sources (i.e. cadaver bone) or autograft (iliac crest bone, ribs, or the spine itself). The patient has been given information about these practices and their inherent risks and benefits. The patient has had a chance to review all the listed information, has been given print outs detailing this information, and has had all his/her questions answered to their satisfaction. It was my pleasure to have seen and examined Adeline. In our visit today we have had a chance to go over my understanding of our patient's current condition, the natural course history without intervention and various interventional options. Questions were invited and answered, and the patient wishes to proceed as outlined above. I have seen and examined the patient for 25 minutes and we have spent more than 50% of the time in repeat and detailed counseling about the patient's condition, its natural course history with out and as much as can be predicted with surgery and re-review of various surgical treatment options. In conclusion, Adeline Tuckerico and requested we proceed with the above suggested surgery and are willing to accept risks and limitations of the suggested surgery as nature of the disease process and our best attempts at treatment for the condition. She understands that she is extremely high risk for the surgery given her history and the fact that she had a cardiac arrest like event happen during her previous surgery. She understands that she could be on the ventilator after surgery and that her family would have to make a decision about this. She is willing to assume all of the risks of surgery and she would like to proceed. Thank you again for allowing us to be part of your patient's care. Please don't hesitate to contact me if you have any further questions. Signed and authenticated by: Nima Cheng [facility] [id number], [address] [address]
[2022-12-18 08:22] LABS: ALT 20 U/L (4-34); AST 52 U/L (14-36); African American GFR (CKD) >90 (>60 ml/min/1.73 sqM); Albumin 2.6 g/dL (3.5-5.0); Albumin/Globulin Ratio 1.1; Alkaline Phosphatase 96 U/L (38-126); Anion Gap 5 mmol/L; Blood Urea Nitrogen 8 mg/dL (7-17); Calcium 7.4 mg/dL (8.4-10.2); Carbon Dioxide 25 mmol/L (22-30); Chloride 107 mmol/L (98-107); Globulin 2.4 g/dL; Glucose 125 mg/dL (74-99); Magnesium 1.9 mg/dL (1.6-2.3); Non-African American GFR(CKD) >90 (>60 ml/min/1.73 sqM); Potassium 3.2 mmol/L (3.5-5.1); Sodium 137 mmol/L (137-145); Total Bilirubin 0.9 mg/dL (0.2-1.3)
[2022-12-18] MEDS ORDERED: MAGNESIUM SULFATE-D5W PMX 1 GM in DEXTROSE/WATER 1 100ML.BAG IVPB ONE (08:51)
[2022-12-18] MEDS: PREGABALIN 75 MG CAP PO SCH ×3 (08:59→23:10)
[2022-12-18] MEDS: POTASSIUM CHLORIDE 20 MEQ in WATER FOR INJECTION 1 100ML.BAG IVPB SCH ×5 (09:24→20:21)
[2022-12-18 09:31] LABS: Basophils # (A) 0.02 X 10*3/uL (0.00-0.10); Basophils % (A) 0.2 %; Eosinophils # (A) 0.12 X 10*3/uL (0.04-0.35); Eosinophils % (A) 0.9 %; HCT 29.1 % (37.2-46.3); HGB 9.5 g/dL (12.0-15.0); Immature Grans, Automated 0.5 %; Lymphocytes # (A) 1.02 X 10*3/uL (0.90-5.00); Lymphocytes % (A) 8.1 %; MCH 32.9 pg (27.0-32.0); MCHC 32.6 g/dL (32.0-37.0); MCV 100.7 fL (80.0-97.0); Mean Platelet Volume 10.4 fL (9.5-12.2); Monocytes # (A) 0.98 X 10*3/uL (0.20-1.00); Monocytes % (A) 7.7 %; NRBC Per 100 WBC 0 /100 WBCS (0.0-0.0); Neutrophils # (A) 10.45 X 10*3/uL (1.80-7.70); Neutrophils % (A) 82.6 %; Platelet Count 258 X 10*3/uL (140-440); RBC 2.89 X 10*6/uL (4.10-5.20); RDW 14.4 % (11.5-14.5); WBC 12.65 X 10*3/uL (4.50-10.00)
[2022-12-18 10:10] LABS: Anion Gap 14.7 mmol/L (10.00-18.00); BUN/Creat Ratio 10.7 Ratio (12.00-20.00); Blood Urea Nitrogen 8.4 mg/dL (9.0-27.0); Calcium 7.7 mg/dL (8.7-10.3); Carbon Dioxide 20.9 mmol/L (20.0-27.5); Magnesium 1.8 mg/dL (1.5-2.4); Non-African American GFR(CKD) 79.4 (60.0-200.0); Potassium 3.2 mmol/L (3.5-5.5)
--- NOTE | 2022-12-18 11:08 | P.PN ---
Subjective Progress Note Date: 12/18/22 This is a 62-year-old female patient with a known history of coronary artery disease with previous stent placement, hyperlipidemia, hypertension, urinary incontinence, hypothyroidism, chronic tobacco dependence of nearly 50 years, chronic back pain. She had been admitted on 12/02/2022 for an elective L4-S1 decompression and fusion. During the procedure however she had developed hypotension, ventricular fibrillation and required fluid resuscitation and epinephrine and norepinephrine then the surgical site was urgently closed without completion and she was intubated on the mechanical ventilator and we had seen the patient in the intensive care unit. She did undergo cardiac catheterization that admission and was found to have no significant disease in the proximal RCA that had previously been stented. There was a branch of the RCA that was 60% to 70% narrowed. Major diagonal has 60-70% narrowing. LAD was patent. Left main and circumflex are free of significant disease. No further progression of her previous CAD. She subsequently recovered and was discharged home on 12/09/2022. She still had dilia intact. She did have some oozing of her surgical site that she states she was placing pads on and the drainage has stopped the last couple of days. She presented here to the emergency room last evening with a fever of 103 and altered mental status reported by her mom and brother. Chest x-ray revealed no acute cardiopulmonary process. A computed tomography scan can of the spine revealed multilevel laminectomy defects which is obscured by the metal artifact. Subcutaneous fluid consistent with recent postsurgical changes and seroma and hematoma. Abscess could not be excluded. White count 15.7. Hemoglobin 12.4. Sodium 135. Potassium 3.7. Bicarb 28. BUN 9. Creatinine 0.85. Glucose 123. C-reactive protein 17.4. AST 24. ALT 20. Urinalysis clean. She had been initiated on ceftriaxone and subsequently cefazolin. Infectious disease has been consulted. She is now on daptomycin and cefepime. She is seen today in consultation for possible return to the OR and preop clearance. She currently denies any shortness of breath, cough or congestion. She states she has not smoked since October 2022. She is not on home oxygen. She is currently maintaining O2 saturation in the 90s on room air. She remains febrile with a temperature of 102.3. No tachycardia. No tachypnea. 0.9% normal saline at 125 ML's per hour. The patient is seen today 12/17/2022 in follow-up on the regular medical floor. She is currently resting. The comfortably in bed. Awake and alert in no acute distress. She is maintaining O2 saturations in the 90s on room air. Current temperature 100.8. A pressure stable. Preliminary blood culture reveals Streptococcus species. Labs pending today. Antibiotics changed to cefazolin per ID services. 0.9% normal saline at 125 an hour. The patient is seen today 12/18/2022 in follow-up on the regular medical floor. Awake and alert in no acute distress. Resting comfortably in bed. Denies any worsening shortness of breath, cough or congestion. Maintaining good O2 saturations in the 90s on room air. Plan is for incision and drainage with irrigation and debridement of the lumbar spine today. Blood cultures positive for alpha hemolytic streptococcus. Wound cultures are pending. White count 11.3. Hemoglobin 9.7. Sodium 137. Potassium 3.2. Bicarb 25. BUN 8. Creatinine 0.66. Glucose 125. She is continued on cefazolin. Normal saline at 125 ML's per hour. Objective - Vital Signs Vital signs: Vital Signs Temp 97.1 F L 12/18/22 10:49 Pulse 63 12/18/22 10:49 Resp 15 12/18/22 10:49 BP 79/37 12/18/22 10:49 Pulse Ox 94 L 12/18/22 10:49 FiO2 Intake & Output 12/17/22 12/18/22 12/18/22 18:59 06:59 18:59 Other: Voiding Method Bedside Commode Bedside Commode # Voids 3 3 1 - Exam GENERAL EXAM: Alert, 62-year-old female, on room air, resting in bed, comfortable in no apparent distress. HEAD: Normocephalic. EYES: Normal reaction of pupils, equal size. NOSE: Clear with pink turbinates. THROAT: No erythema or exudates. NECK: No masses, no JVD. CHEST: No chest wall deformity. LUNGS: Equal air entry with no crackles, wheeze, rhonchi or dullness. CVS: S1 and S2 normal with no audible murmur, regular rhythm. ABDOMEN: No hepatosplenomegaly, normal bowel sounds, no guarding or rigidity. SPINE: The patient has a long incision on her back with multiple dilia with some clear drainage oozing in areas. SKIN: No rashes CENTRAL NERVOUS SYSTEM: No focal deficits, tone is normal in all 4 extremities. EXTREMITIES: There is no peripheral edema. No clubbing, no cyanosis. Peripheral pulses are intact. - Labs CBC & Chem 7: 12/18/22 07:32 12/18/22 07:32 Labs: Abnormal Lab Results - Last 24 Hours (Table) 12/17/22 12/17/22 12/18/22 Range/Units 05:25 18:37 04:29 WBC 13.6 H 12.65 H (3.8-10.6) k/uL RBC 3.47 L 2.89 L (3.80-5.40) m/uL Hgb 9.5 L (12.0-15.0) g/dL Hct 29.1 L (37.2-46.3) % MCV 100.4 H 100.7 H (80.0-100.0) fL MCH 32.9 H (27.0-32.0) pg Immature Gran # 0.06 H (0.00-0.04) X 10*3/uL Neutrophils # 11.3 H 10.45 H (1.3-7.7) k/uL Lymphocytes # (1.0-4.8) k/uL Potassium (3.5-5.5) mmol/L BUN 8.2 L (9.0-27.0) mg/dL BUN/Creatinine Ratio 10.25 L (12.00-20.00) Ratio Glucose (70-110) mg/dL Calcium 8.2 L (8.7-10.3) mg/dL AST 37 H (13-35) U/L Total Protein 5.7 L (6.2-8.2) g/dL Albumin 3.3 L (3.8-4.9) g/dL Albumin/Globulin Ratio 1.38 L (1.60-3.17) g/dL 12/18/22 12/18/22 12/18/22 Range/Units 04:29 07:32 07:32 WBC 11.3 H (3.8-10.6) k/uL RBC 2.87 L (3.80-5.40) m/uL Hgb 9.7 L D (12.0-15.0) g/dL Hct 28.8 L (37.2-46.3) % MCV 100.5 H (80.0-100.0) fL MCH (27.0-32.0) pg Immature Gran # (0.00-0.04) X 10*3/uL Neutrophils # 9.6 H (1.3-7.7) k/uL Lymphocytes # 0.8 L (1.0-4.8) k/uL Potassium 3.2 L 3.2 L (3.5-5.5) mmol/L BUN 8.4 L (9.0-27.0) mg/dL BUN/Creatinine Ratio 10.70 L (12.00-20.00) Ratio Glucose 117 H 125 H (70-110) mg/dL Calcium 7.7 L 7.4 L (8.7-10.3) mg/dL AST 52 H (13-35) U/L Total Protein 5.0 L (6.2-8.2) g/dL Albumin 2.6 L (3.8-4.9) g/dL Albumin/Globulin Ratio (1.60-3.17) g/dL Microbiology - Last 24 Hours (Table) 12/18/22 04:08 Anaerobic Culture - Preliminary Back 12/18/22 04:08 Wound Culture - Preliminary Back 12/15/22 22:50 Blood Culture Gram Stain - Preliminary Blood Blood Culture - Preliminary Alpha Hemolytic Streptococcus Assessment and Plan Assessment: Altered mental status secondary to fever secondary to suspected abscess of the spine. Computed tomography scan reveals multilevel laminectomy defect which is obscured by the metal artifact. Subcutaneous fluid consistent with recent postsurgical changes and seroma and hematoma. Abscess not excluded. Currently on cefazolin. Blood culture positive for alpha hemolytic streptococcus. Wound cultures pending. Plan is for incision and drainage with irrigation and debridement of the lumbar spine today 12/18/2022. Recent, 12/02/2022, surgery for lumbar decompression and fusion L4 to S1 where she had developed hypotension and ventricular fibrillation arrest which was quickly aborted. She initially was intubated and on mechanical ventilator in the ICU and she subsequently required covered and was discharged on 12/09/2022. Completion of surgery was planned for a later date. Cardiac catheterization at that time revealed no significant progression of her coronary artery disease Coronary artery disease with previous stents Chronic tobacco dependence of greater than 40 years. Quit in October 2022 Hypertension Hyperlipidemia Obesity Hypothyroidism History of anxiety/depression History of bipolar disorder/panic disorder Plan: The patient was seen and evaluated Medications reviewed Stable and on room air Educated regarding incentive spirometer Antibiotics per infectious disease Plan is for incision and drainage with irrigation and debridement of the lumbar spine today We will continue to follow I have personally seen and examined the patient, performed the documentation and the assessment and plan as written. Number of minutes spent on the visit: 10.
[2022-12-18] MEDS ORDERED: LACTATED RINGERS 1,000 ML IV ONE (11:10)
[2022-12-18] MEDS ORDERED: HYDROCORTISONE SUCCINATE 100 MG/2 ML VIAL IVP ONE (11:18)
[2022-12-18] MEDS ORDERED: fentaNYL (PF) 50 MCG/ML 2 ML AMP ONE (11:50)
[2022-12-18] MEDS ORDERED: POTASSIUM CHLORIDE 20 MEQ/100 ML BAG IVPB ONE (11:50)
[2022-12-18] MEDS ORDERED: NEOSTIGMINE 1 MG/ML 10 ML VIAL ONE (11:50)
[2022-12-18] MEDS ORDERED: SUCCINYLCHOLINE CHLORIDE 200 MG/10 ML VIAL IV ONE (11:50)
[2022-12-18] MEDS ORDERED: PHENYLEPHRINE-0.9% NACL SYG 1,000 MCG/10 ML SYRINGE ONE (11:50)
[2022-12-18] MEDS ORDERED: LIDOCAINE 2% INJ 20 MG/ML (2 ML VIAL) ONE (11:50)
[2022-12-18] MEDS ORDERED: NOREPINEPHRINE 1 MG/ML 4 ML VIAL IV ONE (11:50)
[2022-12-18] MEDS ORDERED: GLYCOPYRROLATE 0.2 MG/ML 2 ML VIAL ONE (11:50)
[2022-12-18] MEDS ORDERED: ETOMIDATE 2 MG/ML 10 ML VIAL ONE (11:50)
[2022-12-18] MEDS ORDERED: ROCURONIUM 10 MG/ML (5 ML VIAL) IV ONE (11:50)
[2022-12-18] MEDS ORDERED: MIDAZOLAM 2 MG/2 ML VIAL ONE (11:50)
--- NOTE | 2022-12-18 11:59 | XR ---
EXAMINATION TYPE: XR chest 1V confirm line [facility] DATE OF EXAM: 12/18/2022 11:53 AM COMPARISON: Chest radiographs from 12/16/2022 TECHNIQUE: XR chest 1V confirm line [facility] Portable AP radiograph of the chest. CLINICAL INDICATION:Female, 62 years old with history of CENTRAL LINE PLACEMENT; FINDINGS: Lungs/Pleura: There is no evidence of pleural effusion, focal consolidation, or pneumothorax. Pulmonary vascularity: Unremarkable. Heart/mediastinum: Cardiomediastinal silhouette is unremarkable. Musculoskeletal: No acute osseous pathology. There is fixation hardware in the lower cervical spine. Other findings: None Lines/Tubes: Right internal jugular central venous catheter with distal tip at the cavoatrial junction. IMPRESSION: 1. No acute cardiopulmonary disease/process. 2. Right internal jugular central venous catheter with distal tip at the cavoatrial junction.
[2022-12-18] MEDS ORDERED: NOREPINEPHRINE 4 MG in SODIUM CHLORIDE 0.9% 250 ML IV SCH ×2 (12:00→16:30)
[2022-12-18] MEDS ORDERED: GELATIN SPONGE,ABSORB (LARGE) 1 EACH SPONGE TOPICAL ONE (12:46)
[2022-12-18] MEDS ORDERED: THROMBIN (BOVINE) 5,000 UNIT VIAL TOPICAL ONE (12:47)
[2022-12-18] MEDS ORDERED: GENTAMICIN 80 MG in SODIUM CHLORIDE 0.9% IRRIGATIO 3,000 ML IRRIGATION ONE (13:10)
[2022-12-18] MEDS ORDERED: ceFAZolin 3,000 MG in SODIUM CHLORIDE 0.9% IRRIGATIO 3,000 ML IRRIGATION ONE (13:11)
[2022-12-18] MEDS ORDERED: TOBRAMYCIN SULFATE 1.2 GM VIAL MISCELLANE ONE (13:12)
[2022-12-18] MEDS ORDERED: GENTAMICIN 40 MG/ML 2 ML VIAL IRRIGATION ONE (13:15)
--- NOTE | 2022-12-18 13:23 | CDI ---
Documentation Clarification Form Date: 12/18/2022 1:08:41 PM From: Renee Alas RN, CCDS Email: [email or web address] Admit Date: 12/16/2022 2:04:00 AM Patient Name: Adeline Christiansen Visit Number: [id number] Discharge Date: ATTENTION: The Clinical Documentation Specialists (CDI) and [facility] Coding Staff appreciate your assistance in clarifying documentation. Please respond to the clarification below the line at the bottom and electronically sign. The CDI & [facility] Coding staff will review the response and follow-up if needed. Please note: Queries are made part of the Legal Health Record. If you have any questions, please contact the author of this message via ITS. Dr. Ugalde Abidarin Your patient has the documented symptom of Altered Mental Status in the ED note, H&P and progress notes. Additional clarification regarding the etiology/cause of this symptom is requested. History/Risk Factors: The patient underwent a back surgery one week ago but during the procedure, the patient had multiple episodes of cardiac arrest therefore the surgery was not completed. The patient had her incision stapled and did not complete the surgery. Medical history of osteoarthritis, HTN and CAD. Clinical Indicators: ED: "presents to the ED via EMS for a fever and intermittent altered mental status. The patient was A&O4 on my evaluation, however would go on confusing and unrelated tangents. Impression of post op infection and sepsis." H&P: "brought in by her family due to altered mental status, fever, and incisional drainage from the lumbar spine." 12/16 Consult: "She presented here to the emergency room last evening with a fever of 103 and altered mental status reported by her mom and brother." 12/17 Ortho: "AMS, fever, post-surgical incision drainage." 12/15 Labs: WBC 15.7, lactic acid 1.5, 12/15 BC positive for hemolytic streptococcus 12/[address]: Multilevel fusion surgery. Multilevel laminectomy defect which is obscured by the metal artifact. Subcutaneous fluid consistent with recent postsurgical changes and seroma and hematoma. Abscess not excluded at this point. VS: Lqdp079.3 and 102.6, HR 85, BP 102/60 Treatment: IV Ceftriaxone 1gm on 12/15 and 12/16. IV Cefazolin 2gm Q8H. IV Cefepime 2gm on 12/16 and 12/17. IV Daptomycin 500mg Q24H. 0.9 NS IV bolus 2.5L total on 12/15 then 0.9 NS @125mls/hr. Xanax prn for anxiety. Please clarify the etiology of the symptom of Altered Mental Status: [ ] Metabolic Encephalopathy due to Sepsis [ ] Other condition (please specify) [ ] Unable to determine MTDD
[2022-12-18] MEDS ORDERED: MAGNESIUM HYDROXIDE 2,400 MG/10 ML CUP PO PRN (14:19)
[2022-12-18] MEDS ORDERED: HYDROcodone/APAP 5-325MG 1 EACH TAB PO PRN (14:19)
[2022-12-18] MEDS ORDERED: SENNOSIDES-DOCUSATE SODIUM 1 EACH TAB PO PRN (14:19)
--- NOTE | 2022-12-18 14:40 | P.PN ---
Subjective Progress Note Date: 12/18/22 Hospital Course: Patient is a very pleasant 62-year-old female with a past medical history CAD status post stenting 6, recent cardiac arrest on 12/02/22, hypertension, hyperlipidemia, and recent lumbar fusion on 12/02/22 which was was only partially completed and aborted secondary to development of intraoperative ventricular arrhythmia. Patient presented to the emergency department overnight secondary to reports of lower back pain and fever progressively worsening over the past 2 days. She underwent full evaluation in the emergency department. CT thoracic and lumbar spine revealing subcutaneous fluid consistent with recent postsurgical changes with seroma/hematoma, abscess not excluded at this time. Labs completed and reviewed showing leukocytosis with WBC count of 15.7 elevated , ESR of 51, an elevated CRP of 17.4. Urinalysis was negative for infection. EKG was completed showing normal sinus rhythm at 86 bpm with T-wave inversion/abnormality in leads III and V6 which appears to be a new finding when compared to EKG completed 12/03/22 showing normal sinus rhythm at 83 bpm with no noted T-wave or ST abnormalities showing no signs of acute ischemia upon personal review and interpretation. Blood cultures obtained and sent to lab for analysis. Patient febrile upon arrival temp 103.3F. Patient was started on IV antibiotics. ID, orthopedics, pulmonology, and cardiology following. Subjective: Patient seen and examined at bedside. She still continues to have fevers. Was also hypotensive overnight. She denies any chest pain, shortness of breath, abdominal pain, nausea, vomiting, diarrhea, constipation, or urinary complaints. She continues to have pain in her back. Pertinent positives and negatives as discussed above, a complete review of systems was performed and all other systems are negative. Vitals Signs Reviewed. General: nontoxic, no distress, appears at stated age Derm: warm, dry, lumbar incision with no significant erythema or drainage Head: atraumatic, normocephalic, symmetric Eyes: EOMI, no lid lag, anicteric sclera Mouth: no lip lesion, mucus membranes moist Cardiovascular: S1S2 reg, no murmur Lungs: CTA bilateral, no rhonchi, no rales , no accessory muscle use Abdominal: soft, nontender to palpation, no guarding, no appreciable organomegaly Ext: no gross muscle atrophy, no edema, no contractures Neuro: CN II-XI grossly intact, no focal neuro deficits Psych: Alert, oriented, appropriate affect Data reviewed today: Lab data: WBC 11.3, hemoglobin 9.7 Sodium 137, potassium 3.2, creatinine 0.8, magnesium 1.9 Assessment and Plan: Patient is currently critically ill requiring IV antibiotics, close monitoring for sepsis and bacteremia. Being transferred to the medical ICU after her surgery. Active: Sepsis possibly secondary to postsurgical abscess Alphahemolytic streptococcus bacteremia Hypotensive Postsurgical seroma/hematoma Leukocytosis Status post recent lumbar fusion on 12/02/22 CAD status post stenting 6 and recent intraoperative ventricular arrhythmia on 12/02/22 -ID following, on cefazolin 2 g every 8 hours -Repeat blood cultures pending -Superficial wound cultures were taken yesterday, unlikely to be reliable given the high probability of coronary Gram-positive is mature skin contaminant -Deep cultures from OR will likely be useful to guide antibiotic regimen -Pulmonology note reviewed: Continue current therapy -Surgery today, ICU transfer following surgery -Currently holding aspirin and Plavix for at least 48 hours prior surgery -Continue telemetry Chronic: Hypertension Hyperlipidemia Thank you for allowing us to participate in the care of this pleasant patient. Do not hesitate to contact us with questions. Someone can be reached from the [facility] hospitalist group all hours of the day at [phone] or via [email or web address]. Objective - Vital Signs Vital signs: Vital Signs Temp 97.1 F L 12/18/22 10:49 Pulse 56 L 12/18/22 11:40 Resp 15 12/18/22 11:40 BP 101/50 12/18/22 11:40 Pulse Ox 100 12/18/22 11:40 FiO2 Intake & Output 12/17/22 12/18/22 12/18/22 18:59 06:59 18:59 Intake Total 2061 Output Total 1100 Balance 961 Intake: IV 1751 Blood Product 310 Rc As-1 Unit 310 [id number] Output: Urine 950 Estimated Blood Loss 150 Other: Voiding Method Bedside Commode Bedside Commode Toilet # Voids 3 3 1 - Labs CBC & Chem 7: 12/18/22 07:32 12/18/22 07:32 Labs: Abnormal Lab Results - Last 24 Hours (Table) 12/17/22 12/18/22 12/18/22 Range/Units 18:37 04:29 04:29 WBC 13.6 H 12.65 H (3.8-10.6) k/uL RBC 3.47 L 2.89 L (3.80-5.40) m/uL Hgb 9.5 L (12.0-15.0) g/dL Hct 29.1 L (37.2-46.3) % MCV 100.4 H 100.7 H (80.0-100.0) fL MCH 32.9 H (27.0-32.0) pg Immature Gran # 0.06 H (0.00-0.04) X 10*3/uL Neutrophils # 11.3 H 10.45 H (1.3-7.7) k/uL Lymphocytes # (1.0-4.8) k/uL Potassium 3.2 L (3.5-5.5) mmol/L BUN 8.4 L (9.0-27.0) mg/dL BUN/Creatinine Ratio 10.70 L (12.00-20.00) Ratio Glucose 117 H (70-110) mg/dL Calcium 7.7 L (8.7-10.3) mg/dL AST (14-36) U/L Total Protein (6.3-8.2) g/dL Albumin (3.5-5.0) g/dL Crossmatch 12/18/22 12/18/22 12/18/22 Range/Units 07:32 07:32 07:32 WBC 11.3 H (3.8-10.6) k/uL RBC 2.87 L (3.80-5.40) m/uL Hgb 9.7 L D (12.0-15.0) g/dL Hct 28.8 L (37.2-46.3) % MCV 100.5 H (80.0-100.0) fL MCH (27.0-32.0) pg Immature Gran # (0.00-0.04) X 10*3/uL Neutrophils # 9.6 H (1.3-7.7) k/uL Lymphocytes # 0.8 L (1.0-4.8) k/uL Potassium 3.2 L (3.5-5.5) mmol/L BUN (9.0-27.0) mg/dL BUN/Creatinine Ratio (12.00-20.00) Ratio Glucose 125 H (70-110) mg/dL Calcium 7.4 L (8.7-10.3) mg/dL AST 52 H (14-36) U/L Total Protein 5.0 L (6.3-8.2) g/dL Albumin 2.6 L (3.5-5.0) g/dL Crossmatch See Detail Microbiology - Last 24 Hours (Table) 12/15/22 22:50 Blood Culture Gram Stain - Preliminary Blood Blood Culture - Preliminary Alpha Hemolytic Streptococcus 12/18/22 04:08 Anaerobic Culture - Preliminary Back 12/18/22 04:08 Wound Culture - Preliminary Back
[2022-12-18] MEDS ORDERED: HYDROmorphone 0.5 MG/0.5 ML SYRINGE IVP ONE (16:02)
--- NOTE | 2022-12-18 17:51 | P.ANPRN ---
Procedure Note - Anesthesia - Invasive Line Right Central Line Time Out Performed: Yes (1115) Date of Procedure: 12/18/22 Time of Procedure: 11:15 Location of Patient: PreOp Preparation: Sterile Prep, Sterile Dressing Central Line Location: Internal Jugular Ultrasound Used: Yes Purpose - Visualization and Identification of Vasculature: Yes Image Stored and Saved: Yes Narrative: Central line placement per sterile protocol utilized. Informed consent obtained.Right Internal jugular vein cannulated under aseptic precautions. 3cc 1% lidocaine infiltrated initially after cleaning with iodine based prep and draping. Ultrasound used to locate the vein and seldinger technique used. 7-[place] triple-lumen central line inserted after the finding the needle with menhaden vessel pilot needle/catheter. Site was dressed with biopatch and tegaderm. Patient tolerated the procedure well. Tip position was confirmed with chest x-ray.
[2022-12-18 18:09] LABS: Glucose,Whole Blood 122 mg/dL (70-110)
[2022-12-18] MEDS: HYDROmorphone 1 MG/ML 1 ML SYRINGE IVP PRN (18:56)
[2022-12-18 20:32] LABS: HGB 9.5 gm/dL (11.4-16.0); MCH 33.2 pg (25.0-35.0); MCV 97.6 fL (80.0-100.0); Mean Platelet Volume 8.3; Platelet Count 286 k/uL (150-450); RBC 2.87 m/uL (3.80-5.40); RDW 14.9 % (11.5-15.5); WBC 7.9 k/uL (3.8-10.6)
[2022-12-18 20:40] LABS: African American GFR (CKD) >90 (>60 ml/min/1.73 sqM); Anion Gap 3 mmol/L; Blood Urea Nitrogen 7 mg/dL (7-17); Calcium 6.6 mg/dL (8.4-10.2); Carbon Dioxide 27 mmol/L (22-30); Chloride 110 mmol/L (98-107); Glucose 128 mg/dL (74-99); Non-African American GFR(CKD) >90 (>60 ml/min/1.73 sqM); Potassium 4.8 mmol/L (3.5-5.1); Sodium 140 mmol/L (137-145)
[2022-12-18] MEDS: CYCLOBENZAPRINE 10 MG TAB PO SCH (23:10)
[2022-12-18] MEDS: METOPROLOL SUCCINATE (ER) 25 MG TAB.ER.24H PO SCH (23:10)
[2022-12-18] MEDS: ATORVASTATIN 80 MG TAB PO SCH (23:10)
[2022-12-18] MEDS: DULoxetine HCL 60 MG CAPSULE.DR PO SCH (23:10)
[2022-12-18] MEDS: HYDROcodone/APAP 10-325MG 1 EACH TAB PO PRN (23:14)
[2022-12-18] MEDS: OXYBUTYNIN 10 MG TAB.ER.24 PO SCH (23:25)
[2022-12-18] MEDS: AMITRIPTYLINE HCL 25 MG TAB PO SCH (23:25)
[2022-12-18] MEDS: QUEtiapine 400 MG TAB PO SCH (23:25)
[2022-12-19] MEDS: HYDROmorphone 0.5 MG/0.5 ML SYRINGE IVP PRN ×4 (04:29→14:18)
[2022-12-19] MEDS: ALPRAZolam 0.25 MG TAB PO PRN ×2 (04:29→20:08)
[2022-12-19 05:01] LABS: ALT 42 U/L (4-34); AST 120 U/L (14-36); African American GFR (CKD) >90 (>60 ml/min/1.73 sqM); Albumin 2.4 g/dL (3.5-5.0); Alkaline Phosphatase 151 U/L (38-126); Anion Gap 5 mmol/L; Blood Urea Nitrogen 8 mg/dL (7-17); Calcium 7.1 mg/dL (8.4-10.2); Carbon Dioxide 24 mmol/L (22-30); Chloride 111 mmol/L (98-107); Glucose 123 mg/dL (74-99); Non-African American GFR(CKD) >90 (>60 ml/min/1.73 sqM); Potassium 3.9 mmol/L (3.5-5.1); Sodium 140 mmol/L (137-145); Total Bilirubin 0.4 mg/dL (0.2-1.3); Total Protein 4.5 g/dL (6.3-8.2)
[2022-12-19 05:03] LABS: Basophils % (A) 0 %; Eosinophils % (A) 0 %; Hypochromasia Slight; Lymphocytes # (A) 0.7 k/uL (1.0-4.8); Lymphocytes % (A) 9 %; MCH 32.6 pg (25.0-35.0); MCHC 33.4 g/dL (31.0-37.0); MCV 97.9 fL (80.0-100.0); Mean Platelet Volume 8.1; Monocytes # (A) 0.4 k/uL (0-1.0); Monocytes % (A) 5 %; Neutrophils # (A) 6.4 k/uL (1.3-7.7); Neutrophils % (A) 84 %; Platelet Count 276 k/uL (150-450); RBC 2.76 m/uL (3.80-5.40); RDW 15.1 % (11.5-15.5); WBC 7.6 k/uL (3.8-10.6)
[2022-12-19] MEDS ORDERED: SODIUM CHLORIDE 0.9% 1,000 ML IV ONE (05:40)
[2022-12-19] MEDS: PANTOPRAZOLE 40 MG TABLET PO SCH (06:59)
[2022-12-19] MEDS: LEVOTHYROXINE 125 MCG TAB PO SCH (06:59)
--- NOTE | 2022-12-19 07:49 | P.PN ---
Subjective Progress Note Date: 12/19/22 Principal diagnosis: 1. s/p Revision posteriolateral fusion L3-S1 with Removal of hardware L4-S1 2. Sepsis 3. Post-op infection Patient seen and examined this morning. Patient was resting comfortably in bed. Patient's pain is currently being managed on oral and IV medications. She has been hypotensive throughout the night, IV Levophed is infusing to assist with pressures. Reaves catheter is present with low output. Bolus had been provided. Patient was assisted with log-rolling to assess incision, she tolerated activity well. Surgical dressing is clean dry and intact with Hemovac present, output of 90 mLs overnight. Patient does express decreased pain into her bilateral lower extremities. Continued to encourage patient to use incentive spirometer. Patient has been afebrile, denies nausea/vomiting, or chest pain. Objective - Vital Signs Vital signs: Vital Signs Temp 97.6 F 12/19/22 04:00 Pulse 54 L 12/19/22 07:00 Resp 9 L 12/19/22 07:00 BP 105/55 12/19/22 07:00 Pulse Ox 99 12/19/22 07:00 FiO2 95 12/18/22 20:00 Intake & Output 12/18/22 12/19/22 12/19/22 18:59 06:59 18:59 Intake Total 3104.04 2562.596 225 Output Total 1725 460 120 Balance 1379.04 2102.596 105 Weight 86.7 kg Intake: IV 2551 2550 225 0.9 @ KVO 100 Invasive Line 4 30 Sodium Chloride 0.9% 1, 125 1500 125 000 ml @ 125 mls/hr IV . Q8H [facility] Rx#:[id number] Sodium Chloride 0.9% 1, 1000 000 ml @ 999 mls/hr IV . Q1H1M [facility] Rx#:[id number] ceFAZolin 2 gm In Sodium 50 Chloride 0.9% 50 ml @ 100 mls/hr IVPB Q8HR [facility] Rx# :[id number] Intake, IV Titration 3.04 12.596 Amount Norepinephrine 4 mg In 3.04 12.596 Sodium Chloride 0.9% 250 ml @ 0.03 MCG/KG/MIN 8. 687 mls/hr IV .Q24H [facility] Rx#:[id number] Oral 240 Blood Product 310 Rc As-1 Unit 310 [id number] Output: Drainage 0 0 90 Left Lower Posterior Back 0 0 90 Urine 1575 460 30 Estimated Blood Loss 150 Other: Voiding Method Toilet Indwelling Catheter # Voids 1 # Bowel Movements 0 0 ABP, PAP, CO, CI - Last Documented Arterial Blood Pressure 120/55 - Exam General: The patient is awake and alert, in no acute distress Skin: Skin is warm and dry with no obvious rashes or lesions. Surgical incision to the lumbar spine, dressing CDI with hemovac present. Eye: Pupils are equal, round and reactive to light, extra-ocular movements are i ntact; there is normal conjunctiva bilaterally. Neck: The neck is supple, there is no tenderness and ROM intact. Cardiovascular: There is a regular rate and rhythm. No murmur, rub or gallop is appreciated. Respiratory: Lungs are clear to auscultation, respirations are non-labored, breath sounds are equal. Gastrointestinal: Soft, non-distended, non-tender abdomen. Back: There is no tenderness to palpation in the midline, paralumbar, parathoracic or buttocks region. There is no obvious deformity. Musculoskeletal: ROM limited secondary to pain and stiffness from surgical procedure. Shoulder abduction 5/5, elbow flexors 5/5, wrist dorsiflexors 5/5. finger abductor 5/5, info analyst 5/5, hip flexor 4/5, knee flexor 4/5, ankle dorsiflexor 4/5, ankle plantarflexion 4/5 and extensor hallucis 4/5. Neurological: CN 2-12 intact. There are no obvious motor or sensory deficits. Movement and coordination equal and intact. Sensory exam to light touch intact C5-T1 and intact from L2-S1. Reflexes 2/4 in bilateral upper and lower extremities. Negative Hoffmans, babinski, and clonus signs. Psychiatric: Cooperative, appropriate mood & affect, normal judgment. - Labs CBC & Chem 7: 12/19/22 04:44 12/19/22 04:44 Labs: Abnormal Lab Results - Last 24 Hours (Table) 12/18/22 12/18/22 12/18/22 Range/Units 04:29 04:29 07:32 WBC 12.65 H (4.50-10.00) X 10*3/uL RBC 2.89 L (4.10-5.20) X 10*6/uL Hgb 9.5 L (12.0-15.0) g/dL Hct 29.1 L (37.2-46.3) % MCV 100.7 H (80.0-97.0) fL MCH 32.9 H (27.0-32.0) pg Immature Gran # 0.06 H (0.00-0.04) X 10*3/uL Neutrophils # 10.45 H (1.80-7.70) X 10*3/uL Lymphocytes # (1.0-4.8) k/uL Potassium 3.2 L (3.5-5.5) mmol/L Chloride (98-107) mmol/L BUN 8.4 L (9.0-27.0) mg/dL Creatinine (0.52-1.04) mg/dL BUN/Creatinine Ratio 10.70 L (12.00-20.00) Ratio Glucose 117 H (70-110) mg/dL POC Glucose (mg/dL) (70-110) mg/dL Calcium 7.7 L (8.7-10.3) mg/dL AST (14-36) U/L ALT (4-34) U/L Alkaline Phosphatase (38-126) U/L Total Protein (6.3-8.2) g/dL Albumin (3.5-5.0) g/dL Crossmatch See Detail 12/18/22 12/18/22 12/18/22 Range/Units 07:32 07:32 18:07 WBC 11.3 H (4.50-10.00) X 10*3/uL RBC 2.87 L (4.10-5.20) X 10*6/uL Hgb 9.7 L D (12.0-15.0) g/dL Hct 28.8 L (37.2-46.3) % MCV 100.5 H (80.0-97.0) fL MCH (27.0-32.0) pg Immature Gran # (0.00-0.04) X 10*3/uL Neutrophils # 9.6 H (1.80-7.70) X 10*3/uL Lymphocytes # 0.8 L (1.0-4.8) k/uL Potassium 3.2 L (3.5-5.5) mmol/L Chloride (98-107) mmol/L BUN (9.0-27.0) mg/dL Creatinine (0.52-1.04) mg/dL BUN/Creatinine Ratio (12.00-20.00) Ratio Glucose 125 H (70-110) mg/dL POC Glucose (mg/dL) 122 H (70-110) mg/dL Calcium 7.4 L (8.7-10.3) mg/dL AST 52 H (14-36) U/L ALT (4-34) U/L Alkaline Phosphatase (38-126) U/L Total Protein 5.0 L (6.3-8.2) g/dL Albumin 2.6 L (3.5-5.0) g/dL Crossmatch 12/18/22 12/18/22 12/19/22 Range/Units 20:19 20:19 04:44 WBC (4.50-10.00) X 10*3/uL RBC 2.87 L 2.76 L (4.10-5.20) X 10*6/uL Hgb 9.5 L 9.0 L (12.0-15.0) g/dL Hct 28.0 L 27.0 L (37.2-46.3) % MCV (80.0-97.0) fL MCH (27.0-32.0) pg Immature Gran # (0.00-0.04) X 10*3/uL Neutrophils # (1.80-7.70) X 10*3/uL Lymphocytes # 0.7 L (1.0-4.8) k/uL Potassium (3.5-5.5) mmol/L Chloride 110 H (98-107) mmol/L BUN (9.0-27.0) mg/dL Creatinine (0.52-1.04) mg/dL BUN/Creatinine Ratio (12.00-20.00) Ratio Glucose 128 H (70-110) mg/dL POC Glucose (mg/dL) (70-110) mg/dL Calcium 6.6 L (8.7-10.3) mg/dL AST (14-36) U/L ALT (4-34) U/L Alkaline Phosphatase (38-126) U/L Total Protein (6.3-8.2) g/dL Albumin (3.5-5.0) g/dL Crossmatch 12/19/22 Range/Units 04:44 WBC (4.50-10.00) X 10*3/uL RBC (4.10-5.20) X 10*6/uL Hgb (12.0-15.0) g/dL Hct (37.2-46.3) % MCV (80.0-97.0) fL MCH (27.0-32.0) pg Immature Gran # (0.00-0.04) X 10*3/uL Neutrophils # (1.80-7.70) X 10*3/uL Lymphocytes # (1.0-4.8) k/uL Potassium (3.5-5.5) mmol/L Chloride 111 H (98-107) mmol/L BUN (9.0-27.0) mg/dL Creatinine 0.47 L (0.52-1.04) mg/dL BUN/Creatinine Ratio (12.00-20.00) Ratio Glucose 123 H (70-110) mg/dL POC Glucose (mg/dL) (70-110) mg/dL Calcium 7.1 L (8.7-10.3) mg/dL AST 120 H (14-36) U/L ALT 42 H (4-34) U/L Alkaline Phosphatase 151 H (38-126) U/L Total Protein 4.5 L (6.3-8.2) g/dL Albumin 2.4 L (3.5-5.0) g/dL Crossmatch Microbiology - Last 24 Hours (Table) 12/17/22 23:00 Blood Culture - Preliminary Blood No Growth after 24 hours 12/17/22 23:15 Blood Culture - Preliminary Blood No Growth after 24 hours 12/18/22 13:30 Wound Culture - Preliminary Back 12/18/22 13:30 Anaerobic Culture - Preliminary Back 12/18/22 13:30 Wound Culture - Preliminary Back 12/18/22 13:30 Anaerobic Culture - Preliminary Back 12/18/22 04:08 Gram Stain - Preliminary Back Wound Culture - Preliminary 12/15/22 22:50 Blood Culture Gram Stain - Preliminary Blood Blood Culture - Preliminary Alpha Hemolytic Streptococcus 12/18/22 04:08 Anaerobic Culture - Preliminary Back Assessment and Plan Assessment: Postop day 1: Incision and drainage with irrigation and debridement with lumbar laminectomy and decompression 1. s/p Revision posteriolateral fusion L3-S1 with Removal of hardware L4-S1 2. Sepsis 3. Post-op infection Plan: We will continue to monitor incision, labs, and patient symptoms at this time. We may proceed with irrigation and debridement with decompression later this week if indicated. -Appreciate databases software consultant and team management. -Continue with IV antibiotic -Activity: Ambulate QID, OOB all meals, up and about, limit lifting bending twisting to less than 5 lbs. Use walker or cane if needed for stability. -Daily PT/OT, increase ambulation strength and balance. -Brace when up and about, not needed in bed or chair -Pain control: Adequate at this time -Meds: reviewed -GI ppx: senna, Miralax -DVT PPX: Heparin -Reaves Catheter: May be removed when patient is up and about, unless indicated by medicine. -Drain management; maintain and record output q shift. -Hygiene: Shower today. Maintain dressing clean and dry. Meticulous cleaning after BMs away from the incision site -Encourage IS 10x/hr -Dispo: pending I reviewed and discussed this case with my attending Dr. Nova, whom has reviewed this chart and films and is in agreement with assessment and plan of care as outlined above. I have personally seen and examined the patient, performed the documentation and the assessment and plan as written. Number of minutes spent on the visit: 15m.
[2022-12-19] MEDS: PREGABALIN 75 MG CAP PO SCH ×3 (08:07→20:08)
--- NOTE | 2022-12-19 08:25 | P.PN ---
Subjective The patient is a pleasant 62-year-old female patient was coronary artery disease and prior stenting of the LAD and the patient follows with Dr. Dorantes irregularly as well as hypertension and dyslipidemia and chronic back pain was admitted to the hospital with a change in mental status. We consulted see the patient for preoperative cardiac assessment before noncardiac surgery. The patient was admitted on December 022022 to undergo an elective L4 to S1 decompression. During her surgery and in the middle of the surgery she developed hypotension and also she developed "ventricular arrhythmia". At that point the surgery was terminated. Subsequently the patient underwent further workup including cardiac enzymes came in to be abnormal was elevated troponin with no significant EKG changes. An echo was performed and showed normal biventricular systolic function was no significant valvular abnormalities. Then a heart catheterization was performed by Dr. Dorantes at that point and that revealed patent stent in the LAD was mild to moderate nonobstructive coronary artery disease felt to be the same as before. Medical treatment was advised. The patient was discharged in stable medical condition. She was admitted again to the hospital with a change in mental status and also elevated temperature. Further investigation including computed tomography scan was performed and showed possible abscess. The patient is in process of having surgery. From a cardiac standpoint of view, she remains a stable was no pain in the chest and no shortness of breath and no dizziness or lightheadedness or any feeling of heart racing or fluttering or presyncope or syncope. She has been compliant with her medications and currently she is anti-ischemic medications his beta danish at home she was receiving statin and that was stopped. She is not on aspirin because of the surgery. From the cardiac standpoint of view, the patient can proceed with the surgery. Examination is remarkable for stable vital signs with regular rhythm and systolic murmur at the right upper sternal border with a clear breathing sounds bilaterally and no lower extent is edema noted. 12/19 Patient seen and examined. Patient underwent spine surgery with cultures taken. Preliminary Gram stain does show rare gram-positive cocci. Cultures pending. Patient required low dose norepinephrine was was discontinued approximately 20 minutes ago. Blood pressure is borderline 100s over 60s. She denies any chest pain or pressure. Is receiving IV fluids. PHYSICAL EXAMINATION Vital signs reviewed. CONSTITUTIONAL: No apparent distress. HEENT: Head is normocephalic. Pupils are equal, round. Sclerae anicteric. Mucous membranes of the mouth are moist. No JVD. No carotid bruit. CHEST EXAMINATION: Lungs are clear to auscultation. No chest wall tenderness is noted on palpation or with deep breathing. HEART EXAMINATION: Regular rate and rhythm. S1, S2 heard. No murmurs, gallops or rub. ABDOMEN: Soft, nontender. Positive bowel sounds. EXTREMITIES: 2+ peripheral pulses, no lower extremity edema and no calf tenderness. NEUROLOGIC EXAMINATION: Patient is awake, alert and oriented x3. Assessment Change in mental status Elevated temperature Possible abscess on the computed tomography scan of the spine Coronary artery disease appeared to be stable Recent NSTEMI without need for stenting 12/04/22 Recent VFib during previous surgery Hypertension Dyslipidemia Plan Continue with current regimen with Toprol 25 mg daily. Blood pressure is borderline however off of norepinephrine. If blood pressures still remain borderline may add Midodrin. No further recs from a cardiology standpoint. Please call with questions. Objective - Vital Signs Vital signs: Vital Signs Temp 97.6 F 12/19/22 04:00 Pulse 54 L 12/19/22 07:00 Resp 9 L 12/19/22 07:00 BP 105/55 12/19/22 07:00 Pulse Ox 99 12/19/22 07:00 FiO2 95 12/18/22 20:00 Intake & Output 12/18/22 12/19/22 12/19/22 18:59 06:59 18:59 Intake Total 3104.04 2562.596 235.81 Output Total 1725 460 120 Balance 1379.04 2102.596 115.81 Weight 86.7 kg Intake: IV 2551 2550 225 0.9 @ KVO 100 Invasive Line 4 30 Sodium Chloride 0.9% 1, 125 1500 125 000 ml @ 125 mls/hr IV . Q8H [facility] Rx#:[id number] Sodium Chloride 0.9% 1, 1000 000 ml @ 999 mls/hr IV . Q1H1M [facility] Rx#:[id number] ceFAZolin 2 gm In Sodium 50 Chloride 0.9% 50 ml @ 100 mls/hr IVPB Q8HR [facility] Rx# :[id number] Intake, IV Titration 3.04 12.596 10.81 Amount Norepinephrine 4 mg In 3.04 12.596 10.81 Sodium Chloride 0.9% 250 ml @ 0.03 MCG/KG/MIN 8. 687 mls/hr IV .Q24H [facility] Rx#:[id number] Oral 240 Blood Product 310 Rc As-1 Unit 310 [id number] Output: Drainage 0 0 90 Left Lower Posterior Back 0 0 90 Urine 1575 460 30 Estimated Blood Loss 150 Other: Voiding Method Toilet Indwelling Catheter # Voids 1 # Bowel Movements 0 0 ABP, PAP, CO, CI - Last Documented Arterial Blood Pressure 120/55 - Labs CBC & Chem 7: 12/19/22 04:44 12/19/22 04:44 Labs: Abnormal Lab Results - Last 24 Hours (Table) 12/18/22 12/18/22 12/18/22 Range/Units 04:29 04:29 07:32 WBC 12.65 H (4.50-10.00) X 10*3/uL RBC 2.89 L (4.10-5.20) X 10*6/uL Hgb 9.5 L (12.0-15.0) g/dL Hct 29.1 L (37.2-46.3) % MCV 100.7 H (80.0-97.0) fL MCH 32.9 H (27.0-32.0) pg Immature Gran # 0.06 H (0.00-0.04) X 10*3/uL Neutrophils # 10.45 H (1.80-7.70) X 10*3/uL Lymphocytes # (1.0-4.8) k/uL Potassium 3.2 L (3.5-5.5) mmol/L Chloride (98-107) mmol/L BUN 8.4 L (9.0-27.0) mg/dL Creatinine (0.52-1.04) mg/dL BUN/Creatinine Ratio 10.70 L (12.00-20.00) Ratio Glucose 117 H (70-110) mg/dL POC Glucose (mg/dL) (70-110) mg/dL Calcium 7.7 L (8.7-10.3) mg/dL AST (14-36) U/L ALT (4-34) U/L Alkaline Phosphatase (38-126) U/L Total Protein (6.3-8.2) g/dL Albumin (3.5-5.0) g/dL Crossmatch See Detail 03/12/18/22 12/18/22 Range/Units 07:32 18:07 20:19 WBC (4.50-10.00) X 10*3/uL RBC 2.87 L (4.10-5.20) X 10*6/uL Hgb 9.5 L (12.0-15.0) g/dL Hct 28.0 L (37.2-46.3) % MCV (80.0-97.0) fL MCH (27.0-32.0) pg Immature Gran # (0.00-0.04) X 10*3/uL Neutrophils # (1.80-7.70) X 10*3/uL Lymphocytes # (1.0-4.8) k/uL Potassium 3.2 L (3.5-5.5) mmol/L Chloride (98-107) mmol/L BUN (9.0-27.0) mg/dL Creatinine (0.52-1.04) mg/dL BUN/Creatinine Ratio (12.00-20.00) Ratio Glucose 125 H (70-110) mg/dL POC Glucose (mg/dL) 122 H (70-110) mg/dL Calcium 7.4 L (8.7-10.3) mg/dL AST 52 H (14-36) U/L ALT (4-34) U/L Alkaline Phosphatase (38-126) U/L Total Protein 5.0 L (6.3-8.2) g/dL Albumin 2.6 L (3.5-5.0) g/dL Crossmatch 12/18/22 12/19/22 12/19/22 Range/Units 20:19 04:44 04:44 WBC (4.50-10.00) X 10*3/uL RBC 2.76 L (4.10-5.20) X 10*6/uL Hgb 9.0 L (12.0-15.0) g/dL Hct 27.0 L (37.2-46.3) % MCV (80.0-97.0) fL MCH (27.0-32.0) pg Immature Gran # (0.00-0.04) X 10*3/uL Neutrophils # (1.80-7.70) X 10*3/uL Lymphocytes # 0.7 L (1.0-4.8) k/uL Potassium (3.5-5.5) mmol/L Chloride 110 H 111 H (98-107) mmol/L BUN (9.0-27.0) mg/dL Creatinine 0.47 L (0.52-1.04) mg/dL BUN/Creatinine Ratio (12.00-20.00) Ratio Glucose 128 H 123 H (70-110) mg/dL POC Glucose (mg/dL) (70-110) mg/dL Calcium 6.6 L 7.1 L (8.7-10.3) mg/dL AST 120 H (14-36) U/L ALT 42 H (4-34) U/L Alkaline Phosphatase 151 H (38-126) U/L Total Protein 4.5 L (6.3-8.2) g/dL Albumin 2.4 L (3.5-5.0) g/dL Crossmatch Microbiology - Last 24 Hours (Table) 12/17/22 23:00 Blood Culture - Preliminary Blood No Growth after 24 hours 12/17/22 23:15 Blood Culture - Preliminary Blood No Growth after 24 hours 12/18/22 13:30 Wound Culture - Preliminary Back 12/18/22 13:30 Anaerobic Culture - Preliminary Back 12/18/22 13:30 Wound Culture - Preliminary Back 12/18/22 13:30 Anaerobic Culture - Preliminary Back 12/18/22 04:08 Gram Stain - Preliminary Back Wound Culture - Preliminary 12/15/22 22:50 Blood Culture Gram Stain - Preliminary Blood Blood Culture - Preliminary Alpha Hemolytic Streptococcus 12/18/22 04:08 Anaerobic Culture - Preliminary Back
--- NOTE | 2022-12-19 10:12 | P.PN ---
Subjective Progress Note Date: 12/19/22 Hospital Course: Patient is a very pleasant 62-year-old female with a past medical history CAD status post stenting 6, recent cardiac arrest on 12/02/22, hypertension, hyperlipidemia, and recent lumbar fusion on 12/02/22 which was was only partially completed and aborted secondary to development of intraoperative ventricular arrhythmia. Patient presented to the emergency department overnight secondary to reports of lower back pain and fever progressively worsening over the past 2 days. She underwent full evaluation in the emergency department. CT thoracic and lumbar spine revealing subcutaneous fluid consistent with recent postsurgical changes with seroma/hematoma, abscess not excluded at this time. Labs completed and reviewed showing leukocytosis with WBC count of 15.7 elevated , ESR of 51, an elevated CRP of 17.4. Urinalysis was negative for infection. EKG was completed showing normal sinus rhythm at 86 bpm with T-wave inversion/abnormality in leads III and V6 which appears to be a new finding when compared to EKG completed 12/03/22 showing normal sinus rhythm at 83 bpm with no noted T-wave or ST abnormalities showing no signs of acute ischemia upon personal review and interpretation. Blood cultures obtained and sent to lab for analysis. Patient febrile upon arrival temp 103.3F. Patient was started on IV antibiotics. ID, orthopedics, pulmonology, and cardiology following. She is now status post I&D with irrigation and a primary and with lumbar laminectomy and decompression. She was on pressors overnight postoperatively, currently remains in the ICU, plan to downgrade to stepdown unit. Subjective: Patient seen and examined at bedside. Now off of vasopressors. She claims that her back pain has improved. She denies any chest pain, shortness of breath, abdominal pain, nausea, vomiting, diarrhea, constipation, or urinary complaints. Has a Reaves catheter in place. Pertinent positives and negatives as discussed above, a complete review of systems was performed and all other systems are negative. Vitals Signs Reviewed. General: nontoxic, no distress, appears at stated age Derm: warm, dry, lumbar dressing appears clean, dry, intact, drain in place Head: atraumatic, normocephalic, symmetric Eyes: EOMI, no lid lag, anicteric sclera Mouth: no lip lesion, mucus membranes moist Cardiovascular: S1S2 reg, no murmur Lungs: CTA bilateral, no rhonchi, no rales , no accessory muscle use Abdominal: soft, nontender to palpation, no guarding, no appreciable organomegaly Ext: no gross muscle atrophy, no edema, no contractures Neuro: CN II-XI grossly intact, no focal neuro deficits Psych: Alert, oriented, appropriate affect Data reviewed today: Lab data: WBC 7.6, hemoglobin 9, sodium 140, creatinine 2.47, T bili 0.4, AST 120, ALT 42, ALP 151 Wound cultures from OR, repeat blood culture shows no growth to date Assessment and Plan: Patient is currently critically ill requiring IV antibiotics, close monitoring for sepsis and bacteremia. She is now status post I&D. Briefly he did require vasopressors, will be transferred out of the ICU to stepdown unit. Active: Septic shock secondary to postsurgical abscess, status post I&D Alphahemolytic streptococcus bacteremia Postsurgical seroma/hematoma Status post recent lumbar fusion on 12/02/22 Normocytic blood loss anemia, expected outcome of surgery CAD status post stenting 6 and recent intraoperative ventricular arrhythmia on 12/02/22 -Off of vasopressors -ID following, on cefazolin 2 g every 8 hours -Repeat blood cultures no growth to date -Awaiting surgical wound cultures -Orthospine note reviewed: Continue PT/OT, discontinue Reaves catheter when patient is able to get up and out of the bed -Pain regimen per surgery, currently on IV Dilaudid and oral [place] as needed -Cardiology note reviewed: Continue metoprolol, may consider Midodrin if she Continues to be hypotensive -Currently holding aspirin and Plavix -No active bleeding -Continue telemetry -Repeat CBC tomorrow to monitor for blood count, repeat BMP and magnesium tomorrow to monitor electrolytes post surgically Resolved: Leukocytosis Chronic: Hypertension Hyperlipidemia Thank you for allowing us to participate in the care of this pleasant patient. Do not hesitate to contact us with questions. Someone can be reached from the [facility] hospitalist group all hours of the day at [phone] or via [employer]. Objective - Vital Signs Vital signs: Vital Signs Temp 97.5 F L 12/19/22 08:00 Pulse 54 L 12/19/22 09:45 Resp 17 12/19/22 09:00 BP 101/60 12/19/22 09:15 Pulse Ox 97 12/19/22 09:45 FiO2 95 12/18/22 20:00 Intake & Output 12/18/22 12/19/22 12/19/22 18:59 06:59 18:59 Intake Total 3104.04 2562.596 660.81 Output Total 1725 460 180 Balance 1379.04 2102.596 480.81 Weight 86.7 kg Intake: IV 2551 2550 650 0.9 @ KVO 100 Invasive Line 4 30 Sodium Chloride 0.9% 1, 125 1500 500 000 ml @ 125 mls/hr IV . Q8H [facility] Rx#:[id number] Sodium Chloride 0.9% 1, 1000 000 ml @ 999 mls/hr IV . Q1H1M [facility] Rx#:[id number] ceFAZolin 2 gm In Sodium 50 50 Chloride 0.9% 50 ml @ 100 mls/hr IVPB Q8HR [facility] Rx# :[id number] Intake, IV Titration 3.04 12.596 10.81 Amount Norepinephrine 4 mg In 3.04 12.596 10.81 Sodium Chloride 0.9% 250 ml @ 0.03 MCG/KG/MIN 8. 687 mls/hr IV .Q24H [facility] Rx#:[id number] Oral 240 Blood Product 310 Rc As-1 Unit 310 [id number] Output: Drainage 0 0 90 Left Lower Posterior Back 0 0 90 Urine 1575 460 90 Estimated Blood Loss 150 Other: Voiding Method Toilet Indwelling Catheter Indwelling Catheter # Voids 1 # Bowel Movements 0 0 ABP, PAP, CO, CI - Last Documented Arterial Blood Pressure 91/44 - Labs CBC & Chem 7: 12/19/22 04:44 12/19/22 04:44 Labs: Abnormal Lab Results - Last 24 Hours (Table) 12/18/22 12/18/22 12/18/22 Range/Units 04:29 07:32 18:07 RBC (3.80-5.40) m/uL Hgb (11.4-16.0) gm/dL Hct (34.0-46.0) % Lymphocytes # (1.0-4.8) k/uL Potassium 3.2 L (3.5-5.5) mmol/L Chloride (98-107) mmol/L BUN 8.4 L (9.0-27.0) mg/dL Creatinine (0.52-1.04) mg/dL BUN/Creatinine Ratio 10.70 L (12.00-20.00) Ratio Glucose 117 H (70-110) mg/dL POC Glucose (mg/dL) 122 H (70-110) mg/dL Calcium 7.7 L (8.7-10.3) mg/dL AST (14-36) U/L ALT (4-34) U/L Alkaline Phosphatase (38-126) U/L Total Protein (6.3-8.2) g/dL Albumin (3.5-5.0) g/dL Crossmatch See Detail 12/18/22 12/18/22 12/19/22 Range/Units 20:19 20:19 04:44 RBC 2.87 L 2.76 L (3.80-5.40) m/uL Hgb 9.5 L 9.0 L (11.4-16.0) gm/dL Hct 28.0 L 27.0 L (34.0-46.0) % Lymphocytes # 0.7 L (1.0-4.8) k/uL Potassium (3.5-5.5) mmol/L Chloride 110 H (98-107) mmol/L BUN (9.0-27.0) mg/dL Creatinine (0.52-1.04) mg/dL BUN/Creatinine Ratio (12.00-20.00) Ratio Glucose 128 H (70-110) mg/dL POC Glucose (mg/dL) (70-110) mg/dL Calcium 6.6 L (8.7-10.3) mg/dL AST (14-36) U/L ALT (4-34) U/L Alkaline Phosphatase (38-126) U/L Total Protein (6.3-8.2) g/dL Albumin (3.5-5.0) g/dL Crossmatch 12/19/22 Range/Units 04:44 RBC (3.80-5.40) m/uL Hgb (11.4-16.0) gm/dL Hct (34.0-46.0) % Lymphocytes # (1.0-4.8) k/uL Potassium (3.5-5.5) mmol/L Chloride 111 H (98-107) mmol/L BUN (9.0-27.0) mg/dL Creatinine 0.47 L (0.52-1.04) mg/dL BUN/Creatinine Ratio (12.00-20.00) Ratio Glucose 123 H (70-110) mg/dL POC Glucose (mg/dL) (70-110) mg/dL Calcium 7.1 L (8.7-10.3) mg/dL AST 120 H (14-36) U/L ALT 42 H (4-34) U/L Alkaline Phosphatase 151 H (38-126) U/L Total Protein 4.5 L (6.3-8.2) g/dL Albumin 2.4 L (3.5-5.0) g/dL Crossmatch Microbiology - Last 24 Hours (Table) 12/18/22 13:30 Gram Stain - Preliminary Back Wound Culture - Preliminary 12/18/22 13:30 Gram Stain - Preliminary Back Wound Culture - Preliminary 12/17/22 23:00 Blood Culture - Preliminary Blood No Growth after 24 hours 12/17/22 23:15 Blood Culture - Preliminary Blood No Growth after 24 hours 12/18/22 13:30 Anaerobic Culture - Preliminary Back 12/18/22 13:30 Anaerobic Culture - Preliminary Back 12/18/22 04:08 Gram Stain - Preliminary Back Wound Culture - Preliminary 12/15/22 22:50 Blood Culture Gram Stain - Preliminary Blood Blood Culture - Preliminary Alpha Hemolytic Streptococcus 12/18/22 04:08 Anaerobic Culture - Preliminary Back
--- NOTE | 2022-12-19 12:31 | P.PN ---
Subjective Progress Note Date: 12/19/22 Principal diagnosis: Sepsis, s/p Revision posteriolateral fusion L3-S1 with Removal of hardware L4- S1, postoperative day #1 This is a 62-year-old female patient with a known history of coronary artery disease with previous stent placement, hyperlipidemia, hypertension, urinary incontinence, hypothyroidism, chronic tobacco dependence of nearly 50 years, ch ronic back pain. She had been admitted on 12/02/2022 for an elective L4-S1 decompression and fusion. During the procedure however she had developed hypotension, ventricular fibrillation and required fluid resuscitation and epinephrine and norepinephrine then the surgical site was urgently closed w ithout completion and she was intubated on the mechanical ventilator and we had seen the patient in the intensive care unit. She did undergo cardiac catheterization that admission and was found to have no significant disease in the proximal RCA that had previously been stented. There was a branch of the RCA that was 60% to 70% narrowed. Major diagonal has 60-70% narrowing. LAD was patent. Left main and circumflex are free of significant disease. No further progression of her previous CAD. She subsequently recovered and was discharged home on 12/09/2022. She still had dilia intact. She did have some oozing of her surgical site that she states she was placing pads on and the drainage has stopped the last couple of days. She presented here to the emergency room last evening with a fever of 103 and altered mental status reported by her mom and brother. Chest x-ray revealed no acute cardiopulmonary process. A computed tomography scan can of the spine revealed multilevel laminectomy defects which is obscured by the metal artifact. Subcutaneous fluid consistent with recent po stsurgical changes and seroma and hematoma. Abscess could not be excluded. White count 15.7. Hemoglobin 12.4. Sodium 135. Potassium 3.7. Bicarb 28. BUN 9. Creatinine 0.85. Glucose 123. C-reactive protein 17.4. AST 24. ALT 20. Urinalysis clean. She had been initiated on ceftriaxone and subsequently cefazolin. Infectious disease has been consulted. She is now on daptomycin and cefepime. She is seen today in consultation for possible return to the OR and preop clearance. She currently denies any shortness of breath, cough or congestion. She states she has not smoked since October 2022. She is not on home oxygen. She is currently maintaining O2 saturation in the 90s on room air. She remains febrile with a temperature of 102.3. No tachycardia. No tachypnea. 0.9% normal saline at 125 ML's per hour. The patient is seen today 12/17/2022 in follow-up on the regular medical floor. She is currently resting. The comfortably in bed. Awake and alert in no acute distress. She is maintaining O2 saturations in the 90s on room air. Current temperature 100.8. A pressure stable. Preliminary blood culture reveals Streptococcus species. Labs pending today. Antibiotics changed to cefazolin per ID services. 0.9% normal saline at 125 an hour. The patient is seen today 12/18/2022 in follow-up on the regular medical floor. Awake and alert in no acute distress. Resting comfortably in bed. Denies any worsening shortness of breath, cough or congestion. Maintaining good O2 saturations in the 90s on room air. Plan is for incision and drainage with irrigation and debridement of the lumbar spine today. Blood cultures positive for alpha hemolytic streptococcus. Wound cultures are pending. White count 11.3. Hemoglobin 9.7. Sodium 137. Potassium 3.2. Bicarb 25. BUN 8. Creatinine 0.66. Glucose 125. She is continued on cefazolin. Normal saline at 125 ML's per hour. Reevaluated today on 12/19/2022, patient is status post revision of posterior lateral fusion L3 S1 with removal of hardware L4-S1. Patient had a relatively uneventful surgery yesterday, her blood pressure was soft, hence she was admitted to the ICU, required norepinephrine initially in the OR and in the ICU, Patient is presently on 4 L nasal cannula her IV fluid is 0.9 normal saline at 1 25 mL/h, presently off norepinephrine. Patient has a JVP drain in place, remains on cefazolin. Being followed by infectious disease. WBC count is 7.6 hemoglobin is 9 lites are normal renal profile is normal, slightly elevated liver enzymes were noted. Pain seems to be under good control. Patient has no specific complaints Objective - Vital Signs Vital signs: Vital Signs Temp 97.6 F 12/19/22 12:00 Pulse 55 L 12/19/22 12:00 Resp 14 12/19/22 12:00 BP 103/60 12/19/22 12:00 Pulse Ox 95 12/19/22 12:02 FiO2 95 12/18/22 20:00 Intake & Output 12/18/22 12/19/22 12/19/22 18:59 06:59 18:59 Intake Total 3104.04 2562.596 910.81 Output Total 1725 460 233 Balance 1379.04 2102.596 677.81 Weight 86.7 kg Intake: IV 2551 2550 900 0.9 @ KVO 100 Invasive Line 4 30 Sodium Chloride 0.9% 1, 125 1500 750 000 ml @ 125 mls/hr IV . Q8H [facility] Rx#:[id number] Sodium Chloride 0.9% 1, 1000 000 ml @ 999 mls/hr IV . Q1H1M [facility] Rx#:[id number] ceFAZolin 2 gm In Sodium 50 50 Chloride 0.9% 50 ml @ 100 mls/hr IVPB Q8HR [facility] Rx# :[id number] Intake, IV Titration 3.04 12.596 10.81 Amount Norepinephrine 4 mg In 3.04 12.596 10.81 Sodium Chloride 0.9% 250 ml @ 0.03 MCG/KG/MIN 8. 687 mls/hr IV .Q24H [facility] Rx#:[id number] Oral 240 Blood Product 310 Rc As-1 Unit 310 [id number] Output: Drainage 0 0 90 Left Lower Posterior Back 0 0 90 Urine 1575 460 143 Estimated Blood Loss 150 Other: Voiding Method Toilet Indwelling Catheter Indwelling Catheter # Voids 1 # Bowel Movements 0 0 ABP, PAP, CO, CI - Last Documented Arterial Blood Pressure 91/44 - Exam Physical Exam: Revealed a 62-year-old female in no distress on 4 L nasal cannula Head: Atraumatic, normocephalic. HEENT:[Neck is supple.] [No neck masses.] [No thyromegaly.] [No JVD.] Chest: [Clear throughout, no crackles, no rhonchi, no wheezes.] Cardiac Exam: [Normal S1 and S2, no S3 gallop, no murmur.] Abdomen: [Soft, nontender, no megaly, no rebound, no guarding, normal bowel sounds.] Extremities: [No clubbing, no edema, no cyanosis.] Neurological Exam: [No focal neurologic deficit.] Alert oriented 3. Skin:Surgical incision to the lumbar spine, dressing CDI with hemovac present. - Labs CBC & Chem 7: 12/19/22 04:44 12/19/22 04:44 Labs: Abnormal Lab Results - Last 24 Hours (Table) 12/18/22 12/18/22 12/18/22 Range/Units 07:32 18:07 20:19 RBC 2.87 L (3.80-5.40) m/uL Hgb 9.5 L (11.4-16.0) gm/dL Hct 28.0 L (34.0-46.0) % Lymphocytes # (1.0-4.8) k/uL Chloride (98-107) mmol/L Creatinine (0.52-1.04) mg/dL Glucose (74-99) mg/dL POC Glucose (mg/dL) 122 H (70-110) mg/dL Calcium (8.4-10.2) mg/dL AST (14-36) U/L ALT (4-34) U/L Alkaline Phosphatase (38-126) U/L Total Protein (6.3-8.2) g/dL Albumin (3.5-5.0) g/dL Crossmatch See Detail 12/18/22 12/19/22 12/19/22 Range/Units 20:19 04:44 04:44 RBC 2.76 L (3.80-5.40) m/uL Hgb 9.0 L (11.4-16.0) gm/dL Hct 27.0 L (34.0-46.0) % Lymphocytes # 0.7 L (1.0-4.8) k/uL Chloride 110 H 111 H (98-107) mmol/L Creatinine 0.47 L (0.52-1.04) mg/dL Glucose 128 H 123 H (74-99) mg/dL POC Glucose (mg/dL) (70-110) mg/dL Calcium 6.6 L 7.1 L (8.4-10.2) mg/dL AST 120 H (14-36) U/L ALT 42 H (4-34) U/L Alkaline Phosphatase 151 H (38-126) U/L Total Protein 4.5 L (6.3-8.2) g/dL Albumin 2.4 L (3.5-5.0) g/dL Crossmatch Microbiology - Last 24 Hours (Table) 12/18/22 13:30 Gram Stain - Preliminary Back Wound Culture - Preliminary Presumptive Staph aureus 12/18/22 04:08 Gram Stain - Preliminary Back Wound Culture - Preliminary Presumptive Staph aureus 12/18/22 13:30 Gram Stain - Preliminary Back Wound Culture - Preliminary 12/17/22 23:00 Blood Culture - Preliminary Blood No Growth after 24 hours 12/17/22 23:15 Blood Culture - Preliminary Blood No Growth after 24 hours 12/18/22 13:30 Anaerobic Culture - Preliminary Back 12/18/22 13:30 Anaerobic Culture - Preliminary Back 12/15/22 22:50 Blood Culture Gram Stain - Preliminary Blood Blood Culture - Preliminary Alpha Hemolytic Streptococcus 12/18/22 04:08 Anaerobic Culture - Preliminary Back Assessment and Plan Assessment: Impression: Status post revision posterior lateral fusion L3 S1 with removal of hardware L4 S1, postoperative day #1 Altered mental status secondary to fever secondary to suspected abscess of the spine. Computed tomography scan reveals multilevel laminectomy defect which is obscured by the metal artifact. Subcutaneous fluid consistent with recent postsurgical changes and seroma and hematoma. Abscess not excluded. Currently on cefazolin. Blood culture positive for alpha hemolytic streptococcus. Recent, 12/02/2022, surgery for lumbar decompression and fusion L4 to S1 where she had developed hypotension and ventricular fibrillation arrest which was quickly aborted. She initially was intubated and on mechanical ventilator in the ICU and she subsequently required covered and was discharged on 12/09/2022. Completion of surgery was planned for a later date. Cardiac catheterization at that time revealed no significant progression of her coronary artery disease Coronary artery disease with previous stents Chronic tobacco dependence of greater than 40 years. Quit in October 2022 Hypertension Hyperlipidemia Obesity Hypothyroidism History of anxiety/depression History of bipolar disorder/panic disorder Recommendation: Continue present supportive care measures Continue antibiotics as per ID on the case presently on cefazolin, patient had alphahemolytic strep in the blood cultures, sensitive to all antibiotics except erythromycin, and Gram stain from wound cultures is suspicious for staph aureus Consider transferring the patient out of the ICU to a monitor bed if she remains hemodynamically stable throughout the day today. And not requiring norepinephrine. Continue IV fluids Continue DVT and GI prophylaxis Continue drain management as felt appropriate by surgery on the case. Encourage incentive spirometry. We'll continue to follow Time with Patient: Less than 30
[2022-12-19] MEDS: SODIUM CHLORIDE 0.9% 1,000 ML IV SCH ×3 (12:33→23:13)
[2022-12-19 15:12] LABS: Magnesium 2.3 mg/dL (1.6-2.3)
--- NOTE | 2022-12-19 15:45 | P.PN ---
Subjective Progress Note Date: 12/19/22 Principal diagnosis: Bacteremia and lumbar surgical site infection Patient is a 62-year-old female with multiple comorbidities including coronary artery disease hypertension hyperlipidemia MD history of chronic back pain in this patient who did have a history of multiple back surgeries patient was recently taken to the OR on November 24, 2022 for revision L3 to pelvis decompression and fusion the procedure was aborted due to V-fib event resulting in the crash closure, now presented to hospital with fever and mental status changes increasing pain and some drainage from the lumbar surgical site.Patient was taken to the OR on 12/18/2022 this patient who is status post revision posterior lateral fusion L3-S1 with removal of the hardware L4-S1 and OR cultures. On today's evaluation, that is 12/19/2022, the patient is afebrile, the patient denies having any chest pain or shortness breath or cough, the patient lower back pain is currently controlled. Denies having any nausea no vomiting and no diarrhea Objective - Vital Signs Vital signs: Vital Signs Temp 97.6 F 12/19/22 12:00 Pulse 55 L 12/19/22 12:00 Resp 14 12/19/22 12:00 BP 103/60 12/19/22 12:00 Pulse Ox 95 12/19/22 12:02 FiO2 95 12/18/22 20:00 Intake & Output 12/18/22 12/19/22 12/19/22 18:59 06:59 18:59 Intake Total 3104.04 2562.596 910.81 Output Total 1725 460 233 Balance 1379.04 2102.596 677.81 Weight 86.7 kg Intake: IV 2551 2550 900 0.9 @ KVO 100 Invasive Line 4 30 Sodium Chloride 0.9% 1, 125 1500 750 000 ml @ 125 mls/hr IV . Q8H [facility] Rx#:[id number] Sodium Chloride 0.9% 1, 1000 000 ml @ 999 mls/hr IV . Q1H1M [facility] Rx#:[id number] ceFAZolin 2 gm In Sodium 50 50 Chloride 0.9% 50 ml @ 100 mls/hr IVPB Q8HR [facility] Rx# :[id number] Intake, IV Titration 3.04 12.596 10.81 Amount Norepinephrine 4 mg In 3.04 12.596 10.81 Sodium Chloride 0.9% 250 ml @ 0.03 MCG/KG/MIN 8. 687 mls/hr IV .Q24H [facility] Rx#:[id number] Oral 240 Blood Product 310 Rc As-1 Unit 310 [id number] Output: Drainage 0 0 90 Left Lower Posterior Back 0 0 90 Urine 1575 460 143 Estimated Blood Loss 150 Other: Voiding Method Toilet Indwelling Catheter Indwelling Catheter # Voids 1 # Bowel Movements 0 0 ABP, PAP, CO, CI - Last Documented Arterial Blood Pressure 91/44 - Exam GENERAL DESCRIPTION: Middle-age female lying in bed in no distress RESPIRATORY SYSTEM: Unlabored breathing , decreased breath sounds at bases HEART: S1 S2 regular rate and rhythm , ABDOMEN: Soft , no tenderness EXTREMITIES: No edema feet - Labs CBC & Chem 7: 12/19/22 04:44 12/19/22 04:44 Labs: Abnormal Lab Results - Last 24 Hours (Table) 12/18/22 12/18/22 12/18/22 Range/Units 07:32 18:07 20:19 RBC 2.87 L (3.80-5.40) m/uL Hgb 9.5 L (11.4-16.0) gm/dL Hct 28.0 L (34.0-46.0) % Lymphocytes # (1.0-4.8) k/uL Chloride (98-107) mmol/L Creatinine (0.52-1.04) mg/dL Glucose (74-99) mg/dL POC Glucose (mg/dL) 122 H (70-110) mg/dL Calcium (8.4-10.2) mg/dL AST (14-36) U/L ALT (4-34) U/L Alkaline Phosphatase (38-126) U/L Total Protein (6.3-8.2) g/dL Albumin (3.5-5.0) g/dL Crossmatch See Detail 12/18/22 12/19/22 12/19/22 Range/Units 20:19 04:44 04:44 RBC 2.76 L (3.80-5.40) m/uL Hgb 9.0 L (11.4-16.0) gm/dL Hct 27.0 L (34.0-46.0) % Lymphocytes # 0.7 L (1.0-4.8) k/uL Chloride 110 H 111 H (98-107) mmol/L Creatinine 0.47 L (0.52-1.04) mg/dL Glucose 128 H 123 H (74-99) mg/dL POC Glucose (mg/dL) (70-110) mg/dL Calcium 6.6 L 7.1 L (8.4-10.2) mg/dL AST 120 H (14-36) U/L ALT 42 H (4-34) U/L Alkaline Phosphatase 151 H (38-126) U/L Total Protein 4.5 L (6.3-8.2) g/dL Albumin 2.4 L (3.5-5.0) g/dL Crossmatch Microbiology - Last 24 Hours (Table) 12/18/22 13:30 Gram Stain - Preliminary Back Wound Culture - Preliminary Presumptive Staph aureus 12/18/22 04:08 Gram Stain - Preliminary Back Wound Culture - Preliminary Presumptive Staph aureus 12/18/22 13:30 Gram Stain - Preliminary Back Wound Culture - Preliminary 12/17/22 23:00 Blood Culture - Preliminary Blood No Growth after 24 hours 12/17/22 23:15 Blood Culture - Preliminary Blood No Growth after 24 hours 12/18/22 13:30 Anaerobic Culture - Preliminary Back 12/18/22 13:30 Anaerobic Culture - Preliminary Back 12/15/22 22:50 Blood Culture Gram Stain - Preliminary Blood Blood Culture - Preliminary Alpha Hemolytic Streptococcus 12/18/22 04:08 Anaerobic Culture - Preliminary Back Assessment and Plan (1) Bacteremia Current Visit: Yes Status: Acute Code(s): R78.81 - BACTEREMIA SNOMED Code(s): 7399108 (2) Post op infection Current Visit: Yes Status: Acute Code(s): T81.40XA - INFECTION FOLLOWING A PROCEDURE, UNSPECIFIED, INIT SNOMED Code(s): 15959752 Plan: 1patient presented to hospital with sepsis in this patient with a recent lumbar spine surgery which was aborted because of V-fib and a crash closure with increasing pain to the lumbar spine along with drainage and did have abnormal CT concerning for possible abscess and now with blood culture positive for alphahemolytic streptococcus 2patient with multiple antibiotic allergies that would limit the number of antibiotics safe to use. 3patient is status post I&D of the lumbosacral spine incision and removal of t he hardware on 12/18/2022 with the OR cultures currently pending, initial culture from the back is growing staph aureus likely MSSA 4patient to continue with the cefazolin and monitor clinical course closely Time with Patient: Less than 30
--- NOTE | 2022-12-19 15:47 | P.PN ---
Subjective Progress Note Date: 12/18/22 Principal diagnosis: Bacteremia and lumbar surgical site infection Patient is a 62-year-old female with multiple comorbidities including coronary artery disease hypertension hyperlipidemia [place] history of chronic back pain in this patient who did have a history of multiple back surgeries patient was recently taken to the OR on November 24, 2022 for revision L3 to pelvis decompression and fusion the procedure was aborted due to V-fib event resulting in the crash closure, now presented to hospital with fever and mental status changes increasing pain and some drainage from the lumbar surgical site.Patient was taken to the OR this morning and the patient is status post revision posterior lateral fusion L3-S1 with removal of the hardware L4-S1 and OR cultures. On today's evaluation, that is 12/18/2022, the patient overall fever pattern has improved the patient is afebrile this morning patient is currently sleepy and recovering from anesthesia post procedure as she was unable to provide any history no vomiting or other changes reported by the nursing staff Objective - Vital Signs Vital signs: Vital Signs Temp 97.1 F L 12/18/22 10:49 Pulse 66 12/18/22 11:10 Resp 15 12/18/22 11:10 BP 81/38 12/18/22 11:10 Pulse Ox 97 12/18/22 11:10 FiO2 Intake & Output 12/17/22 12/18/22 12/18/22 18:59 06:59 18:59 Other: Voiding Method Bedside Commode Bedside Commode # Voids 3 3 1 - Exam GENERAL DESCRIPTION: Middle-age female lying in bed in no distress RESPIRATORY SYSTEM: Unlabored breathing , decreased breath sounds at bases HEART: S1 S2 regular rate and rhythm , ABDOMEN: Soft , no tenderness EXTREMITIES: No edema feet - Labs CBC & Chem 7: 12/19/22 04:44 12/19/22 04:44 Labs: Abnormal Lab Results - Last 24 Hours (Table) 12/17/22 12/17/22 12/18/22 Range/Units 05:25 18:37 04:29 WBC 13.6 H 12.65 H (3.8-10.6) k/uL RBC 3.47 L 2.89 L (3.80-5.40) m/uL Hgb 9.5 L (12.0-15.0) g/dL Hct 29.1 L (37.2-46.3) % MCV 100.4 H 100.7 H (80.0-100.0) fL MCH 32.9 H (27.0-32.0) pg Immature Gran # 0.06 H (0.00-0.04) X 10*3/uL Neutrophils # 11.3 H 10.45 H (1.3-7.7) k/uL Lymphocytes # (1.0-4.8) k/uL Potassium (3.5-5.5) mmol/L BUN 8.2 L (9.0-27.0) mg/dL BUN/Creatinine Ratio 10.25 L (12.00-20.00) Ratio Glucose (70-110) mg/dL Calcium 8.2 L (8.7-10.3) mg/dL AST 37 H (13-35) U/L Total Protein 5.7 L (6.2-8.2) g/dL Albumin 3.3 L (3.8-4.9) g/dL Albumin/Globulin Ratio 1.38 L (1.60-3.17) g/dL 12/18/22 12/18/22 12/18/22 Range/Units 04:29 07:32 07:32 WBC 11.3 H (3.8-10.6) k/uL RBC 2.87 L (3.80-5.40) m/uL Hgb 9.7 L D (12.0-15.0) g/dL Hct 28.8 L (37.2-46.3) % MCV 100.5 H (80.0-100.0) fL MCH (27.0-32.0) pg Immature Gran # (0.00-0.04) X 10*3/uL Neutrophils # 9.6 H (1.3-7.7) k/uL Lymphocytes # 0.8 L (1.0-4.8) k/uL Potassium 3.2 L 3.2 L (3.5-5.5) mmol/L BUN 8.4 L (9.0-27.0) mg/dL BUN/Creatinine Ratio 10.70 L (12.00-20.00) Ratio Glucose 117 H 125 H (70-110) mg/dL Calcium 7.7 L 7.4 L (8.7-10.3) mg/dL AST 52 H (13-35) U/L Total Protein 5.0 L (6.2-8.2) g/dL Albumin 2.6 L (3.8-4.9) g/dL Albumin/Globulin Ratio (1.60-3.17) g/dL Microbiology - Last 24 Hours (Table) 12/18/22 04:08 Anaerobic Culture - Preliminary Back 12/18/22 04:08 Wound Culture - Preliminary Back 12/15/22 22:50 Blood Culture Gram Stain - Preliminary Blood Blood Culture - Preliminary Alpha Hemolytic Streptococcus Assessment and Plan (1) Bacteremia Current Visit: Yes Status: Acute Code(s): R78.81 - BACTEREMIA SNOMED Code(s): 5427365 (2) Post op infection Current Visit: Yes Status: Acute Code(s): T81.40XA - INFECTION FOLLOWING A PROCEDURE, UNSPECIFIED, INIT SNOMED Code(s): 14385114 Plan: 1patient presented to hospital with sepsis in this patient with a recent lumbar spine surgery which was aborted because of V-fib and a crash closure with increasing pain to the lumbar spine along with drainage and did have abnormal CT concerning for possible abscess and now with blood culture positive for alphahemolytic streptococcus 2patient with multiple antibiotic allergies that would limit the number of antibiotics safe to use. 3patient is status post I&D of the lumbosacral spine incision and removal of the hardware on 12/18/2022 with the OR cultures currently pending, 4patient to continue with the cefazolin and will adjust antibiotic further on the basis of deep OR culture Time with Patient: Less than 30
[2022-12-19] MEDS ORDERED: SODIUM CHLORIDE 0.9% 500 ML 500 ML IV ONE (16:04)
[2022-12-19] MEDS: MIDODRINE 5 MG TAB PO SCH (16:39)
[2022-12-19] MEDS: HYDROmorphone 1 MG/ML 1 ML SYRINGE IVP PRN ×3 (16:54→23:16)
[2022-12-19] MEDS: HYDROcodone/APAP 10-325MG 1 EACH TAB PO PRN (19:23)
[2022-12-19] MEDS: CYCLOBENZAPRINE 10 MG TAB PO SCH (20:08)
[2022-12-19] MEDS: ATORVASTATIN 80 MG TAB PO SCH (20:08)
[2022-12-19] MEDS: OXYBUTYNIN 10 MG TAB.ER.24 PO SCH (20:08)
[2022-12-19] MEDS: DULoxetine HCL 60 MG CAPSULE.DR PO SCH (20:08)
[2022-12-19] MEDS: QUEtiapine 400 MG TAB PO SCH (20:08)
[2022-12-19] MEDS: METOPROLOL SUCCINATE (ER) 25 MG TAB.ER.24H PO SCH (20:08)
[2022-12-19] MEDS: AMITRIPTYLINE HCL 25 MG TAB PO SCH (20:08)
[2022-12-20] MEDS: HYDROcodone/APAP 10-325MG 1 EACH TAB PO PRN ×3 (02:57→19:58)
[2022-12-20] MEDS: HYDROmorphone 1 MG/ML 1 ML SYRINGE IVP PRN ×2 (03:34→21:00)
[2022-12-20] MEDS: LEVOTHYROXINE 125 MCG TAB PO SCH (06:35)
[2022-12-20] MEDS: MIDODRINE 5 MG TAB PO SCH ×3 (06:35→16:38)
[2022-12-20] MEDS: PANTOPRAZOLE 40 MG TABLET PO SCH (06:35)
[2022-12-20 07:23] LABS: HCT 28.5 % (34.0-46.0); HGB 9.3 gm/dL (11.4-16.0); Hypochromasia Slight; MCH 32.5 pg (25.0-35.0); MCHC 32.7 g/dL (31.0-37.0); MCV 99.4 fL (80.0-100.0); Macrocytosis Slight; Mean Platelet Volume 9.3; Platelet Count 304 k/uL (150-450); RBC 2.87 m/uL (3.80-5.40); RDW 14.9 % (11.5-15.5); WBC 5.4 k/uL (3.8-10.6)
[2022-12-20] MEDS: HYDROmorphone 0.5 MG/0.5 ML SYRINGE IVP PRN ×3 (07:40→17:21)
[2022-12-20 08:02] LABS: African American GFR (CKD) >90 (>60 ml/min/1.73 sqM); Anion Gap 7 mmol/L; Blood Urea Nitrogen 4 mg/dL (7-17); Calcium 7.4 mg/dL (8.4-10.2); Carbon Dioxide 21 mmol/L (22-30); Chloride 110 mmol/L (98-107); Glucose 90 mg/dL (74-99); Non-African American GFR(CKD) >90 (>60 ml/min/1.73 sqM); Potassium 3.9 mmol/L (3.5-5.1); Sodium 138 mmol/L (137-145)
[2022-12-20] MEDS: PREGABALIN 75 MG CAP PO SCH ×3 (08:38→19:58)
--- NOTE | 2022-12-20 12:25 | P.PN ---
Subjective Progress Note Date: 12/20/22 Principal diagnosis: status post incision and drainage with irrigation and debridement lumbar spine patient was examined today at bedside, she is resting comfortably in her hospit al bed. She states pain is currently controlled with medications. The also brace is at bedside, she has been utilizing when up and about. The drain is putting out a mild/moderate amount at this time. Urinary catheter remains in place at this time. Patient denies any headaches, lightheadedness, chest pain or shortness of breath. Objective - Vital Signs Vital signs: Vital Signs Temp 98.4 F 12/20/22 07:37 Pulse 60 12/20/22 11:34 Resp 18 12/20/22 11:34 BP 99/58 12/20/22 11:34 Pulse Ox 93 L 12/20/22 11:34 FiO2 95 12/18/22 20:00 Intake & Output 12/19/22 12/20/22 12/20/22 18:59 06:59 18:59 Intake Total 1660.81 Output Total 688 950 Balance 972.81 -950 Intake: IV 1650 0.9 @ KVO 100 Sodium Chloride 0.9% 1, 1500 000 ml @ 125 mls/hr IV . Q8H JOHNSON Rx#:[id number] ceFAZolin 2 gm In Sodium 50 Chloride 0.9% 50 ml @ 100 mls/hr IVPB Q8HR JOHNSON Rx# :[id number] Intake, IV Titration 10.81 Amount Norepinephrine 4 mg In 10.81 Sodium Chloride 0.9% 250 ml @ 0.03 MCG/KG/MIN 8. 687 mls/hr IV .Q24H JOHNSON Rx#:[id number] Output: Drainage 180 Left Lower Posterior Back 180 Urine 508 950 Other: Voiding Method Indwelling Catheter Indwelling Catheter Indwelling Catheter ABP, PAP, CO, CI - Last Documented Arterial Blood Pressure 91/44 - Exam Gen: AOx3, NAD VSS stable at this time Integument: Operative foam dressing is in good position and condition along with the drain spell and covering the entire incision at this time, no active drainage visualized. 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 Reflexes: 2/4 in all UE and LE Negative Charissa's bilaterally Negative Babinski bilaterally Clonus bilaterally - Labs CBC & Chem 7: 12/20/22 06:27 12/20/22 06:27 Labs: Abnormal Lab Results - Last 24 Hours (Table) 12/18/22 12/19/22 12/20/22 Range/Units 07:32 04:44 06:27 RBC 2.87 L (3.80-5.40) m/uL Hgb 9.3 L (11.4-16.0) gm/dL Hct 28.5 L (34.0-46.0) % Chloride 111 H (98-107) mmol/L Carbon Dioxide (22-30) mmol/L BUN (7-17) mg/dL Creatinine 0.47 L (0.52-1.04) mg/dL Glucose 123 H (74-99) mg/dL Calcium 7.1 L (8.4-10.2) mg/dL AST 120 H (14-36) U/L ALT 42 H (4-34) U/L Alkaline Phosphatase 151 H (38-126) U/L Total Protein 4.5 L (6.3-8.2) g/dL Albumin 2.4 L (3.5-5.0) g/dL Crossmatch See Detail 12/20/22 Range/Units 06:27 RBC (3.80-5.40) m/uL Hgb (11.4-16.0) gm/dL Hct (34.0-46.0) % Chloride 110 H (98-107) mmol/L Carbon Dioxide 21 L (22-30) mmol/L BUN 4 L (7-17) mg/dL Creatinine (0.52-1.04) mg/dL Glucose (74-99) mg/dL Calcium 7.4 L (8.4-10.2) mg/dL AST (14-36) U/L ALT (4-34) U/L Alkaline Phosphatase (38-126) U/L Total Protein (6.3-8.2) g/dL Albumin (3.5-5.0) g/dL Crossmatch Microbiology - Last 24 Hours (Table) 12/18/22 13:30 Gram Stain - Preliminary Back Wound Culture - Preliminary Presumptive Staph aureus 12/18/22 13:30 Gram Stain - Final Back Wound Culture - Final Staphylococcus aureus 12/18/22 04:08 Gram Stain - Final Back Wound Culture - Final Staphylococcus aureus 12/17/22 23:00 Blood Culture - Preliminary Blood No Growth after 48 hours 12/17/22 23:15 Blood Culture - Preliminary Blood No Growth after 48 hours Assessment and Plan Assessment: Postoperative day #2 status post incision and drainage with the lumbar spine, L3-L4 decompressive laminectomy Plan: Pain control, continue use current medications at this time Discontinue urinary catheter today Utilize an LSO brace when up and ambulating, utilize walker No bending, twisting, lifting DVT prophylaxis, continue use of compression stockings and [employer] Discussed the patient that she may shower tomorrow, I advise showering directly over the [place] and current dressings. After shower I plan to change all surg ical dressings and possibly remove the drain Other medical specialty recommendations appreciated Encourage incentive spirometer We'll continue to follow during inpatient stay Time with Patient: Less than 30
--- NOTE | 2022-12-20 13:06 | P.PN ---
Subjective Progress Note Date: 12/20/22 This is a 62-year-old female patient with a known history of coronary artery disease with previous stent placement, hyperlipidemia, hypertension, urinary incontinence, hypothyroidism, chronic tobacco dependence of nearly 50 years, chronic back pain. She had been admitted on 12/02/2022 for an elective L4-S1 decompression and fusion. During the procedure however she had developed hypotension, ventricular fibrillation and required fluid resuscitation and epinephrine and norepinephrine then the surgical site was urgently closed without completion and she was intubated on the mechanical ventilator and we had seen the patient in the intensive care unit. She did undergo cardiac catheterization that admission and was found to have no significant disease in the proximal RCA that had previously been stented. There was a branch of the RCA that was 60% to 70% narrowed. Major diagonal has 60-70% narrowing. LAD was patent. Left main and circumflex are free of significant disease. No further progression of her previous CAD. She subsequently recovered and was discharged home on 12/09/2022. She still had dilia intact. She did have some oozing of her surgical site that she states she was placing pads on and the drainage has stopped the last couple of days. She presented here to the emergency room last evening with a fever of 103 and altered mental status reported by her mom and brother. Chest x-ray revealed no acute cardiopulmonary process. A computed tomography scan can of the spine revealed multilevel laminectomy defects which is obscured by the metal artifact. Subcutaneous fluid consistent with recent postsurgical changes and seroma and hematoma. Abscess could not be excluded. White count 15.7. Hemoglobin 12.4. Sodium 135. Potassium 3.7. Bicarb 28. BUN 9. Creatinine 0.85. Glucose 123. C-reactive protein 17.4. AST 24. ALT 20. Urinalysis clean. She had been initiated on ceftriaxone and subsequently cefazolin. Infectious disease has been consulted. She is now on daptomycin and cefepime. She is seen today in consultation for possible return to the OR and preop clearance. She currently denies any shortness of breath, cough or congestion. She states she has not smoked since October 2022. She is not on home oxygen. She is currently maintaining O2 saturation in the 90s on room air. She remains febrile with a temperature of 102.3. No tachycardia. No tachypnea. 0.9% normal saline at 125 ML's per hour. The patient is seen today 12/17/2022 in follow-up on the regular medical floor. She is currently resting. The comfortably in bed. Awake and alert in no acute distress. She is maintaining O2 saturations in the 90s on room air. Current temperature 100.8. A pressure stable. Preliminary blood culture reveals Streptococcus species. Labs pending today. Antibiotics changed to cefazolin per ID services. 0.9% normal saline at 125 an hour. The patient is seen today 12/18/2022 in follow-up on the regular medical floor. Awake and alert in no acute distress. Resting comfortably in bed. Denies any worsening shortness of breath, cough or congestion. Maintaining good O2 saturations in the 90s on room air. Plan is for incision and drainage with irrigation and debridement of the lumbar spine today. Blood cultures positive for alpha hemolytic streptococcus. Wound cultures are pending. White count 11.3. Hemoglobin 9.7. Sodium 137. Potassium 3.2. Bicarb 25. BUN 8. Creatinine 0.66. Glucose 125. She is continued on cefazolin. Normal saline at 125 ML's per hour. Reevaluated today on 12/19/2022, patient is status post revision of posterior lateral fusion L3 S1 with removal of hardware L4-S1. Patient had a relatively uneventful surgery yesterday, her blood pressure was soft, hence she was admitted to the ICU, required norepinephrine initially in the OR and in the ICU, Patient is presently on 4 L nasal cannula her IV fluid is 0.9 normal saline at 1 25 mL/h, presently off norepinephrine. Patient has a JVP drain in place, remains on cefazolin. Being followed by infectious disease. WBC count is 7.6 hemoglobin is 9 lites are normal renal profile is normal, slightly elevated liver enzymes were noted. Pain seems to be under good control. Patient has no specific complaints The patient is seen today 12/20/2022 in follow-up on the selective care unit. Postoperative day #2 of insulin and drainage of the lumbar spine, L3-L4 decompressive laminectomy She is resting comfortably in bed. Awake and alert in no acute distress. Maintaining good O2 saturations in the 90s on room air. She's been afebrile. Hemodynamically stable. Her pain is well controlled. Dressing to her spine incision is clean dry well approximated. ORTIZ drain remains in place. She is status post 1 unit of packed red blood cells this admission. Current hemoglobin 9.3 wound culture positive for methicillin sensitive Staphylococcus aureus. She remains on cefazolin. White count 5.4. Sodium 138. Potassium 3.9. Bicarb 21. BUN 4. Creatinine 0.56. Objective - Vital Signs Vital signs: Vital Signs Temp 98.4 F 12/20/22 07:37 Pulse 60 12/20/22 11:34 Resp 18 12/20/22 11:34 BP 99/58 12/20/22 11:34 Pulse Ox 93 L 12/20/22 11:34 FiO2 95 12/18/22 20:00 Intake & Output 12/19/22 12/20/22 12/20/22 18:59 06:59 18:59 Intake Total 1660.81 Output Total 688 950 Balance 972.81 -950 Intake: IV 1650 0.9 @ KVO 100 Sodium Chloride 0.9% 1, 1500 000 ml @ 125 mls/hr IV . Q8H JOHNSON Rx#:[id number] ceFAZolin 2 gm In Sodium 50 Chloride 0.9% 50 ml @ 100 mls/hr IVPB Q8HR JOHNSON Rx# :[id number] Intake, IV Titration 10.81 Amount Norepinephrine 4 mg In 10.81 Sodium Chloride 0.9% 250 ml @ 0.03 MCG/KG/MIN 8. 687 mls/hr IV .Q24H JOHNSON Rx#:[id number] Output: Drainage 180 Left Lower Posterior Back 180 Urine 508 950 Other: Voiding Method Indwelling Catheter Indwelling Catheter Indwelling Catheter ABP, PAP, CO, CI - Last Documented Arterial Blood Pressure 91/44 - Exam GENERAL EXAM: Alert, 62-year-old female, on room air, resting in bed, comfortable in no apparent distress. HEAD: Normocephalic. EYES: Normal reaction of pupils, equal size. NOSE: Clear with pink turbinates. THROAT: No erythema or exudates. NECK: No masses, no JVD. CHEST: No chest wall deformity. LUNGS: Equal air entry with no crackles, wheeze, rhonchi or dullness. CVS: S1 and S2 normal with no audible murmur, regular rhythm. ABDOMEN: No hepatosplenomegaly, normal bowel sounds, no guarding or rigidity. SPINE: Dressing to the surgical site on her spine is dry and intact. ORTIZ drain remains in place.. SKIN: No rashes CENTRAL NERVOUS SYSTEM: No focal deficits, tone is normal in all 4 extremities. EXTREMITIES: There is no peripheral edema. No clubbing, no cyanosis. Peripheral pulses are intact. - Labs CBC & Chem 7: 12/20/22 06:27 12/20/22 06:27 Labs: Abnormal Lab Results - Last 24 Hours (Table) 12/18/22 12/19/22 12/20/22 Range/Units 07:32 04:44 06:27 RBC 2.87 L (3.80-5.40) m/uL Hgb 9.3 L (11.4-16.0) gm/dL Hct 28.5 L (34.0-46.0) % Chloride 111 H (98-107) mmol/L Carbon Dioxide (22-30) mmol/L BUN (7-17) mg/dL Creatinine 0.47 L (0.52-1.04) mg/dL Glucose 123 H (74-99) mg/dL Calcium 7.1 L (8.4-10.2) mg/dL AST 120 H (14-36) U/L ALT 42 H (4-34) U/L Alkaline Phosphatase 151 H (38-126) U/L Total Protein 4.5 L (6.3-8.2) g/dL Albumin 2.4 L (3.5-5.0) g/dL Crossmatch See Detail 12/20/22 Range/Units 06:27 RBC (3.80-5.40) m/uL Hgb (11.4-16.0) gm/dL Hct (34.0-46.0) % Chloride 110 H (98-107) mmol/L Carbon Dioxide 21 L (22-30) mmol/L BUN 4 L (7-17) mg/dL Creatinine (0.52-1.04) mg/dL Glucose (74-99) mg/dL Calcium 7.4 L (8.4-10.2) mg/dL AST (14-36) U/L ALT (4-34) U/L Alkaline Phosphatase (38-126) U/L Total Protein (6.3-8.2) g/dL Albumin (3.5-5.0) g/dL Crossmatch Microbiology - Last 24 Hours (Table) 12/18/22 13:30 Gram Stain - Preliminary Back Wound Culture - Preliminary Presumptive Staph aureus 12/18/22 13:30 Gram Stain - Final Back Wound Culture - Final Staphylococcus aureus 12/18/22 04:08 Gram Stain - Final Back Wound Culture - Final Staphylococcus aureus 12/17/22 23:00 Blood Culture - Preliminary Blood No Growth after 48 hours 12/17/22 23:15 Blood Culture - Preliminary Blood No Growth after 48 hours Assessment and Plan Assessment: Altered mental status secondary to fever secondary to suspected abscess of the spine. Computed tomography scan reveals multilevel laminectomy defect which is obscured by the metal artifact. Subcutaneous fluid consistent with recent postsurgical changes and seroma and hematoma. Abscess not excluded. Currently on cefazolin. Blood culture positive for alpha hemolytic streptococcus. Wound cultures positive for MSSA. She did undergo incision and drainage with i rrigation and debridement of the lumbar spine 12/18/2022. Recent, 12/02/2022, surgery for lumbar decompression and fusion L4 to S1 where she had developed hypotension and ventricular fibrillation arrest which was quickly aborted. She initially was intubated and on mechanical ventilator in the ICU and she subsequently required covered and was discharged on 12/09/2022. Completion of surgery was planned for a later date. Cardiac catheterization at that time revealed no significant progression of her coronary artery disease Coronary artery disease with previous stents Chronic tobacco dependence of greater than 40 years. Quit in October 2022 Hypertension Hyperlipidemia Obesity Hypothyroidism History of anxiety/depression History of bipolar disorder/panic disorder Plan: The patient was seen and evaluated Labs and medications reviewed Stable and on room air Educated regarding incentive spirometer Antibiotics per infectious disease Home once cleared by surgery/medicine We will see as needed I have personally seen and examined the patient, performed the documentation and the assessment and plan as written. Number of minutes spent on the visit: 10.
[2022-12-20] MEDS: SODIUM CHLORIDE 0.9% 1,000 ML IV SCH (13:51)
--- NOTE | 2022-12-20 14:07 | P.PN ---
Subjective Progress Note Date: 12/20/22 Patient is a 62-year-old female with recent cardiac arrest on 12/02/22 while under going lumbar revision fusionwhich was partially completed secondary to development of intraoperative ventricular arrhythmia, CAD status post stenting 6, hypertension, and hyperlipidemia who presetned to the emergency department due to worsening lower back pain and fever. In the emergency department when underwent and extensive evaluation. CT thoracic and lumbar spine demonstrated a subcutaneous fluid collection consistent with recent postsurgical changes seroma/hematoma, abscess not excluded at this time. Labaratory analysis ws remarkable for a WBCs of 15.7, ESR of 51, an elevated CRP of 17.4. She was diagnosuied with sepsis due to a temp of 103. She was started on IV antibiotics. We were consulted for medical management. ID, orthopedics,critical care, and cardiology following. On 12/18 she underwent Incision and drainage with irrigation and debridement lumbar spine. She required vasopressors overnight postoperatively and a short ICU stay. Patient seen and examined at bedside. She is feeling very anxious. She denies chest pain, sob, n, v, diarrhea, constipation. Back pain is manageable with current medications. Vital signs reviewed General: nontoxic, no distress, appears at stated age Cardiovascular: S1S2 reg, no murmur, positive posterior tibial pulse bilateral, Lungs: CTA bilateral, no rhonchi, no rales , no accessory muscle use Abdominal: soft, nontender to palpation, no guarding, no appreciable organomegaly, Hemovac drain in place with scant bloody drainage, dressing in place. Ext: no gross muscle atrophy, no edema, no contractures Neuro: CN II-XI grossly intact, no focal neuro deficits Psych: Alert, oriented, appropriate affect Assessment: Staph aureus Post-op infection,POD # 2 s/p Incision and drainage with irrigati on and debridement lumbar spine Alpha hemolytic strep bacteremia Septic shock due to above Acute blood loss anemia, anticipated outcome of surgery Hyperchloremic metabolic acidosis Obesity with BMI 36.1 Hx of V fib arrest CAD status post stenting 6 Imaging: no additional imaging Data Review: Labs reviewed and remarkable for CRP 12.4 (imrpoved from 17.4), HgB 9.3 (9 yesterday), CL 110, CO2 21 -Repeat blood cx negative X 48 hours Plan: - await cultures to finalize, if truly strep bacteremia and Staph, will need further evaluation for causes of strep bacteremia. - ID note reviewed: cefazolin given multiple allergies - Critical care not reviewed: will see as needed - spine note reviewed: d/C MASHA bullard brachrissie, may shower tomorrow, possible drain removal tomorrow - cardio note reviewed and will sign off. - Cefazolin 2 grams every 8 hours day # 4 - Midodrine 10 mg TID due to low blood pressures, BP last 24 hours showed a systolic of 93-123 - follow repeat blood cultures - repeat CBC in AM to monitor infection/ anemia - stop IVF as patient is eating and drinking, repeat BMP in AM to monitor hypercholremia and acidosis DVT prophylaxis: per ortho spine, anticipate starting lovenox in AM once drain removed. This dictation was prepared using [employer] voice recognition software. Though every attempt is made to correct errors during during dictation some may still exist. Objective - Vital Signs Vital signs: Vital Signs Temp 98.4 F 12/20/22 07:37 Pulse 60 12/20/22 11:34 Resp 18 12/20/22 11:34 BP 99/58 12/20/22 11:34 Pulse Ox 93 L 12/20/22 11:34 FiO2 95 12/18/22 20:00 Intake & Output 12/19/22 12/20/22 12/20/22 18:59 06:59 18:59 Intake Total 1660.81 Output Total 688 950 900 Balance 972.81 -950 -900 Intake: IV 1650 0.9 @ KVO 100 Sodium Chloride 0.9% 1, 1500 000 ml @ 125 mls/hr IV . Q8H JOHNSON Rx#:[id number] ceFAZolin 2 gm In Sodium 50 Chloride 0.9% 50 ml @ 100 mls/hr IVPB Q8HR JOHNSON Rx# :[id number] Intake, IV Titration 10.81 Amount Norepinephrine 4 mg In 10.81 Sodium Chloride 0.9% 250 ml @ 0.03 MCG/KG/MIN 8. 687 mls/hr IV .Q24H JOHNSON Rx#:[id number] Output: Drainage 180 Left Lower Posterior Back 180 Urine 508 950 900 Other: Voiding Method Indwelling Catheter Indwelling Catheter Indwelling Catheter ABP, PAP, CO, CI - Last Documented Arterial Blood Pressure 91/44 - Labs CBC & Chem 7: 12/20/22 06:27 12/20/22 06:27 Labs: Abnormal Lab Results - Last 24 Hours (Table) 12/18/22 12/19/22 12/20/22 Range/Units 07:32 04:44 06:27 RBC 2.87 L (3.80-5.40) m/uL Hgb 9.3 L (11.4-16.0) gm/dL Hct 28.5 L (34.0-46.0) % Chloride 111 H (98-107) mmol/L Carbon Dioxide (22-30) mmol/L BUN (7-17) mg/dL Creatinine 0.47 L (0.52-1.04) mg/dL Glucose 123 H (74-99) mg/dL Calcium 7.1 L (8.4-10.2) mg/dL AST 120 H (14-36) U/L ALT 42 H (4-34) U/L Alkaline Phosphatase 151 H (38-126) U/L C-Reactive Protein (<1.0) mg/dL Total Protein 4.5 L (6.3-8.2) g/dL Albumin 2.4 L (3.5-5.0) g/dL Crossmatch See Detail 12/20/22 12/20/22 Range/Units 06:27 06:27 RBC (3.80-5.40) m/uL Hgb (11.4-16.0) gm/dL Hct (34.0-46.0) % Chloride 110 H (98-107) mmol/L Carbon Dioxide 21 L (22-30) mmol/L BUN 4 L (7-17) mg/dL Creatinine (0.52-1.04) mg/dL Glucose (74-99) mg/dL Calcium 7.4 L (8.4-10.2) mg/dL AST (14-36) U/L ALT (4-34) U/L Alkaline Phosphatase (38-126) U/L C-Reactive Protein 12.4 H (<1.0) mg/dL Total Protein (6.3-8.2) g/dL Albumin (3.5-5.0) g/dL Crossmatch Microbiology - Last 24 Hours (Table) 12/18/22 13:30 Gram Stain - Preliminary Back Wound Culture - Preliminary Presumptive Staph aureus 12/18/22 13:30 Gram Stain - Final Back Wound Culture - Final Staphylococcus aureus 12/18/22 04:08 Gram Stain - Final Back Wound Culture - Final Staphylococcus aureus 12/17/22 23:00 Blood Culture - Preliminary Blood No Growth after 48 hours 12/17/22 23:15 Blood Culture - Preliminary Blood No Growth after 48 hours
[2022-12-20] MEDS: METOPROLOL SUCCINATE (ER) 25 MG TAB.ER.24H PO SCH (19:58)
[2022-12-20] MEDS: OXYBUTYNIN 10 MG TAB.ER.24 PO SCH (19:58)
[2022-12-20] MEDS: CYCLOBENZAPRINE 10 MG TAB PO SCH (19:58)
[2022-12-20] MEDS: QUEtiapine 400 MG TAB PO SCH (19:58)
[2022-12-20] MEDS: ATORVASTATIN 80 MG TAB PO SCH (19:58)
[2022-12-20] MEDS: DULoxetine HCL 60 MG CAPSULE.DR PO SCH (19:58)
[2022-12-20] MEDS: AMITRIPTYLINE HCL 25 MG TAB PO SCH (19:58)
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
[2022-12-21] MEDS: HYDROcodone/APAP 10-325MG 1 EACH TAB PO PRN ×2 (05:32→15:27)
[2022-12-21] MEDS: MIDODRINE 5 MG TAB PO SCH ×3 (06:27→17:42)
[2022-12-21] MEDS: LEVOTHYROXINE 125 MCG TAB PO SCH (06:27)
[2022-12-21] MEDS: PANTOPRAZOLE 40 MG TABLET PO SCH (06:27)
[2022-12-21] MEDS: HYDROmorphone 0.5 MG/0.5 ML SYRINGE IVP PRN ×4 (07:25→20:32)
[2022-12-21 08:09] LABS: HGB 9.3 gm/dL (11.4-16.0); Hypochromasia Slight; MCH 32.4 pg (25.0-35.0); MCHC 33.3 g/dL (31.0-37.0); MCV 97.3 fL (80.0-100.0); Mean Platelet Volume 8.7; Platelet Count 341 k/uL (150-450); RBC 2.88 m/uL (3.80-5.40); RDW 14.8 % (11.5-15.5); WBC 5.7 k/uL (3.8-10.6)
[2022-12-21] MEDS: PREGABALIN 75 MG CAP PO SCH ×3 (08:16→22:18)
[2022-12-21 08:19] LABS: African American GFR (CKD) >90 (>60 ml/min/1.73 sqM); Anion Gap 4 mmol/L; Blood Urea Nitrogen 3 mg/dL (7-17); Calcium 7.8 mg/dL (8.4-10.2); Carbon Dioxide 26 mmol/L (22-30); Chloride 109 mmol/L (98-107); Glucose 81 mg/dL (74-99); Non-African American GFR(CKD) >90 (>60 ml/min/1.73 sqM); Potassium 3.6 mmol/L (3.5-5.1); Sodium 139 mmol/L (137-145)
[2022-12-21] MEDS: polyethylene glycoL 3350 17 GM POWD.PACK PO SCH (10:03)
--- NOTE | 2022-12-21 10:14 | P.PN ---
Subjective Progress Note Date: 12/21/22 Patient is a 62-year-old female with recent cardiac arrest on 12/02/22 while under going lumbar revision fusion which was partially completed secondary to development of intraoperative ventricular arrhythmia, CAD status post stenting 6, hypertension, and hyperlipidemia who presented to the emergency department due to worsening lower back pain and fever. In the emergency department when underwent and extensive evaluation. CT thoracic and lumbar spine demonstrated a subcutaneous fluid collection consistent with recent postsurgical changes seroma/hematoma, abscess not excluded at this time. Laboratory analysis was remarkable for a WBCs of 15.7, ESR of 51, an elevated CRP of 17.4. She was diagnosed with sepsis due to a temp of 103. She was started on IV antibiotics. We were consulted for medical management. ID, orthopedics,critical care, and cardiology following. On 12/18 she underwent Incision and drainage with irrigation and debridement lumbar spine. She required vasopressors overnight postoperatively and a short ICU stay. She was transitioned to the step down unit. Patient seen and examined at bedside. No chest pain, or shortness of breath. No nausea. Lethargic after getting Dilaudid. Vital signs reviewed General: nontoxic, no distress, appears at stated age Cardiovascular: S1S2 irreg, no murmur, positive posterior tibial pulse bilateral, Lungs: Decreased bilateral, no rhonchi, no rales , no accessory muscle use Abdominal: soft, nontender to palpation, no guarding, no appreciable organomegaly Ext: no gross muscle atrophy, no edema, no contractures Neuro: CN II-XI grossly intact, no focal neuro deficits Psych: Lethargic, oriented, appropriate affect Assessment: MSSA Post-op infection,POD # 3 s/p Incision and drainage with irrigation and debridement lumbar spine Alpha hemolytic strep bacteremia Septic shock due to above Acute blood loss anemia, anticipated outcome of surgery Obesity with BMI 36.1 Hx of V fib arrest CAD status post stenting 6 Hyperchloremic metabolic acidosis, resolved Imaging: None new Data Review: Laboratory analysis was reviewed from 12/21, hemoglobin 9.3, hematocrit 28, sodium 139, potassium 3.6, chloride 109, carbon dioxide is 26, BUN 3, creatinine 0.59 Plan: - await cultures to finalize, if truly strep bacteremia and Staph, will need further evaluation for causes of strep bacteremia. - ID note reviewed: cefazolin given multiple allergies , will need PICC line - Await new spine recs - cardio and pulm signed off - Cefazolin 2 grams every 8 hours day # 5 - Midodrine 10 mg TID due to low blood pressures, BP last 24 hours showed a systolic of 96-119 - Repeat blood cultures negative to date - repeat CBC in AM to monitor infection/ anemia DVT prophylaxis: per orthospine, anticipate starting lovenox in AM once drain removed. This dictation was prepared using [employer] voice recognition software. Though every attempt is made to correct errors during during dictation some may still exist. Objective - Vital Signs Vital signs: Vital Signs Temp 98.1 F 12/21/22 07:36 Pulse 53 L 12/21/22 09:41 Resp 18 12/21/22 09:41 BP 106/70 12/21/22 07:36 Pulse Ox 93 L 12/21/22 07:36 FiO2 95 12/18/22 20:00 Intake & Output 12/20/22 12/21/22 12/21/22 18:59 06:59 18:59 Intake Total 600 Output Total 1025 50 Balance -425 -50 Intake: Oral 600 Output: Drainage 125 50 Left Lower Posterior Back 125 50 Urine 900 Other: Voiding Method Indwelling Catheter Bedside Commode Bedside Commode # Voids 1 ABP, PAP, CO, CI - Last Documented Arterial Blood Pressure 91/44 - Labs CBC & Chem 7: 12/21/22 07:10 12/21/22 07:10 Labs: Abnormal Lab Results - Last 24 Hours (Table) 12/20/22 12/20/22 12/21/22 Range/Units 06:27 06:27 07:10 RBC 2.88 L (3.80-5.40) m/uL Hgb 9.3 L (11.4-16.0) gm/dL Hct 28.0 L (34.0-46.0) % ESR 63 H (0-20) mm/hr Chloride (98-107) mmol/L BUN (7-17) mg/dL Calcium (8.4-10.2) mg/dL C-Reactive Protein 12.4 H (<1.0) mg/dL 12/21/22 Range/Units 07:10 RBC (3.80-5.40) m/uL Hgb (11.4-16.0) gm/dL Hct (34.0-46.0) % ESR (0-20) mm/hr Chloride 109 H (98-107) mmol/L BUN 3 L (7-17) mg/dL Calcium 7.8 L (8.4-10.2) mg/dL C-Reactive Protein (<1.0) mg/dL Microbiology - Last 24 Hours (Table) 12/17/22 23:00 Blood Culture - Preliminary Blood No Growth after 72 hours 12/17/22 23:15 Blood Culture - Preliminary Blood No Growth after 72 hours 12/15/22 23:05 Blood Culture Gram Stain - Final Blood Blood Culture - Final Nutritionally Variant Strep 12/15/22 22:50 Blood Culture Gram Stain - Final Blood Blood Culture - Final Alpha Hemolytic Streptococcus 12/18/22 13:30 Anaerobic Culture - Preliminary Back 12/18/22 13:30 Anaerobic Culture - Preliminary Back 12/18/22 04:08 Anaerobic Culture - Preliminary Back 12/18/22 13:30 Gram Stain - Preliminary Back Wound Culture - Preliminary Presumptive Staph aureus 12/18/22 13:30 Gram Stain - Final Back Wound Culture - Final Staphylococcus aureus 12/18/22 04:08 Gram Stain - Final Back Wound Culture - Final Staphylococcus aureus
--- NOTE | 2022-12-21 12:20 | P.PN ---
Subjective Progress Note Date: 12/21/22 Principal diagnosis: status post incision and drainage with irrigation and debridement lumbar spine patient was examined today at bedside, she is resting comfortably in her hospit al bed. She states pain is currently controlled with medications. The also brace is at bedside, she has been utilizing when up and about. Patient denies any headaches, lightheadedness, chest pain or shortness of breath. Objective - Vital Signs Vital signs: Vital Signs Temp 98.1 F 12/21/22 07:36 Pulse 61 12/21/22 11:51 Resp 18 12/21/22 11:51 BP 112/70 12/21/22 11:51 Pulse Ox 94 L 12/21/22 11:51 FiO2 95 12/18/22 20:00 Intake & Output 12/20/22 12/21/22 12/21/22 18:59 06:59 18:59 Intake Total 600 Output Total 1025 50 Balance -425 -50 Intake: Oral 600 Output: Drainage 125 50 Left Lower Posterior Back 125 50 Urine 900 Other: Voiding Method Indwelling Catheter Bedside Commode Bedside Commode # Voids 1 ABP, PAP, CO, CI - Last Documented Arterial Blood Pressure 91/44 - Exam Gen: AOx3, NAD VSS stable at this time Integument: Dressing was removed at bedside, drain was also removed. Sutures remain in good position Palpation: Mild tenderness with palpation to the lumbar paraspinal region ROM: Range of motion all major muscle groups of the bilateral upper and lower extremity Sensory Exam: Senory exam to light touch is intact C5-T1 Senosry exam to light touch is intact L2-S1] Motor: 4/5 strength appreciated in the bilateral lower extremities with hip flexion, knee extension, knee flexion, dorsiflexion, EHL, FHL 5/5 strength appreciated in the bilateral upper extremities with shoulder elevation, shoulder abduction, elbow flexion, wrist extension, wrist flexion, clinical assessment manager Reflexes: 2/4 in all UE and LE Negative Charissa's bilaterally Negative Babinski bilaterally Clonus bilaterally - Labs CBC & Chem 7: 12/21/22 07:10 12/21/22 07:10 Labs: Abnormal Lab Results - Last 24 Hours (Table) 12/20/22 12/20/22 12/21/22 Range/Units 06:27 06:27 07:10 RBC 2.88 L (3.80-5.40) m/uL Hgb 9.3 L (11.4-16.0) gm/dL Hct 28.0 L (34.0-46.0) % ESR 63 H (0-20) mm/hr Chloride (98-107) mmol/L BUN (7-17) mg/dL Calcium (8.4-10.2) mg/dL C-Reactive Protein 12.4 H (<1.0) mg/dL 12/21/22 Range/Units 07:10 RBC (3.80-5.40) m/uL Hgb (11.4-16.0) gm/dL Hct (34.0-46.0) % ESR (0-20) mm/hr Chloride 109 H (98-107) mmol/L BUN 3 L (7-17) mg/dL Calcium 7.8 L (8.4-10.2) mg/dL C-Reactive Protein (<1.0) mg/dL Microbiology - Last 24 Hours (Table) 12/18/22 13:30 Gram Stain - Final Back Wound Culture - Final Staphylococcus aureus 12/17/22 23:00 Blood Culture - Preliminary Blood No Growth after 72 hours 12/17/22 23:15 Blood Culture - Preliminary Blood No Growth after 72 hours 12/15/22 23:05 Blood Culture Gram Stain - Final Blood Blood Culture - Final Nutritionally Variant Strep 12/15/22 22:50 Blood Culture Gram Stain - Final Blood Blood Culture - Final Alpha Hemolytic Streptococcus 12/18/22 13:30 Anaerobic Culture - Preliminary Back 12/18/22 13:30 Anaerobic Culture - Preliminary Back 12/18/22 04:08 Anaerobic Culture - Preliminary Back 12/18/22 13:30 Gram Stain - Final Back Wound Culture - Final Staphylococcus aureus 12/18/22 04:08 Gram Stain - Final Back Wound Culture - Final Staphylococcus aureus Assessment and Plan Assessment: Postoperative day #3 status post incision and drainage with the lumbar spine, L3-L4 decompressive laminectomy Plan: Pain control, continue use current medications at this time Utilize an LSO brace when up and ambulating, utilize walker No bending, twisting, lifting DVT prophylaxis, discuss with internal medicine, they will begin and subcu medication on 12/22/2022 Dressing change was done at bedside today, a new Opteform dressing along with Ioban was placed. Alcohol was used to cleanse the skin prior to placing the bandage. We'll leave in place for the next 1-2 days. Other medical specialty recommendations appreciated Encourage incentive spirometer We'll continue to follow during inpatient stay Time with Patient: Less than 30
[2022-12-21] MEDS: CYCLOBENZAPRINE 10 MG TAB PO SCH (20:33)
[2022-12-21] MEDS: METOPROLOL SUCCINATE (ER) 25 MG TAB.ER.24H PO SCH (20:33)
[2022-12-21] MEDS: ATORVASTATIN 80 MG TAB PO SCH (20:33)
[2022-12-21] MEDS: DULoxetine HCL 60 MG CAPSULE.DR PO SCH (20:34)
[2022-12-21] MEDS: QUEtiapine 400 MG TAB PO SCH (22:18)
[2022-12-21] MEDS: OXYBUTYNIN 10 MG TAB.ER.24 PO SCH (22:18)
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
[2022-12-22] MEDS: HYDROmorphone 0.5 MG/0.5 ML SYRINGE IVP PRN ×6 (02:10→22:38)
[2022-12-22] MEDS: PANTOPRAZOLE 40 MG TABLET PO SCH (05:58)
[2022-12-22] MEDS: MIDODRINE 5 MG TAB PO SCH ×3 (05:58→16:47)
[2022-12-22] MEDS: LEVOTHYROXINE 125 MCG TAB PO SCH (05:58)
--- NOTE | 2022-12-22 08:19 | P.PN ---
Subjective Progress Note Date: 12/22/22 Principal diagnosis: 1. s/p Revision posteriolateral fusion L3-S1 with Removal of hardware L4-S1 2. Sepsis 3. Post-op infection Patient seen and examined this morning. Patient was resting comfortably in bed. She is complaining of low back pain with activity. Patient reports her pain is managed on current regimen. Patient has been up independently in room, tolerating activity well. Nursing staff informed journalists and other writers that patient refuses to wear her LSO brace when up and about. Surgical incision is clean dry and intact . Patient is to receive a PICC line today for home antibiotic therapy. Patient is cleared from orthopedic standpoint for discharge home when medically stable. Patient has been afebrile, denies nausea/vomiting, or chest pain. Objective - Vital Signs Vital signs: Vital Signs Temp 98.3 F 12/22/22 02:00 Pulse 63 12/22/22 02:00 Resp 17 12/22/22 02:00 BP 114/69 12/22/22 02:00 Pulse Ox 92 L 12/22/22 02:00 FiO2 95 12/18/22 20:00 Intake & Output 12/21/22 12/22/22 12/22/22 18:59 06:59 18:59 Intake Total 480 Balance 480 Intake: Oral 480 Other: Voiding Method Bedside Commode # Voids 1 2 ABP, PAP, CO, CI - Last Documented Arterial Blood Pressure 91/44 - Exam General: The patient is awake and alert, in no acute distress Skin: Skin is warm and dry with no obvious rashes or lesions. Surgical incision to the lumbar spine, dressing CDI. Eye: Pupils are equal, round and reactive to light, extra-ocular movements are intact; there is normal conjunctiva bilaterally. Neck: The neck is supple, there is no tenderness and ROM intact. Cardiovascular: There is a regular rate and rhythm. No murmur, rub or gallop is appreciated. Respiratory: Lungs are clear to auscultation, respirations are non-labored, jessica ath sounds are equal. Gastrointestinal: Soft, non-distended, non-tender abdomen. Back: There is no tenderness to palpation in the midline, paralumbar, parathoracic or buttocks region. There is no obvious deformity. Musculoskeletal: ROM limited secondary to pain and stiffness from surgical pro cedure. Shoulder abduction 5/5, elbow flexors 5/5, wrist dorsiflexors 5/5. finger abductor 5/5, orange picking supervisor 5/5, hip flexor 4/5, knee flexor 4/5, ankle dorsiflexor 4/5, ankle plantarflexion 4/5 and extensor hallucis 4/5. Neurological: CN 2-12 intact. There are no obvious motor or sensory deficits. Movement and coordination equal and intact. Sensory exam to light touch intact C5-T1 and intact from L2-S1. Reflexes 2/4 in bilateral upper and lower extremities. Negative Hoffmans, babinski, and clonus signs. Psychiatric: Cooperative, appropriate mood & affect, normal judgment. - Labs CBC & Chem 7: 12/21/22 07:10 12/21/22 07:10 Labs: Abnormal Lab Results - Last 24 Hours (Table) 12/21/22 12/21/22 Range/Units 07:10 07:10 RBC 2.88 L (3.80-5.40) m/uL Hgb 9.3 L (11.4-16.0) gm/dL Hct 28.0 L (34.0-46.0) % Chloride 109 H (98-107) mmol/L BUN 3 L (7-17) mg/dL Calcium 7.8 L (8.4-10.2) mg/dL Microbiology - Last 24 Hours (Table) 12/17/22 23:00 Blood Culture - Preliminary Blood No Growth after 96 hours 12/17/22 23:15 Blood Culture - Preliminary Blood No Growth after 96 hours 12/18/22 13:30 Gram Stain - Final Back Wound Culture - Final Staphylococcus aureus Assessment and Plan Assessment: Postop day 4: Incision and drainage with irrigation and debridement with lumbar laminectomy and decompression 1. s/p Revision posteriolateral fusion L3-S1 with Removal of hardware L4-S1 2. Sepsis 3. Post-op infection Plan: -Appreciate pharmacy consultant and team management. -Patient to receive PICC line today for home antibiotic therapy -Activity: Ambulate QID, OOB all meals, up and about, limit lifting bending twisting to less than 5 lbs. Use walker or cane if needed for stability. -Daily PT/OT, increase ambulation strength and balance. -Brace when up and about, not needed in bed or chair -Pain control: Adequate at this time -Meds: reviewed -GI ppx: senna, Miralax -DVT PPX: Heparin -Hygiene: Shower today. Maintain dressing clean and dry. Meticulous cleaning after BMs away from the incision site -Encourage IS 10x/hr -Dispo: Home with homecare when medically stable. I reviewed and discussed this case with my attending Dr. Nova, whom has reviewed this chart and films and is in agreement with assessment and plan of care as outlined above. I have personally seen and examined the patient, performed the documentation and the assessment and plan as written. Number of minutes spent on the visit: 15m.
[2022-12-22] MEDS: PREGABALIN 75 MG CAP PO SCH ×3 (08:26→21:31)
[2022-12-22] MEDS: HYDROcodone/APAP 10-325MG 1 EACH TAB PO PRN ×2 (08:26→16:47)
[2022-12-22] MEDS: ENOXAPARIN 40 MG/0.4 ML SYRINGE SQ SCH (08:58)
[2022-12-22] MEDS: polyethylene glycoL 3350 17 GM POWD.PACK PO SCH (09:32)
[2022-12-22 10:01] LABS: INR 1.1 (<1.2); Prothrombin Time 11.1 sec (9.0-12.0)
[2022-12-22 10:23] LABS: ALT 19 U/L (4-34); AST 36 U/L (14-36); African American GFR (CKD) >90 (>60 ml/min/1.73 sqM); Albumin 2.4 g/dL (3.5-5.0); Alkaline Phosphatase 116 U/L (38-126); Anion Gap 4 mmol/L; Blood Urea Nitrogen 3 mg/dL (7-17); Calcium 7.8 mg/dL (8.4-10.2); Carbon Dioxide 29 mmol/L (22-30); Chloride 105 mmol/L (98-107); Globulin 2.3 g/dL; Glucose 89 mg/dL (74-99); Non-African American GFR(CKD) >90 (>60 ml/min/1.73 sqM); Potassium 3.7 mmol/L (3.5-5.1); Sodium 138 mmol/L (137-145); Total Bilirubin 0.3 mg/dL (0.2-1.3); Total Protein 4.7 g/dL (6.3-8.2)
[2022-12-22 10:24] LABS: HCT 27.9 % (34.0-46.0); HGB 9.5 gm/dL (11.4-16.0); MCH 32.6 pg (25.0-35.0); MCHC 33.9 g/dL (31.0-37.0); MCV 96.2 fL (80.0-100.0); Mean Platelet Volume 8.5; Platelet Count 395 k/uL (150-450); RDW 14.9 % (11.5-15.5); WBC 6.3 k/uL (3.8-10.6)
--- NOTE | 2022-12-22 11:42 | P.PN ---
Subjective Progress Note Date: 12/22/22 Patient is a 62-year-old female with recent cardiac arrest on 12/02/22 while under going lumbar revision fusion which was partially completed secondary to development of intraoperative ventricular arrhythmia, CAD status post stenting 6, hypertension, and hyperlipidemia who presented to the emergency department due to worsening lower back pain and fever. In the emergency department when underwent and extensive evaluation. CT thoracic and lumbar spine demonstrated a subcutaneous fluid collection consistent with recent postsurgical changes seroma/hematoma, abscess not excluded at this time. Laboratory analysis was remarkable for a WBCs of 15.7, ESR of 51, an elevated CRP of 17.4. She was diagnosed with sepsis due to a temp of 103. She was started on IV antibiotics. We were consulted for medical management. ID, orthopedics,critical care, and cardiology following. On 12/18 she underwent Incision and drainage with irrigation and debridement lumbar spine. She required vasopressors overnight postoperatively and a short ICU stay. She was transitioned to the step down unit and then medical floor. Her cultures came back with a strep bactermia and MSSA wound infection. Patient seen and examined at bedside. She is feeling frustrated about this whole process. She is aware she will need a PICC line for long-term IV antibiotics. She states she is having bowel movements daily. She denies any chest pain, shortness breath, nausea, vomiting. Vital signs reviewed General: nontoxic, no distress, appears at stated age Cardiovascular: S1S2 reg, no murmur, positive posterior tibial pulse bilateral, Lungs: CTA bilateral, no rhonchi, no rales , no accessory muscle use Abdominal: soft, nontender to palpation, no guarding, no appreciable organomegaly Ext: no gross muscle atrophy, no edema, no contractures Neuro: CN II-XI grossly intact, no focal neuro deficits Psych: Alert, oriented, appropriate affect Assessment: MSSA Post-op infection,POD # 4 s/p Incision and drainage with irrigation and debridement lumbar spine Alpha hemolytic strep bacteremia Transaminitis, suspect reactive Acute blood loss anemia, anticipated outcome of surgery Obesity with BMI 36.1 Hx of V fib arrest CAD status post stenting 6 Hyperchloremic metabolic acidosis, resolved Septic shock, resolved Imaging: Data Review: Laboratory analysis from today reviewed hemoglobin 9.5 (stable from 9.3, creatinine 0.65, liver enzymes have normalized. Plan: - await cultures to finalize, if truly strep bacteremia and Staph, will need further evaluation for causes of strep bacteremia. - ID note reviewed: cefazolin given multiple allergies , PICC line today - Spine note reviewed: conitnue with spine precuations - cardio and pulm signed off - Cefazolin 2 grams every 8 hours day # 6 - Midodrine 10 mg TID due to low blood pressures, BP last 24 hours showed a systolic of 88-124 - Repeat blood cultures negative to date DVT prophylaxis: per orthospine, anticipate starting lovenox in AM once drain removed. This dictation was prepared using [employer] voice recognition software. Though every attempt is made to correct errors during during dictation some may still exist. Objective - Vital Signs Vital signs: Vital Signs Temp 98.1 F 12/22/22 07:10 Pulse 56 L 12/22/22 07:10 Resp 18 12/22/22 07:10 BP 112/73 12/22/22 07:10 Pulse Ox 94 L 12/22/22 09:38 FiO2 95 12/18/22 20:00 Intake & Output 12/21/22 12/22/22 12/22/22 18:59 06:59 18:59 Intake Total 480 Balance 480 Intake: Oral 480 Other: Voiding Method Bedside Commode # Voids 1 2 1 ABP, PAP, CO, CI - Last Documented Arterial Blood Pressure 91/44 - Labs CBC & Chem 7: 12/22/22 09:24 12/22/22 09:24 Labs: Abnormal Lab Results - Last 24 Hours (Table) 12/22/22 12/22/22 Range/Units 09:24 09:24 RBC 2.90 L (3.80-5.40) m/uL Hgb 9.5 L (11.4-16.0) gm/dL Hct 27.9 L (34.0-46.0) % BUN 3 L (7-17) mg/dL Calcium 7.8 L (8.4-10.2) mg/dL Total Protein 4.7 L (6.3-8.2) g/dL Albumin 2.4 L (3.5-5.0) g/dL Microbiology - Last 24 Hours (Table) 12/18/22 13:30 Anaerobic Culture - Final Back 12/18/22 13:30 Anaerobic Culture - Final Back 12/18/22 04:08 Anaerobic Culture - Final Back 12/17/22 23:00 Blood Culture - Preliminary Blood No Growth after 96 hours 12/17/22 23:15 Blood Culture - Preliminary Blood No Growth after 96 hours 12/18/22 13:30 Gram Stain - Final Back Wound Culture - Final Staphylococcus aureus
[2022-12-22] MEDS: ALPRAZolam 0.25 MG TAB PO PRN (14:44)
--- NOTE | 2022-12-22 15:20 | IR ---
PICC LINE PLACEMENT: HISTORY: Infection requiring long-term antibiotic therapy PROCEDURE: Ultrasound and fluoroscopic guidance of PICC line placement. COMPLICATIONS: None ANESTHESIA: 1. 1% Lidocaine locally. FINDINGS/TECHNIQUE: The procedure was explained to the patient. The risks, complications, benefits and alternatives were discussed and any questions were answered. Informed consent was obtained. The patient was placed supine on the fluoroscopic table and prepped and draped in the usual sterile fash ion. Utilizing a 21 gauge needle and sonographic and fluoroscopic guidance, access in the left basi lic vein was achieved and there is placement of a 0.018 guidewire. The vein is patent. A 4-F sheath was placed over the guidewire. The guidewire and dilator were removed and a 4-F. PICC line was plac ed through the sheath with the tip at the level of the SVC. The sheath was removed, the catheter was flushed and sutured into position. The patient was stable throughout the procedure and remained sta ble upon discharge from the Department of Radiology. The vein puncture was patent under ultrasound. A montano scale image was obtained to document patency of the vein punctured. All elements of the maximal barrier technique were utilized. FLUOROSCOPY TIME: DAP 0.243Gy cm2 IMPRESSION: Successful PICC line placement under ultrasound and fluoroscopic guidance.
[2022-12-22] MEDS: AMITRIPTYLINE HCL 25 MG TAB PO SCH (21:32)
[2022-12-22] MEDS: OXYBUTYNIN 10 MG TAB.ER.24 PO SCH (21:32)
[2022-12-22] MEDS: DULoxetine HCL 60 MG CAPSULE.DR PO SCH (21:32)
[2022-12-22] MEDS: METOPROLOL SUCCINATE (ER) 25 MG TAB.ER.24H PO SCH (21:32)
[2022-12-22] MEDS: CYCLOBENZAPRINE 10 MG TAB PO SCH (21:32)
[2022-12-22] MEDS: QUEtiapine 400 MG TAB PO SCH (21:32)
[2022-12-22] MEDS: ATORVASTATIN 80 MG TAB PO SCH (21:32)
--- NOTE | 2022-12-22 23:58 | P.PN ---
Subjective Progress Note Date: 12/22/22 Principal diagnosis: Bacteremia and lumbar surgical site infection Patient is a 62-year-old female with multiple comorbidities including coronary artery disease hypertension hyperlipidemia [place] history of chronic back pain in this patient who did have a history of multiple back surgeries patient was recently taken to the OR on November 24, 2022 for revision L3 to pelvis decompression and fusion the procedure was aborted due to V-fib event resulting in the crash closure, now presented to hospital with fever and mental status changes increasing pain and some drainage from the lumbar surgical site.Patient was taken to the OR this morning and the patient is status post revision posterior lateral fusion L3-S1 with removal of the hardware L4-S1 and OR cultures. On today's evaluation, that is 12/22/2022, the patient continues to be afebrile, the patient is breathing comfortably on room air the patient denies any chest pain shortness of breath or cough pain to the back area is somewhat controlled with the pain medication, the patient denies nausea no vomiting and no diarrhea Objective - Vital Signs Vital signs: Vital Signs Temp 98.1 F 12/22/22 07:10 Pulse 56 L 12/22/22 07:10 Resp 18 12/22/22 08:25 BP 112/73 12/22/22 07:10 Pulse Ox 94 L 12/22/22 09:38 FiO2 95 12/18/22 20:00 Intake & Output 12/21/22 12/22/22 12/22/22 18:59 06:59 18:59 Intake Total 480 Balance 480 Intake: Oral 480 Other: Voiding Method Bedside Commode Toilet # Voids 1 2 1 ABP, PAP, CO, CI - Last Documented Arterial Blood Pressure 91/44 - Exam GENERAL DESCRIPTION: Middle-age female lying in bed in no distress RESPIRATORY SYSTEM: Unlabored breathing , decreased breath sounds at bases HEART: S1 S2 regular rate and rhythm , ABDOMEN: Soft , no tenderness EXTREMITIES: No edema feet - Labs CBC & Chem 7: 12/22/22 09:24 12/22/22 09:24 Labs: Abnormal Lab Results - Last 24 Hours (Table) 12/22/22 12/22/22 Range/Units 09:24 09:24 RBC 2.90 L (3.80-5.40) m/uL Hgb 9.5 L (11.4-16.0) gm/dL Hct 27.9 L (34.0-46.0) % BUN 3 L (7-17) mg/dL Calcium 7.8 L (8.4-10.2) mg/dL Total Protein 4.7 L (6.3-8.2) g/dL Albumin 2.4 L (3.5-5.0) g/dL Microbiology - Last 24 Hours (Table) 12/18/22 13:30 Anaerobic Culture - Final Back 12/18/22 13:30 Anaerobic Culture - Final Back 12/18/22 04:08 Anaerobic Culture - Final Back 12/17/22 23:00 Blood Culture - Preliminary Blood No Growth after 96 hours 12/17/22 23:15 Blood Culture - Preliminary Blood No Growth after 96 hours 12/18/22 13:30 Gram Stain - Final Back Wound Culture - Final Staphylococcus aureus Assessment and Plan (1) Bacteremia Current Visit: Yes Status: Acute Code(s): R78.81 - BACTEREMIA SNOMED Code(s): 3623697 (2) Post op infection Current Visit: Yes Status: Acute Code(s): T81.40XA - INFECTION FOLLOWING A PROCEDURE, UNSPECIFIED, INIT SNOMED Code(s): 51827762 Plan: 1patient presented to hospital with sepsis in this patient with a recent lumbar spine surgery which was aborted because of V-fib and a crash closure with increasing pain to the lumbar spine along with drainage and did have abnormal CT concerning for possible abscess and now with blood culture positive for alphahemolytic streptococcus 2patient is status post I&D of the lumbosacral spine incision and removal of the hardware on 12/18/2022 with the OR cultures currently growing MSSA 3patient to continue with the cefazolin , plan is for a PICC line and the 6 weeks of IV antibiotic therapy on discharge and close outpatient follow-up Time with Patient: Less than 30
[2022-12-23] MEDS: HYDROcodone/APAP 10-325MG 1 EACH TAB PO PRN ×4 (00:48→19:56)
[2022-12-23] MEDS: HYDROmorphone 0.5 MG/0.5 ML SYRINGE IVP PRN ×3 (01:47→11:18)
--- NOTE | 2022-12-23 07:07 | P.OP ---
Date of Procedure: 12/18/22 Preoperative Diagnosis: 1. Wound dehiscense with lumbar infection 2. SIRS criteria 3. Complex medical history Postoperative Diagnosis: 1. Wound dehiscense with lumbar infection 2. SIRS criteria 3. Complex medical history Procedure(s) Performed: 1. Incision and drainage with irrigation and debridment Lumbar spine skin, muscle, soft tissue and bone [id number] cm using the following: -Kinfe to freshen skin edges and remove necrotic tissues -Rongure and curette to remove necrotic and infective tissue 2. L3-4 bilateral laminectomy, partial medial facetectomy and foraminotomy (82251) Implants: MagnatOs Anesthesia: GETA Surgeon: N[employer] Nova Animal Feeder #1: Reji Means Estimated Blood Loss (ml): 150 IV fluids (ml): 2,000 Urine output (ml): 1,000 Pathology: other (x2 lumbar wound) Condition: stable Disposition: PACU Indications for Procedure: Adeline Christiansen is a 62-year-old female presenting for evaluation of wound drainage with pain fever chills. It was my pleasure to have seen and examined Adeline. In our visit today we have had a chance to go over subjective complaints, physical examination findings and treatments including the natural course history without intervention and various interventional options. The patients imaging demonstrates seroma likely on computed tomography scan status post lumbar surgery. On physical exam, Adeline demonstrates erythematous draining lumbar wound. I have explained to the patient that as their condition progresses it will cause further neurological deficits and eventual paralysis. Based on the patients imaging, physical exam, and the rapid progression and disabling nature of their symptoms, at this time I recommend surgery in the form or a: Incision and drainage with irrigation and debridement lumbar spine. I discussed the risk and benefits of this procedure at length with Adeline. The patient agreed to considered pursuing the procedure abovementioned. Prior to surgery, she should follow up with her PCP (Cardio, ID, IM etc) for clearance. Questions were invited and answered, and the patient wishes to proceed as outlined below. Currently, I am recommendin. Incision and drainage with irrigation and debridement lumbar spine Description of Procedure: The patient was seen and examined in the preoperative area. All preoperative protocols were followed. Informed consent was obtained risks and benefits of th e procedure were discussed at length. Risks including bleeding infection damage to the surrounding tissue and risk of reoperation were discussed with the patient. Risk of anesthesia up to and including was a discussed with the patient. These are outlined in the risk review. They were willing to accept these risks and all of the risks of surgery. The patient was given a weight- based dose of antibiotics in the form of and so from the floor. The patient was seen and evaluated by the anesthesia team who deemed them fit for surgery. The site was marked, the patient was willing to proceed with the procedure. The patient was transferred to the operative suite by the Department of anesthesia. They were then drifted off to sleep by the department anesthesia and [anesthesia type] was performed. The patient tolerated this well. [Reaves catheter was placed by nursing staff, atraumatically]. Once confirmation of lines and ventilation the patient was transferred to a [prone Shree table very carefully]. All bony prominences including wrists, elbows, axilla, chest, hips, and thighs, and feet were padded very well. Special attention was paid to the genitalia and these were padded accordingly. SCDs were placed on bilateral lower extremities and were connected. Arms were well padded and placed [on arm boards up and out in the 90/90 position]. Once in position, again we confirmed good ventilation capabilities and that lines were running appropriately. The patient's lumbarspine was then exposed. 1010s were placed outlining the incision site. Standard alcohol was used to clean the incision site and allowed to dry. C-arm was used to biomark the patient and confirm level for incision which was marked with a skin marker. Operative briefing was performed with all teams and everyone in agreement to proceed. The patient was then prepped and draped in a normal sterile fashion. Timeout was then performed and all parties were in agreement with the procedure to be performed. skin incision was then made over the previously incised area dilia removed prior once through the skin there is a large flush of purulent fluid which was removed and cultured. The wound was then reopened down to bone through skin and soft tissue muscle. These areas were debrided using curettes and rongeurs. The previous hardware was identified posterior lateral gutters were cleaned of any graft material. Phlegmon was removed from the surrounding areas in the areas was debrided using Kerrison rongeurs as well as curettes. Thorough debridement was performed once this was completed a bilateral laminectomy was able to be performed at L3-L4 using a high-speed bur and Kerrison rongeurs. This allowed for decompression at this level. Patient remained stable. The wound was then copiously irrigated first with 3 L of normal sterile saline followed by a Betadine solution while debriding the area. 3 L of Ancef irrigation was then passed through the wound followed by Irricept. 3 L of gentamicin was then passed through the wound followed by another 3 L of normal sterile saline. Thorough irrigation had been completed as well as debridement during this time. Once debridement and irrigation had completed a new synthetic graft was placed in the posterior lateral gutters. The skin edges were freshened using a knife. The fascial edges were also freshened. A deep drain was placed. Antibiotic beads, stimulan, were placed deep in the wound. A complex layered closure was then performed first in the deep fascia with #1 PDS this was followed by a running unidirectional strata fix PDS. O PDS was then placed in the deep subcu tissue. 2-0 PDS then placed in superficial subQ tissue and skin was closed with interrupted 2-0 nylon suture. The drain was secured with a stitch and had good suction. The wound edges approximated very well. The wound was then cleaned and dressed sterily with 4x4, drain sponge, optifoam and Ioband. The patient was transferred back to their hospital bed atraumatically. [Drain continued to hold suction and were in good position]. Patient was then awakened and extubated by the department of anesthesia having tolerated the procedure very well with no complications. They were transferred to the postoperative care unit in stable condition.
[2022-12-23] MEDS: LEVOTHYROXINE 125 MCG TAB PO SCH (07:08)
[2022-12-23] MEDS: MIDODRINE 5 MG TAB PO SCH ×3 (07:09→16:48)
[2022-12-23] MEDS: PANTOPRAZOLE 40 MG TABLET PO SCH (07:09)
--- NOTE | 2022-12-23 07:58 | P.PN ---
Subjective Progress Note Date: 12/23/22 Principal diagnosis: 1. s/p Revision posteriolateral fusion L3-S1 with Removal of hardware L4-S1 2. Sepsis 3. Post-op infection Patient seen and examined this morning. Patient was resting comfortably in bed. Patient reports her pain is managed on current regimen. Patient has been up independently in room, tolerating activity well. She continues to deny any numbness or tingling to bilateral lower extremities. Surgical incision is clean dry and intact. Patient received PICC line to left upper extremity. Patient is cleared from orthopedic standpoint for discharge home when medically stable. Patient has been afebrile, denies nausea/vomiting, or chest pain. Objective - Vital Signs Vital signs: Vital Signs Temp 98.2 F 12/23/22 02:00 Pulse 61 12/23/22 02:00 Resp 15 12/23/22 02:00 BP 129/81 12/23/22 02:00 Pulse Ox 91 L 12/23/22 02:00 FiO2 95 12/18/22 20:00 Intake & Output 12/22/22 12/23/22 12/23/22 18:59 06:59 18:59 Other: Voiding Method Toilet Toilet # Voids 2 3 ABP, PAP, CO, CI - Last Documented Arterial Blood Pressure 91/44 - Exam General: The patient is awake and alert, in no acute distress Skin: Skin is warm and dry with no obvious rashes or lesions. Surgical incision to the lumbar spine, dressing CDI. PICC line present to the left upper extremity. Eye: Pupils are equal, round and reactive to light, extra-ocular movements are intact; there is normal conjunctiva bilaterally. Neck: The neck is supple, there is no tenderness and ROM intact. Cardiovascular: There is a regular rate and rhythm. No murmur, rub or gallop is appreciated. Respiratory: Lungs are clear to auscultation, respirations are non-labored, breath sounds are equal. Gastrointestinal: Soft, non-distended, non-tender abdomen. Back: There is no tenderness to palpation in the midline, paralumbar, parathoracic or buttocks region. There is no obvious deformity. Musculoskeletal: ROM limited secondary to pain and stiffness from surgical procedure. Shoulder abduction 5/5, elbow flexors 5/5, wrist dorsiflexors 5/5. finger abductor 5/5, back digger operator 5/5, hip flexor 4/5, knee flexor 4/5, ankle dorsiflexor 4/5, ankle plantarflexion 4/5 and extensor hallucis 4/5. Neurological: CN 2-12 intact. There are no obvious motor or sensory deficits. Movement and coordination equal and intact. Sensory exam to light touch intact C5-T1 and intact from L2-S1. Reflexes 2/4 in bilateral upper and lower extremities. Negative Hoffmans, babinski, and clonus signs. Psychiatric: Cooperative, appropriate mood & affect, normal judgment. - Labs CBC & Chem 7: 12/22/22 09:24 12/22/22 09:24 Labs: Abnormal Lab Results - Last 24 Hours (Table) 12/22/22 12/22/22 Range/Units 09:24 09:24 RBC 2.90 L (3.80-5.40) m/uL Hgb 9.5 L (11.4-16.0) gm/dL Hct 27.9 L (34.0-46.0) % BUN 3 L (7-17) mg/dL Calcium 7.8 L (8.4-10.2) mg/dL Total Protein 4.7 L (6.3-8.2) g/dL Albumin 2.4 L (3.5-5.0) g/dL Microbiology - Last 24 Hours (Table) 12/17/22 23:00 Blood Culture - Preliminary Blood No Growth after 120 hours 12/17/22 23:15 Blood Culture - Preliminary Blood No Growth after 120 hours 12/18/22 13:30 Anaerobic Culture - Final Back 12/18/22 13:30 Anaerobic Culture - Final Back 12/18/22 04:08 Anaerobic Culture - Final Back Assessment and Plan Assessment: Postop day 5: Incision and drainage with irrigation and debridement with lumbar laminectomy and decompression 1. s/p Revision posteriolateral fusion L3-S1 with Removal of hardware L4-S1 2. Sepsis 3. Post-op infection Plan: -Appreciate custom decorating consultant and team management. -Continue to follow with ID, IV antibiotics. -Activity: Ambulate QID, OOB all meals, up and about, limit lifting bending twisting to less than 5 lbs. Use walker or cane if needed for stability. -Daily PT/OT, increase ambulation strength and balance. -Brace when up and about, not needed in bed or chair -Pain control: Adequate at this time -Meds: reviewed -GI ppx: senna, Miralax -DVT PPX: Heparin -Hygiene: Shower today. Maintain dressing clean and dry. Meticulous cleaning after BMs away from the incision site -Encourage IS 10x/hr -Dispo: Home with homecare when medically stable. I reviewed and discussed this case with my attending Dr. Nova, whom has reviewed this chart and films and is in agreement with assessment and plan of care as outlined above. I have personally seen and examined the patient, performed the documentation and the assessment and plan as written. Number of minutes spent on the visit: 15m.
[2022-12-23] MEDS: polyethylene glycoL 3350 17 GM POWD.PACK PO SCH (08:37)
[2022-12-23] MEDS: ENOXAPARIN 40 MG/0.4 ML SYRINGE SQ SCH (08:38)
[2022-12-23] MEDS: PREGABALIN 75 MG CAP PO SCH ×3 (08:38→19:57)
[2022-12-23 10:52] LABS: HCT 28.4 % (37.2-46.3); HGB 8.7 g/dL (12.0-15.0); MCH 30.7 pg (27.0-32.0); MCHC 30.6 g/dL (32.0-37.0); MCV 100.4 fL (80.0-97.0); Mean Platelet Volume 10.8 fL (9.5-12.2); NRBC Per 100 WBC 0 /100 WBCS (0.0-0.0); Platelet Count 348 X 10*3/uL (140-440); RBC 2.83 X 10*6/uL (4.10-5.20); RDW 15.2 % (11.5-14.5); WBC 6.35 X 10*3/uL (4.50-10.00)
[2022-12-23 11:39] VITALS: BMI 36.1
[2022-12-23 11:39] LABS: BUN/Creat Ratio 6.5 Ratio (12.00-20.00); Blood Urea Nitrogen 4.4 mg/dL (9.0-27.0); Carbon Dioxide 30.1 mmol/L (20.0-27.5); Non-African American GFR(CKD) 92.3 (60.0-200.0); Potassium 3.6 mmol/L (3.5-5.5)
--- NOTE | 2022-12-23 11:48 | P.DS ---
Providers Date of admission: 12/16/22 02:04 Expected date of discharge: 12/23/22 Attending physician: Nima Nova DO Consults: 12/16/22 02:03 Consult Physician Routine Consulting Provider: Aftab Hurtado Consult Reason/Comments: Sepsis, post op infection Do you want consulting provider notified?: Already Contacted Consult Physician Routine Consulting Provider: Sukh Reyes Consult Reason/Comments: sepsis, post op infection Do you want consulting provider notified?: Yes, Notify in am 12/16/22 10:02 Consult Physician Routine Consulting Provider: Vasyl Benjamin Consult Reason/Comments: Possible surgical clearance Do you want consulting provider notified?: Yes Primary care physician: Nathanael Nogueira MD Hospital Course: Date of admission: 12/16/2022 Date of discharge: 12/23/2022 Admission diagnosis: 1. Wound dehiscense with lumbar infection 2. SIRS criteria 3. Complex medical history Discharge diagnosis: [Same] Attending physician: Dr. Nova Surgical procedures: 1. Incision and drainage with irrigation and debridment Lumbar spine skin, muscle, soft tissue and bone [id number] cm using the following: -Kinfe to freshen skin edges and remove necrotic tissues -Rongure and curette to remove necrotic and infective tissue 2. L3-4 bilateral laminectomy, partial medial facetectomy and foraminotomy Brief history: Patient is a 62-year-old female with a history of wound dehiscence with lumbar infection. At this point patient has failed conservative treatment measures and has opted to proceed with a elective incision drainage with irrigation and debridement lumbar spine, skin, muscle, soft tissue and bone; L3-4 bilateral laminectomy, partial medial facetectomy and foraminotomy. Hospital course: Details of patient's surgery can be found in operative report. Patient tolerated the procedure well and was subsequently transported to orthopedic floor. Patient's orthopeidc and medical care was provided daily. Patient had daily laboratory tests performed for evaluation of overall blood counts. Patient had daily physical therapy to include strengthening range of motion as well as education with walker ambulation. Patient was treated with Lovenox; Plavix for their postoperative DVT prophylaxis during their inpatient stay. Patient was noted to have a relatively uneventful postoperative course. Patient reported satisfactory pain control with oral pain medications by postoperative day 5. Patient showed satisfactory progress with physical therapy. Patient moved steadily through the program and had no difficulty meeting the goals by postoperative day 5. Given patient's otherwise satisfactory course and having met physical therapy goals, plan is to discharge patient to rehab on postoperative day 5. Discharge condition/disposition: Patient will be discharged to rehab in stable condition. Discharge medications: Instructions are given on resumption of patient's normal daily medications per primary care recommendation, in addition patient will be prescribed Gobler; Flexeril; Lyrica; senna; cefazolin. Spine Discharge and Recovery Instructions Date of Surgery: 12/18/2022 Diagnosis: 1. Wound dehiscense with lumbar infection 2. SIRS criteria 3. Complex medical history Procedure(s) Performed: 1. Incision and drainage with irrigation and debridment Lumbar spine skin, muscle, soft tissue and bone [id number] cm using the following: -Kinfe to freshen skin edges and remove necrotic tissues -Rongure and curette to remove necrotic and infective tissue 2. L3-4 bilateral laminectomy, partial medial facetectomy and foraminotomy Medications: See medication list All medication refills should be obtained through your primary care doctor or your clinic spine surgeon. Please discuss prescription refills at your follow up appointment. Do not call the hospital for medication refills. Dressing: Leave your dressing in place for a total of 5 days post operatively. Then you may remove your dressing and leave open to air. Keep the area clean and if not able to keep area clean, then cover with sterile gauze and tape. Showering: You may shower 3 days after your procedure allowing soap and water to run over incision. Do not scrub. Do not soak. Blot dry. Follow up: Please confirm a follow up appointment with your surgeon 3 weeks post operatively. Please make an appointment to follow up with your PCP in 1-2 weeks after surgery for evaluation 3 phase, 3-week plan POST OP WEEKS 1-3 1. Lifting/carrying/pushing/pulling limited to less than 5 pounds. 2. Do not sit for longer than 15 minutes at one time. Get up and walk around. Prolonged sitting is NOT advised. If you lay down, see if you can tolerate laying down on you front (belly side) 3. Walk for periods of 15 minutes = 1 mile but no longer; do it multiple times times each day. 4. Ice your low back after activity. POST OP WEEKS 3-6 1. Lifting limited to less than 20 pounds. 2. Do not sit for longer than 30 minutes at a time. Frequently change positions. Use a sit-to stand workstation or take frequent breaks from sitting if you have returned to work. 3. Walk for 30 minutes each day. If possible, do these three or more times a day POST OP WEEKS 6+ At your 6-week appointment we will give you a physical therapy referral to focus on a core stabilization and strengthening program. You should also work on leg & buttock strengthening, hamstring & quadriceps stretching, and continue a low impact aerobic activity program such as swimming, walking, or riding a stationary bicycle. During the initial 6 weeks after your surgery, you are at the highest risk of re-injuring your spine. You should generally avoid BLTs (bending, lifting and twisting combination motions) and follow the above guidelines to reduce the chance of reinjury. You can anticipate post op appointments in our office at approximately 3 weeks and 6 weeks after your surgery. INCISION CARE: If your incision is not draining you do NOT need to cover it with a dressing. Keep your incision clean, dry and intact. In most cases, we apply skin glue, dilia or sutures to the incision at the time of surgery. This will be like a crust or have the appearance of a scab and will fall off in time on its own. The stitches or dilia need to be removed at 3 weeks post op appointment. You may begin to shower 3 days after surgery (this allows the glue to nieves well). However, please avoid scrubbing the incision site or peeling off any of the skin glue. This will ensure optimal healing of your incision. Also, during this time avoid soaking the incision area in water - this includes swimming pools, hot tubs or baths. No ointments, lotions or oils on the incision until your surgeon allows. Leave dilia, sutures or glue in place. Neurological dysfunction that comes on suddenly can also be a sign of a stroke. Below some common symptoms of a stroke are listed: B - balance difficulty such as sudden onset walking or leaning to one side - NEW E - eye problem such as sudden double vision or trouble seeing on one side - NEW F - Facial weakness or numbness on one side - NEW A - Arm or leg weakness or numbness on one side - NEW S - Slurred speech or difficulty with word finding - NEW T - Time is BRAIN! Call 911 as soon as you recognize these symptoms Diet: Consume a regular diet rich in vegetables and lean protein such as chicken or fish. You should consume in a ratio of approximately 20% fats|40% carbohydrates|40%protein. Vegetables, sweet potatoes, brown rice or quinoa are examples of good carbohydrates. Chips, white bread, cookies and sweets/sugar are examples of bad carbohydrates. Limit your bad carbs, go wild with good carbs. "Life's Simple 7" Guidelines as per [place] [employer] These will help you reclaim your life after surgery and crop duster helper in your recovery, keeping in mind your restrictions. (1) Get Active. Physical activity can help people lose weight, control high blood pressure and cholesterol, feel emotionally better, and sleep better. (2) Control Cholesterol. Avoid a diet high in saturated fat, trans fat, & cholesterol. Limit whole milk & cream, ice cream, butter, egg yolks, processed meats (like sausage and hot dogs), and fatty meats. Choose healthy foods that are low in saturated fat, trans fat and cholesterol which include: Fruits and vegetables, fiber rich grain products (like whole grain pasta and brown rice), lean meat such as chicken, fish, nuts, seeds, and legumes. (3) Eat Better. Eat small portions. Shop at the grocery with a list and do not stray from it. Tips for a healthy diet include: Limit sodium intake to less than 1500mg daily, avoid prepackaged, processed, and fast foods, choose a diet rich in fruits, vegetables, and whole grain, high fiber foods, and limit saturated & cholesterol in your diet. (4) Manage Blood Pressure. If you have high blood pressure, you should have a cuff at home so that you can check your blood pressure regularly. Be sure you have a good cuff. An arm one is generally better than a wrist one. Bring the cuff to a doctor's appointment to validate that the measurements that your cuff are taking are accurate. Take your blood pressure twice daily when you are sitting down and relaxing. Record the numbers in a log and bring this log with you to your doctors' appointments. (5) Lose Weight if your BMI is above 25. A healthy BMI is between 19-25. To calculate Your BMI, you may use a Standard BMI Calculator on the NIH BMI website: <www.nhlbi.nih.gov/guidelines/obesity/BMI/bmicalc.htm>. Weigh oneself daily. If you are overweight, set a goal to lose weight. A pound a week loss if needed is a good target. (6) Reduce Blood Sugar. Limit foods and liquids with "added sugars." (Added sugars include sucrose, fructose, glucose, maltose, dextrose, high fructose corn syrup, corn syrup, concentrated fruit juice and honey). (7) Stop Smoking. If you smoke, quitting smoking is one of the best things that you can do for your health. Smoking increases your risk of heart attack, stroke, and peripheral vascular disease, which is a build-up of plaque in your arteries. Please discard all the cigarettes and lighters in your house. Have a plan for what you will do when you have the urge to smoke. Direct and second- hand smoke shortens your life as well as the lives of your family, friends and others around you. For your health and the health of those around you, please consider quitting! Proper Bending Body Mechanics: Maintain a wide stance with one foot slightly in front of the other. Keep your back straight. Bend utilizing the strength in your hips and knees. Do not bend at the waist. Maintain the lifted object at your waist-level close to your body. Avoid lifting weight that causes immediately pain or pain anywhere in the body afterwards. Smoking/Nicotine If there was ever one thing that you could do to increase your overall health, decrease your risk of cardiovascular problems by about 39% the second you make the choice, it is to STOP SMOKING. Your body's most instant gratification is the second you stop smoking. We have all heard the studies, read the articles but it is true, smoking is extremely bad for your overall health, and moreover it is detrimental to your bone health. Nicotine, IN ANY FORM, kills bone cells, prevents your body from healing fractures, and significantly prolongs healing after surgery. In spine surgery specifically, it increases your risk of not healing your bones to create a fusion and increases your risk of having a revision surgery due to this up to 60%. I know it is hard. I know it feels impossible. But there are ways. Take control of your life. We are here to help you through it. And when you are ready, ask us and we can direct you to help if you desire. Use the START Plan to Quit Smoking (please visit the Helpguide.org website listed below for more information): S = Set a quit date. Choose a date within the next 2 weeks, so you have enough time to prepare without losing your motivation to quit. If you mainly smoke at work, quit on the weekend, so you have a few days to adjust to the change. T = Tell family, friends, and co-workers that you plan to quit. Let your friends and family in on your plan to quit smoking and tell them you need their support and encouragement to stop. Look for a quit aba who wants to stop smoking as well. You can help each other get through the rough times. A = Anticipate and plan for the challenges you'll face while quitting. Most people who begin smoking again do so within the first 3 months. You can help yourself make it through by preparing ahead for common challenges, such as nicotine withdrawal and cigarette cravings. R = Remove cigarettes and other tobacco products from your home, car, and work. Throw away all your cigarettes (no emergency pack!), lighters, ashtrays, and matches. Wash your clothes and freshen up anything that smells like smoke. Shampoo your car, clean your drapes and carpet, and steam your furniture. T = Talk to your doctor about getting help to quit. Your doctor can prescribe medication to help with withdrawal and suggest other alternatives. If you can't see a doctor, you can get many products over the counter at your local pharmacy or grocery store, including the nicotine patch, nicotine lozenges, and nicotine gum. Resources for Quitting Smoking: <https://www.[place].gov/documents/ [facility]/Quit_Tobacco_Resources_for_patients_313480_7.pdf> Supplementation: Take recommended dosages of Vitamin D and Calcium to help fortify your bones and help them to heal. See your health maintenance packet for dosages and recommended levels. DVT/VTE prophylaxis: You will be given compression stockings from the hospital. Wear these daily for the first two weeks after surgery. You may take them off at night. You may be prescribed a medication to help thin your blood. Take this as directed. If you are not prescribed this medication, early and frequent ambulation has been shown to be the best prophylaxis to deep vein thrombosis and sequelae related to this event. Assessment: 1. Wound dehiscense with lumbar infection 2. SIRS criteria 3. Complex medical history Procedures: 1. Incision and drainage with irrigation and debridment Lumbar spine skin, muscle, soft tissue and bone [id number] cm using the following: -Kinfe to freshen skin edges and remove necrotic tissues -Rongure and curette to remove necrotic and infective tissue 2. L3-4 bilateral laminectomy, partial medial facetectomy and foraminotomy Patient Condition at Discharge: Fair Plan - Discharge Summary Discharge Rx Participant: No New Discharge Prescriptions: New Pregabalin [Lyrica] 150 mg PO TID #30 cap Cyclobenzaprine [Flexeril] 10 mg PO HS #30 tab Sennosides/Docusate Sodium [Senna Plus 8.6-50 mg Softgel] 1 each PO DAILY #20 capsule ceFAZolin [Kefzol] 2 gm IVP Q8HR #120 each HYDROcodone/APAP 10-325MG [Gobler 10-325] 1 tab PO Q4-6H PRN #32 tab PRN Reason: Pain No Action Pregabalin [Lyrica] 150 mg PO TID Levothyroxine Sodium [Synthroid] 125 mcg PO DAILY Amitriptyline HCl [Elavil] 25 mg PO HS Oxybutynin Chloride [Oxybutynin Chloride ER] 10 mg PO HS Pantoprazole [Protonix] 40 mg PO DAILY #30 tab Metoprolol Succinate (ER) [Toprol XL] 25 mg PO HS QUEtiapine [SEROquel] 400 mg PO HS 30 Days tab Cyclobenzaprine [Flexeril] 10 mg PO HS DULoxetine HCL [Cymbalta] 120 mg PO HS Aspirin 81 mg PO DAILY #30 tab Atorvastatin [Lipitor] 80 mg PO DAILY #30 tab Clopidogrel [Plavix] 75 mg PO DAILY #30 tab HYDROcodone/APAP 7.5-325MG [Gobler 7.5] 1 tab PO Q4HR PRN PRN Reason: Pain Discharge Medication List Metoprolol Succinate (ER) [Toprol XL] 25 mg PO HS 07/10/21 [History] Pregabalin [Lyrica] 150 mg PO TID 07/18/21 [History] Levothyroxine Sodium [Synthroid] 125 mcg PO DAILY 06/18/22 [History] QUEtiapine [SEROquel] 400 mg PO HS 30 Days tab 06/19/22 [Rx] Cyclobenzaprine [Flexeril] 10 mg PO HS 09/23/22 [History] Amitriptyline HCl [Elavil] 25 mg PO HS 10/30/22 [History] DULoxetine HCL [Cymbalta] 120 mg PO HS 10/30/22 [History] Oxybutynin Chloride [Oxybutynin Chloride ER] 10 mg PO HS 10/30/22 [History] Aspirin 81 mg PO DAILY #30 tab 11/01/22 [Rx] Atorvastatin [Lipitor] 80 mg PO DAILY #30 tab 12/09/22 [Rx] Clopidogrel [Plavix] 75 mg PO DAILY #30 tab 12/09/22 [Rx] Pantoprazole [Protonix] 40 mg PO DAILY #30 tab 12/09/22 [Rx] HYDROcodone/APAP 7.5-325MG [Gobler 7.5] 1 tab PO Q4HR PRN 12/16/22 [History] Cyclobenzaprine [Flexeril] 10 mg PO HS #30 tab 12/23/22 [Rx] HYDROcodone/APAP 10-325MG [Gobler 10-325] 1 tab PO Q4-6H PRN #32 tab 12/23/22 [Rx] Pregabalin [Lyrica] 150 mg PO TID #30 cap 12/23/22 [Rx] Sennosides/Docusate Sodium [Senna Plus 8.6-50 mg Softgel] 1 each PO DAILY #20 capsule 12/23/22 [Rx] ceFAZolin [Kefzol] 2 gm IVP Q8HR #120 each 12/23/22 [Rx] Follow up Appointment(s)/Referral(s): Nathanael Nogueira MD [Primary Care Provider] - 1-2 days [facility], [NON-STAFF] - 1 Week Nima Nova DO [Doctor of Osteopathic Medicine] - 01/09/23 10:30 am Sukh Reyes MD [STAFF PHYSICIAN] - 1 Week Ambulatory/Diagnostic Orders: Basic Metabolic Panel [LAB.AMB] Location: None Selected C Reactive Protein [LAB.AMB] Location: None Selected Complete Blood Count w/diff [LAB.AMB] Location: None Selected Erythrocyte Sedimentation Rate [LAB.AMB] Location: None Selected Activity/Diet/Wound Care/Special Instructions: Spine Discharge and Recovery Instructions Date of Surgery: 12/18/2022 Diagnosis: 1. Wound dehiscense with lumbar infection 2. SIRS criteria 3. Complex medical history Procedure(s) Performed: 1. Incision and drainage with irrigation and debridment Lumbar spine skin, muscle, soft tissue and bone [id number] cm using the following: -Kinfe to freshen skin edges and remove necrotic tissues -Rongure and curette to remove necrotic and infective tissue 2. L3-4 bilateral laminectomy, partial medial facetectomy and foraminotomy Medications: See medication list All medication refills should be obtained through your primary care doctor or your clinic spine surgeon. Please discuss prescription refills at your follow up appointment. Do not call the hospital for medication refills. Dressing: Leave your dressing in place for a total of 5 days post operatively. Then you may remove your dressing and leave open to air. Keep the area clean and if not able to keep area clean, then cover with sterile gauze and tape. Showering: You may shower 3 days after your procedure allowing soap and water to run over incision. Do not scrub. Do not soak. Blot dry. Follow up: Please confirm a follow up appointment with your surgeon 3 weeks post operatively. Please make an appointment to follow up with your PCP in 1-2 weeks after surgery for evaluation 3 phase, 3-week plan POST OP WEEKS 1-3 1. Lifting/carrying/pushing/pulling limited to less than 5 pounds. 2. Do not sit for longer than 15 minutes at one time. Get up and walk around. Prolonged sitting is NOT advised. If you lay down, see if you can tolerate laying down on you front (belly side) 3. Walk for periods of 15 minutes = 1 mile but no longer; do it multiple times times each day. 4. Ice your low back after activity. POST OP WEEKS 3-6 1. Lifting limited to less than 20 pounds. 2. Do not sit for longer than 30 minutes at a time. Frequently change positions. Use a sit-to stand workstation or take frequent breaks from sitting if you have returned to work. 3. Walk for 30 minutes each day. If possible, do these three or more times a day POST OP WEEKS 6+ At your 6-week appointment we will give you a physical therapy referral to focus on a core stabilization and strengthening program. You should also work on leg & buttock strengthening, hamstring & quadriceps stretching, and continue a low impact aerobic activity program such as swimming, walking, or riding a stationary bicycle. During the initial 6 weeks after your surgery, you are at the highest risk of re-injuring your spine. You should generally avoid BLTs (bending, lifting and twisting combination motions) and follow the above guidelines to reduce the chance of reinjury. You can anticipate post op appointments in our office at approximately 3 weeks and 6 weeks after your surgery. INCISION CARE: If your incision is not draining you do NOT need to cover it with a dressing. Keep your incision clean, dry and intact. In most cases, we apply skin glue, dilia or sutures to the incision at the time of surgery. This will be like a crust or have the appearance of a scab and will fall off in time on its own. The stitches or dilia need to be removed at 3 weeks post op appointment. You may begin to shower 3 days after surgery (this allows the glue to nieves well). However, please avoid scrubbing the incision site or peeling off any of the skin glue. This will ensure optimal healing of your incision. Also, during this time avoid soaking the incision area in water - this includes swimming pools, hot tubs or baths. No ointments, lotions or oils on the incision until your surgeon allows. Leave dilia, sutures or glue in place. Neurological dysfunction that comes on suddenly can also be a sign of a stroke. Below some common symptoms of a stroke are listed: B - balance difficulty such as sudden onset walking or leaning to one side - NEW E - eye problem such as sudden double vision or trouble seeing on one side - NEW F - Facial weakness or numbness on one side - NEW A - Arm or leg weakness or numbness on one side - NEW S - Slurred speech or difficulty with word finding - NEW T - Time is BRAIN! Call 911 as soon as you recognize these symptoms Diet: Consume a regular diet rich in vegetables and lean protein such as chicken or fish. You should consume in a ratio of approximately 20% fats|40% carbohydrates|40%protein. Vegetables, sweet potatoes, brown rice or quinoa are examples of good carbohydrates. Chips, white bread, cookies and sweets/sugar are examples of bad carbohydrates. Limit your bad carbs, go wild with good carbs. "Life's Simple 7" Guidelines as per [place] [employer] These will help you reclaim your life after surgery and crop duster helper in your recovery, keeping in mind your restrictions. (1) Get Active. Physical activity can help people lose weight, control high blood pressure and cholesterol, feel emotionally better, and sleep better. (2) Control Cholesterol. Avoid a diet high in saturated fat, trans fat, & cholesterol. Limit whole milk & cream, ice cream, butter, egg yolks, processed meats (like sausage and hot dogs), and fatty meats. Choose healthy foods that are low in saturated fat, trans fat and cholesterol which include: Fruits and vegetables, fiber rich grain products (like whole grain pasta and brown rice), lean meat such as chicken, fish, nuts, seeds, and legumes. (3) Eat Better. Eat small portions. Shop at the grocery with a list and do not stray from it. Tips for a healthy diet include: Limit sodium intake to less than 1500mg daily, avoid prepackaged, processed, and fast foods, choose a diet rich in fruits, vegetables, and whole grain, high fiber foods, and limit saturated & cholesterol in your diet. (4) Manage Blood Pressure. If you have high blood pressure, you should have a cuff at home so that you can check your blood pressure regularly. Be sure you have a good cuff. An arm one is generally better than a wrist one. Bring the cuff to a doctor's appointment to validate that the measurements that your cuff are taking are accurate. Take your blood pressure twice daily when you are sitting down and relaxing. Record the numbers in a log and bring this log with you to your doctors' appointments. (5) Lose Weight if your BMI is above 25. A healthy BMI is between 19-25. To calculate Your BMI, you may use a Standard BMI Calculator on the NIH BMI website: <www.nhlbi.nih.gov/guidelines/obesity/BMI/bmicalc.htm>. Weigh oneself daily. If you are overweight, set a goal to lose weight. A pound a week loss if needed is a good target. (6) Reduce Blood Sugar. Limit foods and liquids with "added sugars." (Added sugars include sucrose, fructose, glucose, maltose, dextrose, high fructose corn syrup, corn syrup, concentrated fruit juice and honey). (7) Stop Smoking. If you smoke, quitting smoking is one of the best things t hat you can do for your health. Smoking increases your risk of heart attack, stroke, and peripheral vascular disease, which is a build-up of plaque in your arteries. Please discard all the cigarettes and lighters in your house. Have a plan for what you will do when you have the urge to smoke. Direct and second- hand smoke shortens your life as well as the lives of your family, friends and others around you. For your health and the health of those around you, please consider quitting! Proper Bending Body Mechanics: Maintain a wide stance with one foot slightly in front of the other. Keep your back straight. Bend utilizing the strength in your hips and knees. Do not bend at the waist. Maintain the lifted object at your waist-level close to your body. Avoid lifting weight that causes immediately pain or pain anywhere in the body afterwards. Smoking/Nicotine If there was ever one thing that you could do to increase your overall health, decrease your risk of cardiovascular problems by about 39% the second you make the choice, it is to STOP SMOKING. Your body's most instant gratification is the second you stop smoking. We have all heard the studies, read the articles but it is true, smoking is extremely bad for your overall health, and moreover it is detrimental to your bone health. Nicotine, IN ANY FORM, kills bone cells, prevents your body from healing fractures, and significantly prolongs healing after surgery. In spine surgery specifically, it increases your risk of not healing your bones to create a fusion and increases your risk of having a revision surgery due to this up to 60%. I know it is hard. I know it feels impossible. But there are ways. Take control of your life. We are here to help you through it. And when you are ready, ask us and we can direct you to help if you desire. Use the START Plan to Quit Smoking (please visit the Helpguide.org website listed below for more information): S = Set a quit date. Choose a date within the next 2 weeks, so you have enough time to prepare without losing your motivation to quit. If you mainly smoke at work, quit on the weekend, so you have a few days to adjust to the change. T = Tell family, friends, and co-workers that you plan to quit. Let your friends and family in on your plan to quit smoking and tell them you need their support and encouragement to stop. Look for a quit aba who wants to stop smoking as well. You can help each other get through the rough times. A = Anticipate and plan for the challenges you'll face while quitting. Most people who begin smoking again do so within the first 3 months. You can help yourself make it through by preparing ahead for common challenges, such as nicotine withdrawal and cigarette cravings. R = Remove cigarettes and other tobacco products from your home, car, and work. Throw away all your cigarettes (no emergency pack!), lighters, ashtrays, and matches. Wash your clothes and freshen up anything that smells like smoke. Shampoo your car, clean your drapes and carpet, and steam your furniture. T = Talk to your doctor about getting help to quit. Your doctor can prescribe medication to help with withdrawal and suggest other alternatives. If you can't see a doctor, you can get many products over the counter at your local pharmacy or grocery store, including the nicotine patch, nicotine lozenges, and nicotine gum. Resources for Quitting Smoking: <https://www.[place].gov/documents/[facility]/Quit_Tobacco_Resources_for_pati ents_313480_7.pdf> Supplementation: Take recommended dosages of Vitamin D and Calcium to help fortify your bones and help them to heal. See your health maintenance packet for dosages and re commended levels. DVT/VTE prophylaxis: You will be given compression stockings from the hospital. Wear these daily for the first two weeks after surgery. You may take them off at night. You may be prescribed a medication to help thin your blood. Take this as directed. If you are not prescribed this medication, early and frequent ambulation has been shown to be the best prophylaxis to deep vein thrombosis and sequelae related to this event. Discharge Disposition: HOME WITH HOME HEALTH SERVICES
--- NOTE | 2022-12-23 14:38 | P.PN ---
Subjective Progress Note Date: 12/23/22 Patient is a 62-year-old female with recent cardiac arrest on 12/02/22 while under going lumbar revision fusion which was partially completed secondary to development of intraoperative ventricular arrhythmia, CAD status post stenting 6, hypertension, and hyperlipidemia who presented to the emergency department due to worsening lower back pain and fever. In the emergency department when underwent and extensive evaluation. CT thoracic and lumbar spine demonstrated a subcutaneous fluid collection consistent with recent postsurgical changes seroma/hematoma, abscess not excluded at this time. Laboratory analysis was remarkable for a WBCs of 15.7, ESR of 51, an elevated CRP of 17.4. She was diagnosed with sepsis due to a temp of 103. She was started on IV antibiotics. We were consulted for medical management. ID, orthopedics,critical care, and cardiology following. On 12/18 she underwent Incision and drainage with irrigation and debridement lumbar spine. She required vasopressors overnight postoperatively and a short ICU stay. She was transitioned to the step down unit and then medical floor. Her cultures came back with a strep bactermia and MSSA wound infection. Patient seen and examined at bedside. She is feeling tired today. Her pain has been decently controlled. She denies any nausea or vomiting. She is excited transition to rehab and work on getting stronger. Vital signs reviewed General: nontoxic, no distress, appears at stated age Cardiovascular: S1S2 reg, no murmur, positive posterior tibial pulse bilateral, Lungs: CTA bilateral, no rhonchi, no rales , no accessory muscle use Abdominal: soft, nontender to palpation, no guarding, no appreciable o rganomegaly Ext: no gross muscle atrophy, no edema, no contractures Neuro: CN II-XI grossly intact, no focal neuro deficits Psych: Alert, oriented, appropriate affect Assessment: MSSA Post-op infection,POD # 4 s/p Incision and drainage with irrigation and debridement lumbar spine Alpha hemolytic strep bacteremia Transaminitis, suspect reactive Acute blood loss anemia, anticipated outcome of surgery Obesity with BMI 36.1 Hx of V fib arrest CAD status post stenting 6 Hyperchloremic metabolic acidosis, resolved Septic shock, resolved Imaging: Data Review: Laboratory analysis from today reviewed hemoglobin 9.5 (stable from 9.3, creatinine 0.65, liver enzymes have normalized. Plan: - ID note reviewed: cefazolin for 6 weeks, PICC line placed 12/22/22. Discuss w ith infectious disease and they feel that bacteremia and wound are likely the same infection. - Spine note reviewed: conitnue with spine precuations - cardio and pulm signed off - Cefazolin 2 grams every 8 hours day # 7 - Midodrine 10 mg TID decreased to 5 mg 3 times a day is also systolic blood p ressures have been greater than 106 - Repeat blood cultures negative to date Patient medically optimized for discharge at the discretion of orthopedic surgery. Discharge medication reconciliation has been addressed. Patient will need a total of 6 weeks of IV Cefazolin. She will need to follow-up with Dr. Reyes, she should also [facility] with [facility] due to her recent V. fib arrest. These were added to the discharge tab. DVT prophylaxis: Lovenox This dictation was prepared using [employer] voice recognition software. Though every attempt is made to correct errors during during dictation some may still exist. Objective - Vital Signs Vital signs: Vital Signs Temp 98.7 F 12/23/22 13:02 Pulse 58 L 12/23/22 13:02 Resp 18 12/23/22 13:02 BP 111/70 12/23/22 13:02 Pulse Ox 97 12/23/22 13:02 FiO2 95 12/18/22 20:00 Intake & Output 12/22/22 12/23/22 12/23/22 18:59 06:59 18:59 Intake Total 240 Balance 240 Weight 86.7 kg Intake: Oral 240 Other: Voiding Method Toilet Toilet Toilet # Voids 2 3 ABP, PAP, CO, CI - Last Documented Arterial Blood Pressure 91/44 - Labs CBC & Chem 7: 12/23/22 06:50 12/23/22 06:50 Labs: Abnormal Lab Results - Last 24 Hours (Table) 12/23/22 12/23/22 Range/Units 06:50 06:50 RBC 2.83 L (4.10-5.20) X 10*6/uL Hgb 8.7 L (12.0-15.0) g/dL Hct 28.4 L (37.2-46.3) % MCV 100.4 H (80.0-97.0) fL MCHC 30.6 L (32.0-37.0) g/dL RDW 15.2 H (11.5-14.5) % Carbon Dioxide 30.1 H (20.0-27.5) mmol/L Anion Gap 9.00 L (10.00-18.00) mmol/L BUN 4.4 L (9.0-27.0) mg/dL BUN/Creatinine Ratio 6.50 L (12.00-20.00) Ratio Calcium 8.0 L (8.7-10.3) mg/dL Microbiology - Last 24 Hours (Table) 12/17/22 23:00 Blood Culture - Preliminary Blood No Growth after 120 hours 12/17/22 23:15 Blood Culture - Preliminary Blood No Growth after 120 hours 12/18/22 13:30 Anaerobic Culture - Final Back 12/18/22 13:30 Anaerobic Culture - Final Back
--- NOTE | 2022-12-23 19:29 | P.PN ---
Subjective Progress Note Date: 12/23/22 Principal diagnosis: Bacteremia and lumbar surgical site infection Patient is a 62-year-old female with multiple comorbidities including coronary artery disease hypertension hyperlipidemia VT history of chronic back pain in this patient who did have a history of multiple back surgeries patient was recently taken to the OR on November 24, 2022 for revision L3 to pelvis decompression and fusion the procedure was aborted due to V-fib event resulting in the crash closure, now presented to hospital with fever and mental status changes increasing pain and some drainage from the lumbar surgical site.Patient was taken to the OR this morning and the patient is status post revision posterior lateral fusion L3-S1 with removal of the hardware L4-S1 and OR cultures. On today's evaluation, that is 12/23/2022, the patient remains to be afebrile, the patient is breathing comfortably on room air the patient denies chest pain shortness of breath or cough , and pain to the back is controlled with the pain medication, the patient denies nausea no vomiting and no diarrhea Objective - Vital Signs Vital signs: Vital Signs Temp 98.5 F 12/23/22 08:00 Pulse 50 L 12/23/22 08:00 Resp 16 12/23/22 08:00 BP 109/67 12/23/22 08:46 Pulse Ox 96 12/23/22 08:00 FiO2 95 12/18/22 20:00 Intake & Output 12/22/22 12/23/22 12/23/22 18:59 06:59 18:59 Other: Voiding Method Toilet Toilet # Voids 2 3 ABP, PAP, CO, CI - Last Documented Arterial Blood Pressure 91/44 - Exam GENERAL DESCRIPTION: Middle-age female lying in bed in no distress RESPIRATORY SYSTEM: Unlabored breathing , decreased breath sounds at bases HEART: S1 S2 regular rate and rhythm , ABDOMEN: Soft , no tenderness EXTREMITIES: No edema feet - Labs CBC & Chem 7: 12/23/22 06:50 12/23/22 06:50 Labs: Microbiology - Last 24 Hours (Table) 12/17/22 23:00 Blood Culture - Preliminary Blood No Growth after 120 hours 12/17/22 23:15 Blood Culture - Preliminary Blood No Growth after 120 hours 12/18/22 13:30 Anaerobic Culture - Final Back 12/18/22 13:30 Anaerobic Culture - Final Back 12/18/22 04:08 Anaerobic Culture - Final Back Assessment and Plan (1) Bacteremia Current Visit: Yes Status: Acute Code(s): R78.81 - BACTEREMIA SNOMED Code(s): 1484392 (2) Post op infection Current Visit: Yes Status: Acute Code(s): T81.40XA - INFECTION FOLLOWING A PROCEDURE, UNSPECIFIED, INIT SNOMED Code(s): 83863401 Plan: 1patient presented to hospital with sepsis in this patient with a recent lumbar spine surgery which was aborted because of V-fib and a crash closure with increasing pain to the lumbar spine along with drainage and did have abnormal CT concerning for possible abscess and now with blood culture positive for alphahemolytic streptococcus 2patient is status post I&D of the lumbosacral spine incision and removal of the hardware on 12/18/2022 with the OR cultures currently growing MSSA 3patient seemed Subclinical Improvement and Will continue with the cefazolin , patient did got a PICC line and plan is to continue 6 weeks of IV cefazolin and close outpatient follow-up Time with Patient: Less than 30
[2022-12-23] MEDS: METOPROLOL SUCCINATE (ER) 25 MG TAB.ER.24H PO SCH (19:53)
[2022-12-23] MEDS: CYCLOBENZAPRINE 10 MG TAB PO SCH (19:55)
[2022-12-23] MEDS: ATORVASTATIN 80 MG TAB PO SCH (19:56)
[2022-12-23] MEDS: AMITRIPTYLINE HCL 25 MG TAB PO SCH (19:56)
[2022-12-23] MEDS: QUEtiapine 400 MG TAB PO SCH (19:56)
[2022-12-23] MEDS: OXYBUTYNIN 10 MG TAB.ER.24 PO SCH (19:57)
[2022-12-23] MEDS: DULoxetine HCL 60 MG CAPSULE.DR PO SCH (19:57)
[2022-12-24] MEDS: HYDROcodone/APAP 10-325MG 1 EACH TAB PO PRN ×3 (02:07→15:28)
[2022-12-24 02:57] VITALS: RESP 16
[2022-12-24] MEDS: LEVOTHYROXINE 125 MCG TAB PO SCH (05:48)
[2022-12-24] MEDS: MIDODRINE 5 MG TAB PO SCH (05:48)
[2022-12-24] MEDS: PANTOPRAZOLE 40 MG TABLET PO SCH (05:48)
--- NOTE | 2022-12-24 08:35 | P.PN ---
Subjective Progress Note Date: 12/24/22 Principal diagnosis: 1. s/p Revision posteriolateral fusion L3-S1 with Removal of hardware L4-S1 2. Sepsis 3. Post-op infection Patient seen and examined this morning. Patient was resting comfortably in bed. Patient reports her pain is managed on current regimen. Patient has been up independently in room. Patient has poor safety awareness and is very impulsive with her movements. She has been noncompliant about wearing her brace and limitations of bending and twisting. She continues to deny any numbness or tingling to bilateral lower extremities. Surgical dressing has been changed this morning. There was moderate serosanguineous drainage from the inferior portion of the incision. Sutures are intact and edges of incision are well approximated. Patient has been afebrile, denies nausea/vomiting, or chest pain. Objective - Vital Signs Vital signs: Vital Signs Temp 98.1 F 12/24/22 02:00 Pulse 53 L 12/24/22 02:00 Resp 16 12/24/22 02:00 BP 119/63 12/24/22 02:00 Pulse Ox 95 12/24/22 02:00 FiO2 95 12/18/22 20:00 Intake & Output 12/23/22 12/24/22 12/24/22 18:59 06:59 18:59 Intake Total 240 Output Total 1800 Balance -1560 Weight 86.7 kg Intake: Oral 240 Output: Urine 1800 Other: Voiding Method Toilet # Voids 3 5 # Bowel Movements 0 ABP, PAP, CO, CI - Last Documented Arterial Blood Pressure 91/44 - Exam General: The patient is awake and alert, in no acute distress Skin: Skin is warm and dry with no obvious rashes or lesions. Surgical incision to the lumbar spine, dressing CDI. PICC line present to the left upper extremity. Eye: Pupils are equal, round and reactive to light, extra-ocular movements are intact; there is normal conjunctiva bilaterally. Neck: The neck is supple, there is no tenderness and ROM intact. Cardiovascular: There is a regular rate and rhythm. No murmur, rub or gallop is appreciated. Respiratory: Lungs are clear to auscultation, respirations are non-labored, breath sounds are equal. Gastrointestinal: Soft, non-distended, non-tender abdomen. Back: There is no tenderness to palpation in the midline, paralumbar, parathoracic or buttocks region. There is no obvious deformity. Musculoskeletal: ROM limited secondary to pain and stiffness from surgical procedure. Shoulder abduction 5/5, elbow flexors 5/5, wrist dorsiflexors 5/5. finger abductor 5/5, autobody technician 5/5, hip flexor 4/5, knee flexor 4/5, ankle dorsiflexor 4/5, ankle plantarflexion 4/5 and extensor hallucis 4/5. Neurological: CN 2-12 intact. There are no obvious motor or sensory deficits. Movement and coordination equal and intact. Sensory exam to light touch intact C5-T1 and intact from L2-S1. Reflexes 2/4 in bilateral upper and lower extremities. Negative Hoffmans, babinski, and clonus signs. Psychiatric: Cooperative, appropriate mood & affect, normal judgment. - Labs CBC & Chem 7: 12/23/22 06:50 12/23/22 06:50 Labs: Abnormal Lab Results - Last 24 Hours (Table) 12/23/22 12/23/22 Range/Units 06:50 06:50 RBC 2.83 L (4.10-5.20) X 10*6/uL Hgb 8.7 L (12.0-15.0) g/dL Hct 28.4 L (37.2-46.3) % MCV 100.4 H (80.0-97.0) fL MCHC 30.6 L (32.0-37.0) g/dL RDW 15.2 H (11.5-14.5) % Carbon Dioxide 30.1 H (20.0-27.5) mmol/L Anion Gap 9.00 L (10.00-18.00) mmol/L BUN 4.4 L (9.0-27.0) mg/dL BUN/Creatinine Ratio 6.50 L (12.00-20.00) Ratio Calcium 8.0 L (8.7-10.3) mg/dL Microbiology - Last 24 Hours (Table) 12/17/22 23:00 Blood Culture - Final Blood No Growth after 144 hours 12/17/22 23:15 Blood Culture - Final Blood No Growth after 144 hours Assessment and Plan Assessment: Postop day 6: Incision and drainage with irrigation and debridement with lumbar laminectomy and decompression 1. s/p Revision posteriolateral fusion L3-S1 with Removal of hardware L4-S1 2. Sepsis 3. Post-op infection Plan: -Appreciate cruise consultant and team management. -Continue to follow with ID, IV antibiotics. -Activity: Ambulate QID, OOB all meals, up and about, limit lifting bending twisting to less than 5 lbs. Use walker or cane if needed for stability. -Daily PT/OT, increase ambulation strength and balance. -Brace when up and about, not needed in bed or chair -Pain control: Adequate at this time -Meds: reviewed -GI ppx: senna, Miralax -DVT PPX: Heparin -Hygiene: Shower today. Maintain dressing clean and dry. Dressing should be changed at least twice daily. Meticulous cleaning after BMs away from the incision site -Encourage IS 10x/hr -Dispo: Patient to be discharged to [facility]. I reviewed and discussed this case with my attending Dr. Nova, whom has reviewed this chart and films and is in agreement with assessment and plan of care as outlined above. I have personally seen and examined the patient, performed the documentation and the assessment and plan as written. Number of minutes spent on the visit: 15m.
[2022-12-24] MEDS: PREGABALIN 75 MG CAP PO SCH (09:00)
[2022-12-24] MEDS: polyethylene glycoL 3350 17 GM POWD.PACK PO SCH (09:01)
[2022-12-24] MEDS: ENOXAPARIN 40 MG/0.4 ML SYRINGE SQ SCH (09:01)
--- NOTE | 2022-12-24 09:54 | P.PN ---
Subjective Progress Note Date: 12/24/22 Patient is a 62-year-old female with recent cardiac arrest on 12/02/22 while under going lumbar revision fusion which was partially completed secondary to development of intraoperative ventricular arrhythmia, CAD status post stenting 6, hypertension, and hyperlipidemia who presented to the emergency department due to worsening lower back pain and fever. In the emergency department when underwent and extensive evaluation. CT thoracic and lumbar spine demonstrated a subcutaneous fluid collection consistent with recent postsurgical changes seroma/hematoma, abscess not excluded at this time. Laboratory analysis was remarkable for a WBCs of 15.7, ESR of 51, an elevated CRP of 17.4. She was diagnosed with sepsis due to a temp of 103. She was started on IV antibiotics. We were consulted for medical management. ID, orthopedics,critical care, and cardiology following. On 12/18 she underwent Incision and drainage with irrigation and debridement lumbar spine. She required vasopressors overnight postoperatively and a short ICU stay. She was transitioned to the step down unit and then medical floor. Her cultures came back with a strep bactermia and MSSA wound infection. Patient seen and examined at bedside. She is tired today. She ate well yesterday, she is having bowel movements, pain is controlled. No complaints. Vital signs reviewed General: nontoxic, no distress, appears at stated age Cardiovascular: S1S2 reg, no murmur, positive posterior tibial pulse bilateral, Lungs: CTA bilateral, no rhonchi, no rales , no accessory muscle use Abdominal: soft, nontender to palpation, no guarding, no appreciable organomegaly Ext: no gross muscle atrophy, no edema, no contractures Neuro: CN II-XI grossly intact, no focal neuro deficits Psych: Alert, oriented, appropriate affect Assessment: MSSA Post-op infection,s/p Incision and drainage with irrigation and debridement lumbar spine Alpha hemolytic strep bacteremia Transaminitis, suspect reactive Acute blood loss anemia, anticipated outcome of surgery Obesity with BMI 36.1 Hx of V fib arrest CAD status post stenting 6 Hyperchloremic metabolic acidosis, resolved Septic shock, resolved Plan: - ID note reviewed: cefazolin for 6 weeks, PICC line placed 12/22/22. Bacteremia and wound are likely the same infection. - Spine note reviewed: conitnue with spine precuations - cardio and pulm signed off - Cefazolin 2 grams every 8 hours day # 8 -Mi dodrine 5 mg TID. Patient medically optimized for discharge at the discretion of orthopedic surgery. Discharge medication reconciliation has been addressed on 12/23. Patient will need a total of 6 weeks of IV Cefazolin. She will need to follow- up with Dr. Reyes, she should also [facility] with [facility] due to her recent V. fib arrest. DVT prophylaxis: Lovenox This dictation was prepared using [employer] voice recognition software. Though every attempt is made to correct errors during during dictation some may still exist. Objective - Vital Signs Vital signs: Vital Signs Temp 98.3 F 12/24/22 09:41 Pulse 57 L 12/24/22 09:41 Resp 16 12/24/22 09:41 BP 132/68 12/24/22 09:41 Pulse Ox 95 12/24/22 09:41 FiO2 95 12/18/22 20:00 Intake & Output 12/23/22 12/24/22 12/24/22 18:59 06:59 18:59 Intake Total 240 Output Total 1800 Balance -1560 Weight 86.7 kg Intake: Oral 240 Output: Urine 1800 Other: Voiding Method Toilet Toilet # Voids 3 5 # Bowel Movements 0 ABP, PAP, CO, CI - Last Documented Arterial Blood Pressure 91/44 - Labs CBC & Chem 7: 12/23/22 06:50 12/23/22 06:50 Labs: Abnormal Lab Results - Last 24 Hours (Table) 12/23/22 12/23/22 Range/Units 06:50 06:50 RBC 2.83 L (4.10-5.20) X 10*6/uL Hgb 8.7 L (12.0-15.0) g/dL Hct 28.4 L (37.2-46.3) % MCV 100.4 H (80.0-97.0) fL MCHC 30.6 L (32.0-37.0) g/dL RDW 15.2 H (11.5-14.5) % Carbon Dioxide 30.1 H (20.0-27.5) mmol/L Anion Gap 9.00 L (10.00-18.00) mmol/L BUN 4.4 L (9.0-27.0) mg/dL BUN/Creatinine Ratio 6.50 L (12.00-20.00) Ratio Calcium 8.0 L (8.7-10.3) mg/dL Microbiology - Last 24 Hours (Table) 12/17/22 23:00 Blood Culture - Final Blood No Growth after 144 hours 12/17/22 23:15 Blood Culture - Final Blood No Growth after 144 hours
--- NOTE | 2022-12-24 10:21 | CDI ---
Documentation Clarification Form Date: 12/24/2022 10:08:42 AM From: Renee Alas RN, CCDS Email: [email or web address] Admit Date: 12/16/2022 2:04:00 AM Patient Name: Adeline Christiansen Visit Number: [id number] Discharge Date: ATTENTION: The Clinical Documentation Specialists (CDI) and [facility] Coding Staff appreciate your assistance in clarifying documentation. Please respond to the clarification below the line at the bottom and electronically sign. The CDI & [facility] Coding staff will review the response and follow-up if needed. Please note: Queries are made part of the Legal Health Record. If you have any questions, please contact the author of this message via ITS. Dr. Nima Nova Incision and drainage with irrigation and debridement of lumbar spine is documented in the procedure note. Additional clarification regarding the procedure is requested. History/Risk Factors: Presented on 12/02 for surgical intervention of the lumbar spine, revision [id number] decompression and fusion. Procedure was aborted due to a V. fib event, resulting in a crash closure and transfer into ICU. Now presents with wound dehiscence with lumbar infection resulting in sepsis. Clinical Indicators: Procedure note: "The wound was then reopened down to bone through skin and soft tissue muscle. These areas were debrided using curettes and rongeurs. The previous hardware was identified. Posterior lateral gutters were cleaned of any graft material. Phlegmon was removed from the surrounding areas and debrided using Kerrison rongeurs as well as curettes. Thorough debridement was performed. Once this was completed, a bilateral laminectomy was able to be performed at L3- L4 using a high-speed alessia and Kerrison rongeurs. The skin edges were freshened using a knife. The fascial edges were also freshened." Treatment: Incision and drainage, irrigation and debridement of lumbar spine at previous surgical site. Please clarify the type of procedure performed: [ ] Excisional debridement (the removal of necrotic, devitalized tissue or slough by means of cutting away of tissue) [ ] Non-excisional debridement (the removal of necrotic, devitalized tissue or slough by means of flushing, brushing, or washing. (Irrigation) [ ] Other; please specify [ ] Unable to determine Excisional debridement (the removal of necrotic, devitalized tissue or slough by means of cutting away of tissue) [facility]
[2022-12-24] MEDS ORDERED: MIDODRINE 5 MG TAB PO SCH (12:30)
[2022-12-24 13:43] VITALS: BP 122/74; PULSE 58; TEMP 98.6
--- NOTE | 2022-12-25 14:21 | P.PN ---
Subjective Progress Note Date: 12/24/22 Principal diagnosis: Bacteremia and lumbar surgical site infection Patient is a 62-year-old female with multiple comorbidities including coronary artery disease hypertension hyperlipidemia NE history of chronic back pain in this patient who did have a history of multiple back surgeries patient was recently taken to the OR on November 24, 2022 for revision L3 to pelvis decompression and fusion the procedure was aborted due to V-fib event resulting in the crash closure, now presented to hospital with fever and mental status changes increasing pain and some drainage from the lumbar surgical site.Patient was taken to the OR this morning and the patient is status post revision posterior lateral fusion L3-S1 with removal of the hardware L4-S1 and OR cultures. On today's evaluation, that is 12/24/2022, the patient remains to be afebrile, the patient is breathing comfortably on room air the patient denies chest pain shortness of breath or cough , patient has been complaining of pain to the back however somewhat controlled with the pain medication. Mention some drainage, the patient denies nausea no vomiting and no diarrhea Objective - Vital Signs Vital signs: Vital Signs Temp 98.3 F 12/24/22 09:41 Pulse 57 L 12/24/22 10:57 Resp 16 12/24/22 09:41 BP 132/68 12/24/22 09:41 Pulse Ox 95 12/24/22 09:41 FiO2 95 12/18/22 20:00 Intake & Output 12/23/22 12/24/22 12/24/22 18:59 06:59 18:59 Intake Total 240 Output Total 1800 Balance -1560 Weight 86.7 kg Intake: Oral 240 Output: Urine 1800 Other: Voiding Method Toilet Toilet # Voids 3 5 1 # Bowel Movements 0 ABP, PAP, CO, CI - Last Documented Arterial Blood Pressure 91/44 - Exam GENERAL DESCRIPTION: Middle-age female lying in bed in no distress RESPIRATORY SYSTEM: Unlabored breathing , decreased breath sounds at bases HEART: S1 S2 regular rate and rhythm , ABDOMEN: Soft , no tenderness EXTREMITIES: No edema feet - Labs CBC & Chem 7: 12/23/22 06:50 12/23/22 06:50 Labs: Abnormal Lab Results - Last 24 Hours (Table) 12/23/22 Range/Units 06:50 Carbon Dioxide 30.1 H (20.0-27.5) mmol/L Anion Gap 9.00 L (10.00-18.00) mmol/L BUN 4.4 L (9.0-27.0) mg/dL BUN/Creatinine Ratio 6.50 L (12.00-20.00) Ratio Calcium 8.0 L (8.7-10.3) mg/dL Microbiology - Last 24 Hours (Table) 12/17/22 23:00 Blood Culture - Final Blood No Growth after 144 hours 12/17/22 23:15 Blood Culture - Final Blood No Growth after 144 hours Assessment and Plan (1) Bacteremia Status: Acute Code(s): R78.81 - BACTEREMIA SNOMED Code(s): 9016743 (2) Post op infection Status: Acute Code(s): T81.40XA - INFECTION FOLLOWING A PROCEDURE, UNS PECIFIED, INIT SNOMED Code(s): 03365677 Plan: 1patient presented to hospital with sepsis in this patient with a recent lumbar spine surgery which was aborted because of V-fib and a crash closure with increasing pain to the lumbar spine along with drainage and did have abnormal CT concerning for possible abscess and now with blood culture positive for alphahemolytic streptococcus 2patient is status post I&D of the lumbosacral spine incision and removal of the hardware on 12/18/2022 with the OR cultures currently growing MSSA 3patient has shown clinical Improvement with the cefazolin , patient did got a PICC line and plan is to continue 6 weeks of IV cefazolin and weekly monitoring of CRP and a sed rate and close outpatient follow-up Time with Patient: Less than 30
== END 2022-12-24 16:02 | disposition home health service (06) | DRG 711 ==
LOC: EC 22:23 → 5NMEDONC 12-16 02:04 → 2SICU 12-18 17:24 → 3SCARD 12-19 18:46 → 4SSUR 12-21 15:35
PROVIDERS: ADMIT Orthopaedic Surgery; ATTEND Orthopaedic Surgery
PROC: 0QU00JZ Supplement Lumbar Vertebra with Synthetic Substitute, Open Approach (ICD-10-PCS; 2022-12-18)
PROC: 01NB0ZZ Release Lumbar Nerve, Open Approach (ICD-10-PCS; 2022-12-18)
PROC: 0W9L0ZZ Drainage of Lower Back, Open Approach (ICD-10-PCS; principal; 2022-12-18 12:00)
PROC: 02HV33Z Insertion of Infusion Device into Superior Vena Cava, Percutaneous Approach (ICD-10-PCS; 2022-12-22)
DX: T81.42XA Infection following a procedure, deep incisional surgical site, initial encounter (principal); R65.21 Severe sepsis with septic shock; A40.8 Other streptococcal sepsis; I47.0 Re-entry ventricular arrhythmia; T81.32XA Disruption of internal operation (surgical) wound, not elsewhere classified, initial encounter; I96 Gangrene, not elsewhere classified; L76.82 Other postprocedural complications of skin and subcutaneous tissue; D62 Acute posthemorrhagic anemia; M96.842 Postprocedural seroma of a musculoskeletal structure following a musculoskeletal system procedure; E87.8 Other disorders of electrolyte and fluid balance, not elsewhere classified; I10 Essential (primary) hypertension; E66.9 Obesity, unspecified; E03.9 Hypothyroidism, unspecified; F31.9 Bipolar disorder, unspecified; Y83.8 Other surgical procedures as the cause of abnormal reaction of the patient, or of later complication, without mention of misadventure at the time of the procedure; B95.61 Methicillin susceptible Staphylococcus aureus infection as the cause of diseases classified elsewhere; E78.5 Hyperlipidemia, unspecified; M79.7 Fibromyalgia; F41.0 Panic disorder [episodic paroxysmal anxiety]; I25.10 Atherosclerotic heart disease of native coronary artery without angina pectoris; B95.4 Other streptococcus as the cause of diseases classified elsewhere; R74.01 Elevation of levels of liver transaminase levels; G89.29 Other chronic pain; Z68.36 Body mass index [BMI] 36.0-36.9, adult; Z91.199 Patient's noncompliance with other medical treatment and regimen due to unspecified reason; Z87.891 Personal history of nicotine dependence; Z95.5 Presence of coronary angioplasty implant and graft; Z98.1 Arthrodesis status; I25.2 Old myocardial infarction; Z88.1 Allergy status to other antibiotic agents; Z88.0 Allergy status to penicillin; Z88.6 Allergy status to analgesic agent; Z79.899 Other long term (current) drug therapy; Z79.890 Hormone replacement therapy; Z79.02 Long term (current) use of antithrombotics/antiplatelets; Z79.82 Long term (current) use of aspirin
CPT/HCPCS: 36415; 36430; 36573; 71045; 72129; 72132; 80048; 80053; 81001; 83605; 83735; 85025; 85027; 85610; 85652; 85730; 86140; 86850; 86900; 86901; 86920; 87040; 87070; 87075; 87077; 87186; 87205; 93005; 94760; 96365; 96375; 99285

== ENCOUNTER 2023-03-06 23:23 | Emergency (ER) | payer OTHER ==
[2023-03-06 23:45] VITALS: TEMP 98.5
[2023-03-07 03:08] LABS: Basophils % (A) 0 %; Eosinophils # (A) 0.3 k/uL (0-0.7); Eosinophils % (A) 3 %; HCT 41.7 % (34.0-46.0); HGB 13.3 gm/dL (11.4-16.0); Lymphocytes # (A) 2.1 k/uL (1.0-4.8); Lymphocytes % (A) 24 %; MCH 30.6 pg (25.0-35.0); MCHC 31.9 g/dL (31.0-37.0); MCV 95.8 fL (80.0-100.0); Mean Platelet Volume 8.3; Monocytes # (A) 0.5 k/uL (0-1.0); Monocytes % (A) 6 %; Neutrophils # (A) 5.5 k/uL (1.3-7.7); Neutrophils % (A) 65 %; Platelet Count 218 k/uL (150-450); RBC 4.35 m/uL (3.80-5.40); RDW 14.9 % (11.5-15.5); WBC 8.6 k/uL (3.8-10.6)
[2023-03-07] MEDS ORDERED: MORPHINE SULFATE 4 MG/ML SYRINGE IM STA ×2 (03:14→05:51)
[2023-03-07 04:42] LABS: African American GFR (CKD) >90 (>60 ml/min/1.73 sqM); Anion Gap 11 mmol/L; Blood Urea Nitrogen 11 mg/dL (7-17); C Reactive Protein 1.6 mg/dL (<1.0); Calcium 8.6 mg/dL (8.4-10.2); Carbon Dioxide 24 mmol/L (22-30); Chloride 104 mmol/L (98-107); Glucose 136 mg/dL (74-99); Non-African American GFR(CKD) >90 (>60 ml/min/1.73 sqM); Potassium 3.2 mmol/L (3.5-5.1); Sodium 139 mmol/L (137-145)
[2023-03-07] MEDS ORDERED: MORPHINE SULFATE 4 MG/ML SYRINGE IV STA (05:50)
--- NOTE | 2023-03-07 05:51 | CT ---
EXAM: CT Head Without Intravenous Contrast CLINICAL HISTORY: ITS.REASON CT Reason: fall injury TECHNIQUE: Axial computed tomography images of the head/brain without intravenous contrast. CTDI is 49.2 mGy and DLP is 1201.4 mGy-cm. This CT exam was performed using one or more of the following dose reduction techniques: automated exposure control, adjustment of the mA and/or kV according to patient size, and/or use of iterative reconstruction technique. COMPARISON: CT dated 10/30/2022 FINDINGS: Brain: Unremarkable. No hemorrhage. No significant white matter disease. No edema. Ventricles: Unremarkable. No ventriculomegaly. Bones/joints: Unremarkable. No acute fracture. Soft tissues: Unremarkable. Sinuses: Unremarkable as visualized. No acute sinusitis. Mastoid air cells: Unremarkable as visualized. No mastoid effusion. IMPRESSION: Normal head/brain CT.
--- NOTE | 2023-03-07 05:55 | CT ---
EXAM: CT Lumbar Spine Without Intravenous Contrast CLINICAL HISTORY: ITS.REASON CT Reason: back pain TECHNIQUE: Axial computed tomography images of the lumbar spine without intravenous contrast. CTDI is 45.4 mGy and DLP is 1470.6 mGy-cm. This CT exam was performed using one or more of the following dose reduction techniques: automated exposure control, adjustment of the mA and/or kV according to patient size, and/or use of iterative reconstruction technique. COMPARISON: CT dated 12/04/2022 FINDINGS: Vertebrae: Vertebral body heights and alignment are maintained throughout. Discs/spinal canal/neural foramina: Status post posterior spinal fusion and laminectomy changes seen at L3-S1. Intervertebral disc spacers in place at L5-S1. Diffuse degenerative changes are seen throughout the lumbar spine. No spinal canal stenosis. Soft tissues: Unremarkable. Liver: Visualization of hepatic steatosis. Tubes, lines and devices: Partial visualization of spinal stimulation device seen within a right sacral neural foramen. IMPRESSION: Multilevel postsurgical change. No acute findings.
--- NOTE | 2023-03-07 06:00 | ED ---
Fall HPI - General Chief Complaint: Fall Stated Complaint: Fall,Head injury Time Seen by Provider: 03/07/23 01:10 Source: patient, EMS Mode of arrival: EMS Limitations: no limitations - History of Present Illness Initial Comments: This patient is 62-year-old woman who presents to have evaluation of low back pain and headache. The patient states that she had been going to leave her residence and then slipped and fell on the stairs. She states that she slid down about 14 stairs or so. She indicates pain to the low back. She states she also did strike her head. She was uncertain believes she may have lost consciousness. The patient was not able to get up for a while after the injury. Currently patient denies loss of bladder or bowel control. No saddle anesthesia. 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 Witnessed: no Place Fall Occurred: other (Outside) Loss of Consciousness: unsure Prolonged Down Time?: no Symptoms Prior to Fall: other (Generalized weakness) Location: head, back Severity: moderate Quality: aching Context: tripped/slipped Associated Symptoms: unable to walk - Related Data Home Medications Medication Instructions Recorded Confirmed Metoprolol Succinate (ER) [Toprol 25 mg PO HS 07/10/21 12/16/22 XL] Levothyroxine Sodium [Synthroid] 125 mcg PO DAILY 06/18/22 12/16/22 Amitriptyline HCl [Elavil] 25 mg PO HS 10/30/22 12/16/22 DULoxetine HCL [Cymbalta] 120 mg PO HS 10/30/22 12/16/22 Oxybutynin Chloride [oxyBUTYnin 10 mg PO HS 10/30/22 12/16/22 chloride ER] Previous Rx's Medication Instructions Recorded QUEtiapine [SEROquel] 400 mg PO HS 30 Days tab 06/19/22 Aspirin 81 mg PO DAILY #30 tab 11/01/22 Atorvastatin [Lipitor] 80 mg PO DAILY #30 tab 12/09/22 Clopidogrel [Plavix] 75 mg PO DAILY #30 tab 12/09/22 Pantoprazole [Protonix] 40 mg PO DAILY #30 tab 12/09/22 Cyclobenzaprine [Flexeril] 10 mg PO HS #30 tab 12/23/22 HYDROcodone/APAP 10-325MG [[place] 1 tab PO Q4-6H PRN #32 tab 12/23/22 10-325] Midodrine [ProAmatine] 5 mg PO AC-TID tab 12/23/22 Pregabalin [Lyrica] 150 mg PO TID #30 cap 12/23/22 Sennosides/Docusate Sodium [Senna 1 each PO DAILY #20 capsule 12/23/22 Plus 8.6-50 mg Softgel] ceFAZolin [Kefzol] 2 gm IVP Q8HR #120 each 12/23/22 polyethylene glycoL 3350 [Miralax] 17 gm PO DAILY packet 12/23/22 Allergies Allergy/AdvReac Type Severity Reaction Status Date / Time ciprofloxacin [From Cipro] Allergy Anaphylaxis Verified 03/06/23 23:45 Penicillins Allergy Swelling/Hi Verified 03/06/23 23:45 ves vancomycin Allergy Dyspnea Verified 03/06/23 23:45 ketorolac tromethamine AdvReac Itching Verified 03/06/23 23:45 [From Toradol] NSAIDS (Non-Steroidal AdvReac STOMACH Verified 03/06/23 23:45 Anti-Inflamma ULCER Review of Systems ROS Statement: Those systems with pertinent positive or pertinent negative responses have been documented in the HPI. ROS Other: All systems not noted in ROS Statement are negative. Constitutional: Denies: fever, weakness Eyes: Denies: vision change Respiratory: Denies: cough, dyspnea Cardiovascular: Denies: chest pain, edema, syncope Gastrointestinal: Denies: abdominal pain, vomiting, diarrhea Genitourinary: Denies: dysuria, hematuria Musculoskeletal: Reports: back pain Skin: Denies: rash Neurological: Reports: headache. Denies: weakness, numbness, paresthesias Past Medical History Past Medical History: Coronary Artery Disease (CAD), Chest Pain / Angina, Fibromyalgia, Hyperlipidemia, Hypertension, Myocardial Infarction (MA), Osteoarthritis (OA), Thyroid Disorder Additional Past Medical History / Comment(s): interstitial cystitis; constipation, gallstones, LUMBAR BACK PAIN Last Myocardial Infarction Date:: 2013 History of Any Multi-Drug Resistant Organisms: None Reported Past Surgical History: Back Surgery, Bladder Surgery, Breast Surgery, Cholecystectomy, Heart Catheterization With Stent, Hysterectomy, Orthopedic Surgery Additional Past Surgical History / Comment(s): bladder stimulator, neck surgery, total 6 cardiac stents - back fusion, neck fusion, jeff bunionectomy, revision of back surgery screws, cage and rods were suppose to be placed but DR Nova doesn't see them on imaging. Past Anesthesia/Blood Transfusion Reactions: No Reported Reaction Date of Last Stent Placement:: approx 3 yrs ago Past Psychological History: Anxiety, Bipolar, Depression, Panic Disorder Smoking Status: Former smoker Past Alcohol Use History: None Reported Past Drug Use History: None Reported - Past Family History Father Family Medical History: Cancer General Exam Limitations: no limitations General appearance: alert, in no apparent distress Head exam: Present: normocephalic, other (Scalp contusion. No evident deformity) Eye exam: Present: normal appearance, PERRL, EOMI. Absent: scleral icterus, conjunctival injection Neck exam: Present: normal inspection, full ROM. Absent: tenderness, meningismus Respiratory exam: Present: normal lung sounds bilaterally. Absent: respiratory distress, wheezes, rales, rhonchi, stridor Cardiovascular Exam: Present: regular rate, normal rhythm, normal heart sounds. Absent: systolic murmur, diastolic murmur, rubs, gallop GI/Abdominal exam: Present: soft. Absent: distended, tenderness, guarding, rebound, rigid, mass Extremities exam: Present: normal inspection, normal capillary refill. Absent: pedal edema, calf tenderness Back exam: Present: vertebral tenderness (Lumbar). Absent: CVA tenderness (R), CVA tenderness (L) Neurological exam: Present: alert, oriented X3. Absent: motor sensory deficit Skin exam: Present: warm, dry, intact, normal color. Absent: rash Course Vital Signs 03/06/23 03/07/23 23:41 06:12 Temperature 98.5 F Pulse Rate 90 55 L Respiratory 20 16 Rate Blood Pressure 119/75 112/53 O2 Sat by Pulse 97 97 Oximetry Medical Decision Making - Medical Decision Making The patient had computed tomography scan of the brain which I interpreted as b eing negative for acute bony injury and acute intracranial hemorrhage. The patient had CT scan of the lumbar spine which I interpreted as being negative for acute fracture. This patient is a 62-year-old woman here to have evaluation of low back pain that was worse after fall down stairs. The exam does not reveal red flag signs. The computed tomography scan not showing acute trauma. The patient is feeling better after medication here in the department. She feels stable to have follow-up. Discussed appropriate further care and follow-up as well as return parameters Was pt. sent in by a medical professional or institution (ALIYA Fuller, [employer], urgent care, hospital, or fpc...) When possible be specific @ -[No] Did you speak to anyone other than the patient for history (EMS, parent, family, police, friend...)? What history was obtained from this source @ -[No] Did you review nursing and triage notes (agree or disagree)? Why? @ -[I reviewed and agree with nursing and triage notes] Were old charts reviewed (outside hosp., previous admission, EMS record, old EKG, old radiological studies, urgent care reports/EKG's, fpc records)? Report findings @ -[No old charts were reviewed] Differential Diagnosis (chest pain, altered mental status, abdominal pain women, abdominal pain men, vaginal bleeding, weakness, fever, dyspnea, syncope, headache, dizziness, GI bleed, back pain, seizure, CVA, palpatations, mental health, musculoskeletal)? @ -[Differential Back Pain: Strain, zoster, cauda equina syndrome, epidural abscess, vertebral osteomyelitis, discitis, fracture, subluxation, disc herniation, DJD, spinal stenosis, dissection, AAA, pancreatitis, peptic ulcer disease, pyelonephritis, kidney stone, this is not meant to be an all-inclusive list. EKG interpreted by me (3pts min.). @ -[ X-rays interpreted by me (1pt min.). @ -[None done] CT interpreted by me (1pt min.). @ -[As above U/S interpreted by me (1pt. min.). @ -[None done] What testing was considered but not performed or refused? (CT, X-rays, U/S, labs)? Why? @ -[None] What meds were considered but not given or refused? Why? @ -[None] Did you discuss the management of the patient with other professionals (professionals i.e. ALIYA Fuller, [employer], lab, RT, psych nurse, director social service, assistant professor of biology, teacher, protection officer, ed case manager)? Give summary @ -[No] Was smoking cessation discussed for >3mins.? @ -[No] Was critical care preformed (if so, how long)? @ -[No] Were there social determinants of health that impacted care today? How? (Homelessness, low income, unemployed, alcoholism, drug addiction, transportation, low edu. Level, literacy, decrease access to med. care, fdc, rehab)? @ -[No] Was there de-escalation of care discussed even if they declined (Discuss DNR or withdrawal of care, Hospice)? DNR status @ -[No] What co-morbidities impacted this encounter? (DM, HTN, Smoking, COPD, CAD, Cancer, CVA, ARF, Chemo, Hep., AIDS, mental health diagnosis, sleep apnea, morbid obesity)? @ -[None] Was patient admitted / discharged? Hospital course, mention meds given and route, prescriptions, significant lab abnormalities, going to OR and other pertinent info. @ -[Discharged Undiagnosed new problem with uncertain prognosis? @ -[No] Drug Therapy requiring intensive monitoring for toxicity (Heparin, Nitro, Insulin, Cardizem)? @ -[No] Were any procedures done? @ -[No] Diagnosis/symptom? @ -[Acute fall injury Acute low back pain Closed head injury Acute, or Chronic, or Acute on Chronic? @ -[default] Uncomplicated (without systemic symptoms) or Complicated (systemic symptoms)? @ -[Uncomplicated Side effects of treatment? @ -[No] Exacerbation, Progression, or Severe Exacerbation? @ -[No] Poses a threat to life or bodily function? How? (Chest pain, USA, MA, pneumonia, PE, COPD, DKA, ARF, appy, cholecystitis, CVA, Diverticulitis, Homicidal, Suicidal, threat to staff... and all critical care pts) @ -[No] - Lab Data Result diagrams: 03/07/23 02:45 03/07/23 03:30 Lab Results 03/07/23 03/07/23 Range/Units 02:45 03:30 WBC 8.6 (3.8-10.6) k/uL RBC 4.35 (3.80-5.40) m/uL Hgb 13.3 (11.4-16.0) gm/dL Hct 41.7 (34.0-46.0) % MCV 95.8 (80.0-100.0) fL MCH 30.6 (25.0-35.0) pg MCHC 31.9 (31.0-37.0) g/dL RDW 14.9 (11.5-15.5) % Plt Count 218 (150-450) k/uL MPV 8.3 Neutrophils % 65 % Lymphocytes % 24 % Monocytes % 6 % Eosinophils % 3 % Basophils % 0 % Neutrophils # 5.5 (1.3-7.7) k/uL Lymphocytes # 2.1 (1.0-4.8) k/uL Monocytes # 0.5 (0-1.0) k/uL Eosinophils # 0.3 (0-0.7) k/uL Basophils # 0.0 (0-0.2) k/uL Sodium 139 (137-145) mmol/L Potassium 3.2 L (3.5-5.1) mmol/L Chloride 104 (98-107) mmol/L Carbon Dioxide 24 (22-30) mmol/L Anion Gap 11 mmol/L BUN 11 (7-17) mg/dL Creatinine 0.61 (0.52-1.04) mg/dL Est GFR (CKD-EPI)AfAm >90 (>60 ml/min/1.73 sqM) Est GFR (CKD-EPI)NonAf >90 (>60 ml/min/1.73 sqM) Glucose 136 H (74-99) mg/dL Calcium 8.6 (8.4-10.2) mg/dL C-Reactive Protein 1.6 H (<1.0) mg/dL Disposition Clinical Impression: Fall Disposition: HOME SELF-CARE Condition: Good Instructions (If sedation given, give patient instructions): Fall Prevention (ED) Is patient prescribed a controlled substance at d/c from ED?: No Referrals: Nathanael Nogueira MD [Primary Care Provider] - 1-2 days Nima Nova DO [Doctor of Osteopathic Medicine] - 1-2 days
[2023-03-07 06:32] VITALS: BP 112/53; PULSE 55; RESP 16
== END 2023-03-07 06:32 | disposition home or self-care (01) ==
LOC: EC 23:23
DX: S00.03XA Contusion of scalp, initial encounter (principal); M54.50 Low back pain, unspecified; I10 Essential (primary) hypertension; I25.10 Atherosclerotic heart disease of native coronary artery without angina pectoris; I25.2 Old myocardial infarction; F31.9 Bipolar disorder, unspecified; F41.9 Anxiety disorder, unspecified; E07.9 Disorder of thyroid, unspecified; Z79.890 Hormone replacement therapy; Z79.899 Other long term (current) drug therapy; Z88.0 Allergy status to penicillin; Z88.1 Allergy status to other antibiotic agents; Z88.6 Allergy status to analgesic agent; Z87.891 Personal history of nicotine dependence; Z95.5 Presence of coronary angioplasty implant and graft; Z90.49 Acquired absence of other specified parts of digestive tract; W10.9XXA Fall (on) (from) unspecified stairs and steps, initial encounter; Y92.89 Other specified places as the place of occurrence of the external cause
CPT/HCPCS: 36415; 80048; 85025; 86140; 72131; 70450; 99285; 96372 ×2; J2270

== ENCOUNTER 2023-09-08 20:29 | Emergency (ER) | payer MEDICARE, OTHER ==
[2023-09-08] MEDS ORDERED: SODIUM CHLORIDE 0.9% 1,000 ML IV ONE (20:56)
[2023-09-08] MEDS ORDERED: LORazepam 2 MG/ML INJ IV STA (20:57)
--- NOTE | 2023-09-08 20:58 | ED ---
Altered Mental Status HPI - General Chief Complaint: Altered Mental Status Stated Complaint: AMS Time Seen by Provider: 09/08/23 20:49 Source: patient, family, RN notes reviewed Mode of arrival: ambulatory Limitations: no limitations - History of Present Illness Initial Comments: This is a 63-year-old female who presents to the emergency department for a ltered mental status. She had been on Percocet 10mg daily for years and it had been becoming slightly less effective, and instead of increasing this, they changed her medication to Morphine ER 30mg twice daily. Her daughter states that since changing medications, she has been altered and not acting like herself. She seems to be acting very confused and is very anxious. She has received morphine in the hospital before, and states that she responded similarly, but not as severe. Her daughter believes that this is likely related to the medication changes. Patient very tearful on examination. MD Complaint: altered mental status, confusion - Related Data Home Medications Medication Instructions Recorded Confirmed Metoprolol Succinate (ER) [Toprol 25 mg PO HS 07/10/21 12/16/22 XL] Levothyroxine Sodium [Synthroid] 125 mcg PO DAILY 06/18/22 12/16/22 Amitriptyline HCl [Elavil] 25 mg PO HS 10/30/22 12/16/22 DULoxetine HCL [Cymbalta] 120 mg PO HS 10/30/22 12/16/22 Oxybutynin Chloride [oxyBUTYnin 10 mg PO HS 10/30/22 12/16/22 chloride ER] Previous Rx's Medication Instructions Recorded QUEtiapine [SEROquel] 400 mg PO HS 30 Days tab 06/19/22 Aspirin 81 mg PO DAILY #30 tab 11/01/22 Atorvastatin [Lipitor] 80 mg PO DAILY #30 tab 12/09/22 Clopidogrel [Plavix] 75 mg PO DAILY #30 tab 12/09/22 Pantoprazole [Protonix] 40 mg PO DAILY #30 tab 12/09/22 Cyclobenzaprine [Flexeril] 10 mg PO HS #30 tab 12/23/22 HYDROcodone/APAP 10-325MG [Pettus 1 tab PO Q4-6H PRN #32 tab 12/23/22 10-325] Midodrine [ProAmatine] 5 mg PO AC-TID tab 12/23/22 Pregabalin [Lyrica] 150 mg PO TID #30 cap 12/23/22 Sennosides/Docusate Sodium [Senna 1 each PO DAILY #20 capsule 12/23/22 Plus 8.6-50 mg Softgel] ceFAZolin [Kefzol] 2 gm IVP Q8HR #120 each 12/23/22 polyethylene glycoL 3350 [Miralax] 17 gm PO DAILY packet 12/23/22 LORazepam [Ativan] 1 mg PO TID PRN 3 Days #9 tab 09/08/23 Allergies Allergy/AdvReac Type Severity Reaction Status Date / Time ciprofloxacin [From Cipro] Allergy Anaphylaxis Verified 09/08/23 20:39 Penicillins Allergy Swelling/Hi Verified 09/08/23 20:39 ves vancomycin Allergy Dyspnea Verified 09/08/23 20:39 ketorolac tromethamine AdvReac Itching Verified 09/08/23 20:39 [From Toradol] NSAIDS (Non-Steroidal AdvReac STOMACH Verified 09/08/23 20:39 Anti-Inflamma ULCER Review of Systems ROS Statement: Those systems with pertinent positive or pertinent negative responses have been documented in the HPI. ROS Other: All systems not noted in ROS Statement are negative. Past Medical History Past Medical History: Coronary Artery Disease (CAD), Chest Pain / Angina, Fibromyalgia, Hyperlipidemia, Hypertension, Myocardial Infarction (DC), Osteoarthritis (OA), Thyroid Disorder Additional Past Medical History / Comment(s): interstitial cystitis; constipatio n, gallstones, LUMBAR BACK PAIN Last Myocardial Infarction Date:: 2013 History of Any Multi-Drug Resistant Organisms: None Reported Past Surgical History: Back Surgery, Bladder Surgery, Breast Surgery, Cholecystectomy, Heart Catheterization With Stent, Hysterectomy, Orthopedic Surgery Additional Past Surgical History / Comment(s): bladder stimulator, neck surgery, total 6 cardiac stents - back fusion, neck fusion, jeff bunionectomy, revision of back surgery screws, cage and rods were suppose to be placed but DR Nova doesn't see them on imaging. Past Anesthesia/Blood Transfusion Reactions: No Reported Reaction Date of Last Stent Placement:: approx 3 yrs ago Past Psychological History: Anxiety, Bipolar, Depression, Panic Disorder Smoking Status: Former smoker Past Alcohol Use History: None Reported Past Drug Use History: None Reported - Past Family History Father Family Medical History: Cancer General Exam Limitations: no limitations General appearance: alert, anxious Head exam: Present: atraumatic, normocephalic, normal inspection Eye exam: Present: normal appearance, PERRL, EOMI. Absent: scleral icterus, conjunctival injection, periorbital swelling Respiratory exam: Present: normal lung sounds bilaterally. Absent: respiratory distress, wheezes, rales, rhonchi, stridor Cardiovascular Exam: Present: regular rate, normal rhythm, normal heart sounds. Absent: systolic murmur, diastolic murmur, rubs, gallop, clicks Neurological exam: Present: alert, oriented X3, CN II-XII intact Psychiatric exam: Present: normal mood, anxious Skin exam: Present: warm, dry, intact, normal color. Absent: rash Course Vital Signs 09/08/23 09/08/23 09/08/23 20:35 21:37 22:45 Temperature 99.7 F H 97.9 F Pulse Rate 99 82 92 Respiratory 18 16 18 Rate Blood Pressure 127/78 138/92 131/82 O2 Sat by Pulse 95 98 98 Oximetry Medical Decision Making - Medical Decision Making This is a 63-year-old female who presents to the emergency department for altered mental status. Was pt. sent in by a medical professional or institution? @ -No Did you speak to anyone other than the patient for history? @ -No Did you review nursing and triage notes? @ -Yes, and I agree, it is accurate with regards to the patient's symptoms. Were old charts reviewed? @ -No Differential Diagnosis? @ -Differential Altered Mental Status: Hypoglycemia, DKA, hypercapnia, ETOH, overdose, CO poisoning, trauma, myxedema coma, HTN encephalopathy, infection, encephalitis, psychosis, intercranial hemorrhage, hepatic encephalopathy, meningitis, CVA, this is not meant to be an all-inclusive list EKG interpreted by me (3pts min.)? @ -EKG interpreted by me demonstrating the following: Sinus rhythm. Ventricular rate 88 beats per minute, MT interval 172 ms, QRS duration 114 ms, QTc 412 ms. X-rays interpreted by me (1pt min.)? @ -Not obtained CT interpreted by me (1pt min.)? @ -Not obtained U/S interpreted by me (1pt. min.)? @ -Not obtained What testing was considered but not performed? (CT, X-rays, U/S, labs)? Why? @ -None What meds were considered but not given? Why? @ -None Did you discuss the management of the patient with other professionals? @ -No Did you reconcile home meds? @ -No Was smoking cessation discussed for >3mins.? @ -I discussed smoking cessation for greater than 3 minutes. The risk of s moking were discussed with the patient including but not limited to risks of cancer, stroke, coronary artery disease and COPD. Also discussed with patient were multiple methods of quitting smoking. Lastly we discussed the financial cost of smoking. Was critical care preformed (if so, how long)? @ -No Were there social determinants of health that impacted care today? How? (Homelessness, low income, unemployed, alcoholism, drug addiction, t ransportation, low edu. Level, literacy, decrease access to med. care, longterm, rehab)? @ -No Was there de-escalation of care discussed even if they declined? (Discuss DNR or withdrawal of care, Hospice)? @ -No What co-morbidities impacted this encounter? (DM, HTN, Smoking, COPD, CAD, Cancer, CVA, Hep., AIDS, mental health diagnosis, sleep apnea, morbid obesity)? @ -Fibromyalgia Was patient admitted / discharged? @ -Discharged. Patient was alert and oriented 4, however she was making statements that her daughter said were not true and seemed somewhat confused. She had no neurological deficits on exam. Lab work obtained and found to be unremarkable. Urinalysis negative for signs of infection. Patient treated with IV fluids and Ativan, and had significant improvement in symptoms. Her daughter states that she seemed like she was back to her normal self afterwards. Discussed that the change in medication from the Percocet to Morphine is definitely a possible cause of her symptoms. Recommended she discontinue the morphine and go back to the Percocet, 10 mg, which she has plenty of at home. I did give her a prescription for a 3 day course of Ativan to be used sparingly and as needed in the event she has continuation of these current symptoms. Ricardo huynh advised close follow-up with her primary care provider. Undiagnosed new problem with uncertain prognosis? @ -None Drug Therapy requiring intensive monitoring for toxicity (Heparin, Nitro, Insulin, Cardizem)? @ -None Were any procedures done? @ -None Diagnosis/symptom? @ -Altered mental status, anxiety Acute, or Chronic, or Acute on Chronic? @ -Acute Uncomplicated (without systemic symptoms) or Complicated (systemic symptoms)? @ -Uncomplicated Side effects of treatment? @ -None Exacerbation, Progression, or Severe Exacerbation] @ -Not applicable Poses a threat to life or bodily function? @ -No Return precautions reviewed in depth, the patient is instructed to return to the emergency department with any new, worsening, or concerning symptoms. Patient verbalized understanding. This case was discussed in detail with the attending ED physician, Dr. Lenz. Presentation, findings, and treatment plan discussed in detail as well. - Lab Data Result diagrams: 09/08/23 21:08 09/08/23 21:08 Lab Results 09/08/23 09/08/23 09/08/23 Range/Units 21:08 21:08 21:08 WBC 9.4 (3.8-10.6) k/uL RBC 4.57 (3.80-5.40) m/uL Hgb 15.2 (11.4-16.0) gm/dL Hct 46.5 H (34.0-46.0) % MCV 101.7 H (80.0-100.0) fL MCH 33.1 (25.0-35.0) pg MCHC 32.6 (31.0-37.0) g/dL RDW 12.8 (11.5-15.5) % Plt Count 170 (150-450) k/uL MPV 8.2 Neutrophils % 78 % Lymphocytes % 15 % Monocytes % 5 % Eosinophils % 1 % Basophils % 0 % Neutrophils # 7.3 (1.3-7.7) k/uL Lymphocytes # 1.4 (1.0-4.8) k/uL Monocytes # 0.5 (0-1.0) k/uL Eosinophils # 0.1 (0-0.7) k/uL Basophils # 0.0 (0-0.2) k/uL Macrocytosis Slight Sodium 138 (137-145) mmol/L Potassium 3.3 L (3.5-5.1) mmol/L Chloride 102 (98-107) mmol/L Carbon Dioxide 23 (22-30) mmol/L Anion Gap 13 mmol/L BUN 10 (7-17) mg/dL Creatinine 0.71 (0.52-1.04) mg/dL Est GFR (CKD-EPI)AfAm >90 (>60 ml/min/1.73 sqM) Est GFR (CKD-EPI)NonAf >90 (>60 ml/min/1.73 sqM) Glucose 134 H (74-99) mg/dL POC Glucose (mg/dL) (70-110) mg/dL POC Glu Developer Programmer Analyst ID Lactic Ac Sepsis Rflx Plasma Lactic Acid Olu 2.3 H* (0.7-2.0) mmol/L Calcium 9.2 (8.4-10.2) mg/dL Total Bilirubin 0.5 (0.2-1.3) mg/dL AST 37 H (14-36) U/L ALT 22 (4-34) U/L Alkaline Phosphatase 97 (38-126) U/L Total Protein 7.2 (6.3-8.2) g/dL Albumin 4.3 (3.5-5.0) g/dL TSH 1.520 (0.465-4.680) mIU/L Urine Color Urine Appearance (Clear) Urine pH (5.0-8.0) Ur Specific Shelby (1.001-1.035) Urine Protein (Negative) Urine Glucose (UA) (Negative) Urine Ketones (Negative) Urine Blood (Negative) Urine Nitrite (Negative) Urine Bilirubin (Negative) Urine Urobilinogen (<2.0) mg/dL Ur Leukocyte Esterase (Negative) Urine WBC (0-5) /hpf Ur Squamous Epith Cells (0-4) /hpf Urine Bacteria (None) /hpf Urine Opiates Screen (NotDetected) Ur Oxycodone Screen (NotDetected) Urine Methadone Screen (NotDetected) Ur Propoxyphene Screen (NotDetected) Ur Barbiturates Screen (NotDetected) U Tricyclic Antidepress (NotDetected) Ur Phencyclidine Scrn (NotDetected) Ur Amphetamines Screen (NotDetected) U Methamphetamines Scrn (NotDetected) U Benzodiazepines Scrn (NotDetected) Urine Cocaine Screen (NotDetected) U Marijuana (THC) Screen (NotDetected) 09/08/23 09/08/23 09/08/23 Range/Units 21:11 21:11 21:13 WBC (3.8-10.6) k/uL RBC (3.80-5.40) m/uL Hgb (11.4-16.0) gm/dL Hct (34.0-46.0) % MCV (80.0-100.0) fL MCH (25.0-35.0) pg MCHC (31.0-37.0) g/dL RDW (11.5-15.5) % Plt Count (150-450) k/uL MPV Neutrophils % % Lymphocytes % % Monocytes % % Eosinophils % % Basophils % % Neutrophils # (1.3-7.7) k/uL Lymphocytes # (1.0-4.8) k/uL Monocytes # (0-1.0) k/uL Eosinophils # (0-0.7) k/uL Basophils # (0-0.2) k/uL Macrocytosis Sodium (137-145) mmol/L Potassium (3.5-5.1) mmol/L Chloride (98-107) mmol/L Carbon Dioxide (22-30) mmol/L Anion Gap mmol/L BUN (7-17) mg/dL Creatinine (0.52-1.04) mg/dL Est GFR (CKD-EPI)AfAm (>60 ml/min/1.73 sqM) Est GFR (CKD-EPI)NonAf (>60 ml/min/1.73 sqM) Glucose (74-99) mg/dL POC Glucose (mg/dL) 138 H (70-110) mg/dL POC Glu Developer Programmer Analyst ID Mj Cummings Lactic Ac Sepsis Rflx Plasma Lactic Acid Olu (0.7-2.0) mmol/L Calcium (8.4-10.2) mg/dL Total Bilirubin (0.2-1.3) mg/dL AST (14-36) U/L ALT (4-34) U/L Alkaline Phosphatase (38-126) U/L Total Protein (6.3-8.2) g/dL Albumin (3.5-5.0) g/dL TSH (0.465-4.680) mIU/L Urine Color Light Yellow Urine Appearance Cloudy H (Clear) Urine pH 7.0 (5.0-8.0) Ur Specific Shelby 1.003 (1.001-1.035) Urine Protein Negative (Negative) Urine Glucose (UA) Negative (Negative) Urine Ketones Negative (Negative) Urine Blood Negative (Negative) Urine Nitrite Negative (Negative) Urine Bilirubin Negative (Negative) Urine Urobilinogen <2.0 (<2.0) mg/dL Ur Leukocyte Esterase Negative (Negative) Urine WBC 2 (0-5) /hpf Ur Squamous Epith Cells 4 (0-4) /hpf Urine Bacteria Few H (None) /hpf Urine Opiates Screen Detected H (NotDetected) Ur Oxycodone Screen Detected H (NotDetected) Urine Methadone Screen Not Detected (NotDetected) Ur Propoxyphene Screen Not Detected (NotDetected) Ur Barbiturates Screen Not Detected (NotDetected) U Tricyclic Antidepress Detected H (NotDetected) Ur Phencyclidine Scrn Not Detected (NotDetected) Ur Amphetamines Screen Not Detected (NotDetected) U Methamphetamines Scrn Not Detected (NotDetected) U Benzodiazepines Scrn Not Detected (NotDetected) Urine Cocaine Screen Not Detected (NotDetected) U Marijuana (THC) Screen Detected H (NotDetected) 09/08/23 Range/Units 21:42 WBC (3.8-10.6) k/uL RBC (3.80-5.40) m/uL Hgb (11.4-16.0) gm/dL Hct (34.0-46.0) % MCV (80.0-100.0) fL MCH (25.0-35.0) pg MCHC (31.0-37.0) g/dL RDW (11.5-15.5) % Plt Count (150-450) k/uL MPV Neutrophils % % Lymphocytes % % Monocytes % % Eosinophils % % Basophils % % Neutrophils # (1.3-7.7) k/uL Lymphocytes # (1.0-4.8) k/uL Monocytes # (0-1.0) k/uL Eosinophils # (0-0.7) k/uL Basophils # (0-0.2) k/uL Macrocytosis Sodium (137-145) mmol/L Potassium (3.5-5.1) mmol/L Chloride (98-107) mmol/L Carbon Dioxide (22-30) mmol/L Anion Gap mmol/L BUN (7-17) mg/dL Creatinine (0.52-1.04) mg/dL Est GFR (CKD-EPI)AfAm (>60 ml/min/1.73 sqM) Est GFR (CKD-EPI)NonAf (>60 ml/min/1.73 sqM) Glucose (74-99) mg/dL POC Glucose (mg/dL) (70-110) mg/dL POC Glu Developer Programmer Analyst ID Lactic Ac Sepsis Rflx Y Plasma Lactic Acid Olu (0.7-2.0) mmol/L Calcium (8.4-10.2) mg/dL Total Bilirubin (0.2-1.3) mg/dL AST (14-36) U/L ALT (4-34) U/L Alkaline Phosphatase (38-126) U/L Total Protein (6.3-8.2) g/dL Albumin (3.5-5.0) g/dL TSH (0.465-4.680) mIU/L Urine Color Urine Appearance (Clear) Urine pH (5.0-8.0) Ur Specific Shelby (1.001-1.035) Urine Protein (Negative) Urine Glucose (UA) (Negative) Urine Ketones (Negative) Urine Blood (Negative) Urine Nitrite (Negative) Urine Bilirubin (Negative) Urine Urobilinogen (<2.0) mg/dL Ur Leukocyte Esterase (Negative) Urine WBC (0-5) /hpf Ur Squamous Epith Cells (0-4) /hpf Urine Bacteria (None) /hpf Urine Opiates Screen (NotDetected) Ur Oxycodone Screen (NotDetected) Urine Methadone Screen (NotDetected) Ur Propoxyphene Screen (NotDetected) Ur Barbiturates Screen (NotDetected) U Tricyclic Antidepress (NotDetected) Ur Phencyclidine Scrn (NotDetected) Ur Amphetamines Screen (NotDetected) U Methamphetamines Scrn (NotDetected) U Benzodiazepines Scrn (NotDetected) Urine Cocaine Screen (NotDetected) U Marijuana (THC) Screen (NotDetected) Disposition Clinical Impression: Altered mental status, Anxiety, Nicotine dependence Disposition: HOME SELF-CARE Instructions (If sedation given, give patient instructions): Altered Mental Status (ED) Additional Instructions: Return to the emergency department with any new, worsening, or concerning symptoms. Stop taking the morphine and go back to the Percocet for pain manage ment. You can take the Ativan up to 3 times daily as needed for anxiety. Follow up with your primary care provider in 1-2 days. Prescriptions: LORazepam [Ativan] 1 mg PO TID PRN 3 Days #9 tab PRN Reason: Anxiety Is patient prescribed a controlled substance at d/c from ED?: Yes When asked, does pt state using other controlled substances?: Yes If prescribed controlled substance>3 days was MAPS reviewed?: Prescribed <3 Days Referrals: Nathanael Nogueira MD [Primary Care Provider] - 1-2 days
[2023-09-08 21:14] LABS: Glucose,Whole Blood 138 mg/dL (70-110)
[2023-09-08 21:28] LABS: Basophils % (A) 0 %; Eosinophils # (A) 0.1 k/uL (0-0.7); Eosinophils % (A) 1 %; HCT 46.5 % (34.0-46.0); HGB 15.2 gm/dL (11.4-16.0); Lymphocytes # (A) 1.4 k/uL (1.0-4.8); Lymphocytes % (A) 15 %; MCH 33.1 pg (25.0-35.0); MCHC 32.6 g/dL (31.0-37.0); MCV 101.7 fL (80.0-100.0); Macrocytosis Slight; Mean Platelet Volume 8.2; Monocytes # (A) 0.5 k/uL (0-1.0); Monocytes % (A) 5 %; Neutrophils # (A) 7.3 k/uL (1.3-7.7); Neutrophils % (A) 78 %; Platelet Count 170 k/uL (150-450); RBC 4.57 m/uL (3.80-5.40); RDW 12.8 % (11.5-15.5); WBC 9.4 k/uL (3.8-10.6)
[2023-09-08 21:35] LABS: ALT 22 U/L (4-34); AST 37 U/L (14-36); African American GFR (CKD) >90 (>60 ml/min/1.73 sqM); Albumin 4.3 g/dL (3.5-5.0); Alkaline Phosphatase 97 U/L (38-126); Anion Gap 13 mmol/L; Blood Urea Nitrogen 10 mg/dL (7-17); Calcium 9.2 mg/dL (8.4-10.2); Carbon Dioxide 23 mmol/L (22-30); Chloride 102 mmol/L (98-107); Glucose 134 mg/dL (74-99); Non-African American GFR(CKD) >90 (>60 ml/min/1.73 sqM); Potassium 3.3 mmol/L (3.5-5.1); Sodium 138 mmol/L (137-145); Total Bilirubin 0.5 mg/dL (0.2-1.3); Total Protein 7.2 g/dL (6.3-8.2)
[2023-09-08 22:02] LABS: Appearance,Urine Cloudy (Clear); Color,Urine Light Yellow
[2023-09-08 22:03] LABS: Bilirubin,Urine Negative (Negative); Blood,Urine Negative (Negative); Glucose,Urine (UA) Negative (Negative); Ketones,Urine Negative (Negative); Leukocyte Esterase,Urine Negative (Negative); Nitrite,Urine Negative (Negative); Protein,Urine Negative (Negative); Specific Gravity,Urine 1.003 (1.001-1.035); Urobilinogen,Urine <2.0 mg/dL (<2.0)
[2023-09-08 22:06] LABS: Amphetamine Screen,Urine Not Detected (NotDetected); Barbiturate Screen,Urine Not Detected (NotDetected); Benzodiazepines Screen,Urine Not Detected (NotDetected); Cocaine Screen,Urine Not Detected (NotDetected); Methadone Screen, Urine Not Detected (NotDetected); Opiate Screen,Urine Detected (NotDetected); Oxycodone Screen, Urine Detected (NotDetected); Phencyclidine Screen,Urine Not Detected (NotDetected); Tricyclic Antidepressant,Urine Detected (NotDetected); Urn Cannabinoid Scrn Detected (NotDetected)
[2023-09-08 22:07] LABS: Bacteria,Urine Few /hpf; Squamous Epithelial Cell,Urine 4 /hpf (0-4); WBC,Urine 2 /hpf (0-5)
[2023-09-08] MEDS ORDERED: oxyCODONE-APAP 10-325MG 1 EACH TAB PO ONE (22:29)
[2023-09-08] MEDS ORDERED: LORazepam 1 MG TAB PO STA (22:30)
[2023-09-08 23:01] VITALS: BP 131/82; PULSE 92; RESP 18; TEMP 97.9
== END 2023-09-08 22:44 | disposition home or self-care (01) ==
LOC: EC 20:29
DX: R41.82 Altered mental status, unspecified (principal); F41.9 Anxiety disorder, unspecified; F17.200 Nicotine dependence, unspecified, uncomplicated; I25.10 Atherosclerotic heart disease of native coronary artery without angina pectoris; I10 Essential (primary) hypertension; I25.2 Old myocardial infarction; E07.9 Disorder of thyroid, unspecified; Z79.890 Hormone replacement therapy; Z79.899 Other long term (current) drug therapy; Z86.59 Personal history of other mental and behavioral disorders; Z88.0 Allergy status to penicillin; Z88.1 Allergy status to other antibiotic agents; Z88.6 Allergy status to analgesic agent; Z95.5 Presence of coronary angioplasty implant and graft
CPT/HCPCS: 36415; 93005; 80053; 84443; 83605; 85025; 81001; 80306; 87086; 99285; 96374; 96361; J2060

== ENCOUNTER 2023-10-15 08:00 | Day surgery (SDC) | payer MEDICARE, OTHER ==
[2023-10-15] MEDS ORDERED: diazePAM 5 MG TAB PO STA (09:34)
[2023-10-15 11:41] VITALS: TEMP 98
[2023-10-15 15:18] VITALS: BP 150/78; PULSE 51; RESP 16
--- NOTE | 2023-10-15 19:41 | FL ---
EXAMINATION TYPE: FL myelogram lumbosacral DATE OF EXAM: 10/15/2023 COMPARISON: Correlation CT 03/07/2023 HISTORY: 63-year-old female and 5 4.9, back pain, L5 4.5, low back pain Total fluoroscopy time: 0.57 minutes. Total images: 6. Total DAP: 10 mGycm2. Informed consent was obtained and all the patient's questions were answered. Post surgical change L3-S1 posterior fusion is demonstrated along with lateral osseous fusion and fallon inectomy. Despite the laminectomy, we note prominent bone densities projecting in this region and we had difficulty localizing a definite entry site. Attempts were first made with a 22-gauge spinal need le at the L4 level unsuccessfully. Subsequent attempt at the L5 level with successful and a total 12 mL Isovue-M 200 contrast material was injected into the subarachnoid space. Standard sterile technique was utilized as well as appropriate local anesthesia 1% Lidocaine. Spina l needle was introduced into the thecal sac under fluoroscopic guidance The needle was removed, hemostasis obtained, and a dressing placed. The patient tolerated the procedure well and left the department in stable condition. CT myelography is to follow. IMPRESSION: Lumbar myelogram for CT (with injection successful at the L5 level).
== END 2023-10-15 15:20 | disposition home or self-care (01) ==
LOC: RADPROMAIN 08:00
PROVIDERS: ATTEND Orthopaedic Surgery
DX: M54.50 Low back pain, unspecified (principal); Z98.1 Arthrodesis status; Z98.890 Other specified postprocedural states; Z88.0 Allergy status to penicillin; Z88.5 Allergy status to narcotic agent; Z88.1 Allergy status to other antibiotic agents
CPT/HCPCS: 62304; 72132; J2001; Q9966

== ENCOUNTER 2023-11-17 18:05 | Emergency (ER) | payer MEDICARE, OTHER ==
--- NOTE | 2023-11-17 19:02 | ED ---
Back Pain HPI - General Chief Complaint: Back Pain/Injury Stated Complaint: severe low back pain Time Seen by Provider: 11/17/23 18:23 Source: patient, EMS, RN notes reviewed, old records reviewed Limitations: no limitations - History of Present Illness Initial Comments: This is a 63-year-old female to the ER for evaluation today. Patient presented for evaluation of back pain severe back pain with history of back pain. Patient does admit to falling 2 days ago. Pain has been persistent since, she is scheduled for back surgical evaluation here in town. No loss of bowel or bladder she is able to ambulate and currently walking in the emergency department MD Complaint: back pain, back injury, fall -: days(s) Similar Symptoms Previously: Yes Place: home Radiation: buttocks Severity: severe Severity scale (1-10): 8 Quality: sharp Consistency: constant Improves With: none Worsens With: none Context: while lifting, turning/twisting, bending Associated Symptoms: denies other symptoms - Related Data Home Medications Medication Instructions Recorded Confirmed Metoprolol Succinate (ER) [Toprol 25 mg PO HS 07/10/21 10/15/23 XL] DULoxetine HCL [Cymbalta] 120 mg PO HS 10/30/22 10/15/23 Oxybutynin Chloride [oxyBUTYnin 10 mg PO HS 10/30/22 10/15/23 chloride ER] Brexpiprazole [Rexulti] 1 mg PO DAILY 10/15/23 10/15/23 Clopidogrel [Plavix] 75 mg PO DAILY 10/15/23 10/15/23 Isosorbide Mononitrate [Isosorbide 60 mg PO HS 10/15/23 10/15/23 Mononitrate ER] Levothyroxine Sodium [Levo-T] 112 mcg PO DAILY 10/15/23 10/15/23 Mirtazapine [Remeron] 15 mg PO HS 10/15/23 10/15/23 Rosuvastatin [Crestor] 10 mg PO HS 10/15/23 10/15/23 oxyCODONE ER [OxyCONTIN] 15 mg PO Q12HR PRN 10/15/23 10/15/23 oxyCODONE-APAP 10-325MG [Percocet 1 tab PO BID PRN 10/15/23 10/15/23 10-325 mg] Previous Rx's Medication Instructions Recorded Pregabalin [Lyrica] 150 mg PO TID #30 cap 12/23/22 Allergies Allergy/AdvReac Type Severity Reaction Status Date / Time ciprofloxacin [From Cipro] Allergy Anaphylaxis Verified 11/17/23 18:30 morphine Allergy Hallucinati Verified 11/17/23 18:30 ons Penicillins Allergy Swelling/Hi Verified 11/17/23 18:30 ves vancomycin Allergy Dyspnea Verified 11/17/23 18:30 ketorolac tromethamine AdvReac Itching Verified 11/17/23 18:30 [From Toradol] NSAIDS (Non-Steroidal AdvReac STOMACH Verified 11/17/23 18:30 Anti-Inflamma ULCER Review of Systems ROS Statement: Those systems with pertinent positive or pertinent negative responses have been documented in the HPI. ROS Other: All systems not noted in ROS Statement are negative. Past Medical History Past Medical History: Coronary Artery Disease (CAD), Chest Pain / Angina, Fibromyalgia, Hyperlipidemia, Hypertension, Myocardial Infarction (MA), Osteoarthritis (OA), Thyroid Disorder Additional Past Medical History / Comment(s): interstitial cystitis; constipation, gallstones, LUMBAR BACK PAIN Last Myocardial Infarction Date:: 2013 History of Any Multi-Drug Resistant Organisms: MRSA Date of last positivie culture/infection: 2022 MDRO Source:: from surgery Past Surgical History: Back Surgery, Bladder Surgery, Breast Surgery, Cholecystectomy, Heart Catheterization With Stent, Hysterectomy, Orthopedic Surgery Additional Past Surgical History / Comment(s): bladder stimulator, neck surgery, total 6 cardiac stents - back fusion, neck fusion, jeff bunionectomy, revision of back surgery screws, cage and rods were suppose to be placed but DR Nova doesn't see them on imaging. Past Anesthesia/Blood Transfusion Reactions: No Reported Reaction Date of Last Stent Placement:: approx 3 yrs ago Past Psychological History: Anxiety, Bipolar, Depression, Panic Disorder Smoking Status: Current every day smoker Past Alcohol Use History: None Reported Past Drug Use History: Marijuana - Past Family History Father Family Medical History: Cancer General Exam Limitations: no limitations General appearance: alert, in no apparent distress Head exam: Present: atraumatic, normocephalic, normal inspection Eye exam: Present: normal appearance, PERRL, EOMI. Absent: scleral icterus, conjunctival injection, periorbital swelling ENT exam: Present: normal exam, mucous membranes moist Neck exam: Present: normal inspection. Absent: tenderness, meningismus, lymphadenopathy Respiratory exam: Present: normal lung sounds bilaterally. Absent: respiratory distress, wheezes, rales, rhonchi, stridor Cardiovascular Exam: Present: regular rate, normal rhythm, normal heart sounds. Absent: systolic murmur, diastolic murmur, rubs, gallop, clicks GI/Abdominal exam: Present: soft, normal bowel sounds. Absent: distended, tenderness, guarding, rebound, rigid Extremities exam: Present: normal inspection, full ROM, normal capillary refill. Absent: tenderness, pedal edema, joint swelling, calf tenderness Back exam: Present: normal inspection Neurological exam: Present: alert, oriented X3, CN II-XII intact Psychiatric exam: Present: normal affect, normal mood Skin exam: Present: warm, dry, intact, normal color. Absent: rash Course Vital Signs 11/17/23 11/17/23 18:24 20:24 Temperature 98.5 F 98.7 F Pulse Rate 70 94 Respiratory 18 20 Rate Blood Pressure 159/84 161/78 O2 Sat by Pulse 95 100 Oximetry - Reevaluation(s) Reevaluation #1: 11/17/23 19:27 Medical records reviewed Reevaluation #2: 11/17/23 19:27 Patient symptoms u have been improved Reevaluation #3: 11/17/23 19:28 Patient informed of results questions answered Reevaluation #4: Was pt. sent in by a medical professional or institution (, PA, RAMP SUPERVISOR, urgent care, hospital, or long-term...) When possible be specific @ -no Did you speak to anyone other than the patient for history (EMS, parent, family, police, friend...)? What history was obtained from this source @ -no Did you review nursing and triage notes (agree or disagree)? Why? @ -agree Are old charts reviewed (outside hosp., previous admission, EMS record, old EKG, old radiological studies, urgent care reports/EKG's, long-term records)? Report findings @ -yes Differential Diagnosis (chest pain, altered mental status, abdominal pain women, abdominal pain men, vaginal bleeding, weakness, fever, dyspnea, syncope, headache, dizziness, GI bleed, back pain, seizure, CVA, palpatations, mental health, musculoskeletal)? @ -prior EKG interpreted by me (3pts min.). @ -yes X-rays interpreted by me (1pt min.). @ -yes negative for acute disease CT interpreted by me (1pt min.). @ -no U/S interpreted by me (1pt. min.). @ -no What testing was considered but not performed or refused? (CT, X-rays, U/S, labs)? Why? @ -none What meds were considered but not given or refused? Why? @ -none Did you discuss the management of the patient with other professionals (professionals i.e. , PA, RAMP SUPERVISOR, lab, RT, psych nurse, social media strategist, ball holder, teacher, coastal/harbor defense officer, immigration case manager)? Give summary @ -no Was smoking cessation discussed for >3mins.? @ -no Was critical care preformed (if so, how long)? @ -no Were there social determinants of health that impacted care today? How? (Homelessness, low income, unemployed, alcoholism, drug addiction, transportation, low edu. Level, literacy, decrease access to med. care, skilled nursing, rehab)? @ -none Was there de-escalation of care discussed even if they declined (Discuss DNR or withdrawal of care, Hospice)? DNR status @ -no What co-morbidities impacted this encounter? (DM, HTN, Smoking, COPD, CAD, Cancer, CVA, ARF, Chemo, Hep., AIDS, mental health diagnosis, sleep apnea, morbid obesity)? @ -none Was patient admitted / discharged? Hospital course, mention meds given and route, prescriptions, significant lab abnormalities, going to OR and other pertinent info. @ - 63 female to ER for evaluation of severe back pain acute on chronic back pain with adequate pain control currently. Patient can be discharged home Discharge Undiagnosed new problem with uncertain prognosis? @ -no Drug Therapy requiring intensive monitoring for toxicity (Heparin, Nitro, Insulin, Cardizem)? @ -no Were any procedures done? @ -no Diagnosis/symptom? @ -Back pain Acute, or Chronic, or Acute on Chronic? @ -Acute Uncomplicated (without systemic symptoms) or Complicated (systemic symptoms)? @ -Complicated Side effects of treatment? @ -no Exacerbation, Progression, or Severe Exacerbation? @ -exacerbation Poses a threat to life or bodily function? How? (Chest pain, USA, MA, pneumonia, PE, COPD, DKA, ARF, appy, cholecystitis, CVA, Diverticulitis, Homicidal, Suicidal, threat to staff... and all critical care pts) @ -yes with severe back pain Reevaluation #5: Differential Back Pain: Strain, zoster, cauda equina syndrome, epidural abscess, vertebral osteomyelitis, discitis, fracture, subluxation, disc herniation, DJD, spinal stenosis, dissection, AAA, pancreatitis, peptic ulcer disease, pyelonephritis, kidney stone, this is not meant to be an all-inclusive list. Medical Decision Making - Medical Decision Making 63 female to ER for evaluation of severe back pain acute on chronic back pain with adequate pain control currently. Patient can be discharged home - Radiology Data Radiology results: report reviewed (X-ray LS spine is negative for traumatic injury), image reviewed Disposition Clinical Impression: Mechanical back pain, Strain of lumbar region, Thoracic back pain, Mid back pain, Lumbar radiculopathy Disposition: HOME SELF-CARE Condition: Fair Instructions (If sedation given, give patient instructions): Acute Low Back Pain (ED) Is patient prescribed a controlled substance at d/c from ED?: No Referrals: Nathanael Nogueira DO [Primary Care Provider] - 1-2 days Nima Nova DO [Family Provider] - 1-2 days Time of Disposition: 19:45
[2023-11-17] MEDS: HYDROmorphone 1 MG/ML 1 ML SYRINGE IVP STA (19:16)
[2023-11-17] MEDS: SODIUM CHLORIDE 0.9% 1,000 ML IV STA (19:16)
--- NOTE | 2023-11-17 19:57 | XR ---
EXAMINATION TYPE: XR lumbar spine 2 or 3V DATE OF EXAM: 11/17/2023 Comparison: 03/15/2022 Clinical History: 63-year-old female low back pain after fall a few days ago. Radiating down right le g. Findings: Patient status post L2-L5 posterior and interbody fusion. Corresponding laminectomies. Some bridging anterior endplate spondylosis above the fusion at L2-L3 and mild degenerative disc disease upper lumb ar spine. Additional lower thoracic spine. Vertebral body heights are preserved and alignment is main tained. Spinal stimulator lead ends in attending to the right side of the sacrum. Impression: [facility] involving the mid and lower thoracic spine. Status post L3-S1 posterior and interbody fusion wit h corresponding laminectomies. Some bridging anterior endplate spondylosis above the fusion at L2-L3. No vertebral compression collapse or malalignment.
[2023-11-17 20:47] VITALS: BP 161/78; PULSE 94; RESP 20; TEMP 98.7
== END 2023-11-17 20:26 | disposition home or self-care (01) ==
LOC: EC 18:05
DX: S39.012A Strain of muscle, fascia and tendon of lower back, initial encounter (principal); M54.6 Pain in thoracic spine; E78.5 Hyperlipidemia, unspecified; I10 Essential (primary) hypertension; I25.2 Old myocardial infarction; I25.10 Atherosclerotic heart disease of native coronary artery without angina pectoris; E07.9 Disorder of thyroid, unspecified; F41.9 Anxiety disorder, unspecified; F31.9 Bipolar disorder, unspecified; F17.200 Nicotine dependence, unspecified, uncomplicated; F12.90 Cannabis use, unspecified, uncomplicated; Z79.890 Hormone replacement therapy; Z95.5 Presence of coronary angioplasty implant and graft; Z79.899 Other long term (current) drug therapy; Z88.0 Allergy status to penicillin; Z79.02 Long term (current) use of antithrombotics/antiplatelets; Z88.1 Allergy status to other antibiotic agents; Z88.5 Allergy status to narcotic agent; Z88.8 Allergy status to other drugs, medicaments and biological substances; X50.1XXA Overexertion from prolonged static or awkward postures, initial encounter
CPT/HCPCS: 72100; 99284; 96374; J1170

== ENCOUNTER → 2023-12-09 | Outpatient (CLI) | payer MEDICARE ==
[2023-12-09 18:08] LABS: Appearance,Urine Clear (Clear); Bilirubin,Urine Negative (Negative); Blood,Urine Negative (Negative); Color,Urine Yellow; Glucose,Urine (UA) Negative (Negative); Ketones,Urine Negative (Negative); Leukocyte Esterase,Urine Negative (Negative); Nitrite,Urine Negative (Negative); Protein,Urine Negative (Negative); Specific Gravity,Urine 1.023 (1.001-1.035); Urobilinogen,Urine <2.0 mg/dL (<2.0)
[2023-12-10 04:08] LABS: Basophils # (A) 0.04 X 10*3/uL (0.00-0.10); Basophils % (A) 0.4 %; Eosinophils % (A) 3.2 %; HCT 50.6 % (37.2-46.3); HGB 16.1 g/dL (12.0-15.0); Lymphocytes # (A) 1.95 X 10*3/uL (0.90-5.00); MCH 32.8 pg (27.0-32.0); MCHC 31.8 g/dL (32.0-37.0); MCV 103.1 FL (80.0-97.0); Mean Platelet Volume 11.5 FL (9.5-12.2); Monocytes # (A) 0.43 X 10*3/uL (0.20-1.00); Monocytes % (A) 4.6 %; NRBC Per 100 WBC 0 X 10*3/uL (0.00-0.01); Neutrophils # (A) 6.51 X 10*3/uL (1.80-7.70); Neutrophils % (A) 70.3 %; Platelet Count 196 X 10*3/uL (140-440); RBC 4.91 X 10*6/uL (4.10-5.20); RDW 15.1 % (11.5-14.5); WBC 9.28 X 10*3/uL (4.50-10.00)
[2023-12-10 04:50] LABS: ALT 14 U/L (8-44); AST 22 U/L (13-35); Albumin 4.3 g/dL (3.8-4.9); Albumin/Globulin Ratio 1.59 Ratio (1.60-3.17); Alkaline Phosphatase 121 U/L (41-126); Blood Urea Nitrogen 11.7 mg/dL (9.0-27.0); Calcium 9.5 mg/dL (8.7-10.3); Carbon Dioxide 27.4 mmol/L (21.6-31.8); Chloride 103 mmol/L (96-109); Globulin 2.7 g/dL (1.6-3.3); Glucose 99 mg/dL (70-110); Sodium 142 mmol/L (135-145); Total Bilirubin 0.4 mg/dL (0.3-1.2)
[2023-12-10 05:54] LABS: HIV 2 AB Non-Reactive (Non-Reactive); HIV AB P24 Non-Reactive (Non-Reactive); HIV P24 AG Non-Reactive (Non-Reactive)
[2023-12-10 06:15] LABS: Hepatitis A Antibody IgM Nonreactive; Hepatitis B Core IgM Nonreactive; Hepatitis B Surface Antigen Nonreactive; Hepatitis C IgG Antibody Nonreactive
--- NOTE | 2023-12-10 11:48 | XR ---
EXAMINATION TYPE: XR chest 2V DATE OF EXAM: 12/09/2023 COMPARISON: 12/18/2022 HISTORY: 63-year-old female R61, generalized hydronephrosis TECHNIQUE: PA and lateral views FINDINGS: ACDF hardware. Heart borderline enlarged. Mild diffuse interstitial density in the chronic appearance . Mild hyperinflation. No consolidation or pleural effusion. [facility] mid thoracic spine. IMPRESSION: Borderline cardiomegaly and possible underlying COPD. No definite acute process.
== END | disposition home or self-care (01) ==
LOC: LABWHC1 15:33
PROVIDERS: ATTEND Internal Medicine
DX: E03.9 Hypothyroidism, unspecified (principal); R61 Generalized hyperhidrosis
CPT/HCPCS: 36415; 71046; 80053; 80074; 81003; 84439; 84443; 84481; 85025; 86140; 87040; 87390

== ENCOUNTER 2023-12-10 18:34 | Observation (INO) | payer MEDICARE ==
[2023-12-10] MEDS: NITROGLYCERIN OINT 1 INCH/GM PACKET TOPICAL STA (19:52)
[2023-12-10] MEDS: ASPIRIN 81 MG PO STA (19:52)
[2023-12-10] MEDS: LORazepam 2 MG/ML INJ IV STA (19:52)
[2023-12-10] MEDS: HYDROmorphone 0.5 MG/0.5 ML SYRINGE IVP STA (19:53)
[2023-12-10 19:54] LABS: Basophils % (A) 0 %; Eosinophils # (A) 0.4 k/uL (0-0.7); Eosinophils % (A) 4 %; HCT 45.9 % (34.0-46.0); HGB 14.8 gm/dL (11.4-16.0); Lymphocytes # (A) 1.8 k/uL (1.0-4.8); Lymphocytes % (A) 21 %; MCH 33.3 pg (25.0-35.0); MCHC 32.4 g/dL (31.0-37.0); MCV 102.8 fL (80.0-100.0); Macrocytosis Slight; Mean Platelet Volume 8.5; Monocytes # (A) 0.4 k/uL (0-1.0); Monocytes % (A) 4 %; Neutrophils # (A) 5.9 k/uL (1.3-7.7); Neutrophils % (A) 69 %; Platelet Count 163 k/uL (150-450); RBC 4.46 m/uL (3.80-5.40); RDW 13.9 % (11.5-15.5); WBC 8.5 k/uL (3.8-10.6)
[2023-12-10] MEDS: SODIUM CHLORIDE 0.9% 500 ML 500 ML IV STA (19:54)
--- NOTE | 2023-12-10 20:37 | XR ---
EXAMINATION: XR chest 2V: 12/10/2023 8:21 PM CLINICAL INDICATION: Chest Pain TECHNIQUE: Departmental protocol COMPARISON: 12/09/2023 1629 hours FINDINGS: The lungs are essentially the same interstitial pattern seen on yesterday's study. Interstitial phase pulmonary edema versus chronic interstitial lung disease of radiographic differential, along with le ss likely atypical pneumonia. The pleural spaces are negative. The cardiac silhouette is not enlarged. The skeletal structures and soft tissues are negative for acute findings. IMPRESSION: Stable findings as seen on 11/10/2023
--- NOTE | 2023-12-10 20:48 | CT ---
EXAMINATION TYPE: CT brain wo con DATE OF EXAM: 12/10/2023 HISTORY: headache CT DLP: 1148.4 mGycm. Automated Exposure Control for Dose Reduction was Utilized. TECHNIQUE: CT scan of the head is performed without contrast. COMPARISON: 03/07/2023 FINDINGS: There is no acute intracranial hemorrhage or midline shift identified. No definite acute attenuation defect. The globes are intact and the paranasal sinuses and middle ear cavities and mastoid sinus air cells are clear. IMPRESSION: No acute process.
[2023-12-10] MEDS ORDERED: NITROGLYCERIN SL TABS 0.4 MG TAB SUBLINGUAL PRN (21:03)
--- NOTE | 2023-12-10 21:03 | ED ---
General Adult HPI - General Chief complaint: Chest Pain Stated complaint: Chest pain, fatigue Time Seen by Provider: 12/10/23 19:30 Source: patient, RN notes reviewed, old records reviewed Mode of arrival: ambulatory Limitations: no limitations - History of Present Illness Initial comments: This is a 63-year-old female who presents to the emergency department today positive history for coronary artery disease. Patient states she has had a heart attack in the past. Patient states she has high blood pressure and is well smokes. Patient states for the last 2 weeks has been having episodes of sweating profusely and just feeling terrible and fatigue. Patient states over the last few days she started to experience chest pain with some mild shortness of breath. Patient denies any palpitations. Patient denies any fever chills or cough or patient denies abdominal pain patient has nausea vomit diarrhea. - Related Data Home Medications Medication Instructions Recorded Confirmed Metoprolol Succinate (ER) [Toprol 25 mg PO HS 07/10/21 10/15/23 XL] DULoxetine HCL [Cymbalta] 120 mg PO HS 10/30/22 10/15/23 Oxybutynin Chloride [oxyBUTYnin 10 mg PO HS 10/30/22 10/15/23 chloride ER] Brexpiprazole [Rexulti] 1 mg PO DAILY 10/15/23 10/15/23 Clopidogrel [Plavix] 75 mg PO DAILY 10/15/23 10/15/23 Isosorbide Mononitrate [Isosorbide 60 mg PO HS 10/15/23 10/15/23 Mononitrate ER] Levothyroxine Sodium [Levo-T] 112 mcg PO DAILY 10/15/23 10/15/23 Mirtazapine [Remeron] 15 mg PO HS 10/15/23 10/15/23 Rosuvastatin [Crestor] 10 mg PO HS 10/15/23 10/15/23 oxyCODONE ER [OxyCONTIN] 15 mg PO Q12HR PRN 10/15/23 10/15/23 oxyCODONE-APAP 10-325MG [Percocet 1 tab PO BID PRN 10/15/23 10/15/23 10-325 mg] Previous Rx's Medication Instructions Recorded Pregabalin [Lyrica] 150 mg PO TID #30 cap 12/23/22 Allergies Allergy/AdvReac Type Severity Reaction Status Date / Time ciprofloxacin [From Cipro] Allergy Anaphylaxis Verified 12/10/23 18:39 morphine Allergy Hallucinati Verified 12/10/23 18:39 ons Penicillins Allergy Swelling/Hi Verified 12/10/23 18:39 ves vancomycin Allergy Dyspnea Verified 12/10/23 18:39 ketorolac tromethamine AdvReac Itching Verified 12/10/23 18:39 [From Toradol] NSAIDS (Non-Steroidal AdvReac STOMACH Verified 12/10/23 18:39 Anti-Inflamma ULCER Review of Systems ROS Statement: Those systems with pertinent positive or pertinent negative responses have been documented in the HPI. ROS Other: All systems not noted in ROS Statement are negative. Past Medical History Past Medical History: Coronary Artery Disease (CAD), Chest Pain / Angina, Fibromyalgia, Hyperlipidemia, Hypertension, Myocardial Infarction (SD), Osteoarthritis (OA), Thyroid Disorder Additional Past Medical History / Comment(s): interstitial cystitis; constipat ion, gallstones, LUMBAR BACK PAIN Last Myocardial Infarction Date:: 2013 History of Any Multi-Drug Resistant Organisms: MRSA Date of last positivie culture/infection: 2022 MDRO Source:: from surgery Past Surgical History: Back Surgery, Bladder Surgery, Breast Surgery, Cholec ystectomy, Heart Catheterization With Stent, Hysterectomy, Orthopedic Surgery Additional Past Surgical History / Comment(s): bladder stimulator, neck surgery, total 6 cardiac stents - back fusion, neck fusion, jeff bunionectomy, revision of back surgery screws, cage and rods were suppose to be placed but DR Nova doesn't see them on imaging. Past Anesthesia/Blood Transfusion Reactions: No Reported Reaction Date of Last Stent Placement:: approx 3 yrs ago Past Psychological History: Anxiety, Bipolar, Depression, Panic Disorder Smoking Status: Current every day smoker Past Alcohol Use History: None Reported Past Drug Use History: Marijuana - Past Family History Father Family Medical History: Cancer General Exam - General Exam Comments Initial Comments: GENERAL: Patient is well-developed and well-nourished. Patient is nontoxic and well- hydrated and is in mild distress. ENT: Neck is soft and supple. No significant lymphadenopathy is noted. Oropharynx is clear. Moist mucous membranes. Neck has full range of motion without eliciting any pain. EYES: The sclera were anicteric and conjunctiva were pink and moist. Extraocular movements were intact and pupils were equal round and reactive to light. Eyelids were unremarkable. PULMONARY: Unlabored respirations. Good breath sounds bilaterally. No audible rales rhonchi or wheezing was noted. CARDIOVASCULAR: There is a regular rate and rhythm without any murmurs gallops or rubs. ABDOMEN: Soft and nontender with normal bowel sounds. SKIN: Skin is clear with no lesions or rashes and otherwise unremarkable. NEUROLOGIC: Patient is alert and oriented x3. Cranial nerves II through XII are grossly intact. Motor and sensory are also intact. Normal speech, volume and content. Symmetrical smile. MUSCULOSKELETAL: Normal extremities with adequate strength and full range of motion. No lower extremity swelling or edema. No calf tenderness. LYMPHATICS: No significant lymphadenopathy is noted PSYCHIATRIC: Normal psychiatric evaluation. Limitations: no limitations Course Vital Signs 12/10/23 12/10/23 18:36 20:02 Temperature 98.4 F 100.0 F H Pulse Rate 73 62 Respiratory 18 18 Rate Blood Pressure 152/90 146/75 O2 Sat by Pulse 95 96 Oximetry Medical Decision Making - Medical Decision Making EKG is interpreted by myself read EKG shows a sinus rhythm at 64 bpm parables 160 QRS 113 QT interval is 410 QTc is 420. Patient's EKG shows no ST segment ovation or depression. Was pt. sent in by a medical professional or institution (, PA, FIELD MAP EDITOR, urgent c are, hospital, or residential...) When possible be specific @ -No Did you speak to anyone other than the patient for history (EMS, parent, family, police, friend...)? What history was obtained from this source @ -No Did you review nursing and triage notes (agree or disagree)? Why? @ -I reviewed and agree with nursing and triage notes Were old charts reviewed (outside hosp., previous admission, EMS record, old EKG, old radiological studies, urgent care reports/EKG's, residential records)? Report findings @ -I reviewed prior charts and prior lab work on this patient Differential Diagnosis (chest pain, altered mental status, abdominal pain women, abdominal pain men, vaginal bleeding, weakness, fever, dyspnea, syncope, headache, dizziness, GI bleed, back pain, seizure, CVA, palpatations, mental health, musculoskeletal)? @ -Differential Chest Pain: Stable Angina, Unstable Angina, STEMI, NSTEMI Aortic Dissection, Pneumothorax, Musculoskeletal, Esophageal Spasm GERD, Cholecystitis, Pancreatitis, Zoster, this is not meant to be an all-inclusive list. EKG interpreted by me (3pts min.). @ -As above X-rays interpreted by me (1pt min.). @ -Chest x-ray shows no acute abnormality CT interpreted by me (1pt min.). @ -CT of the brain shows no acute abnormality U/S interpreted by me (1pt. min.). @ -None done What testing was considered but not performed or refused? (CT, X-rays, U/S, labs )? Why? @ -None What meds were considered but not given or refused? Why? @ -None Did you discuss the management of the patient with other professionals (professionals i.e. , PA, FIELD MAP EDITOR, lab, RT, psych nurse, licensed social worker, healthcare technician, teacher, bank secrecy act officer, rn case manager)? Give summary @ -I spoke with sound physicians they agreed admit the patient but the patient wrote admitting orders Was smoking cessation discussed for >3mins.? @ -No Was critical care preformed (if so, how long)? @ -No Were there social determinants of health that impacted care today? How? (Homelessness, low income, unemployed, alcoholism, drug addiction, transportation, low edu. Level, literacy, decrease access to med. care, group home, rehab)? @ -No Was there de-escalation of care discussed even if they declined (Discuss DNR or withdrawal of care, Hospice)? DNR status @ -No What co-morbidities impacted this encounter? (DM, HTN, Smoking, COPD, CAD, Cancer, CVA, ARF, Chemo, Hep., AIDS, mental health diagnosis, sleep apnea, mor bid obesity)? @ -None Was patient admitted / discharged? Hospital course, mention meds given and rou te, prescriptions, significant lab abnormalities, going to OR and other pertinent info. @ -Patient was experiencing some back pain it was time for pain medications I did give her 0.5 Dilaudid. Patient also was very anxious I gave her 0.5 of Ativan. Patient was feeling considerably better but she still occasionally having chest pain. Patient did have a low-grade temperature and checked for COVID influenza and RSV. I spoke with sound physicians they agreed admit the patient to the patient and wrote admitting orders. Undiagnosed new problem with uncertain prognosis? @ -No Drug Therapy requiring intensive monitoring for toxicity (Heparin, Nitro, Insulin, Cardizem)? @ -No Were any procedures done? @ -No Diagnosis/symptom? @ -Chest pain Acute, or Chronic, or Acute on Chronic? @ -Acute Uncomplicated (without systemic symptoms) or Complicated (systemic symptoms)? @ -Complicated Side effects of treatment? @ -No Exacerbation, Progression, or Severe Exacerbation? @ -No Poses a threat to life or bodily function? How? (Chest pain, USA, SD, pneumonia, PE, COPD, DKA, ARF, appy, cholecystitis, CVA, Diverticulitis, Homicidal, Suicidal, threat to staff... and all critical care pts) @ -Yes this can lead to heart attack and endorgan dysfunction - Lab Data Result diagrams: 12/10/23 19:17 Lab Results 12/10/23 12/10/23 Range/Units 19:17 19:17 WBC 8.5 (3.8-10.6) k/uL RBC 4.46 (3.80-5.40) m/uL Hgb 14.8 (11.4-16.0) gm/dL Hct 45.9 (34.0-46.0) % MCV 102.8 H (80.0-100.0) fL MCH 33.3 (25.0-35.0) pg MCHC 32.4 (31.0-37.0) g/dL RDW 13.9 (11.5-15.5) % Plt Count 163 (150-450) k/uL MPV 8.5 Neutrophils % 69 % Lymphocytes % 21 % Monocytes % 4 % Eosinophils % 4 % Basophils % 0 % Neutrophils # 5.9 (1.3-7.7) k/uL Lymphocytes # 1.8 (1.0-4.8) k/uL Monocytes # 0.4 (0-1.0) k/uL Eosinophils # 0.4 (0-0.7) k/uL Basophils # 0.0 (0-0.2) k/uL Macrocytosis Slight PT 11.0 (10.0-12.5) sec INR 1.0 (<1.2) APTT 28.0 (22.0-30.0) sec Disposition Clinical Impression: Chest pain Disposition: ADMITTED IP TO THIS HOSP Referrals: Nathanael Nogueira DO [Primary Care Provider] - 1-2 days Time of Disposition: 21:03
[2023-12-10 21:22] LABS: ALT 13 U/L (4-34); AST 24 U/L (14-36); African American GFR (CKD) >90 (>60 ml/min/1.73 sqM); Albumin 3.4 g/dL (3.5-5.0); Alkaline Phosphatase 99 U/L (38-126); Anion Gap 8 mmol/L; Blood Urea Nitrogen 12 mg/dL (7-17); Carbon Dioxide 23 mmol/L (22-30); Chloride 110 mmol/L (98-107); Glucose 79 mg/dL (74-99); Magnesium 1.9 mg/dL (1.6-2.3); Non-African American GFR(CKD) >90 (>60 ml/min/1.73 sqM); Potassium 3.6 mmol/L (3.5-5.1); Sodium 141 mmol/L (137-145); Total Bilirubin 0.4 mg/dL (0.2-1.3); Total Protein 5.9 g/dL (6.3-8.2)
[2023-12-10] MEDS: NITROGLYCERIN OINT 1 INCH/GM PACKET TOPICAL SCH (23:37)
[2023-12-11] MEDS: HYDROmorphone 0.5 MG/0.5 ML SYRINGE IVP PRN (00:39)
[2023-12-11] MEDS: oxyCODONE-APAP 10-325MG 1 EACH TAB PO PRN (00:58)
[2023-12-11] MEDS: PREGABALIN 75 MG CAP PO SCH (00:59)
--- NOTE | 2023-12-11 01:21 | P.HPIM ---
History of Present Illness H&P Date: 12/10/23 Chief Complaint: Chest pain 63-year-old female with coronary artery disease status post stents Patient coming in reporting 2-week history of feeling heaviness on her chest wh ich is worse with activity those episodes usually lasts for few minutes and resolves with resting triggered by activity. Associated with shortness of breath feeling nauseous and dizzy denies any vomiting. She reports history of hysterectomy long time ago, however over the past couple weeks she has been experiencing profuse diaphoresis throughout the day and feeling very exhausted if she does any activity as simple as walking to the bathroom. Above symptoms has been getting worse specially over the past few days for which she decided to come in for evaluation She also reports frequent episodes of accidental falls due to tripping over things but denies any head injury or passing out she denies any new focal neurodeficits however she does report headaches that is been bothering her over the past couple days patient is not on any blood thinners, she only takes aspirin and Plavix Otherwise she denies any sore throat coughing fevers chills denies any abdominal pain changes in bowel or urinary habit denies any GI bleeding She admits to tobacco smoking and marijuana denies any heavy alcohol review of systems Pertinent positives as noted in HPI. All other systems were reviewed and are negative on exam Constitutional: No acute distress, conversant, pleasant Eyes: Anicteric sclerae, moist conjunctiva, Pupils equal round reactive to light ENMT: NC/AT Oropharynx clear, no erythema, or exudates Neck: Supple, no masses, or JVD No carotid bruits No thyromegaly Lungs: Good breath sounds throughout with inspiratory rales at lung bases Clear to percussion Normal respiratory effort, no accessory muscle use Cardiovascular: Heart regular in rate and rhythm, No murmurs, gallops, or rubs +1 bilateral peripheral leg edema Abdominal: Soft Nontender, no guarding, rebound or rigidity Abdomen moving with respiration Normoactive bowel sounds Extremities: No digital cyanosis No clubbing Pedal pulses intact and symmetrical Radial pulses intact and symmetrical No calf tenderness Psychiatric: Alert and oriented to person, place and time Appropriate affect Neuro Muscles Strength 4/5 in all 4 extremities Sensation to light touch grossly present throughout Cranial nerves II-XII grossly intact Past Medical History Past Medical History: Coronary Artery Disease (CAD), Chest Pain / Angina, Fibromyalgia, Hyperlipidemia, Hypertension, Myocardial Infarction ([place]), Osteoarthritis (OA), Thyroid Disorder Additional Past Medical History / Comment(s): interstitial cystitis; constipation, gallstones, LUMBAR BACK PAIN Last Myocardial Infarction Date:: 2013 History of Any Multi-Drug Resistant Organisms: MRSA Date of last positivie culture/infection: 2022 MDRO Source:: from surgery Past Surgical History: Back Surgery, Bladder Surgery, Breast Surgery, Cholecystectomy, Heart Catheterization With Stent, Hysterectomy, Orthopedic Surgery Additional Past Surgical History / Comment(s): bladder stimulator, neck surgery, total 6 cardiac stents - back fusion, neck fusion, jeff bunionectomy, revision of back surgery screws, cage and rods were suppose to be placed but DR Nova doesn't see them on imaging. Past Anesthesia/Blood Transfusion Reactions: No Reported Reaction Date of Last Stent Placement:: approx 3 yrs ago Past Psychological History: Anxiety, Bipolar, Depression, Panic Disorder Smoking Status: Current every day smoker Past Alcohol Use History: None Reported Past Drug Use History: Marijuana - Past Family History Father Family Medical History: Cancer Medications and Allergies Home Medications Medication Instructions Recorded Confirmed Type Metoprolol Succinate (ER) [Toprol 25 mg PO DAILY 07/10/21 12/10/23 History XL] DULoxetine HCL [Cymbalta] 120 mg PO HS 10/30/22 12/10/23 History Oxybutynin Chloride [oxyBUTYnin 10 mg PO HS 10/30/22 12/10/23 History chloride ER] Pregabalin [Lyrica] 150 mg PO TID #30 cap 12/23/22 12/10/23 Rx Clopidogrel [Plavix] 75 mg PO DAILY 10/15/23 12/10/23 History oxyCODONE ER [OxyCONTIN] 15 mg PO Q12HR 10/15/23 12/10/23 History oxyCODONE-APAP 10-325MG [Percocet 1 tab PO BID PRN 10/15/23 12/10/23 History 10-325 mg] Amitriptyline HCl [Elavil] 30 mg PO HS 12/10/23 12/10/23 History Cholecalciferol (Vitamin D3) 50 mcg PO DAILY 12/10/23 12/10/23 History [Vitamin D3 (50 Mcg = 2000 Iu)] Isosorbide Mononitrate [Imdur] 120 mg PO DAILY 12/10/23 12/10/23 History Levothyroxine Sodium [Synthroid] 125 mcg PO DAILY 12/10/23 12/10/23 History Multivitamins, Thera [Multivitamin 1 tab PO DAILY 12/10/23 12/10/23 History (formulary)] QUEtiapine [SEROquel] 400 mg PO HS 12/10/23 12/10/23 History Vitamin C/Biotin [Hair, Skin and 1 tab PO DAILY 12/10/23 12/10/23 History Nails Chew] Allergies Allergy/AdvReac Type Severity Reaction Status Date / Time ciprofloxacin [From Cipro] Allergy Anaphylaxis Verified 12/10/23 22:40 morphine Allergy Hallucinati Verified 12/10/23 22:40 ons Penicillins Allergy Swelling/Hi Verified 12/10/23 22:40 ves vancomycin Allergy Dyspnea Verified 12/10/23 22:40 ketorolac tromethamine AdvReac Itching Verified 12/10/23 22:40 [From Toradol] NSAIDS (Non-Steroidal AdvReac STOMACH Verified 12/10/23 22:40 Anti-Inflamma ULCER Physical Exam Vitals: Vital Signs Temp Pulse Resp BP Pulse Ox 12/10/23 20:02 100.0 F H 62 18 146/75 96 12/10/23 18:36 98.4 F 73 18 152/90 95 Intake and Output 12/10/23 12/10/23 12/10/23 06:59 14:59 22:59 Other: Weight 77.111 kg Results CBC & Chem 7: 12/10/23 19:17 12/10/23 21:00 Labs: Abnormal Lab Results - Last 24 Hours (Table) 12/10/23 Range/Units 19:17 MCV 102.8 H (80.0-100.0) fL Assessment and Plan Assessment: 63-year-old female coronary artery disease status post stents coming in with progressive 2-week history of episodes of chest heaviness associated with pro fuse diaphoresis and feeling exhausted and short of breath. Discussed case with ED doctor and accepted the admission for atypical chest pain rule out acute coronary syndrome with anticipated length of stay less than 2 midnights Atypical chest pain Strong history of coronary artery disease status post multiple stents Continue with aspirin Plavix and statin Cardiac monitoring EKG no acute ST changes Chest x-ray showed possibility of very mild pulmonary edema Troponins negative x 2 Renal function unremarkable sodium 141 potassium 3.6 BUN 12 creatinine 0.6 Hemoglobin unremarkable 14.8 Monitor vital signs Cardiology consult Nitro as needed for chest pain Continue cardiac meds metoprolol 25 mg p.o. daily Imdur 120 mg p.o. daily Dilaudid 0.5 mg IV push every 3 hours for breakthrough pain as needed One-time dose of IV Lasix 20 mg Daily weights Chronic conditions Coronary artery disease as in above continue cardiac meds Hypertension poorly controlled resume metoprolol and isosorbide for now continue to monitor, reassess in the morning if adjustment needed for home medications patient will receive IV Lasix overnight Hyperlipidemia continue statin Patient reports frequent falling due to tripping over objects, denies head injury Tylenol for headache as needed CT of the brain no acute intracranial pathology Full code DVT prophylaxis heparin 5000 units subcu 3 times daily
[2023-12-11] MEDS: QUEtiapine 400 MG TAB PO SCH (01:24)
[2023-12-11] MEDS: AMITRIPTYLINE HCL 10 MG TAB PO SCH (01:24)
[2023-12-11] MEDS: FUROSEMIDE 10 MG/ML 2 ML VIAL IV ONE (01:33)
[2023-12-11] MEDS: LEVOTHYROXINE 125 MCG TAB PO SCH (06:22)
--- NOTE | 2023-12-11 08:02 | P.PN ---
Subjective Progress Note Date: 12/11/23 Patient is a 63-year-old female with history of coronary artery disease status post stenting, hypertension, dyslipidemia, and fibromyalgia who presented to the emergency department with chest heaviness worsened with exertion. In the ER she underwent an extensive evaluation initial vital signs were within normal limits she then spiked 1 temperature of 100. Initial laboratory analysis included CBC, coags, CMP, troponin all which were unremarkable. Influenza A/B/RSV/COVID-19 testing was negative. Chest x-ray demonstrated stable findings. CT brain showed no acute process. She was placed in observation for chest pain. She was given a dose of aspirin, Lasix, and Ativan in the emergency department. She also had Nitropaste placed. Her troponins were trended and remained negative. Cardiology was consulted. Patient seen and examined at bedside. Denies any chest pain she denies any sh ortness of breath. She does report that she was sent in by her primary care physician due to persistent fatigue with decreased exercise tolerance and persistent sweating. No nausea, vomiting, diarrhea, no fevers at home, no change in chronic pain. I was able to discuss this case with her primary care physician. He does state he directed her to the emergency department as she called him and had a systolic blood pressure in the 200s along with her diaphoresis. They have been working up her persistent diaphoresis in the outpatient setting and she has undergone multiple tests including TSH, hepatitis testing, HIV testing, SPEP, and CBC with differential and slide review. He states his next course of action would have been a CT chest abdomen and pelvis to look for signs of occult malignancy. Vital signs reviewed General: Nontoxic, no distress, appears at stated age Cardiovascular: S1S2 reg, no murmur Lungs: CTA bilateral, no rhonchi, no rales, no accessory muscle use Abdominal: Soft, nontender to palpation, no guarding Ext: No gross muscle atrophy, no edema b/l lower extremities, no contractures Neuro: CN II-XI grossly intact, no focal neuro deficits Psych: Alert, oriented, appropriate affect Assessment/Plan: Fatigue with diaphoresis -Multiple etiologies could be considered in this patient including pheochromocytoma, occult malignancy, occult infectious endocarditis as patient does have a history of an MSSA bacteremia in December 2022. Will proceed with CT chest abdomen and pelvis with IV contrast. If that is unrevealing would suggest transferring the remainder of this workup to the outpatient setting if patient continues to have stable vital signs. - TSH mildly elevated but was normal 2 days ago - BCx neg for 24 hours done in the outpatient setting - B12 normal Coronary artery disease status post multiple stents History of prior stroke Hypertension Dyslipidemia -Await cardiology consultation -Await echocardiogram -Aspirin 325 mg daily, Plavix 75 mg daily, Imdur 120 mg daily, metoprolol 25 mg daily -Patient is not chronically on statin. start lipitor 40 mg daily Imaging: none new Data Review: Labs reviewed from today include troponins which are negative, CRP 2, cholesterol 246, triglycerides 185, LDL 166. This dictation was prepared using [employer] voice recognition software. Though every attempt is made to correct errors during dictation some may still exist. Objective - Vital Signs Vital signs: Vital Signs Temp 97.4 F L 12/11/23 04:00 Pulse 55 L 12/11/23 06:22 Resp 14 12/11/23 06:22 BP 154/72 12/11/23 05:00 Pulse Ox 95 12/11/23 04:00 FiO2 Intake & Output 12/10/23 12/11/23 12/11/23 18:59 06:59 18:59 Weight 77.111 kg 79.5 kg Other: # Voids 2 - Labs CBC & Chem 7: 12/10/23 19:17 12/10/23 21:00 Labs: Abnormal Lab Results - Last 24 Hours (Table) 12/10/23 12/10/23 Range/Units 19:17 21:00 MCV 102.8 H (80.0-100.0) fL Chloride 110 H (98-107) mmol/L Calcium 8.0 L (8.4-10.2) mg/dL Total Protein 5.9 L (6.3-8.2) g/dL Albumin 3.4 L (3.5-5.0) g/dL
[2023-12-11] MEDS: CLOPIDOGREL 75 MG TAB PO SCH (08:39)
[2023-12-11] MEDS: LOSARTAN 25 MG TAB PO SCH (08:39)
[2023-12-11] MEDS: METOPROLOL SUCCINATE (ER) 25 MG TAB.ER.24H PO SCH (08:39)
[2023-12-11] MEDS: HEPARIN SODIUM,PORCINE 5,000 UNIT/ML 1 ML VIAL SQ SCH (08:39)
[2023-12-11] MEDS: ISOSORBIDE MONONITRATE ER 60 MG TAB.ER.24H PO SCH (08:39)
[2023-12-11] MEDS ORDERED: ASPIRIN 81 MG PO SCH (09:00)
[2023-12-11] MEDS ORDERED: ASPIRIN 325 MG TAB PO SCH (09:00)
[2023-12-11 09:04] LABS: Chol/HDL Ratio 5.79 Ratio; LDL Cholesterol,Calculated 166.5 mg/dL (0.0-131.0)
--- NOTE | 2023-12-11 10:52 | P.CRDCN ---
History of Present Illness History of present illness: HISTORY OF PRESENT ILLNESS: This is a 63-year-old female with a past medical history significant for coronary artery disease with previous stenting, hypertension, hyperlipidemia, and hypothyroidism. Patient follows in the office with Dr. Dorantes. We have been asked to see the patient in consultation for chest pain. Patient examined at the bedside in the emergency room. Patient states she presented to the hospital with a chief complaint of sweating. The patient reports she has been sweating at night significantly. She reports going through 2-3 starts at night. She reports that she is tired and feels exhausted. She denies any runny nose, sore throat, or fever at home. She denies having any chest pain or shortness of breath with ambulation over the past few weeks. She reports mild vague chest discomfort overnight. Blood pressures are elevated this morning with a systolic in the 150s. DIAGNOSTICS: - EKG reveals sinus mechanism with nonspecific ST-T wave changes. These changes are evident on previous EKGs as well.. - Chest xray negative for acute process. - Laboratory data: WBC 8.5. Hemoglobin 14.8. Platelet count 163. Sodium 141. Potassium 3.6. BUN 12. Creatinine 0.65. Troponin negative x 3. - Current home cardiac medications include Imdur 120 mg, Plavix 75 mg daily, metoprolol succinate 25 mg daily. - Most recent echocardiogram obtained in 11/2022 revealed ejection fraction 50 to 55% with mild LVH - Cardiac catheterization history: 12/2022 revealing no significant disease in the proximal RCA that was stented. Branch of the RCA has a 60 to 70% narrowing. Major diagonal has a 60 to 70% narrowing. LAD is widely patent. Left main and circumflex are free of significant disease. REVIEW OF SYSTEMS: At the time of my exam: CONSTITUTIONAL: Denies fever or chills. HEENT: Denies blurred vision, vision changes, or eye pain. Denies hemoptysis CARDIOVASCULAR: Denies chest pain. Denies orthopnea. Denies PND. Denies palpitations RESPIRATORY: Denies shortness of breath. GASTROINTESTINAL: Denies abdominal pain. Denies nausea or vomiting. HEMATOLOGIC: Denies bleeding disorders. GENITOURINARY: Denies any blood in urine. SKIN: Denies pruitis. Denies rash. PHYSICAL EXAM: VITAL SIGNS: Reviewed. GENERAL: Well-developed in no acute distress. HEENT: Head is normocephalic. Pupils are equal, round. Sclerae anicteric. Mucous membranes of the mouth are moist. Neck supple. No JVD or thyromegaly LUNGS: Respirations even and unlabored. Lungs essentially clear to auscultation bilaterally. HEART: Regular rate and rhythm. S1 and S2 heard. ABDOMEN: Soft. Nondistended. Nontender. EXTREMITIES: Normal range of motion. No clubbing or cyanosis. Peripheral pulses intact. No lower extremity edema NEUROLOGIC: Awake and alert. Oriented x 3. ASSESSMENT: Generalized weakness with significant diaphoresis, per patient Mild vague chest discomfort, ACS ruled out Coronary artery disease with previous stenting of the RCA, 2013, and LAD, 2018 Hyperlipidemia, LDL 166 Hypertension Hypothyroidism PLAN: An acute coronary event has been ruled out Obtain 2D echo to assess cardiac structure and function Discontinue aspirin. Continue plavix. Patient not on a statin on an outpatient basis. LDL 166. Will begin Lipitor 40 mg at night Add losartan 25 mg daily for optimal blood pressure control as blood pressure is running in the 150s this morning Check CRP and ESR Patient is currently stable from a cardiac perspective Further recommendations pending patient course Nurse practitioner note has been reviewed by physician. Signing provider agrees with the documented findings, assessment, and plan of care documented by [employer] as a scribe. Past Medical History Past Medical History: Coronary Artery Disease (CAD), Chest Pain / Angina, Fibromyalgia, Hyperlipidemia, Hypertension, Myocardial Infarction ([place]), Osteoarthritis (OA), Thyroid Disorder Additional Past Medical History / Comment(s): interstitial cystitis; constipation, gallstones, LUMBAR BACK PAIN Last Myocardial Infarction Date:: 2013 History of Any Multi-Drug Resistant Organisms: MRSA Date of last positivie culture/infection: 2022 MDRO Source:: from surgery Past Surgical History: Back Surgery, Bladder Surgery, Breast Surgery, Cholecystectomy, Heart Catheterization With Stent, Hysterectomy, Orthopedic Surgery Additional Past Surgical History / Comment(s): bladder stimulator, neck surgery, total 6 cardiac stents - back fusion, neck fusion, jeff bunionectomy, revision of back surgery screws, cage and rods were suppose to be placed but DR Nova doesn't see them on imaging. Past Anesthesia/Blood Transfusion Reactions: No Reported Reaction Date of Last Stent Placement:: approx 3 yrs ago Past Psychological History: Anxiety, Bipolar, Depression, Panic Disorder Smoking Status: Current every day smoker Past Alcohol Use History: None Reported Past Drug Use History: Marijuana - Past Family History Father Family Medical History: Cancer Medications and Allergies Home Medications Medication Instructions Recorded Confirmed Type Metoprolol Succinate (ER) [Toprol 25 mg PO DAILY 07/10/21 12/10/23 History XL] DULoxetine HCL [Cymbalta] 120 mg PO HS 10/30/22 12/10/23 History Oxybutynin Chloride [oxyBUTYnin 10 mg PO HS 10/30/22 12/10/23 History chloride ER] Pregabalin [Lyrica] 150 mg PO TID #30 cap 12/23/22 12/10/23 Rx Clopidogrel [Plavix] 75 mg PO DAILY 10/15/23 12/10/23 History oxyCODONE ER [OxyCONTIN] 15 mg PO Q12HR 10/15/23 12/10/23 History oxyCODONE-APAP 10-325MG [Percocet 1 tab PO BID PRN 10/15/23 12/10/23 History 10-325 mg] Amitriptyline HCl [Elavil] 30 mg PO HS 12/10/23 12/10/23 History Cholecalciferol (Vitamin D3) 50 mcg PO DAILY 12/10/23 12/10/23 History [Vitamin D3 (50 Mcg = 2000 Iu)] Isosorbide Mononitrate [Imdur] 120 mg PO DAILY 12/10/23 12/10/23 History Levothyroxine Sodium [Synthroid] 125 mcg PO DAILY 12/10/23 12/10/23 History Multivitamins, Thera [Multivitamin 1 tab PO DAILY 12/10/23 12/10/23 History (formulary)] QUEtiapine [SEROquel] 400 mg PO HS 12/10/23 12/10/23 History Vitamin C/Biotin [Hair, Skin and 1 tab PO DAILY 12/10/23 12/10/23 History Nails Chew] Allergies Allergy/AdvReac Type Severity Reaction Status Date / Time ciprofloxacin [From Cipro] Allergy Anaphylaxis Verified 12/10/23 22:40 morphine Allergy Hallucinati Verified 12/10/23 22:40 ons Penicillins Allergy Swelling/Hi Verified 12/10/23 22:40 ves vancomycin Allergy Dyspnea Verified 12/10/23 22:40 ketorolac tromethamine AdvReac Itching Verified 12/10/23 22:40 [From Toradol] NSAIDS (Non-Steroidal AdvReac STOMACH Verified 12/10/23 22:40 Anti-Inflamma ULCER Physical Exam Vitals: Vital Signs Temp Pulse Pulse Resp BP BP Pulse Ox 12/11/23 06:22 55 L 14 12/11/23 05:00 52 L 17 154/72 12/11/23 04:00 97.4 F L 55 L 12 154/72 95 12/11/23 03:00 60 12/11/23 02:00 62 12/11/23 01:00 60 12/11/23 00:00 61 12 167/76 12/10/23 23:30 98.5 F 55 L 13 167/76 12/10/23 21:23 58 L 18 158/84 95 12/10/23 20:02 100.0 F H 62 18 146/75 96 12/10/23 18:36 98.4 F 73 18 152/90 95 Intake and Output 12/10/23 12/11/23 12/11/23 22:59 06:59 14:59 Other: # Voids 1 2 Weight 79.5 kg Results 12/10/23 19:17 12/10/23 21:00 Cardiac Enzymes 12/10/23 12/10/23 12/11/23 Range/Units 21:00 21:00 00:01 AST 24 (14-36) U/L Troponin I <0.012 <0.012 (0.000-0.034) ng/mL 12/11/23 Range/Units 04:18 AST (14-36) U/L Troponin I <0.012 (0.000-0.034) ng/mL Coagulation 12/10/23 Range/Units 19:17 PT 11.0 (10.0-12.5) sec APTT 28.0 (22.0-30.0) sec CBC 12/10/23 Range/Units 19:17 WBC 8.5 (3.8-10.6) k/uL RBC 4.46 (3.80-5.40) m/uL Hgb 14.8 (11.4-16.0) gm/dL Hct 45.9 (34.0-46.0) % Plt Count 163 (150-450) k/uL Comprehensive Metabolic Panel 12/10/23 Range/Units 21:00 Sodium 141 (137-145) mmol/L Potassium 3.6 (3.5-5.1) mmol/L Chloride 110 H (98-107) mmol/L Carbon Dioxide 23 (22-30) mmol/L BUN 12 (7-17) mg/dL Creatinine 0.65 (0.52-1.04) mg/dL Glucose 79 (74-99) mg/dL Calcium 8.0 L (8.4-10.2) mg/dL AST 24 (14-36) U/L ALT 13 (4-34) U/L Alkaline Phosphatase 99 (38-126) U/L Total Protein 5.9 L (6.3-8.2) g/dL Albumin 3.4 L (3.5-5.0) g/dL Current Medications Generic Name Dose Route Start Last Admin Trade Name Freq PRN Reason Stop Dose Admin Amitriptyline HCl 30 mg 12/11/23 00:45 12/11/23 01:24 Amitriptyline Hcl 10 Mg Tab PO 30 mg HS [facility] Administration Aspirin 325 mg 12/11/23 09:00 Aspirin 325 Mg Tab PO DAILY [facility] Clopidogrel Bisulfate 75 mg 12/11/23 09:00 Clopidogrel 75 Mg Tab PO DAILY [facility] Duloxetine HCl 120 mg 12/11/23 21:00 Duloxetine Hcl 60 Mg Capsule. PO HS [facility] Heparin Sodium (Porcine) 5,000 unit 12/11/23 08:00 Heparin Sodium,Porcine 5,000 Unit/Ml 1 Ml Vial SQ Q8HR [facility] Hydromorphone HCl 0.5 mg 12/11/23 00:33 12/11/23 00:39 Hydromorphone 0.5 Mg/0.5 Ml Syringe IVP 0.5 mg Q3HR PRN Administration Pain Isosorbide Mononitrate 120 mg 12/11/23 09:00 Isosorbide Mononitrate Er 60 Mg Tab.Er.24h PO DAILY [facility] Levothyroxine Sodium 125 mcg 12/11/23 06:30 12/11/23 06:22 Levothyroxine 125 Mcg Tab PO 125 mcg DAILY@0630 [facility] Administration Metoprolol Succinate 25 mg 12/11/23 09:00 Metoprolol Succinate (Er) 25 Mg Tab.Er.24h PO DAILY [facility] Nitroglycerin 0.4 mg 12/10/23 21:03 Nitroglycerin Sl Tabs 0.4 Mg Tab SUBLINGUAL Q5M PRN Chest Pain Oxycodone/Acetaminophen 1 each 12/11/23 00:38 12/11/23 00:58 Oxycodone-Apap 10-325mg 1 Each Tab PO 1 each BID PRN Administration Pain Pregabalin 150 mg 12/11/23 00:45 12/11/23 00:59 Pregabalin 75 Mg Cap PO 150 mg TID [facility] Administration Quetiapine Fumarate 400 mg 12/11/23 00:45 12/11/23 01:24 Quetiapine 400 Mg Tab PO 400 mg HS [facility] Administration Intake and Output 12/10/23 12/11/23 12/11/23 22:59 06:59 14:59 Other: # Voids 1 2 Weight 79.5 kg 12/10/23 19:17 12/10/23 21:00
[2023-12-11 12:33] LABS: T4, Free (Free Thyroxine) 1.47 ng/dL (0.78-2.19)
--- NOTE | 2023-12-11 17:50 | CA ---
Transthoracic Echo Report Name: Adeline Christiansen Age: 63 Gender: F : 1960 Exam Date: 12/11/2023 10:56 Exam Location: [facility] Ht (in): 61 Wt (lb): 170 Ordering Physician: Roland Berger MD Attending/Referring Phys: [id number], Celine Senior Automation Engineer Bette Cottrell, SUNIL Procedure CPT: Indications: exertional dyspnea Cardiac Hx: Technical Quality: Fair Contrast 1: Total Dose (mL): Contrast 2: Total Dose (mL): MEASUREMENTS (Male / Female) Normal Values 2D ECHO LV Diastolic Diameter PLAX 4.7 cm 4.2 - 5.9 / 3.9 - 5.3 cm LV Systolic Diameter PLAX 3.3 cm IVS Diastolic Thickness 1.1 cm 0.6 - 1.0 / 0.6 - 0.9 cm LVPW Diastolic Thickness 1.3 cm 0.6 - 1.0 / 0.6 - 0.9 cm LV Relative Wall Thickness 0.5 RV Internal Dim ED PLAX 3.2 cm LA Systolic Diameter LX 3.6 cm 3.0 - 4.0 / 2.7 - 3.8 cm LV Diastolic Volume MOD BP 75.2 cm??? 67 - 155 / 56 - 104 cm??? LV Systolic Volume MOD BP 39.4 cm??? - 58 / 19 - 49 cm??? LV Ejection Fraction MOD BP 47.6 % >= 55 % LV Cardiac Index MOD BP 1312.8 cm???/min???m??? LV Diastolic Volume MOD 4C 86.2 cm??? LV Systolic Volume MOD 4C 43.7 cm??? LV Ejection Fraction MOD 4C 49.3 % LV Cardiac Index MOD 4C 1559.8 cm???/min???m??? LV Diastolic Length 4C 6.9 cm LV Systolic Length 4C 5.6 cm LV Diastolic Volume MOD 2C 66.5 cm??? LV Systolic Volume MOD 2C 32.8 cm??? LV Ejection Fraction MOD 2C 50.7 % LV Cardiac Index MOD 2C 1237.2 cm???/min???m??? LV Diastolic Length 2C 7.0 cm LV Systolic Length 2C 6.2 cm LA Volume 64.4 cm??? 18 - 58 / 22 - 52 cm??? LA Volume Index 34.8 cm???/m??? 16 - 28 cm???/m??? M-MODE Aortic Root Diameter MM 3.2 cm MV E Point Septal Separation 0.7 cm DOPPLER AV Peak Velocity 171.6 cm/s AV Peak Gradient 11.8 mmHg AI Peak Velocity 394.3 cm/s AI Peak Gradient 62.2 mmHg AI Pressure Half Time 1800.1 ms MV Area PHT 3.0 cm??? Mitral E Point Velocity 76.6 cm/s Mitral A Point Velocity 88.0 cm/s Mitral E to A Ratio 0.9 MV Deceleration Time 251.8 ms TR Peak Velocity 232.3 cm/s TR Peak Gradient 21.6 mmHg Right Ventricular Systolic Press 26.1 mmHg FINDINGS Left Ventricle Left ventricular ejection fraction is estimated at 55-60 %. Left ventricular cavity size normal. Mildly increased septal wall thickness. Mildly increased posterior wall thickness. Right Ventricle Normal right ventricular size. Right ventricular systolic pressure within normal limits. Right Atrium Normal right atrial size. Left Atrium Moderately increased left atrial volume. Mildly increased left atrial area. Mitral Valve Structurally normal mitral valve. Trace to mild mitral regurgitation. No evidence for mitral valve prolapse. No mitral stenosis. Aortic Valve Trileaflet aortic valve. Mild aortic regurgitation. Tricuspid Valve Structurally normal tricuspid valve. Mild tricuspid regurgitation. Pulmonic Valve Structurally normal pulmonic valve. Trace pulmonic regurgitation. Pericardium No pericardial effusion. Aorta Normal size aortic root and proximal ascending aorta. CONCLUSIONS Normal LV function Previewed by: Dr. James Talamantes MD (Electronically Signed) Final Date: 11 December 2023 17:49
[2023-12-11] MEDS: DULoxetine HCL 60 MG CAPSULE.DR PO SCH (21:43)
[2023-12-11] MEDS: ATORVASTATIN 40 MG TAB PO SCH (21:43)
--- NOTE | 2023-12-12 10:29 | CT ---
EXAMINATION TYPE: CT ChestAbdPelvis w con DATE OF EXAM: 12/11/2023 COMPARISON: Abdomen and pelvis 01/10/2022, chest 01/11/2022 HISTORY: 63-year-old female fevers, elevated CRP, diaphoresis TECHNIQUE: Contiguous axial scanning of the chest, abdomen, and pelvis performed with IV Contrast, pa tient injected with 100 ml mL of Isovue 300. Delayed images through the kidneys were obtained. Mead l/sagittal reconstructions performed. CT DLP: 1102.7 mGycm Automated exposure control for dose reduction was used. FINDINGS: Chest: The heart is normal size without pericardial effusion. LAD and RCA coronary calcifications are presen t. Borderline ectatic ascending aorta 3.5 cm with conventional vessel branching anatomy. Oil cyst calcifications lateral left breast and smaller within the superior right breast. Scattered nonenlarged mediastinal lymph nodes. No thoracic lymphadenopathy by CT size criteria. Lungs are limited by motion artifact. There is mild emphysematous change. Some scattered mild subpleu ral reticular change may represent mild interstitial fibrosis. Some minimal groundglass density in the bilateral upper lobes, for example, axial image 15, 18, and 1 9. No jeff consolidation or pleural effusion. Some focal right paraspinal soft tissue thickening at the T7 level. There are changes of DISH mid an d lower thoracic spine. Possible acute to subacute fracture through the T7 anterior bridging endplate spur here, refer to sag ittal images 66 through 70. ABDOMEN: Low attenuation of the hepatic parenchyma may reflect fatty infiltration. Cholecystectomy clips. No e vidence of biliary ductal dilatation. Tiny renal cortical cyst measuring 7 mm in the right lobe is un changed. Adrenal glands, kidneys, spleen, and atrophic pancreas show no gross abnormality. Bilateral scattered calcifications and plaque infrarenal abdominal aorta. No mesenteric or retroperit shipley lymphadenopathy. No dilated small bowel, free fluid, or free air. Scattered mild to moderate stool. No pericolonic inflammatory change. Pelvis: Bladder is urine distended. Uterus surgically absent. Neither ovary is visualized. No abnormal fluid collection in the pelvis or pelvic lymphadenopathy. Small pelvic phleboliths. Bones: ACDF hardware and mid to lower lumbar fusion hardware with laminectomies. DISH in the mid to lower t horacic spine as mentioned above along with findings at T7. Mild degenerative change of the SI joints . Moderate to severe degenerative change right glenoid humeral joint. IMPRESSION: 1. 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 THERE IS RIGHT LATERAL PARASPINAL SOFT TISSUE THICKE SHELLIE AT THE T7 LEVEL WITH POSSIBLE UNDERLYING ACUTE TO SUBACUTE FRACTURE THROUGH THE ANTERIOR BRIDGIN G ENDPLATE SPUR HERE AT T7. CORRELATE FOR ANY FOCAL PAIN. CONSIDER SHORT INTERVAL FOLLOW-UP IF CLINIC AL CONCERN FOR SOFT TISSUE SWELLING TO BE ON AN INFECTIOUS BASIS. NO ENDPLATE EROSION HERE TO CLEARLY INDICATE A DISCITIS OSTEOMYELITIS AT THIS TIME. 2. SOME MINIMAL GROUNDGLASS DENSITIES IN THE BILATERAL UPPER LOBES COULD REPRESENT SMALL, NONSPECIFIC INFECTIOUS/INFLAMMATORY FOCI. 3. BACKGROUND COPD WITH MILD EMPHYSEMA. HEPATIC STEATOSIS.
[2023-12-12 13:00] LABS: HGB 15.9 g/dL (12.0-15.0); MCHC 32.4 g/dL (32.0-37.0); MCV 101.7 FL (80.0-97.0); Mean Platelet Volume 10.9 FL (9.5-12.2); NRBC Per 100 WBC 0 X 10*3/uL (0.00-0.01); Platelet Count 181 X 10*3/uL (140-440); RBC 4.82 X 10*6/uL (4.10-5.20); RDW 14.9 % (11.5-14.5); WBC 6.38 X 10*3/uL (4.50-10.00)
[2023-12-12 13:10] LABS: Blood Urea Nitrogen 12.4 mg/dL (9.0-27.0); Carbon Dioxide 25.8 mmol/L (21.6-31.8); Chloride 105 mmol/L (96-109); Glucose 105 mg/dL (70-110); Potassium 4.2 mmol/L (3.5-5.5); Sodium 141 mmol/L (135-145)
[2023-12-12 14:51] VITALS: BP 100/51; PULSE 55; RESP 19; TEMP 98.1
--- NOTE | 2023-12-12 15:50 | P.DS ---
Providers Date of admission: 12/10/23 21:05 Expected date of discharge: 12/12/23 Attending physician: Roland Berger MD Consults: 12/10/23 21:03 Consult Physician Urgent Consulting Provider: [facility] Consult Reason/Comments: Chest pain Do you want consulting provider notified?: Yes Primary care physician: Nathanael [facility] Hospital Course: Discharge Diagnosis: Accelerated hypertension Fatigue with diaphoresis Dyslipidemia Coronary artery disease status post multiple stents History of prior stroke Hospital Course: Patient is a 63-year-old female with history of coronary artery disease status post stenting, hypertension, dyslipidemia, and fibromyalgia who presented to the emergency department with chest heaviness worsened with exertion. In the ER she underwent an extensive evaluation initial vital signs were within normal limits she then spiked 1 temperature of 100. Initial laboratory analysis included CBC, coags, CMP, troponin all which were unremarkable. Influenza A/B/RSV/COVID-19 testing was negative. Chest x-ray demonstrated stable findings. CT brain showed no acute process. She was placed in observation for chest pain. She was given a dose of aspirin, Lasix, and Ativan in the emergency department. She also had Nitropaste placed. Her troponins were trended and remained negative. Cardiology was consulted. They recommended adding cozaar for increased BP, and lipitor for dyslipidemia. I was able to discuss this case with her primary care physician. He does state he directed her to the emergency department as she called him and had a systolic blood pressure in the 200s along with her diaphoresis. They have been working up her persistent diaphoresis in the outpatient setting and she has undergone multiple tests including TSH, hepatitis testing, HIV testing, SPEP, and CBC with differential and slide review. He states his next course of action would have been a CT chest abdomen and pelvis to look for signs of occult malignancy. This was preformed and demonstrated Changes around T7, some minimal groud glass densities in the b/l upper lobes which could present infectious/inflamatory foci, hepatic steatosis. Her BP was well controlled and she was determined stable for dsicharge. I did disucss her case iwmaya Shetty and he is not concerned at this time for infectious etiology of her back pain but will continue to see her in the clinic, and has up coming surgery planned for her. I discussed with the patient that she will continue her evaluation for diaphoreiss in the outpatient setting but with testing preformed here she does not require conitnued hospitalization at this time. Follow-up: Dr. Nova in 2 weeks, Dr. Lim in 1 to 2 days, Dr. Dorantes in 2 weeks. New prescriptions include Lipitor 40 mg and Cozaar 25 mg daily. Patient will continue to keep a daily blood pressure log. Of note her TSH is mildly elevated at 9, however it had been for approximately 2 days prior. Recommend repeating in the outpatient setting for confirmation. Patient seen and examined at bedside. She continues to have some diaphoresis. Still denies any chest pain. She has back pain which she is getting worked up with Dr. Monroy seen and states that she has surgery planned on March 08. Vital signs reviewed and stable. General: Nontoxic, no distress, appears at stated age Cardiovascular: S1S2 reg, no murmur, positive posterior tibial pulse bilateral, Lungs: CTA bilateral, no rhonchi, no rales, no accessory muscle use Abdominal: Soft, nontender to palpation, no guarding, no appreciable organomegaly Ext: No gross muscle atrophy, no edema b/l lower extremities, no contractures Neuro: CN II-XI grossly intact, no focal neuro deficits Psych: Alert, oriented, appropriate affect A total of 35 minutes of time were spent preparing this complex discharge summary. Patient was discharged on 12/12/23. This dictation was prepared using qualifyor voice recognition software. Though every attempt is made to correct errors during dictation some may still exist. Plan - Discharge Summary Discharge Rx Participant: Yes New Discharge Prescriptions: New Atorvastatin [Lipitor] 40 mg PO HS #30 tab Losartan [Cozaar] 25 mg PO DAILY #30 tab Continue Oxybutynin Chloride [oxyBUTYnin chloride ER] 10 mg PO HS Pregabalin [Lyrica] 150 mg PO TID #30 cap oxyCODONE ER [OxyCONTIN] 15 mg PO Q12HR Cholecalciferol (Vitamin D3) [Vitamin D3 (50 Mcg = 2000 Iu)] 50 mcg PO DAILY Isosorbide Mononitrate [Imdur] 120 mg PO DAILY Levothyroxine Sodium [Synthroid] 125 mcg PO DAILY Multivitamins, Thera [Multivitamin (formulary)] 1 tab PO DAILY QUEtiapine [SEROquel] 400 mg PO HS Metoprolol Succinate (ER) [Toprol XL] 25 mg PO DAILY DULoxetine HCL [Cymbalta] 120 mg PO HS oxyCODONE-APAP 10-325MG [Percocet 10-325 mg] 1 tab PO BID PRN PRN Reason: Pain Clopidogrel [Plavix] 75 mg PO DAILY Amitriptyline HCl [Elavil] 30 mg PO HS Vitamin C/Biotin [Hair, Skin and Nails Chew] 1 tab PO DAILY Discharge Medication List Metoprolol Succinate (ER) [Toprol XL] 25 mg PO DAILY 07/10/21 [History] DULoxetine HCL [Cymbalta] 120 mg PO HS 10/30/22 [History] Oxybutynin Chloride [oxyBUTYnin chloride ER] 10 mg PO HS 10/30/22 [History] Pregabalin [Lyrica] 150 mg PO TID #30 cap 12/23/22 [Rx] Clopidogrel [Plavix] 75 mg PO DAILY 10/15/23 [History] oxyCODONE ER [OxyCONTIN] 15 mg PO Q12HR 10/15/23 [History] oxyCODONE-APAP 10-325MG [Percocet 10-325 mg] 1 tab PO BID PRN 10/15/23 [History] Amitriptyline HCl [Elavil] 30 mg PO HS 12/10/23 [History] Cholecalciferol (Vitamin D3) [Vitamin D3 (50 Mcg = 2000 Iu)] 50 mcg PO DAILY 12/10/23 [History] Isosorbide Mononitrate [Imdur] 120 mg PO DAILY 12/10/23 [History] Levothyroxine Sodium [Synthroid] 125 mcg PO DAILY 12/10/23 [History] Multivitamins, Thera [Multivitamin (formulary)] 1 tab PO DAILY 12/10/23 [History] QUEtiapine [SEROquel] 400 mg PO HS 12/10/23 [History] Vitamin C/Biotin [Hair, Skin and Nails Chew] 1 tab PO DAILY 12/10/23 [History] Atorvastatin [Lipitor] 40 mg PO HS #30 tab 12/12/23 [Rx] Losartan [Cozaar] 25 mg PO DAILY #30 tab 12/12/23 [Rx] Follow up Appointment(s)/Referral(s): Bjorn Dorantes MD [STAFF PHYSICIAN] - 2 Weeks (office is closed at time of discharge. Please call for follow-up appointment.) Nathanael Nogueira DO [Primary Care Provider] - 1-2 days (Office is closed at time of discharge. Please call for follow-up appointment.) Nima Nova DO [Doctor of Osteopathic Medicine] - 2 Weeks (Office is closed at time of discharge. Please call for follow-up appointment.) Activity/Diet/Wound Care/Special Instructions: Activity: tolerated Diet: Heart healthy Special Instructions: Please continue to monitor your blood pressures daily. Make a log to bring to you with your appointment for Dr. Dorantes and Dr. Nogueira. Thank you for allowing us to entrusting your care, we wish you well on your journey to better health Discharge Disposition: HOME SELF-CARE
--- NOTE | 2023-12-12 16:57 | P.PN ---
Subjective Progress Note Date: 12/12/23 HISTORY OF PRESENT ILLNESS: This is a 63-year-old female with a past medical history significant for co ronary artery disease with previous stenting, hypertension, hyperlipidemia, and hypothyroidism. Patient follows in the office with Dr. Dorantes. We have been asked to see the patient in consultation for chest pain. Patient examined at the bedside in the emergency room. Patient states she presented to the hospital with a chief complaint of sweating. The patient reports she has been sweating at night significantly. She reports going through 2-3 starts at night. She reports that she is tired and feels exhausted. She denies any runny nose, sore throat, or fever at home. She denies having any chest pain or shortness of breath with ambulation over the past few weeks. She reports mild vague chest discomfort overnight. Blood pressures are elevated this morning with a systolic in the 150s. DIAGNOSTICS: - EKG reveals sinus mechanism with nonspecific ST-T wave changes. These changes are evident on previous EKGs as well.. - Chest xray negative for acute process. - Laboratory data: WBC 8.5. Hemoglobin 14.8. Platelet count 163. Sodium 141. Potassium 3.6. BUN 12. Creatinine 0.65. Troponin negative x 3. - Current home cardiac medications include Imdur 120 mg, Plavix 75 mg daily, metoprolol succinate 25 mg daily. - Most recent echocardiogram obtained in 11/2022 revealed ejection fraction 50 to 55% with mild LVH - Cardiac catheterization history: 12/2022 revealing no significant disease in the proximal RCA that was stented. Branch of the RCA has a 60 to 70% narrowing. Major diagonal has a 60 to 70% narrowing. LAD is widely patent. Left main and circumflex are free of significant disease. Progress note 12/12/2023 Patient is doing well from cardiovascular standpoint. She denies having any chest pain chest pressure. Hemodynamically stable PHYSICAL EXAM: VITAL SIGNS: Reviewed. GENERAL: Well-developed in no acute distress. HEENT: Head is normocephalic. Pupils are equal, round. Sclerae anicteric. Mucous membranes of the mouth are moist. Neck supple. No JVD or thyromegaly LUNGS: Respirations even and unlabored. Lungs essentially clear to auscultation bilaterally. HEART: Regular rate and rhythm. S1 and S2 heard. ABDOMEN: Soft. Nondistended. Nontender. EXTREMITIES: Normal range of motion. No clubbing or cyanosis. Peripheral pulses intact. No lower extremity edema NEUROLOGIC: Awake and alert. Oriented x 3. ASSESSMENT: Generalized weakness with significant diaphoresis, per patient Mild vague chest discomfort, ACS ruled out Coronary artery disease with previous stenting of the RCA, 2013, and LAD, 2018 Hyperlipidemia, LDL 166 Hypertension Hypothyroidism PLAN: Patient is ruled out of acute coronary syndrome. Her echocardiogram showed a preserved LV size and systolic function with no significant valvular abnormality. Considering her symptoms of diaphoresis and fatigue, I would recommend an outpatient Lexiscan nuclear stress test to evaluate for her bypass grafts. Continue plavix. Patient not on a statin on an outpatient basis. LDL 166. Will begin Lipitor 40 mg at night Start losartan 25 mg daily for optimal blood pressure control as blood pressure is running in the 150s this morning Patient's ESR is normal. Patient is cleared to be discharged from cardiovascular standpoint. Outpatient follow-up and stress test Objective - Vital Signs Vital signs: Vital Signs Temp 98.1 F 12/12/23 13:44 Pulse 55 L 12/12/23 13:44 Resp 19 12/12/23 13:44 BP 100/51 12/12/23 13:44 Pulse Ox 95 12/12/23 13:44 FiO2 Intake & Output 12/11/23 12/12/23 12/12/23 18:59 06:59 18:59 Intake Total 720 Balance 720 Weight 76.5 kg Intake: Oral 720 Other: # Voids 1 4 3 - Labs CBC & Chem 7: 12/12/23 07:21 12/12/23 07:21 Labs: Abnormal Lab Results - Last 24 Hours (Table) 12/12/23 Range/Units 07:21 Hgb 15.9 H (12.0-15.0) g/dL Hct 49.0 H (37.2-46.3) % MCV 101.7 H (80.0-97.0) FL MCH 33.0 H (27.0-32.0) pg RDW 14.9 H (11.5-14.5) %
== END 2023-12-12 18:01 | disposition home or self-care (01) ==
LOC: EC 18:34 → 3SCARD 21:05 → 4SSUR 12-11 20:58
PROVIDERS: ADMIT Internal Medicine; ATTEND Internal Medicine
DX: I10 Essential (primary) hypertension (principal); R53.83 Other fatigue; E78.5 Hyperlipidemia, unspecified; I25.10 Atherosclerotic heart disease of native coronary artery without angina pectoris; M79.7 Fibromyalgia; I25.2 Old myocardial infarction; Z86.14 Personal history of Methicillin resistant Staphylococcus aureus infection; F17.210 Nicotine dependence, cigarettes, uncomplicated; Z79.899 Other long term (current) drug therapy; Z79.02 Long term (current) use of antithrombotics/antiplatelets; Z79.890 Hormone replacement therapy; Z11.52 Encounter for screening for COVID-19; Z88.0 Allergy status to penicillin; Z88.5 Allergy status to narcotic agent; Z95.5 Presence of coronary angioplasty implant and graft; Z86.73 Personal history of transient ischemic attack (TIA), and cerebral infarction without residual deficits; Z88.1 Allergy status to other antibiotic agents; Z88.6 Allergy status to analgesic agent; Z88.8 Allergy status to other drugs, medicaments and biological substances; Z98.1 Arthrodesis status; Z79.82 Long term (current) use of aspirin
CPT/HCPCS: 96361; 96365; 96366 ×2; 96372 ×2; 96375 ×2; 99285; 36415; 93005; 93306; 84439; 82747; 80061; 80053; 80048; 85652; 84443; 82607; 83735; 84484 ×2; 85025; 85027; 85610; 85730; 86140; 87636; 71046; 70450; 71260; 74177; G0378 ×4; J2060; J1644 ×2; J1940; J1170 ×3; Q9967

== ENCOUNTER → 2024-03-02 | Outpatient (CLI) | payer MEDICARE ==
--- NOTE | 2024-03-02 22:33 | CT ---
EXAMINATION TYPE: CT lumbar spine wo con DATE OF EXAM: 03/02/2024 COMPARISON: 10/15/2023 HISTORY: 63-year-old female M54.16 L RADICULOPATHY M51.26 OTHER INTERVERTEBRAL, low back pain TECHNIQUE: Contiguous axial scanning of the lumbar spine without IV contrast. Coronal and sagittal re constructions performed. CT DLP: 1277 mGycm Automated exposure control for dose reduction was used. FINDINGS: Postsurgical change of L3-S1 posterior fusion with corresponding laminectomy. On the left, lumbar tra nspedicular screws extend from L3 through S1. On the right, the screws extend from L3 to L5. Possible small fluid collection within the right laminectomy bed measuring 3.8 cm craniocaudal by 1.5 cm AP by 2.7 cm wide. For example, axial image 55 and sagittal image 32. Mild to moderate degenerative disc disease visualized lower thoracic and upper to mid lumbar spine. P osterior discussed with the complexes result in variable mild narrowing of the spinal canal. No high- grade canal compromise. Hypertrophic facet arthropathy is present throughout. Degenerative trace grade 1 retrolisthesis T12-L1, L1-L2, L2-L3. Fixed grade 1 anterolisthesis L4-L5. Vertebral body heights are preserved. On the right, changes result in severe neural foraminal stenosis at L3-L4 and moderate to severe L5-S 1. Mild at both L1-L2 and L2-L3. On the left, changes as noted moderate neuroforaminal stenosis at L3-L4 and mild at multiple addition al levels. Relatively similar appearance compared to the one 08/24/2024 exam. Mild degenerative change of the bilateral SI joints. Incidental small posterior splenule. IMPRESSION: 1. STATUS POST L3-S1 POSTERIOR FUSION WITH CORRESPONDING LAMINECTOMIES. THERE MAY BE A SMALL 3.8 X 2. 7 X 1.5 CM FLUID COLLECTION WITHIN THE RIGHT LAMINECTOMY BED, POSSIBLE POSTOPERATIVE SEROMA. CLINICAL LY CORRELATE. 2. [id number] DEGENERATIVE DISC DISEASE AND HYPERTROPHIC FACET ARTHROPATHY THROUGHOUT THE NONFU SED LEVELS WITH SIMILAR DEGENERATIVE GRADE 1 RETROLISTHESIS T12-L3 LEVELS. 3. VARIABLE MILD SPINAL CANAL STENOSES. NO HIGH-GRADE CANAL COMPROMISE. 4. MILD AND MODERATE NEUROFORAMINAL STENOSES OUTLINED ABOVE, HOWEVER, SEVERE ON THE RIGHT AT L3-L4 AND MODERATE TO SEVERE ON THE RIGHT AT L5-S1.
--- NOTE | 2024-03-02 22:41 | CT ---
EXAMINATION TYPE: CT pelvis wo con DATE OF EXAM: 03/02/2024 COMPARISON: CT 12/11/2023 HISTORY: 63-year-old female complaining of low back and bilateral hip pain. M54.16 L RADICULOPATHY M 51.26 OTHER INTERVERTEBRAL TECHNIQUE: Contiguous axial scanning of the pelvis without IV contrast. Coronal and sagittal reconstr uctions performed. CT DLP: 443.9 mGycm Automated exposure control for dose reduction was used. FINDINGS: Mild degenerative changes of bilateral SI joints with vacuum phenomenon, some subarticular sclerosis, and small amount of cystic change. Mild to moderate degenerative change of the right hip and mild at the left hip. Enthesopathy at the bilateral hamstrings origins. Lumbar spine reported separately. Generator device located along the right posterior upper gluteal region. Sacral stimulator lead enter s via the S3-S4 neural foramen. On the right, there is narrowing of the space between the lesser trochanter and ischial tuberosity me asuring only 3.5 mm. 7 mm on the left. Uterus surgically absent. The ovaries are identified. IMPRESSION: 1. MILD TO MODERATE RIGHT HIP OA AND MILD LEFT HIP OA. MILD BILATERAL SI JOINT OA. 2. BILATERAL NARROWING OF THE SPACE BETWEEN THE LESSER TROCHANTER AND ISCHIAL TUBEROSITY MEASURING LITTLE 3.5 MM ON THE RIGHT. FINDINGS MAY BE SEEN IN THE SETTING OF HISTORY OF FEMORAL IMPINGEMENT . CLINICALLY CORRELATE. 3. RIGHT-SIDED SACRAL STIMULATOR LEAD.
== END | disposition home or self-care (01) ==
LOC: RADCTMAIN 14:31
PROVIDERS: ATTEND Orthopaedic Surgery
DX: M51.15 Intervertebral disc disorders with radiculopathy, thoracolumbar region (principal); M47.25 Other spondylosis with radiculopathy, thoracolumbar region; M43.15 Spondylolisthesis, thoracolumbar region; M48.061 Spinal stenosis, lumbar region without neurogenic claudication; M99.73 Connective tissue and disc stenosis of intervertebral foramina of lumbar region; M16.0 Bilateral primary osteoarthritis of hip; M46.1 Sacroiliitis, not elsewhere classified; Z98.1 Arthrodesis status
CPT/HCPCS: 72131; 72192

== ENCOUNTER → 2024-03-11 | Outpatient (CLI) | payer MEDICARE ==
[2024-03-12 04:01] LABS: HCT 50.7 % (37.2-46.3); HGB 16.7 g/dL (12.0-15.0); MCH 32.8 pg (27.0-32.0); MCHC 32.9 g/dL (32.0-37.0); MCV 99.6 FL (80.0-97.0); Mean Platelet Volume 11.7 FL (9.5-12.2); NRBC Per 100 WBC 0 X 10*3/uL (0.00-0.01); Platelet Count 181 X 10*3/uL (140-440); RBC 5.09 X 10*6/uL (4.10-5.20); RDW 13.3 % (11.5-14.5); WBC 6.93 X 10*3/uL (4.50-10.00)
[2024-03-12 04:30] LABS: Erythrocyte Sedimentation Rate 22 mm/Hr (0-30)
[2024-03-12 04:43] LABS: ALT 17 U/L (8-44); AST 25 U/L (13-35); Albumin 4.5 g/dL (3.8-4.9); Alkaline Phosphatase 110 U/L (41-126); BUN/Creat Ratio 13.25 Ratio (12.00-20.00); Blood Urea Nitrogen 10.6 mg/dL (9.0-27.0); Calcium 9.4 mg/dL (8.7-10.3); Chloride 105 mmol/L (96-109); Globulin 2.5 g/dL (1.6-3.3); Glucose 92 mg/dL (70-110); Potassium 4.1 mmol/L (3.5-5.5); Sodium 142 mmol/L (135-145); Total Bilirubin 0.3 mg/dL (0.3-1.2)
== END | disposition home or self-care (01) ==
LOC: LABWHC1 16:01
PROVIDERS: ATTEND Orthopaedic Surgery
DX: Z01.812 Encounter for preprocedural laboratory examination (principal)
CPT/HCPCS: 36415; 80053; 85027; 85652; 86140

== ENCOUNTER → 2024-05-20 | Outpatient (CLI) | payer MEDICARE | END | disposition home or self-care (01) | LOC: LABPRL 12:07 | PROVIDERS: ATTEND Internal Medicine | DX: Z53.9 Procedure and treatment not carried out, unspecified reason (principal) ==

== ENCOUNTER 2024-05-30 10:15 | Inpatient (IN) | payer MEDICARE ==
[~2024-05-30 10:15] MED LIST changes: -ACETAMINOPHEN TAB 500 MG TAB PO PRN; -GABAPENTIN 300 MG CAP PO PRN; -ONDANSETRON 4 MG/2 ML VIAL IVP PRN; +TRANEXAMIC 1,000 MG/100ML-NACL 1,000 MG in SALINE 1 100ML.BAG IVPB PRN; -TRANEXAMIC ACID IN NACL,ISO-OS 1,000 MG in SALINE 1 100ML.BAG IVPB PRN
[2024-05-30] MEDS: IV FLUID CONTINUATION 1,000 ML IV ONE ×4 (11:44)
[2024-05-30] MEDS: ACETAMINOPHEN TAB 500 MG TAB PO PRN (11:51)
[2024-05-30] MEDS: GABAPENTIN 300 MG CAP PO PRN (11:51)
[2024-05-30] MEDS: ONDANSETRON 4 MG/2 ML VIAL IVP PRN (11:51)
[2024-05-30] MEDS: DEXAMETHASONE SOD PHOSPHATE 4 MG/ML 1 ML VIAL IVP STA (11:55)
[2024-05-30] MEDS: MIDAZOLAM 2 MG/2 ML VIAL IV ONE (12:24)
[2024-05-30] MEDS: fentaNYL (PF) 50 MCG/ML 2 ML AMP IVP PRN (12:25)
--- NOTE | 2024-05-30 12:41 | P.ANPRN ---
Procedure Note - Anesthesia - Invasive Line Right Arterial Line Time Out Performed: Yes (1222) Date of Procedure: 05/30/24 Time of Procedure: 12:23 Location of Patient: PreOp Preparation: Sterile Prep, Sterile Dressing Arterial Line Location: Radial (right) Ultrasound Used: No Purpose - Visualization and Identification of Vasculature: No Needle Guage: 20g Image Stored and Saved: No Narrative: Invasive line placement per sterile protocol utilized. 1 attempt. Bled and flushed. Secured. Sterile dressing.
[2024-05-30] MEDS ORDERED: TRANEXAMIC 1,000 MG/100ML-NACL PREMIX BAG ONE (13:49)
[2024-05-30] MEDS ORDERED: fentaNYL (PF) 50 MCG/ML 2 ML AMP ONE (13:49)
[2024-05-30] MEDS ORDERED: PROPOFOL 10 MG/ML 20 ML VIAL IV ONE (13:49)
[2024-05-30] MEDS ORDERED: HYDROmorphone (PF) 1 MG/ML ONE (13:49)
[2024-05-30] MEDS ORDERED: SUCCINYLCHOLINE CHLORIDE 200 MG/10 ML VIAL IV ONE (13:49)
[2024-05-30] MEDS ORDERED: PHENYLEPHRINE 10 MG/ML VIAL ONE (13:49)
[2024-05-30] MEDS ORDERED: LIDOCAINE 1% INJ 10MG/ML (20 ML MDV) ONE (13:49)
[2024-05-30] MEDS ORDERED: KETAMINE HCL IN 0.9 % NACL 50 MG/5 ML SYRINGE ONE (13:49)
[2024-05-30] MEDS ORDERED: ROCURONIUM 10 MG/ML (5 ML VIAL) IV ONE (13:49)
[2024-05-30] MEDS ORDERED: MIDAZOLAM 2 MG/2 ML VIAL ONE (13:49)
[2024-05-30] MEDS: LACTATED RINGERS 1,000 ML IV ONE ×2 (14:27→18:08)
[2024-05-30] MEDS: ceFAZolin 3,000 MG in SODIUM CHLORIDE 0.9% IRRIGATIO 3,000 ML IRRIGATION ONE (14:29)
[2024-05-30] MEDS: GENTAMICIN 80 MG in SODIUM CHLORIDE 0.9% IRRIGATIO 3,000 ML IRRIGATION ONE (14:29)
[2024-05-30] MEDS: THROMBIN (BOVINE) 5,000 UNIT VIAL TOPICAL ONE (14:29)
[2024-05-30] MEDS ORDERED: ONDANSETRON 4 MG/2 ML VIAL IVP PRN (16:10)
[2024-05-30] MEDS ORDERED: MAGNESIUM HYDROXIDE 2,400 MG/30 ML CUP PO PRN (16:10)
[2024-05-30] MEDS ORDERED: SENNOSIDES-DOCUSATE SODIUM 1 EACH TAB PO PRN (16:10)
[2024-05-30] MEDS ORDERED: oxyCODONE-APAP 5-325MG 1 EACH TAB PO PRN (16:13)
[2024-05-30] MEDS: TOBRAMYCIN SULFATE 1.2 GM VIAL MISCELLANE ONE (17:52)
--- NOTE | 2024-05-30 18:56 | P.OP ---
Date of Procedure: 05/30/24 Preoperative Diagnosis: 1. 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 L3-4 PSEUDOARTHROSIS 3. L4-5 PSEUDOARTHROSIS 4. LUMBAR STENOSIS WITH NEUROGENIC CLAUDICATION 5. LE WEAKNESS 6. LOW BACK PAIN 7. LE RADICULOPATHY Postoperative Diagnosis: 1. 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 L3-4 PSEUDOARTHROSIS 3. L4-5 PSEUDOARTHROSIS 4. LUMBAR STENOSIS WITH NEUROGENIC CLAUDICATION 5. LE WEAKNESS 6. LOW BACK PAIN 7. LE RADICULOPATHY Procedure(s) Performed: 1. L4-5 INTRADISCAL, 3 COLUMN, OSTEOTOMY FOR DEFORMITY CORRECTION 2. L3-4 INTRADISCAL, 3 COLUMN, OSTEOTOMY FOR DEFORMITY CORRECTION 3. L2-3, L3-4 AND L4-5 POSTEROLATERAL AND INTERBODY FUSION 4. SEGMENTAL INSTRUMENTATION L2-PELVIS 5. BILATERAL OPEN SACROILIAC JOINT FUSION 6. ATTACHMENT OF THE CAUDAL SEGMENT OF THE CONSTRUCT TO THE BONY PELVIS NOT SACRUM 7. L2-3, L3-4, L4-5 LAMINECTOMY, FACETECTOMY AND FORAMINOTOMY 8. INSERTION OF BIOMECHANICAL DEVICES L2-3, L3-4, L4-5 9. EXPLORATION OF FUSION L3-S1 10. REMOVAL OF SEGMENTAL HARDWARE L4-5 11. USE OF [employer] NAVIGATION FOR SCREW PLACEMENT MOD 22: THIS CASE TOOK 75% LONGER THAN EXPECTED DUE TO DEGREE OF LUMBAR DISEASE, PATIENT COMORBID CONDITIONS, HIGH SURGICAL RISK GIVEN HER HISTORY ACS WELL CURRENT CONDITION. USE OF IONM ALL SCREWS TESTING > 20mA Implants: -GLOBUS CREO SCREWS AND AMISHA SYSTEM -PROLIFT CAGES 8MM, SHORT X3 -SIROS 60 MM SI SCREWS -AUTOGRAFT, ALLOGRAFT, ARTHROCELL Anesthesia: GETA Surgeon: Nima Nova Manager Pulmonary #1: Reji Means (was present and assisted with all aspecst of the case from incision to screwplacement) Manager Pulmonary #2: Teresa Tellez (was present and assisted with all aspects of the case from screw placement to dressing placement) Estimated Blood Loss (ml): 350 IV fluids (ml): 2,500 Urine output (ml): 550 Pathology: none sent Condition: stable Disposition: PACU Indications for Procedure: Ms. Pérez is a 64 year old female presenting for evaluation of low back and bilateral lower extremity pain. It was my pleasure to have seen and examined Adeline. In our visit today we have had a chance to go over subjective complaints, physical examination findings and treatments including the natural course history without intervention and various interventional options. The patients imaging demonstrates the following findings: On a physical exam, Adeline Pérez demonstrates the following findings: A continued sharp, throbbing pain around the central mid and low back that radiates down into the bilateral lower extremity. She reports continued numbness and tingling throughout the lower extremities. She notes progressive bilateral leg weakness. She states her symptoms have significantly worsened since the time of her last office visit. She states prolonged walking and standing increases her current symptoms. She states her left leg pain terminates around the knee and the right leg goes from the thigh down into the foot. She reports severe sleep disturbances related to her ongoing pain and associated symptoms. I have explained to the patient that as their condition progresses it will cause further neurological deficits and eventual paralysis. Based on the patients imaging, physical exam, and the rapid progression and disabling nature of their symptoms, at this time I recommend surgery in the form of a: REVISION L2-PELVIS DECOMPRESSION & FUSION I discussed the risk and benefits of this procedure at length with Adeline. The patient agreed to consider pursuing the procedure above mentioned. Prior to surgery, they should follow up with her PCP (Cardio, ID, IM etc) for clearance. Questions were invited and answered, and the patient wishes to proceed as outlined below. Currently, I am recommending: REVISION L2-PELVIS DECOMPRESSION & FUSION Description of Procedure: L2-PELVIS DECOMPRESSION AND FUSION (NICOLLE) The patient was seen and examined in the preoperative area. All preoperative protocols were followed. Informed consent was obtained, risks and benefits of the procedure were discussed at length. Risks including bleeding infection damage to the surrounding tissue and risk of reoperation were discussed with the patient. Risk of anesthesia up to and including was discussed with the patient. These are outlined in the risk review. They were willing to accept these risks and all the risks of surgery. The patient was given a weight-based dose of antibiotics in the form of 3 g Ancef. The patient was seen and evaluated by the anesthesia team who deemed them fit for surgery. The site was marked, the patient was willing to proceed with the procedure. The patient was transferred to the operative suite by the Department of anesthesia. They were then drifted off to sleep by the department anesthesia and GETA was performed. The patient tolerated this well. Reaves catheter was placed by nursing staff, a-traumatically. Once confirmation of lines and ventilation the patient was transferred to a prone Trios spine table very carefully. The head was secured and stable. X Ray confirmed alignment. All bony prominences including wrists, elbows, axilla, chest, hips, and thighs, and feet were padded very well. Special attention was paid to the genitalia, and these were padded accordingly. SCDs were placed on bilateral lower extremities and were connected. Arms were well padded and placed at 90/90 up and out and well padded. Safety strap and tape placed on the patient. Once in position, again we confirmed good ventilation capabilities and that lines were running appropriately. The patients lumbosacral pelvic was then exposed. Hair was removed for incision. 1010s were placed outlining the incision site. Standard alcohol was used to clean the incision site and allowed to dry. C-arm was used to bio-lexie the patient and confirm level for incision which was marked with a skin marker. Operative briefing was performed with all teams and everyone in agreement to proceed. The patient was then prepped and draped in a normal sterile fashion. Timeout was then performed, and all parties agreed with the procedure to be performed. Midline skin incision was then made over the previously bookmarked area and dissection taken down to the lumbosacral fascia which was identified and cleaned with a brooke. There was excessive sub-q adipose that was obtrusive and needed to be retracted. Once midline was identified, fasciotomy was made over the SP of L1-S1 and pelvis. Subperiosteal dissection was then taken down over the lamina and facet joints and TPs were exposed and trough made posterolateral. TPs were then decorticated with a high speed alessia for lateral fusion. Dissection was taken out over the sacrum to the pelvis. SI joint identified and modified Mendoza starting point for pelvic screws identified as well. Retractors placed. Wound was irrigated and lateral image with penfield 4 placed at the pars of L4 confirmed levels for operation. Screws were then tested for purchase and all were good purchase except for right side L4 which was removed. SP clamp was then placed for the [employer] navigation tracker and secured. The wound was then filled with NSS and Z-drape. A 3D Ziehm spin was then obtained and registered. Once confirmation of accuracy screws were then placed from L2-Pelvis using navigation. Navigated high speed alessia was used to make a ems helicopter pilot hole followed by a navigated awl-tap passed through the pedicle into the body. A ball tip probe then confirmed within the pedicle. Screw was then measured and placed using a navigated screwdriver. After screws were placed from L2-S1, AP image confirmed safe placement of screws. Navigation was then used to place Pelvis screws b/l and b/l SI fusion screws. Starting point selected just lateral to the SI joint and S2 pseudo facet. Navigated alessia was used to make starting point and then navigated awl tap followed by navigated screw milk driver with measured screw. Once the pelvic screws were in place the SI joints were decorticated with navigated alessia and then b/l SI screws were placed in an open SIJ fusion construct for long construct stability. This was repeated on the contralateral side. Screws were then visualized and appeared safe. Screws were then tested, and reliably tested screws tested above 20 mA. We then proceeded to decompression and interbody placement. Starting at L4-5, laminectomy, facetectomy and foraminotomies were performed using high speed bur, Kerrison rongeur. There was exuberant bone formation, osteophytes and scar tissue surrounding these joints as well as the dura. Once exposed the neural elements were protected and an intradiscal osteotomy, 3 column, was performed for deformity correction at L5-S1. Osteotome was used to make osteotomy in L4 and L5 and for complete disc removal. This was passed into the anterior 1/3 of L4. This allowed for loosening of this level and correction. A cage was then selected based on shaving and trials. Bleeding endplates were encountered and cartilage removed. Autograft, allograft were then placed anterior to the cage. The cage was then impacted into place under lateral imaging while protecting neural elements. The cage was then expanded into position and showed good lift and correction. Rastafarian of lordosis and height achieved. Meticulous hemostasis then performed. Cage was backfilled with DBM and the area irrigated. We then proceeded to L3-4 At L3-4, laminectomy, facetectomy and foraminotomy was performed as described above. Again, exuberant scar tissue and bone formation was encountered. There was also a large disc osteophyte complex that was identified once disc space was found. The dura was carefully dissected off this anteriorly and b/l. Once encountered, the disc space was then accessed in a similar fashion and neural elements protected. Intradiscal, 3 column osteotomies, for deformity correction was then performed again at this level as described above. Once completed and complete discectomy performed there was good mobility at this level. Cage was then sized and selected. Autograft and allograft was then placed anterior in the disc space and the cage was then inserted and impacted into place under lateral. AP image, as before, was taken to ensure midline placement. The cage was then expanded into position. The cage was tested and was stable. The wound was irrigated. Meticulous hemostasis then performed, and attention turned to L2-3. At L2-3 again laminectomy, facetectomy and foraminotomy were performed. The elements were then protected, and disc space accessed. Sequential shaving performed until desired height and lordosis. Cage selected, and graft placed anterior to the cage within the disc space. Cage was then placed under lateral image, expanded and had good height, lordosis and deformity correction. The wound was irrigated, and meticulous hemostasis performed once again. Attention was then drawn to amisha placement. Rods were selected, measured, cut and bent to appropriate lordosis. They were then secured into pelvic screws b/l. Sequential reduction then done into each screw and set screw placed. Set screws were then final tightened and lateral image showed good lordosis reduction with increase around 10 deg from starting. Once rods were secured, cross links were selected and placed and final tightened. The wound was then irrigated with 3L Ancef irrigation, 3L gentamicin irrigation and 3L NSS. Surgicel was then placed on the dura, which was inspected and had no injury. Then, in the posterolateral gutter was placed, MagnatOs, Autograft and allograft. This was impacted into position and surgical placed over it. 1.5g Tobra powder was then placed deep in the wound. A deep, subfascial drain was placed and a superficial facial drain placed. We then proceeded with layered closure. #1 PDS placed in the deep fascia. 0 Vicryl placed in the deep subq, 2-0 placed in the superficial subq and 2-0 nylon placed in the skin. The wound edges approximated very well. The wound was then cleaned with ETOH and dressed with optifoam dressing, drain sponges and tegaderms. Drains sewed into position. IONM confirmed no changes. The patient was then transferred off the [facility] spine table to their hospital bed a-traumatically. Drains continued to hold suction. The patient was then extubated and transferred to the ICU in stable condition having tolerated the procedure with no complications.
[2024-05-30] MEDS: HYDROmorphone 0.5 MG/0.5 ML SYRINGE IVP PRN (19:15)
[2024-05-30] MEDS ORDERED: fentaNYL (PF) 50 MCG/ML 2 ML AMP IVP PRN (19:56)
[2024-05-30] MEDS: fentaNYL (PF) 50 MCG/ML 2 ML AMP IVP ONE (19:59)
--- NOTE | 2024-05-30 20:14 | FL ---
EXAMINATION TYPE: FL guidance operating room, XR lumbar spine 2 or 3V Intraoperative/procedural fluor oscopic services were provided. Total fluoroscopy time is 1.03 mins with a total of 6 submitted image s to PACS. Please see the operative/procedural note for further details. DAP: 11.9674 mGym2 Gycm2 uGym2 cGycm2 Lumbar 2 to Pelvis Revision with Decompression and Fusion. 6 images scanned. 1.03 mins fluoro DAP=11.9674 Dr. Nova
[2024-05-30] MEDS: ACETAMINOPHEN TAB 325 MG TAB PO SCH (21:21)
[2024-05-30] MEDS: oxyCODONE-APAP 10-325MG 1 EACH TAB PO PRN (21:32)
[2024-05-30] MEDS: CYCLOBENZAPRINE 5 MG TAB PO PRN (21:33)
--- NOTE | 2024-05-30 22:32 | CT ---
EXAMINATION TYPE: CT lumbar spine wo con CT DLP: 1393.9 mGycm, Automated exposure control for dose reduction was used. DATE OF EXAM: 05/30/2024 8:45 PM COMPARISON: 03/02/2024. CLINICAL INDICATION: Female, 64 years old with history of s/p L2-pelvis decompr fusion; PHH, L2-pelvi s decompr fusion. TECHNIQUE: Multiple axial images were obtained from the midportion of T11 through the sacroiliac nona nts. Soft tissue and bone windows in coronal and sagittal planes were obtained and reviewed. 3-D ref ormats of the bones were created on a separate workstation and submitted for review. Contrast used: mL of , (None, if empty). Oral contrast used: (None, if empty). FINDINGS: Postsurgical changes to the lumbar spine with fixation hardware at L3 through S1. Discectomy at L2-L3 , L3-L4, L4-L5 and L5-S1. Hardware limits evaluation at these levels. Hardware appears intact. No sisi dence of fracture. Laminectomy changes present some of these levels. Bilateral sacroiliac joint screw s present. Postsurgical changes in the soft tissues with foci of gas present. Drainage catheter with tubing in t he surgical bed. Posterior back skin dilia are present. Atelectasis in the lung base on the left medially. IMPRESSION: Postsurgical changes without evidence of immediate post operative complication.
[2024-05-30] MEDS: HYDROmorphone 1 MG/ML 1 ML SYRINGE IVP PRN (22:34)
[2024-05-30] MEDS: PREGABALIN 75 MG CAP PO SCH (22:35)
--- NOTE | 2024-05-31 05:32 | P.CONS ---
History of Present Illness - Reason for Consult Consult date: 05/31/24 - History of Present Illness Patient is a 64-year-old female with a PMH of hypertension, hyperlipidemia, and hypothyroidism who presents to the emergency room for scheduled lumbosacral laminectomy, osteotomy, and interbody fusion. Patient underwent the procedure earlier today and was seen postoperatively on the surgical unit. She reported ongoing 7 out of 10 diffuse back pain. She denied any additional complaints. R eports having passed urine and flatus. Denied experiencing chest discomfort, shortness of breath, fever, chills, cough, nausea, vomiting, abdominal pain, diarrhea. Reports compliance with all home medications Review of systems: Pertinent positives and negatives as discussed in HPI, a complete review of systems was performed and all other systems are negative. Physical examination: Vital signs reviewed General: non toxic, no distress, appears at stated age, normal weight Derm: no unusual rashes/lesions, warm Head: atraumatic, normocephalic, symmetric Eyes: EOMI, no lid lag, anicteric sclera, pupils equal round reactive to light ENT: Nose and ears atraumatic Neck: No cervical lymphadenopathy, trachea midline, supple Mouth: no lip lesion, mucus membranes moist Cardiovascular: S1S2 reg, no murmur, positive dorsalis pedis pulse bilateral, no edema Lungs: CTA bilateral, no rhonchi, no rales, no accessory muscle use Abdominal: soft, nontender to palpation, no guarding Ext: muscle strength 5 out of 5 in all 4 extremities grossly, no gross muscle atrophy, no contractures, lower back dressing in place clean and dry Neuro: CN II-XI grossly intact, no gross focal neuro deficits Psych: Alert, oriented, appropriate affect Assessment: Chronic conditions: Hypertension, hyperlipidemia, hypothyroidism Status post lumbosacral laminectomy with osteotomy and interbody fusion Data Review: Laboratory evaluation ordered for the a.m. Plan: Resume home medications including Lipitor, Synthroid, Elavil, Imdur, Cymbalta, Toprol, losartan, Lyrica, and Seroquel Defer further resumption of home Plavix to primary surgery service The patient is currently on Percocet, and Dilaudid for pain Defer management of pain control and DVT prophylaxis to primary surgery service We appreciate this opportunity to be involved in this patient's care. We will follow the patient with you. For any further questions, please not hesitate to contact the [facility] inpatient team. Past Medical History Past Medical History: Coronary Artery Disease (CAD), Chest Pain / Angina, Fibromyalgia, Hyperlipidemia, Hypertension, Myocardial Infarction ([place]), Osteoarthritis (OA), Thyroid Disorder Additional Past Medical History / Comment(s): interstitial cystitis; constipation, gallstones, LUMBAR BACK PAIN Last Myocardial Infarction Date:: 2013 History of Any Multi-Drug Resistant Organisms: MRSA Year Discovered:: 2022 MDRO Source:: from surgery Past Surgical History: Back Surgery, Bladder Surgery, Breast Surgery, Cholecystectomy, Heart Catheterization With Stent, Hysterectomy, Orthopedic Surgery Additional Past Surgical History / Comment(s): bladder stimulator, neck surgery, total 6 cardiac stents - back fusion, neck fusion, jeff bunionectomy, revision of back surgery screws, cage and rods were suppose to be placed but DR Nova doesn't see them on imaging. Past Anesthesia/Blood Transfusion Reactions: No Reported Reaction Date of Last Stent Placement:: approx 3 yrs ago Past Psychological History: Anxiety, Bipolar, Depression, Panic Disorder Additional Psychological History / Comment(s): "stress related" Smoking Status: Current every day smoker Past Alcohol Use History: None Reported Additional Past Alcohol Use History / Comment(s): quit smoking 11/2022 Past Drug Use History: Marijuana Additional Drug Use History / Comment(s): occ. - Past Family History Father Family Medical History: Cancer Medications and Allergies Home Medications Medication Instructions Recorded Confirmed Type Metoprolol Succinate (ER) [Toprol 25 mg PO DAILY 07/10/21 05/30/24 History XL] DULoxetine HCL [Cymbalta] 120 mg PO HS 10/30/22 05/30/24 History Oxybutynin Chloride [oxyBUTYnin 10 mg PO HS 10/30/22 05/30/24 History chloride ER] Pregabalin [Lyrica] 150 mg PO TID #30 cap 12/23/22 05/30/24 Rx Clopidogrel [Plavix] 75 mg PO DAILY 10/15/23 05/30/24 History oxyCODONE ER [OxyCONTIN] 15 mg PO Q12HR 10/15/23 05/30/24 History oxyCODONE-APAP 10-325MG [Percocet 1 tab PO BID PRN 10/15/23 05/30/24 History 10-325 mg] Amitriptyline HCl [Elavil] 30 mg PO HS 12/10/23 05/30/24 History Cholecalciferol (Vitamin D3) 50 mcg PO DAILY 12/10/23 05/30/24 History [Vitamin D3 (50 Mcg = 2000 Iu)] Isosorbide Mononitrate [Imdur] 120 mg PO DAILY 12/10/23 05/30/24 History Levothyroxine Sodium [Synthroid] 125 mcg PO DAILY 12/10/23 05/30/24 History Multivitamins, Thera [Multivitamin 1 tab PO DAILY 12/10/23 05/30/24 History (formulary)] QUEtiapine [SEROquel] 400 mg PO HS 12/10/23 05/30/24 History Vitamin C/Biotin [Hair, Skin and 1 tab PO DAILY 12/10/23 05/30/24 History Nails Chew] Atorvastatin [Lipitor] 40 mg PO HS #30 tab 12/12/23 05/30/24 Rx Losartan [Cozaar] 25 mg PO DAILY #30 tab 12/12/23 05/30/24 Rx Allergies Allergy/AdvReac Type Severity Reaction Status Date / Time ciprofloxacin [From Cipro] Allergy Anaphylaxis Verified 12/10/23 22:40 morphine Allergy Hallucinati Verified 12/10/23 22:40 ons Penicillins Allergy Swelling/Hi Verified 12/10/23 22:40 ves vancomycin Allergy Dyspnea Verified 12/10/23 22:40 ketorolac tromethamine AdvReac Itching Verified 12/10/23 22:40 [From Toradol] NSAIDS (Non-Steroidal AdvReac STOMACH Verified 12/10/23 22:40 Anti-Inflamma ULCER Physical Exam Vitals: Vital Signs Temp Pulse Pulse Resp BP BP BP 05/31/24 02:00 97.7 F 63 138/58 05/30/24 22:30 98.3 F 76 163/78 05/30/24 21:28 98.3 F 76 05/30/24 20:09 77 18 160/73 05/30/24 19:54 77 18 159/73 05/30/24 19:39 79 20 158/71 05/30/24 19:24 79 18 163/71 05/30/24 19:09 87 22 168/73 05/30/24 18:54 97.6 F 84 16 160/76 05/30/24 12:30 54 L 16 122/63 05/30/24 11:12 97.1 F L 56 L 16 119/60 BP Pulse Ox 05/31/24 02:00 96 05/30/24 22:30 95 05/30/24 21:28 163/78 95 05/30/24 20:09 94 L 05/30/24 19:54 96 05/30/24 19:39 94 L 05/30/24 19:24 96 05/30/24 19:09 164/77 93 L 05/30/24 18:54 158/72 94 L 05/30/24 12:30 95 05/30/24 11:12 97 Intake and Output 05/30/24 05/30/24 05/31/24 14:59 22:59 06:59 Intake Total 2252 700 Output Total 300 750 500 Balance 1951 Intake: IV 2252 700 Output: Urine 300 400 500 Estimated Blood Loss 350 Other: Voiding Method Indwelling Catheter Weight 73.4 kg 73.4 kg
[2024-05-31] MEDS: LEVOTHYROXINE 125 MCG TAB PO SCH (06:48)
[2024-05-31 06:55] LABS: Basophils % (A) 0 %; Eosinophils # (A) 0.1 k/uL (0-0.7); Eosinophils % (A) 0 %; HCT 39.6 % (34.0-46.0); Lymphocytes # (A) 1.2 k/uL (1.0-4.8); Lymphocytes % (A) 10 %; MCH 33.5 pg (25.0-35.0); MCHC 32.9 g/dL (31.0-37.0); Macrocytosis Slight; Mean Platelet Volume 9.2; Monocytes # (A) 0.6 k/uL (0-1.0); Monocytes % (A) 5 %; Neutrophils # (A) 9.5 k/uL (1.3-7.7); Neutrophils % (A) 84 %; Platelet Count 128 k/uL (150-450); RBC 3.88 m/uL (3.80-5.40); RDW 13.1 % (11.5-15.5); WBC 11.3 k/uL (3.8-10.6)
[2024-05-31] MEDS: SENNOSIDES-DOCUSATE SODIUM 1 EACH TAB PO SCH (07:57)
[2024-05-31] MEDS: LOSARTAN 25 MG TAB PO SCH (07:57)
[2024-05-31] MEDS: METOPROLOL SUCCINATE (ER) 25 MG TAB.ER.24H PO SCH (07:57)
[2024-05-31] MEDS: ISOSORBIDE MONONITRATE ER 60 MG TAB.ER.24H PO SCH (07:57)
--- NOTE | 2024-05-31 08:53 | P.PN ---
Subjective Progress Note Date: 05/31/24 Principal diagnosis: 1. 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 L3-L4, L4-L5 pseudoarthrosis 3. Lumbar stenosis with neurogenic claudication 4. Bilateral lower extremity radiculopathy with weakness 5. Mechanical low back pain Patient seen and examined this morning. Patient is resting comfortably in bed, assisted patient to sit at bedside. Patient tolerated activity well. She does report that her pain is managed better this morning than last night. Surgical incision to the lumbar spine, dressing is clean dry and intact with Hemovac present with 120 mL output overnight. Bullard catheter may be removed this morning. Patient states she is looking forward to working with physical therapy today. She does report that she is anticipating subacute rehab at discharge due to her living alone and having 14 stairs to climb to get to her room. Encourage patient to utilize incentive spirometer 10 times per hour while awake. Objective - Vital Signs Vital signs: Vital Signs Temp 97.7 F 05/31/24 02:00 Pulse 63 05/31/24 02:00 Resp 18 05/30/24 20:09 BP 138/58 05/31/24 02:00 Pulse Ox 96 05/31/24 02:00 FiO2 Intake & Output 05/30/24 05/31/24 05/31/24 18:59 06:59 18:59 Intake Total 2952 550 Output Total 1050 850 Balance 1902 -300 Weight 73.4 kg 73.4 kg Intake: IV 2952 550 Output: Urine 700 850 Estimated Blood Loss 350 Other: Voiding Method Indwelling Catheter - Exam Physical Examination General: The patient is awake and alert, in no acute distress Skin: Skin is warm and dry with no obvious rashes or lesions. Surgical incision to the lumbar spine, dressing is clean dry and intact with Hemovac present with 120 mL output overnight. Eye: Pupils are equal, round and reactive to light, extra-ocular movements are intact; there is normal conjunctiva bilaterally. Neck: The neck is supple, there is no tenderness and ROM intact. Cardiovascular: There is a regular rate and rhythm. No murmur, rub or gallop is appreciated. Respiratory: Respirations are non-labored, breath sounds are equal. Gastrointestinal: Soft, non-distended, non-tender abdomen. Back: There is no tenderness to palpation in the midline, paralumbar, par athoracic or buttocks region. There is no obvious deformity . Musculoskeletal: ROM limited secondary to pain and stiffness from surgical procedure. Right: Shoulder abduction 5/5, elbow flexors 5/5, wrist dorsiflexors 5/5. finger abductor 5/5, respiratory practitioner 5/5, hip flexor 4/5, knee flexor 4/5, ankle dorsiflexor 5/5, ankle plantarflexion 5/5 and extensor hallucis 5/5. Left: Shoulder abduction 5/5, elbow flexors 5/5, wrist dorsiflexors 5/5. finger abductor 5/5, respiratory practitioner 5/5, hip flexor 4/5, knee flexor 4/5, ankle dorsiflexor 5/5, ankle plantarflexion 5/5 and extensor hallucis 5/5. Neurological: CN 2-12 intact. There are no obvious motor or sensory deficits. Movement and coordination equal and intact. Sensory exam to light touch intact C5-T1 and intact from L2-S1. Reflexes 2/4 in bilateral upper and lower extremities. Negative Hoffmans, babinski, and clonus signs. Psychiatric: Cooperative, appropriate mood & affect, normal judgment. - Labs CBC & Chem 7: 05/31/24 06:22 Labs: Abnormal Lab Results - Last 24 Hours (Table) 05/31/24 Range/Units 06:22 WBC 11.3 H (3.8-10.6) k/uL MCV 102.0 H (80.0-100.0) fL Plt Count 128 L (150-450) k/uL Neutrophils # 9.5 H (1.3-7.7) k/uL Assessment and Plan Assessment: Postop day 1: Revision [id number] decompression and fusion Plan: -Appreciate sec reporting consultant and team management. -Activity: Ambulate QID, OOB all meals, up and about, limit lifting bending twisting to less than 5 lbs. Use walker or cane if needed for stability. -Daily PT/OT, increase ambulation strength and balance. -Brace when up and about, not needed in bed or chair -Pain control: Adequate at this time -Meds: reviewed -GI ppx: senna, Miralax -DC bullard this morning -DVT PPX: OK to restart Heparin tonight -Hygiene: Maintain dressing clean and dry. Meticulous cleaning after BMs away from the incision site -Drains: Maintain for now. Continue to monitor and record output q shift. -Encourage IS 10x/hr -Dispo: Anticipate discharge to subacute rehab within the next 24-48 hours *I reviewed and discussed this case with my attending Dr. Nova, whom has reviewed this chart and films and is in agreement with assessment and plan of care as outlined above. I have personally seen and examined the patient, performed the documentation and the assessment and plan as written. Number of minutes spent on the visit: 20m.
[2024-05-31] MEDS: CYCLOBENZAPRINE 5 MG TAB PO SCH (09:20)
[2024-05-31] MEDS: oxyCODONE-APAP 10-325MG 1 EACH TAB PO PRN (09:25)
[2024-05-31 10:26] LABS: BUN/Creat Ratio 13.43 Ratio (12.00-20.00); Blood Urea Nitrogen 9.4 mg/dL (9.0-27.0); Calcium 8.5 mg/dL (8.7-10.3); Carbon Dioxide 22.9 mmol/L (21.6-31.8); Chloride 105 mmol/L (96-109); Glucose 102 mg/dL (70-110); Potassium 4.2 mmol/L (3.5-5.5); Sodium 141 mmol/L (135-145)
[2024-05-31] MEDS: ALPRAZolam 0.5 MG TAB PO PRN (13:37)
[2024-05-31] MEDS: ATORVASTATIN 40 MG TAB PO SCH (20:20)
[2024-05-31] MEDS: DULoxetine HCL 60 MG CAPSULE.DR PO SCH (20:20)
[2024-05-31] MEDS: OXYBUTYNIN 10 MG TAB.ER.24 PO SCH (22:01)
[2024-05-31] MEDS: AMITRIPTYLINE HCL 10 MG TAB PO SCH (22:02)
[2024-05-31] MEDS: QUEtiapine 400 MG TAB PO SCH (22:05)
[2024-06-01] MEDS: oxyCODONE-APAP 10-325MG 1 EACH TAB PO SCH (08:06)
--- NOTE | 2024-06-01 09:48 | P.PN ---
Subjective Progress Note Date: 06/01/24 64-year-old female with a PMH of hypertension, hyperlipidemia, CAD, Fibromyalgia, Bipolar/Depression and hypothyroidism who presents to the [facility] for scheduled lumbosacral laminectomy, osteotomy, and interbody fusion. Underwent surgery with Dr. Nova on 05/30. [facility] consulted for medical kya gement of this patient. 06/01 Patient was seen and examined. Patient reports 9/10 pain in her neck. Urinating freely. No bowel movement yet but passing gas. CBC and BMP done 05/31 significant for WBC 11.3, MCV 102, Plt 128, AG 13.1, Ca 8.5. General: non toxic, no distress, appears at stated age Derm: warm, dry Head: atraumatic, normocephalic, symmetric, C-collar intact Eyes: EOMI, no lid lag, anicteric sclera Mouth: no lip lesion, mucus membranes moist Cardiovascular: S1S2 reg, no murmur Lungs: Clear to auscultation bilaterally, no accessory muscle use Ext: no gross muscle atrophy, no edema, no contractures Neuro: no focal neuro deficits Psych: Alert, oriented, appropriate affect Based on my assessment of this patient, this patient meets a moderate complexity level of care. Leukocytosis likely reactive with no signs of active infection Hypertension: Imdur 120 mg PO QD. Losartan 25 mg PO QD. Metoprolol 25 mg PO QD. Hyperlipidemia: Lipitor 40 mg PO QHS. CAD: Plaivx with OK with [facility]. Metoprolol as above. Bipolar/Depression: Seroquel 400 mg PO QHS. Hypothyroidism: Synthroid 125 mcg PO QD. CODE STATUS: FULL CODE DVT Prophylaxis: SCD GI Prophylaxis: Designated medical POA if patient is not able to make medical decisions for themselves: Discharge dispo is SNF. I have reviewed the following healthcare risk control consultant notes: Orthopedic Sx. I have reviewed the results of the following tests: CBC, BMP I have ordered the following tests: I have discussed the care of this patient with the following independent historian: I have independently interpreted the following test below: I have discussed the management of this patient with the following physician: Objective - Vital Signs Vital signs: Vital Signs Temp 98.3 F 06/01/24 01:44 Pulse 75 06/01/24 01:44 Resp 16 05/31/24 20:20 BP 105/68 06/01/24 01:44 Pulse Ox 94 L 06/01/24 01:44 FiO2 Intake & Output 05/31/24 05/31/24 06/01/24 06:59 18:59 06:59 Intake Total 550 Output Total 850 120 250 Balance -300 -120 -250 Weight 73.4 kg Intake: IV 550 Output: Drainage 120 250 Lower Back 120 250 Urine 850 Other: Voiding Method Indwelling Catheter Toilet # Voids 2 1 - Labs CBC & Chem 7: 05/31/24 06:22 05/31/24 06:22 Labs: Abnormal Lab Results - Last 24 Hours (Table) 05/31/24 05/31/24 Range/Units 06:22 06:22 WBC 11.3 H (3.8-10.6) k/uL MCV 102.0 H (80.0-100.0) fL Plt Count 128 L (150-450) k/uL Neutrophils # 9.5 H (1.3-7.7) k/uL Anion Gap 13.10 H (4.00-12.00) mmol/L Calcium 8.5 L (8.7-10.3) mg/dL
[2024-06-01] MEDS: HYDROmorphone 1 MG/ML 1 ML SYRINGE IVP STA (09:55)
--- NOTE | 2024-06-01 11:02 | P.PN ---
Subjective Progress Note Date: 06/01/24 Principal diagnosis: 1. 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 L3-L4, L4-L5 pseudoarthrosis 3. Lumbar stenosis with neurogenic claudication 4. Bilateral lower extremity radiculopathy with weakness 5. Mechanical low back pain Patient seen and examined this morning. Patient is currently resting in bed. Patient reports that her pain has been moderately managed, medications have been adjusted. Surgical incision to the lumbar spine, edges are well-approximated with sutures intact. Hemovac drain is present at the right of the incision with 250 mL output over the last 24 hours. New dressing has been applied. Patient reports that she has been ambulatory within room and is working with physical therapy. She states that she is tolerating activity well. Continue to encourage patient to be up in chair for all meals. No acute concerns at this time. Objective - Vital Signs Vital signs: Vital Signs Temp 98.4 F 06/01/24 08:00 Pulse 80 06/01/24 08:00 Resp 18 06/01/24 08:00 BP 110/65 06/01/24 08:00 Pulse Ox 93 L 06/01/24 08:00 FiO2 Intake & Output 05/31/24 06/01/24 06/01/24 18:59 06:59 18:59 Output Total 120 250 Balance -120 -250 Output: Drainage 120 250 Lower Back 120 250 Other: Voiding Method Toilet # Voids 2 1 - Exam Physical Examination General: The patient is awake and alert, in no acute distress Skin: Skin is warm and dry with no obvious rashes or lesions. Surgical incision to the lumbar spine, edges are well-approximated with sutures intact with Hemovac present with 250 mL output over the last 24 hours. New dressing has been applied. Eye: Pupils are equal, round and reactive to light, extra-ocular movements are intact; there is normal conjunctiva bilaterally. Neck: The neck is supple, there is no tenderness and ROM intact. Cardiovascular: There is a regular rate and rhythm. No murmur, rub or gallop is appreciated. Respiratory: Respirations are non-labored, breath sounds are equal. Gastrointestinal: Soft, non-distended, non-tender abdomen. Back: There is no tenderness to palpation in the midline, paralumbar, parathoracic or buttocks region. There is no obvious deformity . Musculoskeletal: ROM limited secondary to pain and stiffness from surgical procedure. Right: Shoulder abduction 5/5, elbow flexors 5/5, wrist dorsiflexors 5/5. finger abductor 5/5, tractor trailer mechanic 5/5, hip flexor 4/5, knee flexor 4/5, ankle dorsiflexor 5/5, ankle plantarflexion 5/5 and extensor hallucis 5/5. Left: Shoulder abduction 5/5, elbow flexors 5/5, wrist dorsiflexors 5/5. finger abductor 5/5, tractor trailer mechanic 5/5, hip flexor 4/5, knee flexor 4/5, ankle dorsiflexor 5/5, ankle plantarflexion 5/5 and extensor hallucis 5/5. Neurological: CN 2-12 intact. There are no obvious motor or sensory deficits. Movement and coordination equal and intact. Sensory exam to light touch intact C5-T1 and intact from L2-S1. Reflexes 2/4 in bilateral upper and lower extremities. Negative Hoffmans, babinski, and clonus signs. Psychiatric: Cooperative, appropriate mood & affect, normal judgment. - Labs CBC & Chem 7: 05/31/24 06:22 05/31/24 06:22 Labs: Abnormal Lab Results - Last 24 Hours (Table) 05/31/24 Range/Units 06:22 Anion Gap 13.10 H (4.00-12.00) mmol/L Calcium 8.5 L (8.7-10.3) mg/dL Assessment and Plan Assessment: Postop day 2: Revision [id number] decompression and fusion Plan: -Appreciate healthcare risk control consultant and team management. -Activity: Ambulate QID, OOB all meals, up and about, limit lifting bending twisting to less than 5 lbs. Use walker or cane if needed for stability. -Daily PT/OT, increase ambulation strength and balance. -Brace when up and about, not needed in bed or chair -Pain control: Adequate at this time -Meds: reviewed -GI ppx: senna, Miralax -DVT PPX: Heparin -Hygiene: Maintain dressing clean and dry. Meticulous cleaning after BMs away from the incision site -Drains: Maintain for now. Continue to monitor and record output q shift. -Encourage IS 10x/hr -Dispo: Anticipate discharge to subacute rehab within the next 24-48 hours *I reviewed and discussed this case with my attending Dr. Nova, whom has reviewed this chart and films and is in agreement with assessment and plan of care as outlined above. I have personally seen and examined the patient, performed the documentation and the assessment and plan as written. Number of minutes spent on the visit: 20m.
[2024-06-01] MEDS: HYDROmorphone 0.5 MG/0.5 ML SYRINGE IVP PRN (14:20)
[2024-06-02] MEDS ORDERED: oxyCODONE-APAP 10-325MG 1 EACH TAB ONE (00:30)
[2024-06-02] MEDS ORDERED: ACETAMINOPHEN TAB 325 MG TAB ONE (00:30)
--- NOTE | 2024-06-02 08:49 | P.PN ---
Subjective Progress Note Date: 06/02/24 Principal diagnosis: 1. 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 L3-L4, L4-L5 pseudoarthrosis 3. Lumbar stenosis with neurogenic claudication 4. Bilateral lower extremity radiculopathy with weakness 5. Mechanical low back pain Patient seen and examined this morning. Patient is currently resting in bed. Patient reports that her pain has been managed on current regimen. Surgical incision to the lumbar spine, dressing is clean dry and intact. Hemovac drain is present at the right of the incision with 100ml output overnight. Patient reports that she has been ambulatory within room and is working with physical therapy. She states that she is tolerating activity well. Continue to encourage patient to be up in chair for all meals. No acute concerns at this time. Patient progressing well towards discharge to subacute rehab when bed available. Objective - Vital Signs Vital signs: Vital Signs Temp 97.3 F L 06/02/24 08:00 Pulse 59 L 06/02/24 08:00 Resp 18 06/02/24 08:00 BP 94/59 06/02/24 08:00 Pulse Ox 90 L 06/02/24 08:00 FiO2 Intake & Output 06/01/24 06/02/24 06/02/24 18:59 06:59 18:59 Output Total 150 Balance -150 Output: Drainage 150 Lower Back 150 Other: # Voids 3 2 - Exam Physical Examination General: The patient is awake and alert, in no acute distress Skin: Skin is warm and dry with no obvious rashes or lesions. Surgical incision to the lumbar spine, dressing is clean dry and intact, Hemovac is present with 100 mL output overnight. Eye: Pupils are equal, round and reactive to light, extra-ocular movements are intact; there is normal conjunctiva bilaterally. Neck: The neck is supple, there is no tenderness and ROM intact. Cardiovascular: There is a regular rate and rhythm. No murmur, rub or gallop is appreciated. Respiratory: Respirations are non-labored, breath sounds are equal. Gastrointestinal: Soft, non-distended, non-tender abdomen. Back: There is no tenderness to palpation in the midline, paralumbar, parathoracic or buttocks region. There is no obvious deformity . Musculoskeletal: ROM limited secondary to pain and stiffness from surgical procedure. Right: Shoulder abduction 5/5, elbow flexors 5/5, wrist dorsiflexors 5/5. finger abductor 5/5, family resource management professor 5/5, hip flexor 4/5, knee flexor 4/5, ankle dorsiflexor 5/5, ankle plantarflexion 5/5 and extensor hallucis 5/5. Left: Shoulder abduction 5/5, elbow flexors 5/5, wrist dorsiflexors 5/5. finger abductor 5/5, family resource management professor 5/5, hip flexor 4/5, knee flexor 4/5, ankle dorsiflexor 5/5, ankle plantarflexion 5/5 and extensor hallucis 5/5. Neurological: CN 2-12 intact. There are no obvious motor or sensory deficits. Movement and coordination equal and intact. Sensory exam to light touch intact C5-T1 and intact from L2-S1. Reflexes 2/4 in bilateral upper and lower extremities. Negative Hoffmans, babinski, and clonus signs. Psychiatric: Cooperative, appropriate mood & affect, normal judgment. - Labs CBC & Chem 7: 05/31/24 06:22 05/31/24 06:22 Assessment and Plan Assessment: Postop day 3: Revision [id number] decompression and fusion Plan: -Appreciate business consultant and team management. -Activity: Ambulate QID, OOB all meals, up and about, limit lifting bending twisting to less than 5 lbs. Use walker or cane if needed for stability. -Daily PT/OT, increase ambulation strength and balance. -Brace when up and about, not needed in bed or chair -Pain control: Adequate at this time -Meds: reviewed -GI ppx: senna, Miralax -DVT PPX: Heparin -Hygiene: Maintain dressing clean and dry. Meticulous cleaning after BMs away from the incision site -Drains: Maintain for now. Continue to monitor and record output q shift. -Encourage IS 10x/hr -Dispo: Anticipate discharge to subacute rehab within the next 24hrs *I reviewed and discussed this case with my attending Dr. Nova, whom has reviewed this chart and films and is in agreement with assessment and plan of care as outlined above. I have personally seen and examined the patient, performed the documentation and the assessment and plan as written. Number of minutes spent on the visit: 20m.
[2024-06-02] MEDS: oxyCODONE ER 20 MG TAB.ER.12H PO SCH (11:51)
--- NOTE | 2024-06-02 15:02 | P.PN ---
Subjective Progress Note Date: 06/02/24 Principal diagnosis: low back pain patient complaining from worsening low back pain and was crying because IV Dilaudid was discontinued. She is chronically on [place] and OxyContin at home. She was seen by physical therapy and was not considered a candidate for rehabilitation placement. Objective - Vital Signs Vital signs: Vital Signs Temp 97.3 F L 06/02/24 08:00 Pulse 80 06/02/24 10:00 Resp 18 06/02/24 11:26 BP 117/69 06/02/24 10:00 Pulse Ox 98 06/02/24 10:00 FiO2 Intake & Output 06/01/24 06/02/24 06/02/24 18:59 06:59 18:59 Intake Total 200 Output Total 150 Balance -150 200 Intake: Oral 200 Output: Drainage 150 Lower Back 150 Other: Voiding Method Toilet # Voids 3 2 - Exam Constitutional: No acute distress, conversant, pleasant Eyes:Anicteric sclerae, moist conjunctiva, no lid-lag, PERRLA, ENMT: Oropharynx clear, no erythema, exudates Neck: Supple, FROM, no masses, or JVD, No carotid bruits, No thyromegaly Lungs: Clear to auscultation, Clear to percussion, Normal respiratory effort, no accessory muscle use Cardiovascular: Heart regular in rate and rhythm, No murmurs, gallops, or rubs, No peripheral edema Abdominal: Soft, Nontender, no guarding, rebound or rigidity, Normoactive bowel sounds, No hepatomegaly, No splenomegaly, No palpable mass Skin: Normal temperature, tone, texture, turgor, no induration, No subcutaneous nodules, No rash, lesions, No ulcers Extremities: No digital cyanosis, No clubbing, Pedal pulses intact and symmetrical, Radial pulses intact and symmetrical, No calf tenderness Psychiatric: Alert and oriented to person, place and time, appropriate affect, intact judgement Neuro: Muscles Strength 5/5 in all 4 extremities, Sensation to light touch grossly present throughout, Cranial nerves II-XII grossly intact, no focal sensory deficits - Labs CBC & Chem 7: 05/31/24 06:22 05/31/24 06:22 Assessment and Plan Plan: chronic low back status post surgery by orthopedic I restarted her OxyContin, Continue Percocet as needed painLeukocytosis likely reactive with no signs of active infection Hypertension: Imdur 120 mg PO QD. Losartan 25 mg PO QD. Metoprolol 25 mg PO QD. Hyperlipidemia: Lipitor 40 mg PO QHS. CAD: Plaivx with OK with [facility]. Metoprolol as above. Bipolar/Depression: Seroquel 400 mg PO QHS. Hypothyroidism: Synthroid 125 mcg PO QD. DVT prophylaxis: start once safe by orthopedics. patient does not qualify to go to rehabilitation for PT evaluation. Likely to go home. she is cleared by medicine for discharge.
[2024-06-02] MEDS: oxyCODONE-APAP 10-325MG 1 EACH TAB PO PRN (16:28)
--- NOTE | 2024-06-03 10:50 | P.PN ---
Subjective Progress Note Date: 06/03/24 Principal diagnosis: 1. 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 L3-L4, L4-L5 pseudoarthrosis 3. Lumbar stenosis with neurogenic claudication 4. Bilateral lower extremity radiculopathy with weakness 5. Mechanical low back pain Patient was seen at bedside this morning sitting up at the edge of the bed with dressing and drain in place over lumbar spine. Patient says she has been working with physical therapy daily and has been walking about 200 feet. Patient says she has progressed. Patient says she is still in a lot of pain however. She has been taking OxyContin as well as Percocet and Lyrica for pain. Patient is hoping to stay 1 more night for additional pain control. Patient says she has urinated since surgery without issue. Patient denies any issues with bladder/bowel control. Patient denies any other issues at this time. Objective - Vital Signs Vital signs: Vital Signs Temp 98.1 F 06/03/24 07:45 Pulse 58 L 06/03/24 07:45 Resp 18 06/03/24 07:45 BP 116/70 06/03/24 07:45 Pulse Ox 97 06/03/24 08:50 FiO2 Intake & Output 06/02/24 06/03/24 06/03/24 18:59 06:59 18:59 Intake Total 400 Output Total 1150 150 Balance -750 -150 Intake: Oral 400 Output: Drainage 150 150 Lower Back 150 150 Urine 1000 Other: Voiding Method Toilet # Voids 3 - Exam Inspection: Dressing present over lumbar spine. Drain in place. Nylon sutures appear to be aligned and well in place. Negative for any active drainage. Dressing removed at bedside. New dressing placed. Drain removed at bedside and drain sponge placed over drain incision. Sensation: Equal, symmetric, bilateral intact throughout the upper and lower extremities. Palpation: Moderate tenderness to palpation over the lumbar spine near incision. Nontender to palpation throughout rest of exam. Range of motion: There is some limited range of motion in the bilateral hips in flexion to extension secondary to referred stiffness and pain to the low back. Full range of motion throughout rest of bilateral lower extremities on exam. Motor: 4/5 in all major motor groups in bilateral lower extremities. Special test: Negative Charissa bilaterally. Negative clonus bilaterally. Negative Homans bilaterally. Neurovascular: Radial pulse intact, 2+ bilaterally. Cap refill under 3 seconds in digits of upper extremities. - Labs CBC & Chem 7: 05/31/24 06:22 05/31/24 06:22 Assessment and Plan Assessment: 1. 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 Dressing removed and changed at bedside. Drain removed at bedside. Continue pain medication as prescribed. We will keep patient 1 more night for additional pain control. Plan for discharge home tomorrow with home care 2. Appreciate medical management 3. Pain management -OxyContin; Percocet; Lyrica 4. DVT prophylaxis -mechanical 5. GI prophylaxis - senna 6. PT/OT -weightbearing as tolerated with walker and brace 7. Encourage incentive spirometer use 8. Discharge home tomorrow with home care Time with Patient: Less than 30
--- NOTE | 2024-06-03 11:15 | P.PN ---
Subjective Progress Note Date: 06/03/24 Principal diagnosis: low back pain Patient still complaining of back pain, demanding an increase in the pain medications dosages. she does follow with pain specialist in the office. No overnight events. Objective - Vital Signs Vital signs: Vital Signs Temp 98.1 F 06/03/24 07:45 Pulse 58 L 06/03/24 07:45 Resp 18 06/03/24 10:12 BP 116/70 06/03/24 07:45 Pulse Ox 97 06/03/24 08:50 FiO2 Intake & Output 06/02/24 06/03/24 06/03/24 18:59 06:59 18:59 Intake Total 400 Output Total 1150 150 Balance -750 -150 Intake: Oral 400 Output: Drainage 150 150 Lower Back 150 150 Urine 1000 Other: Voiding Method Toilet Toilet # Voids 3 2 - Exam Constitutional: No acute distress, conversant, pleasant Eyes:Anicteric sclerae, moist conjunctiva, no lid-lag, PERRLA, ENMT: Oropharynx clear, no erythema, exudates Neck: Supple, FROM, no masses, or JVD, No carotid bruits, No thyromegaly Lungs: Clear to auscultation, Clear to percussion, Normal respiratory effort, no accessory muscle use Cardiovascular: Heart regular in rate and rhythm, No murmurs, gallops, or rubs, No peripheral edema Abdominal: Soft, Nontender, no guarding, rebound or rigidity, Normoactive bowel sounds, No hepatomegaly, No splenomegaly, No palpable mass Skin: Normal temperature, tone, texture, turgor, no induration, No subcutaneous nodules, No rash, lesions, No ulcers Extremities: No digital cyanosis, No clubbing, Pedal pulses intact and symmetrical, Radial pulses intact and symmetrical, No calf tenderness Psychiatric: Alert and oriented to person, place and time, appropriate affect, intact judgement Neuro: Muscles Strength 5/5 in all 4 extremities, Sensation to light touch grossly present throughout, Cranial nerves II-XII grossly intact, no focal sensory deficits - Labs CBC & Chem 7: 05/31/24 06:22 05/31/24 06:22 Assessment and Plan Plan: Chronic low back status post surgery by orthopedic Continue OxyContin, Continue Percocet as needed Case discussed with orthopedic PA painLeukocytosis likely reactive with no signs of active infection Hypertension: Imdur 120 mg PO QD. Losartan 25 mg PO QD. Metoprolol 25 mg PO QD. Hyperlipidemia: Lipitor 40 mg PO QHS. CAD: Plaivx with OK with [facility]. Metoprolol as above. Bipolar/Depression: Seroquel 400 mg PO QHS. Hypothyroidism: Synthroid 125 mcg PO QD. DVT prophylaxis: start once safe by orthopedics. patient does not qualify to go to rehabilitation for PT evaluation. Likely to go home. Discharge held today because of lack of subjective pain control. 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 Anticipate discharge in a.m. she is cleared by medicine for discharge.
[2024-06-03 12:05] VITALS: BMI 30.5
[2024-06-04] MEDS: CLOPIDOGREL 75 MG TAB PO SCH (10:01)
[2024-06-04 10:13] VITALS: BP 101/59; PULSE 56; RESP 18; TEMP 97.9
--- NOTE | 2024-06-04 12:11 | P.PN ---
Subjective Progress Note Date: 06/04/24 Principal diagnosis: Status post revision [id number] decompression and fusion Patient was evaluated today at bedside, she was visualized ambulating the halls with a walker. She continues to have discomfort through the low back but continues to notice improvement. She has had no issues with the incision. She is eager to return home with home health care. She denies headaches, lightheadedness, chest pain or shortness of breath currently. Objective - Vital Signs Vital signs: Vital Signs Temp 97.9 F 06/04/24 07:54 Pulse 56 L 06/04/24 07:54 Resp 18 06/04/24 07:54 BP 101/59 06/04/24 07:54 Pulse Ox 95 06/04/24 08:00 FiO2 Intake & Output 06/03/24 06/04/24 06/04/24 18:59 06:59 18:59 Intake Total 200 Output Total 1150 237 Balance -950 -237 Weight 73.4 kg Intake: Oral 200 Output: Drainage 150 Lower Back 150 Urine 1000 237 Other: Voiding Method Toilet Toilet # Voids 3 3 - Exam Gen: AOx3, NAD VSS stable at this time Integument: Incision well-healing at this time, dilia are all in good position and condition Palpation: Mild tenderness with palpation of the paraspinal region of the lumbar spine ROM: Full range of motion in all major muscle groups of the bilateral upper and lower extremities, no focal deficits appreciated Sensory Exam: Senory exam to light touch is intact C5-T1 Senosry exam to light touch is intact L2-S1 Motor: 4+/5 strength appreciated bilateral upper extremities with shoulder elevation, shoulder abduction, elbow extension, elbow flexion, wrist extension, wrist flexion, intrinsics, outdoor pursuits instructor 4/5 length appreciated the bilateral lower extremities with hip flexion, knee extension, knee flexion, plantarflexion, dorsiflexion, EHL, FHL Reflexes: 2/4 in all UE and LE Negative Charissa's bilaterally Negative clonus bilaterally - Labs CBC & Chem 7: 05/31/24 06:22 05/31/24 06:22 Assessment and Plan Assessment: Postoperative day #5 status post revision [id number] decompression and fusion Plan: Pain control, patient will resume her normally prescribed pain medications. I also did prescribe Flexeril 5 mg to take as needed twice a day. I prescribed multiple stool softeners also for discharge Wound care instructions were discussed, this to include bandaging instructions and showering instructions Activity level restrictions were discussed, this to include no lifting, bending or twisting. We discussed the use of the lumbar back brace and when to use it versus not Health care after discharge Medical recommendations appreciated Plan: Patient stable for discharge home and follow-up in 2 weeks in the office for recheck Time with Patient: Less than 30
--- NOTE | 2024-06-04 12:15 | P.DS ---
Providers Date of admission: 05/30/24 10:15 Attending physician: Nima Nova DO Consults: 05/30/24 16:10 Consult Physician Routine Consulting Provider: Aftab Hurtado Consult Reason/Comments: medical management s/p L2-pelvis decompr fusion Do you want consulting provider notified?: Yes Primary care physician: Nathanael [facility] Course: Date of admission: 05/30/2024 Date of discharge: 06/04/2024 Admission diagnosis: Status post [id number] decompression and fusion Discharge diagnosis: Same Attending physician: Dr. Nova Surgical procedures: Revision [id number] decompression and fusion Brief history: Patient is a 64-year-old female with a history of chronic low back pain and multiple lower back surgeries. 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 Patient tolerated the procedure well and was subsequently transported to orthopedic floor. Patient's orthopeidc and medical care was provided daily. Patient had daily laboratory tests performed for evaluation of overall blood counts. Patient had daily physical therapy to include strengthening range of motion as well as education with walker ambulation. Patient was treated with Plavid for their postoperative DVT prophylaxis during their inpatient stay. Patient was noted to have a relatively uneventful postoperative course. Patient reported satisfactory pain control with oral pain medications by postoperative day 4. Patient showed satisfactory progress with physical therapy. Patient moved steadily through the program and had no difficulty meeting the goals by postoperative day 5. Given patient's otherwise satisfactory course and having met physical therapy goals, plan is to discharge patient home on postoperative day 5. Discharge condition/disposition: Patient will be discharged home in stable condition. Discharge medications: Instructions are given on resumption of patient's normal daily medications per primary care recommendation, in addition patient will be prescribed Flexeril 5 mg, senna S, MiraLAX 17 g, Duricef 500 mg. Spine Discharge and Recovery Instructions Medications: See medication list All medication refills should be obtained through your primary care doctor or your clinic spine surgeon. Please discuss prescription refills at your follow up appointment. Do not call the hospital for medication refills. Dressing: Leave your dressing in place for a total of 5 days post operatively. Then you may remove your dressing and leave open to air. Keep the area clean and if not able to keep area clean, then cover with sterile gauze and tape. Showering: You may shower 3 days after your procedure allowing soap and water to run over incision. Do not scrub. Do not soak. Blot dry. Follow up: Please confirm a follow up appointment with your surgeon 3 weeks post operatively. Please make an appointment to follow up with your PCP in 1-2 weeks after surgery for evaluation '3 phase, 3-week plan' POST OP WEEKS 1-3 1. Lifting/carrying/pushing/pulling limited to less than 5 pounds. 2. Do not sit for longer than 15 minutes at one time. Get up and walk around. Prolonged sitting is NOT advised. If you lay down, see if you can tolerate laying down on you front (belly side) 3. Walk for periods of 15 minutes = 1 mile but no longer; do it multiple times times each day. 4. Ice your low back after activity. POST OP WEEKS 3-6 1. Lifting limited to less than 20 pounds. 2. Do not sit for longer than 30 minutes at a time. Frequently change positions. Use a sit-to stand workstation or take frequent breaks from sitting if you have returned to work. 3. Walk for 30 minutes each day. If possible, do these three or more times a day POST OP WEEKS 6+ At your 6-week appointment we will give you a physical therapy referral to focus on a core stabilization and strengthening program. You should also work on leg & buttock strengthening, hamstring & quadriceps stretching, and continue a low imp act aerobic activity program such as swimming, walking, or riding a stationary bicycle. During the initial 6 weeks after your surgery, you are at the highest risk of re-injuring your spine. You should generally avoid BLT's (bending, lifting and twisting combination motions) and follow the above guidelines to reduce the chance of reinjury. You can anticipate post op appointments in our office at approximately 3 weeks and 6 weeks after your surgery. INCISION CARE: If your incision is not draining you do NOT need to cover it with a dressing. Keep your incision clean, dry and intact. In most cases, we apply skin glue, dilia or sutures to the incision at the time of surgery. This will be like a crust or have the appearance of a scab and will fall off in time on its own. The stitches or dilia need to be removed at 3 weeks post op appointment. You may begin to shower 3 days after surgery (this allows the glue to nieves well). However, please avoid scrubbing the incision site or peeling off any of the skin glue. This will ensure optimal healing of your incision. Also, during this time avoid soaking the incision area in water - this includes swimming pools, hot tubs or baths. No ointments, lotions or oils on the incision until your surgeon allows. Leave dilia, sutures or glue in place. Neurological dysfunction that comes on suddenly can also be a sign of a stroke. Below some common symptoms of a stroke are listed: B - balance difficulty such as sudden onset walking or leaning to one side - NEW E - eye problem such as sudden double vision or trouble seeing on one side - NEW F - Facial weakness or numbness on one side - NEW A - Arm or leg weakness or numbness on one side - NEW S - Slurred speech or difficulty with word finding - NEW T - Time is BRAIN! Call 911 as soon as you recognize these symptoms Diet: Consume a regular diet rich in vegetables and lean protein such as chicken or fish. You should consume in a ratio of approximately 20% fats|40% carbohydrates|40%protein. Vegetables, sweet potatoes, brown rice or quinoa are examples of good carbohydrates. Chips, white bread, cookies and sweets/sugar are examples of bad carbohydrates. Limit your bad carbs, go wild with good carbs. "Life's Simple 7" Guidelines as per [place] [employer] These will help you reclaim your life after surgery and retort furnace helper in your recovery, keeping in mind your restrictions. (1) Get Active. Physical activity can help people lose weight, control high blood pressure and cholesterol, feel emotionally better, and sleep better. (2) Control Cholesterol. Avoid a diet high in saturated fat, trans fat, & cholesterol. Limit whole milk & cream, ice cream, butter, egg yolks, processed meats (like sausage and hot dogs), and fatty meats. Choose healthy foods that are low in saturated fat, trans fat and cholesterol which include: Fruits and vegetables, fiber rich grain products (like whole grain pasta and brown rice), lean meat such as chicken, fish, nuts, seeds, and legumes. (3) Eat Better. Eat small portions. Shop at the grocery with a list and do not stray from it. Tips for a healthy diet include: Limit sodium intake to less than 1500mg daily, avoid prepackaged, processed, and fast foods, choose a diet rich in fruits, vegetables, and whole grain, high fiber foods, and limit saturated & cholesterol in your diet. (4) Manage Blood Pressure. If you have high blood pressure, you should have a cuff at home so that you can check your blood pressure regularly. Be sure you have a good cuff. An arm one is generally better than a wrist one. Bring the cuff to a doctor's appointment to validate that the measurements that your cuff are taking are accurate. Take your blood pressure twice daily when you are sitting down and relaxing. Record the numbers in a log and bring this log with you to your doctors' appointments. (5) Lose Weight if your BMI is above 25. A healthy BMI is between 19-25. To calculate Your BMI, you may use a Standard BMI Calculator on the NIH BMI website: <www.nhlbi.nih.gov/guidelines/obesity/BMI/bmicalc.htm>. Weigh oneself daily. If you are overweight, set a goal to lose weight. A pound a week loss if needed is a good target. (6) Reduce Blood Sugar. Limit foods and liquids with "added sugars." (Added sugars include sucrose, fructose, glucose, maltose, dextrose, high fructose corn syrup, corn syrup, concentrated fruit juice and honey). (7) Stop Smoking. If you smoke, quitting smoking is one of the best things that you can do for your health. Smoking increases your risk of heart attack, stroke, and peripheral vascular disease, which is a build-up of plaque in your arteries. Please discard all the cigarettes and lighters in your house. Have a plan for what you will do when you have the urge to smoke. Direct and second- hand smoke shortens your life as well as the lives of your family, friends and others around you. For your health and the health of those around you, please consider quitting! Proper Bending Body Mechanics: Maintain a wide stance with one foot slightly in front of the other. Keep your back straight. Bend utilizing the strength in your hips and knees. Do not bend at the waist. Maintain the lifted object at your waist-level close to your body. Avoid lifting weight that causes immediately pain or pain anywhere in the body afterwards. Smoking/Nicotine If there was ever one thing that you could do to increase your overall health, decrease your risk of cardiovascular problems by about 39% the second you make the choice, it is to STOP SMOKING. Your body's most instant gratification is the second you stop smoking. We have all heard the studies, read the articles but it is true, smoking is extremely bad for your overall health, and moreover it is detrimental to your bone health. Nicotine, IN ANY FORM, kills bone cells, prevents your body from healing fractures, and significantly prolongs healing after surgery. In spine surgery specifically, it increases your risk of not healing your bones to create a fusion and increases your risk of having a revision surgery due to this up to 60%. I know it is hard. I know it feels impossible. But there are ways. Take control of your life. We are here to help you through it. And when you are ready, ask us and we can direct you to help if you desire. Use the START Plan to Quit Smoking (please visit the Helpguide.org website listed below for more information): S = Set a quit date. Choose a date within the next 2 weeks, so you have enough time to prepare without losing your motivation to quit. If you mainly smoke at work, quit on the weekend, so you have a few days to adjust to the change. T = Tell family, friends, and co-workers that you plan to quit. Let your friends and family in on your plan to quit smoking and tell them you need their support and encouragement to stop. Look for a quit aba who wants to stop smoking as well. You can help each other get through the rough times. A = Anticipate and plan for the challenges you'll face while quitting. Most people who begin smoking again do so within the first 3 months. You can help yourself make it through by preparing ahead for common challenges, such as nicotine withdrawal and cigarette cravings. R = Remove cigarettes and other tobacco products from your home, car, and work. Throw away all your cigarettes (no emergency pack!), lighters, ashtrays, and matches. Wash your clothes and freshen up anything that smells like smoke. Shampoo your car, clean your drapes and carpet, and steam your furniture. T = Talk to your doctor about getting help to quit. Your doctor can prescribe medication to help with withdrawal and suggest other alternatives. If you can't see a doctor, you can get many products over the counter at your local pharmacy or grocery store, including the nicotine patch, nicotine lozenges, and nicotine gum. Resources for Quitting Smoking: <https://www.[place].gov/documents/[facility]/Quit_Tobacc o_Resources_for_patients_313480_7.pdf> Supplementation: Take recommended dosages of Vitamin D and Calcium to help fortify your bones and help them to heal. See your health maintenance packet for dosages and recommended levels. DVT/VTE prophylaxis: You will be given compression stockings from the hospital. Wear these daily for the first two weeks after surgery. You may take them off at night. You may be prescribed a medication to help thin your blood. Take this as directed. If you are not prescribed this medication, early and frequent ambulation has been shown to be the best prophylaxis to deep vein thrombosis and sequelae related to this event. Procedures: Revision [id number] decompression and fusion Patient Condition at Discharge: Good Plan - Discharge Summary Discharge Rx Participant: No New Discharge Prescriptions: New Cyclobenzaprine [Flexeril] 5 mg PO BID PRN #28 tablet PRN Reason: Muscle Spasm cefaDROXiL [Duricef] 500 mg PO Q12HR 5 Days #10 cap Sennosides/Docusate Sodium [Senna-S 8.6-50 mg Tablet] 2 each PO DAILY PRN #30 tablet PRN Reason: Constipation polyethylene glycoL 3350 [Miralax] 17 gm PO DAILY PRN #21 packet PRN Reason: Constipation No Action Oxybutynin Chloride [oxyBUTYnin chloride ER] 10 mg PO HS Pregabalin [Lyrica] 150 mg PO TID #30 cap oxyCODONE ER [OxyCONTIN] 15 mg PO Q12HR Cholecalciferol (Vitamin D3) [Vitamin D3 (50 Mcg = 2000 Iu)] 50 mcg PO DAILY Isosorbide Mononitrate [Imdur] 120 mg PO DAILY Levothyroxine Sodium [Synthroid] 125 mcg PO DAILY Multivitamins, Thera [Multivitamin (formulary)] 1 tab PO DAILY QUEtiapine [SEROquel] 400 mg PO HS Atorvastatin [Lipitor] 40 mg PO HS #30 tab Metoprolol Succinate (ER) [Toprol XL] 25 mg PO DAILY DULoxetine HCL [Cymbalta] 120 mg PO HS oxyCODONE-APAP 10-325MG [Percocet 10-325 mg] 1 tab PO BID PRN PRN Reason: Pain Clopidogrel [Plavix] 75 mg PO DAILY Amitriptyline HCl [Elavil] 30 mg PO HS Vitamin C/Biotin [Hair, Skin and Nails Chew] 1 tab PO DAILY Losartan [Cozaar] 25 mg PO DAILY #30 tab Discharge Medication List Metoprolol Succinate (ER) [Toprol XL] 25 mg PO DAILY 07/10/21 [History] DULoxetine HCL [Cymbalta] 120 mg PO HS 10/30/22 [History] Oxybutynin Chloride [oxyBUTYnin chloride ER] 10 mg PO HS 10/30/22 [History] Pregabalin [Lyrica] 150 mg PO TID #30 cap 12/23/22 [Rx] Clopidogrel [Plavix] 75 mg PO DAILY 10/15/23 [History] oxyCODONE ER [OxyCONTIN] 15 mg PO Q12HR 10/15/23 [History] oxyCODONE-APAP 10-325MG [Percocet 10-325 mg] 1 tab PO BID PRN 10/15/23 [History] Amitriptyline HCl [Elavil] 30 mg PO HS 12/10/23 [History] Cholecalciferol (Vitamin D3) [Vitamin D3 (50 Mcg = 2000 Iu)] 50 mcg PO DAILY 12/10/23 [History] Isosorbide Mononitrate [Imdur] 120 mg PO DAILY 12/10/23 [History] Levothyroxine Sodium [Synthroid] 125 mcg PO DAILY 12/10/23 [History] Multivitamins, Thera [Multivitamin (formulary)] 1 tab PO DAILY 12/10/23 [History] QUEtiapine [SEROquel] 400 mg PO HS 12/10/23 [History] Vitamin C/Biotin [Hair, Skin and Nails Chew] 1 tab PO DAILY 12/10/23 [History] Atorvastatin [Lipitor] 40 mg PO HS #30 tab 12/12/23 [Rx] Losartan [Cozaar] 25 mg PO DAILY #30 tab 12/12/23 [Rx] Cyclobenzaprine [Flexeril] 5 mg PO BID PRN #28 tablet 06/04/24 [Rx] Sennosides/Docusate Sodium [Senna-S 8.6-50 mg Tablet] 2 each PO DAILY PRN #30 tablet 06/04/24 [Rx] cefaDROXiL [Duricef] 500 mg PO Q12HR 5 Days #10 cap 06/04/24 [Rx] polyethylene glycoL 3350 [Miralax] 17 gm PO DAILY PRN #21 packet 06/04/24 [Rx] Follow up Appointment(s)/Referral(s): [facility] [[facility]] - Nima Nova DO [Doctor of Osteopathic Medicine] - 2 Weeks (Please call office to schedule appointment unless previously scheduled) Activity/Diet/Wound Care/Special Instructions: Spine Discharge and Recovery Instructions Medications: See medication list All medication refills should be obtained through your primary care doctor or your clinic spine surgeon. Please discuss prescription refills at your follow up appointment. Do not call the hospital for medication refills. Dressing: Leave your dressing in place for a total of 5 days post operatively. Then you may remove your dressing and leave open to air. Keep the area clean and if not able to keep area clean, then cover with sterile gauze and tape. Showering: You may shower 3 days after your procedure allowing soap and water to run over incision. Do not scrub. Do not soak. Blot dry. Follow up: Please confirm a follow up appointment with your surgeon 3 weeks post operatively. Please make an appointment to follow up with your PCP in 1-2 weeks after surgery for evaluation '3 phase, 3-week plan' POST OP WEEKS 1-3 1. Lifting/carrying/pushing/pulling limited to less than 5 pounds. 2. Do not sit for longer than 15 minutes at one time. Get up and walk around. Prolonged sitting is NOT advised. If you lay down, see if you can tolerate laying down on you front (belly side) 3. Walk for periods of 15 minutes = 1 mile but no longer; do it multiple times times each day. 4. Ice your low back after activity. POST OP WEEKS 3-6 1. Lifting limited to less than 20 pounds. 2. Do not sit for longer than 30 minutes at a time. Frequently change positions. Use a sit-to stand workstation or take frequent breaks from sitting if you have returned to work. 3. Walk for 30 minutes each day. If possible, do these three or more times a day POST OP WEEKS 6+ At your 6-week appointment we will give you a physical therapy referral to focus on a core stabilization and strengthening program. You should also work on leg & buttock strengthening, hamstring & quadriceps stretching, and continue a low impact aerobic activity program such as swimming, walking, or riding a stationary bicycle. During the initial 6 weeks after your surgery, you are at the highest risk of re-injuring your spine. You should generally avoid BLT's (bending, lifting and twisting combination motions) and follow the above guidelines to reduce the chance of reinjury. You can anticipate post op appointments in our office at approximately 3 weeks and 6 weeks after your surgery. INCISION CARE: If your incision is not draining you do NOT need to cover it with a dressing. Keep your incision clean, dry and intact. In most cases, we apply skin glue, dilia or sutures to the incision at the time of surgery. This will be like a crust or have the appearance of a scab and will fall off in time on its own. The stitches or dilia need to be removed at 3 weeks post op appointment. You may begin to shower 3 days after surgery (this allows the glue to nieves well). However, please avoid scrubbing the incision site or peeling off any of the skin glue. This will ensure optimal healing of your incision. Also, during this time avoid soaking the incision area in water - this includes swimming pools, hot tubs or baths. No ointments, lotions or oils on the incision until your surgeon allows. Leave dilia, sutures or glue in place. Neurological dysfunction that comes on suddenly can also be a sign of a stroke. Below some common symptoms of a stroke are listed: B - balance difficulty such as sudden onset walking or leaning to one side - NEW E - eye problem such as sudden double vision or trouble seeing on one side - NEW F - Facial weakness or numbness on one side - NEW A - Arm or leg weakness or numbness on one side - NEW S - Slurred speech or difficulty with word finding - NEW T - Time is BRAIN! Call 911 as soon as you recognize these symptoms Diet: Consume a regular diet rich in vegetables and lean protein such as chicken or fish. You should consume in a ratio of approximately 20% fats|40% carbohydrates|40%protein. Vegetables, sweet potatoes, brown rice or quinoa are examples of good carbohydrates. Chips, white bread, cookies and sweets/sugar are examples of bad carbohydrates. Limit your bad carbs, go wild with good carbs. "Life's Simple 7" Guidelines as per [place] [employer] These will help you reclaim your life after surgery and retort furnace helper in your recovery, keeping in mind your restrictions. (1) Get Active. Physical activity can help people lose weight, control high blood pressure and cholesterol, feel emotionally better, and sleep better. (2) Control Cholesterol. Avoid a diet high in saturated fat, trans fat, & cholesterol. Limit whole milk & cream, ice cream, butter, egg yolks, processed meats (like sausage and hot dogs), and fatty meats. Choose healthy foods that are low in saturated fat, trans fat and cholesterol which include: Fruits and vegetables, fiber rich grain products (like whole grain pasta and brown rice), lean meat such as chicken, fish, nuts, seeds, and legumes. (3) Eat Better. Eat small portions. Shop at the grocery with a list and do not stray from it. Tips for a healthy diet include: Limit sodium intake to less than 1500mg daily, avoid prepackaged, processed, and fast foods, choose a diet rich in fruits, vegetables, and whole grain, high fiber foods, and limit saturated & cholesterol in your diet. (4) Manage Blood Pressure. If you have high blood pressure, you should have a cuff at home so that you can check your blood pressure regularly. Be sure you have a good cuff. An arm one is generally better than a wrist one. Bring the cuff to a doctor's appointment to validate that the measurements that your cuff are taking are accurate. Take your blood pressure twice daily when you are sitting down and relaxing. Record the numbers in a log and bring this log with you to your doctors' appointments. (5) Lose Weight if your BMI is above 25. A healthy BMI is between 19-25. To calculate Your BMI, you may use a Standard BMI Calculator on the NIH BMI website: <www.nhlbi.nih.gov/guidelines/obesity/BMI/bmicalc.htm>. Weigh oneself daily. If you are overweight, set a goal to lose weight. A pound a week loss if needed is a good target. (6) Reduce Blood Sugar. Limit foods and liquids with "added sugars." (Added sugars include sucrose, fructose, glucose, maltose, dextrose, high fructose corn syrup, corn syrup, concentrated fruit juice and honey). (7) Stop Smoking. If you smoke, quitting smoking is one of the best things that you can do for your health. Smoking increases your risk of heart attack, stroke, and peripheral vascular disease, which is a build-up of plaque in your arteries. Please discard all the cigarettes and lighters in your house. Have a plan for what you will do when you have the urge to smoke. Direct and second- hand smoke shortens your life as well as the lives of your family, friends and others around you. For your health and the health of those around you, please consider quitting! Proper Bending Body Mechanics: Maintain a wide stance with one foot slightly in front of the other. Keep your back straight. Bend utilizing the strength in your hips and knees. Do not bend at the waist. Maintain the lifted object at your waist-level close to your body. Avoid lifting weight that causes immediately pain or pain anywhere in the body afterwards. Smoking/Nicotine If there was ever one thing that you could do to increase your overall health, decrease your risk of cardiovascular problems by about 39% the second you make the choice, it is to STOP SMOKING. Your body's most instant gratification is the second you stop smoking. We have all heard the studies, read the articles but it is true, smoking is extremely bad for your overall health, and moreover it is detrimental to your bone health. Nicotine, IN ANY FORM, kills bone cells, prevents your body from healing fractures, and significantly prolongs healing after surgery. In spine surgery specifically, it increases your risk of not healing your bones to create a fusion and increases your risk of having a revision surgery due to this up to 60%. I know it is hard. I know it feels impossible. But there are ways. Take control of your life. We are here to help you through it. And when you are ready, ask us and we can direct you to help if you desire. Use the START Plan to Quit Smoking (please visit the Helpguide.org website listed below for more information): S = Set a quit date. Choose a date within the next 2 weeks, so you have enough time to prepare without losing your motivation to quit. If you mainly smoke at work, quit on the weekend, so you have a few days to adjust to the change. T = Tell family, friends, and co-workers that you plan to quit. Let your friends and family in on your plan to quit smoking and tell them you need their support and encouragement to stop. Look for a quit aba who wants to stop smoking as well. You can help each other get through the rough times. A = Anticipate and plan for the challenges you'll face while quitting. Most people who begin smoking again do so within the first 3 months. You can help yourself make it through by preparing ahead for common challenges, such as nicotine withdrawal and cigarette cravings. R = Remove cigarettes and other tobacco products from your home, car, and work. Throw away all your cigarettes (no emergency pack!), lighters, ashtrays, and matches. Wash your clothes and freshen up anything that smells like smoke. Shampoo your car, clean your drapes and carpet, and steam your furniture. T = Talk to your doctor about getting help to quit. Your doctor can prescribe medication to help with withdrawal and suggest other alternatives. If you can't see a doctor, you can get many products over the counter at your local pharmacy or grocery store, including the nicotine patch, nicotine lozenges, and nicotine gum. Resources for Quitting Smoking: <https://www.[place].gov/documents/[facility]/Quit_Tobacco_Resources_for_patient s_313480_7.pdf> Supplementation: Take recommended dosages of Vitamin D and Calcium to help fortify your bones and help them to heal. See your health maintenance packet for dosages and recom mended levels. DVT/VTE prophylaxis: You will be given compression stockings from the hospital. Wear these daily for the first two weeks after surgery. You may take them off at night. You may be prescribed a medication to help thin your blood. Take this as directed. If you are not prescribed this medication, early and frequent ambulation has been shown to be the best prophylaxis to deep vein thrombosis and sequelae related to this event. Discharge Disposition: HOME WITH HOME HEALTH SERVICES
== END 2024-06-04 15:09 | disposition home health service (06) | DRG 454 ==
LOC: 2ORMAIN 10:15 → 4SSUR 19:29
PROVIDERS: ADMIT Orthopaedic Surgery; ATTEND Orthopaedic Surgery
PROC: 0SG1071 Fusion of 2 or more Lumbar Vertebral Joints with Autologous Tissue Substitute, Posterior Approach, Posterior Column, Open Approach (ICD-10-PCS; 2024-05-30)
PROC: 0QH304Z Insertion of Internal Fixation Device into Left Pelvic Bone, Open Approach (ICD-10-PCS; 2024-05-30)
PROC: 0QH204Z Insertion of Internal Fixation Device into Right Pelvic Bone, Open Approach (ICD-10-PCS; 2024-05-30)
PROC: 0SP004Z Removal of Internal Fixation Device from Lumbar Vertebral Joint, Open Approach (ICD-10-PCS; 2024-05-30)
PROC: 8E0WXBZ Computer Assisted Procedure of Trunk Region (ICD-10-PCS; 2024-05-30)
PROC: 0SG10AJ Fusion of 2 or more Lumbar Vertebral Joints with Interbody Fusion Device, Posterior Approach, Anterior Column, Open Approach (ICD-10-PCS; principal; 2024-05-30 13:30)
DX: M47.26 Other spondylosis with radiculopathy, lumbar region (principal); M96.0 Pseudarthrosis after fusion or arthrodesis; F31.9 Bipolar disorder, unspecified; I10 Essential (primary) hypertension; E03.9 Hypothyroidism, unspecified; D72.828 Other elevated white blood cell count; M48.062 Spinal stenosis, lumbar region with neurogenic claudication; G47.8 Other sleep disorders; G89.29 Other chronic pain; E78.5 Hyperlipidemia, unspecified; I25.10 Atherosclerotic heart disease of native coronary artery without angina pectoris; Z79.891 Long term (current) use of opiate analgesic; Z79.02 Long term (current) use of antithrombotics/antiplatelets; Z79.890 Hormone replacement therapy; Z79.899 Other long term (current) drug therapy; Z95.5 Presence of coronary angioplasty implant and graft; Z87.891 Personal history of nicotine dependence; Z88.5 Allergy status to narcotic agent; Z88.0 Allergy status to penicillin; Z88.1 Allergy status to other antibiotic agents; I25.2 Old myocardial infarction; Z86.14 Personal history of Methicillin resistant Staphylococcus aureus infection; Z88.6 Allergy status to analgesic agent

== ENCOUNTER 2024-06-12 01:15 | Observation (INO) | payer MEDICARE ==
--- NOTE | 2024-06-12 02:07 | ED ---
Back Pain HPI - General Chief Complaint: Back Pain/Injury Stated Complaint: back pain Time Seen by Provider: 06/12/24 02:04 Source: patient, RN notes reviewed, old records reviewed Mode of arrival: ambulatory Limitations: no limitations - History of Present Illness Initial Comments: This 64-year-old female to the ER for evaluation today. Patient presents today for evaluation of back pain postoperative back pain with recent back surgery about 2 weeks ago here at this hospital. Patient has been taking a little bit more pain meds than normal she does admit to that but states the pain was severe tonight. No fevers maybe a little confusion MD Complaint: back pain, other (Back surgery) -: week(s) Similar Symptoms Previously: Yes Place: home Radiation: none Severity: moderate Severity scale (1-10): 7 Consistency: constant Improves With: none Worsens With: none Associated Symptoms: denies other symptoms - Related Data Home Medications Medication Instructions Recorded Confirmed Metoprolol Succinate (ER) [Toprol 25 mg PO DAILY 07/10/21 06/12/24 XL] Oxybutynin Chloride [oxyBUTYnin 10 mg PO HS 10/30/22 06/12/24 chloride ER] Clopidogrel [Plavix] 75 mg PO DAILY 10/15/23 06/12/24 oxyCODONE-APAP 10-325MG [Percocet 1 tab PO QID PRN 10/15/23 06/12/24 10-325 mg] Amitriptyline HCl [Elavil] 30 mg PO HS 12/10/23 06/12/24 Cholecalciferol (Vitamin D3) 50 mcg PO DAILY 12/10/23 06/12/24 [Vitamin D3 (50 Mcg = 2000 Iu)] Isosorbide Mononitrate [Imdur] 120 mg PO DAILY 12/10/23 06/12/24 Levothyroxine Sodium [Synthroid] 125 mcg PO DAILY 12/10/23 06/12/24 Multivitamins, Thera [Multivitamin 1 tab PO DAILY 12/10/23 06/12/24 (formulary)] QUEtiapine [SEROquel] 400 mg PO HS 12/10/23 06/12/24 Vitamin C/Biotin [Hair, Skin and 1 tab PO DAILY 12/10/23 06/12/24 Nails Chew] Albuterol Inhaler [Ventolin Hfa 1 - 2 puff INHALATION RT-Q6H PRN 06/12/24 06/12/24 Inhaler] Pregabalin [Lyrica] 150 mg PO BID 06/12/24 06/12/24 Rosuvastatin [Crestor] 10 mg PO HS 06/12/24 06/12/24 Vilazodone HCl [Viibryd] 40 mg PO DAILY 06/12/24 06/12/24 oxyCODONE HCL [OxyCONTIN] 20 mg PO Q12H 06/12/24 06/12/24 Previous Rx's Medication Instructions Recorded Losartan [Cozaar] 25 mg PO DAILY #30 tab 12/12/23 Cyclobenzaprine [Flexeril] 5 mg PO BID PRN #28 tablet 06/04/24 Allergies Allergy/AdvReac Type Severity Reaction Status Date / Time ciprofloxacin [From Cipro] Allergy Anaphylaxis Verified 06/12/24 09:48 morphine Allergy Hallucinati Verified 06/12/24 09:48 ons Penicillins Allergy Swelling/Hi Verified 06/12/24 09:48 ves vancomycin Allergy Dyspnea Verified 06/12/24 09:48 ketorolac tromethamine AdvReac Itching Verified 06/12/24 09:48 [From Toradol] NSAIDS (Non-Steroidal AdvReac STOMACH Verified 06/12/24 09:48 Anti-Inflamma ULCER Review of Systems ROS Statement: Those systems with pertinent positive or pertinent negative responses have been documented in the HPI. ROS Other: All systems not noted in ROS Statement are negative. Past Medical History Past Medical History: Coronary Artery Disease (CAD), Chest Pain / Angina, Fibromyalgia, Hyperlipidemia, Hypertension, Myocardial Infarction (CO), Osteoarthritis (OA), Thyroid Disorder Additional Past Medical History / Comment(s): interstitial cystitis; constipation, gallstones, LUMBAR BACK PAIN Last Myocardial Infarction Date:: 2013 History of Any Multi-Drug Resistant Organisms: MRSA Date of last positivie culture/infection: 2022 MDRO Source:: from surgery Past Surgical History: Back Surgery, Bladder Surgery, Breast Surgery, Cholecystectomy, Heart Catheterization With Stent, Hysterectomy, Orthopedic Surgery Additional Past Surgical History / Comment(s): bladder stimulator, neck surgery, total 6 cardiac stents - back fusion, neck fusion, jeff bunionectomy, revision of back surgery screws, cage and rods were suppose to be placed but DR Nova doesn't see them on imaging. Past Anesthesia/Blood Transfusion Reactions: No Reported Reaction Date of Last Stent Placement:: approx 3 yrs ago Past Psychological History: Anxiety, Bipolar, Depression, Panic Disorder Smoking Status: Current every day smoker Past Alcohol Use History: None Reported Past Drug Use History: Marijuana - Past Family History Father Family Medical History: Cancer General Exam General appearance: alert, in no apparent distress, anxious Head exam: Present: atraumatic, normocephalic, normal inspection Eye exam: Present: normal appearance, PERRL, EOMI. Absent: scleral icterus, conjunctival injection, periorbital swelling ENT exam: Present: normal exam, mucous membranes moist Neck exam: Present: normal inspection. Absent: tenderness, meningismus, lymphadenopathy Respiratory exam: Present: normal lung sounds bilaterally. Absent: respiratory distress, wheezes, rales, rhonchi, stridor Cardiovascular Exam: Present: regular rate, normal rhythm, normal heart sounds. Absent: systolic murmur, diastolic murmur, rubs, gallop, clicks GI/Abdominal exam: Present: soft, normal bowel sounds. Absent: distended, tenderness, guarding, rebound, rigid Extremities exam: Present: normal inspection, full ROM, normal capillary refill. Absent: tenderness, pedal edema, joint swelling, calf tenderness Back exam: Present: normal inspection Neurological exam: Present: alert, oriented X3, CN II-XII intact Psychiatric exam: Present: normal affect, normal mood Skin exam: Present: warm, dry, intact, normal color. Absent: rash Course Vital Signs 06/12/24 06/12/24 06/12/24 01:28 04:17 07:35 Temperature 98.8 F 97.9 F Pulse Rate 78 74 64 Respiratory 12 18 16 Rate Blood Pressure 152/61 157/65 119/81 O2 Sat by Pulse 98 96 Oximetry - Reevaluation(s) Reevaluation #1: 06/12/24 03:00 Record reviewed Reevaluation #2: 06/12/24 03:00 Symptoms unchanged Reevaluation #3: 06/12/24 03:00 Informed of results and questions answered Reevaluation #4: Was pt. sent in by a medical professional or institution (, PA, OIL WELL PUMPER, urgent care, hospital, or alf...) When possible be specific @ -no Did you speak to anyone other than the patient for history (EMS, parent, family, police, friend...)? What history was obtained from this source @ -no Did you review nursing and triage notes (agree or disagree)? Why? @ -agree Are old charts reviewed (outside hosp., previous admission, EMS record, old EKG, old radiological studies, urgent care reports/EKG's, alf records)? Report findings @ -yes Differential Diagnosis (chest pain, altered mental status, abdominal pain women, abdominal pain men, vaginal bleeding, weakness, fever, dyspnea, syncope, headache, dizziness, GI bleed, back pain, seizure, CVA, palpatations, mental health, musculoskeletal)? @ -prior EKG interpreted by me (3pts min.). @ -no X-rays interpreted by me (1pt min.). @ -no CT interpreted by me (1pt min.). @ -no U/S interpreted by me (1pt. min.). @ -no What testing was considered but not performed or refused? (CT, X-rays, U/S, labs)? Why? @ -none What meds were considered but not given or refused? Why? @ -none Did you discuss the management of the patient with other professionals (professionals i.e. DrBritney, PA, OIL WE[employer] PU[employer]ER, lab, RT, psych nurse, social media senior associate, machine etcher, teacher, community liaison officer, manager case management)? Give summary @ -no Was smoking cessation discussed for >3mins.? @ -no Was critical care preformed (if so, how long)? @ -no Were there social determinants of health that impacted care today? How? (Homelessness, low income, unemployed, alcoholism, drug addiction, transportation, low edu. Level, literacy, decrease access to med. care, halfway, rehab)? @ -none Was there de-escalation of care discussed even if they declined (Discuss DNR or withdrawal of care, Hospice)? DNR status @ -no What co-morbidities impacted this encounter? (DM, HTN, Smoking, COPD, CAD, Ca ncer, CVA, ARF, Chemo, Hep., AIDS, mental health diagnosis, sleep apnea, morbid obesity)? @ -none Was patient admitted / discharged? Hospital course, mention meds given and route, prescriptions, significant lab abnormalities, going to OR and other pertinent info. @ - 64 female to be admitted for postoperative pain control Admitted Undiagnosed new problem with uncertain prognosis? @ -no Drug Therapy requiring intensive monitoring for toxicity (Heparin, Nitro, Insulin, Cardizem)? @ -no Were any procedures done? @ -no Diagnosis/symptom? @ - Acute, or Chronic, or Acute on Chronic? @ -Acute Uncomplicated (without systemic symptoms) or Complicated (systemic symptoms)? @ -Complicated Side effects of treatment? @ -no Exacerbation, Progression, or Severe Exacerbation? @ -exacerbation Poses a threat to life or bodily function? How? (Chest pain, [place], CO, pneumonia, PE, COPD, DKA, ARF, appy, cholecystitis, CVA, Diverticulitis, Homicidal, Suicidal, threat to staff... and all critical care pts) @ -yes postsurgical complication postoperative pain Reevaluation #5: Differential back pain - Consultations Consultation #1: Spoke with admitting physicians who agreed to admit this patient Medical Decision Making - Medical Decision Making 64 female to be admitted for postoperative pain control - Lab Data Result diagrams: 06/13/24 02:53 06/13/24 02:53 Lab Results 06/12/24 06/12/24 06/12/24 Range/Units 02:45 02:45 02:45 WBC 11.2 H (3.8-10.6) k/uL RBC 4.15 (3.80-5.40) m/uL Hgb 13.6 (11.4-16.0) gm/dL Hct 41.5 (34.0-46.0) % MCV 100.0 (80.0-100.0) fL MCH 32.8 (25.0-35.0) pg MCHC 32.7 (31.0-37.0) g/dL RDW 13.4 (11.5-15.5) % Plt Count 364 D (150-450) k/uL MPV 7.8 Neutrophils % 82 % Lymphocytes % 12 % Monocytes % 4 % Eosinophils % 1 % Basophils % 0 % Neutrophils # 9.2 H (1.3-7.7) k/uL Lymphocytes # 1.3 (1.0-4.8) k/uL Monocytes # 0.5 (0-1.0) k/uL Eosinophils # 0.1 (0-0.7) k/uL Basophils # 0.0 (0-0.2) k/uL Sodium 143 (137-145) mmol/L Potassium 4.2 (3.5-5.1) mmol/L Chloride 107 (98-107) mmol/L Carbon Dioxide 25 (22-30) mmol/L Anion Gap 11 mmol/L BUN 14 (7-17) mg/dL Creatinine 0.65 (0.52-1.04) mg/dL Est GFR (CKD-EPI)AfAm >90 (>60 ml/min/1.73 sqM) Est GFR (CKD-EPI)NonAf >90 (>60 ml/min/1.73 sqM) Glucose 105 H (74-99) mg/dL Calcium 9.5 (8.4-10.2) mg/dL Phosphorus 3.9 (2.5-4.5) mg/dL Magnesium 2.1 (1.6-2.3) mg/dL Total Bilirubin 0.7 (0.2-1.3) mg/dL AST 29 (14-36) U/L ALT 14 (4-34) U/L Alkaline Phosphatase 127 H (38-126) U/L NT-Pro-B Natriuret Pep 417 pg/mL Total Protein 6.9 (6.3-8.2) g/dL Albumin 4.1 (3.5-5.0) g/dL TSH 5.160 H (0.465-4.680) mIU/L Free T4 0.61 L (0.78-2.19) ng/dL Urine Color Urine Appearance (Clear) Urine pH (5.0-8.0) Ur Specific [place] (1.001-1.035) Urine Protein (Negative) Urine Glucose (UA) (Negative) Urine Ketones (Negative) Urine Blood (Negative) Urine Nitrite (Negative) Urine Bilirubin (Negative) Urine Urobilinogen (<2.0) mg/dL Ur Leukocyte Esterase (Negative) 06/12/24 Range/Units 04:50 WBC (3.8-10.6) k/uL RBC (3.80-5.40) m/uL Hgb (11.4-16.0) gm/dL Hct (34.0-46.0) % MCV (80.0-100.0) fL MCH (25.0-35.0) pg MCHC (31.0-37.0) g/dL RDW (11.5-15.5) % Plt Count (150-450) k/uL MPV Neutrophils % % Lymphocytes % % Monocytes % % Eosinophils % % Basophils % % Neutrophils # (1.3-7.7) k/uL Lymphocytes # (1.0-4.8) k/uL Monocytes # (0-1.0) k/uL Eosinophils # (0-0.7) k/uL Basophils # (0-0.2) k/uL Sodium (137-145) mmol/L Potassium (3.5-5.1) mmol/L Chloride (98-107) mmol/L Carbon Dioxide (22-30) mmol/L Anion Gap mmol/L BUN (7-17) mg/dL Creatinine (0.52-1.04) mg/dL Est GFR (CKD-EPI)AfAm (>60 ml/min/1.73 sqM) Est GFR (CKD-EPI)NonAf (>60 ml/min/1.73 sqM) Glucose (74-99) mg/dL Calcium (8.4-10.2) mg/dL Phosphorus (2.5-4.5) mg/dL Magnesium (1.6-2.3) mg/dL Total Bilirubin (0.2-1.3) mg/dL AST (14-36) U/L ALT (4-34) U/L Alkaline Phosphatase (38-126) U/L NT-Pro-B Natriuret Pep pg/mL Total Protein (6.3-8.2) g/dL Albumin (3.5-5.0) g/dL TSH (0.465-4.680) mIU/L Free T4 (0.78-2.19) ng/dL Urine Color Colorless Urine Appearance Clear (Clear) Urine pH 6.5 (5.0-8.0) Ur Specific [place] 1.007 (1.001-1.035) Urine Protein Negative (Negative) Urine Glucose (UA) Negative (Negative) Urine Ketones Negative (Negative) Urine Blood Negative (Negative) Urine Nitrite Negative (Negative) Urine Bilirubin Negative (Negative) Urine Urobilinogen <2.0 (<2.0) mg/dL Ur Leukocyte Esterase Negative (Negative) Disposition Clinical Impression: Postoperative pain Disposition: ADMITTED IP TO THIS HOSP Condition: Stable Is patient prescribed a controlled substance at d/c from ED?: No Time of Disposition: 06:00
[2024-06-12 02:57] LABS: Basophils % (A) 0 %; Eosinophils # (A) 0.1 k/uL (0-0.7); Eosinophils % (A) 1 %; HCT 41.5 % (34.0-46.0); HGB 13.6 gm/dL (11.4-16.0); Lymphocytes # (A) 1.3 k/uL (1.0-4.8); Lymphocytes % (A) 12 %; MCH 32.8 pg (25.0-35.0); MCHC 32.7 g/dL (31.0-37.0); Mean Platelet Volume 7.8; Monocytes # (A) 0.5 k/uL (0-1.0); Monocytes % (A) 4 %; Neutrophils # (A) 9.2 k/uL (1.3-7.7); Neutrophils % (A) 82 %; RBC 4.15 m/uL (3.80-5.40); RDW 13.4 % (11.5-15.5); WBC 11.2 k/uL (3.8-10.6)
[2024-06-12 03:03] LABS: Platelet Count 364 k/uL (150-450)
[2024-06-12] MEDS: SODIUM CHLORIDE 0.9% 1,000 ML IV STA ×2 (03:05→05:45)
[2024-06-12] MEDS: SODIUM CHLORIDE 0.9% 500 ML 500 ML IV STA (03:06)
[2024-06-12] MEDS: HYDROmorphone 0.5 MG/0.5 ML SYRINGE IVP STA (03:06)
--- NOTE | 2024-06-12 03:36 | XR ---
EXAM: XR Chest, 1 View CLINICAL HISTORY: ITS.REASON XR Reason: pain TECHNIQUE: Frontal view of the chest. COMPARISON: No relevant prior studies available. FINDINGS: Lungs: No consolidation or mass. Pleural space: No acute findings. Heart: Upper limits of normal heart size. Bones/joints: No acute findings. IMPRESSION: No acute cardiopulmonary process.
[2024-06-12] MEDS: HYDROmorphone 1 MG/ML 1 ML SYRINGE IVP STA ×2 (04:24→05:44)
[2024-06-12 04:39] LABS: ALT 14 U/L (4-34); African American GFR (CKD) >90 (>60 ml/min/1.73 sqM); Albumin 4.1 g/dL (3.5-5.0); Anion Gap 11 mmol/L; Blood Urea Nitrogen 14 mg/dL (7-17); Calcium 9.5 mg/dL (8.4-10.2); Carbon Dioxide 25 mmol/L (22-30); Chloride 107 mmol/L (98-107); Glucose 105 mg/dL (74-99); Non-African American GFR(CKD) >90 (>60 ml/min/1.73 sqM); Sodium 143 mmol/L (137-145); Total Bilirubin 0.7 mg/dL (0.2-1.3); Total Protein 6.9 g/dL (6.3-8.2)
[2024-06-12 04:40] LABS: Potassium 4.2 mmol/L (3.5-5.1)
[2024-06-12 04:41] LABS: AST 29 U/L (14-36); Alkaline Phosphatase 127 U/L (38-126); Magnesium 2.1 mg/dL (1.6-2.3); Phosphorus 3.9 mg/dL (2.5-4.5)
[2024-06-12 04:47] LABS: NT-Pro-B-Type Natriuretic Pept 417 pg/mL
[2024-06-12] MEDS: LORazepam 2 MG/ML INJ IV STA (04:54)
[2024-06-12] MEDS: diphenhydrAMINE 50 MG/ML 1 ML VIAL IVP STA (05:41)
[2024-06-12 05:43] LABS: Appearance,Urine Clear (Clear); Bilirubin,Urine Negative (Negative); Blood,Urine Negative (Negative); Color,Urine Colorless; Glucose,Urine (UA) Negative (Negative); Ketones,Urine Negative (Negative); Leukocyte Esterase,Urine Negative (Negative); Nitrite,Urine Negative (Negative); PH, Urine 6.5 (5.0-8.0); Protein,Urine Negative (Negative); Specific Gravity,Urine 1.007 (1.001-1.035); Urobilinogen,Urine <2.0 mg/dL (<2.0)
[2024-06-12] MEDS: droPERidol 5 MG/2 ML VIAL IVP ONE (05:57)
[2024-06-12] MEDS ORDERED: NALOXONE 0.4 MG/ML 1 ML VIAL IV PRN (06:06)
[2024-06-12] MEDS ORDERED: polyethylene glycoL 3350 17 GM POWD.PACK PO PRN (07:44)
[2024-06-12] MEDS: SODIUM CHLORIDE 0.9% 1,000 ML IV SCH (08:22)
[2024-06-12] MEDS: HYDROmorphone 1 MG/ML 1 ML SYRINGE IVP PRN (08:23)
[2024-06-12] MEDS: ISOSORBIDE MONONITRATE ER 60 MG TAB.ER.24H PO SCH (08:30)
[2024-06-12] MEDS: PREGABALIN 75 MG CAP PO SCH ×2 (08:30→21:09)
[2024-06-12] MEDS: CHOLECALCIFEROL 25 MCG (1000 IU) TABLET PO SCH (08:30)
[2024-06-12] MEDS: MULTIVITAMINS, THERA 1 EACH TAB PO SCH (08:31)
[2024-06-12] MEDS: LOSARTAN 25 MG TAB PO SCH (08:31)
[2024-06-12] MEDS: LEVOTHYROXINE 125 MCG TAB PO SCH (08:31)
[2024-06-12] MEDS: CLOPIDOGREL 75 MG TAB PO SCH (08:31)
[2024-06-12] MEDS: METOPROLOL SUCCINATE (ER) 25 MG TAB.ER.24H PO SCH (08:31)
--- NOTE | 2024-06-12 11:45 | P.HPIM ---
History of Present Illness H&P Date: 06/12/24 History of Presenting Illness: Patient is a very pleasant 64-year-old female with a past medical history of CAD status post stenting on Plavix, hypertension, hyperlipidemia, hypothyroidism, fibromyalgia, anxiety, depression, bipolar disorder and panic disorder with nicotine dependence and daily cannabis use. Patient recently underwent an extensive lumbar back surgery on 05/30/[address] Nova. She returned to the hospital overnight secondary to persistent uncontrolled lower back pain radiating down left leg. Reports experiencing some right lower extremity numbness but states this is her baseline and has been that way since previous back surgery. She otherwise denies having any numbness in her lower extremities including saddlebag anesthesias, denies involuntary loss of bowel or bladder, or any other complaints at this time. Patient denies having any bleeding or drainage from incision, fevers, chills, diaphoresis, headache, lightheadedness, dizziness, chest pain, palpitations, shortness of breath, congestion, abdominal pain, nausea, or vomiting. Patient denies having any difficulties with or changes in her urinary or bowel movements. Upon arrival to the hospital, patient underwent evaluation in the emergency department. Vital signs upon arrival show blood pressure 152/61, heart rate 78, respiratory rate 12, temp 98.8 F, and SpO2 of 98% on room air. Chest x-ray negative for acute cardiopulmonary process. Labs completed and reviewed. CBC showing leukocytosis with WBC count of 11.2. BMP markable. Blood glucose 105. Liver profile showing elevated alkaline phosphatase of 127 otherwise normal findings. proBNP 417. TSH 5.160. Urinalysis negative for infection. Patient medicated for pain and admitted under our services with consultation to orthospine surgery team. Review of systems: Pertinent positives and negatives as discussed in HPI, a complete review of systems was performed and all other systems are negative. Physical exam: Vital signs reviewed and stable. General: Nontoxic, no distress and appears stated age. Derm: Skin warm and dry, normal coloration for ethnicity. Incision to midline lumbar and sacral spine is well-approximated and appears to be healing well with no signs of infection or dehiscence, no surrounding erythema, no bleeding, and no drainage. Sutures are intact. Patient does have mild swelling to left lateral region of incision. Head: Atraumatic, normocephalic and symmetric. Eyes: EOM's intact, no lid lag, and anicteric sclera Mouth: no lip lesions, mucus membranes moist Cardiovascular: regular rate and rhythm with normal S1S2, no murmur, positive posterior tibial pulses bilaterally, and cap refill < 2 seconds. Lungs: Respirations even, regular, and unlabored on room air. Lungs CTA bilaterally, no rhonchi, no rales, no wheezing, and no accessory muscle usage. Abdominal: soft, nontender to palpation, no guarding, no appreciable organomegaly Ext: Movement and sensation intact.. No gross muscle atrophy, no edema, no contractures Neuro: Speech clear, face symmetrical and CN II-XII grossly intact with no noted focal neuro deficits Psych: Alert and oriented to person, place, time, and situation. Appropriate and pleasant affect. Assessment and Plan of Care: Uncontrolled postoperative pain back pain with left lower extremity radiculopathy Status post recent lumbar spine surgery on 05/30/2024 Consult placed to orthospine surgery team. Symptomatic care and pain management. Continue Lyrica 150 mg twice daily and pain control with Dilaudid 1 mg IVP every 3 hours pending further solange mmendations from Orthospine surgery team. Fall precautions CAD status post stenting on Plavix Hypertension Hyperlipidemia Continue cardiac medication regimen with atorvastatin 20 mg nightly, Plavix 75 mg daily, isosorbide mononitrate 120 mg daily, losartan 25 mg daily, and metoprolol 25 mg daily Hypothyroidism Anxiety with depression Bipolar disorder with panic disorder Continue daily medication regimen with Seroquel for 100 mg nightly Elavil 30 mg nightly. Nicotine dependence Order placed for nicotine patch 21 mg daily. Data and imaging reviewed: As stated above in HPI CODE STATUS: Full code DVT prophylaxis: Lovenox Anticipated discharge date: Pending clinical course Anticipated discharge place: Home Patient was seen independently by Nurse Practitioner. This document was prepared using [employer] dictation software. Please allow for errors in regional training manager while rare they do occur. . I reviewed the documentation as provided by the ANNE above, who is the original author of this note. I agree with the documented assessment and plan, with the following changes: none Past Medical History Past Medical History: Coronary Artery Disease (CAD), Chest Pain / Angina, Fibromyalgia, Hyperlipidemia, Hypertension, Myocardial Infarction ([place]), Osteoarthritis (OA), Thyroid Disorder Additional Past Medical History / Comment(s): interstitial cystitis; constipation, gallstones, LUMBAR BACK PAIN Last Myocardial Infarction Date:: 2013 History of Any Multi-Drug Resistant Organisms: MRSA Date of last positivie culture/infection: 2022 MDRO Source:: from surgery Past Surgical History: Back Surgery, Bladder Surgery, Breast Surgery, Cholecystectomy, Heart Catheterization With Stent, Hysterectomy, Orthopedic Surgery Additional Past Surgical History / Comment(s): bladder stimulator, neck surgery, total 6 cardiac stents - back fusion, neck fusion, jeff bunionectomy, revision of back surgery screws, cage and rods were suppose to be placed but DR Nova doesn't see them on imaging. Past Anesthesia/Blood Transfusion Reactions: No Reported Reaction Date of Last Stent Placement:: approx 3 yrs ago Past Psychological History: Anxiety, Bipolar, Depression, Panic Disorder Smoking Status: Current every day smoker Past Alcohol Use History: None Reported Past Drug Use History: Marijuana - Past Family History Father Family Medical History: Cancer Medications and Allergies Home Medications Medication Instructions Recorded Confirmed Type Metoprolol Succinate (ER) [Toprol 25 mg PO DAILY 07/10/21 06/12/24 History XL] Oxybutynin Chloride [oxyBUTYnin 10 mg PO HS 10/30/22 06/12/24 History chloride ER] Clopidogrel [Plavix] 75 mg PO DAILY 10/15/23 06/12/24 History oxyCODONE-APAP 10-325MG [Percocet 1 tab PO QID PRN 10/15/23 06/12/24 History 10-325 mg] Amitriptyline HCl [Elavil] 30 mg PO HS 12/10/23 06/12/24 History Cholecalciferol (Vitamin D3) 50 mcg PO DAILY 12/10/23 06/12/24 History [Vitamin D3 (50 Mcg = 2000 Iu)] Isosorbide Mononitrate [Imdur] 120 mg PO DAILY 12/10/23 06/12/24 History Levothyroxine Sodium [Synthroid] 125 mcg PO DAILY 12/10/23 06/12/24 History Multivitamins, Thera [Multivitamin 1 tab PO DAILY 12/10/23 06/12/24 History (formulary)] QUEtiapine [SEROquel] 400 mg PO HS 12/10/23 06/12/24 History Vitamin C/Biotin [Hair, Skin and 1 tab PO DAILY 12/10/23 06/12/24 History Nails Chew] Losartan [Cozaar] 25 mg PO DAILY #30 tab 12/12/23 06/12/24 Rx Cyclobenzaprine [Flexeril] 5 mg PO BID PRN #28 tablet 06/04/24 06/12/24 Rx Albuterol Inhaler [Ventolin Hfa 1 - 2 puff INHALATION RT-Q6H PRN 06/12/24 06/12/24 History Inhaler] Pregabalin [Lyrica] 150 mg PO BID 06/12/24 06/12/24 History Rosuvastatin [Crestor] 10 mg PO HS 06/12/24 06/12/24 History Vilazodone HCl [Viibryd] 40 mg PO DAILY 06/12/24 06/12/24 History oxyCODONE HCL [OxyCONTIN] 20 mg PO Q12H 06/12/24 06/12/24 History Allergies Allergy/AdvReac Type Severity Reaction Status Date / Time ciprofloxacin [From Cipro] Allergy Anaphylaxis Verified 06/12/24 09:48 morphine Allergy Hallucinati Verified 06/12/24 09:48 ons Penicillins Allergy Swelling/Hi Verified 06/12/24 09:48 ves vancomycin Allergy Dyspnea Verified 06/12/24 09:48 ketorolac tromethamine AdvReac Itching Verified 06/12/24 09:48 [From Toradol] NSAIDS (Non-Steroidal AdvReac STOMACH Verified 06/12/24 09:48 Anti-Inflamma ULCER Physical Exam Osteopathic Statement: *. No significant issues noted on an osteopathic structural exam other than those noted in the History and Physical/Consult. Vitals: Vital Signs Temp Pulse Resp BP Pulse Ox 06/12/24 07:35 97.9 F 64 16 119/81 96 06/12/24 04:17 74 18 157/65 98 06/12/24 01:28 98.8 F 78 12 152/61 Intake and Output 06/11/24 06/12/24 06/12/24 22:59 06:59 14:59 Other: Weight 72.575 kg Results CBC & Chem 7: 06/12/24 02:45 06/12/24 02:45 Labs: Abnormal Lab Results - Last 24 Hours (Table) 06/12/24 06/12/24 Range/Units 02:45 02:45 WBC 11.2 H (3.8-10.6) k/uL Neutrophils # 9.2 H (1.3-7.7) k/uL Glucose 105 H (74-99) mg/dL Alkaline Phosphatase 127 H (38-126) U/L TSH 5.160 H (0.465-4.680) mIU/L
[2024-06-12] MEDS: NICOTINE 21MG/24HR PATCH TRANSDERM SCH (12:34)
--- NOTE | 2024-06-12 12:40 | P.CNOR ---
History of Present Illness - [facility] Consult date: 06/12/24 Consult reason: low back pain History of present illness: Patient is a 64-year-old female who was admitted to [facility] with regards to postoperative pain and other medical issues. Patient recently underwent surgery with Dr. Nova on 05/30/2024. Patient underwent a revision [id number] decompression and fusion with bilateral open SI joint fusions. Since being home, patient has found pain control a little bit of an issue. Patient has been on high-dose narcotics for quite some time, she does see a pain management doctor in [facility], she does take Percocet 10 mg / 325 mg, OxyContin ER 20 mg and Lyrica 150 mg. Patient was evaluated today in the emergency room, she seemed comfortable lying in bed. Patient was able to move around inin bed and move all extremities with very minimal difficulty and pain on exam. She does note some discomfort in that left lower extremity that she feels has been similar to what it was before surgery may be a little bit worse. She denies any loss of bowel or bladder function at this time. She denies any numbness or tingling to the genital or perineal region. She denies any recent falls while at home. Review of Systems Constitutional: Reports as per HPI Past Medical History Past Medical History: Coronary Artery Disease (CAD), Chest Pain / Angina, Fibromyalgia, Hyperlipidemia, Hypertension, Myocardial Infarction (SC), Osteoarthritis (OA), Thyroid Disorder Additional Past Medical History / Comment(s): interstitial cystitis; constipation, gallstones, LUMBAR BACK PAIN Last Myocardial Infarction Date:: 2013 History of Any Multi-Drug Resistant Organisms: MRSA Year Discovered:: 2022 MDRO Source:: from surgery Past Surgical History: Back Surgery, Bladder Surgery, Breast Surgery, Cholecystectomy, Heart Catheterization With Stent, Hysterectomy, Orthopedic Surgery Additional Past Surgical History / Comment(s): bladder stimulator, neck surgery, total 6 cardiac stents - back fusion, neck fusion, jeff bunionectomy, revision of back surgery screws, cage and rods were suppose to be placed but DR Nova doesn't see them on imaging. Past Anesthesia/Blood Transfusion Reactions: No Reported Reaction Date of Last Stent Placement:: approx 3 yrs ago Past Psychological History: Anxiety, Bipolar, Depression, Panic Disorder Smoking Status: Current every day smoker Past Alcohol Use History: None Reported Past Drug Use History: Marijuana - Past Family History Father Family Medical History: Cancer Medications and Allergies Home Medications Medication Instructions Recorded Confirmed Type Metoprolol Succinate (ER) [Toprol 25 mg PO DAILY 07/10/21 06/12/24 History XL] Oxybutynin Chloride [oxyBUTYnin 10 mg PO HS 10/30/22 06/12/24 History chloride ER] Clopidogrel [Plavix] 75 mg PO DAILY 10/15/23 06/12/24 History oxyCODONE-APAP 10-325MG [Percocet 1 tab PO QID PRN 10/15/23 06/12/24 History 10-325 mg] Amitriptyline HCl [Elavil] 30 mg PO HS 12/10/23 06/12/24 History Cholecalciferol (Vitamin D3) 50 mcg PO DAILY 12/10/23 06/12/24 History [Vitamin D3 (50 Mcg = 2000 Iu)] Isosorbide Mononitrate [Imdur] 120 mg PO DAILY 12/10/23 06/12/24 History Levothyroxine Sodium [Synthroid] 125 mcg PO DAILY 12/10/23 06/12/24 History Multivitamins, Thera [Multivitamin 1 tab PO DAILY 12/10/23 06/12/24 History (formulary)] QUEtiapine [SEROquel] 400 mg PO HS 12/10/23 06/12/24 History Vitamin C/Biotin [Hair, Skin and 1 tab PO DAILY 12/10/23 06/12/24 History Nails Chew] Losartan [Cozaar] 25 mg PO DAILY #30 tab 12/12/23 06/12/24 Rx Cyclobenzaprine [Flexeril] 5 mg PO BID PRN #28 tablet 06/04/24 06/12/24 Rx Albuterol Inhaler [Ventolin Hfa 1 - 2 puff INHALATION RT-Q6H PRN 06/12/24 06/12/24 History Inhaler] Pregabalin [Lyrica] 150 mg PO BID 06/12/24 06/12/24 History Rosuvastatin [Crestor] 10 mg PO HS 06/12/24 06/12/24 History Vilazodone HCl [Viibryd] 40 mg PO DAILY 06/12/24 06/12/24 History oxyCODONE HCL [OxyCONTIN] 20 mg PO Q12H 06/12/24 06/12/24 History Allergies Allergy/AdvReac Type Severity Reaction Status Date / Time ciprofloxacin [From Cipro] Allergy Anaphylaxis Verified 06/12/24 09:48 morphine Allergy Hallucinati Verified 06/12/24 09:48 ons Penicillins Allergy Swelling/Hi Verified 06/12/24 09:48 ves vancomycin Allergy Dyspnea Verified 06/12/24 09:48 ketorolac tromethamine AdvReac Itching Verified 06/12/24 09:48 [From Toradol] NSAIDS (Non-Steroidal AdvReac STOMACH Verified 06/12/24 09:48 Anti-Inflamma ULCER Physical Examination Gen: AOx3, NAD VSS stable at this time Integument: Posterior incision from the thoracic to lumbar region is well-healing, nylon sutures are in position. There is no drainage noted, there is no areas of erythema, there is no areas of fluctuance Palpation: Mild tenderness with palpation in the paraspinal region of the thoracic and lumbar spine ROM: Full range of motion in all major muscle groups of the bilateral upper and lower extremities no focal deficits noted Sensory Exam: [Senory exam to light touch is intact C5-T1] [Senosry exam to light touch is intact L2-S1] Motor: 5/5 strength appreciated bilateral upper extremities with shoulder elevation, shoulder abduction, elbow extension, elbow flexion, wrist extension, wrist flexion, cook station 4/5 strength appreciated the bilateral lower extremities with hip flexion, plant arflexion, dorsiflexion, EHL, FHL, knee extension, knee flexion Reflexes: [2/4 in all UE and LE] Negative clonus bilaterally Special Test: Negative straight leg raise bilaterally Results - Labs Labs: Abnormal Lab Results - Last 24 Hours (Table) 06/12/24 06/12/24 06/12/24 Range/Units 02:45 02:45 02:45 WBC 11.2 H (3.8-10.6) k/uL Neutrophils # 9.2 H (1.3-7.7) k/uL Glucose 105 H (74-99) mg/dL Alkaline Phosphatase 127 H (38-126) U/L TSH 5.160 H (0.465-4.680) mIU/L Free T4 0.61 L (0.78-2.19) ng/dL H & H 06/12/24 Range/Units 02:45 Hgb 13.6 (11.4-16.0) gm/dL Hct 41.5 (34.0-46.0) % Result Diagrams: 06/12/24 02:45 06/12/24 02:45 Assessment and Plan Assessment: Postoperative pain History of recent revision [id number] decompression and fusion, bilateral open SI joint fusions Chronic low back pain Multiple medical comorbidities Plan: I was able to discuss the case, this to include both physical exam findings and imaging studies my attending Dr. Nova. No further imaging studies recommended at this time Had a long discussion with patient today regarding her pain control issues, I made it very clear to her that she was good to have an increase in pain from her surgery also taking in consideration the high dose pain medication that she takes in the amount of time she has been on it. Recommending patient avoid Dilaudid at this time, okay to restart her normally prescribed pain medications, this to include oxycodone 10 mg / 325 mg, OxyContin ER 20 mg and Lyrica 150 mg If patient's pain continues to be uncontrollable, recommending consult for pain management for further evaluation PT/OT evaluation Weight-bear as tolerated with walker GI and DVT prophylaxis per primary medical service Will continue to follow patient during hospital stay Time with Patient: Less than 30
[2024-06-12] MEDS ORDERED: DULoxetine HCL 60 MG CAPSULE.DR PO SCH (21:00)
[2024-06-12] MEDS: ATORVASTATIN 20 MG TAB PO SCH (21:09)
[2024-06-12] MEDS: QUEtiapine 400 MG TAB PO SCH (21:10)
[2024-06-12] MEDS: OXYBUTYNIN 10 MG TAB.ER.24 PO SCH (21:10)
[2024-06-12] MEDS: AMITRIPTYLINE HCL 10 MG TAB PO SCH (21:10)
[2024-06-12] MEDS: ONDANSETRON 4 MG/2 ML VIAL IVP PRN (21:21)
[2024-06-13] MEDS: oxyCODONE-APAP 10-325MG 1 EACH TAB PO PRN (02:39)
[2024-06-13] MEDS: ENOXAPARIN 40 MG/0.4 ML SYRINGE SQ SCH (08:58)
[2024-06-13] MEDS: SENNOSIDES-DOCUSATE SODIUM 1 EACH TAB PO PRN (08:59)
[2024-06-13 09:33] LABS: Magnesium 2.1 mg/dL (1.5-2.4)
[2024-06-13 09:35] LABS: ALT 12 U/L (8-44); AST 27 U/L (13-35); Albumin 3.5 g/dL (3.8-4.9); Albumin/Globulin Ratio 1.75 Ratio (1.60-3.17); Alkaline Phosphatase 127 U/L (41-126); BUN/Creat Ratio 11.57 Ratio (12.00-20.00); Blood Urea Nitrogen 8.1 mg/dL (9.0-27.0); Calcium 8.3 mg/dL (8.7-10.3); Carbon Dioxide 23.8 mmol/L (21.6-31.8); Chloride 106 mmol/L (96-109); Glucose 87 mg/dL (70-110); Potassium 4.3 mmol/L (3.5-5.5); Sodium 141 mmol/L (135-145); Total Bilirubin 0.3 mg/dL (0.3-1.2); Total Protein 5.5 g/dL (6.2-8.2)
[2024-06-13 09:49] LABS: HCT 37.1 % (37.2-46.3); HGB 11.9 g/dL (12.0-15.0); MCH 33.1 pg (27.0-32.0); MCHC 32.1 g/dL (32.0-37.0); MCV 103.1 FL (80.0-97.0); Mean Platelet Volume 10.3 FL (9.5-12.2); NRBC Per 100 WBC 0 X 10*3/uL (0.00-0.01); Platelet Count 310 X 10*3/uL (140-440); RDW 13.6 % (11.5-14.5); WBC 6.69 X 10*3/uL (4.50-10.00)
--- NOTE | 2024-06-13 12:13 | P.PN ---
Subjective Progress Note Date: 06/13/24 Hospital Course: Patient is a very pleasant 64-year-old female with a past medical history of CAD status post stenting on Plavix, hypertension, hyperlipidemia, hypothyroidism, fibromyalgia, anxiety, depression, bipolar disorder and panic disorder with nicotine dependence and daily cannabis use. Patient recently underwent an extensive lumbar back surgery on 05/30/[address] Nova. She returned to the hospital overnight secondary to persistent uncontrolled lower back pain radiating down left leg. Reports experiencing some right lower extremity numbn ess but states this is her baseline and has been that way since previous back surgery. She otherwise denies having any numbness in her lower extremities including saddlebag anesthesias, denies involuntary loss of bowel or bladder, or any other complaints at this time. Patient denies having any bleeding or drainage from incision, fevers, chills, diaphoresis, headache, lightheadedness, dizziness, chest pain, palpitations, shortness of breath, congestion, abdominal pain, nausea, or vomiting. Patient denies having any difficulties with or changes in her urinary or bowel movements. Upon arrival to the hospital, patient underwent evaluation in the emergency department. Vital signs upon arrival show blood pressure 152/61, heart rate 78, respiratory rate 12, temp 98.8 F, and SpO2 of 98% on room air. Chest x-ray negative for acute cardiopulmonary process. Labs completed and reviewed. CBC showing leukocytosis with WBC count of 11.2. BMP markable. Blood glucose 105. Liver profile showing elevated alkaline phosphatase of 127 otherwise normal findings. proBNP 417. TSH 5.160. Urinalysis negative for infection. Patient medicated for pain and admitted under our services with consultation to orthospine surgery team. Physical exam: Patient seen and fully evaluated at bedside. She was sleeping and easily awoken via verbal stimuli. Patient reports consistent continued pain to the lower back and left leg but denies having any new numbness or focal weakness. Patient continues to deny having any involuntary loss of bowel or bladder and denies any other needs, questions, or concerns at this time. Vital signs reviewed and stable. General: Nontoxic, no distress and appears stated age. Derm: Skin warm and dry, normal coloration for ethnicity. Incision to midline lumbar and sacral spine is well-approximated and appears to be healing well with no signs of infection or dehiscence, no surrounding erythema, no bleeding, and no drainage. Sutures are intact. Patient does have mild swelling to left lateral region of incision. Head: Atraumatic, normocephalic and symmetric. Eyes: EOM's intact, no lid lag, and anicteric sclera Mouth: no lip lesions, mucus membranes moist Cardiovascular: regular rate and rhythm with normal S1S2, no murmur, positive posterior tibial pulses bilaterally, and cap refill < 2 seconds. Lungs: Respirations even, regular, and unlabored on room air. Lungs CTA bilaterally, no rhonchi, no rales, no wheezing, and no accessory muscle usage. Abdominal: soft, nontender to palpation, no guarding, no appreciable organomegaly Ext: Movement and sensation intact.. No gross muscle atrophy, no edema, no con tractures Neuro: Speech clear, face symmetrical and CN II-XII grossly intact with no noted focal neuro deficits Psych: Alert and oriented to person, place, time, and situation. Appropriate and pleasant affect. Assessment and Plan of Care: Uncontrolled postoperative pain back pain with left lower extremity radiculopathy Status post recent lumbar spine surgery on 05/30/2024 Consult placed to orthospine surgery team. Symptomatic care and pain management. Continue Lyrica 150 mg twice daily and pain control with Dilaudid 1 mg IVP every 3 hours pending further recommendations from Orthospine surgery team. Fall precautions CAD status post stenting on Plavix Hypertension Hyperlipidemia Continue cardiac medication regimen with atorvastatin 20 mg nightly, Plavix 75 mg daily, isosorbide mononitrate 120 mg daily, losartan 25 mg daily, and metoprolol 25 mg daily. Hypothyroidism Continue levothyroxine 125 mcg daily. Anxiety with depression Bipolar disorder with panic disorder Continue daily medication regimen with Seroquel for 100 mg nightly Elavil 30 mg nightly. Nicotine dependence Order placed for nicotine patch 21 mg daily. Data and imaging reviewed: Morning labs completed and reviewed. CBC showing macrocytic anemia with hemoglobin of 11.9 and MCV of 103.1. BMP unremarkable. Blood glucose 87. Magnesium 2.1. Liver profile showing elevated alkaline phosphatase of 127 otherwise normal findings. Vital signs reviewed and stable. Blood pressure 117/69, heart rate 77, respiratory rate 17, temp 98.1 F, and SpO2 of 98% on room air. CODE STATUS: Full code DVT prophylaxis: Lovenox Anticipated discharge date: Pending clearance from orthopedic surgery team, likely discharge within the next [address]: Home Patient was seen independently by Nurse Practitioner. This document was prepared using [employer] dictation software. Please allow for errors in call center representative while rare they do occur. . I reviewed the documentation as provided by the ANNE above, who is the original author of this note. I agree with the documented assessment and plan, with the following changes: none Objective - Vital Signs Vital signs: Vital Signs Temp 98.9 F 06/13/24 02:00 Pulse 60 06/13/24 02:00 Resp 17 06/12/24 15:00 BP 127/55 06/13/24 02:00 Pulse Ox 96 06/13/24 02:00 FiO2 Intake & Output 06/12/24 06/13/24 06/13/24 18:59 06:59 18:59 Intake Total 311 Balance 311 Weight 72.575 kg Intake: Intake, IV Titration 75 Amount Sodium Chloride 0.9% 1, 75 000 ml @ 75 mls/hr IV . [id number] JOHNSON Rx#:[id number] Oral 236 Other: # Voids 3 - Labs CBC & Chem 7: 06/13/24 02:53 06/13/24 02:53 Labs: Abnormal Lab Results - Last 24 Hours (Table) 06/12/24 Range/Units 02:45 Free T4 0.61 L (0.78-2.19) ng/dL
--- NOTE | 2024-06-13 12:26 | P.PN ---
Subjective Progress Note Date: 06/13/24 Principal diagnosis: Postop pain Patient is evaluated today at bedside, she is sleeping when I entered the room. Patient is easily awoken umbel and does cooperate during exam. She states that the pain is feeling a little bit better today. She has continued to ambulate around the room with minimal difficulty. She denies headaches, lightheadedness, chest pain or shortness of breath Objective - Vital Signs Vital signs: Vital Signs Temp 98.1 F 06/13/24 07:00 Pulse 77 06/13/24 07:00 Resp 17 06/13/24 07:00 BP 117/69 06/13/24 07:00 Pulse Ox 98 06/13/24 07:00 FiO2 Intake & Output 06/12/24 06/13/24 06/13/24 18:59 06:59 18:59 Intake Total 311 118 Balance 311 118 Weight 72.575 kg Intake: Intake, IV Titration 75 Amount Sodium Chloride 0.9% 1, 75 000 ml @ 75 mls/hr IV . [id number] JOHNSON Rx#:[id number] Oral 236 118 Other: # Voids 3 - Exam Gen: AOx3, NAD VSS stable at this time Integument: Posterior incision from the thoracic to lumbar region is well-healing, nylon sutures are in position. There is no drainage noted, there is no areas of erythema, there is no areas of fluctuance Palpation: Mild tenderness with palpation in the paraspinal region of the thoracic and kelly mbar spine ROM: Full range of motion in all major muscle groups of the bilateral upper and lower extremities no focal deficits noted Sensory Exam: Senory exam to light touch is intact C5-T1 Senosry exam to light touch is intact L2-S1 Motor: 5/5 strength appreciated bilateral upper extremities with shoulder elevation, shoulder abduction, elbow extension, elbow flexion, wrist extension, wrist fl exion, boxing machine operator 4/5 strength appreciated the bilateral lower extremities with hip flexion, plantarflexion, dorsiflexion, EHL, FHL, knee extension, knee flexion Reflexes: 2/4 in all UE and LE Negative clonus bilaterally Special Test: Negative straight leg raise bilaterally - Labs CBC & Chem 7: 06/13/24 02:53 06/13/24 02:53 Labs: Abnormal Lab Results - Last 24 Hours (Table) 09/09/24 09/09/24 Range/Units 02:53 02:53 RBC 3.60 L (4.10-5.20) X 10*6/uL Hgb 11.9 L (12.0-15.0) g/dL Hct 37.1 L (37.2-46.3) % MCV 103.1 H (80.0-97.0) FL MCH 33.1 H (27.0-32.0) pg BUN 8.1 L (9.0-27.0) mg/dL BUN/Creatinine Ratio 11.57 L (12.00-20.00) Ratio Calcium 8.3 L (8.7-10.3) mg/dL Alkaline Phosphatase 127 H (41-126) U/L Total Protein 5.5 L (6.2-8.2) g/dL Albumin 3.5 L (3.8-4.9) g/dL Assessment and Plan Assessment: Postoperative pain History of recent revision [id number] decompression and fusion, bilateral open SI joint fusions Chronic low back pain Multiple medical comorbidities Plan: Orthopedically patient remains stable for discharge. I did have a long conversation with her today about pain medication use once again. Dilaudid has been decreased to 0.5 mg and will discontinue on 06/14/2024 if patient is still in hospital Recommend restarting patient is normally prescribed pain medications and that she contact pain management after being discharged PT/OT evaluation Weight-bear as tolerated with walker GI and DVT prophylaxis per primary medical service Discussed with nursing to discuss with social work placement options for discharge orthopedically patient can follow-up in the outpatient setting. In the next 3 to 5 days. Please contact our service with any further questions regarding this patient. Time with Patient: Less than 30
[2024-06-13] MEDS: HYDROmorphone 0.5 MG/0.5 ML SYRINGE IVP PRN (12:34)
[2024-06-13] MEDS: CYCLOBENZAPRINE 5 MG TAB PO PRN (12:34)
[2024-06-13] MEDS: ALPRAZolam 0.5 MG TAB PO STA (15:57)
[2024-06-14 08:07] VITALS: BP 116/62; PULSE 59; RESP 16; TEMP 98.2
--- NOTE | 2024-06-14 11:28 | P.DS ---
Providers Date of admission: 06/12/24 06:06 Expected date of discharge: 06/14/24 Attending physician: Roland Berger MD Consults: 06/12/24 06:06 Consult Physician Routine Consulting Provider: Nima Nova Consult Reason/Comments: known Do you want consulting provider notified?: Yes Primary care physician: Nathanael Nogueira Hospital Course: Discharge Diagnosis: Uncontrolled postoperative pain back pain with left lower extremity radiculopathy Status post recent lumbar spine surgery on 05/30/2024 CAD status post stenting on Plavix Hypertension Hyperlipidemia Hypothyroidism Anxiety with depression Bipolar disorder with panic disorder Nicotine dependence Hospital Course: Patient is a very pleasant 64-year-old female with a past medical history of CAD status post stenting on Plavix, hypertension, hyperlipidemia, hypothyroidism, fibromyalgia, anxiety, depression, bipolar disorder and panic disorder with nicotine dependence and daily cannabis use. Patient recently underwent an extensive lumbar back surgery on 05/30/[address] Nova. She returned to the hospital overnight secondary to persistent uncontrolled lower back pain radiating down left leg. Reports experiencing some right lower extremity numbness but states this is her baseline and has been that way since previous back surgery. She otherwise denies having any numbness in her lower extremities including saddlebag anesthesias, denies involuntary loss of bowel or bladder, or any other complaints at this time. Patient denies having any bleeding or drainage from incision, fevers, chills, diaphoresis, headache, lightheadedness, dizziness, chest pain, palpitations, shortness of breath, congestion, abdominal pain, nausea, or vomiting. Patient denies having any difficulties with or changes in her urinary or bowel movements. Upon arrival to the hospital, patient underwent evaluation in the emergency department. Vital signs upon arrival show blood pressure 152/61, heart rate 78, respiratory rate 12, temp 98.8 F, and SpO2 of 98% on room air. Chest x-ray negative for acute cardiopulmonary process. Labs completed and reviewed. CBC showing leukocytosis with WBC count of 11.2. BMP markable. Blood glucose 105. Liver profile showing elevated alkaline phosphatase of 127 otherwise normal findings. proBNP 417. TSH 5.160. Urinalysis negative for infection. Patient medicated for pain and admitted under our services with consultation to orthospine surgery team. Patient was evaluated by orthopedic surgery team recommending no further interventions instructing patient and she will need to follow-up with pain management. Wean patient from Dilaudid over the 48-hour hospitalization, she is medically stable for discharge at this time and has been cleared by orthopedic surgery team for discharge. Patient to follow-up outpatient with PCP, orthopedic surgery, and pain management. Physical exam: Vital signs reviewed and stable. General: Nontoxic, no distress and appears stated age. Derm: Skin warm and dry, normal coloration for ethnicity. Incision to midline lumbar and sacral spine is well-approximated and appears to be healing well with no signs of infection or dehiscence, no surrounding erythema, no bleeding, and no drainage. Sutures are intact. Patient does have mild swelling to left lateral region of incision. Head: Atraumatic, normocephalic and symmetric. Eyes: EOM's intact, no lid lag, and anicteric sclera Mouth: no lip lesions, mucus membranes moist Cardiovascular: regular rate and rhythm with normal S1S2, no murmur, positive posterior tibial pulses bilaterally, and cap refill < 2 seconds. Lungs: Respirations even, regular, and unlabored on room air. Lungs CTA bilaterally, no rhonchi, no rales, no wheezing, and no accessory muscle usage. Abdominal: soft, nontender to palpation, no guarding, no appreciable organomegaly Ext: Movement and sensation intact.. No gross muscle atrophy, no edema, no contractures Neuro: Speech clear, face symmetrical and CN II-XII grossly intact with no noted focal neuro deficits Psych: Alert and oriented to person, place, time, and situation. Appropriate and pleasant affect. A total of 33 minutes of time were spent preparing this complex discharge summary. Pt was discharged on 06/14/2024 at 11:27 AM. Patient was seen independently by Nurse Practitioner. This document was prepared using [employer] dictation software. Please allow for errors in epoxy coatings installer while rare they do occur. I reviewed the documentation as provided by the ANNE above, who is the original author of this note. I agree with the documented assessment and plan, with the following changes: none Patient Condition at Discharge: Stable Plan - Discharge Summary Discharge Rx Participant: No New Discharge Prescriptions: Continue Oxybutynin Chloride [oxyBUTYnin chloride ER] 10 mg PO HS Cholecalciferol (Vitamin D3) [Vitamin D3 (50 Mcg = 2000 Iu)] 50 mcg PO DAILY Isosorbide Mononitrate [Imdur] 120 mg PO DAILY Levothyroxine Sodium [Synthroid] 125 mcg PO DAILY Multivitamins, Thera [Multivitamin (formulary)] 1 tab PO DAILY QUEtiapine [SEROquel] 400 mg PO HS Cyclobenzaprine [Flexeril] 5 mg PO BID PRN #28 tablet PRN Reason: Muscle Spasm Vilazodone HCl [Viibryd] 40 mg PO DAILY Pregabalin [Lyrica] 150 mg PO BID Albuterol Inhaler [Ventolin Hfa Inhaler] 1 - 2 puff INHALATION RT-Q6H PRN PRN Reason: Shortness Of Breath Metoprolol Succinate (ER) [Toprol XL] 25 mg PO DAILY oxyCODONE-APAP 10-325MG [Percocet 10-325 mg] 1 tab PO QID PRN PRN Reason: Pain Clopidogrel [Plavix] 75 mg PO DAILY Amitriptyline HCl [Elavil] 30 mg PO HS Vitamin C/Biotin [Hair, Skin and Nails Chew] 1 tab PO DAILY Losartan [Cozaar] 25 mg PO DAILY #30 tab oxyCODONE HCL [OxyCONTIN] 20 mg PO Q12H Rosuvastatin [Crestor] 10 mg PO HS Discharge Medication List Metoprolol Succinate (ER) [Toprol XL] 25 mg PO DAILY 07/10/21 [History] Oxybutynin Chloride [oxyBUTYnin chloride ER] 10 mg PO HS 10/30/22 [History] Clopidogrel [Plavix] 75 mg PO DAILY 10/15/23 [History] oxyCODONE-APAP 10-325MG [Percocet 10-325 mg] 1 tab PO QID PRN 10/15/23 [History] Amitriptyline HCl [Elavil] 30 mg PO HS 12/10/23 [History] Cholecalciferol (Vitamin D3) [Vitamin D3 (50 Mcg = 2000 Iu)] 50 mcg PO DAILY 12/10/23 [History] Isosorbide Mononitrate [Imdur] 120 mg PO DAILY 12/10/23 [History] Levothyroxine Sodium [Synthroid] 125 mcg PO DAILY 12/10/23 [History] Multivitamins, Thera [Multivitamin (formulary)] 1 tab PO DAILY 12/10/23 [History] QUEtiapine [SEROquel] 400 mg PO HS 12/10/23 [History] Vitamin C/Biotin [Hair, Skin and Nails Chew] 1 tab PO DAILY 12/10/23 [History] Losartan [Cozaar] 25 mg PO DAILY #30 tab 12/12/23 [Rx] Cyclobenzaprine [Flexeril] 5 mg PO BID PRN #28 tablet 06/04/24 [Rx] Albuterol Inhaler [Ventolin Hfa Inhaler] 1 - 2 puff INHALATION RT-Q6H PRN 06/12/24 [History] Pregabalin [Lyrica] 150 mg PO BID 06/12/24 [History] Rosuvastatin [Crestor] 10 mg PO HS 06/12/24 [History] Vilazodone HCl [Viibryd] 40 mg PO DAILY 06/12/24 [History] oxyCODONE HCL [OxyCONTIN] 20 mg PO Q12H 06/12/24 [History] Follow up Appointment(s)/Referral(s): Anamika Dumont MD [REFERRING] - 1 Week (Please call and schedule appointment with residency clinic for outpatient follow-up and PCP management.) [facility] [NON-STAFF] - Nima Nova DO [Doctor of Osteopathic Medicine] - 06/15/24 2:45 pm Patient Instructions/Handouts: Pain Management After Surgery (DC), Narcotic Safety (ED) Discharge/Stand Alone Forms: Who Do I Call?, Community Resources, Outpatient Counseling Discharge Disposition: HOME SELF-CARE
== END 2024-06-14 13:40 | disposition home or self-care (01) ==
LOC: EC 01:15 → 6NMEDSUR 06:06
PROVIDERS: ADMIT Internal Medicine; ATTEND Internal Medicine
DX: M54.50 Low back pain, unspecified (principal); G89.18 Other acute postprocedural pain; M54.10 Radiculopathy, site unspecified; R74.8 Abnormal levels of other serum enzymes; D53.9 Nutritional anemia, unspecified; I25.10 Atherosclerotic heart disease of native coronary artery without angina pectoris; E78.5 Hyperlipidemia, unspecified; I10 Essential (primary) hypertension; F31.9 Bipolar disorder, unspecified; F41.0 Panic disorder [episodic paroxysmal anxiety]; E03.9 Hypothyroidism, unspecified; F17.200 Nicotine dependence, unspecified, uncomplicated; I25.2 Old myocardial infarction; Z95.5 Presence of coronary angioplasty implant and graft; Z98.0 Intestinal bypass and anastomosis status; Z79.02 Long term (current) use of antithrombotics/antiplatelets; Z79.890 Hormone replacement therapy; Z79.899 Other long term (current) drug therapy; Z88.1 Allergy status to other antibiotic agents; Z88.5 Allergy status to narcotic agent; Z88.0 Allergy status to penicillin; Z88.6 Allergy status to analgesic agent
CPT/HCPCS: 36415; 71045; 80053; 81003; 83735; 83880; 84100; 84439; 84443; 85025; 85027; 96361; 96372; 96374; 96375; 96376; 99284

== ENCOUNTER 2024-07-23 13:55 | Observation (INO) | payer MEDICARE ==
--- NOTE | 2024-07-23 14:27 | ED ---
Chest Pain HPI - General Source: patient Mode of arrival: ambulatory Limitations: no limitations - History of Present Illness MD Complaint: chest pain Onset/Timin -: days(s) Onset: during rest Pain Location: right chest Pain Radiation: RUE, back, neck Severity: moderate Consistency: constant Improves With: nitroglycerin Context: recent surgery <Papo Garces - Last Filed: 07/23/24 14:32> <Jason Gonzalez - Last Filed: 07/23/24 21:28> - General Stated Complaint: back pain Time Seen by Provider: 07/23/24 14:10 - History of Present Illness Initial Comments: Quick note: This is a 64-year-old female presenting with right-sided angina x 3 days. Patient endorses right-sided chest pain radiating to right neck, shoulder and upper arm with associated dizziness. Patient endorses history of stents, noting nitroglycerin relieves pain. Patient endorses history of lower back surgery at the end of May of this year. Endorses ongoing left back pain that radiates to left inguinal region. Patient states that she was prescribed Percocet 10 mg 3 times daily but has been taking them 4-5 times per day, causing her to run out earlier than expected. Patient states she was seen at the pain clinic on July 08 but does not have a follow-up appointment with them. P meaghan endorses running out of Percocets, stating that she is now experiencing withdrawal effects. (Papo Garces) Patient is a 64-year-old female presents with multiple complaints. Patient had an episode of chest pain earlier today. States it was on the right but also on the left and was associate with some dizziness and involvement of the shoulders and neck. This all resolved prior to arrival. Does have a history of multiple cardiac stents. Patient also has a history of recent lower back surgery and has been having ongoing lower back pain. Recently took all of her Percocets and is out of pain meds at home. Is complaining currently of lower back pain but presents emergency department over concern for the chest pain. No other acute complaints at this time. Denies any saddle paresthesias, lower extremity paralysis, urinary or bowel incontinence or retention. Denies any fevers, chills, abdominal pain. No other acute complaints. Presents for further e valuation at this time. (Jason Gonzalez) - Related Data Home Medications Medication Instructions Recorded Confirmed Metoprolol Succinate (ER) [Toprol 25 mg PO DAILY 07/10/21 07/23/24 XL] Oxybutynin Chloride [oxyBUTYnin 10 mg PO HS 10/30/22 07/23/24 chloride ER] Clopidogrel [Plavix] 75 mg PO DAILY 10/15/23 07/23/24 oxyCODONE-APAP 10-325MG [Percocet 1 tab PO QID PRN 10/15/23 07/23/24 10-325 mg] Amitriptyline HCl [Elavil] 30 mg PO HS 12/10/23 07/23/24 Cholecalciferol (Vitamin D3) 50 mcg PO DAILY 12/10/23 07/23/24 [Vitamin D3 (50 Mcg = 2000 Iu)] Isosorbide Mononitrate [Imdur] 120 mg PO DAILY 12/10/23 07/23/24 Levothyroxine Sodium [Synthroid] 125 mcg PO DAILY 12/10/23 07/23/24 Multivitamins, Thera [Multivitamin 1 tab PO DAILY 12/10/23 07/23/24 (formulary)] QUEtiapine [SEROquel] 400 mg PO HS 12/10/23 07/23/24 Vitamin C/Biotin [Hair, Skin and 1 tab PO DAILY 12/10/23 07/23/24 Nails Chew] Albuterol Inhaler [Ventolin Hfa 1 - 2 puff INHALATION RT-Q6H PRN 06/12/24 07/23/24 Inhaler] Pregabalin [Lyrica] 150 mg PO BID 06/12/24 07/23/24 Rosuvastatin [Crestor] 10 mg PO HS 06/12/24 07/23/24 Vilazodone HCl [Viibryd] 40 mg PO DAILY 06/12/24 07/23/24 oxyCODONE HCL [OxyCONTIN] 20 mg PO Q12H 06/12/24 07/23/24 Previous Rx's Medication Instructions Recorded Losartan [Cozaar] 25 mg PO DAILY #30 tab 12/12/23 Cyclobenzaprine [Flexeril] 5 mg PO BID PRN #28 tablet 06/04/24 Allergies Allergy/AdvReac Type Severity Reaction Status Date / Time ciprofloxacin [From Cipro] Allergy Anaphylaxis Verified 07/23/24 15:54 morphine Allergy Hallucinati Verified 07/23/24 15:54 ons Penicillins Allergy Swelling/Hi Verified 07/23/24 15:54 ves vancomycin Allergy Dyspnea Verified 07/23/24 15:54 ketorolac tromethamine AdvReac Itching Verified 07/23/24 15:54 [From Toradol] NSAIDS (Non-Steroidal AdvReac STOMACH Verified 07/23/24 15:54 Anti-Inflamma ULCER Review of Systems ROS Other: All systems not noted in ROS Statement are negative. <Papo Garces - Last Filed: 07/23/24 14:32> ROS Other: All systems not noted in ROS Statement are negative. <Jason Gonzalez - Last Filed: 07/23/24 21:28> ROS Statement: Those systems with pertinent positive or pertinent negative responses have been documented in the HPI. Review of Systems: CONST: Denies fever EYES: Denies blurry vision ENT: Denies nasal congestion C/V: Denies Chest pain RESP: Denies shortness of breath GI: Denies abdominal pain : Denies dysuria SKIN: Denies rash. MSK: Endorses s back pain NEURO: Denies headache (Jason Gonzalez) EKG Findings - EKG Comments: EKG Findings:: 12-lead Electrocardiogram Interpretation Note. EKG was reviewed and interpreted by myself. 12-lead ECG performed at 1517 is interpreted by me as revealing normal sinus rhythm at a rate of 68 beats per minute. [place] is normal. CO interval is 165 ms, QRS duration is 89 ms, QTc is 391 ms.. There were no ST or T wave abnormalities to suggest myocardial ischemia or injury. R wave progression across the precordium was satisfactory. By my interpretation this EKG is non-diagnostic for acute ischemia. <Jason Gonzalez - Last Filed: 07/23/24 21:28> Past Medical History Past Medical History: Coronary Artery Disease (CAD), Chest Pain / Angina, Fibromyalgia, Hyperlipidemia, Hypertension, Myocardial Infarction ([place]), Osteoarthritis (OA), Thyroid Disorder Additional Past Medical History / Comment(s): interstitial cystitis; constipation, gallstones, LUMBAR BACK PAIN Last Myocardial Infarction Date:: 2013 History of Any Multi-Drug Resistant Organisms: MRSA Date of last positivie culture/infection: 2022 MDRO Source:: from surgery Past Surgical History: Back Surgery, Bladder Surgery, Breast Surgery, Cholecystectomy, Heart Catheterization With Stent, Hysterectomy, Orthopedic Surgery Additional Past Surgical History / Comment(s): bladder stimulator, neck surgery, total 6 cardiac stents - back fusion, neck fusion, jeff bunionectomy, revision of back surgery screws, cage and rods were suppose to be placed but DR Nova doesn't see them on imaging. Past Anesthesia/Blood Transfusion Reactions: No Reported Reaction Date of Last Stent Placement:: approx 3 yrs ago Past Psychological History: Anxiety, Bipolar, Depression, Panic Disorder Smoking Status: Current every day smoker Past Alcohol Use History: None Reported Past Drug Use History: Marijuana, Prescription Drug Abuse - Past Family History Father Family Medical History: Cancer <Papo Garces - Last Filed: 07/23/24 14:32> General Exam Limitations: no limitations <Papo Garces - Last Filed: 07/23/24 14:32> <Jason Gonzalez - Last Filed: 07/23/24 21:28> - General Exam Comments Initial Comments: Visual Physical Exam Vital signs reviewed General: Well-appearing, nontoxic, no acute distress. Head: Normocephalic, atraumatic Eyes: PERRLA, EOMI ENT: Airway patent Chest: Nonlabored breathing Skin: No visual rash, normal skin tone Neuro: Alert and oriented 3 Musculoskeletal: No gross abnormalities (Papo Garces) General: Appears in no acute distress. HEAD: Normal with no signs of head trauma. EYES: PERRLA, EOMI, conjunctiva normal, no discharge. ENT: Hearing grossly intact, normal oropharynx. RESPIRATORY: Clear breath sounds bilaterally. No wheezes, rales, or rhonchi. C/V: Regular rate and rhythm. S1 and S2 auscultated, no edema, peripheral pulses 2+ and intact throughout ABD: Abd is soft, nontender, nondistended EXT: Normal range of motion, no obvious deformity. Mild midline lumbar spine tenderness to palpation. SKIN: No rashes or lesions observed on exposed skin. NEURO: Alert and oriented x 4. (Jason Gonzalez) Course Vital Signs 07/23/24 07/23/24 14:22 17:31 Temperature 98.5 F Pulse Rate 88 66 Respiratory 18 18 Rate Blood Pressure 129/71 140/78 O2 Sat by Pulse 96 94 L Oximetry Chest Pain MDM <Papo Garces - Last Filed: 07/23/24 14:32> <CarlosJason - Last Filed: 07/23/24 21:28> - MDM I completed the quick note portion of this chart signed SIDNEY Avilez (Papo Garces) Was pt. sent in by a medical professional or institution (ALIYA Fuller, [employer], urgent care, hospital, or usp...) When possible be specific @ -No Did you speak to anyone other than the patient for history (EMS, parent, family, police, friend...)? What history was obtained from this source @ -No Did you review nursing and triage notes (agree or disagree)? Why? @ -I reviewed and agree with nursing and triage notes Were old charts reviewed (outside hosp., previous admission, EMS record, old EKG, old radiological studies, urgent care reports/EKG's, usp records)? Report findings @ -Compared current EKG with previous EKG. No obvious significant change Differential Diagnosis (chest pain, altered mental status, abdominal pain women, abdominal pain men, vaginal bleeding, weakness, fever, dyspnea, syncope, headach e, dizziness, GI bleed, back pain, seizure, CVA, palpatations, mental health, musculoskeletal)? @ -Differential Chest Pain: Stable Angina, Unstable Angina, STEMI, NSTEMI Aortic Dissection, Pneumothorax, Musculoskeletal, Esophageal Spasm GERD, Cholecystitis, Pancreatitis, Zoster, this is not meant to be an all-inclusive list. EKG interpreted by me (3pts min.). @ -As above X-rays interpreted by me (1pt min.). @ -Chest x-ray reveals no obvious acute cardiopulmonary process. CT interpreted by me (1pt min.). @ -Lumbar spine reveals a possible seroma postop however no other obvious acute process. U/S interpreted by me (1pt. min.). @ -None done What testing was considered but not performed or refused? (CT, X-rays, U/S, labs)? Why? @ -None What meds were considered but not given or refused? Why? @ -None Did you discuss the management of the patient with other professionals (professionals i.e. ALIYA Fuller, [employer], lab, RT, psych nurse, licensed master social worker, button pusher, teacher, tactical deception plans officer, immigration case manager)? Give summary @ -Discussed with the admitting team, Dr. White who accepted the admission. Was smoking cessation discussed for >3mins.? @ -No Was critical care preformed (if so, how long)? @ -No Were there social determinants of health that impacted care today? How? (Homelessness, low income, unemployed, alcoholism, drug addiction, transportation, low edu. Level, literacy, decrease access to med. care, custodial, rehab)? @ -No Was there de-escalation of care discussed even if they declined (Discuss DNR or withdrawal of care, Hospice)? DNR status @ -No What co-morbidities impacted this encounter? (DM, HTN, Smoking, COPD, CAD, Cancer, CVA, ARF, Chemo, Hep., AIDS, mental health diagnosis, sleep apnea, morbid obesity)? @ -CAD Was patient admitted / discharged? Hospital course, mention meds given and route, prescriptions, significant lab abnormalities, going to OR and other pertinent info. @ -Patient presents for chest pain, chronic back pain. Patient will be given analgesia medications. We will obtain cardiac workup. Patient agreement this plan. EKG shows no signs of acute ischemia. Laboratory studies remarkable for undetectable troponin. Remainder the labs unremarkable. Chest x-ray reveals no obvious acute cardiopulmonary process. Lumbar spine CT shows a seroma postop from surgery 2 months ago. I updated the patient. Remains asymptomatic. Heart score is moderate and therefore we will admit the patient due to her chest pain story from earlier today. We will trend the troponin and have cardiology see her. She was in agreement this plan. Dr. Nova consulted for the postop seroma. Patient given aspirin. I spoke with the admitting provider, Dr. White who accepted the admission. Undiagnosed new problem with uncertain prognosis? @ -No Drug Therapy requiring intensive monitoring for toxicity (Heparin, Nitro, Insulin, Cardizem)? @ -No Were any procedures done? @ -No Diagnosis/symptom? @ -Chest pain, postop seroma setting of chronic back pain Acute, or Chronic, or Acute on Chronic? @ -Acute Uncomplicated (without systemic symptoms) or Complicated (systemic symptoms)? @ -Complicated Side effects of treatment? @ -No Exacerbation, Progression, or Severe Exacerbation? @ -No Poses a threat to life or bodily function? How? (Chest pain, [place], [place], pneumonia, PE, COPD, DKA, ARF, appy, cholecystitis, CVA, Diverticulitis, Homicidal, Suicidal, threat to staff... and all critical care pts) @ -Potentially, yes (Jason Gonzalez) Disposition <Papo Garces - Last Filed: 07/23/24 14:32> Time of Disposition: 16:25 <Jason Gonzalez - Last Filed: 07/23/24 21:28> Clinical Impression: Back pain, Chest pain, Postoperative seroma Disposition: ADMITTED IP TO THIS [facility] Condition: Stable
[2024-07-23 15:05] LABS: Basophils % (A) 1 %; Eosinophils # (A) 0.2 k/uL (0-0.7); Eosinophils % (A) 3 %; HCT 46.2 % (34.0-46.0); HGB 14.3 gm/dL (11.4-16.0); Hypochromasia Slight; Lymphocytes # (A) 1.4 k/uL (1.0-4.8); Lymphocytes % (A) 22 %; MCV 103.2 fL (80.0-100.0); Macrocytosis Slight; Mean Platelet Volume 7.6; Monocytes # (A) 0.3 k/uL (0-1.0); Monocytes % (A) 4 %; Neutrophils # (A) 4.3 k/uL (1.3-7.7); Neutrophils % (A) 69 %; Platelet Count 198 k/uL (150-450); RBC 4.47 m/uL (3.80-5.40); RDW 13.8 % (11.5-15.5); WBC 6.3 k/uL (3.8-10.6)
[2024-07-23 15:17] LABS: Partial Thromboplastin Time 26.1 sec (22.0-30.0); Prothrombin Time 10.9 sec (10.0-12.5)
[2024-07-23 15:18] LABS: ALT 13 U/L (4-34); African American GFR (CKD) >90 (>60 ml/min/1.73 sqM); Albumin 4.1 g/dL (3.5-5.0); Anion Gap 8 mmol/L; Blood Urea Nitrogen 12 mg/dL (7-17); Calcium 8.6 mg/dL (8.4-10.2); Carbon Dioxide 22 mmol/L (22-30); Chloride 110 mmol/L (98-107); Glucose 132 mg/dL (74-99); Non-African American GFR(CKD) 89 (>60 ml/min/1.73 sqM); Sodium 140 mmol/L (137-145); Total Bilirubin 0.7 mg/dL (0.2-1.3); Total Protein 6.9 g/dL (6.3-8.2)
[2024-07-23] MEDS: SODIUM CHLORIDE 0.9% 1,000 ML IV STA (15:20)
[2024-07-23] MEDS: MORPHINE SULFATE 4 MG/ML SYRINGE IVP STA (15:20)
[2024-07-23 15:22] LABS: AST 26 U/L (14-36); Potassium 4.1 mmol/L (3.5-5.1)
[2024-07-23 15:23] LABS: Alkaline Phosphatase 79 U/L (38-126)
[2024-07-23] MEDS: LORazepam 0.5 MG TAB PO STA (15:34)
--- NOTE | 2024-07-23 16:03 | XR ---
EXAMINATION TYPE: XR chest 2V DATE OF EXAM: 07/23/2024 3:08 PM CLINICAL INDICATION: Female, 64 years old with history of Chest pain; COMPARISON: Chest radiographs from 06/12/2024 TECHNIQUE: XR chest 2V Frontal view of the chest. FINDINGS: Lungs/Pleura: There is no evidence of pleural effusion, focal consolidation, or pneumothorax. Pulmonary vascularity: Unremarkable. Heart/mediastinum: Cardiomediastinal silhouette is unremarkable. Musculoskeletal: No acute osseous pathology. There is fixation hardware in the lower cervical spine a nd lumbar which appears intact. IMPRESSION: No acute cardiopulmonary disease/process. [facility], , 07/23/2024 4:01 PM
--- NOTE | 2024-07-23 16:41 | CT ---
EXAMINATION TYPE: CT lumbar spine wo con CT DLP: 1196.6 mGycm, Automated exposure control for dose reduction was used. DATE OF EXAM: 07/23/2024 3:56 PM COMPARISON: 05/30/2024. CLINICAL INDICATION: Female, 64 years old with history of back pain; PHH, Low back pain. No injury. TECHNIQUE: Multiple axial images were obtained from the midportion of T11 through the sacroiliac nona nts. Soft tissue and bone windows in coronal and sagittal planes were obtained and reviewed. Contrast used: mL of , (None, if empty). Oral contrast used: (None, if empty). FINDINGS: Alignment: There are 5 lumbar type vertebral bodies within normal alignment. Bone: Postsurgical changes with hardware in the bilateral sacroiliac joints which appears intact.. Ad ditional fixation hardware is seen extending through L2-S1. This hardware is also intact. Discectomy at L2 L3 L3 L4 L4 L5 and L5-S1. Laminectomy changes at these levels. Multilevel degeneration with ost eophytes, disc space narrowing and facet joint arthropathy are present. Discs: T12-L1: No spinal canal or neural foraminal stenosis is identified. L1-L2: No spinal canal or neural foraminal stenosis is identified. L2-L3: No spinal canal or neural foraminal stenosis is identified. L3-L4: No spinal canal or neural foraminal stenosis is identified. L4-L5: No spinal canal or neural foraminal stenosis is identified. L5-S1: No spinal canal or neural foraminal stenosis is identified. Other: Stimulator lead enters the sacrum terminating in the pelvis. Cholecystectomy clips present. Vigil rgical bed fluid collection noted measuring 4.6 x 3.0 x 7.6 cm. IMPRESSION: 1. Postsurgical changes with hardware intact. No evidence for hardware failure. 2. Moderate degeneration changes throughout the spine. 3. Surgical bed fluid collection measuring up to 7.6 cm in greatest length. Possibly postop seroma. [facility], , 07/23/2024 4:39 PM
[2024-07-23] MEDS ORDERED: NALOXONE 0.4 MG/ML 1 ML VIAL IV PRN (16:42)
[2024-07-23] MEDS ORDERED: ONDANSETRON 4 MG/2 ML VIAL IVP PRN (16:42)
[2024-07-23] MEDS ORDERED: MORPHINE SULFATE 4 MG/ML SYRINGE IV PRN (16:42)
[2024-07-23] MEDS ORDERED: ACETAMINOPHEN TAB 325 MG TAB PO PRN (16:42)
[2024-07-23] MEDS ORDERED: CYCLOBENZAPRINE 5 MG TAB PO PRN (17:22)
--- NOTE | 2024-07-23 17:23 | P.HPIM ---
History of Present Illness H&P Date: 07/23/24 History of Presenting Illness: Patient is a very pleasant 64-year-old female with a past medical history of CAD status post stenting on Plavix, hypertension, hyperlipidemia, hypothyroidism, fibromyalgia, anxiety, depression, bipolar disorder and panic disorder, history of prescription drug abuse, and daily cannabis use, nicotine dependence and recently underwent an extensive lumbar back surgery on 05/30/[address] Nova. She presented to the blood today with reports of uncontrolled chronic lower back pain radiating down left lower extremity and reports of midsternal chest pain radiating to left and right anterior chest and into neck. Patient reports this pain began 3 days ago and has progressively worsened, she reports that she has been taking her home Percocet more than prescribed and attempts to control this pain but has been unsuccessful. Patient reports she received her Percocet prescription from pain management clinic on July 08 and due to her uncontrolled lower back pain and new onset chest pain she has taken her entire prescription and is now worried about withdrawal. Patient very anxious tearful at time of examination. She denies having fevers, chills, diaphoresis, headache, lightheadedness, dizziness, palpitations, shortness of breath, cough or congestion, abdominal pain, involuntary loss of bowel or bladder, saddlebag anesthesias, or experiencing any numbness or focal weakness in her extremities. Upon arrival to our facility, patient underwent evaluation in the emergency department. Vital signs upon arrival show blood pressure 129/71, heart rate 88, respiratory rate 18, temp 98.5 F, and SpO2 of 96% on room air. EKG completed showing sinus rhythm at 68 bpm with no significant T wave or ST abnormalities upon personal review and interpretation. Labs completed and reviewed. CBC showing macrocytosis with MCV of 103.2 otherwise normal findings. Coagulation profile normal findings. BMP showing mild hyperchloremia with chloride of 110 otherwise normal findings. Blood glucose 132. Lactic acid 1.5. Liver profile unremarkable. Troponin was negative at less than 0.012. Chest x-ray completed negative for acute cardiopulmonary process. CT lumbar spine completed without contrast showing postsurgical changes with hardware intact, moderate degenerative changes throughout the spine, and surgical bed fluid collection measuring up to 7.6 cm concerning for postop seroma. Review of systems: Pertinent positives and negatives as discussed in HPI, a complete review of systems was performed and all other systems are negative. Physical exam: Vital signs reviewed and stable. General: Nontoxic, no distress and appears stated age. Derm: Skin warm and dry, normal coloration for ethnicity. Head: Atraumatic, normocephalic and symmetric. Eyes: EOM's intact, no lid lag, and anicteric sclera Mouth: no lip lesions, mucus membranes moist Cardiovascular: regular rate and rhythm with normal S1S2, no murmur, positive posterior tibial pulses bilaterally, and cap refill < 2 seconds. Lungs: Respirations even, regular, and unlabored on room air. Lungs CTA bilaterally, no rhonchi, no rales, no wheezing, and no accessory muscle usage. Abdominal: soft, nontender to palpation, no guarding, no appreciable organomeg jessica Ext: ROM intact. No gross muscle atrophy, no edema, no contractures Neuro: Speech clear, face symmetrical and CN II-XII grossly intact with no noted focal neuro deficits Psych: Alert and oriented to person, place, time, and situation. Appropriate and pleasant affect. Assessment and Plan of Care: Chest pain, rule out acute coronary event CAD status post stenting on Plavix Hypertension Hyperlipidemia -Cardiology consulted, appreciate recommendations -Telemetry monitoring -Trend troponins -Cardiac diet Continue cardiac medication regimen with aspirin 81 mg daily, rosuvastatin 10 mg nightly,, Plavix 75 mg daily, isosorbide mononitrate 120 mg daily, losartan 25 mg daily, and metoprolol 25 mg daily. -Lipid profile with a.m. labs. Postoperative seroma Uncontrolled chronic back pain with left lower extremity radiculopathy Status post lumbar spine surgery on 05/30/2024 Prescription drug abuse/overuse CT lumbar spine completed without contrast showing postsurgical changes with hardware intact, moderate degenerative changes throughout the spine, and surgical bed fluid collection measuring up to 7.6 cm concerning for postop seroma. Consult placed to orthospine surgery team. Symptomatic care and pain management. Continue Lyrica 150 mg twice daily, OxyContin ER 20 mg every 12 hours, and Percocet 10/325 mg every 6 hours as needed for breakthrough pain. Fall precautions Hypothyroidism Continue levothyroxine 125 mcg daily. Anxiety with depression Bipolar disorder with panic disorder Continue daily medication regimen with Seroquel 400 mg nightly and Elavil 30 mg nightly. Nicotine dependence Recommend smoking cessation. Order placed for nicotine patch 21 mg daily. Daily cannabinoid use disorder Recommend cessation of use. Data and imaging reviewed: As stated above in HPI The patient is admitted with an anticipated less than 2 midnight stay for evaluation of chest pain and uncontrolled chronic back pain CODE STATUS: Full code DVT prophylaxis: Subcutaneous heparin Anticipated discharge date: Likely within the next 24 to [address]: Home Patient was seen independently by Nurse Practitioner. This document was prepared using [employer] dictation software. Please allow for errors in gravity prospecting observer helper while rare they do occur. . I reviewed the documentation as provided by the ANNE above, who is the original author of this note. I agree with the documented assessment and plan, with the following changes: none Past Medical History Past Medical History: Coronary Artery Disease (CAD), Chest Pain / Angina, Fibromyalgia, Hyperlipidemia, Hypertension, Myocardial Infarction ([place]), Osteoarthritis (OA), Thyroid Disorder Additional Past Medical History / Comment(s): interstitial cystitis; constipation, gallstones, LUMBAR BACK PAIN Last Myocardial Infarction Date:: 2013 History of Any Multi-Drug Resistant Organisms: MRSA Date of last positivie culture/infection: 2022 MDRO Source:: from surgery Past Surgical History: Back Surgery, Bladder Surgery, Breast Surgery, Cholecystectomy, Heart Catheterization With Stent, Hysterectomy, Orthopedic Surgery Additional Past Surgical History / Comment(s): bladder stimulator, neck surgery, total 6 cardiac stents - back fusion, neck fusion, jeff bunionectomy, revision of back surgery screws, cage and rods were suppose to be placed but DR Nova doesn't see them on imaging. Past Anesthesia/Blood Transfusion Reactions: No Reported Reaction Date of Last Stent Placement:: approx 3 yrs ago Past Psychological History: Anxiety, Bipolar, Depression, Panic Disorder Smoking Status: Current every day smoker Past Alcohol Use History: None Reported Past Drug Use History: Marijuana, Prescription Drug Abuse - Past Family History Father Family Medical History: Cancer Medications and Allergies Home Medications Medication Instructions Recorded Confirmed Type Metoprolol Succinate (ER) [Toprol 25 mg PO DAILY 07/10/21 07/23/24 History XL] Oxybutynin Chloride [oxyBUTYnin 10 mg PO HS 10/30/22 07/23/24 History chloride ER] Clopidogrel [Plavix] 75 mg PO DAILY 10/15/23 07/23/24 History oxyCODONE-APAP 10-325MG [Percocet 1 tab PO QID PRN 10/15/23 07/23/24 History 10-325 mg] Amitriptyline HCl [Elavil] 30 mg PO HS 12/10/23 07/23/24 History Cholecalciferol (Vitamin D3) 50 mcg PO DAILY 12/10/23 07/23/24 History [Vitamin D3 (50 Mcg = 2000 Iu)] Isosorbide Mononitrate [Imdur] 120 mg PO DAILY 12/10/23 07/23/24 History Levothyroxine Sodium [Synthroid] 125 mcg PO DAILY 12/10/23 07/23/24 History Multivitamins, Thera [Multivitamin 1 tab PO DAILY 12/10/23 07/23/24 History (formulary)] QUEtiapine [SEROquel] 400 mg PO HS 12/10/23 07/23/24 History Vitamin C/Biotin [Hair, Skin and 1 tab PO DAILY 12/10/23 07/23/24 History Nails Chew] Losartan [Cozaar] 25 mg PO DAILY #30 tab 12/12/23 07/23/24 Rx Cyclobenzaprine [Flexeril] 5 mg PO BID PRN #28 tablet 06/04/24 07/23/24 Rx Albuterol Inhaler [Ventolin Hfa 1 - 2 puff INHALATION RT-Q6H PRN 06/12/24 07/23/24 History Inhaler] Pregabalin [Lyrica] 150 mg PO BID 06/12/24 07/23/24 History Rosuvastatin [Crestor] 10 mg PO HS 06/12/24 07/23/24 History Vilazodone HCl [Viibryd] 40 mg PO DAILY 06/12/24 07/23/24 History oxyCODONE HCL [OxyCONTIN] 20 mg PO Q12H 06/12/24 07/23/24 History Allergies Allergy/AdvReac Type Severity Reaction Status Date / Time ciprofloxacin [From Cipro] Allergy Anaphylaxis Verified 07/23/24 15:54 morphine Allergy Hallucinati Verified 07/23/24 15:54 ons Penicillins Allergy Swelling/Hi Verified 07/23/24 15:54 ves vancomycin Allergy Dyspnea Verified 07/23/24 15:54 ketorolac tromethamine AdvReac Itching Verified 07/23/24 15:54 [From Toradol] NSAIDS (Non-Steroidal AdvReac STOMACH Verified 07/23/24 15:54 Anti-Inflamma ULCER Physical Exam Osteopathic Statement: *. No significant issues noted on an osteopathic structural exam other than those noted in the History and Physical/Consult. Vitals: Vital Signs Temp Pulse Resp BP Pulse Ox 07/23/24 14:22 98.5 F 88 18 129/71 96 Intake and Output 07/23/24 07/23/24 07/23/24 06:59 14:59 22:59 Other: Weight 72.575 kg Results CBC & Chem 7: 07/23/24 14:54 07/23/24 14:54 Labs: Abnormal Lab Results - Last 24 Hours (Table) 07/23/24 07/23/24 Range/Units 14:54 14:54 Hct 46.2 H (34.0-46.0) % MCV 103.2 H (80.0-100.0) fL Chloride 110 H (98-107) mmol/L Glucose 132 H (74-99) mg/dL
[2024-07-23] MEDS: ASPIRIN 81 MG PO STA (17:49)
[2024-07-23] MEDS: HEPARIN SODIUM,PORCINE 5,000 UNIT/ML 1 ML VIAL SQ SCH (17:50)
[2024-07-23] MEDS: oxyCODONE-APAP 10-325MG 1 EACH TAB PO STA (18:36)
[2024-07-23] MEDS: oxyCODONE ER 20 MG TAB.ER.12H PO SCH (22:17)
[2024-07-23] MEDS: ATORVASTATIN 20 MG TAB PO SCH (22:18)
[2024-07-23] MEDS: PREGABALIN 75 MG CAP PO SCH (22:18)
[2024-07-23] MEDS: AMITRIPTYLINE HCL 10 MG TAB PO SCH (22:19)
[2024-07-23] MEDS: QUEtiapine 400 MG TAB PO SCH (22:19)
[2024-07-23] MEDS: OXYBUTYNIN 10 MG TAB.ER.24 PO SCH (22:20)
[2024-07-24] MEDS: LEVOTHYROXINE 125 MCG TAB PO SCH (06:40)
[2024-07-24 07:34] VITALS: RESP 18
[2024-07-24] MEDS: ISOSORBIDE MONONITRATE ER 60 MG TAB.ER.24H PO SCH (08:20)
[2024-07-24] MEDS: LOSARTAN 25 MG TAB PO SCH (08:21)
[2024-07-24] MEDS: CLOPIDOGREL 75 MG TAB PO SCH (08:21)
[2024-07-24] MEDS: MULTIVITAMINS, THERA 1 EACH TAB PO SCH (08:21)
[2024-07-24] MEDS: METOPROLOL SUCCINATE (ER) 25 MG TAB.ER.24H PO SCH (08:21)
[2024-07-24] MEDS: NICOTINE 21MG/24HR PATCH TRANSDERM SCH (08:22)
[2024-07-24] MEDS: CHOLECALCIFEROL 25 MCG (1000 IU) TABLET PO SCH (08:22)
[2024-07-24] MEDS: ASPIRIN 81 MG PO SCH (08:22)
[2024-07-24] MEDS ORDERED: NON FORMULARY DRUG (Vitamin C/Biotin [Hair, Skin And Nails Chew] 1 EACH Tab.Chew) PO SCH (09:00)
[2024-07-24] MEDS: NON FORMULARY DRUG (Vilazodone Hcl [Viibryd] 40 MG Tablet) PO SCH (09:04)
--- NOTE | 2024-07-24 09:32 | P.CNOR ---
History of Present Illness - [facility] Consult date: 07/24/24 Consult reason: low back pain History of present illness: Patient is a 64-year-old female known to our orthopedic practice. Patient underwent a revision [id number] posterior lateral decompression and fusion on 05/[address] Monroy's and. Patient was actually seen in the office about 4 days ago, she was doing very well at that time. Patient has chronic back pain and is on very high-dose narcotics for this. Patient has continued to do quite well after her most recent surgery. She did come to the hospital due to some worsening back pain and also concerns of chest pain, she has a very significant cardiac history. Patient was evaluated today at bedside, she was admitted to a medical/surgical floor. She was sleeping on exam, she was easily awoken. She answers all my questions adequately. She appears very comfortable in bed lying on her lateral side. Patient states that on Thursday she was lifting some bags of dog food which she thinks may have caused some worsening pain. Patient was taking more than prescribed of her pain medication and is running very low. She is not due for a refill till early next month. She is very concerned about this at this time. She is being followed by both internal medicine and cardiology at this time. Patient denies any loss of bowel or bladder function, new onset lower extremity weakness or paresthesias. Review of Systems Constitutional: Reports as per [facility] Past Medical History Past Medical History: Coronary Artery Disease (CAD), Chest Pain / Angina, Fibromyalgia, Hyperlipidemia, Hypertension, Myocardial Infarction ([place]), Osteoarthritis (OA), Thyroid Disorder Additional Past Medical History / Comment(s): interstitial cystitis; constipation, gallstones, LUMBAR BACK PAIN Last Myocardial Infarction Date:: 2013 History of Any Multi-Drug Resistant Organisms: MRSA Year Discovered:: 2022 MDRO Source:: from surgery Past Surgical History: Back Surgery, Bladder Surgery, Breast Surgery, Cholecystectomy, Heart Catheterization With Stent, Hysterectomy, Orthopedic Surgery Additional Past Surgical History / Comment(s): bladder stimulator, neck surgery, total 6 cardiac stents - back fusion, neck fusion, jeff bunionectomy, revision of back surgery screws, cage and rods were suppose to be placed but DR Nova doesn't see them on imaging. Past Anesthesia/Blood Transfusion Reactions: No Reported Reaction Date of Last Stent Placement:: approx 3 yrs ago Past Psychological History: Anxiety, Bipolar, Depression, Panic Disorder Smoking Status: Current every day smoker Past Alcohol Use History: None Reported Past Drug Use History: Marijuana, Prescription Drug Abuse - Past Family History Father Family Medical History: Cancer Medications and Allergies Home Medications Medication Instructions Recorded Confirmed Type Metoprolol Succinate (ER) [Toprol 25 mg PO DAILY 07/10/21 07/23/24 History XL] Oxybutynin Chloride [oxyBUTYnin 10 mg PO HS 10/30/22 07/23/24 History chloride ER] Clopidogrel [Plavix] 75 mg PO DAILY 10/15/23 07/23/24 History oxyCODONE-APAP 10-325MG [Percocet 1 tab PO QID PRN 10/15/23 07/23/24 History 10-325 mg] Amitriptyline HCl [Elavil] 30 mg PO HS 12/10/23 07/23/24 History Cholecalciferol (Vitamin D3) 50 mcg PO DAILY 12/10/23 07/23/24 History [Vitamin D3 (50 Mcg = 2000 Iu)] Isosorbide Mononitrate [Imdur] 120 mg PO DAILY 12/10/23 07/23/24 History Levothyroxine Sodium [Synthroid] 125 mcg PO DAILY 12/10/23 07/23/24 History Multivitamins, Thera [Multivitamin 1 tab PO DAILY 12/10/23 07/23/24 History (formulary)] QUEtiapine [SEROquel] 400 mg PO HS 12/10/23 07/23/24 History Vitamin C/Biotin [Hair, Skin and 1 tab PO DAILY 12/10/23 07/23/24 History Nails Chew] Losartan [Cozaar] 25 mg PO DAILY #30 tab 12/12/23 07/23/24 Rx Cyclobenzaprine [Flexeril] 5 mg PO BID PRN #28 tablet 06/04/24 07/23/24 Rx Albuterol Inhaler [Ventolin Hfa 1 - 2 puff INHALATION RT-Q6H PRN 06/12/24 07/23/24 History Inhaler] Pregabalin [Lyrica] 150 mg PO BID 06/12/24 07/23/24 History Rosuvastatin [Crestor] 10 mg PO HS 06/12/24 07/23/24 History Vilazodone HCl [Viibryd] 40 mg PO DAILY 06/12/24 07/23/24 History oxyCODONE HCL [OxyCONTIN] 20 mg PO Q12H 06/12/24 07/23/24 History Allergies Allergy/AdvReac Type Severity Reaction Status Date / Time ciprofloxacin [From Cipro] Allergy Anaphylaxis Verified 07/23/24 15:54 morphine Allergy Hallucinati Verified 07/23/24 15:54 ons Penicillins Allergy Swelling/Hi Verified 07/23/24 15:54 ves vancomycin Allergy Dyspnea Verified 07/23/24 15:54 ketorolac tromethamine AdvReac Itching Verified 07/23/24 15:54 [From Toradol] NSAIDS (Non-Steroidal AdvReac STOMACH Verified 07/23/24 15:54 Anti-Inflamma ULCER Physical Examination Gen: AOx3, NAD VSS stable at this time Integument: well-healed incision noted to the lumbar spine. No erythema, no areas of soft tissue swelling, no skin breakdown Palpation: Mild tenderness with palpation of the paraspinal region of the lumbar spine ROM: Full range of motion in all major muscle groups of the bilateral upper and lower extremities, no focal deficits appreciated Sensory Exam: Senory exam to light touch is intact C5-T1 Senosry exam to light touch is intact L2-S1 Motor: 4+/5 strength appreciated bilateral upper extremities with shoulder elevation, shoulder abduction, elbow extension, elbow flexion, wrist extension, wrist flexion, intrinsics, warehouse order picker 4/5 length appreciated the bilateral lower extremities with hip flexion, knee extension, knee flexion, plantarflexion, dorsiflexion, EHL, FHL Reflexes: 2/4 in all UE and LE Negative Charissa's bilaterally Negative clonus bilaterally Results - Labs Labs: Abnormal Lab Results - Last 24 Hours (Table) 07/23/24 07/23/24 Range/Units 14:54 14:54 Hct 46.2 H (34.0-46.0) % MCV 103.2 H (80.0-100.0) fL Chloride 110 H (98-107) mmol/L Glucose 132 H (74-99) mg/dL H & H 07/23/24 Range/Units 14:54 Hgb 14.3 (11.4-16.0) gm/dL Hct 46.2 H (34.0-46.0) % Coagulation 07/23/24 Range/Units 14:54 INR 1.0 (<1.2) Result Diagrams: 07/23/24 14:54 07/23/24 14:54 - Diagnostic results CT Scan - lumbar: report reviewed, image reviewed Assessment and Plan Assessment: Chronic low back pain History of revision [id number], 05/30/2024, stable appearing components Multiple medical comorbidities Plan: I was able to discuss the case, this to include physical exam findings and imaging studies my attending Dr. Monroy's and. He was also able to review the lumbar CT. hardware remains intact, there is no malalignment noted to this. There was some questions of fluid collection in the surgical bed. Very low concern at this time that this is causing any of the patient's current symptoms. Her lower extremities have continued to improve with regards to range of motion and strength. Patient has a very long history of chronic back pain and use of higher dose narcotics. Explained to patient that she will continue to have discomfort in her low back and this is can to take many months to improve. We discussed different activity she should be avoiding, like lifting dog food bags and other heavy objects. She should be continuing to utilize the brace when she is up and ambulating. No orthopedic spine surgical intervention recommended at this time Pain control, recommend restarting home medications GI and DVT prophylaxis per primary medical service Other medical specialty recommendations appreciated Orthopedically patient remains stable for discharge to home. I advised to the patient that she contact her pain management doctor to discuss the issue of using more of the medication than prescribed, they may be able to adjust her doses or other medications. Please contact our service with any further qu estions regarding this patient. Time with Patient: Less than 30
[2024-07-24 11:13] LABS: Basophils # (A) 0.04 X 10*3/uL (0.00-0.10); Basophils % (A) 0.6 %; Eosinophils # (A) 0.29 X 10*3/uL (0.04-0.35); Eosinophils % (A) 4.6 %; HCT 41.4 % (37.2-46.3); HGB 13.1 g/dL (12.0-15.0); Lymphocytes # (A) 2.19 X 10*3/uL (0.90-5.00); Lymphocytes % (A) 34.8 %; MCH 32.3 pg (27.0-32.0); MCHC 31.6 g/dL (32.0-37.0); MCV 102.2 FL (80.0-97.0); Mean Platelet Volume 10.9 FL (9.5-12.2); Monocytes # (A) 0.38 X 10*3/uL (0.20-1.00); NRBC Per 100 WBC 0 X 10*3/uL (0.00-0.01); Neutrophils # (A) 3.36 X 10*3/uL (1.80-7.70); Neutrophils % (A) 53.5 %; Platelet Count 135 X 10*3/uL (140-440); RBC 4.05 X 10*6/uL (4.10-5.20); RBC Morphology Normal (Normal); RDW 14.4 % (11.5-14.5); WBC 6.29 X 10*3/uL (4.50-10.00)
[2024-07-24] MEDS: oxyCODONE-APAP 10-325MG 1 EACH TAB PO PRN (12:08)
[2024-07-24 12:17] LABS: Chol/HDL Ratio 3.38 Ratio; Magnesium 1.9 mg/dL (1.5-2.4)
[2024-07-24 13:25] LABS: ALT 11 U/L (8-44); AST 23 U/L (13-35); Albumin 3.6 g/dL (3.8-4.9); Albumin/Globulin Ratio 1.64 Ratio (1.60-3.17); Alkaline Phosphatase 102 U/L (41-126); Blood Urea Nitrogen 13.6 mg/dL (9.0-27.0); Calcium 8.3 mg/dL (8.7-10.3); Carbon Dioxide 22.7 mmol/L (21.6-31.8); Chloride 105 mmol/L (96-109); Globulin 2.2 g/dL (1.6-3.3); Glucose 104 mg/dL (70-110); Potassium 4.4 mmol/L (3.5-5.5); Sodium 140 mmol/L (135-145); Total Bilirubin 0.3 mg/dL (0.3-1.2); Total Protein 5.8 g/dL (6.2-8.2)
[2024-07-24 14:23] VITALS: BP 115/57; PULSE 63; TEMP 98.4
--- NOTE | 2024-07-24 15:26 | P.DS ---
Providers Date of admission: 07/23/24 16:42 Expected date of discharge: 07/24/24 Attending physician: Serene White MD Consults: 07/23/24 16:42 Consult Physician Routine Consulting Provider: [facility] Consult Reason/Comments: chest pain Do you want consulting provider notified?: Yes Consult Physician Routine Consulting Provider: Nima Nova Consult Reason/Comments: post op seroma Do you want consulting provider notified?: Yes Primary care physician: Nathanael Nogueira Hospital Course: Discharge Diagnosis: Chest pain, acute coronary event ruled out. EKG showing sinus mechanism. Troponins were negative at less than 0.012 x 3 draws. Patient was evaluated by cardiology and cleared from cardiology perspective for outpatient follow-up in their office in 1 week. CAD status post stenting on Plavix. Continue cardiac medication regimen with aspirin 81 mg daily, rosuvastatin 10 mg nightly,, Plavix 75 mg daily, isosorbide mononitrate 120 mg daily, losartan 25 mg daily, and metoprolol 25 mg daily. Hypertension. Continue medication regimen with isosorbide mononitrate 120 mg daily, losartan 25 mg daily, and metoprolol 25 mg daily. Hyperlipidemia. Continue cardiac medication regimen with rosuvastatin 10 mg nightly. Postoperative seroma. Patient evaluated by orthospine surgery team. They discussed different activities patient should avoid and recommending that she continue to wear her brace when she is up and ambulating. Orthopedic surgery team advised patient that she needs to contact her pain management doctor to discuss the issue of using more of her pain medications than prescribed as they may be able to adjust her dose or recommend alternative medications, however orthopedic surgery team clearing patient from their perspective for discharge. Uncontrolled chronic back pain with left lower extremity radiculopathy Status post lumbar spine surgery on 05/30/2024 Prescription drug abuse/overuse Hypothyroidism. Continue levothyroxine 125 mcg daily. Anxiety with depression. Continue daily medication regimen with Seroquel 400 mg nightly and Elavil 30 mg nightly. Bipolar disorder with panic disorder. Continue daily medication regimen with Seroquel 400 mg nightly and Elavil 30 mg nightly. Nicotine dependence. Recommend smoking cessation. Daily cannabinoid use disorder. Recommend cessation of use. Hospital Course: Patient is a very pleasant 64-year-old female with a past medical history of CAD status post stenting on Plavix, hypertension, hyperlipidemia, hypothyroidism, fibromyalgia, anxiety, depression, bipolar disorder and panic disorder, history of prescription drug abuse, and daily cannabis use, nicotine dependence and recently underwent an extensive lumbar back surgery on 05/30/[address] Nova. She presented to the blood today with reports of uncontrolled chronic lower back pain radiating down left lower extremity and reports of midsternal chest pain radiating to left and right anterior chest and into neck. Patient reports this pain began 3 days ago and has progressively worsened, she reports that she has been taking her home Percocet more than prescribed and attempts to control this pain but has been unsuccessful. Patient reports she received her Percocet prescription from pain management clinic on July 08 and due to her uncontrolled lower back pain and new onset chest pain she has taken her entire prescription and is now worried about withdrawal. Patient very anxious tearful at time of examination. She denies having fevers, chills, diaphoresis, headache, lightheadedness, dizziness, palpitations, shortness of breath, cough or congestion, abdominal pain, involuntary loss of bowel or bladder, saddlebag anesthesias, or experiencing any numbness or focal weakness in her extremities. Upon arrival to our facility, patient underwent evaluation in the emergency department. Vital signs upon arrival show blood pressure 129/71, heart rate 88, respiratory rate 18, temp 98.5 F, and SpO2 of 96% on room air. EKG completed showing sinus rhythm at 68 bpm with no significant T wave or ST abnormalities upon personal review and interpretation. Labs completed and reviewed. CBC showing macrocytosis with MCV of 103.2 otherwise normal findings. Coagulation profile normal findings. BMP showing mild hyperchloremia with chloride of 110 otherwise normal findings. Blood glucose 132. Lactic acid 1.5. Liver profile unremarkable. Troponin was negative at less than 0.012. Chest x-ray completed negative for acute cardiopulmonary process. CT lumbar spine completed without contrast showing postsurgical changes with hardware intact, moderate degenerative changes throughout the spine, and surgical bed fluid collection measuring up to 7.6 cm concerning for postop seroma. Troponins trended and were negative at less than 0.012 x 3 draws. Patient was evaluated by cardiology and cleared from cardiology perspective for outpatient follow-up in their office in 1 week. Patient evaluated by orthospine surgery team. They discussed different activities patient should avoid and recommending that she continue to wear her brace when she is up and ambulating. Orthopedic surgery team advised patient that she needs to contact her pain management doctor to discuss the issue of using more of her pain medications than prescribed as they may be able to adjust her dose or recommend alternative medications, however orthopedic surgery team clearing patient from their perspective for discharge. Medically, patient is stable for discharge at this time, had multiple discussions throughout hospitalization on risks of opioid abuse/overuse and patient strongly encouraged to use alternative pain medications for breakthrough pain management. Patient to contact pain management physician regarding further refills as she just received a 30-day prescription on 07/08/2024. Recommend patient follow-up outpatient with PCP in 1 to 2 days and lace pinner in 1 week. Again patient will need to reach out to pain management physician for further prescription of narcotic medications. Patient also provided with list of community resources including outpatient counseling and therapy list and inpatient substance abuse facilities. Physical exam: Vital signs reviewed and stable. General: Nontoxic, no distress and appears stated age. Derm: Skin warm and dry, normal coloration for ethnicity. Head: Atraumatic, normocephalic and symmetric. Eyes: EOM's intact, no lid lag, and anicteric sclera Mouth: no lip lesions, mucus membranes moist Cardiovascular: regular rate and rhythm with normal S1S2, no murmur, positive posterior tibial pulses bilaterally, and cap refill < 2 seconds. Lungs: Respirations even, regular, and unlabored on room air. Lungs CTA bilaterally, no rhonchi, no rales, no wheezing, and no accessory muscle usage. Abdominal: soft, nontender to palpation, no guarding, no appreciable organomegaly Ext: ROM intact. No gross muscle atrophy, no edema, no contractures Neuro: Speech clear, face symmetrical and CN II-XII grossly intact with no noted focal neuro deficits Psych: Alert and oriented to person, place, time, and situation. Appropriate and pleasant affect. A total of 36 minutes of time were spent preparing this complex discharge summary. Pt was discharged on 07/24/2024 at 3:23 PM. Patient was seen independently by Nurse Practitioner. This document was prepared using [employer] dictation software. Please allow for errors in buckle attacher while rare they do occur. I reviewed the documentation as provided by the ANNE above, who is the original author of this note. I agree with the documented assessment and plan, with the following changes: none Patient Condition at Discharge: Stable Plan - Discharge Summary Discharge Rx Participant: No New Discharge Prescriptions: Continue Oxybutynin Chloride [oxyBUTYnin chloride ER] 10 mg PO HS Cholecalciferol (Vitamin D3) [Vitamin D3 (50 Mcg = 2000 Iu)] 50 mcg PO DAILY Isosorbide Mononitrate [Imdur] 120 mg PO DAILY Levothyroxine Sodium [Synthroid] 125 mcg PO DAILY Multivitamins, Thera [Multivitamin (formulary)] 1 tab PO DAILY QUEtiapine [SEROquel] 400 mg PO HS Cyclobenzaprine [Flexeril] 5 mg PO BID PRN #28 tablet PRN Reason: Muscle Spasm Vilazodone HCl [Viibryd] 40 mg PO DAILY Pregabalin [Lyrica] 150 mg PO BID Albuterol Inhaler [Ventolin Hfa Inhaler] 1 - 2 puff INHALATION RT-Q6H PRN PRN Reason: Shortness Of Breath Metoprolol Succinate (ER) [Toprol XL] 25 mg PO DAILY oxyCODONE-APAP 10-325MG [Percocet 10-325 mg] 1 tab PO QID PRN PRN Reason: Pain Clopidogrel [Plavix] 75 mg PO DAILY Amitriptyline HCl [Elavil] 30 mg PO HS Vitamin C/Biotin [Hair, Skin and Nails Chew] 1 tab PO DAILY Losartan [Cozaar] 25 mg PO DAILY #30 tab oxyCODONE HCL [OxyCONTIN] 20 mg PO Q12H Rosuvastatin [Crestor] 10 mg PO HS Discharge Medication List Metoprolol Succinate (ER) [Toprol XL] 25 mg PO DAILY 07/10/21 [History] Oxybutynin Chloride [oxyBUTYnin chloride ER] 10 mg PO HS 10/30/22 [History] Clopidogrel [Plavix] 75 mg PO DAILY 10/15/23 [History] oxyCODONE-APAP 10-325MG [Percocet 10-325 mg] 1 tab PO QID PRN 10/15/23 [History] Amitriptyline HCl [Elavil] 30 mg PO HS 12/10/23 [History] Cholecalciferol (Vitamin D3) [Vitamin D3 (50 Mcg = 2000 Iu)] 50 mcg PO DAILY 12/10/23 [History] Isosorbide Mononitrate [Imdur] 120 mg PO DAILY 12/10/23 [History] Levothyroxine Sodium [Synthroid] 125 mcg PO DAILY 12/10/23 [History] Multivitamins, Thera [Multivitamin (formulary)] 1 tab PO DAILY 12/10/23 [History] QUEtiapine [SEROquel] 400 mg PO HS 12/10/23 [History] Vitamin C/Biotin [Hair, Skin and Nails Chew] 1 tab PO DAILY 12/10/23 [History] Losartan [Cozaar] 25 mg PO DAILY #30 tab 12/12/23 [Rx] Cyclobenzaprine [Flexeril] 5 mg PO BID PRN #28 tablet 06/04/24 [Rx] Albuterol Inhaler [Ventolin Hfa Inhaler] 1 - 2 puff INHALATION RT-Q6H PRN 06/12/24 [History] Pregabalin [Lyrica] 150 mg PO BID 06/12/24 [History] Rosuvastatin [Crestor] 10 mg PO HS 06/12/24 [History] Vilazodone HCl [Viibryd] 40 mg PO DAILY 06/12/24 [History] oxyCODONE HCL [OxyCONTIN] 20 mg PO Q12H 06/12/24 [History] Follow up Appointment(s)/Referral(s): Estuardo Goins MD [Medical Doctor] - 1 Week Nathanael Nogueira DO [Primary Care Provider] - 1-2 days Patient Instructions/Handouts: Chest Pain (DC), Narcotic Safety (DC), Chronic Back Pain (DC), Opioid Safety (DC) Activity/Diet/Wound Care/Special Instructions: Activity: As tolerated. Take breaks as needed. Diet: Heart healthy and carb consistent diet. Avoid salts, or foods with hidden salts such as canned or boxed foods and frozen dinners. Extra salt makes your heart work harder and traps the fluid in your body for longer. Special Instructions: Take all of your medications as directed and remember to keep all of your doctor's appointments and follow-up as needed. As discussed with you, you are under a pain contract for your chronic pain with your pain management doctor. It is recommend that you utilize alternative methods of pain control such as heating packs, lidocaine patches, Tylenol and/or Motrin. Misuse/abuse of prescription pain medication can have detrimental effects on your health up to and including overdose and . It is important to only take this medication as prescribed. You will need to follow-up with your pain management doctor for additional narcotic prescription for management of your chronic pain. Thank you for allowing us to participate in your care, it was truly a pleasure having you for our patient!!! . Discharge/Stand Alone Forms: Community Resources, Outpatient Counseling, In Substance Abuse Facilities, Outpatient Therapy List Discharge Disposition: HOME SELF-CARE
--- NOTE | 2024-07-25 00:32 | P.CRDCN ---
History of Present Illness Consult date: 07/24/24 History of present illness: HISTORY OF PRESENTING ILLNESS 64-year-old PMH of extensive coronary artery disease status post PCI, hypertension dyslipidemia, hypothyroidism, fibromyalgia. Also history of prescription drug abuse. This time she came to the hospital because of increased back pain, and not feeling comfortable staying at home as she ran out of her pain medications. She was concerned about going into withdrawals not being having access to her pain medications. She reports some chest pain but it is not persistent. Admission ECG shows sinus rhythm with no significant ST changes which are concerning for acute ischemia. ECG is unchanged from prior comparison. Troponin enzymes are not elevated. REVIEW OF SYSTEMS 14 point review of system is negative except what is mentioned above in HPI. PHYSICAL EXAMINATION no jugular venous distention. Lungs: Clear to auscultation. Heart: Regular rate and rhythm, S1-S2, no S3, no murmur or rub. Abdomen: Soft nontender, positive bowel sounds. Extremities: No edema, Neuro: Alert, oritented, . Detailed neuro exam was not performed. ASSESSMENT Atypical chest pain Back pain after recent back surgery History of prescription drug abuse. Patient reports that she ran out of her pain medication and feels that she would have uncontrolled pain at home without them. Extensive history of coronary artery disease PLAN Continue aspirin, Plavix, Imdur 120 mg daily, metoprolol succinate 25 mg daily. Rosuvastatin 10 mg daily. If chest pain reoccurs, consider adding Ranexa and uptitrating beta-danish Estuardo Goins MD, FACC, RPVI Thank you for allowing [facility] to participate in thi s patient's care. Feel free to reach out in case of any followup questions. Past Medical History Past Medical History: Coronary Artery Disease (CAD), Chest Pain / Angina, Fibromyalgia, Hyperlipidemia, Hypertension, Myocardial Infarction (GA), Osteoarthritis (OA), Thyroid Disorder Additional Past Medical History / Comment(s): interstitial cystitis; constipation, gallstones, LUMBAR BACK PAIN Last Myocardial Infarction Date:: 2013 History of Any Multi-Drug Resistant Organisms: MRSA Date of last positivie culture/infection: 2022 MDRO Source:: from surgery Past Surgical History: Back Surgery, Bladder Surgery, Breast Surgery, Cholecystectomy, Heart Catheterization With Stent, Hysterectomy, Orthopedic Surgery Additional Past Surgical History / Comment(s): bladder stimulator, neck surgery, total 6 cardiac stents - back fusion, neck fusion, jeff bunionectomy, revision of back surgery screws, cage and rods were suppose to be placed but DR Nova doesn't see them on imaging. Past Anesthesia/Blood Transfusion Reactions: No Reported Reaction Date of Last Stent Placement:: approx 3 yrs ago Past Psychological History: Anxiety, Bipolar, Depression, Panic Disorder Additional Psychological History / Comment(s): "stress related" Smoking Status: Current every day smoker Past Alcohol Use History: None Reported Additional Past Alcohol Use History / Comment(s): quit smoking 11/2022 Past Drug Use History: Marijuana, Prescription Drug Abuse Additional Drug Use History / Comment(s): occ. - Past Family History Father Family Medical History: Cancer Medications and Allergies Home Medications Medication Instructions Recorded Confirmed Type Metoprolol Succinate (ER) [Toprol 25 mg PO DAILY 07/10/21 07/23/24 History XL] Oxybutynin Chloride [oxyBUTYnin 10 mg PO HS 10/30/22 07/23/24 History chloride ER] Clopidogrel [Plavix] 75 mg PO DAILY 10/15/23 07/23/24 History oxyCODONE-APAP 10-325MG [Percocet 1 tab PO QID PRN 10/15/23 07/23/24 History 10-325 mg] Amitriptyline HCl [Elavil] 30 mg PO HS 12/10/23 07/23/24 History Cholecalciferol (Vitamin D3) 50 mcg PO DAILY 12/10/23 07/23/24 History [Vitamin D3 (50 Mcg = 2000 Iu)] Isosorbide Mononitrate [Imdur] 120 mg PO DAILY 12/10/23 07/23/24 History Levothyroxine Sodium [Synthroid] 125 mcg PO DAILY 12/10/23 07/23/24 History Multivitamins, Thera [Multivitamin 1 tab PO DAILY 12/10/23 07/23/24 History (formulary)] QUEtiapine [SEROquel] 400 mg PO HS 12/10/23 07/23/24 History Vitamin C/Biotin [Hair, Skin and 1 tab PO DAILY 12/10/23 07/23/24 History Nails Chew] Losartan [Cozaar] 25 mg PO DAILY #30 tab 12/12/23 07/23/24 Rx Cyclobenzaprine [Flexeril] 5 mg PO BID PRN #28 tablet 06/04/24 07/23/24 Rx Albuterol Inhaler [Ventolin Hfa 1 - 2 puff INHALATION RT-Q6H PRN 06/12/24 07/23/24 History Inhaler] Pregabalin [Lyrica] 150 mg PO BID 06/12/24 07/23/24 History Rosuvastatin [Crestor] 10 mg PO HS 06/12/24 07/23/24 History Vilazodone HCl [Viibryd] 40 mg PO DAILY 06/12/24 07/23/24 History oxyCODONE HCL [OxyCONTIN] 20 mg PO Q12H 06/12/24 07/23/24 History Allergies Allergy/AdvReac Type Severity Reaction Status Date / Time ciprofloxacin [From Cipro] Allergy Anaphylaxis Verified 07/23/24 15:54 morphine Allergy Hallucinati Verified 07/23/24 15:54 ons Penicillins Allergy Swelling/Hi Verified 07/23/24 15:54 ves vancomycin Allergy Dyspnea Verified 07/23/24 15:54 ketorolac tromethamine AdvReac Itching Verified 07/23/24 15:54 [From Toradol] NSAIDS (Non-Steroidal AdvReac STOMACH Verified 07/23/24 15:54 Anti-Inflamma ULCER Physical Exam Vitals: Vital Signs Temp Pulse Pulse Resp BP BP Pulse Ox 07/24/24 14:22 98.4 F 63 18 115/57 93 L 07/24/24 07:28 97.8 F 67 18 151/77 97 07/24/24 07:08 57 L 16 111/64 98 07/24/24 02:15 61 18 129/62 93 L 07/24/24 01:00 57 L 15 Intake and Output 07/24/24 07/24/24 07/25/24 14:59 22:59 06:59 Other: Voiding Method Toilet # Voids 1 Weight 72.575 kg Results 07/24/24 06:20 07/24/24 06:20 Cardiac Enzymes 07/24/24 Range/Units 06:20 AST 23 (13-35) U/L Lipids 07/24/24 Range/Units 06:20 Triglycerides 222.00 H (0.00-149.00) mg/dL Cholesterol 154.00 (0.00-200.00) mg/dL HDL Cholesterol 45.60 (40.00-60.00) mg/dL Cholesterol/HDL Ratio 3.38 Ratio CBC 07/24/24 Range/Units 06:20 WBC 6.29 (4.50-10.00) X 10*3/uL RBC 4.05 L (4.10-5.20) X 10*6/uL Hgb 13.1 (12.0-15.0) g/dL Hct 41.4 (37.2-46.3) % Plt Count 135 L (140-440) X 10*3/uL Comprehensive Metabolic Panel 07/24/24 Range/Units 06:20 Sodium 140 (135-145) mmol/L Potassium 4.4 (3.5-5.5) mmol/L Chloride 105 (96-109) mmol/L Carbon Dioxide 22.7 (21.6-31.8) mmol/L BUN 13.6 (9.0-27.0) mg/dL Creatinine 0.8 (0.6-1.5) mg/dL Glucose 104 (70-110) mg/dL Calcium 8.3 L (8.7-10.3) mg/dL AST 23 (13-35) U/L ALT 11 (8-44) U/L Alkaline Phosphatase 102 (41-126) U/L Total Protein 5.8 L (6.2-8.2) g/dL Albumin 3.6 L (3.8-4.9) g/dL Intake and Output 07/24/24 07/24/24 07/25/24 14:59 22:59 06:59 Other: Voiding Method Toilet # Voids 1 Weight 72.575 kg Patient Weight 07/25/24 06:59 Weight 72.575 kg 07/24/24 06:20 07/24/24 06:20
== END 2024-07-24 16:00 | disposition home or self-care (01) ==
LOC: EC 13:55 → 6NMEDSUR 16:42
PROVIDERS: ADMIT Internal Medicine; ATTEND Internal Medicine
DX: R07.9 Chest pain, unspecified (principal); I21.3 ST elevation (STEMI) myocardial infarction of unspecified site; F31.9 Bipolar disorder, unspecified; F19.10 Other psychoactive substance abuse, uncomplicated; E03.9 Hypothyroidism, unspecified; E78.5 Hyperlipidemia, unspecified; E07.9 Disorder of thyroid, unspecified; E87.8 Other disorders of electrolyte and fluid balance, not elsewhere classified; D75.89 Other specified diseases of blood and blood-forming organs; M79.7 Fibromyalgia; M96.842 Postprocedural seroma of a musculoskeletal structure following a musculoskeletal system procedure; M19.90 Unspecified osteoarthritis, unspecified site; I25.10 Atherosclerotic heart disease of native coronary artery without angina pectoris; I10 Essential (primary) hypertension; F41.0 Panic disorder [episodic paroxysmal anxiety]; F17.200 Nicotine dependence, unspecified, uncomplicated; F12.90 Cannabis use, unspecified, uncomplicated; M54.10 Radiculopathy, site unspecified; M54.50 Low back pain, unspecified; G89.29 Other chronic pain; I25.2 Old myocardial infarction; Z79.02 Long term (current) use of antithrombotics/antiplatelets; Z79.82 Long term (current) use of aspirin; Z79.899 Other long term (current) drug therapy; Z79.890 Hormone replacement therapy; Z87.442 Personal history of urinary calculi; Z98.1 Arthrodesis status; Z88.6 Allergy status to analgesic agent; Z88.1 Allergy status to other antibiotic agents; Z88.5 Allergy status to narcotic agent; Z88.0 Allergy status to penicillin; Z88.8 Allergy status to other drugs, medicaments and biological substances; Z90.710 Acquired absence of both cervix and uterus; Z90.49 Acquired absence of other specified parts of digestive tract; Z71.51 Drug abuse counseling and surveillance of drug abuser; Z95.5 Presence of coronary angioplasty implant and graft
CPT/HCPCS: 96372 ×2; 96361 ×2; 96374; 99285; 36415; 93005; 80061; 80053 ×2; 83605; 83735; 84484; 85025 ×2; 85610; 85730; 71046; 72131; G0378 ×2; S4990; J2270; J1644 ×2

== ENCOUNTER → 2024-08-12 | Outpatient (CLI) | payer MEDICARE ==
--- NOTE | 2024-08-12 16:33 | XR ---
EXAMINATION TYPE: XR shoulder complete LT DATE OF EXAM: 08/12/2024 3:33 PM COMPARISON: None CLINICAL INDICATION: Female, 64 years old with history of M25.512 LEFT SHOULDER PAIN; [facility] TECHNIQUE: XR shoulder complete LT; examined in AP, internally rotated and scapular Y projections. FINDINGS: No evidence of acute osseous pathology, joint dislocation, or soft tissue swelling. The remaining po rtions of the visualized chest are unremarkable. Degeneration changes of the acromion, distal clavic le with osteophyte formation. There is osteophyte formation of the glenoid and humeral head. There is joint space narrowing of glenohumeral joint. IMPRESSION: 1. No acute osseous pathology. 2. Mild shoulder osteoarthrosis. [facility], , 08/12/2024 4:30 PM
== END | disposition home or self-care (01) ==
LOC: RADXRMAIN 15:14
PROVIDERS: ATTEND Internal Medicine
DX: M19.012 Primary osteoarthritis, left shoulder (principal)

== ENCOUNTER → 2024-08-18 | Outpatient (CLI) | payer MEDICARE ==
--- NOTE | 2024-08-18 13:12 | XR ---
EXAMINATION TYPE: XR hand complete RT DATE OF EXAM: 08/18/2024 12:48 PM COMPARISON: 08/18/2024 CLINICAL INDICATION: Female, 64 years old with history of M79.641; [facility] TECHNIQUE: XR hand complete RT Frontal, lateral and oblique views were obtained. FINDINGS: Normal alignment of the visualized joints. No acute osseous pathology is identified. No e vidence of soft tissue swelling. Multifocal degeneration changes with joint space narrowing and osteo phyte formation. Findings worse at the first digit carpal metacarpal joint and interphalangeal joints . IMPRESSION: 1. No acute osseous pathology. 2. Scattered osteoarthrosis throughout the joints of the hand which is moderate to severe at the fir st digit carpometacarpal joint. [facility], , 08/18/2024 1:10 PM
--- NOTE | 2024-08-18 13:21 | XR ---
EXAMINATION TYPE: XR forearm RT, XR elbow complete RT DATE OF EXAM: 08/18/2024 12:48 PM COMPARISON: 08/18/2024 CLINICAL INDICATION: Female, 64 years old with history of M79.641; [facility] TECHNIQUE: XR forearm RT, XR elbow complete RT; forearm examined in AP and lateral projections. Elbow was evaluated and 3 views. FINDINGS: No acute osseous pathology, soft tissue swelling or joint dislocations are seen. Degenerat ion changes of the joints of the wrist and elbow with joint space and osteophyte formation. IMPRESSION: No evidence of acute fracture. [facility], , 08/18/2024 1:18 PM
== END | disposition home or self-care (01) ==
LOC: RADXRMAIN 12:19
PROVIDERS: ATTEND Internal Medicine
DX: M19.011 Primary osteoarthritis, right shoulder (principal); M79.641 Pain in right hand

== ENCOUNTER 2024-10-28 12:26 | Emergency (ER) | payer MEDICARE ==
[2024-10-28 12:39] VITALS: RESP 20; TEMP 98.6
--- NOTE | 2024-10-28 12:56 | ED ---
URI HPI - General Chief Complaint: Upper Respiratory Infection Stated Complaint: KENNA Time Seen by Provider: 10/28/24 12:41 Source: patient, RN notes reviewed Mode of arrival: ambulatory Limitations: no limitations - History of Present Illness Initial Comments: Patient is a 64 year old female who is presenting for body aches, chills, and cough x 6 days. She states that on 10/22/24 she started having a productive cough, body aches and chills. She states that on 10/24/24 she had a zoom call with her PCP, who "diagnosed her with Flu A" and started her on Tamiflu. She states that she is now having abdominal pain and is unable to take a deep breath without coughing. She notes taking Tamiflu, Theraflu and Mucinex for "a week" with no improvement of symptoms. She states her sister was recently diagnosed with Flu A as well. She endorses a sore throat and chest pain that she attributes to her cough, as well as a fever with Tmax of 101. She notes that her cough was productive and she was "coughing up all kinds of stuff", but it is more dry now. She denies any change in appetite, nausea, vomiting, diarrhea, hemoptysis. - Related Data Home Medications Medication Instructions Recorded Confirmed Metoprolol Succinate (ER) [Toprol 25 mg PO DAILY 07/10/21 07/23/24 XL] Oxybutynin Chloride [oxyBUTYnin 10 mg PO HS 10/30/22 07/23/24 chloride ER] Clopidogrel [Plavix] 75 mg PO DAILY 10/15/23 07/23/24 oxyCODONE-APAP 10-325MG [Percocet 1 tab PO QID PRN 10/15/23 07/23/24 10-325 mg] Amitriptyline HCl [Elavil] 30 mg PO HS 12/10/23 07/23/24 Cholecalciferol (Vitamin D3) 50 mcg PO DAILY 12/10/23 07/23/24 [Vitamin D3 (50 Mcg = 2000 Iu)] Isosorbide Mononitrate [Imdur] 120 mg PO DAILY 12/10/23 07/23/24 Levothyroxine Sodium [Synthroid] 125 mcg PO DAILY 12/10/23 07/23/24 Multivitamins, Thera [Multivitamin 1 tab PO DAILY 12/10/23 07/23/24 (formulary)] QUEtiapine [SEROquel] 400 mg PO HS 12/10/23 07/23/24 Vitamin C/Biotin [Hair, Skin and 1 tab PO DAILY 12/10/23 07/23/24 Nails Chew] Albuterol Inhaler [Ventolin Hfa 1 - 2 puff INHALATION RT-Q6H PRN 06/12/24 07/23/24 Inhaler] Pregabalin [Lyrica] 150 mg PO BID 06/12/24 07/23/24 Rosuvastatin [Crestor] 10 mg PO HS 06/12/24 07/23/24 Vilazodone HCl [Viibryd] 40 mg PO DAILY 06/12/24 07/23/24 oxyCODONE HCL [OxyCONTIN] 20 mg PO Q12H 06/12/24 07/23/24 Previous Rx's Medication Instructions Recorded Losartan [Cozaar] 25 mg PO DAILY #30 tab 12/12/23 Cyclobenzaprine [Flexeril] 5 mg PO BID PRN #28 tablet 06/04/24 Azithromycin [Zithromax Z Pack] 0 tab PO DIRECTED #6 tab 10/28/24 predniSONE 50 mg PO DAILY #5 tab 10/28/24 Allergies Allergy/AdvReac Type Severity Reaction Status Date / Time ciprofloxacin [From Cipro] Allergy Anaphylaxis Verified 10/28/24 12:34 morphine Allergy Hallucinati Verified 10/28/24 12:34 ons Penicillins Allergy Swelling/Hi Verified 10/28/24 12:34 ves vancomycin Allergy Dyspnea Verified 10/28/24 12:34 ketorolac tromethamine AdvReac Itching Verified 10/28/24 12:34 [From Toradol] NSAIDS (Non-Steroidal AdvReac STOMACH Verified 10/28/24 12:34 Anti-Inflamma ULCER Review of Systems ROS Statement: Those systems with pertinent positive or pertinent negative responses have been documented in the HPI. ROS Other: All systems not noted in ROS Statement are negative. Past Medical History Past Medical History: Coronary Artery Disease (CAD), Chest Pain / Angina, Fibromyalgia, Hyperlipidemia, Hypertension, Myocardial Infarction ([place]), Osteoarthritis (OA), Thyroid Disorder Additional Past Medical History / Comment(s): interstitial cystitis; constipation, gallstones, LUMBAR BACK PAIN Last Myocardial Infarction Date:: 2013 History of Any Multi-Drug Resistant Organisms: MRSA Date of last positivie culture/infection: 2022 MDRO Source:: from surgery Past Surgical History: Back Surgery, Bladder Surgery, Breast Surgery, Cholecystectomy, Heart Catheterization With Stent, Hysterectomy, Orthopedic Surgery Additional Past Surgical History / Comment(s): bladder stimulator, neck surgery, total 6 cardiac stents - back fusion, neck fusion, jeff bunionectomy, revision of back surgery screws, cage and rods were suppose to be placed but DR Nova doesn't see them on imaging. Past Anesthesia/Blood Transfusion Reactions: No Reported Reaction Date of Last Stent Placement:: approx 3 yrs ago Past Psychological History: Anxiety, Bipolar, Depression, Panic Disorder Smoking Status: Current every day smoker Past Alcohol Use History: None Reported Past Drug Use History: Marijuana, Prescription Drug Abuse - Past Family History Father Family Medical History: Cancer General Exam Limitations: no limitations General appearance: alert, in no apparent distress Head exam: Present: atraumatic, normocephalic, normal inspection ENT exam: Present: normal exam, mucous membranes moist Neck exam: Present: normal inspection. Absent: tenderness, meningismus, lymphadenopathy Respiratory exam: Present: normal lung sounds bilaterally, wheezes. Absent: respiratory distress, rales, rhonchi, stridor Cardiovascular Exam: Present: regular rate, normal rhythm, normal heart sounds. Absent: systolic murmur, diastolic murmur, rubs, gallop, clicks GI/Abdominal exam: Present: soft, tenderness (epigastric), normal bowel sounds. Absent: distended, guarding, rebound, rigid Neurological exam: Present: alert, oriented X3, CN II-XII intact Skin exam: Present: warm, dry, intact, normal color. Absent: rash Course Vital Signs 10/28/24 12:34 Temperature 98.6 F Pulse Rate 69 Respiratory 20 Rate Blood Pressure 166/94 O2 Sat by Pulse 95 Oximetry Medical Decision Making - Medical Decision Making Was pt. sent in by a medical professional or institution (, PA, POULTRY BARN MANAGER, urgent care, hospital, or group home...) When possible be specific @ -No Did you speak to anyone other than the patient for history (EMS, parent, family, police, friend...)? What history was obtained from this source @ -No Did you review nursing and triage notes (agree or disagree)? Why? @ -I reviewed and agree with nursing and triage notes Were old charts reviewed (outside hosp., previous admission, EMS record, old EKG, old radiological studies, urgent care reports/EKG's, group home records)? Report findings @ -No old charts were reviewed Differential Diagnosis (chest pain, altered mental status, abdominal pain women, abdominal pain men, vaginal bleeding, weakness, fever, dyspnea, syncope, headache, dizziness, GI bleed, back pain, seizure, CVA, palpatations, mental health, musculoskeletal)? @COVID 19, RSV, influenza, pneumonia, acute bronchitis, URI, this list is not all inclusive EKG interpreted by me (3pts min.). @ -As above X-rays interpreted by me (1pt min.). @ -Chest x-ray shows COPD changes no evidence of pneumonia. CT interpreted by me (1pt min.). @ -None done U/S interpreted by me (1pt. min.). @ -None done What testing was considered but not performed or refused? (CT, X-rays, U/S, labs)? Why? @ -None What meds were considered but not given or refused? Why? @ -None Did you discuss the management of the patient with other professionals (professionals i.e. , PA, POULTRY BARN MANAGER, lab, RT, psych nurse, social group worker, best second jobs, teacher, credit officer, disability case manager)? Give summary @ -No Was smoking cessation discussed for >3mins.? @ -I discussed smoking cessation for greater than 3 minutes. The risk of smoking were discussed with the patient including but not limited to risks of cancer, stroke, coronary artery disease and COPD. Also discussed with patient were multiple methods of quitting smoking. Lastly we discussed the financial cost of smoking. Was critical care preformed (if so, how long)? @ -No Were there social determinants of health that impacted care today? How? (Homelessness, low income, unemployed, alcoholism, drug addiction, transportation, low edu. Level, literacy, decrease access to med. care, shelter, rehab)? @ -No Was there de-escalation of care discussed even if they declined (Discuss DNR or withdrawal of care, Hospice)? DNR status @ -No What co-morbidities impacted this encounter? (DM, HTN, Smoking, COPD, CAD, Cancer, CVA, ARF, Chemo, Hep., AIDS, mental health diagnosis, sleep apnea, morbid obesity)? @ -[COPD Was patient admitted / discharged? Hospital course, mention meds given and route, prescriptions, significant lab abnormalities, going to OR and other pertinent info. @ -Chest patient has mild wheezing, patient has acute tracheobronchitis with COPD exacerbation mild. No hypoxia discharged after treatment, Solu-Medrol. Return parameters discussed. Undiagnosed new problem with uncertain prognosis? @ -No Drug Therapy requiring intensive monitoring for toxicity (Heparin, Nitro, Insulin, Cardizem)? @ -No Were any procedures done? @ -No Diagnosis/symptom? @ -COPD exacerbation, acute tracheobronchitis Acute, or Chronic, or Acute on Chronic? @ -Acute Uncomplicated (without systemic symptoms) or Complicated (systemic symptoms)? @ -Complicated Side effects of treatment? @ -No Exacerbation, Progression, or Severe Exacerbation? @ -Exacerbation Poses a threat to life or bodily function? How? (Chest pain, [place], [place], pneumonia, PE, COPD, DKA, ARF, appy, cholecystitis, CVA, Diverticulitis, Homicidal, Vigil icidal, threat to staff... and all critical care pts) @ -No - Lab Data Lab Results 10/28/24 Range/Units 13:02 Influenza Type A (PCR) Not Detected (Not Detectd) Influenza Type B (PCR) Not Detected (Not Detectd) RSV (PCR) Not Detected (Not Detectd) SARS-CoV-2 (PCR) Not Detected (Not Detectd) - EKG Data -: EKG Interpreted by Me EKG Comments: EKG performed at 13: 07 sinus bradycardia rate of 58 IA 172 QRS 110 QT/QTc 431/428 Disposition Clinical Impression: COPD exacerbation, Acute tracheobronchitis Disposition: HOME SELF-CARE Condition: Stable Instructions (If sedation given, give patient instructions): Upper Respiratory Infection (ED) Additional Instructions: Please return to the Emergency Department if symptoms worsen or any other concerns. Prescriptions: predniSONE 50 mg PO DAILY #5 tab Azithromycin [Zithromax Z Pack] 0 tab PO DIRECTED #6 tab Is patient prescribed a controlled substance at d/c from ED?: No Referrals: Nathanael Nogueira DO [Primary Care Provider] - 1-2 days Time of Disposition: 14:21
--- NOTE | 2024-10-28 13:33 | XR ---
EXAMINATION TYPE: XR chest 2V DATE OF EXAM: 10/28/2024 1:28 PM COMPARISON: 07/23/2024 CLINICAL INDICATION: Female, 64 years old with history of cough, TECHNIQUE: XR chest 2V view(s) obtained. FINDINGS: The heart size is normal. The pulmonary vasculature is normal. The lungs are clear. IMPRESSION: 1. No acute pulmonary process. [facility], , 10/28/2024 1:31 PM
[2024-10-28 14:07] LABS: Influenza A Not Detected (Not Detectd); Influenza B Not Detected (Not Detectd); RSV Not Detected (Not Detectd)
[2024-10-28] MEDS: cefTRIAXone 1,000 MG VIAL (IM USE) IM STA (15:05)
[2024-10-28] MEDS: methylPREDNISolone SOD SUCCI 125 MG/2 ML VIAL IM ONE (15:11)
[2024-10-28] MEDS: IPRATROPIUM-ALBUTEROL 3 ML NEB INHALATION STA (16:03)
[2024-10-28 16:30] VITALS: BP 120/66; PULSE 67
== END 2024-10-28 16:29 | disposition home or self-care (01) ==
LOC: EC 12:26
DX: J44.1 Chronic obstructive pulmonary disease with (acute) exacerbation (principal); J20.9 Acute bronchitis, unspecified; F17.200 Nicotine dependence, unspecified, uncomplicated; Z88.0 Allergy status to penicillin; Z88.1 Allergy status to other antibiotic agents; Z88.5 Allergy status to narcotic agent; Z88.6 Allergy status to analgesic agent
CPT/HCPCS: 99285; 99406; 96372; 94640; 93005; 87636; 71046; J0696; J2919

== ENCOUNTER 2024-11-01 15:49 | Emergency (ER) | payer MEDICARE ==
[2024-11-01 16:10] VITALS: BP 194/74; PULSE 70; RESP 20; TEMP 98
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
--- NOTE | 2024-11-01 17:43 | XR ---
EXAMINATION TYPE: XR lumbar spine 2 or 3V DATE OF EXAM: 11/01/2024 5:01 PM COMPARISON: 11/17/2023 CLINICAL INDICATION: Female, 64 years old with history of pain, pain TECHNIQUE: 3 view(s) obtained. FINDINGS: Lumbar fixation is evident. Disc spacers are present at L2-3 L3-4 L4-5 and L5-S1. Vertebral body alig nment are preserved. Vertebral body heights are preserved. IMPRESSION: 1. No acute osseous abnormality radiographically apparent [facility], Workstation: [facility], 11/01/2024 5:40 PM
[2024-11-01] MEDS: oxyCODONE-APAP 5-325MG 1 EACH TAB PO STA (17:59)
[2024-11-01] MEDS: LIDOCAINE 4% PATCH TOPICAL ONE (18:01)
== END 2024-11-01 18:15 | disposition home or self-care (01) ==
LOC: EC 15:49
DX: M54.50 Low back pain, unspecified (principal); F17.200 Nicotine dependence, unspecified, uncomplicated; Z88.0 Allergy status to penicillin; Z88.1 Allergy status to other antibiotic agents; Z88.6 Allergy status to analgesic agent; Z88.8 Allergy status to other drugs, medicaments and biological substances; Y04.8XXA Assault by other bodily force, initial encounter
CPT/HCPCS: 72100; 99284